=== PATIENT | female | born 1940 | race Caucasian/White ===

== ENCOUNTER → 2017-11-02 08:06 | Outpatient (CLI) | payer MEDICARE, OTHER, SELFPAY ==
[2017-11-02 10:46] LABS: Anion Gap 8 (5-15); BUN 18 mg/dL (7-18); BUN/Creat Ratio 21.6 RATIO (10-20); Chloride 104 mmol/L (98-107); Cholesterol 253 mg/dL (200); Creatinine, Serum 0.83 mg/dL (0.55-1.02); EST Glomerular Filtration Rate 70 mL/min (>60); Est Glom Filt Rate - Afr Amer 85 mL/min (>60); Glucose 86 mg/dL (74-106); High Density Lipoprotein 60 mg/dL; Sodium Level 140 mmol/L (136-145); Thyroid Stim Hormone (TSH) 3.14 uIU/mL (0.358-3.74); Triglycerides 146 mg/dL; Very Low Density Lipoprotein 29 mg/dL (5-40)
== END ==
PROVIDERS: Family Provider Family Medicine; PCP Family Medicine; Visit Provider Family Medicine
DX: E78.5 Hyperlipidemia, unspecified (principal); E03.9 Hypothyroidism, unspecified; F32.9 Major depressive disorder, single episode, unspecified
CPT/HCPCS: 36415; 80048; 80061; 84443

== ENCOUNTER → 2018-06-14 | Outpatient (CLI) | payer MEDICARE, OTHER, SELFPAY ==
[2016-07-20 10:50] VITALS: BMI 28.7
[2018-06-14 17:30] LABS: Absolute Lymphocyte Count 1.35 X10^3/ul (0.83-4.51); Absolute Neutrophil Count 2.2 X10^3/uL (2.0-7.7); Basophil# 0.02 X10^3/uL; Basophil% 0.5 % (0-1); Eosinophil# 0.28 X10^3/uL; Eosinophils% 6.7 % (0-5); Hematocrit 37.9 % (37-47); Hemoglobin 12.9 g/dl (12.0-15.0); Lymphocyte # 1.35 X10^3/ul (4.0); Lymphocyte % 32.1 % (19-41); Mean Corpuscular Volume 88.1 fL (81-99); Mean Platelet Vol. 9.4 fl (6.2-12.0); Monocyte# 0.31 X10^3/uL; Monocyte% 7.4 % (0-10); Neutrophil # 2.23 X10^3/uL (2.7-7.7); Neutrophil % 53.1 % (47-70); Platelet Count 198 K/mm3 (150-450); RBC Distribution Width CV 12.3 % (11.6-14.6); RBC Distribution Width SD 38.9 fl (35.1-43.9); White Blood Count 4.2 K/mm3 (4.4-11.0)
[2018-06-14 17:32] LABS: POSITIVE COUNT NO; POSITIVE DIFFERENTIAL NO; POSITIVE MORPHOLOGY NO
[2018-06-14 17:43] LABS: Vitamin D,25 Hydroxy 65.3 ng/mL (29.95-100.01)
[2018-06-14 17:49] LABS: Anion Gap 7 (5-15); BUN 18 mg/dL (7-18); BUN/Creat Ratio 22.4 RATIO (10-20); Calcium,Total 8.7 mg/dL (8.5-10.1); Chloride 104 mmol/L (98-107); EST Glomerular Filtration Rate 73 mL/min (>60); Est Glom Filt Rate - Afr Amer 88 mL/min (>60); Glucose 90 mg/dL (74-106); Potassium 3.9 mmol/L (3.5-5.1); Sodium Level 139 mmol/L (136-145); Thyroid Stim Hormone (TSH) 4.05 uIU/mL (0.358-3.74)
== END | disposition home or self-care (01) ==
LOC: MFPLAB 15:03
PROVIDERS: Family Provider Family Medicine; PCP Family Medicine; Referring Provider Family Medicine; Visit Provider Family Medicine
DX: R53.83 Other fatigue (principal)
CPT/HCPCS: 36415; 80048; 82306; 84443; 85025

== ENCOUNTER → 2018-12-13 | Outpatient (CLI) | payer MEDICARE, OTHER, SELFPAY ==
[2016-07-20 10:50] VITALS: BMI 28.7
[2018-12-13 11:38] LABS: Thyroid Stim Hormone (TSH) 3.97 uIU/mL (0.358-3.74)
== END | disposition home or self-care (01) ==
LOC: MFPLAB 09:26
PROVIDERS: Family Provider Family Medicine; PCP Family Medicine; Referring Provider Family Medicine; Visit Provider Family Medicine
DX: E03.9 Hypothyroidism, unspecified (principal)
CPT/HCPCS: 36415; 84443

== ENCOUNTER → 2019-05-10 07:27 | Outpatient (CLI) | payer MEDICARE, OTHER, SELFPAY ==
[2016-07-20 10:50] VITALS: BMI 28.7
[2019-05-10 11:26] LABS: ALB/GLOB Ratio 1.1 RATIO (0.9-2.4); AST(SGOT) 18 U/L (15-37); Alanine Aminotransfer ALT/SGPT 26 U/L (13-56); Albumin, Serum 3.9 g/dL (3.2-5.0); Alkaline Phosphatase 97 U/L (45-117); Anion Gap 5 (5-15); BUN 17 mg/dL (7-18); BUN/Creat Ratio 23.3 RATIO (10-20); Calcium,Total 8.8 mg/dL (8.5-10.1); Chloride 105 mmol/L (98-107); Cholesterol 271 mg/dL (200); Creatinine, Serum 0.73 mg/dL (0.55-1.02); EST Glomerular Filtration Rate 81 mL/min (>60); Est Glom Filt Rate - Afr Amer 98 mL/min (>60); Globulin 3.4 g/dL (2.2-4.2); Glucose 90 mg/dL (74-106); High Density Lipoprotein 61 mg/dL; Protein, Total 7.3 g/dL (6.4-8.2); Sodium Level 139 mmol/L (136-145); Thyroid Stim Hormone (TSH) 2.25 uIU/mL (0.358-3.74); Triglycerides 161 mg/dL; Very Low Density Lipoprotein 32 mg/dL (5-40)
== END ==
PROVIDERS: PCP Family Medicine; Referring Provider Family Medicine; Visit Provider Family Medicine
DX: E03.9 Hypothyroidism, unspecified (principal); Z13.1 Encounter for screening for diabetes mellitus; Z13.220 Encounter for screening for lipoid disorders
CPT/HCPCS: 36415; 80053; 80061; 84443

== ENCOUNTER 2020-04-10 09:41 | Outpatient (RCR) | payer MEDICARE, OTHER, SELFPAY ==
[2016-07-20 10:50] VITALS: BMI 28.7
== END 2020-04-10 23:59 ==
LOC: IMMUN 09:41
PROVIDERS: PCP Family Medicine; Visit Provider Family Medicine
DX: Z23 Encounter for immunization (principal)
CPT/HCPCS: 0011A; 0012A

== ENCOUNTER → 2020-05-09 07:17 | Outpatient (CLI) | payer MEDICARE, OTHER, SELFPAY ==
[2020-05-09 07:42] LABS: Absolute Lymphocyte Count 0.56 X10^3/uL (0.83-4.51); Absolute Neutrophil Count 2.7 X10^3/uL (2.0-7.7); Basophil# 0.02 X10^3/uL; Basophil% 0.5 % (0-1); Eosinophils% 2.7 % (0-5); Hematocrit 36.5 % (37-47); Hemoglobin 12.2 g/dL (12.0-15.0); Lymphocyte # 0.56 X10^3/ul (4.0); Lymphocyte % 15.4 % (19-41); Mean Corp Hgb Conc 33.4 g/dL (32-36); Mean Corpuscular Hgb 29.8 pg (27.0-32.0); Mean Corpuscular Volume 89.2 fL (81-99); Mean Platelet Vol. 8.6 fl (6.2-12.0); Monocyte# 0.24 X10^3/uL; Monocyte% 6.6 % (0-10); NRBC Flagged by Analyzer 0 % (0-5); Neutrophil % 74.3 % (47-70); POSITIVE DIFFERENTIAL YES; Platelet Count 141 K/mm3 (150-450); Red Blood Count 4.09 M/mm3 (4.2-5.4); White Blood Count 3.6 K/mm3 (4.4-11.0)
[2020-05-09 07:44] LABS: Differential Indicated SCAN CRITERIA MET
[2020-05-09 08:34] LABS: ALB/GLOB Ratio 1.1 RATIO (0.9-2.4); AST(SGOT) 18 U/L (15-37); Alanine Aminotransfer ALT/SGPT 27 U/L (13-56); Albumin, Serum 3.8 g/dL (3.2-5.0); Alkaline Phosphatase 101 U/L (45-117); Anion Gap 8 (5-15); BUN 15 mg/dL (7-18); BUN/Creat Ratio 18.6 RATIO (10-20); Calcium,Total 8.7 mg/dL (8.5-10.1); Chloride 104 mmol/L (98-107); Cholesterol 268 mg/dL (200); Creatinine, Serum 0.81 mg/dL (0.55-1.02); EST Glomerular Filtration Rate 72 mL/min (>60); Est Glom Filt Rate - Afr Amer 88 mL/min (>60); Globulin 3.5 g/dL (2.2-4.2); Glucose 100 mg/dL (74-106); High Density Lipoprotein 62 mg/dL; Potassium 3.9 mmol/L (3.5-5.1); Protein, Total 7.3 g/dL (6.4-8.2); Sodium Level 139 mmol/L (136-145); Thyroid Stim Hormone (TSH) 2.69 uIU/mL (0.358-3.74); Triglycerides 185 mg/dL; Very Low Density Lipoprotein 37 mg/dL (5-40)
[2020-05-09 10:42] LABS: Differential Comment SCANNED
[2020-05-12 10:09] LABS: Pathologist Review Reviewed
== END ==
PROVIDERS: PCP Family Medicine; Visit Provider Family Medicine
DX: E03.9 Hypothyroidism, unspecified (principal); E78.5 Hyperlipidemia, unspecified
CPT/HCPCS: 36415; 80053; 80061; 84443; 85025

== ENCOUNTER → 2020-11-20 07:51 | Outpatient (CLI) | payer MEDICARE, OTHER, SELFPAY ==
[2020-11-20 10:38] LABS: ALB/GLOB Ratio 0.9 RATIO (0.9-2.4); AST(SGOT) 14 U/L (15-37); Alanine Aminotransfer ALT/SGPT 29 U/L (13-56); Albumin, Serum 3.6 g/dL (3.2-5.0); Alkaline Phosphatase 95 U/L (45-117); Anion Gap 6 (5-15); BUN 14 mg/dL (7-18); BUN/Creat Ratio 17.3 RATIO (10-20); Calcium,Total 8.6 mg/dL (8.5-10.1); Chloride 104 mmol/L (98-107); Cholesterol 260 mg/dL (200); Creatinine, Serum 0.81 mg/dL (0.55-1.02); EST Glomerular Filtration Rate 72 mL/min (>60); Est Glom Filt Rate - Afr Amer 87 mL/min (>60); Globulin 3.8 g/dL (2.2-4.2); Glucose 99 mg/dL (74-106); High Density Lipoprotein 59 mg/dL; Protein, Total 7.4 g/dL (6.4-8.2); Sodium Level 139 mmol/L (136-145); Triglycerides 192 mg/dL; Very Low Density Lipoprotein 38 mg/dL (5-40)
== END ==
PROVIDERS: PCP Family Medicine; Referring Provider Family Medicine; Visit Provider Family Medicine
DX: E78.5 Hyperlipidemia, unspecified (principal); E03.9 Hypothyroidism, unspecified
CPT/HCPCS: 36415; 80053; 80061; 84443

== ENCOUNTER → 2021-06-29 | Outpatient (CLI) | payer MEDICARE, OTHER, SELFPAY ==
--- NOTE | 2021-06-29 16:30 | RAD_ITS ---
STUDY: X-RAY - RIGHT ANKLE REASON FOR EXAM: Female, 80 years old. Ankle strain. Pain. TECHNIQUE: 3 view(s) of the ankle. COMPARISON: None. FINDINGS: Generalized osteopenia. Normal visualized distal tibia and fibula. Normal medial and lateral malleoli. Normal tibiotalar articulation and ankle mortise. Small inferior calcaneal spur. The visualized subtalar, talonavicular, calcaneocuboid and tarsal articulations are normal. Diffuse soft tissue swelling. RAD/Ankle min 3 Views IMPRESSION: Osteopenia with small inferior calcaneal spur. Diffuse soft tissue swelling. No acute finding. Electronically Signed: Jim Aquino MD at 10:15 EDT ,
== END | disposition home or self-care (01) ==
LOC: MTRAD 16:27
PROVIDERS: PCP Nurse Practitioner Family; Referring Provider Family Medicine; Visit Provider Family Medicine
DX: S96.911A Strain of unspecified muscle and tendon at ankle and foot level, right foot, initial encounter (principal)
CPT/HCPCS: 73610

== ENCOUNTER → 2022-06-07 | Outpatient (CLI) | payer MEDICARE, OTHER, SELFPAY ==
[2022-06-07 10:00] LABS: Absolute Lymphocyte Count 1.09 X10^3/uL (0.83-4.51); Absolute Neutrophil Count 1.1 X10^3/uL (2.0-7.7); Basophil# 0.03 X10^3/uL; Basophil% 1.1 % (0-1); Eosinophil# 0.29 X10^3/uL; Eosinophils% 10.7 % (0-5); Hematocrit 36.6 % (37-47); Hemoglobin 12.1 g/dL (12.0-15.0); Lymphocyte # 1.09 X10^3/ul (0.83-4.51); Lymphocyte % 40.1 % (19-41); Mean Corp Hgb Conc 33.1 g/dL (32-36); Mean Corpuscular Hgb 29.3 pg (27.0-32.0); Mean Corpuscular Volume 88.6 fL (81-99); Mean Platelet Vol. 8.8 fl (6.2-12.0); Monocyte# 0.22 X10^3/uL; Monocyte% 8.1 % (0-10); NRBC Flagged by Analyzer 0 % (0-5); Neutrophil # 1.08 X10^3/uL (2.7-7.7); Neutrophil % 39.6 % (47-70); Platelet Count 188 K/mm3 (150-450); RBC Distribution Width CV 12.8 % (11.6-14.6); RBC Distribution Width SD 41.2 fl (35.1-43.9); Red Blood Count 4.13 M/mm3 (4.2-5.4); White Blood Count 2.7 K/mm3 (4.4-11.0)
[2022-06-07 10:24] LABS: ALB/GLOB Ratio 1.1 RATIO (0.9-2.4); AST(SGOT) 19 U/L (15-37); Alanine Aminotransfer ALT/SGPT 26 U/L (13-56); Albumin, Serum 3.8 g/dL (3.2-5.0); Alkaline Phosphatase 84 U/L (45-117); Anion Gap 5 (5-15); BUN 17 mg/dL (7-18); BUN/Creat Ratio 19.4 RATIO (10-20); Calcium,Total 8.9 mg/dL (8.5-10.1); Chloride 107 mmol/L (98-107); Cholesterol 252 mg/dL (200); Creatinine, Serum 0.88 mg/dL (0.55-1.02); EST Glomerular Filtration Rate 65 mL/min (>60); Est Glom Filt Rate - Afr Amer 79 mL/min (>60); Globulin 3.6 g/dL (2.2-4.2); Glucose 94 mg/dL (74-106); High Density Lipoprotein 66 mg/dL; Potassium 3.9 mmol/L (3.5-5.1); Protein, Total 7.4 g/dL (6.4-8.2); Sodium Level 139 mmol/L (136-145); Triglycerides 94 mg/dL; Very Low Density Lipoprotein 19 mg/dL (5-40)
[2022-06-07 13:15] LABS: Microalbumin,Random Urine 21.3 mg/L (NO RANGE EST.)
== END | disposition home or self-care (01) ==
PROVIDERS: PCP Family Medicine; Referring Provider Family Medicine; Visit Provider Family Medicine
DX: D69.6 Thrombocytopenia, unspecified (principal); E78.5 Hyperlipidemia, unspecified; I10 Essential (primary) hypertension; E03.9 Hypothyroidism, unspecified
CPT/HCPCS: 36415; 80053; 80061; 82043; 84443; 85025

== ENCOUNTER → 2022-06-21 | Outpatient (CLI) | payer MEDICARE, OTHER, SELFPAY ==
--- NOTE | 2022-06-21 13:20 | BD_ITS ---
STUDY: DUAL ENERGY X-RAY ABSORPTIOMETRY / DXA REASON FOR EXAM: Female, 81 years old. 733.00OsteoporosisBONE DENSITY REASON FOR EXAM TECHNIQUE: Bone Mineral Density (BMD) measurements of lumbar spine and bilateral hips were obtained. COMPARISON: None. FINDINGS: Lumbar Spine (L1-L4): g/cm2 (1.118) / T-score (0.6) / Z-score (3.5) Findings are suggestive of normal bone density with a low fracture risk. Left Femur Total: g/cm2 (0.817) / T-score (-1.0) / Z-score (1.3) Left Femoral Neck: g/cm2 (0.676) / T-score (-1.6) / Z-score (0.9) Right Femur Total: g/cm2 (0.778) / T-score (-1.3) / Z-score (0.9) Right Femoral Neck: g/cm2 (0.618) / T-score (-2.1) / Z-score (0.4) BD/Dexa Bone Density Study IMPRESSION: The patient is considered osteopenic as outlined below according to World Flynn Organization (WHO) criteria with a high fracture risk. Reference Information: The T-score is the number of standard deviations above or below the standard which is normal for young adults at their peak bone mineral density. The World Health Organization (WHO) interprets the T-scores as follows: Above -1 Normal bone density Between -1 and -2.5 Osteopenia Equal to / or below -2.5 Osteoporosis As a practical clinical guideline, osteopenia may be graded as follows: Mild -1 through -1.5 Moderate -1.6 through -2.0 Severe -2.1 through -2.4 The Z-score is the number of standard deviations above or below age-matched controls. A Z-score of less than -1.5 would be considered abnormal. References: 1. NIH Osteoporosis and Related Bone Diseases www osteo.org 2. International Society for Clinical Densitometry www iscd.org 3. National Osteoporosis Foundation www nof.org Electronically Signed: Ramon Mendes MD at 14:41 EDT ,
== END | disposition home or self-care (01) ==
LOC: OPBD 13:15
PROVIDERS: PCP Family Medicine; Referring Provider Family Medicine; Visit Provider Family Medicine
DX: Z13.820 Encounter for screening for osteoporosis (principal); M81.0 Age-related osteoporosis without current pathological fracture
CPT/HCPCS: 77080

== ENCOUNTER → 2022-07-05 | Outpatient (CLI) | payer MEDICARE, OTHER, SELFPAY ==
[2022-07-05 10:40] LABS: Absolute Lymphocyte Count 1.06 X10^3/uL (0.83-4.51); Absolute Neutrophil Count 1.2 X10^3/uL (2.0-7.7); Basophil# 0.02 X10^3/uL; Basophil% 0.7 % (0-1); Eosinophil# 0.27 X10^3/uL; Eosinophils% 9.7 % (0-5); Hematocrit 38.3 % (37-47); Hemoglobin 12.6 g/dL (12.0-15.0); Lymphocyte # 1.06 X10^3/ul (0.83-4.51); Mean Corp Hgb Conc 32.9 g/dL (32-36); Mean Corpuscular Hgb 29.8 pg (27.0-32.0); Mean Corpuscular Volume 90.5 fL (81-99); Mean Platelet Vol. 8.9 fl (6.2-12.0); Monocyte# 0.27 X10^3/uL; Monocyte% 9.7 % (0-10); NRBC Flagged by Analyzer 0 % (0-5); Neutrophil # 1.16 X10^3/uL (2.7-7.7); Neutrophil % 41.5 % (47-70); Platelet Count 198 K/mm3 (150-450); RBC Distribution Width CV 12.6 % (11.6-14.6); RBC Distribution Width SD 41.6 fl (35.1-43.9); Red Blood Count 4.23 M/mm3 (4.2-5.4); White Blood Count 2.8 K/mm3 (4.4-11.0)
[2022-07-05 11:16] LABS: Thyroid Stim Hormone (TSH) 4.94 uIU/mL (0.358-3.74)
== END | disposition home or self-care (01) ==
LOC: MFPLAB 09:12
PROVIDERS: Nurse Practitioner Family; PCP Family Medicine; Visit Provider Family Medicine
DX: D72.9 Disorder of white blood cells, unspecified (principal); E03.9 Hypothyroidism, unspecified
CPT/HCPCS: 36415; 84443; 85025

== ENCOUNTER → 2022-09-15 | Outpatient (CLI) | payer MEDICARE, OTHER, SELFPAY ==
[2022-09-15 10:53] LABS: T4 Free Direct 1.19 ng/dL (0.76-1.46); Thyroid Stim Hormone (TSH) 2.38 uIU/mL (0.358-3.74)
== END | disposition home or self-care (01) ==
LOC: MTLAB 08:22
PROVIDERS: PCP Family Medicine; Visit Provider Family Medicine
DX: E03.9 Hypothyroidism, unspecified (principal)
CPT/HCPCS: 36415; 84439; 84443

== ENCOUNTER 2023-01-17 12:15 | Outpatient (CLI) | payer MEDICARE, OTHER, SELFPAY ==
[2023-01-17 12:39] LABS: Absolute Neutrophil Count 5.4 X10^3/uL (2.0-7.7); Basophil# 0.02 X10^3/uL; Basophil% 0.3 % (0-1); Eosinophil# 0.16 X10^3/uL; Eosinophils% 2.5 % (0-5); Hematocrit 38.8 % (37-47); Hemoglobin 12.7 g/dL (12.0-15.0); Lymphocyte % 7.9 % (19-41); Mean Corp Hgb Conc 32.7 g/dL (32-36); Mean Corpuscular Hgb 29.1 pg (27.0-32.0); Mean Platelet Vol. 8.7 fl (6.2-12.0); Monocyte# 0.26 X10^3/uL; Monocyte% 4.1 % (0-10); NRBC Flagged by Analyzer 0 % (0-5); Neutrophil # 5.39 X10^3/uL (2.7-7.7); Neutrophil % 84.7 % (47-70); POSITIVE DIFFERENTIAL YES; Platelet Count 207 K/mm3 (150-450); RBC Distribution Width SD 39.1 fl (35.1-43.9); Red Blood Count 4.36 M/mm3 (4.2-5.4); White Blood Count 6.4 K/mm3 (4.4-11.0)
[2023-01-17 12:43] LABS: Differential Indicated SCAN CRITERIA MET
--- NOTE | 2023-01-17 13:02 | CT_ITS ---
STUDY: CT ABDOMEN AND PELVIS WITH CONTRAST REASON FOR EXAM: Female, 82 years old. RLQ PAIN RADIATION DOSAGE (If Supplied By Facility): CTDIvol = ( 13.58 ) mGy, DLP = ( 814.31 ) mGycm TECHNIQUE: Transaxial images were obtained from the dome of the diaphragm to the symphysis pubis without oral contrast. IV 100mL Isovue-300 was administered. Sagittal and coronal images were reconstructed. Individualized dose optimization techniques were used for this CT. COMPARISON: None. FINDINGS: Calcified granuloma in the right lower lobe. Linear scarring in the left lower lobe. The visualized portions of the heart are within normal limits. There is decreased attenuation of the liver consistent with steatosis. Normal gallbladder and extrahepatic biliary system. Normal spleen. Normal pancreas. Normal bilateral adrenal glands. Normal right kidney. Normal left kidney. Normal visualized stomach. Normal small intestine. Normal colon. The appendix is visualized and appears normal. There is scattered atherosclerotic calcification of the abdominal aorta, without a demonstrated aneurysm. Normal inferior vena cava. Normal retroperitoneum. Cystocele. There is absence of the uterus consistent with a prior hysterectomy. Normal abdominal wall. There are diffuse degenerative changes of the visualized lumbar spine. Loss of the normal lumbar lordosis. Levoscoliosis. CT/Abdomen/Pelvis WITH Contrast IMPRESSION: Fatty infiltration of the liver. Status post hysterectomy. No acute abnormality is seen. Electronically Signed: Ramon Mendes MD at 15:19 EST ,
[2023-01-17 13:07] LABS: Differential Comment SCANNED
[2023-01-17 13:24] LABS: AST(SGOT) 16 U/L (15-37); Alanine Aminotransfer ALT/SGPT 27 U/L (13-56); Alkaline Phosphatase 70 U/L (45-117); Anion Gap 7 (5-15); BUN 17 mg/dL (7-18); BUN/Creat Ratio 18.3 RATIO (10-20); Calcium,Total 9.3 mg/dL (8.5-10.1); Chloride 105 mmol/L (98-107); Cholesterol 264 mg/dL (200); Creatinine, Serum 0.93 mg/dL (0.55-1.02); EST Glomerular Filtration Rate 61 mL/min (>60); Est Glom Filt Rate - Afr Amer 74 mL/min (>60); Globulin 3.9 g/dL (2.2-4.2); Glucose 150 mg/dL (74-106); High Density Lipoprotein 81 mg/dL; Potassium 4.1 mmol/L (3.5-5.1); Protein, Total 7.9 g/dL (6.4-8.2); Sodium Level 139 mmol/L (136-145); Thyroid Stim Hormone (TSH) 0.86 uIU/mL (0.358-3.74); Triglycerides 60 mg/dL; Very Low Density Lipoprotein 12 mg/dL (5-40)
== END 2023-01-17 23:59 | disposition home or self-care (01) ==
LOC: CT 12:16
PROVIDERS: PCP Family Medicine; Referring Provider Family Medicine; Visit Provider Family Medicine
DX: R10.31 Right lower quadrant pain (principal); Z13.21 Encounter for screening for nutritional disorder; E03.9 Hypothyroidism, unspecified; I10 Essential (primary) hypertension; E78.5 Hyperlipidemia, unspecified; D72.819 Decreased white blood cell count, unspecified; Z13.820 Encounter for screening for osteoporosis
CPT/HCPCS: 36415; 74177; 80053; 80061; 82306; 84443; 85025; Q9967

== ENCOUNTER 2023-01-31 08:00 | Outpatient (RCR) | payer MEDICARE, OTHER, SELFPAY ==
--- NOTE | 2023-01-31 09:05 | BH.SGPN.GN ---
Behaviors/Verbalizations/Mental Status: [] Eye contact is good. Motor activity is appropriate. Appearance is casual. Speech is Appropriate. Mood is anxious. Affect is congruent. Thoughts are linear and logical. No evidence of psychosis. Reviewed daily check in sheet and no reports of suicidal ideations or intent. Client Response/Progress/Benefit: [] Pt was an active participant in group discussions. Attentive. Daily symptom tracker notes 05/08 for depression, anxiety, and irritability. This was pt's first day in [facility] and she shared with the group symptoms and events that led her be admitted. States my brain just exploded in the past several months. Reports complicated grief related to her brother's of pancreatic cancer in October. Her anxiety increased which led to daily panic attacks, guilt, regret, anger, and depression. Began to isolation and avoid events. Also reports significant health anxiety which led to numerous medical tests which were negative. States I just can't fix myself so I came here. Group was supportive and provided encouragement which was beneficial. Plan is to continue in [facility] to prevent decompensation, stabilize anxiety, and increase healthy coping. Narrative Note: []
--- NOTE | 2023-01-31 10:10 | BH.SGPN.GN ---
Behaviors/Verbalizations/Mental Status: [] Eye contact is good. Motor activity is appropriate. Appearance is casual. Speech is Appropriate. Mood is euthymic. Affect is congruent. Thoughts are linear and logical. No evidence of psychosis. Client Response/Progress/Benefit: [] Client's first day in program and responded well. Was an active participant during interactive group discussions. Attentive during psychoeducation on the six types of boundaries (physical, emotional, intellectual, sexual, time, and material) AEB note-taking. Along with peers contributed to interactive discussion on defining what a boundary is in mental health. Client along with peers identified challenges to setting boundaries which included; fear of hurting other people, people pleasing mentality, and guilt. Client along with peers identified the benefits to setting boundaries such as having more time for self, not feeling taken advantage of, and improved mental health. Group discussed the mental health benefits to establishing boundaries at work, school, and home. Client benefited from increased awareness and insight on the importance/benefit to setting health boundaries. Will continue in IOP to prevent decompensation, stabilize anxiety, and improve functioning. Narrative Note: []
--- NOTE | 2023-01-31 11:10 | BH.SGPN.GN ---
Behaviors/Verbalizations/Mental Status: [] Eye contact is good. Motor activity is appropriate. Appearance is casual. Speech is Appropriate. Mood is euthymic. Affect is congruent. Thoughts are linear and logical. No evidence of psychosis. Client Response/Progress/Benefit: [] Client's first day in program. Client responded well to session AEB listening attentively to peers, providing some input, as well as taking notes throughout. Engaged in discussion on different styles of boundary setting. Reports connecting most with flexible style of boundary setting, identifying that is strong in her Opinions, but will help people out at times more than she should. Participated in small group discussion brainstorming various strategies for improving healthy boundary setting. Client reports wanting to begin using skill of being more direct. Seemed to benefit from increased awareness of how different boundary styles can impact mental health. Will continue IOP tx to increase self-care, improve overall functioning, and prevent decompensation. Narrative Note: []
--- NOTE | 2023-01-31 15:19 | BH.COMM ---
Communication Note Communication with Client Communication Note: Pt with pt to complete initial paperwork and administer the CSSR-S assessment and screening. No significant changes since intake assessment. Pt is low risk on the CSSR-S and has no history of suicide attempts in her lifetime. Pt admits to having thoughts of within the past month, but no SI. Discussed with tx team and pt will be admitted to [facility] level of care with diagnosis of MDD, recurrent, severe, without psychosis F 33.2.
--- NOTE | 2023-02-01 09:05 | BH.SGPN.GN ---
Behaviors/Verbalizations/Mental Status: [] Eye contact is good. Motor activity is appropriate. Appearance is casual. Speech is Appropriate. Mood is anxious. Affect is congruent. Thoughts are linear and logical. No evidence of psychosis. Reviewed daily check in sheet and no reports of suicidal ideations or intent. Client Response/Progress/Benefit: [] Pt was an active participant in group discussion. Attentive. Pt states I feel so much better since starting IOP. Reports early benefits from support. She talked briefly about mental health stigma and applauded those present for attending the program. She discussed social stressors (i.e. social media) and its overall impact on mental health. Check-in was superficial spending her time praising others for their progress and efforts. This remains her first week in IOP and would appear she struggles with vulnerability at times in front of peers. Progress noted per pt report. Benefited from group support, encouragement, and feedback. Will continue in IOP to prevent decompensation, decrease anxiety, increase healthy coping, and improve functioning. Narrative Note: []
--- NOTE | 2023-02-01 10:10 | BH.SGPN.GN ---
Behaviors/Verbalizations/Mental Status: []Eye contact is fair. Motor activity is appropriate. Appearance is casual. Speech is Appropriate. Mood is euthymic. Affect is congruent. Thoughts are linear and logical. No evidence of psychosis. Client Response/Progress/Benefit: []Pt was an active participant in group discussions AEB listening attentively to others and providing feedback at times. Participated in and was engaged during experiential activity. Able to relate activity to group topic of FOF. Engaged during interactive discussion on what failure means to the group in which peers identified and defined failure. Group was able to identify impact of fear of failure on mental health. Attentive during interactive discussion on the role that FOF plays in mental wellness, depression, anxiety, and growth. Pt reported fear of failure has kept pt from going back to school. Benefited from increased awareness of how the role that FOF plays in mental health and decision-making. Will continue in IOP to prevent decompensation, and increase self-compassion, and reduce intensity of anxiety.? Narrative Note: []
--- NOTE | 2023-02-01 11:10 | BH.SGPN.GN ---
Behaviors/Verbalizations/Mental Status: []Pt alert and oriented, casually dressed and groomed. Eye contact good. Motor activity appropriate. Speech within normal limits. Affect congruent, mood euthymic and anxious. Thoughts linear, logical, no signs of hallucinations or delusions. Client Response/Progress/Benefit: []Pt responded well to session, engaged in the experiential activity and attentive throughout group processing. Pt completed fear of failure worksheet and was able to identify thoughts and behaviors that reinforce personal fear of failure including: fearing of judgement, avoidance, and nor setting goals. Pt participated in group discussion regarding strategies to overcome fear of failure. Identified wanting to work on?using self-compassion. Appeared to benefit from increased knowledge of strategies to combat fear of failure and gaining self-awareness. Pt will continue IOP tx to prevent decompensation, improve daily functioning, and reduce intensity of anxiety.? Narrative Note: []
--- NOTE | 2023-02-01 12:35 | PCM.BH.PSYEV ---
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 The patient's symptoms of anxiety depression and grief have worsened since the of her 80-year-old brother and October 2022 from pancreatic cancer. She was very close to her brother and he about 3 months after diagnosis and this was very stressful and anxiety inducing for the patient. She began having panic attacks and worrying and having a fear of pancreatic cancer. Her primary care doctor did numerous scans and everything was negative and she was told it was probably anxiety. The patient states that she is no longer worried about having cancer. She has been avoiding activities like choir and swimming class though she is normally a pretty active and social person. She has a long history of some sleep difficulties but this has improved lately with the medication and she is sleeping 8 hours but wakes up with anxiety and some nausea. She remains very angry at her brother's doctors in [place] and she states that in her history she has used anger often as a defense mechanism. She was referred to the [facility] by a friend who recently did the program. She denies any history of self-harm. She is a worrier by nature and states that her brain never shuts off. She has endorsed sad mood but she states it is less sad and has improved lately. She denies hopelessness but admits to occasional worthlessness and admits to feeling guilty. She is somewhat anhedonic. She lost 5 pounds since October when her brother but her appetite has improved lately. Her energy level is okay overall and concentration is a little decreased. She denies passive thoughts of and denies suicidal ideation states that she would never do that to my family. She denies plan for suicide, homicidal ideation, hallucinations, delusions or symptoms of jeny ever. She is a worrier by nature and often ruminates negatively. She is avoiding social situations now because she does not want to have to explain anything to people. She is having panic attacks about 2 times a day. She denies OCD, trauma, seizure, head trauma or PTSD. She has a history of bulimia with purging by enemas but only in high school and nothing since. Current Psychiatric Medications: [] Celexa 40 mg p.o. daily (dose increased 1 month ago); trazodone 150 mg p.o. nightly; Ativan of unknown dose that her sister has and she takes 1 once in a while for anxiety. Past Psychiatric History: [] 1 psych admit 1996 at age 56 where she was very anxious and depressed. She was weaned off of amitriptyline recently after being on it 30 years and last took it 2 weeks ago. She has been depressed off-and-on all her life starting in her teens because she was the oldest with 3 younger brothers and there were not many opportunities for women in those days and she did not really want to be a girl. She took her first psych meds at age 23 or so after being sent to [place] by herself by a [employer] she was in. She took Ativan for panic attacks once a week and it has helped her but she is afraid of getting addicted to it. She was not dependent on Valium in the past when she took it for anxiety. She states that she has taken a lot of meds in the past. She had counseling for the first time at age 33 and it has been helpful and that was during her first marriage difficulties. Substance Use History: [] She takes 1 shot of alcohol rarely and has had none since her brother in October because she is afraid of using drugs for depression. Non-smoker. No other drug use. No rehab ever. Allergies: [] Contrast media, Zocor, Paxil, Lipitor, Crestor Medications: [] Psych meds plus thyroxine, Amopiline besilate for high blood pressure Past Medical History: [] Hypertension, hypothyroidism, arthritis in 1 foot. She has had a hysterectomy with 1 ovary remaining. She had left shoulder replacement. Family Psychiatric History: [] Mother at age 94 and father at age 87 after stroke. Mother and father both had anxiety and depression. Paternal grandfather completed suicide. Mother was addicted to Librium she took for anxiety. She has 1 son with depression and an second son with OCD. Personal/Social History: [] She was born and raised in [place] and describes her childhood as a bummer. She was the oldest child and only girl with 3 younger brothers. She felt somewhat ignored and like the boys were more important than her. She helped his father and his business however at age 9 and was proud of that. Her mother and father were not loving when she was young and never hugged or kissed her. Her father was mean to her second brother all the time but the patient states she was never abused verbally, physically or sexually. At age 19 the patient wanted to get training as a nurse and her parents were not supportive of a girl getting education so she joined a [employer] at age 19 because she knew she could get training as a nurse. The patient states that her mother could not love anyone when her children got older. The patient hated school because it was a [employer] school and she states that the months told her that everything was a sin. She goes to gnosticism now but does not believe it. She is in the choir but is having issues with some of the women because they are very critical. She graduated high school and work till age 19 until she could join the con[employer] to get educated as a nurse. Brothers went to college. Patient was a none from her and the comment for 9 years and then her first at age 30 after leaving the convent he was. He was an alcoholic and they were 14 years and produced 2 sons. She got for the second time at age 50 and has 7 grandkids and is close to most of them. There was verbal abuse by her first but no abuse by her second who is supportive of her. Legal History: [] Negative no arrests. 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 Review of Systems: [] Patient has arthritis and pain sometimes in her foot and gets lightheaded at times but review of systems is otherwise negative except as noted in the present illness. Vital Signs: [] Vital signs reviewed in the nurses notes and records and updated and the patient is deemed medically able to participate in the IOP. Laboratory: Labs were done by outpatient providers. Mental Status Examination: [] Patient is an 82-year-old female who appears normal for stated age and is casually dressed and groomed with good hygiene. She is ambulatory with a normal gait and has no psychomotor agitation or retardation. Eye contact is good and speech is normal rate and rhythm and fluent with no pressure. Mood is depressed and anxious. Affect is mildly constricted. Thought process is goal-directed and organized. Thought content: There is no evidence of passive thoughts of , suicidal ideation, plan for suicide, homicidal ideation, hallucinations, delusions or jeny. Reality testing is intact. Intelligence is above average. Judgment is intact. Insight is good. Diagnoses: [] 1. Major depressive disorder, recurrent, severe without psychosis 2. Generalized anxiety disorder 3. Bereavement 4. Panic disorder 5. Primary support issues Plan: [] The patient will start the IOP in behavioral health at [facility] as the structure, support, education and group therapy will hopefully prevent worsening of the patient's symptoms that might require hospitalization. She felt safe during the interview and if it anytime she does not feel safe she will let us know or go to the emergency room. The risk, options, possible complications and side effects of the medications were discussed with the patient and she understands and accepts these. The patient agrees to decrease her trazodone to 100 mg p.o. nightly. In addition she agrees to add Seroquel 12.5 mg p.o. nightly and a prescription is sent in for this. The patient agrees to try to go back to her swimming class to help get rid of some of her nervous energy. I will see the patient in follow-up in 2 weeks and she will continue to follow-up with her outpatient medical and psychiatric providers.
--- NOTE | 2023-02-01 12:47 | BH.DR.ITP ---
Initial Treatment Plan Patient Information Visit Information: ADMISSION DATE: EXPECTED LOS: 4-6 weeks Problems/Symptoms Problem #1:: Anxiety Symptom:: Worry, rumination, panic attacks, avoidance Problem #2:: Depression Symptom:: Sadness, worthlessness, guilt, anhedonia, biological disruption of appetite, biological disruption of sleep, decreased concentration
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
--- NOTE | 2023-02-01 15:19 | BH.MTP ---
Master Treatment Plan Patient Information Program Physician:: Dr. 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 Functional Impact: Pt is an 82-year-old female with a long-standing history of depression and anxiety. Pt referred by a friend to [facility] tx due to pt's decompensation in mental health symptoms over the past few months. Pt reports trigger was her brother passing away in October of 2022. Pt shared my brain just cracked and pt became severely anxious with panic attacks. Pt reports two weeks ago her symptoms were the worst and pt had to get a scan done by her PCP because pt was convinced she had prostate cancer like my brother. Pt endorses a depressed mood with anhedonia, isolation, crying spells, anger, and guilt. Pt was having panic attacks every night, but Trazodone has helped with this. Pt still having panic attacks during the day and pt constantly worries. Pt's symptoms are impacting her overall functioning and quality of life. Goal Relevant Strengths/Supports: Pt is motivated, has lots of support from friends and family, and is excited about tx. Pt is also very healthy for her age and independent. Objectives Objective #1: Stated Objective: Client will learn and implement 2-3 calming skills to reduce overall anxiety and manage anxiety Interventions: Therapist and group sessions will help client identify physiological warning signs of anxiety, increase awareness of thoughts that increase anxiety, and identify behaviors that reinforce anxious symptoms. Group and individual counseling will teach client calming skills to help manage anxious symptoms. Discharge Criteria: Client will have achieved this goal when can verbalize at least 2 calming skills and reports skills successfully help reduce anxious symptoms. Target Date: 03/14/23 Review Date: 02/21/23 Status: open Objective #2: Stated Objective: Pt will decrease anxious symptoms AEB pt?s score on the DSM 5 cross-cutting measure improve pt?s daily functioning. Interventions: Through groups and individual therapy, pt will be provided education about anxiety?s impact on body and common physiological reaction to anxiety. Therapist will teach pt appropriate breathing techniques and build healthy coping skills to manage daily anxieties. Will introduce fear ladder and help client walk through personal fear ladder. Discharge Criteria: Pt will have met this goal when pt?s score on the DSM 5 cross cutting measure for anxiety has been decreased and per pt?s report daily functioning has improved. Target Date: 03/14/23 Review Date: 02/21/23 Status: open Problem/Goal #2 Problem/Goal #2 Stated Goal:: client will decrease depressive symptoms and isolation due to Major Depressive Disorder through Intensive Outpatient Program. Description of Barriers: grieving the loss of her brother, panic symptoms, and anxious thoughts. Functional Impact: Pt is an 82-year-old female with a long-standing history of depression and anxiety. Pt referred by a friend to [facility] tx due to pt's decompensation in mental health symptoms over the past few months. Pt reports trigger was her brother passing away in October of 2022. Pt shared my brain just cracked and pt became severely anxious with panic attacks. Pt reports two weeks ago her symptoms were the worst and pt had to get a scan done by her PCP because pt was convinced she had prostate cancer like my brother. Pt endorses a depressed mood with anhedonia, isolation, crying spells, anger, and guilt. Pt was having panic attacks every night, but Trazodone has helped with this. Pt still having panic attacks during the day and pt constantly worries. Pt's symptoms are impacting her overall functioning and quality of life. Goal Relevant Strengths/Supports: Pt is motivated, has lots of support from friends and family, and is excited about tx. Pt is also very healthy for her age and independent. Objectives Objective #1: Stated Objective: Client will learn and utilize 2-3 healthy coping strategies to manage depressive symptoms. Interventions: Therapist and group will utilize CBT techniques to assist client with understanding the connection between thoughts, feelings and behaviors. Education will be provided on behavioral activation. Therapist will assist client in learning internal coping strategies to manage depressive symptoms, along with helping client identify triggers. Discharge Criteria: Client will have achieved this goal when can verbalize and has practiced at least 2 healthy coping strategies that successfully manage depressive symptoms. Target Date: 03/14/23 Review Date: 02/21/23 Status: open Objective #2: Stated Objective: Pt will decrease depressive symptoms AEB pt?s score on the DSM 5 cross-cutting measure and improve pt?s daily functioning. Interventions: Through groups and individual therapy, pt will be provided with education on cognitive distortions, mistaken beliefs, and identifying and combating negative self-talk. Therapist will assist pt with getting back into the activities she once enjoyed as well as increasing healthy coping strategies. Discharge Criteria: Pt will have met this goal when pt?s score on the DSM 5 cross cutting measure for depression has been decreased and per pt?s report daily functioning has improved. Target Date: 03/14/23 Review Date: 02/21/23 Status: open
== END 2023-02-02 23:59 ==
LOC: BHIOP 08:00
PROVIDERS: PCP Family Medicine; Referring Provider Psychiatry & Neurology Psychiatry; Visit Provider Psychiatry & Neurology Psychiatry
DX: F33.2 Major depressive disorder, recurrent severe without psychotic features (principal); F41.1 Generalized anxiety disorder; F41.0 Panic disorder [episodic paroxysmal anxiety]
CPT/HCPCS: S9480; 90853

== ENCOUNTER 2023-02-03 07:10 | Outpatient (RCR) | payer MEDICARE, OTHER, SELFPAY ==
--- NOTE | 2023-02-03 09:00 | BH.SGPN.GN ---
Behaviors/Verbalizations/Mental Status: [] Pt alert and oriented, neatly dressed and groomed. Eye contact good. Motor activity appropriate. Speech within normal limits-rapid. Affect congruent, mood euthymic. Thoughts linear, logical, no signs of hallucinations or delusions. Reviewed pt?s symptom tracker, no risk for suicidal ideation, plan, or intent 02/03/23 Client Response/Progress/Benefit: []Pt responded well to session, providing supportive statements to peers. Per pt's daily symptom tracker, pt's anxiety and depression have decreased from earlier this week. Pt reports her mood today is hopeful and pt stated she is really enjoying IOP. Pt shared she wants to continue to work on her anger, anxiety, and depression and she feels like IOP will help. Pt's wins today included setting a boundary last night and getting a medication change that was helpful. Pt appeared to benefit from connecting with peers and reflecting on her application of skills. Pt will continue IOP tx to prevent decompensation, improve daily functioning, and gain healthy coping skills. Narrative Note: []
--- NOTE | 2023-02-03 10:10 | BH.SGPN.GN ---
Behaviors/Verbalizations/Mental Status: [] Eye contact is fair. Motor activity is appropriate. Appearance is casual. Speech is Appropriate. Mood is euthymic. Affect is congruent. Thoughts are linear and logical. No evidence of psychosis. Client Response/Progress/Benefit: [] Client connected with topic of Anxiety and participated throughout, providing input and taking notes. Attentive during psychoeducation on different anxiety disorders and participated throughout interactive discussion defining anxiety and identifying cognitive and physiological symptoms of anxiety. Group discussed how anxiety can lead to missed opportunities in life. Common physical and cognitive symptoms identified by group included: ?what if thoughts?, ?fear of failure?, negative self-talk, feeling nauseous, shaky, and temperature change. Client identified seeking reassurance from the doctors and maintaining a super clean environment as their safety behaviors. Benefited from increased awareness and insight on anxiety and its impact. Plan is to continue in IOP to improve improve daily functioning, increase healthy coping skills, and prevent decompensation.
--- NOTE | 2023-02-03 11:10 | BH.SGPN.GN ---
Behaviors/Verbalizations/Mental Status: []Client alert and oriented, casually dressed and groomed. Eye contact good. Motor activity appropriate. Speech within normal limits. Affect congruent, mood euthymic and anxious. Thoughts linear, logical, no signs of hallucinations or delusions. Client Response/Progress/Benefit: []Client was an active participant AEB pt providing input and listening attentively to peers. Attentive during psychoeducation on mindfulness coping skills and their impact on reducing anxiety and improving overall mental health wellness. Group was able to identify self-soothing and mind-based coping skills which included: 5-senses, meditation, deep breathing, journaling, and body scan. Client would like to work on calming skill of guided imagery and deep breathing. Appeared to benefit from increasing repertoire of anxiety reduction skills. Client will continue in IOP tx to improve mood stability, further reduce depression, and promote healthy skill application. Narrative Note: []
--- NOTE | 2023-02-03 14:09 | BH.MDN ---
Multi-Disciplinary Note Note 30-min Individual: Time Started:: 12:00 Date: 02/03/23 Purpose of session/treatment goals addressed:: To gather information on pt's current stressors, symptoms, triggers, and tx goals. Another goal was to build rapport and provide emotional support. Eye Contact:: Good Motor Activity:: Appropriate Appearance:: Neat Speech:: Appropriate Mood:: Euthymic and Anxious Affect:: Full Thoughts:: Racing and Circular Staff Interventions:: rapport building, strengths perspective, treatment planning and goal setting Client Response:: Pt responded well to session, open to meeting with therapist. Pt reports feeling better today than she did when she started IOP as pt feels the group environment and topics are beneficial. Pt stated the medication change has been helpful and pt is less groggy when she wakes up in the morning on a lower dose of Trazodone. Pt stated she is still anxious about coming to group, but now she is equally as interested. Pt shared for years she has been wearing a mask and others see her as a fun-loving person who is always happy, but pt stated she has struggled for a long time with anger and self-esteem. Pt reports she wants to learn how to not fix others so much and work on making me a priority. Pt also wants to become more hopeful and learn how to love herself. Pt shared she used to be involved in different classes to learn more skills, but pt has not done this since becoming depressed. Pt receptive to exploring ideas and activities that will bring pt murphy. Risks/Concerns:: Pt denies any thoughts of or SI. Progress Toward Goals/Plan:: Pt's first week of IOP completed today. Pt reports benefitting from the connection with peers and her recent medication change. Pt reports her anxiety is ongoing, but she has not had a panic attack over the last few days. Pt's mood is still depressed and she reports ruminations and negative thoughts of self. Pt wants to work on improving her daily functioning, becoming more hopeful, self-care, and self-compassion. Pt will continue IOP tx to prevent decompensation, gain healthy coping skills, and increase social support. Time Stopped:: 12:30
--- NOTE | 2023-02-07 09:05 | BH.SGPN.GN ---
Behaviors/Verbalizations/Mental Status: [] Eye contact is good. Motor activity is appropriate. Appearance is casual. Speech is Appropriate. Mood is anxious. Affect is congruent. Thoughts are linear and logical. No evidence of psychosis. Reviewed daily check in sheet and no reports of suicidal ideations or intent. Client Response/Progress/Benefit: [] Pt was an active participant in group discussion. Attentive. Emotion for today is hopeful . Daily symptom tracker notes 3/5 fof depression and 2/5 for anxiety. Talked at length regarding numerous greif triggers over the weekend. Her brother was in town and he dropped off several items belonging to her recently brother. Going through the items viji back several memories both good and bad. She cotninues to struggle with his passing and blames herself. Having these items in the house appear to be grief triggers which can be exhausting . Group provided feedback and suggestions on how to manage grief triggers as well as normalizing selling, giving away, or throwing away certain items. Benefited from group support, encouragement, and feedback. Will continue in IOP to prevent decompensation, decrease anxiety, increase healthy coping, and improve functioning. Narrative Note: []
--- NOTE | 2023-02-07 10:10 | BH.SGPN.GN ---
Behaviors/Verbalizations/Mental Status: [] Eye contact is good. Motor activity is appropriate. Appearance is casual. Speech is Appropriate. Mood is euthymic and anxious. Affect is congruent. Thoughts are linear and logical. No evidence of psychosis. Client Response/Progress/Benefit: [] Pt was an active participant during group discussions and group activities; however, at times appeared distracted by own thoughts and others. Needed some redirection but mostly attentive during psychoeducation. Engaged during activity in which they identified which type of foods (i.e. carbs, sugar, salt, fast food, caffeine, etc) they seek out when sad, tired, angry, rushed, anxious, etc. Pt was able to identify the impact that certain foods have on their mental health through group example which was beneficial. Identified how she turns to foods that are high is sugar when bored which long-term reinforces anxiety. Benefited from increased awareness of the connection between nutrition and mental health. Will continue in IOP to prevent decompensation, increase healthy coping, and continue to improve anxiety management. Narrative Note: []
--- NOTE | 2023-02-07 11:10 | BH.SGPN.GN ---
Behaviors/Verbalizations/Mental Status: []Pt alert and oriented, neatly dressed and groomed. Eye contact good. Motor activity appropriate. Speech within normal limits. Affect congruent, mood euthymic. Thoughts linear, logical, no signs of hallucinations or delusions. Client Response/Progress/Benefit: [] Pt was an active participant throughout AEB contributing to group discussion and taking notes. Pt provided input during small group discussion on strategies to combat each factor maintaining adverse nutritional cycles. Worked with group to identify ways to foster more mindful nutritional choices. Each group participant identified one small step they could take today to begin establishing mental wellness promoting nutritional choices. Pt shared plans to?start reading more food labels and reflecting on her grocery shopping list. Appeared to benefit from gaining insight into mental wellness centered nutrition and identifying personal steps Pt can take to support own nutritional psychology. Recommended continued IOP tx to promote self-compassion, increase self-care, and combat distortions. ? Narrative Note: []
--- NOTE | 2023-02-08 09:30 | BH.NA_ITS ---
Physical Data Vital Signs Pulse Rate: 75 Blood Pressure: 144/88 Height/Weight Height: 1.68 m Weight:: 71.214 kg Weight in Pounds: 157.0 lbs Current Medication Compliance Medication Compliance Do you take your medication as prescribed?: Yes Nutritional History Appetite Nutritional Instructions: Describe your appetite:: Good Additional nutritional information:: Client states her appetite is increasing. Client states she has been drinking Ensure daily for protein. Functional Assessment Sleep Pattern Describe any problems with sleeping: Client states since starting Trazodone and now adding Seroquel, she is sleeping about 8-9 hours per night. Sensory/Communication Assess Vision Problems Do you have any vision problems?: Glasses Communication Problems Do you have difficulty understanding what people are saying?: No Medical Problems/History Cardiac Conditions Cardiovascular: Hypertension Hematologic Conditions Hematologic: Other (See comments) (history of leukopenia after COVID) Metabolic Conditions Metabolic: Hypothyroidism Musculoskeletal Conditions Musculoskeletal: Arthritis (foot, back) Pain Assessment Do you have acute or chronic pain?: Yes (OA- back and foot) Family History Family History Mother Hypertension Father Hypertension Depression CVA (cerebral vascular accident) Bladder cancer Surgical History Surgical History Have you had any surgeries? If so, list type and date:: Yes (hyster, T&A, varicose veins, left shoulder, trigger finger) Substance Abuse Substance Abuse Please describe substance abuse in the last 30 days:: Client states she rarely drinks alcohol, maybe 1 shot of bourbon per month. Client denies tobacco or substance use ever. Client states she drinks 1 cup of coffee per day. Mental Status Summary Mental Status Significant Findings/Observations on Appearance and Mood:: Client is alert and oriented x 4. Client is casually groomed with good hygiene. Client is cooperative with assessment. Client makes good eye contact. Client's voice has normal rate and volume. Client makes logical associations and has normal processing. Client denies delusions/hallucinations. Client denies SI. Suicide Assessment Suicidal Ideation Are you currently or have you been suicidal in the past?: No Suicidal Intentional Rating Scale (SIRS): No suicidal thoughts (past or present) Physician Notification Past Psychiatric History MH Treatment Hx Past Psychiatric Medications:: recently weaned off Amitriptyline, Paxil, Valium Age of first mental health symptoms: Client states she first had depression symptoms as a teenager and was first on medication for her mental health around age 23. Describe (age, circumstance, etc) any past hospitalizations: 1996 at [facility] Current providers for mental health treatment (counselor, psychiatrist, comp field case manager, etc.): None. Fall Risk Assessment Age Age: 71 or older Mental Status Mental Status: Willing & able to ask for assistance when needed Physical Status Physical Status: No problems Impairments Impairments: None Elimination Elimination: Continent AND independent Gait or Balance Gait or Balance: Walks independently Hx of Falls History of falls in the past 6 months: No known history Medications/Substances Psychotropics:: Antidepressants and Antipsychotics Others:: Antihypertensives Medications/substances used within the past 24 hours or ordered to administer: 3 or more of the medications/substances listed above Total Score Total Points:: 4 RN Summary of Impressions Impressions Recommendations Impressions: Psychiatric Issues: 1. Major depressive disorder, recurrent, severe without psychosis 2. Generalized anxiety disorder 3. Bereavement 4. Panic disorder Level of Care How do the client's current symptoms and functional deficits support need for this level of care?: Client was referred to IOP by a friend after she started having panic attacks and high anxiety after the of her brother. Client's brother in October 2022 from pancreatic cancer. Client states in early January, she started waking up with panic attacks in the morning, and was having about 2 panic attacks per day. Client states she had high health anxiety then, afraid she had pancreatic cancer too. Client states her PCP did tests and she does not have any physical health problems at this time. Client states in the last week, she has not had a panic attack. Client does report she had been having some nausea, but states her appetite is improving now and nausea is diminished. Client states she has been isolating, and states she wants to start doing the activities she used to again, like swimming. IOP will promote gains and prevent further decompensation while providing social support and skills training.
[2023-02-08 10:02] VITALS: BP 144/88; PULSE 75
--- NOTE | 2023-02-08 10:10 | BH.SGPN.GN ---
Behaviors/Verbalizations/Mental Status: [] Eye contact is good. Motor activity is appropriate. Appearance is casual. Speech is Appropriate. Mood is anxious. Affect is congruent. Thoughts are linear and logical. No evidence of psychosis. Client Response/Progress/Benefit: [] Pt was an active participant in group discussion. Attentive. Participated during interactive discussion on what is meant by Taking Action and what is holding them back from taking action on their mental health. Participated with peers during small group discussions on the impact of negative thoughts, depression, anxiety, guilt, low self-esteem, and anger on an individual's functioning. Areas that patient wished to gain more control over include; fear of losing my mind, people pleasing, and anger . Believes that if they can gain more control over those areas of their life they will be able to live more in the moment . Benefited from increased awareness of obstacles to mental wellness. Will continue in IOP to prevent decompensation, decrease anxiety, increase healthy coping, and improve functioning. Narrative Note: []
--- NOTE | 2023-02-08 11:10 | BH.SGPN.GN ---
Behaviors/Verbalizations/Mental Status: []Pt alert and oriented, casually dressed and groomed. Eye contact good. Motor activity appropriate. Speech within normal limits. Affect congruent, mood euthymic. Thoughts linear, logical, no signs of hallucinations or delusions. Client Response/Progress/Benefit: [] Pt responded well to session, taking notes and participating in worksheet discussion. Pt connected with the zones of action/change and that making sustainable change comes from stepping out of one?s comfort zone into the learning zone. Pt set a goal to gain control over their difficulty regulating anger. Pt will do this by not watching the news on the TV for one week. Pt identified support they might need as finding a substitute show and reaching out to supports. Appeared to benefit from identifying a small goal to benefit mental health. Will continue IOP tx to promote use of healthy coping skills and improve daily functioning. Narrative Note: []
--- NOTE | 2023-02-09 08:41 | BH.MDN ---
Multi-Disciplinary Note Note 30-min Individual: Time Started:: 09:00 Date: 02/08/23 Purpose of session/treatment goals addressed:: To work on identifying worries and developing strategies to help manage anxiety. Another goal was to discuss communicating boundaries. Eye Contact:: Good Motor Activity:: Restless Appearance:: Neat Speech:: Appropriate and Rambling Mood:: Euthymic and Anxious Affect:: Full Thoughts:: Racing and No evidence of hallucinations/delusions noted Staff Interventions:: thought challenging, CBT techniques, mindfulness skills, strengths perspective and goal setting Client Response:: Pt responded well to session, open to meeting with therapist. Pt reports feeling better this week since getting her medication changed and having a consistent social routine. Pt reports benefitting from the group topics and perspectives of others. Pt shared she is applying what she learned in boundary setting group and had a conversation with her daughter about boundaries in their relationship. Pt is anxious about another boundary she needs to set with her best friend of 70 plus years. Pt shared all she does is talk about the past and her family's problems. Pt shared she thinks her friend will be receptive because she has had to set boundaries before. Pt stated she wants to work on removing the chains in my life while in IOP. Pt feels that she carries other people's problems with her and that she has for most of her life. Pt expressed last week that she wants to focus on improving her self-care and putting her needs as a priority. Pt is going to start back with swimming this week which is something she has been avoiding due to anxiety. Pt is excited to start doing this again now that she knows how much avoidance worsens her anxiety. Risks/Concerns:: Pt denies any thoughts of or suicidal ideations. Progress Toward Goals/Plan:: Pt progressing well in IOP tx. Pt reports benefitting from the group setting and learning from peers. Therapist did have to address some of pt's language in group such as fat as it could trigger others. Pt receptive to this and understands to be mindful of peers. Pt reports her anxiety is decreasing, but she is still worrying frequently. Pt feels she is benefitting from the medication changes and socializing again. Pt reports her depression is reducing due to getting support and she is setting more boundaries which is helpful. Pt still endorses racing thoughts, ruminations, and a depressed mood. Pt will continue IOP tx to prevent decompensation, increase mood stability, and improve daily functioning. Time Stopped:: 09:35
--- NOTE | 2023-02-14 09:05 | BH.SGPN.GN ---
Behaviors/Verbalizations/Mental Status: [] Eye contact is good. Motor activity is appropriate. Appearance is casual. Speech is Appropriate. Mood is anxious. Affect is congruent. Thoughts are linear and logical. No evidence of psychosis. Reviewed daily check in sheet and no reports of suicidal ideations or intent. Client Response/Progress/Benefit: [] Pt was an active participant in group discussion. Attentive. Daily symptom tracker notes 4/5 for irritability and 3/5 for depression. Shared that her has notices that I'm doing better as far as leaving the house . Decreased anxiety and increased engagement outside of the house. Decreased isolation and avoidance, however pt states I still cry every morning . Depression,grief, and anxiety continue to impact functioning. She discussed increased insight and insight that she is taking on others peoples problems as well as her own. I just want to fix everyone but I can't fix myself . In the early stages of awareness and boundary-setting for herself which she reports is challenging. Progress noted per self report. Benefited from group support, encouragement, and feedback. Will continue in IOP to prevent decompensation, increase healthy coping, and to improve functioing. Narrative Note: []
--- NOTE | 2023-02-14 10:15 | BH.SGPN.GN ---
Behaviors/Verbalizations/Mental Status: []Pt alert and oriented, neatly dressed and groomed. Eye contact good. Motor activity appropriate. Speech within normal limits. Affect congruent, mood euthymic. Thoughts linear, logical, no signs of hallucinations or delusions. Client Response/Progress/Benefit: [] Pt engaged in group session AEB listening to others, taking notes throughout, and chose to take an active role in the activity. Group attentive during psychoeducation about emotion regulation and dysregulation. Pt shared she used to lash out a lot more and this would hurt pt?s relationships and cause pt to ruminate. Appeared to connect with scenarios reviewed in group on emotion regulation vs dysregulation. Pt benefited from session by gaining an increased understanding on the importance of managing emotions. Pt to continue IOP to promote mood stability, improve daily functioning, and further increase self-compassion. Narrative Note: []
--- NOTE | 2023-02-14 11:15 | BH.SGPN.GN ---
Behaviors/Verbalizations/Mental Status: []Pt alert and oriented, casually dressed and groomed. Eye contact good.. Motor activity appropriate. Speech within normal limits. Affect congruent, mood euthymic. Thoughts linear, logical, no signs of hallucinations or delusions. Client Response/Progress/Benefit: [] Pt active participant in session AEB Pt listening attentively to peers and providing input. Attentive during psychoeducation on 4 zones of regulation. Pt able to identify feelings and behaviors for each zone. Pt identified coping skills one can use to support self in each zone. Identified one skill from each zone she can practice which included: create a crisis plan, celebrate wins, share wins with others, and make lists. Benefited from increased education on zones of regulation or stages of alertness for emotions and healthy coping skills to use for each zone. Will continue IOP tx to reinforce healthy coping skills, challenge negative/distorted thoughts, and prevent decompensation.
--- NOTE | 2023-02-15 10:15 | BH.SGPN.GN ---
Behaviors/Verbalizations/Mental Status: []Pt alert and oriented, neatly dressed and groomed. Eye contact good. Motor activity appropriate. Speech tangential and rambling at times. Affect congruent, mood euthymic. Thoughts linear, logical, no signs of hallucinations or delusions. Client Response/Progress/Benefit: [] Pt was an active participant in group discussions and experiential activity. Participated during interactive discussion in which group worked together to define resilience (i.e. continuing to bounce back from hardship; willingness to keep trying) and what makes being resilient hard. Participated during interactive discussion on if resilience is something we are born with or can learn. Pt shared learning how to ask for help increases resilient. Able to relate the experiential activity back to topic of resilience. Worked well in small groups to identify strategies to build resilience. Benefited from increased awareness of the role of resilience in mental health and ways to build resilience. Will continue IOP tx to promote mood stability, further improve daily functioning, and reduce isolation. Narrative Note: []
--- NOTE | 2023-02-15 13:56 | BH.MDN_ITS ---
Multi-Disciplinary Note Note 30-min Individual: Time Started:: 09:20 Date: 02/15/23 Purpose of session/treatment goals addressed:: To work on goal #2 of pt's tx plan and set new goals for the week. Eye Contact:: Good Motor Activity:: Restless Appearance:: Neat Speech:: Rambling Mood:: Euthymic Affect:: Full Thoughts:: Linear, Logical and No evidence of hallucinations/delusions noted Staff Interventions:: thought challenging, psychoeducation on: (anger), CBT techniques, mindfulness skills and strengths perspective Client Response:: Pt responded well to session, open to meeting with therapist. Pt reports she is continuing to feel better and having less panic. Pt went back to her swimming exercise class last week and shared it went very well. Pt was glad to be around friends again after avoiding and isolating due to her depression and anxiety. Pt stated she is also allowing herself to take breaks throughout the day instead of just pushing through like she usually does. Pt reports many benefits from IOP group and shared it makes her feel inspired that people from all different walks of life get help. Pt shared her biggest problem right now is she still has a lot of anger and pt wants to manage this better. Discussed anger as a secondary emotion and the potential things that could fueling anger. Pt connected with grief, disappointment, guilt, and sadness as emotions that fuel pt's anger. Pt talked about how her upbringing also fueled a lot of her anger because she grew up during a time when I couldn't ever please my mother and my dad didn't want me to get an education. Pt shared that she is grateful for her now and how supportive he is of her mental health and love of learning. Pt set a goal for the next week to try a new buddhism. Pt is having a lot of cognitive dissonance with her current buddhism, but likes the social component of amberly. Pt will also continue to go to swimming twice a week. Risks/Concerns:: No SI or thoughts of noted. Progress Toward Goals/Plan:: Pt continues to make progress towards tx goals AEB pt's self-report of reduced isolation and improving insight to healthy boundaries. Pt also reports her sleep has improved since starting her new medication and she is having less panic attacks. Pt is still having crying spells and anger. Pt wants to work on becoming more assertive in her self-care and boundary needs. Pt also wants to explore new interests and reduce anger. Pt will need an outpatient therapist prior to IOP discharge. Pt will continue IOP tx to promote mood stability, increase emotional regulation skills, and improve daily functioning. Time Stopped:: 09:55
--- NOTE | 2023-02-21 09:26 | BH.MDN_ITS ---
Multi-Disciplinary Note Note 30-min Individual: Time Started:: 09:00 Date: 02/21/23 Purpose of session/treatment goals addressed:: To work on goal #2 of pt's tx plan by addressing anger and behavioral activation skills. Eye Contact:: Good Motor Activity:: Appropriate Appearance:: Neat Speech:: Appropriate Mood:: Euthymic Affect:: Full Thoughts:: Linear, Logical and No evidence of hallucinations/delusions noted Staff Interventions:: thought challenging, CBT techniques, mindfulness sk ills, strengths perspective and goal setting Client Response:: Pt responded well to session, open to meeting with therapist. Pt reports she has been feeling better and functioning better since changing her medications and starting IOP. Pt reports she returned to [employer] this past week and it went well. Pt had originally planned to not return to [employer] because of her irritability and frustration with her peers. Pt shared that it went better than she expected and she felt welcomed back. Pt also set boundaries with some of her peers which pt feels will help create a less stressful environment moving forward. Pt stated she is looking forward to [place] which was not something pt could say a month ago. Pt feels that her anger is reducing, but there is still anger present. Pt is becoming more accepting of her brother's passing and the care he received nearing the end of his life. Pt stated she is using skills outside of IOP such as boundary setting and allowing herself to relax. Pt wants to continue working on reducing guilt and trying new things to promote mood stability. Discussed aftercare options for when pt gets closer to discharge as well as set a goal for the week to allow herself to be present and not do anymore preparations for [place]. Risks/Concerns:: Pt denies any thoughts of or SI. Progress Toward Goals/Plan:: Pt continues to make progress towards tx goals AEB pt's self-report of no panic attacks during the night anymore and improved mood. Pt shared she is looking forward to [facility] now and she feels less angry. Pt reports benefitting from the group structure and coping skills she gains from the topics such as boundary setting. Pt continues to report some guilt, anger, and depressive symptoms, but these are resolving. Pt will continue IOP tx to promote mood stability, further reduce symptoms, and improve daily functioning. Time Stopped:: 09:25
--- NOTE | 2023-02-22 09:05 | BH.SGPN.GN ---
Behaviors/Verbalizations/Mental Status: [] Eye contact is good. Motor activity is appropriate. Appearance is casual. Speech is Appropriate. Mood is euthymic. Affect is full. Thoughts are linear and logical. No evidence of psychosis. Reviewed daily check in sheet and no reports of suicidal ideations or intent. Client Response/Progress/Benefit: [] Pt was an active participant in group discussions. Attentive. Daily symptom tracker notes 03/10 for anxiety and depression. Pt states I'm starting to feel more normal . Continues to see progress and beleives that her anxiety is decreasing. Able to be in public w/o extensive ruminations or intense urges to isolate. 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 Able to identify progress and believes she benefits from group support. Will continue in IOP to prevent decompensation, increase healthy coping skills, and improve functioning. Narrative Note: []
--- NOTE | 2023-02-22 10:10 | BH.SGPN.GN ---
Behaviors/Verbalizations/Mental Status: [] Eye contact is good. Motor activity is appropriate. Appearance is casual. Speech is Appropriate. Mood is euthymic. Affect is congruent. Thoughts are linear and logical. No evidence of psychosis. Client Response/Progress/Benefit: [] Pt active participant AEB pt providing input throughout group discussion. She did appear to listen to others comments. Pt attentive during psychoeducation about defense mechanisms. Showed increased engagement during small group discussions and helped group identify which defense mechanisms were maladaptive, adaptive, or both. Pt started to work with group on identifying how each defense mechanism can impact mental health. Seemed to benefit from gaining awareness about the different defense mechanisms. Pt to continue IOP to improve view of self, promote use of healthy coping skills, continued work on setting boundaries, and prevent decompensation.
--- NOTE | 2023-02-22 11:15 | BH.SGPN.GN ---
Behaviors/Verbalizations/Mental Status: []Pt alert and oriented, neatly dressed and groomed. Eye contact good. Motor activity appropriate. Speech within normal limits. Affect congruent, mood euthymic. Thoughts linear, logical, no signs of hallucinations or delusions. Client Response/Progress/Benefit: [] Pt responded well to session, participating in activity and small group discussion. Group reviewed the rest of the defense mechanisms and discussed how these are adaptive, maladaptive, or somewhere in the ames. . Pt participated in the experiential activity which encouraged pts to draw a castle that portrayed their different defense mechanisms. Pt's defense mechanisms included suppression, denial, and humor. Pt reports wanting to work on continuing to set boundaries, so she does not need to ?wear the mask? of humor when she does not feel happy. Appeared to benefit from gaining insight to the different defense mechanisms and learning coping skills. Pt will continue IOP tx to promote gains and reduce negative thinking patterns. Narrative Note: []
--- NOTE | 2023-02-22 14:49 | BH.TPR ---
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 Pt contributes well during individual sessions and she is engaged during group sessions. Pt applies coping skills outside of IOP and reports overall mood is improved and pt is avoiding and isolating much less. Status of Current Problems and Symptoms: Current stressors include worries about her health and getting dementia, maintaining boundaries and self-care, some mild depressive symptoms including problems with memory and aches and pains. Pt also needs an outpatient therapist. Progress Problem #1: Problem Name:: Anixety, panic attacks, and avoidance. Status of Goals:: Objective 1- complete with ongoing work encouraged. Pt reports learning that setting boundaries can reduce anxiety. Pt also reports gaining new skills such as deep breathing, mindfulness, and self-talk to reduce anxiety. Objective 2- complete with maintenance encouraged. Pt?s DSM-5 scores for anxiety have decreased by 100% since admission. Pt shared she is no longer waking up with panic attacks and she is able to leave the house consistently again. Team Recommendations:: Pt is encouraged to continue working on this goal as pt can further reduce anxiety and increase emotional regulation skills. Pt encouraged to continue working on boundary setting and scheduling self-care. Problem #2: Problem Name:: Depression, isolation, thoughts of , and anhedonia. Status of Goals:: Objective 1- complete with ongoing work encouraged. Pt reports using opposite action, goal setting, and challenging her perspective to help with depression and grief. Objective 2- complete with ongoing work encouraged. Pt?s DSM-5 scores for depression have decreased by 83% since admission. Pt is still reporting feeling down and depressed some days, but pt reports overall her mood is much improved. Team Recommendations:: Tx team recommends that pt continue working on these goals as pt can benefit from identifying and reframing distortions and utilizing healthy coping skills. Pt also recommended to continue to set weekly goals and to engage in old hobbies.
--- NOTE | 2023-02-23 09:05 | BH.SGPN.GN ---
Behaviors/Verbalizations/Mental Status: [] Pt alert and oriented, casually dressed and groomed. Eye contact good. Motor activity appropriate. Speech within normal limits. Affect congruent, mood dysthymic. Thoughts linear, logical, no signs of hallucinations or delusions. Reviewed pt?s symptom tracker, no risk for suicidal ideation, plan, or intent 02/23/23 Client Response/Progress/Benefit: []Pt responded well to session, participating in processing and providing supportive feedback. Pt reports feeling sad this morning sharing that this is going to be the first Thay[place] without her brother. Shared that although it is a stressor, she has been trying to focus on the positives and use affirmation statements each day. Pt reported a mental health win as taking a step back when getting upset about her daughter's house being messy. She reports reminding herself I don't need to do this. If she is happy with it then that's okay . Additional win noted as noticing her own progress and recognizing she is more easily getting out and going to social events without feeling anxious. Discussed opposite action as a major support in doing so. Pt appeared to benefit from self-reflection on areas of progress, as well as from group support. Pt will continue IOP tx to maintain mood stability, continue to provide support, and prevent decompensation. Narrative Note: []
--- NOTE | 2023-02-23 10:10 | BH.SGPN.GN ---
Behaviors/Verbalizations/Mental Status: [] Eye contact is good. Motor activity is appropriate. Appearance is casual. Speech is Appropriate. Mood is euthymic. Affect is congruent. Thoughts are linear and logical. No evidence of psychosis. Client Response/Progress/Benefit: []Pt engaged participant AEB listening to others, engaging in activity, and providing feedback at times. Attentive during psychoeducation and provided insight into obstacles in the way of mental wellness. Pt shared with group current mental health reality and desired mental health reality. Stated setting boundaries as step she is currently making to get closer to desired reality. Identified barriers to desired reality include: Depression, pride, mandaeism expectations, expectations from others, and expectations for herself. Benefited from taking look at current mental health state and obstacles for progress. Pt to continue IOP to continue utilization of healthy coping skills, continue to build confidence, and prevent decompensation.
--- NOTE | 2023-02-23 11:10 | BH.SGPN.GN ---
Behaviors/Verbalizations/Mental Status: []Pt alert and oriented, casually dressed and groomed. Eye contact good. Motor activity appropriate. Speech within normal limits. Affect congruent, mood anxious, euthymic. Thoughts linear, logical, no signs of hallucinations or delusions. Client Response/Progress/Benefit: []Pt an active participant, encouraging peers and contributed as group brainstormed ideas on how to cope with internal barriers that keep Pt's stuck from moving towards goals. Worked with group to identify strategies to help overcome barriers. Identified personal barriers to desired reality. Pt wants to work on overcoming the barrier of fear of change by using positive self-talk and continuing to remind herself that she deserves to set and maintain healthy boundaries. Benefited from group by identifying obstacles and solutions to desired reality.? Pt to continue IOP to promote healthy coping skill application, reduce the use of distortions, and improve self-compassion. Narrative Note: []
--- NOTE | 2023-03-02 09:05 | BH.SGPN.GN ---
Behaviors/Verbalizations/Mental Status: [] Eye contact is good. Motor activity is appropriate. Appearance is casual. Speech is Appropriate. Mood is euthymic. Affect is full. Thoughts are linear and logical. No evidence of psychosis. Reviewed daily check in sheet and no reports of suicidal ideations or intent. Client Response/Progress/Benefit: [] Pt was an active participant in group discussion. Attentive. Emotion for today is tired . Shared with the group several mental health wins over the holiday weekend. Participated in choir at [employer]. Continues to be anxious however noted improvement as her anxiety is not causing her to isolate at home and avoid social activities that she once enjoyed ([employer], choir). Overall continues to report progress in managing her anxiety, grief, and overall emotional distress. Reports that she is utilizing skills, challenging thoughts, reframing thoughts, and is working on perspective changes regarding herself, her role in other's lives, and her mental health. Progress noted per pt report. Benefited from group support, encouragement, and feedback. Will continue in IOP to prevent decompensation, increase healthy coping, and improve functioning. Narrative Note: []
--- NOTE | 2023-03-02 10:10 | BH.SGPN.GN ---
Behaviors/Verbalizations/Mental Status: []Pt alert and oriented, casually dressed and groomed. Eye contact good. Motor activity appropriate. Speech within normal limits. Affect congruent, mood euthymic. Thoughts linear, logical, no signs of hallucinations or delusions. Client Response/Progress/Benefit: []Pt receptive of session, actively engaged throughout AEB taking notes, providing input, and listening to discussion. Appeared to connect with group topic of cognitive distortions and the impact of thought patterns on mental health, coping behaviors, and relationships. Pt connected most with distortions of disqualifying the positives, shoulds and musts, and all or nothing thinking. Pt able to connect how these distortions impact functioning. Pt appeared to benefit from gaining insight on distorted thinking patterns and how this impacts overall mental health. Will continue IOP tx to reinforce healthy coping, build confidence, and prevent decompensation.
--- NOTE | 2023-03-02 11:15 | BH.SGPN.GN ---
Behaviors/Verbalizations/Mental Status: [] Eye contact is good. Motor activity is within normal limits. Appearance is casual. Speech is Appropriate. Mood is euthymic. Affect is congruent. Thoughts are linear and logical. No evidence of psychosis. Client Response/Progress/Benefit: [] Pt was an active participant during group discussions and activity. Pt was placed in a smaller group and participated in quiz-show format in which small groups competed against each-other to answer questions based on identifying, challenging, and reframing cognitive distortions. Pt was engaged in the smaller group, participated in group interactions to brainstorm answers, and appeared to be comprehending cognitive distortions. Stated learning that ?I struggle with minimizing and allowing others to take advantage of my boundaries?. Benefited from gaining further insight and awareness of cognitive distortions as well as practicing ways to reframe and challenge thoughts. Will continue in IOP to promote use of boundary setting skills, stabilize mood, and improve communication with supports. Narrative Note: []
--- NOTE | 2023-03-02 15:20 | BH.MDN ---
Multi-Disciplinary Note Note 30-min Individual: Time Started:: 12:10 Date: 03/02/23 Purpose of session/treatment goals addressed:: to review progress, discuss aftercare, and identify goals for the week. Eye Contact:: Good Motor Activity:: Appropriate Appearance:: Neat Speech:: Appropriate Mood:: Euthymic Affect:: Full Thoughts:: Linear, Logical and No evidence of hallucinations/delusions noted Staff Interventions:: thought challenging, discharge planning, strengths perspective, reviewed DSM-5 and goal setting Client Response:: Pt responded well to session, open to meeting with therapist. Pt reports feeling so much better than when she started IOP. Pt's sleep has improved, pt no longer has panic attacks, and pt reports a significant reduction of anger. Pt stated she had a good holiday with her family and pt felt that she was able to maintain boundaries with her daughter. Pt also went to [employer] and sang in the choir which was a good experience. Pt has been going to swimming consistently and she would like to get back into trying art classes. Pt shared she still feels weird and anxious around other people, but it is improving. Pt stated that she has noticed she can think about her brother and their positive memories without getting angry or sad. Pt feels that she is benefitting from the group sessions the most because it has helped pt gain more perspectives and skills. Pt's goal for the week is to allow herself to rest after a busy holiday weekend. Risks/Concerns:: No SI or thoughts of noted. Progress Toward Goals/Plan:: Pt continues to demonstrate progress towards her tx goals AEB pt's 93% reduction of DSM-5 scores since admission. Pt reports her mindset is so much better and pt also notices positive changes in her physical health. Pt needs outpatient counseling and today therapist called Dr. Manning at [facility] and left a message. Pt is still reporting symptoms of depression, issues with memory, and some issues with pain. Pt will continue IOP tx to promote gains, establish aftercare, and improve self-compassion. Time Stopped:: 12:30
== END 2023-03-05 23:59 ==
LOC: BHIOP 07:10
PROVIDERS: PCP Family Medicine; Referring Provider Psychiatry & Neurology Psychiatry; Visit Provider Psychiatry & Neurology Psychiatry
DX: F33.2 Major depressive disorder, recurrent severe without psychotic features (principal); F41.1 Generalized anxiety disorder; F41.0 Panic disorder [episodic paroxysmal anxiety]; Z79.899 Other long term (current) drug therapy
CPT/HCPCS: S9480; 90832; 90853

== ENCOUNTER 2023-03-07 07:25 | Outpatient (RCR) | payer MEDICARE, OTHER, SELFPAY ==
[2023-03-06 00:39] VITALS: BP 144/88; PULSE 75
--- NOTE | 2023-03-07 09:02 | BH.SGPN.GN ---
Behaviors/Verbalizations/Mental Status: [] Pt alert and oriented, casually dressed and groomed. Eye contact good. Motor activity appropriate. Speech within normal limits. Affect congruent, mood content. Thoughts linear, logical, no signs of hallucinations or delusions. Reviewed pt?s symptom tracker, no risk for suicidal ideation, plan, or intent 03/07/23 Client Response/Progress/Benefit: []Pt responded well to session, participating in processing with group and providing supportive feedback throughout. Pt reports feeling hopeful this morning. Pt did well to identify current mental health wins which included setting boundaries during holiday get togethers to prevent panic and reduce feeling pressured to engage in alcohol consumption when she did not want to . Shared that her supports were very receptive of this. Additional win noted as pt practicing self-restraint to allow her brother to look through her IOP binder on his own, without pt pressuring him to discuss his own mental health. Shared hope that letting him do so will begin to encourage him to address his own mental health needs. Shared that continued difficulties with establishing and maintaining healthy boundaries remains her primary stressor, but she feels she is making significant strides in this area. Pt appeared to benefit from practicing a self-reflection technique and from group support. Pt will continue IOP tx to promote mood stability, increase communication and healthy boundary setting skills, and prevent decompensation. Narrative Note: []
--- NOTE | 2023-03-07 10:10 | BH.SGPN.GN ---
Behaviors/Verbalizations/Mental Status: []Pt alert and oriented, casually dressed and groomed. Eye contact good. Motor activity appropriate. Speech within normal limits. Affect congruent, mood euthymic and positive. Thoughts linear, logical, no signs of hallucinations or delusions. Client Response/Progress/Benefit: []Pt was an active participant in activity and taking notes during group discussion. Attentive during psychoeducation on coping skills, why people use unhealthy coping skills, and how to replace unhealthy coping skills. Group came up with list of negative coping skills including not asking for help, avoidance, isolating, and sleeping. Group discussed the effects of how negative coping skills can impact mental health in a negative way. Benefited from increased understanding of unhealthy coping skills and the need for developing healthy internal and external coping skills. Pt will continue IOP tx to continue use of healthy coping skills and prevent decompensation.
--- NOTE | 2023-03-07 11:10 | BH.SGPN.GN ---
Behaviors/Verbalizations/Mental Status: []Pt alert and oriented, casually dressed and groomed. Eye contact good. Motor activity appropriate. Speech within normal limits. Affect congruent, mood euthymic and positive. Thoughts linear, logical, no signs of hallucinations or delusions Client Response/Progress/Benefit: []Pt responded well to session, taking notes and contributing. Group discussed the different categories of coping skills which included distraction, emotional release, grounding, self-love, and thought challenging.? Pt participated in creating a coping skills ?menu? from the five categories of coping skills. Pt's coping skill menu included: reading, exercise, belly breathing, nurture self, and call a friend. Appeared to benefit from increasing repertoire of healthy coping skills. Will continue IOP tx to promote use of skills and prevent decompensation.
--- NOTE | 2023-03-08 11:40 | PCM.BH.PN ---
Progress Note Progress Note: History of Present Illness/Interim History: The patient is an 82-year-old female with a history of depression and anxiety who is seen in follow-up at the [facility] behavioral health IOP. I last saw the patient about 1 month ago and at that time we lowered her trazodone and added Seroquel at bedtime to help treat anxiety. According to the staff the patient has been engaged in the IOP and has been making good progress. The patient states that she feels she is much better than when she started the program. Her anxiety is vastly improved and she has had no panic attacks since 1 week after starting the Seroquel when she was having them 2 times a day before. She is better able to function and has gone back to swimming a few times a week and has gone back to [employer] and is enjoying it. Her mood is much less depressed also. She is no longer waking up feeling anxious and nauseated. She denies passive thoughts of , suicidal ideation, plan for suicide, homicidal ideation, hallucinations or delusions. Current Psychiatric Medications: [] Seroquel 12.5 mg p.o. nightly (x 1 month); Celexa 40 mg p.o. daily; trazodone 100 mg p.o. nightly. Mental Status Examination: [] The patient is an 82-year-old female who appears normal for stated age and is casually dressed and groomed with good hygiene. She has no psychomotor agitation or retardation and is ambulatory with a normal gait. Eye contact is good and speech is normal rate and rhythm and fluent with no pressure. Mood is minimally depressed and approaching euthymia. Affect is full and normal. Thought process is goal-directed and organized. Thought content: The patient is hopeful for the future. There is no evidence of passive thoughts of , suicidal ideation, plan for suicide, homicidal ideation, hallucinations or delusions. Reality testing is intact. Intelligence is above average. Judgment is intact. Insight is good. Impulsivity is low. Diagnoses: [] 1. Major depressive disorder, recurrent, severe without psychosis (resolving) 2. Generalized anxiety disorder 3. Panic disorder 4. Primary support issues Plan: [] The patient will continue the IOP in behavioral health at [facility] and [facility] as it seems to be greatly benefiting her. She felt safe during the interview and if it anytime she does not feel safe she will let us know or go to the emergency room. No medication changes were made today and the patient had refill sent in for Celexa, Seroquel and trazodone. She is encouraged to try decreasing her trazodone further to 50 mg at bedtime but may take 100 mg at bedtime if she feels she needs it. She states that she has been having occasional blurred vision since starting trazodone months ago. She is has an appointment with her primary care doctor and will discuss this with them as if it does not resolve as the trazodone is weaned I would recommend seeing an eye doctor. She will continue to follow-up with her outpatient medical and psychiatric providers and I will see the patient in follow-up while she is in the IOP.
--- NOTE | 2023-03-09 09:05 | BH.SGPN.GN ---
Behaviors/Verbalizations/Mental Status: [] Eye contact is good. Motor activity is appropriate. Appearance is casual. Speech is Appropriate. Mood is euthymic. Affect is full. Thoughts are linear and logical. No evidence of psychosis. Reviewed daily check in sheet and no reports of suicidal ideations or intent. Client Response/Progress/Benefit: [] Pt was an active participant in group discussion. Attentive. Daily symptom tracker notes minimal emotional distress today. States I'm getting good at stopping the terrible tapes in my head . Elaborates that she is referring to negative automatic thoughts, ruminations, guilt, cognitive distortions, and anxiety-provoking thinking. Believes that she is returning to baseline since starting the program. I'm able to have people over again . Shared that in the recent past her anxiety was so severe she would avoid, isolate, and decline social opportunities. Positive outlook today and is proud of her increased confidence in managing emotions. She recently booked a retreat for herself in the summer. Progress noted per pt report. Benefited from group support, encouragement, and feedback. Will continue in IOP to maintain gains, prevent decompensation, and improve functioning. Narrative Note: []
--- NOTE | 2023-03-09 10:15 | BH.SGPN.GN ---
Behaviors/Verbalizations/Mental Status: []Pt alert and oriented, casually dressed and groomed. Eye contact good. Motor activity appropriate. Speech within normal limits. Affect congruent, mood depressed. Thoughts linear, logical, no signs of hallucinations or delusions. Client Response/Progress/Benefit: []Pt an active participant throughout. Participated during interactive discussion on defining conflict (internal/external) and possible benefits to conflict. Attentive during psychoeducation on conflict styles and engaged during small group activity in which peers identified the benefits and consequences to each conflict style. Pt identified their primary conflict style as accommodating out of a perceived obligation to help others. Shared this impacts her self-care at times and she is working to be more collaborating. Benefited from increased awareness of the impact of conflict styles in mental health. Will continue in IOP to reinforce healthy coping skills, continue to improve anxiety management, and promote mood stability. Narrative Note: []
--- NOTE | 2023-03-09 11:15 | BH.SGPN.GN ---
Behaviors/Verbalizations/Mental Status: []Pt alert and oriented, neatly dressed and groomed. Eye contact good. Motor activity appropriate. Speech within normal limits. Affect congruent, mood euthymic. Thoughts linear, logical, no signs of hallucinations or delusions. Client Response/Progress/Benefit: []Pt was an active participant in group discussions and activity. Attentive during psychoeducation. Along with peers was able to reflect on what conflict resolution skills can be useful outside of IOP. Pt chose to continue to work on the conflict resolution skills of no stonewalling, discussing one topic at a time, and taking a time-out if things get too heated. Benefited from practicing and learning conflict resolution skills. Will continue in IOP to promote mood stability, establish aftercare, and increase self-compassion. Narrative Note: []
--- NOTE | 2023-03-09 15:21 | BH.MDN_ITS ---
Multi-Disciplinary Note Note 30-min Individual: Time Started:: 12:10 Date: 03/09/23 Purpose of session/treatment goals addressed:: To address current stressors and discuss strategies to help cope with these stressors. Another goal was to discuss discharge and aftercare. Eye Contact:: Good Motor Activity:: Appropriate Appearance:: Neat Speech:: Appropriate Mood:: Euthymic Affect:: Full Thoughts:: Linear, Logical and No evidence of hallucinations/delusions noted Staff Interventions:: thought challenging, CBT techniques, discharge planning and strengths perspective Client Response:: Pt responded well to session, open to meeting with therapist. Pt reflected on her time in IOP tx and pt shared that she is no longer experiencing severe anxiety or panic attacks. Pt is able to get a full night's sleep again, engage in groups and hobbies, and get out of the house consistently. Pt stated she is coping with her grief better now as well and pt no longer feels angry about her brother's . Pt shared overall she feels better and ready to discharge, but pt is somewhat anxious about going to [place] in a few weeks. Pt reported that they are having a memorial for her brother and pt is anxious about the grief she will feel. Pt stated that although she is anxious, she is also looking forward to being around family and celebrating her brother who was loved by so many. Pt receptive to participating in IOP aftercare to promote ongoing maintenance. Pt was given a worksheet on identifying a maintenance plan to prevent future pitfalls. Pt elected to complete this on her own. Risks/Concerns:: No risk factors noted or reported by pt. Progress Toward Goals/Plan:: Pt reports feeling much better than she did at intake and pt's functioning is back to pt's baseline. Pt reports readiness to discharge from IOP tx on 03/17/23. Pt has called [facility] and will plan to see Dr. Leonor Manning. Pt's appointment is still TBD. Pt will continue IOP tx for one more week to reinforce healthy coping skills, develop an aftercare plan, and promote gains. Time Stopped:: 12:30
--- NOTE | 2023-03-17 09:05 | BH.SGPN.GN ---
Behaviors/Verbalizations/Mental Status: [Patient was alert and oriented, appropriately dressed and groomed. Eye contact was good, motor activity normal, speech within normal limits. Affect congruent, mood content. Thoughts linear, logical, no signs of hallucinations or delusions. Reviewed Patients symptom tracker and the patient reports low in depressed mood, anxiety/panic attacks, and agitation/irritability/anger. Patient reported no symptoms in self-harm urges or thoughts/risk of suicide. ] Client Response/Progress/Benefit: [Patient was engaged and open to the discussion. Patient reported her mood to be ?hopeful?. Patients stressor was that she felt as if she ?failed? at her maintaining her anger yesterday and ?went off on a rampage? towards her . She stated she felt guilty for this and was upset with herself. Patients wins however was that she was able to come down and apologize and talk to her about her feelings. She stated she is very thankful for her and his ability to be calm and understanding. Patient also has been able to help talk to herself about emotions she will feel when they burry her brother in April which had been heavy on her mind. Patient was interactive and respectful with other group members about their mental wins and stressors. Patient benefited from the discussion by listening to feedback and giving input on her peer?s stressors and mental health wins. Patient will continue with IOP treatment to help develop healthy skills, promote mood stability, and improve distress tolerance. ] Narrative Note: []
--- NOTE | 2023-03-17 09:54 | BH.AFTERPLAN ---
Aftercare Plan Demographics Treatment End Date:: 03/17/23 Psychiatrist:: Vandana Wild Psychiatrist Office #:: [phone] [facility]/IOP Therapist:: Adelina Murray Therapist Phone #:: [phone] Medications Home Medications lutein 20 mg capsule 20 mg PO DAILY 07/04/16 amlodipine 5 mg tablet 5 mg PO DAILY 07/14/22 folic acid 1 mg tablet 1 mg PO DAILY 07/14/22 glucosamine 750 [id number] no1 644 mg-C 30 mg-liset 1 mg tablet (Osteo Bi-Flex Triple Strength) 1 tab PO DAILY 07/14/22 levothyroxine 137 mcg tablet 137 mcg PO DAILY 07/14/22 multivitamin 1 tab PO DAILY 07/14/22 omega 0-uhp-msb-fish oil 60 mg-90 mg-500 mg capsule (Fish Oil) 1 cap PO DAILY 07/14/22 citalopram 40 mg tablet (Celexa) 40 mg PO DAILY 30 days #30 tabs 03/08/23 quetiapine 25 mg tablet 12.5 mg (1/2 x 25 mg) PO QHS 30 days #15 tabs 03/08/23 trazodone 50 mg tablet 100 mg (2 x 50 mg) PO QHS PRN insomnia 30 days #60 tabs 03/08/23 azithromycin 250 mg tablet See Rx Instructions PO .COMPLEX #6 tabs 03/10/23 Plan Details Progress/Aftercare Plan Details:: Kimberly has responded well to treatment as evidenced by Kimberly consistently attending IOP sessions and her reduction of DSM-5 scores since admission. Kimberly was always attentive and receptive to learning during group and individual sessions. Kimberly actively applied coping skills outside of IOP and reports overall her mood is improved and she is functioning better than she was several months ago. Pat?s overall symptom reduction is 73% since admission with anger decreasing by 75%, depression decreasing by 67%, and anxiety decreasing by 73%. Kimberly has increased self-confidence in her ability to manage stressors, emotions, and her grief. Most importantly, Kimberly has gained self-compassion and understanding of her right to boundaries. Strategies for Success:: 1. Opposite action! Continue to break that cycle of anxiety, anger, and depression by not letting emotions be the only drivers of your bus. 2. Remember that thoughts are thoughts NOT facts! You have power in if you give thoughts the time of day or not. 3. self-care! You deserve to take time for you and you also deserve to face the not so fun self-care like setting boundaries 4. Self-compassion! You are human and you will make a mistake?BUT that doesn?t mean you are a failure or not good enough. Give yourself credit for all the wonderful things you do. 5. continue putting in effort to the people and coping skills that serve you 6. Practice positive self-talk and keep track of your wins. 7. Remember progress isn?t linear! You may have a setback or bump in the road, but that doesn?t mean you?ve lost all progress. 8. self-reflection and self-awareness. 10. Live in the gamez!! Appointments Appointments/Referrals to Other Services:: 1. Follow up with your PCP today 03/17/23 for medication management and physical health needs. 2. IOP aftercare starting on 03/22/23.
--- NOTE | 2023-03-17 09:55 | BH.DS ---
Discharge Summary Demographics Date of Admission:: 01/31/23 Discharge Date: 03/17/23 Presenting Problems at Admission:: Pt is an 82-year-old female with a long-standing history of depression and anxiety. Pt referred by a friend to [facility] tx due to pt's decompensation in mental health symptoms over the past few months. Pt reports trigger was her brother passing away in October of 2022. Pt shared my brain just cracked and pt became severely anxious with panic attacks. Pt reports two weeks ago her symptoms were the worst and pt had to get a scan done by her PCP because pt was convinced she had prostate cancer like my brother. Pt endorses a depressed mood with anhedonia, isolation, crying spells, anger, and guilt. Pt was having panic attacks every night, but Trazodone has helped with this. Pt still having panic attacks during the day and pt constantly worries. Pt's symptoms are impacting her overall functioning and quality of life. 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 Pt wants to follow up with [facility] aftercare group starting next 03/23/23. Treatment Progress During Treatment & Response: Pt has responded well to treatment as evidenced by Pt consistently attending IOP sessions and her reduction of DSM-5 scores since admission. Pt was always attentive and receptive to learning during group and individual sessions. Pt actively applied coping skills outside of IOP and reports overall her mood is improved and she is functioning better than she was several months ago. Pt?s overall symptom reduction is 73% since admission with anger decreasing by 75%, depression decreasing by 67%, and anxiety decreasing by 73%. Pt has increased self-confidence in her ability to manage stressors, emotions, and her grief. Most importantly, Pt has gained self-compassion and understanding of her right to boundaries. Issues Still to be Addressed:: Pt can continue to benefit from social connections, prioritizing self-care and boundaries, processing her grief, and utilizing healthy coping skills to help with anger management. Discharge Recommendations/Instructions:: Pt will follow up with her PCP for medication management and pt sees Dr. Waggoner today at 03/17/23. Pt elected to not participate in individual outpatient counseling as pt feels that IOP aftercare group will be sustainable enough for pt's mental health maintenance. Pt will start aftercare on 03/23/23. Discharge Handout
--- NOTE | 2023-03-17 10:10 | BH.SGPN.GN ---
Behaviors/Verbalizations/Mental Status: [] Eye contact is good. Motor activity is appropriate. Appearance is casual. Speech is Appropriate. Mood is euthymic. Affect is full. Thoughts are linear and logical. No evidence of psychosis. Client Response/Progress/Benefit: [] Patient was an active participant in group discussions. Attentive during psychoeducation on growth mindset. Participated during the activity. Interactive group discussion on growth mindset in which group verbalized their current fixed mindsets and how they affect their mental health. Patient shared common fixed mindset thoughts they have which included My friends will never understand my depression . Patient benefited from increased awareness of growth mindset and fixed thoughts and how fixed thoughts impact their mental health. Pt is scheduled to successfully discharge from [facility] today. Narrative Note: []
--- NOTE | 2023-03-17 11:15 | BH.SGPN.GN ---
Behaviors/Verbalizations/Mental Status: []Pt alert and oriented, casually dressed and groomed. Eye contact good. Motor activity appropriate. Speech within normal limits. Affect congruent, mood content. Thoughts linear, logical, no signs of hallucinations or delusions. Client Response/Progress/Benefit: [] Pt was an active participant during activity and discussion AEB providing some input, connecting with peers, as well as taking notes throughout. Pt did well to engage as group worked on identifying characteristics and benefits of adopting a growth mindset. Worked with fellow participants in reframing the example fixed thoughts into growth mindset thoughts. Pt worked on changing own fixed thought of No one will ever understand my depression to a more growth mindset thought of Even if the people in my life don't understand, that doesn't mean I can't get help and begin to feel better . Receptive of discussing benefits of growth mindset and brainstorming strategies for prompting growth-mindset. Pt appeared to benefit from working in small groups to challenge own thoughts and help peers. Pt will d/c from IOP today given progress and continue with outpatient providers to promote mood stability and prevent decompensation. Narrative Note: []
== END 2023-03-17 12:09 | disposition home or self-care (01) ==
LOC: BHIOP 07:25
PROVIDERS: PCP Family Medicine; Referring Provider Psychiatry & Neurology Psychiatry; Visit Provider Psychiatry & Neurology Psychiatry
DX: F33.2 Major depressive disorder, recurrent severe without psychotic features (principal); F41.1 Generalized anxiety disorder; F41.0 Panic disorder [episodic paroxysmal anxiety]; Z79.899 Other long term (current) drug therapy
CPT/HCPCS: S9480; 90832; 90853

== ENCOUNTER 2023-03-30 12:00 | Outpatient (RCR) | payer MEDICARE, OTHER, SELFPAY ==
--- NOTE | 2023-03-30 14:00 | BH.COMM ---
Communication Note Communication with Client Communication Note: Patient completed IOP and presents today to start relapse prevention group which meets once weekly (1.5 hours) for 8 weeks. Case discussed with Dr. Jolly with plan to admit with dx of F33.2
--- NOTE | 2023-03-30 16:55 | BH.MTP ---
Master Treatment Plan Patient Information Program Physician:: Dr. 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 Objectives Objective #1: Stated Objective: Client will continue to consistently apply healthy coping skills to maintain progress made in IOP tx. Interventions: Client will continue to consistently apply healthy coping skills to maintain progress made in IOP tx. Interventions: Through group therapy, client will review warning signs and triggers as well as healthy coping skills learned in IOP tx to successfully maintain gains while transitioning into outpatient therapy. Discharge Criteria: Client will have accomplished this goal when client's score on the DSM-5 cross-cutting measure has maintained or reduced over a 8 week period. Target Date: 05/25/23 Review Date: 04/27/23 Status: open Objective #2: Stated Objective: Client will learn and utilize 2-3 maintenance strategies to prevent decompensation from original IOP DSM-5 scores. Interventions: Through group therapy, client will be provided with education on healthy maintenance behaviors, relapse prevention techniques, and healthy coping strategies. Discharge Criteria: Client will have accomplished this goal when can report using at least 2 maintenance skills to prevent decompensation compared to original IOP DSM-5 scores Target Date: 05/25/23 Review Date: 04/27/23 Status: open
== END 2023-04-05 23:59 ==
LOC: BHOG 12:00
PROVIDERS: PCP Family Medicine; Referring Provider Psychiatry & Neurology Psychiatry; Visit Provider Psychiatry & Neurology Psychiatry
DX: F33.2 Major depressive disorder, recurrent severe without psychotic features (principal); F41.1 Generalized anxiety disorder; F41.0 Panic disorder [episodic paroxysmal anxiety]
CPT/HCPCS: 90853

== ENCOUNTER 2023-04-06 08:04 | Outpatient (RCR) | payer MEDICARE, OTHER, SELFPAY ==
--- NOTE | 2023-04-20 14:00 | BH.SGPN.GN ---
Behaviors/Verbalizations/Mental Status: []Client alert and oriented, casually dressed and groomed. Eye contact good. Motor activity appropriate. Speech within normal limits. Affect congruent, mood euthymic. Thoughts linear, logical, no signs of hallucinations or delusions. Client Response/Progress/Benefit: []Client responded well to session AEB engagement in discussions, listening to others, and completing activity. Client reported she had an okay time in [place] for the last two weeks to spread her brothers ashes. Client stated did have some negative moments with her mnxfzp-co-pxp. Client reported she was able to get some time outside and enjoy the sunshine. Client stated using breathing and walking skills to manage stressors. Client responded well to psychoeducation about self-reflection. In personal reflection client identified progress she has made since d/c from IOP is setting boundaries and focusing on her own needs. Seemed to benefit from support from peers. Client is to continue aftercare to reinforce healthy coping and maintain gains.
--- NOTE | 2023-04-27 16:04 | BH.MTP_ITS ---
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 Pt's attendance has not been consistent due to pt going to [place] to visit family, but when pt is present she is engaged. Pt self-reports consistent use of healthy coping skills. Status of Current Problems and Symptoms: Pt reports some mild symptoms of depression and anxiety, but not to the intensity that it was prior to starting IOP. Pt's psychosocial stressors of packing to prepare for pt and her to move into assisted living and some health issues have impacted pt's mental health. Progress Problem #1: Problem Name:: Pt will maintain or see a reduction in sx Status of Goals:: Obj 1 - complete with ongoing work encouraged. Pt did not complete the DSM-5, but she self-reports regulating her emotions well even on days she feels more anxious or depressed. Pt reports actively using healthy coping skills like opposite action, self-compassion, and positive affirmations. Obj 2 - complete with ongoing work encouraged. Pt had been reporting using opposite action, exercising, spending time with supports, and setting boundaries. Team Recommendations:: Recommended client continue IOP aftercare group in addition to consistent medication management in order to maintain gains. Pt also recommended to continue working on self-compassion and setting realistic goals.
== END 2023-05-04 23:59 ==
LOC: BHOG 08:04
PROVIDERS: PCP Family Medicine; Referring Provider Psychiatry & Neurology Psychiatry; Visit Provider Psychiatry & Neurology Psychiatry
DX: F33.2 Major depressive disorder, recurrent severe without psychotic features (principal); F41.1 Generalized anxiety disorder; F41.0 Panic disorder [episodic paroxysmal anxiety]
CPT/HCPCS: 90853

== ENCOUNTER 2023-05-05 07:01 | Outpatient (RCR) | payer MEDICARE, OTHER, SELFPAY ==
--- NOTE | 2023-05-18 14:00 | BH.SGPN.GN ---
Behaviors/Verbalizations/Mental Status: []Pt alert and oriented, casually dressed and groomed. Eye contact good. Motor activity appropriate. Speech within normal limits. Affect congruent, mood euthymic. Thoughts linear, logical, no signs of hallucinations or delusions. Client Response/Progress/Benefit: [] Pt receptive of session, engaged throughout. Pt shared she has not had a meeting with outpatient therapist this week but has been consistent with meds. Reports the coping skills used throughout the week included: advocating for her physical health needs, self-compassion, and thought challenging. Receptive of discussion on the three components of the Wellness [place] (social, mental health, and physical) and the importance of balancing each of these areas. Pt contributed to the discussion on the variables impacting each area of wellness including: biology, environment, attitude, behavior, technology, and social support network. Completed an assessment reviewing personal wellness in each pillar of the wellness triangle. Identified wanting to work on physical wellness by creating a consistent schedule for walking and swimming. Pt seemed to benefit from support from peers and increasing understanding of the relationship between different areas of wellness. Will remain in the aftercare program to maintain gain and prevent decompensation. Narrative Note: []
--- NOTE | 2023-05-25 14:00 | BH.SGPN.GN ---
Behaviors/Verbalizations/Mental Status: []Pt alert and oriented, neatly dressed and groomed. Eye contact good. Motor activity appropriate. Speech-tangential. Affect congruent, mood euthymic. Thoughts linear, logical, no signs of hallucinations or delusions. Client Response/Progress/Benefit: [] Pt receptive of session, engaged throughout. Pt shared she did not have a session this week with her therapist, but pt has been consistent with taking meds and using coping skills. These skills included ?having courage and going to the pool? which took opposite action and self-talk. Receptive of discussion on sitting with the uncomfortable and emotional urges. Pt contributed to the discussion of distress tolerance and how building distress tolerance can help improve mood stability and resilience. Pt looked at a recent situation that was distressing and wrote out low distress tolerance and high distress tolerance responses. Pt wants to work on not hanging up when she must wait on the phone. Pt seemed to benefit from support from peers and increasing understanding of distress tolerance. Will discharge from [facility] aftercare as pt has successfully completed the 8-week program and accomplished tx goals. Narrative Note: []
--- NOTE | 2023-05-25 15:58 | BH.DS_ITS ---
Discharge Summary Demographics Date of Admission:: 03/30/23 Discharge Date: 05/25/23 Presenting Problems at Admission:: Pt discharged from IOP tx and transitioned to IOP aftercare to maintain gains pt made in IOP and to reinforce healthy coping skills. At admission to IOP aftercare, pt continued to report symptoms of depression and anxiety, but of reduced intensity. Pt to continue working on building/maintaining social connections, prioritizing self-care and boundaries, processing her grief, and utilizing healthy coping skills to help with anger management. 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 Treatment Progress During Treatment & Response: Pt responded well and made progress in IOP aftercare as evidenced by pt's participation in group discussions and self- report of consistently applying coping skills. Pt's overall DSM-5 scores decreased by 12% from IOP admission. P pt's scores for anxiety decreased by 27% compared to original IOP scores. Pt's DSM 5 scores at discharge from aftercare are slightly higher which could be attributed with psychosocial stressor of being in the process of moving. Pt's anxiety and depression is increased which pt has attributed this to her move. Pt is feeling both anxious and excited about this move. Pt has shown progress in the way she has been coping with this stressor. Issues Still to be Addressed:: Pt can continue to benefit from social connections, prioritizing self-care and boundaries, processing her grief, and utilizing healthy coping skills to help with anger management. Discharge Recommendations/Instructions:: Pt will follow up with her PCP for medication management. Pt elected to not participate in individual outpatient counseling at this time. Discharge Handout
== END 2023-05-29 07:10 | disposition home or self-care (01) ==
LOC: BHOG 07:01
PROVIDERS: PCP Family Medicine; Referring Provider Psychiatry & Neurology Psychiatry; Visit Provider Psychiatry & Neurology Psychiatry
DX: F33.2 Major depressive disorder, recurrent severe without psychotic features (principal); F41.1 Generalized anxiety disorder; F41.0 Panic disorder [episodic paroxysmal anxiety]
CPT/HCPCS: 90853

== ENCOUNTER → 2023-06-22 | Outpatient (CLI) | payer MEDICARE, OTHER, SELFPAY ==
--- NOTE | 2023-06-22 11:55 | EKG12_ITS ---
Test Reason : PRE-OP Blood Pressure : / mmHG Vent. Rate : 084 BPM Atrial Rate : 084 BPM P-R Int : 164 ms QRS Dur : 082 ms QT Int : 362 ms P-R-T Axes : 041 026 034 degrees QTc Int : 427 ms Normal sinus rhythm T wave abnormality, consider inferior ischemia Abnormal ECG Confirmed by CLAUDY ANDRADE, GLENROY ([id number]), videotape editor MELITA WILLOUGHBY ([id number]) on 06/23/2023 10:39:35 AM Referred By: Silvio Mckeon Confirmed By:GLENROY LOCO MD
[2023-06-22 12:53] LABS: Hematocrit 36.9 % (37-47); Hemoglobin 12.2 g/dL (12.0-15.0); Mean Corp Hgb Conc 33.1 g/dL (32-36); Mean Corpuscular Hgb 29.9 pg (27.0-32.0); Mean Corpuscular Volume 90.4 fL (81-99); Mean Platelet Vol. 8.7 fl (6.2-12.0); Platelet Count 169 K/mm3 (150-450); RBC Distribution Width CV 12.4 % (11.6-14.6); Red Blood Count 4.08 M/mm3 (4.2-5.4); White Blood Count 3.8 K/mm3 (4.4-11.0)
[2023-06-22 13:17] LABS: Anion Gap 4 (5-15); BUN 16 mg/dL (7-18); BUN/Creat Ratio 19.9 RATIO (10-20); Calcium,Total 8.9 mg/dL (8.5-10.1); Chloride 105 mmol/L (98-107); EST Glomerular Filtration Rate 72 mL/min (>60); Est Glom Filt Rate - Afr Amer 87 mL/min (>60); Glucose 121 mg/dL (74-106); Potassium 3.9 mmol/L (3.5-5.1); Sodium Level 139 mmol/L (136-145)
== END | disposition home or self-care (01) ==
LOC: PSN 11:50
PROVIDERS: PCP Family Medicine; Referring Provider Physician Assistant Surgical; Visit Provider Physician Assistant Surgical
DX: Z01.810 Encounter for preprocedural cardiovascular examination (principal); Z01.818 Encounter for other preprocedural examination
CPT/HCPCS: 36415; 80048; 85027; 93005

== ENCOUNTER → 2023-07-14 | Outpatient (CLI) | payer MEDICARE, OTHER, SELFPAY ==
--- NOTE | 2023-07-14 09:39 | ECHOD_ITS ---
Reason For Study: Abn EKG Procedure This was a 2D Doppler, Color Flow transthoracic echocardiogram. Exam performed in department. Left Ventricle Normal size and thickness. The left ventricular ejection fraction is 65 %. Stage 1 diastolic dysfunction. Right Ventricle Normal right ventricle. Atria The left and right atria are normal. Mitral Valve Mild-Moderate (1-2+) mitral valve insufficiency. Tricuspid Valve Mild tricuspid valve insufficiency. Right ventricular systolic pressure estimated to be 38 mmHg. Aortic Valve Aortic sclerosis, no stenosis. Mild (1+) aortic valve insufficiency. Pulmonic Valve The pulmonic valve is not well visualized. Great Vessels Normal sized aortic root. Pericardium/Pleural No pericardial effusion. MMode/2D Measurements & Calculations LVIDd: 4.2 cm IVSd: 0.98 cm Ao root diam: 2.9 cm LVIDs: 2.6 cm LVPWd: 0.94 cm RVDd: 3.3 cm FS: 37.8 % LAV(MOD-bp): 23.4 ml LVAd ap4: 21.5 cm2 SV(MOD-sp4): 34.2 ml LAV(MOD-bp) Indexed: 12.8 ml/m2 LVLd ap4: 6.9 cm LAV(MOD-sp2): 20.6 ml EDV(MOD-sp4): 54.2 ml LAV(MOD-sp4): 21.4 ml EDV(sp4-el): 56.5 ml LVAs ap4: 11.2 cm2 LVLs ap4: 5.4 cm ESV(MOD-sp4): 20.0 ml ESV(sp4-el): 19.7 ml EF(MOD-sp4): 63.1 % EF(sp4-el): 65.2 % SV(sp4-el): 36.8 ml LA A4 area: 10.9 cm2 LA dimension(2D): 2.8 cm RA A4 area: 9.1 cm2 TAPSE: 2.4 cm Time Measurements MV dec time: 0.25 sec Doppler Measurements & Calculations MV E max jean: 63.8 cm/sec Lat Peak E' Jean: 7.5 cm/sec Med Peak E' Jean: 6.4 cm/sec MV A max jean: 101.7 cm/sec E/E' lat: 8.5 E/E' med: 10.0 MV E/A: 0.63 Ao V2 max: 175.1 cm/sec AI max jean: 424.3 cm/sec MV dec slope: 260.1 cm/sec2 Ao max P.3 mmHg AI max P.0 mmHg Ao V2 mean: 123.3 cm/sec Ao mean P.0 mmHg AI dec slope: 252.9 cm/sec2 Ao V2 VTI: 38.1 cm AI P1/2t: 491.5 msec AV (velocity ratio): 0.78 LV V1 max: 145.6 cm/sec PA V2 max: 78.2 cm/sec TR max jean: 271.7 cm/sec LV V1 max P.5 mmHg TR max P.5 mmHg LV V1 mean P.3 mmHg LV V1 mean: 110.7 cm/sec LV V1 VTI: 29.6 cm ECHO/Echo Complete Interpretation Summary The left ventricular ejection fraction is 65 %. Stage 1 diastolic dysfunction. Mild-Moderate (1-2+) mitral valve insufficiency. Mild tricuspid valve insufficiency. Right ventricular systolic pressure estimated to be 38 mmHg. Aortic sclerosis, no stenosis. Mild (1+) aortic valve insufficiency. Ordering Physician: Eddie Waggoner Referring Physician: Eddie Waggoner Performed By: Tasha Valdes, DOUG, RVT
== END | disposition home or self-care (01) ==
LOC: CVS 09:37
PROVIDERS: PCP Family Medicine; Referring Provider Family Medicine; Visit Provider Family Medicine
DX: R94.31 Abnormal electrocardiogram [ECG] [EKG] (principal)
CPT/HCPCS: 93306

== ENCOUNTER → 2023-07-20 | Outpatient (CLI) | payer MEDICARE, OTHER, SELFPAY | END | disposition home or self-care (01) | LOC: LABSPEC 14:57 | PROVIDERS: PCP Family Medicine; Referring Provider Otolaryngology Otolaryngology/Facial Plastic Surgery; Visit Provider Otolaryngology Otolaryngology/Facial Plastic Surgery | DX: J32.8 Other chronic sinusitis (principal) | CPT/HCPCS: 87070; 87205 ==

== ENCOUNTER → 2023-07-25 | Outpatient (CLI) | payer MEDICARE, OTHER, SELFPAY ==
[2023-07-25 15:56] LABS: Absolute Lymphocyte Count 1.18 X10^3/uL (0.83-4.51); Basophil# 0.03 X10^3/uL; Basophil% 0.8 % (0-1); Eosinophil# 0.14 X10^3/uL; Eosinophils% 3.9 % (0-5); Hematocrit 37.1 % (37-47); Hemoglobin 12.3 g/dL (12.0-15.0); Lymphocyte # 1.18 X10^3/ul (0.83-4.51); Lymphocyte % 33.1 % (19-41); Mean Corp Hgb Conc 33.2 g/dL (32-36); Mean Corpuscular Volume 90.5 fL (81-99); Mean Platelet Vol. 9.2 fl (6.2-12.0); Monocyte# 0.25 X10^3/uL; NRBC Flagged by Analyzer 0 % (0-5); Neutrophil # 1.96 X10^3/uL (2.7-7.7); Neutrophil % 54.9 % (47-70); Platelet Count 175 K/mm3 (150-450); RBC Distribution Width CV 11.9 % (11.6-14.6); RBC Distribution Width SD 39.5 fl (35.1-43.9); White Blood Count 3.6 K/mm3 (4.4-11.0)
[2023-07-25 16:30] LABS: ALB/GLOB Ratio 1.1 RATIO (0.9-2.4); AST(SGOT) 21 U/L (15-37); Alanine Aminotransfer ALT/SGPT 26 U/L (13-56); Albumin, Serum 3.9 g/dL (3.2-5.0); Alkaline Phosphatase 68 U/L (45-117); Anion Gap 8 (5-15); BUN 13 mg/dL (7-18); Calcium,Total 9.2 mg/dL (8.5-10.1); Chloride 101 mmol/L (98-107); Creatinine, Serum 0.76 mg/dL (0.55-1.02); EST Glomerular Filtration Rate 77 mL/min (>60); Est Glom Filt Rate - Afr Amer 93 mL/min (>60); Globulin 3.4 g/dL (2.2-4.2); Glucose 88 mg/dL (74-106); Potassium 4.1 mmol/L (3.5-5.1); Protein, Total 7.3 g/dL (6.4-8.2); Sodium Level 135 mmol/L (136-145); Thyroid Stim Hormone (TSH) 3.43 uIU/mL (0.358-3.74)
== END | disposition home or self-care (01) ==
LOC: MFPLAB 11:43
PROVIDERS: PCP Family Medicine; Visit Provider Family Medicine
DX: I10 Essential (primary) hypertension (principal); E03.9 Hypothyroidism, unspecified
CPT/HCPCS: 80053; 84443; 85025

== ENCOUNTER → 2023-08-11 | Outpatient (CLI) | payer MEDICARE, OTHER, SELFPAY | END | disposition home or self-care (01) | LOC: LABSPEC 15:26 | PROVIDERS: PCP Family Medicine; Referring Provider Family Medicine; Visit Provider Family Medicine | DX: R35.0 Frequency of micturition (principal) | CPT/HCPCS: 87086 ==

== ENCOUNTER → 2023-08-30 | Outpatient (CLI) | payer MEDICARE, OTHER, SELFPAY ==
--- NOTE | 2023-08-30 09:41 | STEWCON_ITS ---
Reason For Study: Abnormal EKG Stress Results Protocol: Terry Protocol WITH DEFINITY Maximum Predicted HR: 135 bpm Target HR: 115 bpm % Maximum Predicted HR: 87 % DurationHeart Rate Stage (mm:ss) (bpm) BP Comment Baseline 73 128/78No Chest Pain; 3 ML Diluted Definity Terry Protocol Stage I 3:00 118 128/78No Chest Pain; Leg Discomfort; Mild Dyspnea Terry Protocol Stage II 0:13 118 / No Chest Pain; Leg Discomfort; Moderate Dyspnea Recovery 86 136/80No Chest Pain Stress Duration: 3:13 mm:ss Maximum Stress HR: 118 bpm METS: 4 Baseline Echocardiogram Findings Stress Echo Wall motion Data Resting WM Intermediate WM Stress WM Resting Wall Motion Wall Motion Stress No regional wall motion No regional wall motion abnormalities noted. abnormalities noted. EKG Data The baseline ECG demonstrates normal sinus rhythm with at rate of _ beats per minute. No diagnostic ischemic ECG changes with exercise. Occasional PVCs. ECHO/Stress Test Echo W/Contrast Interpretation Summary No diagnostic ischemic ECG changes with exercise. Occasional PVCs. 87% maximum predicted heart rate achieved. No regional wall motion abnormalities noted post stress. Blunted blood pressure response to exercise. Recommend further evaluation with coronary CT angio if clinically indicated. Ordering Physician: Eddie Waggoner Referring Physician: Eddie Waggoner Performed By: Tasha Valdes, DOUG, RVT
== END | disposition home or self-care (01) ==
LOC: CVS 09:38
PROVIDERS: PCP Family Medicine; Referring Provider Family Medicine; Visit Provider Family Medicine
DX: R94.31 Abnormal electrocardiogram [ECG] [EKG] (principal)
CPT/HCPCS: 93017; 93350; Q9957; C8928

== ENCOUNTER → 2023-10-26 | Outpatient (CLI) | payer MEDICARE, OTHER, SELFPAY ==
[2023-10-26 17:31] LABS: Absolute Lymphocyte Count 1.39 X10^3/uL (0.83-4.51); Absolute Neutrophil Count 2.8 X10^3/uL (2.0-7.7); Basophil# 0.04 X10^3/uL; Basophil% 0.8 % (0-1); Eosinophil# 0.19 X10^3/uL; Hematocrit 35.4 % (37-47); Lymphocyte # 1.39 X10^3/ul (0.83-4.51); Lymphocyte % 29.1 % (19-41); Mean Corp Hgb Conc 33.9 g/dL (32-36); Mean Corpuscular Hgb 30.2 pg (27.0-32.0); Mean Corpuscular Volume 88.9 fL (81-99); Mean Platelet Vol. 8.7 fl (6.2-12.0); Monocyte# 0.33 X10^3/uL; Monocyte% 6.9 % (0-10); NRBC Flagged by Analyzer 0 % (0-5); Neutrophil # 2.79 X10^3/uL (2.7-7.7); Neutrophil % 58.6 % (47-70); Platelet Count 198 K/mm3 (150-450); RBC Distribution Width CV 11.9 % (11.6-14.6); RBC Distribution Width SD 37.7 fl (35.1-43.9); Red Blood Count 3.98 M/mm3 (4.2-5.4); White Blood Count 4.8 K/mm3 (4.4-11.0)
[2023-10-26 18:06] LABS: ALB/GLOB Ratio 1.1 RATIO (0.9-2.4); AST(SGOT) 23 U/L (15-37); Alanine Aminotransfer ALT/SGPT 26 U/L (13-56); Albumin, Serum 3.6 g/dL (3.2-5.0); Alkaline Phosphatase 70 U/L (45-117); Anion Gap 5 (5-15); BUN 14 mg/dL (7-18); BUN/Creat Ratio 16.8 RATIO (10-20); Calcium,Total 8.7 mg/dL (8.5-10.1); Chloride 104 mmol/L (98-107); Cholesterol 254 mg/dL (200); Creatinine, Serum 0.83 mg/dL (0.55-1.02); EST Glomerular Filtration Rate 69 mL/min (>60); Est Glom Filt Rate - Afr Amer 84 mL/min (>60); Globulin 3.4 g/dL (2.2-4.2); Glucose 104 mg/dL (74-106); High Density Lipoprotein 56 mg/dL; Potassium 3.7 mmol/L (3.5-5.1); Sodium Level 139 mmol/L (136-145); Triglycerides 242 mg/dL; Very Low Density Lipoprotein 48 mg/dL (5-40)
== END | disposition home or self-care (01) ==
LOC: MFPLAB 15:14
PROVIDERS: PCP Family Medicine; Visit Provider Family Medicine
DX: I10 Essential (primary) hypertension (principal); E03.9 Hypothyroidism, unspecified
CPT/HCPCS: 36415; 80053; 80061; 84443; 85025

== ENCOUNTER → 2023-10-27 | Outpatient (CLI) | payer MEDICARE, OTHER, SELFPAY ==
--- NOTE | 2023-10-27 07:38 | CT_ITS ---
STUDY: CT MAXILLOFACIAL SINUSES REASON FOR EXAM: Female, 83 years old. SINUSITIS RADIATION DOSAGE (If Supplied By Facility): CTDIvol = ( 33.06 ) mGy, DLP = ( 813.19 ) mGycm TECHNIQUE: The patient was scanned in a multi detector CT scanner. High resolution axial imaging was performed without the administration of intravenous contrast material. Sagittal and coronal images were reconstructed. Individualized dose optimization techniques were used for this CT. COMPARISON: None. FINDINGS: Small benign appearing cervical lymph nodes. FRONTAL SINUSES: Normal aeration, without mucosal inflammatory disease. ETHMOIDAL SINUSES: Normal aeration, without mucosal inflammatory disease. MAXILLARY SINUSES: Normal aeration, without mucosal inflammatory disease. SPHENOIDAL SINUSES: Normal aeration, without mucosal inflammatory disease. There is patency of the bilateral maxillary infundibuli with normal uncinate processes, ethmoid bullae, and hiatus semilunaris. Normal bilateral middle turbinates. Normal bilateral inferior turbinates. Normal midline nasal septum. There is patency of the bilateral nasal airways. The visualized osseous structures are normal. The visualized bilateral orbital contents are normal. CT/Sinus/Facial Bone IMPRESSION: Normal CT examination of the maxillofacial sinuses. Electronically Signed: Ramon Mendes MD at 10:37 EDT ,
== END | disposition home or self-care (01) ==
LOC: CT 07:37
PROVIDERS: PCP Family Medicine; Referring Provider Otolaryngology Otolaryngology/Facial Plastic Surgery; Visit Provider Otolaryngology Otolaryngology/Facial Plastic Surgery
DX: J32.8 Other chronic sinusitis (principal)
CPT/HCPCS: 70486

== ENCOUNTER 2023-12-19 13:11 | Day surgery (SDC) | payer MEDICARE, OTHER, SELFPAY ==
[2023-12-19] VITALS (9 sets, daily range): BP systolic 78–146; BP diastolic 41–72; PULSE 59–89; RESP 12–18; TEMP 36.1–36.8; O2SAT 93–97; BMI 26.1
--- NOTE | 2023-12-19 13:52 | PRE.ANES_ITS ---
ASA Classification* ASA Classification ASA Classification: 2 Assessment & Plan Anesthesia* Anesthesia Assessment Anesthesia Assessment: Discussed sedation and/or anesthesia options, risks, benefits, and alternatives with patient/parents/legal guardian/POA. Questions invited. The patient/parents/legal guardian/POA seems to understand and agrees to proceed with anesthesia plan. Reviewed the physical assessment, medical history, allergy history and patient home medications list prior to surgery/procedure/anesthetic and documented any changes. Performed airway and anesthesia risk assessments. Anesthesia Type Anesthesia Type: MAC History Source History Obtained from:: Patient and Chart Anesthesia Focused Assessment* Temperature: 97.2 F Pulse Rate: 89 Blood Pressure: 146/72 Respiratory Rate: 18 Pulse Ox: 97 Oxygen Delivery Method: Room Air Airway Assessment Mouth opens: >3 cm Mallampati Score: IV Teeth Condition: Intact (Patient had implants bilaterally in the upper jaw.) Neck Range of motion (ROM): Limited ROM (Slight decrease extension) Focused Labs Anesthesia Preop lab: CBC WBC 4.8 K/mm3 (4.4-11.0) 10/26/23 15:14 RBC 3.98 M/mm3 (4.2-5.4) L 10/26/23 15:14 Hgb 12.0 g/dL (12.0-15.0) 10/26/23 15:14 Hct 35.4 % (37-47) L 10/26/23 15:14 Plt Count 198 K/mm3 (150-450) 10/26/23 15:14 CHEMISTRY Potassium 3.7 mmol/L (3.5-5.1) 10/26/23 15:14 Sodium 139 mmol/L (136-145) 10/26/23 15:14 BUN 14 mg/dL (7-18) 10/26/23 15:14 Creatinine 0.83 mg/dL (0.55-1.02) 10/26/23 15:14 Glucose 104 mg/dL (74-106) 10/26/23 15:14 TSH 3.110 uIU/mL (0.358-3.740) 10/26/23 15:14 COAG PT 12.4 SECONDS (11.7-14.9) 07/04/16 11:00 Pre-Assessment Diagnosis/Proposed Procedure Planned Operative Procedure(s): CSCOPE and hemorrhoidal banding. Anesthesia History Anesthesia History - coat feller: Anesthesia History - coat feller Hx Hospitalization No 12/15/23 09:44 Any Problems With Anesthesia No 12/15/23 09:44 Cholinesterase deficiency No 12/15/23 09:44 You/Your Family Experience No 12/15/23 09:44 fever (hyperthermia) with Relationship Recent Exposure to Contagious No 12/19/23 13:28 Disease Does patient have nerve No 12/15/23 09:44 stimulator Patient instructed to have device shut off --Does patient have Pacemaker No 12/19/23 13:28 or ICD? When Was Last Pacemaker Check QUESTION #4 FULL TEXT: You/Your Family Experience fever (hyperthermia) with Anesthesia Last Oral Intake Last Oral intake: Last Oral Intake NPO since 00:00 12/19/23 13:28 Meds taken in AM with sips of Yes 12/19/23 13:28 water? Meds patient instructed to take am of surgery Any additional information?: Yes NPO since: 10:00 (Patient finished prep at 10 AM.) PONV PONV - coat feller: PONV - coat feller Female Yes 12/15/23 09:44 HX of Motion Sickness No 12/15/23 09:44 HX of N/V After Surgery No 12/15/23 09:44 Non-Smoker Yes 12/15/23 09:44 Duration of Surgery greater No 12/15/23 09:44 than 60 minutes Number of Risk Factors 2 12/15/23 09:44 PONV Score Moderate Risk 12/15/23 09:44 Height & Weight Height & Weight: Anesthesia: Height & Weight Height 5 ft 6 in 12/19/23 13:28 Weight: 73.391 kg 12/19/23 13:28 Body Mass Index (BMI) 26.1 12/19/23 13:28 Respiratory Assessment Respiratory Assessment - coat feller: Respiratory Tract Infection Hx - coat feller Hx Respiratory Tract Infection No 12/15/23 09:44 STOP Sleep Apnea STOP Sleep Apnea - coat feller: STOP Sleep Apnea - coat feller Hx Hypertension Yes: NO MED FOR 1 WEEK 12/15/23 09:44 Hx Sleep Apnea No 12/15/23 09:44 CPAP BIPAP Do you snore loudly (louder No 12/15/23 09:44 than talking or can be heard Do you often feel tired/ Yes 12/15/23 09:44 fatigued/ sleepy during daytime? Has anyone observed you stop No 12/15/23 09:44 breathing during sleep? STOP Results Positive 12/15/23 09:44 QUESTION #5 FULL TEXT : Do you snore loudly (louder than talking or can be heard through closed doors)? 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 Specify any problems Hx of Preganancy in last 3 No 12/15/23 09:44 Months Nurse Filling Out Transfusion DSCHRIBER 12/15/23 09:44 & Questions: Date: 12/15/23 12/15/23 09:44 Time: 09:45 12/15/23 09:44 Patient unable to answer at this time (ie. confused, unrespo /Reproduction History /Reproductive History - coat feller: /Reproductive Hx- coat feller Hx Now No 12/15/23 09:44 Gestational Age (in weeks): EDC: Hx Hx Para Hx Section SAB No 12/15/23 09:44 PFSH Medical History (Updated 12/15/23 @ 09:52 by Roma Lopez) Wears hearing aid Loss of hearing Wears glasses Depression Alcohol use Thyroid disease Bladder disease High cholesterol Easy bruising History of IBS Bleeding hemorrhoids Heartburn Non-smoker History of stress test History of echocardiogram Cardiology follow-up encounter Abnormal EKG Varicose veins of both lower extremities Thrombocytopenia Polyp of colon Hyperlipidemia Adjustment disorder Insomnia IBS (irritable bowel syndrome) Panic disorder Generalized anxiety disorder Major depressive disorder, recurrent severe without psychotic features Hypothyroid Hypertension Leukopenia Home Medications ?Medication ?Instructions ?Recorded ?Last Taken ?Type amlodipine 5 mg tablet 5 mg PO DAILY 07/14/22 Unknown History folic acid 1 mg tablet 1 mg PO DAILY 07/14/22 12/15/23 History glucosamine 750 my-rlbtxzfvzvy-fbr 1 tab PO DAILY 07/14/22 12/18/23 History no1 644 mg-C 30 mg-liset 1 mg tablet (Osteo Bi-Flex Triple Strength) levothyroxine 137 mcg tablet 137 mcg PO DAILY 07/14/22 12/18/23 History multivitamin 1 tab PO DAILY 07/14/22 12/15/23 History citalopram 40 mg tablet (Celexa) 40 mg PO DAILY 30 days #30 tabs 03/08/23 12/18/23 Rx trazodone 100 mg tablet 100 mg PO QHS 08/09/23 12/18/23 History Allergy/AdvReac Type Severity Reaction Status Date / Time Iodinated Contrast Media Allergy Rash Verified 12/19/23 13:25 atorvastatin (From Lipitor) AdvReac Upset Verified 12/19/23 13:25 Stomach bupropion (From Wellbutrin) AdvReac Other Verified 12/19/23 13:25 paroxetine (From Paxil) AdvReac [place] poorly Verified 12/19/23 13:25 rosuvastatin (From Crestor) AdvReac Upset Verified 12/19/23 13:25 Stomach sertraline (From Zoloft) AdvReac Other Verified 12/19/23 13:25 simvastatin (From Zocor) AdvReac Upset Verified 12/19/23 13:25 Stomach Family History Mother Hypertension Father Hypertension Depression CVA (cerebral vascular accident) Bladder cancer Brother Cancer Surgical History (Updated 12/15/23 @ 09:52 by Roma Lopez) Hx of colonoscopy Trigger finger of left thumb History of reverse total replacement of left shoulder joint H/O varicose vein ligation History of tonsillectomy and adenoidectomy History of hysterectomy Social History Smoking Status: Never smoker alcohol intake: current alcohol intake frequency: holidays/special occasions only substance use type: does not use Review of Systems (Anesthesia) ROS Narrative System reviewed and no additional complaints, except as documented.
--- NOTE | 2023-12-19 14:25 | PCM.HP.BLA ---
History and Physical Date of Admission: 12/19/23 OV 9.23.24 Pt reports that she is here to discuss possible hemorrhoid banding. Pt states that she has a terrible time going to the bathroom and does not want to continues having to take as many laxatives and stool softeners as she is. States that her last colonoscopy was 7-8 years ago. [facility] Medical History Abnormal EKG Varicose veins of both lower extremities Thrombocytopenia Polyp of colon Hyperlipidemia Adjustment disorder Insomnia IBS (irritable bowel syndrome) Bereavement Panic disorder Generalized anxiety disorder Major depressive disorder, recurrent severe without psychotic features Hypothyroid Hypertension Leukopenia Surgical History Trigger finger of left thumb History of reverse total replacement of left shoulder joint H/O varicose vein ligation History of tonsillectomy and adenoidectomy History of hysterectomy Family History Mother HypertensionFather Hypertension Depression CVA (cerebral vascular accident) Bladder cancerBrother Cancer Social History Smoking Status: Never smoker alcohol intake: current alcohol intake frequency: holidays/special occasions only substance use type: does not use HPI HPI Chief Complaint: hemrrhoids, nausea Details: ALISON HILTON, is a 83 F who presents to the office today for establishment with [facility]. Pt has a PMHx of valvular heart disease, thrombocytopenia, HLD, HTN, hypothyroid, IBS and anxiety. SHe is here today for her constipation which she feels is causing her constipation. She had a colonoscopy about [address] Mendenhall with hemorrhoids and a few polyps. She feels her stool is too small and has a hard time passing around the hemorrhoids. She does not feel any external hemorrhoids. She will take Dulcolax and miralax on occasion to relieve her constipation but does not want to take this forever. She has complaints of a nervous stomach and nausea in the morning. She feels this is related to her anxiety and she takes citalopram and BuSpar. She has a family hx of colon cancer and pancreatic cancer. ROS Const Constitutional: Positive for headache(s); No fatigue, fever(s) or weight change ENT ENT: Positive for headache(s); No difficulty swallowing Gastro GI: Positive for abdominal pain, bloating, change in bowel habits, constipation, heartburn, excessive flatus and nausea/dyspepsia; No belching, change in stool character, coffee ground emesis, cramping, diarrhea, difficulty swallowing, feeling full early, incontinent of stools, Vomiting blood/hematemesis, Blood in stool, loose stools, Black,tarry stools, pain with swallowing, vomiting or other Musc Musculoskeletal: Positive for back pain and Arthritis; No joint pain Skin Skin: Positive for itchy eyes; No yellowing of the eye Neuro Neurology: Positive for headache(s) Psych Psychiatric: Positive for anxiety and Positive for depression Endo Endocrine: No fatigue or weight change Aller/Imm Allergy/Immunologic: Positive for itchy eyes Sd/Lymp Hematologic/Lymphatic: Positive for easy bruising; No easy bleeding Exam Const General: cooperative and comfortable Nutritional Appearance: average body habitus and well nourished HENMT Head: normal to inspection Ears: hearing grossly normal bilaterally Nose: external nose normal Face and sinus: normal facial exam Eyes General: appearance normal, both eyes and all related structures Neck Neck: normal visual inspection Chest Chest palpation & inspection: normal inspection of the chest Resp Effort & Inspection: normal respiratory effort and able to speak in complete sentences GI Inspection: normal to inspection Skin General: no rashes or lesions noted Neuro General: patient alert Extrem General: normal to inspection Psych Affect: normal affect Assessment and Plan Assessment and Plan (1) Hemorrhoids: (2) Constipation: Status: Acute Plan: Pt is an 83 yo female here today for a establishment with [facility]. She has been having constipation for a long time with small hard stools. She feels that it may be related to internal hemorrhoids. She had a colonoscopy 10+ years ago and was told she had some pretty severe hemorrhoids but had no tx of these. We will get a colonoscopy with possible banding if indicated. I recommended she start a fiber supplement daily and miralax as needed. She is agreeable to this plan. She also has complaints of timber hand nausea which she feels to be related to anxiety and low blood sugar. She takes citalopram and BuSpar. We can reassess this concern in the future with EGD if indicated. She does not feel further work up is necessary at this time. -Colonoscopy with banding -Start daily fiber supplement and miralax prn -Consider further testing for nausea in the future -F/u in 3 months I have examined the patient and the H&P has been reviewed. There are no clinical changes since date of exam.
--- NOTE | 2023-12-19 15:16 | OP.CCLET_ITS ---
12/19/2023 Eddie Waggoner Md Re : Colonoscopy procedure for Socorro Santacruz Dear Rosaline This procedure was performed on Tuesday, December 19, 2023. My impressions and recommendations are as follows: Impressions : - Hemorrhoids found on perianal exam. - A single non-bleeding colonic angiodysplastic lesion. - External and internal hemorrhoids. Banded. - No specimens collected. Recommendations : - Return to GI office. - No recommendation at this time regarding repeat colonoscopy due to age. - Continue present medications. My findings are described in the full procedure note, which is enclosed. If I can be of further assistance, please feel free to contact me at . Sincerely, Willie Shook, 12/19/2023 3:16:04 PM This report has been signed electronically.
--- NOTE | 2023-12-19 15:16 | OP.COLON_ITS ---
Patient Name: Socorro Santacruz Procedure Date: 12/19/2023 2:28 PM Date of : 1940 Age: 83 Procedure: Colonoscopy Indications: Hematochezia Providers: Willie Shook DO Medicines: Monitored Anesthesia Care Patient Profile: This is an 83 year old female. Refer to note in patient chart for documentation of history and physical. Last Colonoscopy: several years ago. Complications: No immediate complications. Procedure: Pre-Anesthesia Assessment: - Prior to the procedure, a History and Physical was performed, and patient medications and allergies were reviewed. The patient is competent. The risks and benefits of the procedure and the sedation options and risks were discussed with the patient. All questions were answered and informed consent was obtained. Patient identification and proposed procedure were verified by the physician in the pre-procedure area. Mental Status Examination: alert and oriented. Airway Examination: normal oropharyngeal airway and neck mobility. Respiratory Examination: clear to auscultation. CV Examination: normal. Prophylactic Antibiotics: The patient does not require prophylactic antibiotics. Prior Anticoagulants: The patient has taken no anticoagulant or antiplatelet agents except for NSAID medication. ASA Grade Assessment: II - A patient with mild systemic disease. After reviewing the risks and benefits, the patient was deemed in satisfactory condition to undergo the procedure. The anesthesia plan was to use monitored anesthesia care (MAC). Immediately prior to administration of medications, the patient was re-assessed for adequacy to receive sedatives. The heart rate, respiratory rate, oxygen saturations, blood pressure, adequacy of pulmonary ventilation, and response to care were monitored throughout the procedure. The physical status of the patient was re-assessed after the procedure. After I obtained informed consent, the scope was passed under direct vision. Throughout the procedure, the patient's blood pressure, pulse, and oxygen saturations were monitored continuously. The Colonoscope was introduced through the anus and advanced to the cecum, identified by appendiceal orifice and ileocecal valve. The colonoscopy was performed without difficulty. The patient tolerated the procedure well. The quality of the bowel preparation was adequate. The ileocecal valve, appendiceal orifice, and rectum were photographed. Scope In: 2:39:31 PM Scope Withdrawal Time 0 hours 14 minutes 53 seconds Scope Out: 3:08:47 PM Total Procedure Duration Time 0 hours 29 minutes 16 seconds Findings: Hemorrhoids were found on perianal exam. A single medium-sized angiodysplastic lesion without bleeding was found in the cecum. External and internal hemorrhoids were found during retroflexion. The hemorrhoids were Grade II (internal hemorrhoids that prolapse but reduce spontaneously). A hemorrhoid was isolated with endoscopy. The JANY ligator was positioned over the hemorrhoid at the left lateral position. Suction was applied and one rubber band was placed over the hemorrhoid. This was checked to make certain that the muscularis was free of the band. Post-banding digital rectal exam showed band in good position. There were no complications. Impression: - Hemorrhoids found on perianal exam. - A single non-bleeding colonic angiodysplastic lesion. - External and internal hemorrhoids. Banded. - No specimens collected. Recommendation: - Return to GI office. - No recommendation at this time regarding repeat colonoscopy due to age. - Continue present medications. Procedure Code(s): --- Professional --- 24554, Colonoscopy, flexible; with band ligation(s) (eg, hemorrhoids) CPT copyright 2021 [employer]. All rights reserved. The codes documented in this report are preliminary and upon orthopedic coder review may be revised to meet current compliance requirements. Willie Shook DO 12/19/2023 3:16:04 PM This report has been signed electronically. Number of Addenda: 0 Note Initiated On: 12/19/2023 2:28 PM
--- NOTE | 2023-12-19 15:17 | PCM.POST.ANE ---
Anesthesia: Postop Eval I Current Vital Signs Temperature: 97 F Pulse Rate: 60 Blood Pressure: 78/48 Respiratory Rate: 12 Pulse Ox: 96 Oxygen Delivery Method: Room Air Assessment Airway patent: Yes Spontaneous unlabored respirations: Yes Mental status: Asleep nausea: No Vomiting: No Anesthesia Complication: No Fluid Hydration Crystalloid volume administer (ml): 30 Total IV fluid infused: 30 Progress Note Anesthesia document: Postop Eval 1 completed: Yes
--- NOTE | 2023-12-19 17:02 | PCM.POSTANE2 ---
Anesthesia Postop Eval I Sum Postop Eval Completion status Anesthesia document: Postop Eval 1 completed: Yes Anesthesia Postop Eval I Summary Anesthesia Postop Eval I Summary: Anesthesia Postop Eval I: Assessment Summary Airway patent Yes 12/19/23 15:18 [email or web address] Spontaneous unlabored Yes 12/19/23 15:18 [email or web address] respirations Mental status Asleep 12/19/23 15:18 [email or web address] nausea No 12/19/23 15:18 [email or web address] Vomiting No 12/19/23 15:18 [email or web address] Anesthesia Postop Eval I: Fluid Summary Crystalloid volume administer 30 12/19/23 15:18 [email or web address] (ml) Colloids volume administered ( ml) Blood Product volume administered (ml) Total IV fluid infused 30 12/19/23 15:18 [email or web address] Anesthesia Postop Eval I: Summary Notes Anesthesia Complication No 12/19/23 15:18 [email or web address] Anesthesia Complication Comment: Post-operative progress note Anesthesia: Postop Eval II Evaluation Mental status: Awake and Calm Pain Level: 0 nausea: No Vomiting: No Complications Anesthesia Complication: No
== END 2023-12-19 15:50 | disposition home or self-care (01) ==
LOC: EN 13:12 → AC 13:14
PROVIDERS: PCP Family Medicine; Referring Provider Family Medicine; Visit Provider Internal Medicine Gastroenterology
PROC: 0DJD8ZZ Inspection of Lower Intestinal Tract, Via Natural or Artificial Opening Endoscopic (ICD-10-PCS; CPT 45378; principal; 2023-12-19 14:10)
DX: K64.1 Second degree hemorrhoids (principal); K64.4 Residual hemorrhoidal skin tags; E78.5 Hyperlipidemia, unspecified; K59.00 Constipation, unspecified; I10 Essential (primary) hypertension; Z96.612 Presence of left artificial shoulder joint; Z90.710 Acquired absence of both cervix and uterus; K63.9 Disease of intestine, unspecified
CPT/HCPCS: 45398; J2405

== ENCOUNTER → 2024-02-16 | Outpatient (CLI) | payer MEDICARE, OTHER, SELFPAY ==
[2024-02-16 10:37] LABS: Absolute Lymphocyte Count 1.41 X10^3/uL (0.83-4.51); Absolute Neutrophil Count 2.6 X10^3/uL (2.0-7.7); Basophil# 0.05 X10^3/uL; Eosinophil# 0.21 X10^3/uL; Eosinophils% 4.4 % (0-5); Hematocrit 38.2 % (37-47); Hemoglobin 12.9 g/dL (12.0-15.0); Lymphocyte # 1.41 X10^3/ul (0.83-4.51); Lymphocyte % 29.5 % (19-41); Mean Corp Hgb Conc 33.8 g/dL (32-36); Mean Corpuscular Hgb 30.1 pg (27.0-32.0); Mean Platelet Vol. 8.6 fl (6.2-12.0); Monocyte# 0.42 X10^3/uL; Monocyte% 8.8 % (0-10); NRBC Flagged by Analyzer 0 % (0-5); Neutrophil # 2.64 X10^3/uL (2.7-7.7); Neutrophil % 55.3 % (47-70); Platelet Count 193 K/mm3 (150-450); RBC Distribution Width CV 11.9 % (11.6-14.6); RBC Distribution Width SD 38.3 fl (35.1-43.9); Red Blood Count 4.29 M/mm3 (4.2-5.4); White Blood Count 4.8 K/mm3 (4.4-11.0)
[2024-02-16 11:29] LABS: ALB/GLOB Ratio 1.3 RATIO (0.9-2.4); AST(SGOT) 12 U/L (15-37); Alanine Aminotransfer ALT/SGPT 23 U/L (13-56); Albumin, Serum 3.9 g/dL (3.2-5.0); Alkaline Phosphatase 63 U/L (45-117); Anion Gap 4 (5-15); BUN 14 mg/dL (7-18); BUN/Creat Ratio 16.3 RATIO (10-20); Calcium,Total 9.4 mg/dL (8.5-10.1); Chloride 103 mmol/L (98-107); Creatinine, Serum 0.86 mg/dL (0.55-1.02); EST Glomerular Filtration Rate 67 mL/min (>60); Est Glom Filt Rate - Afr Amer 81 mL/min (>60); Globulin 2.9 g/dL (2.2-4.2); Glucose 94 mg/dL (74-106); Lipase 37 U/L (13-75); Potassium 4.4 mmol/L (3.5-5.1); Protein, Total 6.8 g/dL (6.4-8.2); Sodium Level 137 mmol/L (136-145)
== END | disposition home or self-care (01) ==
PROVIDERS: PCP Family Medicine; Referring Provider Student in an Organized Health Care Education/Training Program; Visit Provider Student in an Organized Health Care Education/Training Program
DX: K92.1 Melena (principal); R10.13 Epigastric pain
CPT/HCPCS: 36415; 80053; 83690; 85025

== ENCOUNTER 2024-04-16 13:12 | Day surgery (SDC) | payer MEDICARE, OTHER, SELFPAY ==
--- NOTE | 2024-04-15 10:32 | PAT.ANESEVAL ---
Pre-Assessment Diagnosis/Proposed Procedure Planned Operative Procedure(s): EGD Anesthesia History Anesthesia History - investigation clerk: Anesthesia History - investigation clerk Hx Hospitalization No 04/11/24 15:16 Any Problems With Anesthesia No 04/11/24 15:16 Cholinesterase deficiency No 04/11/24 15:16 You/Your Family Experience No 04/11/24 15:16 fever (hyperthermia) with Relationship Recent Exposure to Contagious No 12/19/23 13:28 Disease Does patient have nerve No 04/11/24 15:16 stimulator Patient instructed to have device shut off --Does patient have Pacemaker or ICD? When Was Last Pacemaker Check QUESTION #4 FULL TEXT: You/Your Family Experience fever (hyperthermia) with Anesthesia Last Oral Intake Last Oral intake: Last Oral Intake NPO since Meds taken in AM with sips of water? Meds patient instructed to take am of surgery PONV PONV - investigation clerk: PONV - investigation clerk Female Yes 04/11/24 15:16 HX of Motion Sickness No 04/11/24 15:16 HX of N/V After Surgery No 04/11/24 15:16 Non-Smoker Yes 04/11/24 15:16 Duration of Surgery greater No 04/11/24 15:16 than 60 minutes Number of Risk Factors 2 04/11/24 15:16 PONV Score Moderate Risk 04/11/24 15:16 Height & Weight Height & Weight: Anesthesia: Height & Weight Height 5 ft 6 in 12/19/23 13:28 Respiratory Assessment Respiratory Assessment - investigation clerk: Respiratory Tract Infection Hx - investigation clerk Hx Respiratory Tract Infection No 04/11/24 15:16 STOP Sleep Apnea STOP Sleep Apnea - investigation clerk: STOP Sleep Apnea - investigation clerk Hx Hypertension Yes: CONTROLLED ON MEDS 04/11/24 15:16 Hx Sleep Apnea No 04/11/24 15:16 CPAP BIPAP Do you snore loudly (louder No 04/11/24 15:16 than talking or can be heard Do you often feel tired/ No 04/11/24 15:16 fatigued/ sleepy during daytime? Has anyone observed you stop No 04/11/24 15:16 breathing during sleep? STOP Results Negative 04/11/24 15:16 QUESTION #5 FULL TEXT : Do you snore loudly (louder than talking or can be heard through closed doors)? 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 Specify any problems Hx of Preganancy in last 3 No 04/11/24 15:16 Months Nurse Filling Out Transfusion MGRIFFITH 04/11/24 15:16 & Questions: Date: 04/11/24 04/11/24 15:16 Time: 15:18 04/11/24 15:16 Patient unable to answer at this time (ie. confused, unrespo /Reproduction History /Reproductive History - investigation clerk: /Reproductive Hx- investigation clerk Hx Now Gestational Age (in weeks): EDC: Hx Hx Para Hx Section SAB No 12/15/23 09:44 PFS Medical History (Updated 04/11/24 @ 15:27 by Renata Roberts) Arthritis Gastric reflux Wears hearing aid Loss of hearing Wears glasses Depression Alcohol use Thyroid disease High cholesterol Easy bruising History of IBS Bleeding hemorrhoids Heartburn Non-smoker History of stress test History of echocardiogram Cardiology follow-up encounter Abnormal EKG Varicose veins of both lower extremities Thrombocytopenia Polyp of colon Hyperlipidemia Adjustment disorder Insomnia IBS (irritable bowel syndrome) Panic disorder Generalized anxiety disorder Major depressive disorder, recurrent severe without psychotic features Hypothyroid Hypertension Leukopenia Home Medications ?Medication ?Instructions ?Recorded ?Last Taken ?Type amlodipine 5 mg tablet 5 mg PO DAILY 07/14/22 Unknown History folic acid 1 mg tablet 1 mg PO DAILY 07/14/22 12/15/23 History glucosamine 750 [id number] 1 tab PO DAILY 07/14/22 12/18/23 History no1 644 mg-C 30 mg-liset 1 mg tablet (Osteo Bi-Flex Triple Strength) levothyroxine 137 mcg tablet 137 mcg PO DAILY 07/14/22 12/18/23 History multivitamin 1 tab PO DAILY 07/14/22 12/15/23 History citalopram 40 mg tablet (Celexa) 40 mg PO DAILY 30 days #30 tabs 03/08/23 12/18/23 Rx trazodone 100 mg tablet 100 mg PO QHS 08/09/23 12/18/23 History pantoprazole 40 mg tablet,delayed 40 mg PO BID #90 tabs 02/16/24 Unknown Rx release dicyclomine 10 mg capsule 10 mg PO BID #30 caps 02/22/24 Unknown Rx Allergy/AdvReac Type Severity Reaction Status Date / Time Iodinated Contrast Media Allergy Rash Verified 04/11/24 15:12 atorvastatin (From Lipitor) AdvReac Upset Verified 04/11/24 15:12 Stomach bupropion (From Wellbutrin) AdvReac Other Verified 04/11/24 15:12 paroxetine (From Paxil) AdvReac [place] poorly Verified 04/11/24 15:12 rosuvastatin (From Crestor) AdvReac Upset Verified 04/11/24 15:12 Stomach sertraline (From Zoloft) AdvReac Other Verified 04/11/24 15:12 simvastatin (From Zocor) AdvReac Upset Verified 04/11/24 15:12 Stomach Family History Mother Hypertension Father Hypertension Depression CVA (cerebral vascular accident) Bladder cancer Brother Cancer Surgical History (Updated 12/15/23 @ 09:52 by Roma Lopez) Hx of colonoscopy Trigger finger of left thumb History of reverse total replacement of left shoulder joint H/O varicose vein ligation History of tonsillectomy and adenoidectomy History of hysterectomy Social History Smoking Status: Never smoker alcohol intake: current alcohol intake frequency: holidays/special occasions only substance use type: does not use Audit: Pertinent Findings Pertinent Findings EKG Perinent findings: wnl 08/09/23 Stress test pertinent findings: occ pvc's otherwise neg. EF 87 Consult pertinent findings: Cardio 08/09/23 abnl ekg with minor Twave changes. Echo normal fxn. HTN chronic, stable. no further wkups Recommendation Anesthesia Recommendation Anesthesia recommendation: OPTIMIZED for anesthesia
[2024-04-16] VITALS (7 sets, daily range): BP systolic 124–157; BP diastolic 79–95; PULSE 71–81; RESP 16; TEMP 36.6–37; O2SAT 97–98; BMI 25.2
--- NOTE | 2024-04-16 13:50 | PCM.PRE.AN2 ---
ASA Classification* ASA Classification ASA Classification: 2 Assessment & Plan Anesthesia* Anesthesia Assessment Anesthesia Assessment: Discussed sedation and/or anesthesia options, risks, benefits, and alternatives with patient/parents/legal guardian/POA. Questions invited. The patient/parents/legal guardian/POA seems to understand and agrees to proceed with anesthesia plan. Reviewed the physical assessment, medical history, allergy history and patient home medications list prior to surgery/procedure/anesthetic and documented any changes. Performed airway and anesthesia risk assessments. Anesthesia Type Anesthesia Type: MAC History Source History Obtained from:: Patient and Chart Anesthesia Focused Assessment* Temperature: 98.6 F Pulse Rate: 81 Blood Pressure: 157/80 Respiratory Rate: 16 Pulse Ox: 98 Oxygen Delivery Method: Room Air Airway Assessment Mouth opens: 2 cm Mallampati Score: IV Teeth Condition: Caps/Crowns (Patient has a couple of implants on the bottom. They are tight.) and Missing (Couple missing teeth.) Neck Range of motion (ROM): Limited ROM (somewhat decreased extension) Focused Labs Anesthesia Preop lab: CBC WBC 4.8 K/mm3 (4.4-11.0) 02/16/24 09:37 02/16/24 RBC 4.29 M/mm3 (4.2-5.4) 02/16/24 09:37 02/16/24 Hgb 12.9 g/dL (12.0-15.0) 02/16/24 09:37 02/16/24 Hct 38.2 % (37-47) 02/16/24 09:37 02/16/24 Plt Count 193 K/mm3 (150-450) 02/16/24 09:37 02/16/24 CHEMISTRY Potassium 4.4 mmol/L (3.5-5.1) 02/16/24 09:37 02/16/24 Sodium 137 mmol/L (136-145) 02/16/24 09:37 02/16/24 BUN 14 mg/dL (7-18) 02/16/24 09:37 02/16/24 Creatinine 0.86 mg/dL (0.55-1.02) 02/16/24 09:37 02/16/24 Glucose 94 mg/dL (74-106) 02/16/24 09:37 02/16/24 TSH 3.110 uIU/mL (0.358-3.740) 10/26/23 15:14 10/26/23 COAG PT 12.4 SECONDS (11.7-14.9) 07/04/16 11:00 07/04/16 Pre-Assessment Diagnosis/Proposed Procedure Planned Operative Procedure(s): EGD Anesthesia History 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 When Was Last Pacemaker Check QUESTION #4 FULL TEXT: You/Your Family Experience fever (hyperthermia) with Anesthesia Last Oral Intake Last Oral intake: Last Oral Intake NPO since Meds taken in AM with sips of Yes 04/16/24 13:36 water? 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 Female Yes 04/11/24 15:16 HX of Motion Sickness No 04/11/24 15:16 HX of N/V After Surgery No 04/11/24 15:16 Non-Smoker Yes 04/11/24 15:16 Duration of Surgery greater No 04/11/24 15:16 than 60 minutes Number of Risk Factors 2 04/11/24 15:16 PONV Score Moderate Risk 04/11/24 15:16 Height & Weight Height & Weight: Anesthesia: Height & Weight Height 5 ft 6 in 04/16/24 13:36 Weight: 71 kg 04/16/24 13:36 Body Mass Index (BMI) 25.2 04/16/24 13:36 Respiratory Assessment Respiratory Assessment - bakery clerk: Respiratory Tract Infection Hx - bakery clerk Hx Respiratory Tract Infection No 04/11/24 15:16 Any additional information?: Yes Hx Respiratory Tract Infection: Yes (Patient had influenza A. This is resolved about a week and a half ago.) STOP Sleep Apnea STOP Sleep Apnea - bakery clerk: STOP Sleep Apnea - bakery clerk Hx Hypertension Yes: CONTROLLED ON MEDS 04/11/24 15:16 Hx Sleep Apnea No 04/11/24 15:16 CPAP BIPAP Do you snore loudly (louder No 04/11/24 15:16 than talking or can be heard Do you often feel tired/ No 04/11/24 15:16 fatigued/ sleepy during daytime? Has anyone observed you stop No 04/11/24 15:16 breathing during sleep? STOP Results Negative 04/11/24 15:16 QUESTION #5 FULL TEXT : Do you snore loudly (louder than talking or can be heard through closed doors)? 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 Specify any problems Hx of Preganancy in last 3 No 04/11/24 15:16 Months Nurse Filling Out Transfusion MGRIMARK 04/11/24 15:16 & Questions: Date: 04/11/24 04/11/24 15:16 Time: 15:18 04/11/24 15:16 Patient unable to answer at this time (ie. confused, unrespo /Reproduction History /Reproductive History - bakery clerk: /Reproductive Hx- bakery clerk Hx Now Gestational Age (in weeks): EDC: Hx Hx Para Hx Section SAB No 12/15/23 09:44 PFSH Medical History Arthritis Gastric reflux Wears hearing aid Loss of hearing Wears glasses Depression Alcohol use Thyroid disease High cholesterol Easy bruising History of IBS Bleeding hemorrhoids Heartburn Non-smoker History of stress test History of echocardiogram Cardiology follow-up encounter Abnormal EKG Varicose veins of both lower extremities Thrombocytopenia Polyp of colon Hyperlipidemia Adjustment disorder Insomnia IBS (irritable bowel syndrome) Panic disorder Generalized anxiety disorder Major depressive disorder, recurrent severe without psychotic features Hypothyroid Hypertension Leukopenia Home Medications ?Medication ?Instructions ?Recorded ?Last Taken ?Type amlodipine 5 mg tablet 5 mg PO DAILY 07/14/22 04/16/24 History folic acid 1 mg tablet 1 mg PO DAILY 07/14/22 12/15/23 History glucosamine 750 jv-rhwakluyutb-ysn 1 tab PO DAILY 07/14/22 04/15/24 History no1 644 mg-C 30 mg-liset 1 mg tablet (Osteo Bi-Flex Triple Strength) levothyroxine 137 mcg tablet 137 mcg PO DAILY 07/14/22 04/16/24 History multivitamin 1 tab PO DAILY 07/14/22 12/15/23 History citalopram 40 mg tablet (Celexa) 40 mg PO DAILY 30 days #30 tabs 03/08/23 04/16/24 Rx trazodone 100 mg tablet 100 mg PO QHS 08/09/23 04/15/24 History pantoprazole 40 mg tablet,delayed 40 mg PO BID #90 tabs 02/16/24 04/16/24 Rx release dicyclomine 10 mg capsule 10 mg PO BID #30 caps 02/22/24 Unknown Rx Allergy/AdvReac Type Severity Reaction Status Date / Time Iodinated Contrast Media Allergy Rash Verified 04/16/24 13:29 atorvastatin (From Lipitor) AdvReac Upset Verified 04/16/24 13:29 Stomach bupropion (From Wellbutrin) AdvReac Other Verified 04/16/24 13:29 paroxetine (From Paxil) AdvReac [place] poorly Verified 04/16/24 13:29 rosuvastatin (From Crestor) AdvReac Upset Verified 04/16/24 13:29 Stomach sertraline (From Zoloft) AdvReac Other Verified 04/16/24 13:29 simvastatin (From Zocor) AdvReac Upset Verified 04/16/24 13:29 Stomach Family History Mother Hypertension Father Hypertension Depression CVA (cerebral vascular accident) Bladder cancer Brother Cancer Surgical History Hx of colonoscopy Trigger finger of left thumb History of reverse total replacement of left shoulder joint H/O varicose vein ligation History of tonsillectomy and adenoidectomy History of hysterectomy Social History Smoking Status: Never smoker alcohol intake: current alcohol intake frequency: holidays/special occasions only substance use type: does not use Review of Systems (Anesthesia) ROS Narrative System reviewed and no additional complaints, except as documented.
--- NOTE | 2024-04-16 14:15 | EGD_PTH ---
PATIENT: ALISON HILTON LOC: EN U#:[id number] AGE/SX: 83/F ROOM: RE04/16/[address]: Dr. Willie Shook DO : 1940 BED: DIS: 04/16/2024 SPEC #: [id number] RECD: 04/17/24 07:23 STATUS: AKIRA RECaity #: [id number] ALMA DELIA: 04/16/24 14:[address]: Willie Shook DEPT: SURGICAL PATHOLOGY RECD BY: Bobby Rivas ENTERED: 04/17/24 09:23 SP TYPE: EGD BIOPSY OTHR DR: Eddie Waggoner MD Tissues: A - Duodenum, NOS B - Gastric mucous membrane C - Esophagus, NOS Procedures: Special Stain Group I Surgery Specimen Level IV Alcian Blue/PAS (control) HEADER OPERATION: EGD PRE-OP DIAGNOSIS: Heartburn, GERD TISSUE SUBMITTED: A- Duodenum biopsy, B- Gastric cardia, C- Distal esophagus biopsy MICROSCOPIC DIAGNOSIS A. Duodenum, biopsy: Fragments of duodenal mucosa, no pathologic diagnosis. B. Gastric cardia, biopsy: Mild to moderate gastritis. See microscopic description and comment. C. Distal esophagus, biopsy: Fragments of gastroesophageal mucosa with focal intestinal metaplasia (goblet cell metaplasia), consistent with Mccauley's esophagus. Chronic inflammation. Negative for dysplasia. See comment. 04/18/2024 COMMENT B. The results of immunohistochemistry for Helicobacter pylori will be reported separately ([id number]). C. Alcian blue/PAS stain with matched control is used in the evaluation of the specimen. Immunohistochemistry ([id number]) for P53 and Ki-67 will be performed, and results will be reported separately. This specimen predominantly consists of gastric mucosa. MICROSCOPIC DESCRIPTION Slides are reviewed. B. The specimen shows fragments of gastric mucosa with chronic inflammatory cell infiltrates in the lamina propria consisting of lymphocytes and plasma cells, consistent with mild to moderate chronic gastritis. GROSS DESCRIPTION A. Received in fixative is one container labeled with the patient's name and designated Duodenum biopsy. The specimen consists of two irregular fragments of light marshall soft tissue that in aggregate measure 0.4 x 0.3 x 0.1 cm. The specimen is totally submitted in one cassette. B. Received in fixative is one container labeled with the patient's name and designated Gastric cardia biopsy. The specimen consists of two irregular fragments of light marshall soft tissue that in aggregate measure 1 x 0.5 x 0.1 cm. The specimen is totally submitted in one cassette. C. Received in fixative is one container labeled with the patient's name and designated Distal esophagus biopsy. The specimen consists of two irregular fragments of light marshall soft tissue that in aggregate measure 0.6 x 0.4 x 0.1 cm. The specimen is totally submitted in one cassette. 04/17/2024 TC:3 CPT:07396y0,91000
--- NOTE | 2024-04-16 14:15 | IMM_PTH ---
PATIENT: ALISON HILTON LOC: EN U#:[id number] AGE/SX: 83/F ROOM: RE04/16/[address]: Dr. Willie Shook DO : 1940 BED: DIS: 04/16/2024 SPEC #: [id number] RECD: 04/17/24 09:23 STATUS: AKIRA RECaity #: [id number] ALMA DELIA: 04/16/24 14:[address]: Willie Shook DEPT: IMMUNOHISTOCHEMISTRY RECD BY: Kwame Vazquez ENTERED: 04/17/24 09:23 SP TYPE: IMMUNO OTHR DR: Eddie Waggoner MD Tissues: B - Gastric mucous membrane C - Esophagus, NOS Procedures: H Pylori (initial) P53 (initial) KI-67 (add) PHYSICIAN & INSTITUTION [place] [id number] SPECIMEN INFORMATION: Tissue Source: B- Gastric cardia biopsy, C- Distal esophagus biopsy Clinical Info: Heartburn, GERD Specimen Number: [id number] B,C CPT code: 72420s8,89830 METHODOLOGY: Deparaffinized sections of prefer/formalin-fixed tissue or PAP/DQ stained slides are incubated with monoclonal/polyclonal antibodies/oligonucleotide probes. Localization is made via biotin free immunoperoxidase method. Appropriate controls are performed and reacted as expected. Results on target cell population are indicated in the following table: RESULTS: ANTIBODY / CLONE RESULT Block B H Pylori (polyclonal) negative Block C P53 (DO-7) negative (null pattern) Ki-67 (30-9) positive, low These tests were developed and their performance characteristics determined by [facility]. They may not have been cleared or approved by the U.S. Food and Drug Administration. The FDA has determined that such clearance or approval is not necessary. The above immunohistochemical/dualISH markers are ordered and reviewed by the Pathologist. INTERPRETATION: B. Gastric cardia, biopsy: Negative for Helicobacter pylori organisms. C. Distal esophagus, biopsy: Negative for dysplasia. ARABELLA. 04/19/2024
--- NOTE | 2024-04-16 15:11 | PCM.HP.STD ---
HPI - General General Date of Admission: 04/16/24 Date of Service: 04/16/24 Chief Complaint: abdominal pain HPI Narrative ALISON HILTON, is a 83 F who presents for endoscopic evaluation of abdominal pain and black stools Chief Complaint: black tarry stools BGI established 11.27.23 w/ constipation and complaints of hemorrhoids. Takes miralax and dulcolax as needed. Some nausea in the mornings she feels is related to anxiety. Colonoscopy 12.19.23; Hemorrhoids found on perianal exam. - A single non-bleeding colonic angiodysplastic lesion. - External and internal hemorrhoids. Banded. - No specimens collected OV 02.16.24 Pt had colonoscopy with banding in December and feels this went well. SHe was having some constipation after the procedure but this has since resolved. Pt reports new symptoms of diffuse epigastric pain starting one week ago associated with intense nausea. This is new to her and she has never had this before. She also notes her stools are black and tarry. They are mostly loose but sometimes solid. SHe has no hx of heartburn. She was taking NSAIDs for knee pain daily for many months but did recently stop this. She feels weak and fatigued. [facility] Medical History Arthritis Gastric reflux Wears hearing aid Loss of hearing Wears glasses Depression Alcohol use Thyroid disease High cholesterol Easy bruising History of IBS Bleeding hemorrhoids Heartburn Non-smoker History of stress test History of echocardiogram Cardiology follow-up encounter Abnormal EKG Varicose veins of both lower extremities Thrombocytopenia Polyp of colon Hyperlipidemia Adjustment disorder Insomnia IBS (irritable bowel syndrome) Panic disorder Generalized anxiety disorder Major depressive disorder, recurrent severe without psychotic features Hypothyroid Hypertension Leukopenia Home Medications ?Medication ?Instructions ?Recorded ?Last Taken ?Type amlodipine 5 mg tablet 5 mg PO DAILY 07/14/22 04/16/24 History folic acid 1 mg tablet 1 mg PO DAILY 07/14/22 12/15/23 History glucosamine 750 [id number] 1 tab PO DAILY 07/14/22 04/15/24 History no1 644 mg-C 30 mg-liset 1 mg tablet (Osteo Bi-Flex Triple Strength) levothyroxine 137 mcg tablet 137 mcg PO DAILY 07/14/22 04/16/24 History multivitamin 1 tab PO DAILY 07/14/22 12/15/23 History citalopram 40 mg tablet (Celexa) 40 mg PO DAILY 30 days #30 tabs 03/08/23 04/16/24 Rx trazodone 100 mg tablet 100 mg PO QHS 08/09/23 04/15/24 History pantoprazole 40 mg tablet,delayed 40 mg PO BID #90 tabs 02/16/24 04/16/24 Rx release dicyclomine 10 mg capsule 10 mg PO BID #30 caps 02/22/24 Unknown Rx Allergy/AdvReac Type Severity Reaction Status Date / Time Iodinated Contrast Media Allergy Rash Verified 04/16/24 13:29 atorvastatin (From Lipitor) AdvReac Upset Verified 04/16/24 13:29 Stomach bupropion (From Wellbutrin) AdvReac Other Verified 04/16/24 13:29 paroxetine (From Paxil) AdvReac [place] poorly Verified 04/16/24 13:29 rosuvastatin (From Crestor) AdvReac Upset Verified 04/16/24 13:29 Stomach sertraline (From Zoloft) AdvReac Other Verified 04/16/24 13:29 simvastatin (From Zocor) AdvReac Upset Verified 04/16/24 13:29 Stomach Family History Mother Hypertension Father Hypertension Depression CVA (cerebral vascular accident) Bladder cancer Brother Cancer Surgical History Hx of colonoscopy Trigger finger of left thumb History of reverse total replacement of left shoulder joint H/O varicose vein ligation History of tonsillectomy and adenoidectomy History of hysterectomy Social History Smoking Status: Never smoker alcohol intake: current alcohol intake frequency: holidays/special occasions only substance use type: does not use ROS Constitutional Constitutional: Denies fatigue, fever(s), poor appetite, weight gain or weight loss Gastrointestinal Gastrointestinal: Denies belching, bloating, change in bowel habits, change in stool character, chewing difficulty, coffee ground emesis, constipation, cramping, diarrhea, dyspepsia, dysphagia, early satiety, excessive flatus, fecal incontinence, heartburn, hematemesis, hematochezia, hemorrhoids, loose stools, melena, nausea, odynophagia, rectal bleeding, tenesmus, vomiting or weight changes Vital Signs Vital Signs Vital Signs: 04/16/24 13:36 04/16/24 13:36 04/16/24 14:04 Temperature 98.6 F 98.6 F Temperature Source Temporal Pulse Rate 81 81 Respiratory Rate 16 16 Respiratory Pattern Normal Blood Pressure 157/80 H 157/80 H Blood Pressure Mean 105 Blood Pressure Source Monitor Blood Pressure Position Semi-Fowlers Blood Pressure Location Left Arm Pulse Ox 98 98 Oxygen Delivery Method Room Air Room Air Weight Weight: 156 lb 8.451 oz Body Mass Index (BMI) 25.2 Physical Exam Const alert, oriented x3, no apparent distress and healthy appearing General Appearance: cooperative GI normal to inspection, nondistended, normoactive bowel sounds, soft to palpation, non-tender and non-distended Percussion: normal to percussion Rectal Exam: deferred Assessment & Plan Assessment/Plan (1) Black stools: (2) Epigastric pain: PLAN: Plan Assessment and Plan Assessment and Plan (1) Diarrhea: (2) Epigastric pain: Status: Acute (3) Black stools: Status: Acute Plan: This is an 83 yo female pt here today for f/u after colonoscopy. Pt is having new epigastric pain, nausea and back tarry stool for one week. She has never had issues like this before. I have concern for gastric ulcer as she has been on NSAIDs daily for many months for knee pain. She will need to undergo EGD to assess her GI tract for inflammation in her esophagus and stomach. In the meantime, I will order blood work to check her hemoglobin for bleeding. Stool testing for occult blood ordered. She will start PPI therapy BID while we wait on the EGD -EGD -CBC, CMP, lipase -FOBT -Start pantoprazole BID Orders: Orders CBC W/Diff, Automated Today K92.1 - Melena Comprehensive Metabolic Profil Today R10.13 - Epigastric pain Lipase Today R10.13 - Epigastric pain Stool Occult Blood iFOB Today R10.13 - Epigastric pain Medications: New pantoprazole 40 mg PO BID 90 tabs 3RF
--- NOTE | 2024-04-16 15:18 | PCM.POST.ANE ---
Anesthesia: Postop Eval I Current Vital Signs Temperature: 97.9 F Pulse Rate: 71 Blood Pressure: 132/79 Respiratory Rate: 16 Pulse Ox: 97 Oxygen Delivery Method: Room Air Assessment Airway patent: Yes Spontaneous unlabored respirations: Yes Mental status: Awake and Calm nausea: No Vomiting: No Anesthesia Complication: No Fluid Hydration Crystalloid volume administer (ml): 30 Total IV fluid infused: 30 Progress Note Anesthesia document: Postop Eval 1 completed: Yes
--- NOTE | 2024-04-16 15:20 | OP.EGD_ITS ---
Patient Name: Socorro Santacruz Procedure Date: 04/16/2024 2:52 PM Date of : 1940 Age: 83 Procedure: Upper GI endoscopy Indications: Epigastric abdominal pain, Functional Dyspepsia, Suspected upper gastrointestinal bleeding Providers: Willie Shook DO Referring MD: Eddie Waggoner Md Medicines: Monitored Anesthesia Care Patient Profile: This is an 83 year old female. Refer to note in patient chart for documentation of history and physical. Patient has symptoms of acute epigastric abdominal pain, acute dyspepsia and acute nausea. Complications: No immediate complications. Procedure: Pre-Anesthesia Assessment: - Prior to the procedure, a History and Physical was performed, and patient medications and allergies were reviewed. The patient is competent. The risks and benefits of the procedure and the sedation options and risks were discussed with the patient. All questions were answered and informed consent was obtained. Patient identification and proposed procedure were verified by the physician in the pre-procedure area. Mental Status Examination: alert and oriented. Airway Examination: normal oropharyngeal airway and neck mobility. Respiratory Examination: clear to auscultation. CV Examination: normal. Prophylactic Antibiotics: The patient does not require prophylactic antibiotics. Prior Anticoagulants: The patient has taken no anticoagulant or antiplatelet agents. ASA Grade Assessment: III - A patient with severe systemic disease. After reviewing the risks and benefits, the patient was deemed in satisfactory condition to undergo the procedure. The anesthesia plan was to use monitored anesthesia care (MAC). Immediately prior to administration of medications, the patient was re-assessed for adequacy to receive sedatives. The heart rate, respiratory rate, oxygen saturations, blood pressure, adequacy of pulmonary ventilation, and response to care were monitored throughout the procedure. The physical status of the patient was re-assessed after the procedure. After obtaining informed consent, the endoscope was passed under direct vision. Throughout the procedure, the patient's blood pressure, pulse, and oxygen saturations were monitored continuously. The Endoscope was introduced through the mouth, and advanced to the second part of duodenum. The upper GI endoscopy was accomplished without difficulty. The patient tolerated the procedure well. Scope In: 3:04:33 PM Scope Out: 3:09:02 PM Total Procedure Duration Time 0 hours 4 minutes 29 seconds Findings: The Z-line was irregular and was found 40 cm from the incisors. Biopsies were taken with a cold forceps for histology. Verification of patient identification for the specimen was done. Estimated blood loss was minimal. Diffuse nodular mucosa was found in the entire examined stomach. Biopsies were taken with a cold forceps for histology. Verification of patient identification for the specimen was done. Estimated blood loss was minimal. No gross lesions were noted in the first portion of the duodenum. Biopsies were taken with a cold forceps for histology. Verification of patient identification for the specimen was done. Estimated blood loss was minimal. Impression: - Z-line irregular, 40 cm from the incisors. Biopsied. - Nodular mucosa in the entire stomach. Biopsied. - No gross lesions in the first portion of the duodenum. Biopsied. Recommendation: - Discharge patient to home. - Resume previous diet today. - Continue present medications. - Await pathology results. Procedure Code(s): --- Professional --- 88919, Esophagogastroduodenoscopy, flexible, transoral; with biopsy, single or multiple CPT copyright 2021 [employer]. All rights reserved. The codes documented in this report are preliminary and upon certified professional coder review may be revised to meet current compliance requirements. Willie Shook DO 04/16/2024 3:20:24 PM This report has been signed electronically. Number of Addenda: 0 Note Initiated On: 04/16/2024 2:52 PM
--- NOTE | 2024-04-16 15:20 | OP.CCLET_ITS ---
04/16/2024 Eddie Waggoner Md Re : Upper GI endoscopy procedure for Socorro Santacurz Dear [place] This procedure was performed on Tuesday, April 16, 2024. My impressions and recommendations are as follows: Impressions : - Z-line irregular, 40 cm from the incisors. Biopsied. - Nodular mucosa in the entire stomach. Biopsied. - No gross lesions in the first portion of the duodenum. Biopsied. Recommendations : - Discharge patient to home. - Resume previous diet today. - Continue present medications. - Await pathology results. My findings are described in the full procedure note, which is enclosed. If I can be of further assistance, please feel free to contact me at . Sincerely, Willie Shook, 04/16/2024 3:20:24 PM This report has been signed electronically.
--- NOTE | 2024-04-16 18:31 | PCM.POSTANE2 ---
Anesthesia Postop Eval I Sum Postop Eval Completion status Anesthesia document: Postop Eval 1 completed: Yes Anesthesia Postop Eval I Summary Anesthesia Postop Eval I Summary: Anesthesia Postop Eval I: Assessment Summary Airway patent Yes 04/16/24 15:19 [email or web address] Spontaneous unlabored Yes 04/16/24 15:19 [email or web address] respirations Mental status Awake,Calm 04/16/24 15:19 [email or web address] nausea No 04/16/24 15:19 [email or web address] Vomiting No 04/16/24 15:19 [email or web address] Anesthesia Postop Eval I: Fluid Summary Crystalloid volume administer 30 04/16/24 15:19 [email or web address] (ml) Colloids volume administered ( ml) Blood Product volume administered (ml) Total IV fluid infused 30 04/16/24 15:19 [email or web address] Anesthesia Postop Eval I: Summary Notes Anesthesia Complication No 04/16/24 15:19 [email or web address] Anesthesia Complication Comment: Post-operative progress note Anesthesia: Postop Eval II Evaluation Mental status: Awake and Calm Pain Level: 0 nausea: No Vomiting: No Complications Anesthesia Complication: No
== END 2024-04-16 15:45 | disposition home or self-care (01) ==
LOC: EN 13:13 → AC 13:18
PROVIDERS: PCP Family Medicine; Referring Provider Family Medicine; Visit Provider Internal Medicine Gastroenterology
PROC: 0DJ08ZZ Inspection of Upper Intestinal Tract, Via Natural or Artificial Opening Endoscopic (ICD-10-PCS; CPT 43235; principal; 2024-04-16 14:10)
DX: R10.13 Epigastric pain (principal); I10 Essential (primary) hypertension; R19.7 Diarrhea, unspecified; E78.00 Pure hypercholesterolemia, unspecified; R19.5 Other fecal abnormalities; Z79.899 Other long term (current) drug therapy; E03.9 Hypothyroidism, unspecified; Z79.890 Hormone replacement therapy; K21.9 Gastro-esophageal reflux disease without esophagitis; F32.A Depression, unspecified; K22.89 Other specified disease of esophagus; K31.89 Other diseases of stomach and duodenum; K29.70 Gastritis, unspecified, without bleeding; K31.A0 Gastric intestinal metaplasia, unspecified
CPT/HCPCS: 43239; 88305; 88312; 88341; 88342; A4216; J2405

== ENCOUNTER → 2024-04-22 | Outpatient (CLI) | payer MEDICARE, OTHER, SELFPAY | END | disposition home or self-care (01) | LOC: MFPLAB 11:17 | PROVIDERS: PCP Family Medicine; Referring Provider Family Medicine; Visit Provider Family Medicine | DX: E03.9 Hypothyroidism, unspecified (principal) | CPT/HCPCS: 36415; 84443 ==

== ENCOUNTER → 2024-05-30 | Outpatient (CLI) | payer MEDICARE, OTHER, SELFPAY ==
--- NOTE | 2024-05-30 11:46 | RAD_ITS ---
EXAM: XR Abdomen, 1 View CLINICAL INDICATION: LEFT FLANK PAIN TECHNIQUE: Frontal supine view of the abdomen/pelvis. COMPARISON: No relevant prior studies available. FINDINGS: GASTROINTESTINAL TRACT: Fecal retention in the colon consistent with constipation. No dilation. BONES/JOINTS: S shaped scoliosis of the thoracolumbar spine without multilevel degenerative changes. No acute fracture. RAD/Abd Inc Decub and/or Erect IMPRESSION: Fecal retention in the colon consistent with constipation. Reading Location: [facility]
== END | disposition home or self-care (01) ==
LOC: MTRAD 11:46
PROVIDERS: PCP Family Medicine; Referring Provider Family Medicine; Visit Provider Family Medicine
DX: R10.9 Unspecified abdominal pain (principal)
CPT/HCPCS: 74019

== ENCOUNTER → 2024-05-31 | Outpatient (CLI) | payer MEDICARE, OTHER, SELFPAY ==
[2024-05-31 10:46] LABS: Absolute Lymphocyte Count 0.99 X10^3/uL (0.83-4.51); Absolute Neutrophil Count 1.6 X10^3/uL (2.0-7.7); Basophil# 0.05 X10^3/uL; Basophil% 1.6 % (0-1); Eosinophil# 0.23 X10^3/uL; Eosinophils% 7.2 % (0-5); Hematocrit 37.2 % (37-47); Hemoglobin 12.9 g/dL (12.0-15.0); Lymphocyte # 0.99 X10^3/ul (0.83-4.51); Lymphocyte % 31.1 % (19-41); Mean Corp Hgb Conc 34.7 g/dL (32-36); Mean Corpuscular Hgb 30.6 pg (27.0-32.0); Mean Corpuscular Volume 88.4 fL (81-99); Mean Platelet Vol. 8.7 fl (6.2-12.0); Monocyte# 0.32 X10^3/uL; Monocyte% 10.1 % (0-10); NRBC Flagged by Analyzer 0 % (0-5); Neutrophil # 1.57 X10^3/uL (2.7-7.7); Neutrophil % 49.4 % (47-70); Platelet Count 178 K/mm3 (150-450); RBC Distribution Width SD 38.6 fl (35.1-43.9); Red Blood Count 4.21 M/mm3 (4.2-5.4); White Blood Count 3.2 K/mm3 (4.4-11.0)
[2024-05-31 11:12] LABS: Lipase 26 U/L (13-75)
[2024-05-31 11:30] LABS: BUN 14 mg/dL (4-19); Creatinine, Serum 0.85 mg/dL (0.70-1.20); Glucose 97 mg/dL (70-99)
[2024-05-31 11:31] LABS: AST(SGOT) 21 U/L (<=31); Alanine Aminotransfer ALT/SGPT 15 U/L (<=34); Albumin, Serum 4.6 g/dL (3.4-4.8); Alkaline Phosphatase 70 U/L (35-104); Anion Gap 15 (5-15); BUN/Creat Ratio 16.8 RATIO (10-20); Calcium,Total 9.5 mg/dL (7.6-11.0); Carbon Dioxide 22.3 mmol/L (21.0-32.0); Chloride 103 mmol/L (98-108); EST Glomerular Filtration Rate 67 (>60); Globulin 2.3 g/dL (2.2-4.2); Potassium 4.1 mmol/L (3.3-5.1); Protein, Total 6.9 g/dL (5.9-8.4); Sodium Level 140 mmol/L (133-145); Total Bilirubin 0.94 mg/dL (0.00-1.30)
== END | disposition home or self-care (01) ==
PROVIDERS: PCP Family Medicine; Referring Provider Student in an Organized Health Care Education/Training Program; Visit Provider Student in an Organized Health Care Education/Training Program
DX: K59.00 Constipation, unspecified (principal); R10.13 Epigastric pain
CPT/HCPCS: 36415; 80053; 82274; 83690; 85025

== ENCOUNTER → 2024-06-20 | Outpatient (CLI) | payer MEDICARE, OTHER, SELFPAY ==
--- NOTE | 2024-06-20 17:55 | CT_ITS ---
PROCEDURE: ABDOMEN/PELVIS WITH CONTRAST 06/20/2024 REASON FOR EXAM: ABDOMINLA BLOATING AND PAIN TECHNIQUE: Abdomen and pelvis CT with intravenous contrast. Coronal and Sagittal reconstruction series were provided. PATIENT PREPARATION: Per protocol ORAL CONTRAST TYPE: AMOUNT: 500 mL CONTRAST: Isovue-350 VOLUME: 100 mL. One or more dose reduction techniques were used (e.g., Automated exposure control, adjustment of the mA and/or kV according to patient size, use of iterative reconstruction technique. RADIATION DOSE SUMMARY: CTDlvol: 11.4 mGy DLP: 553 mGycm COMPARISON: 1. CT scan on 01/17/2023. 2. Radiographs on 05/30/2024. FINDINGS: Bilateral basilar atelectatic pulmonary changes. Unchanged 1 cm calcified granuloma in the right lower lobe. Small sliding hiatal hernia, unchanged. Moderate gastroparesis. No CT evidence of bowel obstruction. Interposition of the colon between the stomach and the anterior abdominal wall which is probably secondary to an internal hernia without incarceration, unchanged. Prior hysterectomy. Moderate amount of fecal residue in the large bowels, slight increased. Scattered calcified splenic granulomas. Cystocele is again noted. Mild diffuse thickening of the wall of the bladder. Chronic bladder outlet obstruction versus mild cystitis. Moderate diffuse spondylosis. Normal liver. Normal gallbladder and extrahepatic biliary system. Normal spleen. Normal pancreas. Normal bilateral adrenal glands. Normal size of the right kidney. There is no right renal mass. There are no right renal calculi. There is no right hydronephrosis. Normal visualized right ureter. Normal size of the left kidney. There is no left renal mass. There are no left renal calculi. There is no left hydronephrosis. Normal visualized left ureter. Normal small intestine. The appendix is visualized and appears normal. There is no demonstrated peritoneal fluid. Calcified atheromatous plaques of the abdominal aorta. Normal inferior vena cava. Normal retroperitoneum. There is no pelvic mass lesion or lymphadenopathy. There is no pelvic fluid. Normal abdominal wall. CT/Abdomen/Pelvis WITH Contrast IMPRESSION: 1. Bilateral basilar atelectatic pulmonary changes. 2. Unchanged 1 cm calcified granuloma in the right lower lobe. 3. Small sliding hiatal hernia, unchanged. 4. Moderate gastroparesis. 5. No CT evidence of bowel obstruction. 6. Interposition of the colon between the stomach and the anterior abdominal wa ll which is probably secondary to an internal hernia without incarceration, unchanged. 7. Prior hysterectomy. 8. Moderate amount of fecal residue in the large bowels, slight increased. 9. Scattered calcified splenic granulomas. 10. Cystocele is again noted. 11. Mild diffuse thickening of the wall of the bladder. Chronic bladder outlet obstruction versus mild cystitis. 12. Moderate diffuse spondylosis. Reading Location: [facility] [id number]
== END | disposition home or self-care (01) ==
LOC: CT 17:43
PROVIDERS: PCP Family Medicine; Referring Provider Student in an Organized Health Care Education/Training Program; Visit Provider Student in an Organized Health Care Education/Training Program
DX: R10.13 Epigastric pain (principal); K59.00 Constipation, unspecified
CPT/HCPCS: 74177; Q9967

== ENCOUNTER → 2024-07-30 | Outpatient (CLI) | payer MEDICARE, OTHER, SELFPAY ==
--- NOTE | 2024-07-30 09:55 | RAD_ITS ---
PROCEDURE: SHOULDER MIN 2 VIEWS 07/30/2024 REASON FOR EXAM: SHOULDER PAIN X 1 MONTH, NO INJURY TECHNIQUE: Four views right shoulder COMPARISON: None available FINDINGS: No fracture or dislocation. Mild glenohumeral joint osteoarthrosis. [id number] acromioclavicular joint osteoarthrosis with a downward directed osteophyte at the distal clavicle suggested. Visualized right lung appears clear. RAD/Shoulder min 2 Views IMPRESSION: Osteoarthrosis as above. Reading Location: [id number]
== END | disposition home or self-care (01) ==
PROVIDERS: PCP Family Medicine; Referring Provider Family Medicine; Visit Provider Family Medicine
DX: M25.511 Pain in right shoulder (principal)
CPT/HCPCS: 73030

== ENCOUNTER 2024-10-06 13:12 | Emergency (ER) | payer MEDICARE, OTHER, SELFPAY ==
[2024-10-06 13:13] VITALS: BP 137/77; PULSE 83; RESP 16; TEMP 36.9; O2SAT 98; BMI 25.7
--- NOTE | 2024-10-06 13:37 | CT_ITS ---
PROCEDURE: ABDOMEN/PELVIS W IV CONT ONLY 10/06/2024 REASON FOR EXAM: ABDOMINAL PAIN TECHNIQUE: ABDOMEN/PELVIS W IV CONT ONLY Coronal and Sagittal reconstruction series were provided. CONTRAST: Isovue 370 VOLUME: 100 mL One or more dose reduction techniques were used (e.g., Automated exposure control, adjustment of the mA and/or kV according to patient size, use of iterative reconstruction technique. RADIATION DOSE SUMMARY: CTDlvol: 17.19 mGy DLP: 822.41 mGycm COMPARISON: CT 01/17/2023 and 06/20/2024 FINDINGS: Lung bases: Calcified granuloma right lung base. Lungs are otherwise clear. Liver: Unremarkable Gallbladder: Normal Spleen: Calcified granuloma, otherwise normal Pancreas: Possible chronic pancreatitis Adrenals: Normal Kidneys: Normal Bladder: Normal Reproductive Organs: Post hysterectomy Bowel: Normal caliber and appearance Appendix: No appendicitis identified. Lymph nodes: No adenopathy Vasculature: Mild scattered calcific plaque in the aorta Peritoneum / Retroperitoneum: No free fluid, no free air. Bones: Multilevel degenerative disc disease and endplate spondylosis. No aggressive bone process. CT/Abdomen/Pelvis W IV Cont ONLY IMPRESSION: No acute process detected. Other findings as above. Reading Location[facility]
[2024-10-06 13:54] LABS: Hematocrit 34.6 % (37-47); Hemoglobin 12.0 g/dL (12.0-15.0); Immature Granulocytes Count 0.020 X10^3/uL (0.0-0.0); Mean Corp Hgb Conc 34.7 g/dL (32-36); Mean Corpuscular Volume 89.2 fL (81-99); Mean Platelet Vol. 8.3 fl (6.2-12.0); NRBC Flagged by Analyzer 0 % (0-5); Platelet Count 170 K/mm3 (150-450); RBC Distribution Width CV 11.9 % (11.6-14.6); RBC Distribution Width SD 38.3 fl (35.1-43.9); Red Blood Count 3.88 M/mm3 (4.2-5.4); White Blood Count 4.3 K/mm3 (4.4-11.0)
--- OUTSIDE RECORDS SUMMARY | 2024-10-06 14:01 | XMS RPT_ITS | CCD ---
Author Organization [facility]ini[facility] Care Team Providers Care [employer] Consultant Name Role Phone DO Roxanna Lemus Primary Care Provider Radha Ascencio Attending Provider Unavailabl e DO Roxanna Lemus Referring Provider [phone] Dr. Vernon Garrett Attending Provider Rosaline, Chalon Primary Care Unavailable Rajwinder Luis Referring Unavailable Rajwinder Luis Attending Unavailable Rosaline, Chalon Primary Care Unavailable Rajwinder Luis Attending Unavailable BladimirnasRajwinder calderon Referring Unavailable Rosaline, Chalon Primary Care Unavailable Rosaline, Chalon Referring Unavailable Marii Perales NP Attending Unavailable Rosaline, Chalon Referring Unavailable Friend, Willie Consulting Unavailable Rosaline, Chalon Primary Care Unavailable Friend, Willie Attending Unavailable Rosaline, Chalon Primary Care Unavailable Friend, Willie Attending Unavailable Friend, Willie Consulting Unavailable Rosaline, Chalon Referring Unavailable Rosaline, Chalon Primary Care Unavailable Rosaline, Chalon Referring Unavailable AtanasRajwinder calderon Attending Unavailable Rosaline, Chalon Referring Unavailable Rosaline, Chalon Primary Care Unavailable BladimirnasRajwinder calderon Attending Unavailable Rosaline, Chalon Primary Care Unavailable AtanasovRajwinder Attending Unavailable Rosaline, Chalon Referring Unavailable Rosaline, Chalon Primary Care Unavailable Rosaline, Chalon Referring Unavailable AtanasovRajwinder Attending Unavailable Rosaline, Chalon Referring Unavailable Rosaline, Chalon Attending Unavailable Rosaline, Chalon Primary Care Unavailable Rosaline, Chalon Primary Care Unavailable SadiTimun K Referring Unavailable SadiTimun K Attending Unavailable Rosaline, Chalon Attending Unavailable Rosaline, Chalon Primary Care Unavailable Rosaline, Chalon Primary Care Unavailable Rajwinder Luis Referring Unavailable Rajwinder Luis Attending Unavailable Rosaline, Chalon Primary Care Unavailable Rosaline, Chalon Referring Unavailable Rosaline, Chalon Attending Unavailable Rosaline, Chalon Primary Care Unavailable Friend, Willie Attending Unavailable Rosaline, Chalon Referring Unavailable Rosaline, Chalon Referring Unavailable Rosaline, Chalon Primary Care Unavailable Friend, Willie Attending Unavailable Rosaline, Chalon Primary Care Unavailable Rosaline, Chalon Referring Unavailable Rosaline, Chalon Attending Unavailable Unavailable Primary Care Provider Unavailabl e Allergies Allergy Classification Reported Allergen(s) Allergy Type Date of Onset Reaction(s) Facility (3 sources) Triiodobenzoic Acids Allergy to substance 06-30-19 23 Rash [facility] (2 sources) atorvastatin Drug Allergy 07-26-19 Upset Stomach [facility] (2 sources) PARoxetine Drug Allergy 07-26-19 Alicia poorly [facility] (2 sources) rosuvastatin Drug Allergy 07-26-19 Upset Stomach [facility] (2 sources) Simvastatin Drug Allergy 07-26-19 Upset Stomach [facility] (1 source) atorvastatin Drug Allergy 04-16-19 [facility] (1 source) buPROPion Drug Allergy 04-16-19 [facility] (1 source) PARoxetine Drug Allergy 04-16-19 [facility] (1 source) rosuvastatin Drug Allergy 04-16-19 [facility] (1 source) Sertraline Drug Allergy 04-16-19 [facility] (1 source) Simvastatin Drug Allergy 04-16-19 [facility] (1 source) Iodinated Contrast Media Drug allergy (disorder) 04-16-19 [facility] (1 source) HMG-CoA reductase inhibitor Drug Intolerance 10-06-19 Intolerance [facility] Medications Current Medications Medication Drug Class(es) Dates Sig (Normalized) Sig (Original) amitriptyline hydrochloride 50 mg oral tablet (5 sources) Tricyclic Antidepressant Start: 07-04-2016 take 50 mg by mouth at bedtime Amitriptyline Active 50 MG PO AT BEDTIME July 03, 2016 11:00pm amLODIPine 5 mg oral tablet (3 sources) Dihydropyridine Calcium Channel Marco Antonio Start: 08-08-2024 amLODIPine (NORVASC) 5 mg tablet 08/08/2024 Active Start: 07-14-2022 take 5 mg by mouth once daily Amlodipine Active 5 MG PO DAILY July 13, 2022 11:00pm bromfenac 0.75 mg/ml ophthalmic solution (1 source) Nonsteroidal Anti-inflammatory Drug Start: 04-25-2024 take 1 drop(s) into the eye(s) once daily bromfenac (BROMSITE) 0.075 % drop INSTILL 1 DROP IN RIGHT EYE DAILY. USE DAILY IN OPERATIVE EYE 3 DAYS PRIOR TO SURGERY AND DAILY AFTER SURGERY 04/25/2024 Active busPIRone hydrochloride 10 mg oral tablet (1 source) Start: 07-12-2024 busPIRone (BUSPAR) 10 mg tablet 07/12/2024 Active cholecalciferol 0.125 mg oral capsule (5 sources) Vitamin D Start: 07-04-2016 take 5000 [IU] by mouth once daily Cholecalciferol (Vitamin D3) Active 5000 UNIT PO DAILY July 03, 2016 11:00pm citalopram 40 mg oral tablet (6 sources) Serotonin Reuptake Inhibitor Start: 07-20-2024 citalopram (CELEXA) 40 mg tablet 07/20/2024 Active Start: 07-04-2016 take 20 mg by mouth once daily Citalopram Active 20 MG PO DAILY July 03, 2016 11:00pm fluorometholone 1 mg/ml ophthalmic suspension (1 source) Corticosteroid Start: 06-29-2024 fluorometholone (FML LIQUID FILM) 0.1 % ophthalmic suspension 06/29/2024 Active folic acid 1 mg oral tablet (2 sources) Start: 07-14-2022 take 1 mg by mouth once daily Folic Acid Active 1 MG PO DAILY July 13, 2022 11:00pm Rcvfwydz-Zxsf-Rtl2-C- Liset-Bosw (Osteo Bi-Flex Triple Strength) 1 EACH tablet (5 sources) Start: 07-04-2016 take 1 tablet by mouth once daily Yxjorrjd-Lzka-Bwk9-C- Liset-Bosw (Osteo Bi-Flex Triple Strength) 1 EACH tablet Active 2 EACH PO DAILY July 04, 2016 10:20am Start: 07-04-2016 End: 07-14-2022 take 1 tablet by mouth once daily Zjjbnknu-Wtkx-Usa3-C-Liset-Bosw (Osteo Bi -Flex Triple Strength) 1 EACH tablet Discontinued 2 EACH PO DAILY July 03, 2016 11:00pm July 14, 2022 7:42am Start: 07-04-2016 End: 07-14-2022 take 1 tablet by mouth once daily Ucqxuurr-Qlhn-Cem5-C-Liset-Bosw (Osteo Bi -Flex Triple Strength) 1 EACH tablet Discontinued 2 EACH PO DAILY July 04, 2016 12:00am July 14, 2022 8:42am Start: 07-04-2016 take 1 tablet by edna th once daily Jrpvxhvb-Sjhe-Ujb4-C-Liset-Bosw (Osteo Bi -Flex Triple Strength) 1 EACH tablet Active 2 EACH PO DAILY July 04, 2016 12:00am Xepuuyca-Jmoz-Eau5-C-Liset-Osmany sw (Osteo Bi-Flex Triple Strength) 750 mg-644 mg- 30 mg-1 mg tablet (2 sources) Start: 07-14-2022 take 1 tablet by mouth once daily Mzvdxjpc-Dnyf-Xwr4-C-Liset-Bosw (Osteo Bi-Flex Triple Strength) 750 mg-644 mg- 30 mg-1 mg tablet Active 1 TABLET PO DAILY July 14, 2022 7:40am Start: 07-14-2022 take 1 tablet by edna th once daily Eqiydrxc-Gney-Uuo6-C-Liset-Bosw (Osteo Bi -Flex Triple Strength) 750 mg-644 mg- 30 mg-1 mg tablet Active 1 TABLET PO DAILY July 14, 2022 8:40am levothyroxine sodium 0.137 mg oral tablet (8 sources) l-Thyroxine Start: 09-10-2024 levothyroxine (SYNTHROID) 137 mcg tablet 09/10/2024 Active Start: 07-14-2022 take 137 ug by mouth once daily Levothyroxine Active 137 MCG PO DAILY July 13, 2022 11:00pm Start: 07-04-2016 End: 07-14-2022 take 100 ug by mouth once daily Levothyroxine Discontinued 100 MCG PO DAILY July 03, 2016 11:00pm July 14, 2022 7:39am linaclotide 0.072 mg oral capsule (1 source) Guanylate Cyclase-C Agonist Start: 08-05-2024 LINZESS 72 mcg capsule 08/05/2024 Active lutein 20 mg oral capsule (5 sources) Start: 07-04-2016 take 20 mg by mouth once daily Lutein Active 20 MG PO DAILY July 03, 2016 11:00pm Multivitamin preparation (2 sources) Start: 07-14-2022 take 1 tablet by mouth once daily Multivitamin Active 1 TABLET PO DAILY July 13, 2022 11:00pm Start: 07-14-2022 take 1 tablet by edna once daily Multivitamin Active 1 TABLET PO DAILY July 14, 2022 12:00am [place] 2-Use-Poi-Fish Oil (Fish Oil) 60-90-500 mg capsule (2 sources) Start: 07-14-2022 take 1 capsule by mouth once daily [place] 9-Rdu-Dgl-Fish Oil (Fish Oil) 60-90-500 mg capsule Active 1 CAP PO DAILY July 13, 2022 11:00pm Start: 07-14-2022 take 1 capsule by mo [facility] once daily [place] 6-Kea-Hpk-Fish Oil (Fish Oil) 60-90-500 mg capsule Active 1 CAP PO DAILY July 14, 2022 12:00am ondansetron 4 mg disintegrating oral tablet (1 source) Serotonin-3 Receptor Antagonist Start: 10-05-2024 End: 10-08-2024 take 1 tablet by mouth every eight hours as needed for nausea and nausea ondansetron orally disintegrating (ZOFRAN ODT) 4 mg disintegrating tablet Indications: Nausea Take 1 tablet by mouth every 8 hours as needed for nausea/vomiting for up to 3 days. 9 tablet 10/05/2024 10/08/2024 Active pantoprazole 40 mg delayed release oral tablet (1 source) Proton Pump Inhibitor Start: 07-26-[address] (PROTONIX) 40 mg tablet 07/26/2024 Active traZODone hydrochloride 100 mg oral tablet (1 source) Serotonin Reuptake Inhibitor Start: 09-17-2024 traZODone (DESYREL) 100 mg tablet 09/17/2024 Active Completed/Discontinued Medications Medication Drug Class(es) Dates Sig (Normalized) Sig (Original) acetaminophen 500 mg oral tablet (10 sources) Start: 07-21-2016 End: 07-14-2022 take 1000 mg by mouth every eight hours Acetaminophen Discontinued 1000 MG PO EVERY 8 HOURS July 20, 2016 11:00pm July 14, 2022 7:41am Start: 07-04-2016 End: 07-21-2016 take 2 tablets by mouth at dinner Acetaminophen (Tylenol Extra Strength) 500 MG tablet Discontinued 1000 MG PO WITH DINNER July 03, 2016 11:00pm July 21, 2016 5:38am aspirin 81 mg chewable tablet (5 sources) Platelet Aggregation Inhibitor, Nonsteroidal Anti-inflammatory Drug Start: 07-21-2016 End: 07-14-2022 take 81 mg by mouth once daily Aspirin Discontinued 81 MG PO DAILY@0800 July 20, 2016 11:00pm July 14, 2022 7:41am atorvastatin 20 mg oral tablet (5 sources) HMG-CoA Reductase Inhibitor Start: 07-04-2016 End: 07-14-2022 take 20 mg by mouth at bedtime Atorvastatin Discontinued 20 MG PO AT BEDTIME July 03, 2016 11:00pm July 14, 2022 7:42am docusate sodium 50 mg / sennosides, long term 8.6 mg oral tablet (10 sources) Start: 07-21-2016 End: 07-14-2022 Sennosides-Docusa te Sodium (Stool Softener-Stimulan t Laxat) 1 TABLET tablet Discontinued 2 TABLET PO TWICE DAILY NEEDED July 21, 2016 5:41am July 14, 2022 7:42am TAKE UNTIL FIRST BOWEL MOVEMENT, THEN NEEDED etodolac 500 mg oral tablet (5 sources) Nonsteroidal Anti-inflammatory Drug Start: 07-04-2016 End: 07-14-2022 take 500 mg by mouth once daily Etodolac Discontinued 500 MG PO DAILY July 03, 2016 11:00pm July 14, 2022 7:42am famotidine 20 mg oral tablet (10 sources) Histamine-2 Receptor Antagonist Start: 07-21-2016 End: 07-14-2022 take 20 mg by mouth once daily Famotidine Discontinued 20 MG PO DAILY July 21, 2016 5:41am July 14, 2022 7:42am oxyCODONE hydrochloride 5 mg oral tablet (10 sources) Opioid Agonist Start: 07-21-2016 End: 07-14-2022 take 5-10 mg by mouth every four hours as needed Oxycodone Discontinued 5 - 10 MG PO EVERY 4 HOURS NEEDED July 21, 2016 5:41am July 14, 2022 7:42am Problems Active Problems Problem Classification Problem Date Documented Da te Episodic/Chronic Diseases of white blood cells (4 sources) Leukopenia; Translations: [Decreased white blood cell count, unspecified] 07-25-2022 Chronic Essential hypertension (1 source) Essential (primary) hypertension; Translations: [Essential (primary) hypertension] Onset: 11-10-2023 Chronic Influenza (1 source) Influenza-like illness; Translations: [Influenza due to unidentified influenza virus with other respiratory manifestations] 10-05-2024 Episodic Nausea and vomiting (2 sources) Nausea; Translations: [Nausea] 10-05-2024 Episodic Other non-traumatic joint disorders (1 source) Pain in right shoulder; Translations: [Pain in right shoulder] Onset: 08-06-2024 Episodic Other upper respiratory infections (1 source) Other chronic sinusitis; Translations: [Other chronic sinusitis] Onset: 01-19-2024 Chronic Thyroid disorders (1 source) Hypothyroidism, unspecified; Translations: [Hypothyroidism, unspecified] Onset: 06-11-2024 Chronic Past or Other Problems Problem Classification Problem Date Documented Da te Episodic/Chronic Abdominal pain (3 sources) Epigastric pain; Translations: [Unspecified abdominal pain] Onset: 05-01-2024 Episodic Gastrointestinal hemorrhage (2 sources) Melena; Translations: [Melena] Onset: 03-21-2024 Episodic Hemorrhoids (2 sources) Second degree hemorrhoids; Translations: [Unspecified hemorrhoids] Onset: 11-27-2023 Episodic Other gastrointestinal disorders (1 source) Constipation, unspecified; Translations: [Constipation, unspecified] Onset: 06-04-2024 Episodic Results Test Name Value Interpretation Reference Range Facility Shoulder min 2 Viewson 07-30 Shoulder min 2 Views [facility] Imaging Services [address] [place] [address] Shoulder min 2 Views MR#: [id number] Acct: [id number] Name: ALISON SANTACRUZ Rep #: [id number] : [id number] F [id number] From: Zbigniew Martinez MD PCP: Dr. Eddie Waggoner MD Status: REG CLI Study: Shoulder min 2 Views Date of Exam: 07/30/24 Exam# [id number] Ordering Dr: Eddie Waggoner MD PROCEDURE: SHOULDER MIN 2 VIEWS 07/30/2024 REASON FOR EXAM: SHOULDER PAIN X 1 MONTH, NO INJURY TECHNIQUE: Four views right shoulder COMPARISON: None available FINDINGS: No fracture or dislocation. Mild glenohumeral joint osteoarthrosis. Bjox-gu-ddmtrwhg acromioclavicular joint osteoarthrosis with a downward directed osteophyte at the distal clavicle suggested. Visualized right lung appears clear. RAD/Shoulder min 2 Views IMPRESSION: Osteoarthrosis as above. Reading Location: [id number] CC: Dr. Eddie Waggoner MD Job Placement Counselor: Signed Normal [facility] Abdomen/Pelvis WITH Contrast on 06-20-2024 Abdomen/Pelvis WITH Contrast [facility] Imaging Services [address] [place] [id number] Abdomen/Pelvis WITH Contrast MR#: [id number] Acct: [id number] Name: ALISON SANTACRUZ Rep #: [id number] : [id number] F [id number] From: Celia lance MD PCP: Dr. Eddie Waggoner MD Status: REG CLI Study: Abdomen/Pelvis WITH Contrast Date of Exam: Exam# [id number] Ordering Dr: Rajwinder Luis PROCEDURE: ABDOMEN/PELVIS WITH CONTRAST 06/20/2024 REASON FOR EXAM: ABDOMINLA BLOATING AND PAIN TECHNIQUE: Abdomen and pelvis CT with intravenous contrast. Coronal and Sagittal reconstruction series were provided. PATIENT PREPARATION: Per protocol ORAL CONTRAST TYPE: AMOUNT: 500 mL CONTRAST: Isovue-350 VOLUME: 100 mL. One or more dose reduction techniques were used (e.g., Automated exposure control, adjustment of the mA and/or kV according to patient size, use of iterative reconstruction technique. RADIATION DOSE SUMMARY: CTDlvol: 11.4 mGy DLP: 553 mGycm COMPARISON: 1. CT scan on 01/17/2023. 2. Radiographs on 05/30/2024. FINDINGS: Bilateral basilar atelectatic pulmonary changes. Unchanged 1 cm calcified granuloma in the right lower lobe. Small sliding hiatal hernia, unchanged. Moderate gastroparesis. No CT evidence of bowel obstruction. Interposition of the colon between the stomach and the anterior abdominal wall which is probably secondary to an internal hernia without incarceration, unchanged. Prior hysterectomy. Moderate amount of fecal residue in the large bowels, slight increased. Scattered calcified splenic granulomas. Cystocele is again noted. Mild diffuse thickening of the wall of the bladder. Chronic bladder outlet obstruction versus mild cystitis. Moderate diffuse spondylosis. Normal liver. Normal gallbladder and extrahepatic biliary system. Normal spleen. Normal pancreas. Normal bilateral adrenal glands. Normal size of the right kidney. There is no right renal mass. There are no right renal calculi. There is no right hydronephrosis. Normal visualized right ureter. Normal size of the left kidney. There is no left renal mass. There are no left renal calculi. There is no left hydronephrosis. Normal visualized left ureter. Normal small intestine. The appendix is visualized and appears normal. There is no demonstrated peritoneal fluid. Calcified atheromatous plaques of the abdominal aorta. Normal inferior vena cava. Normal retroperitoneum. There is no pelvic mass lesion or lymphadenopathy. There is no pelvic fluid. Normal abdominal wall. CT/Abdomen/Pelvis WITH Contrast IMPRESSION: 1. Bilateral basilar atelectatic pulmonary changes. 2. Unchanged 1 cm calcified granuloma in the right lower lobe. 3. Small sliding hiatal hernia, unchanged. 4. Moderate gastroparesis. 5. No CT evidence of bowel obstruction. 6. Interposition of the colon between the stomach and the anterior abdominal wall which is probably secondary to an internal hernia without incarceration, unchanged. 7. Prior hysterectomy. 8. Moderate amount of fecal residue in the large bowels, slight increased. 9. Scattered calcified splenic granulomas. 10. Cystocele is again noted. 11. Mild diffuse thickening of the wall of the bladder. Chronic bladder outlet obstruction versus mild cystitis. 12. Moderate diffuse spondylosis. Reading [facility] CC: Dr. Eddie Waggoner MD; LIZZETTE Edwards Job Placement Counselor: Signed Normal [facility] CBC W/Diff, Automatedon 03-2 Absolute Lymph 0.99 X10 3/uL Normal 0.83-4.51 [facility] Comment on above: Performed By: #### L 501.1320, L100.0100, L500.4050 ####[facility] [address] [place], [address] Absolute Neut 1.6 X10 3/uL Low 2.0-7.7 [facility] Comment on above: Performed By: #### L 501.2450, L100.0100, L500.4050 ####[facility] [address] [place], [address] Basophils/100 WBC (Bld) 1.6 % High 0-1 [facility] Comment on above: Performed By: #### L 501.2450, L100.0100, L500.4050 ####[facility] [address] [place], [address] Eosinophils/100 WBC (Bld) 7.2 % High 0-5 [facility] Comment on above: Performed By: #### L 501.2450, L100.0100, L500.4050 ####[facility] [address] [place], [address] Erythrocyte distribution width (RBC) [Ratio] 12.0 % Normal 11.6-14.6 [facility] Comment on above: Performed By: #### L 501.2450, L100.0100, L500.4050 ####[facility] [address] [place], [address] Hematocrit (Bld) [Volume fraction] 37.2 % Normal 37-47 [facility] Comment on above: Performed By: #### L 501.2450, L100.0100, L500.4050 ####[facility] [address] [place], [address] Hemoglobin (Bld) [Mass/Vol] 12.9 g/dL Normal 12.0-15.0 [facility] Comment on above: Performed By: #### L 501.2450, L100.0100, L500.4050 ####[facility] [address] [place], [address] IG% 0.600 Normal 0.0-0.9 [facility] Comment on above: Result Comment: IG% - Immature Granulocytes (promyelocytes, myelocytes and metamyelocytes) > 1% indicates that a LEFT SHIFT is Present. Performed By: #### L 501.2450, L100.0100, L500.4050 ####[facility] [address] [place], [address] Lymphocytes/100 WBC (Bld) 31.1 % Normal 19-41 [facility] Comment on above: Performed By: #### L 501.2450, L100.0100, L500.4050 ####[facility] [address] [place], [address] MCH (RBC) [Entitic mass] 30.6 pg Normal 27.0-32.0 [facility] Comment on above: Performed By: #### L 501.2450, L100.0100, L500.4050 ####[facility] [address] [place], [address] MCHC (RBC) [Mass/Vol] 34.7 g/dL Normal 32-36 [facility] Comment on above: Performed By: #### L 501.2450, L100.0100, L500.4050 ####[facility] [address] [place], [address] MCV (RBC) [Entitic vol] 88.4 fL Normal 81-99 [facility] Comment on above: Performed By: #### L 501.2450, L100.0100, L500.4050 ####[facility] [address] [place], [address] Monocytes/100 WBC (Bld) 10.1 % High 0-10 [facility] Comment on above: Performed By: #### L 501.2450, L100.0100, L500.4050 ####[facility] [address] [place], [address] Neutrophils/100 WBC (Bld) 49.4 % Normal 47-70 [facility] Comment on above: Performed By: #### L 501.2450, L100.0100, L500.4050 ####[facility] [address] [place], [address] Nucleated RBC (Bld) [#/Vol] 0 10*3/uL Normal 0-5 [facility] Comment on above: Performed By: #### L 501.2450, L100.0100, L500.4050 ####[facility] [address] [place], [address] Platelet mean volume (Bld) [Entitic vol] 8.7 fL Normal 6.2-12.0 [facility] Comment on above: Performed By: #### L 501.2450, L100.0100, L500.4050 ####[facility] [address] [place], [address] Platelets (Bld) [#/Vol] 178 10*3/uL Normal 150-450 [facility] Comment on above: Performed By: #### L 501.2450, L100.0100, L500.4050 ####[facility] [address] [place], [address] RBC (Bld) [#/Vol] 4.21 10*6/uL Normal 4.2-5.4 [facility] Comment on above: Performed By: #### L 501.2450, L100.0100, L500.4050 ####[facility] [address] [place], [address] RDW SD 38.6 fl Normal 35.1-43.9 [facility] Comment on above: Performed By: #### L 501.2450, L100.0100, L500.4050 ####[facility] [address] [place], [address] WBC (Bld) [#/Vol] 3.2 10*3/uL Low 4.4-11.0 [facility] Comment on above: Performed By: #### L 501.2450, L100.0100, L500.4050 ####[facility] [address] [place], [address] Comprehensive Metabolic Prof ilon 05-31-2024 Albumin [Mass/Vol] 4.6 g/dL Normal 3.4-4.8 [facility] Comment on above: Performed By: #### L 501.2450, L100.0100, L500.4050 ####[facility] [address] [place], [address] Albumin/Globulin [Mass ratio] 2.0 {ratio} Normal 0.9-2.4 [facility] Comment on above: Performed By: #### L 501.2450, L100.0100, L500.4050 ####[facility] [address] [place], [address] ALK PHOS 70 U/L Normal 35-104 [facility] Comment on above: Performed By: #### L 501.2450, L100.0100, L500.4050 ####[facility] [address] [place], [address] ALT [Catalytic activity/Vol] 15 U/L Normal <=34 [facility] Comment on above: Performed By: #### L 501.2450, L100.0100, L500.4050 ####[facility] [address] [place], [address] AST [Catalytic activity/Vol] 21 U/L Normal <=31 [facility] Comment on above: Performed By: #### L 501.2450, L100.0100, L500.4050 ####[facility] [address] [place], [address] Bilirubin [Mass/Vol] 0.94 mg/dL Normal 0.00-1.30 [facility] Comment on above: Performed By: #### L 501.2450, L100.0100, L500.4050 ####[facility] [address] [place], [address] BUN/CRE 16.8 RATIO Normal 10-20 [facility] Comment on above: Performed By: #### L 501.2450, L100.0100, L500.4050 ####[facility] [address] [place], [address] Calcium [Mass/Vol] 9.5 mg/dL Normal 7.6-11.0 [facility] Comment on above: Performed By: #### L 501.2450, L100.0100, L500.4050 ####[facility] [address] [place], [address] Chloride [Moles/Vol] 103 mmol/L Normal 98-108 [facility] Comment on above: Performed By: #### L 501.2450, L100.0100, L500.4050 ####[facility] [address] [place], [address] CO2 [Moles/Vol] 22.3 mmol/L Normal 21.0-32.0 [facility] Comment on above: Performed By: #### L 501.2450, L100.0100, L500.4050 ####[facility] [address] [place], [address] GAP 15 Normal 5-15 [facility] Comment on above: Performed By: #### L 501.2450, L100.0100, L500.4050 ####[facility] [address] [place], [address] GFR/1.73 sq M.predicted among non-blacks MDRD (S/P/Bld) [Vol rate/Area] 67 mL/min/{1.73_m2} Normal >60 [facility] Comment on above: Result Comment: mL/m in/1.73m2 CKD-EPI Creatinine Equation (2020) Performed By: #### L 501.2450, L100.0100, L500.4050 ####[facility] [address] [place], [address] Globulin (S) [Mass/Vol] 2.3 g/dL Normal 2.2-4.2 [facility] Comment on above: Performed By: #### L 501.2450, L100.0100, L500.4050 ####[facility] [address] [place], [address] Potassium [Moles/Vol] 4.1 mmol/L Normal 3.3-5.1 [facility] Comment on above: Performed By: #### L 501.2450, L100.0100, L500.4050 ####[facility] [address] [place], [address] Sodium [Moles/Vol] 140 mmol/L Normal 133-145 [facility] Comment on above: Performed By: #### L 501.2450, L100.0100, L500.4050 ####[facility] [address] [place], [address] T PROT 6.9 g/dL Normal 5.9-8.4 [facility] Comment on above: Performed By: #### L 501.2450, L100.0100, L500.4050 ####[facility] [address] [place], [address] Creatinine [Mass/Vol] 0.85 mg/dL Normal 0.70-1.20 [facility] Comment on above: Performed By: #### L 501.2450, L100.0100, L500.4050 ####[facility] [address] [place], [address] Glucose [Mass/Vol] 97 mg/dL Normal 70-99 [facility] Comment on above: Performed By: #### L 501.2450, L100.0100, L500.4050 ####[facility] [address] [place], [address] Urea nitrogen [Mass/Vol] 14 mg/dL Normal 4-19 [facility] Comment on above: Performed By: #### L 501.2450, L100.0100, L500.4050 ####[facility] [address] [place], [address] Gastroenterology Visit Repor ton 05-31-2024 Gastroenterology Visit Report [facility] Gastroenterology [address] [place] [address] OFFICE VISIT Date of Service: 05/31/24 MR#: [id number] Acct: [id number] Name: ALISON SANTACRUZ Rep #: [id number] : 1940 Provider: LIZZETTE Edwards Age/Sex: 83/F Location: [facility] Status: Signed Intake Vital Signs 04/16/24 13:36 Height 5 ft 6 in Intake Visit Reasons: Ongoing issues Chief Complaint: abdominal pain Allergies Iodinated Contrast Media Allergy (Verified 04/16/24 13:29) Rash atorvastatin (From Lipitor) Adverse Reaction (Verified 04/16/24 13:29) Upset Stomach bupropion (From Wellbutrin) Adverse Reaction (Verified 04/16/24 13:29) Other paroxetine (From Paxil) Adverse Reaction (Verified 04/16/24 13:29) Alicia poorly rosuvastatin (From Crestor) Adverse Reaction (Verified 04/16/24 13:29) Upset Stomach sertraline (From Zoloft) Adverse Reaction (Verified 04/16/24 13:29) Other simvastatin (From Zocor) Adverse Reaction (Verified 04/16/24 13:29) Upset Stomach Patient : No Have you fallen in the past year?: No Nurse's Note: OV 05.31.24 Pt here for f/u and reports constipation, nausea, gas, and bloating. Pt reports having to take Dulcolax for bm. Pt reports she wants a CT scan. Pt reports she still has her gallbladder. Continues taking pantoprazole and dicyclomine daily. PFSH Medical History Arthritis Gastric reflux Wears hearing aid Loss of hearing Wears glasses Depression Alcohol use Thyroid disease High cholesterol Easy bruising History of IBS Bleeding hemorrhoids Heartburn Non-smoker History of stress test History of echocardiogram Cardiology follow-up encounter Abnormal EKG Varicose veins of both lower extremities Thrombocytopenia Polyp of colon Hyperlipidemia Adjustment disorder Insomnia IBS (irritable bowel syndrome) Panic disorder Generalized anxiety disorder Major depressive disorder, recurrent severe without psychotic features Hypothyroid Hypertension Leukopenia Surgical History Hx of colonoscopy Trigger finger of left thumb History of reverse total replacement of left shoulder joint H/O varicose vein ligation History of tonsillectomy and adenoidectomy History of hysterectomy Family History Mother Hypertension Father Hypertension Depression CVA (cerebral vascular accident) Bladder cancer Brother Cancer Social History Smoking Status: Never smoker alcohol intake: current alcohol intake frequency: holidays/special occasions only substance use type: does not use HPI HPI Chief Complaint: abdominal pain Details: ALISON SANTACRUZ, is a 83 F who presents to the office today for f/u. BGI established in Nov 2023 for constipation. Colonsocpy 10 years ago with hemorrhoids and polyps. Colonoscopy 12.19.23; - Hemorrhoids found on perianal exam. - A single non-bleeding colonic angiodysplastic lesion. - External and internal hemorrhoids. Banded. - No specimens collected Last OV 02.15.25; Constipation has resolved. Pt now with epigastric pain and intense nausea. Endorses black and tarry stools. Has a hx of NSAID use. CBC showing normal hemoglobin EGD 04.16.24; - Z-line irregular, 40 cm from the incisors. Biopsied. - Nodular mucosa in the entire stomach. Biopsied. - No gross lesions in the first portion of the duodenum. Biopsied. OV 05.31.24; Pt continues with daily nausea, back pain, constipation, abdominal pain and bloating. She is having a bm every 2-3 days but only if she takes Dulcolax. When taking dulcolax she will have liquid stool. Every morning she wakes up with back pain and nausea. She does not ever vomit. Her abdomen feels full and bloated. She endorses losing a few lbs due to lack of appetite. ROS Const Constitutional: Positive for weight change; No fatigue or fever(s) ENT ENT: No difficulty swallowing Gastro GI: Positive for bloating, change in bowel habits, constipation, diarrhea, heartburn, excessive flatus and nausea/dyspepsia; No abdominal pain, belching, change in stool character, coffee ground emesis, cramping, difficulty swallowing, feeling full early, incontinent of stools, Vomiting blood/hematemesis, Blood in stool, loose stools, Black,tarry stools, pain with swallowing, vomiting or other Musc Musculoskeletal: Positive for back pain; No joint pain Skin Skin: Positive for dry skin, itchy eyes and rash; No yellowing of the eye Psych Psychiatric: Positive for anxiety, Positive for depression and Positive for paranoia Endo Endocrine: Positive for weight change; No fatigue Aller/Imm Allergy/Immunologic: Positive for itchy (more content not included)... Normal [facility] Lipaseon 05-31-2024 Lipase [Catalytic activity/Vol] 26 U/L Normal 13-75 [facility] Comment on above: Result Comment: Yuko joseph note: LIPASE revised reference range effective 22. New Lipase methodology. Expected to produce lower values than the previous assay method. NEW Reference Range: 13 - 75 U/L Performed By: #### L 501.2450, L100.0100, L500.4050 ####[facility] [address] [place], [address] Stool Occult Blood iFOBon STOB Negative Normal [facility] Comment on above: Performed By: #### M 100.7900 ####[facility] [address] [place], [place], [address] Abd Inc Decub and/or Erecton 05-30-2024 Abd Inc Decub and/or Erect [facility] Imaging Services [address] [place] [place] [address] Abd Inc Decub and/or Erect MR#: [id number] Acct: [id number] Name: ALISON SANTACRUZ Rep #: [id number] : 1940 F 83 From: Karel Mortensen MD PCP: Dr. Eddie Waggoner MD Status: REG CLI Study: Abd Inc Decub and/or Erect Date of Exam: 05/30 Exam# [id number] Ordering Dr: Eddie Waggoner MD EXAM: XR Abdomen, 1 View CLINICAL INDICATION: LEFT FLANK PAIN TECHNIQUE: Frontal supine view of the abdomen/pelvis. COMPARISON: No relevant prior studies available. FINDINGS: GASTROINTESTINAL TRACT: Fecal retention in the colon consistent with constipation. No dilation. BONES/JOINTS: S shaped scoliosis of the thoracolumbar spine without multilevel degenerative changes. No acute fracture. RAD/Abd Inc Decub and/or Erect IMPRESSION: Fecal retention in the colon consistent with constipation. Reading [facility] CC: Dr. Eddie Waggoner MD Job Placement Counselor: Signed Normal [facility] Thyroid Stim Hormone (TSH)on 04-22-2024 TSH 2.120 uIU/mL Normal 0.358-3.740 [facility] Comment on above: Performed By: #### L 501.9520 ####[facility] [address] [place], [place], [id number] EGD Reporton 04-16-2024 EGD Report [facility] Medical Records Department [address] [place] [address] EGD Report MR#: [id number] Acct: [id number] Name: ALISON SANTACRUZ Rep #: [id number] : 1940 83 From: Willie Shook DO PCP: Dr. Eddie Waggoner MD Status:[facility] Patient Name: Alison Santacruz Procedure Date: 04/16/2024 2:52 PM Date of : 1940 Age: 83 Procedure: Upper GI endoscopy Indications: Epigastric abdominal pain, Functional Dyspepsia, Suspected upper gastrointestinal bleeding Providers: Willie Shook DO Referring MD: Eddie Waggoner Md Medicines: Monitored Anesthesia Care Patient Profile: This is an 83 year old female. Refer to note in patient chart for documentation of history and physical. Patient has symptoms of acute epigastric abdominal pain, acute dyspepsia and acute nausea. Complications: No immediate complications. Procedure: Pre-Anesthesia Assessment: - Prior to the procedure, a History and Physical was performed, and patient medications and allergies were reviewed. The patient is competent. The risks and benefits of the procedure and the sedation options and risks were discussed with the patient. All questions were answered and informed consent was obtained. Patient identification and proposed procedure were verified by the physician in the pre-procedure area. Mental Status Examination: alert and oriented. Airway Examination: normal oropharyngeal airway and neck mobility. Respiratory Examination: clear to auscultation. CV Examination: normal. Prophylactic Antibiotics: The patient does not require prophylactic antibiotics. Prior Anticoagulants: The patient has taken no anticoagulant or antiplatelet agents. ASA Grade Assessment: III - A patient with severe systemic disease. After reviewing the risks and benefits, the patient was deemed in satisfactory condition to undergo the procedure. The anesthesia plan was to use monitored anesthesia care (MAC). Immediately prior to administration of medications, the patient was re-assessed for adequacy to receive sedatives. The heart rate, respiratory rate, oxygen saturations, blood pressure, adequacy of pulmonary ventilation, and response to care were monitored throughout the procedure. The physical status of the patient was re-assessed after the procedure. After obtaining informed consent, the endoscope was passed under direct vision. Throughout the procedure, the patient's blood pressure, pulse, and oxygen saturations were monitored continuously. The Endoscope was introduced through the mouth, and advanced to the second part of duodenum. The upper GI endoscopy was accomplished without difficulty. The patient tolerated the procedure well. Scope In: 3:04:33 PM Scope Out: 3:09:02 PM Total Procedure Duration Time 0 hours 4 minutes 29 seconds Findings: The Z-line was irregular and was found 40 cm from the incisors. Biopsies were taken with a cold forceps for histology. Verification of patient identification for the specimen was done. Estimated blood loss was minimal. Diffuse nodular mucosa was found in the entire examined stomach. Biopsies were taken with a cold forceps for histology. Verification of patient identification for the specimen was done. Estimated blood loss was minimal. No gross lesions were noted in the first portion of the duodenum. Biopsies were taken with a cold forceps for histology. Verification of patient identification for the specimen was done. Estimated blood loss was minimal. Impression: - Z-line irregular, 40 cm from the incisors. Biopsied. - Nodular mucosa in the entire stomach. Biopsied. - No gross lesions in the first portion of the duodenum. Biopsied. Recommendation: - Discharge patient to home. - Resume previous diet today. - Continue present medications. - Await pathology results. Procedure Code(s): --- Professional --- 19968, Esophagogastroduodenosco py, flexible, transoral; with biopsy, single or multiple CPT copyright 2021 [employer]. All rights reserved. The codes documented in this report are preliminary and upon delivery driver assistant review may be revised to meet current compliance requirements. Willie Shook DO 04/16/2024 3:20:24 PM This report has been signed electronically. Number of Addenda: 0 Note Initiated On: 04/16/2024 2:52 PM 04/16/24 1520 Date Willie Shook DO Cosigner Signature: Date (if indicated) CC: Dr. Eddie Waggoner MD; Willie Shook DO Date Dictated: 04/16/24 1452 Date Transcribed: Job Placement Counselor: ES Signed Normal [facility] H Pylori (initial)on 025 H Pylori (initial) ---- Patient Age/Sex Location Account Attending Physician ALISON SANTACRUZ 83/F EN [id number] Willie Shook DO Specimen: [id number] Received: 04/17/24 Status: AKIRA Kelly Num: [id number] Spec Type: IMMUNO Subm Dr: Willie Shook DO PHYSICIAN INSTITUTION [place] [address] SPECIMEN INFORMATION: Tissue Source: B- Gastric cardia biopsy, C- Distal esophagus biopsy Clinical Info: Heartburn, GERD Specimen Number: [id number] B,C CPT code: 90779z0,95838 METHODOLOGY: Deparaffinized sections of prefer/formalin-fixed tissue or PAP/DQ stained slides are incubated with monoclonal/polyclonal antibodies/oligonucleoti de probes. Localization is made via biotin free immunoperoxidase method. Appropriate controls are performed and reacted as expected. Results on target cell population are indicated in the following table: RESULTS: ANTIBODY / CLONE RESULT Block B H Pylori (polyclonal) negative Block C P53 (DO-7) negative (null pattern) Ki-67 (30-9) positive, low These tests were developed and their performance characteristics determined by [facility]. They may not have been cleared or approved by the U.S. Food and Drug Administration. The FDA has determined that such clearance or approval is not necessary. The above immunohistochemical/dual ENRIQUETA markers are ordered and reviewed by the Pathologist. INTERPRETATION: B. Gastric cardia, biopsy: Negative for Helicobacter pylori organisms. C. Distal esophagus, biopsy: Negative for dysplasia. SJ. 04/19/2024 Signed (signature on file) Dr. Alejandro Rashid MD 04/19/24 1151 Normal [facility] Comment on above: Performed By: #### P H.PYLORI #### [facility] [address] [facility] [address] [place], [place], [address] MR/POSTOP.Prisca 04-16-2024 MR/POSTOP.[facility] Medical Records Department [address] [place] [address] Anesthesia Postop Eval I 04/16/24 1518 MR#: [id number] Acct: [id number] Name: ALISON SANTACRUZ Rep #: [id number] : 1940 83 From: Jim Middleton PCP: Dr. Eddie Waggoner MD Status:REG SDC Y Race: C Location: [facility]12-04 Anesthesia: Postop Eval I Current Vital Signs Temperature: 97.9 F Pulse Rate: 71 Blood Pressure: 132/79 Respiratory Rate: 16 Pulse Ox: 97 Oxygen Delivery Method: Room Air Assessment Airway patent: Yes Spontaneous unlabored respirations: Yes Mental status: Awake and Calm nausea: No Vomiting: No Anesthesia Complication: No Fluid Hydration Crystalloid volume administer (ml): 30 Total IV fluid infused: 30 Progress Note Anesthesia document: Postop Eval 1 completed: Yes 04/16/24 1519 Date Jim Gregg Signature: Date CC: Signed Normal [facility] MR/[id number] 04-16-2024 MR/POSTOPAN2 [facility] Medical Records Department [address] [place] [address] Anesthesia Postop Eval II 04/16/241830 MR#: [id number] Acct: [id number] Name: ALISON SANTACRUZ Rep #: [id number] : 1940 83 From: Oliver Kapoor MD PCP: Dr. Eddie Waggoner MD Status:DEP [facility] Y Race: C Location: EN Anesthesia Postop Eval I Sum Postop Eval Completion status Anesthesia document: Postop Eval 1 completed: Yes Anesthesia Postop Eval I Summary Anesthesia Postop Eval I Summary: Anesthesia Postop Eval I: Assessment Summary Airway patent Yes 04/16/24 15:19 [email or web address] Spontaneous unlabored Yes 04/16/24 15:19 [email or web address] respirations Mental status Awake,Calm 04/16/24 15:19 [email or web address] nausea No 04/16/24 15:19 [email or web address] Vomiting No 04/16/24 15:19 [email or web address] Anesthesia Postop Eval I: Fluid Summary Crystalloid volume administer 30 04/16/24 15:19 [email or web address] (ml) Colloids volume administered ( ml) Blood Product volume administered (ml) Total IV fluid infused 30 04/16/24 15:19 [email or web address] Anesthesia Postop Eval I: Summary Notes Anesthesia Complication No 04/16/24 15:19 [email or web address] Anesthesia Complication Comment: Post-operative progress note Anesthesia: Postop Eval II Evaluation Mental status: Awake and Calm Pain Level: 0 nausea: No Vomiting: No Complications Anesthesia Complication: No 04/16/241830 Date Oliver Gregg Signature: Date CC: Signed Normal [facility] Special Stain Group Ion 04-06 Special Stain Group I ------ Patient Age/Sex Location Account Attending Physician ALISON SANTACRUZ 83/F EN [id number] Willie Shook DO Specimen: [id number] Received: 04/17/24 Status: AKIRA Kelly Num: [id number] Spec Type: EGD BIOPSY Jana Dr: Willie Shook, DO HEADER OPERATION: EGD PRE-OP DIAGNOSIS: Heartburn, GERD TISSUE SUBMITTED: A- Duodenum biopsy, B- Gastric cardia, C- Distal esophagus biopsy MICROSCOPIC DIAGNOSIS A. Duodenum, biopsy: Fragments of duodenal mucosa, no pathologic diagnosis. B. Gastric cardia, biopsy: Mild to moderate gastritis. See microscopic description and comment. C. Distal esophagus, biopsy: Fragments of gastroesophageal mucosa with focal intestinal metaplasia (goblet cell metaplasia), consistent with Mccauley's esophagus. Chronic inflammation. Negative for dysplasia. See comment. 04/18/2024 COMMENT B. The results of immunohistochemistry for Helicobacter pylori will be reported separately ([id number]). C. Alcian blue/PAS stain with matched control is used in the evaluation of the specimen. Immunohistochemistry ([id number]) for P53 and Ki-67 will be performed, and results will be reported separately. This specimen predominantly consists of gastric mucosa. MICROSCOPIC DESCRIPTION Slides are reviewed. B. The specimen shows fragments of gastric mucosa with chronic inflammatory cell infiltrates in the lamina propria consisting of lymphocytes and plasma cells, consistent with mild to moderate chronic gastritis. GROSS DESCRIPTION A. Received in fixative is one container labeled with the patient's name and designated Duodenum biopsy. The specimen consists of two irregular fragments of light marshall soft tissue that in aggregate measure 0.4 x 0.3 x 0.1 cm. The specimen is totally submitted in one cassette. B. Received in fixative is one container labeled with the patient's name and designated Gastric cardia biopsy. The specimen consists of two irregular fragments of light marshall soft Patient Age/Sex Location Account Attending Physician ALISON SANTACRUZ 83/F EN [id number] Willie Shook DO tissue that in aggregate measure 1 x 0.5 x 0.1 cm. The specimen is totally submitted in one cassette. C. Received in fixative is one container labeled with the patient's name and designated Distal esophagus biopsy. The specimen consists of two irregular fragments of light marshall soft tissue that in aggregate measure 0.6 x 0.4 x 0.1 cm. The specimen is totally submitted in one cassette. 04/17/2024 TC:3 [facility]:[id number] Patient Age/Sex Location Account Attending Physician ALISON SANTACRUZ 83/F EN [id number] Willie DO Bouchra Signed (signature on file) Dr. Alejandro Rashid MD 04/19/24 0934 Normal [facility] Comment on above: Performed By: #### P SSI ####[facility] [address] [place], [place], [address] /Monalisa 04-15-2024 /[facility] Medical Records Department [address] [place] [address] PAT - Anesthesia 04/15/24 1032 MR#: [id number] Acct: [id number] Name: YOBANIALISON Rep #: [id number] : 1940 83 From: Casey Staley MD PCP: Dr. 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 When Was Last Pacemaker Check QUESTION #4 FULL TEXT: You/Your Family Experience fever (hyperthermia) with Anesthesia Last Oral Intake Last Oral intake: Last Oral Intake NPO since Meds taken in AM with sips of water? 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 Has anyone observed you stop No 04/11/24 15:16 breathing during sleep? STOP Results Negative 04/11/24 15:16 QUESTION #5 FULL TEXT : Do you snore loudly (louder than talking or can be heard through closed doors)? 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 Specify any problems Hx of Preganancy in last 3 No 04/11/24 15:16 Months Nurse Filling Out Transfusion DURAN 04/11/24 15:16 Questions: Date: 04/11/24 04/11/24 15:16 Time: 15:18 04/11/24 15:16 Patient unable to answer at this time (ie. 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 Hx Now Gestational Age (in weeks): EDC: Hx Hx Para Hx Section SAB No 12/15/23 09:44 [facility] Medical History (Updated 04/11/24 @ 15:27 by Renata Roberts) Arthritis Gastric reflux Wears hearing aid Loss of hearing Wears glasses Depression Alcohol use Thyroid disease High cholesterol Easy bruising History of IBS Bleeding hemorrhoids Heartburn Non-smoker History of stress test History of echocardiogram Cardiology follow-up encounter Abnormal EKG Varicose veins of both lower extremities Thrombocytopenia Polyp of colon Hyperlipidemia Adjustment disorder Insomnia IBS (irritable bowel syndrome) Panic disorder Generalized anxiety disorder Major depressive disorder, recurrent severe without psychotic features Hypothyroid Hypertension Leukopenia Home Medications ???Medication ???Instructions ???Recorded ???Last Taken ???Type amlodipine 5 mg tablet 5 mg PO DAILY 07/14/22 Unknown His tory folic acid 1 mg tablet 1 mg PO DAILY 07/14/22 12/15/23 Hi story glucosamine 750 ze-kczickglhbu-alo 1 tab PO DAILY 07/14/22 12/18/23 His (more content not included)... Normal [facility] CBC W/Diff, Automatedon 12- Absolute Lymph 1.41 X10 3/uL Normal 0.83-4.51 [facility] Comment on above: Performed By: #### L 100.0100, L500.4050, L501.2450 #### [facility] [address] [place], [address] Absolute Neut 2.6 X10 3/uL Normal 2.0-7.7 [facility] Comment on above: Performed By: #### L 100.0100, L500.4050, L501.2450 #### [facility] [address] [place], [address] Basophils/100 WBC (Bld) 1.0 % Normal 0-1 [facility] Comment on above: Performed By: #### L 100.0100, L500.4050, L501.2450 #### [facility] [address] [place], [address] Eosinophils/100 WBC (Bld) 4.4 % Normal 0-5 [facility] Comment on above: Performed By: #### L 100.0100, L500.4050, L501.2450 #### [facility] [address] [place], [address] Erythrocyte distribution width (RBC) [Ratio] 11.9 % Normal 11.6-14.6 [facility] Comment on above: Performed By: #### L 100.0100, L500.4050, L501.2450 #### [facility] [address] [place], [address] Hematocrit (Bld) [Volume fraction] 38.2 % Normal 37-47 [facility] Comment on above: Performed By: #### L 100.0100, L500.4050, L501.2450 #### [facility] [address] [place], [address] Hemoglobin (Bld) [Mass/Vol] 12.9 g/dL Normal 12.0-15.0 [facility] Comment on above: Performed By: #### L 100.0100, L500.4050, L501.2450 #### [facility] [address] [place], [address] IG% 1.000 High 0.0-0.9 [facility] Comment on above: Result Comment: IG% - Immature Granulocytes (promyelocytes, myelocytes and metamyelocytes) > 1% indicates that a LEFT SHIFT is Present. Performed By: #### L 100.0100, L500.4050, L501.2450 #### [facility] [address] [place], [address] Lymphocytes/100 WBC (Bld) 29.5 % Normal 19-41 [facility] Comment on above: Performed By: #### L 100.0100, L500.4050, L501.2450 #### [facility] [address] [place], [address] MCH (RBC) [Entitic mass] 30.1 pg Normal 27.0-32.0 [facility] Comment on above: Performed By: #### L 100.0100, L500.4050, L501.2450 #### [facility] [address] [place], [address] MCHC (RBC) [Mass/Vol] 33.8 g/dL Normal 32-36 [facility] Comment on above: Performed By: #### L 100.0100, L500.4050, L501.2450 #### [facility] [address] [place], [address] MCV (RBC) [Entitic vol] 89.0 fL Normal 81-99 [facility] Comment on above: Performed By: #### L 100.0100, L500.4050, L501.2450 #### [facility] [address] [place], [address] Monocytes/100 WBC (Bld) 8.8 % Normal 0-10 [facility] Comment on above: Performed By: #### L 100.0100, L500.4050, L501.2450 #### [facility] [address] [place], [address] Neutrophils/100 WBC (Bld) 55.3 % Normal 47-70 [facility] Comment on above: Performed By: #### L 100.0100, L500.4050, L501.2450 #### [facility] [address] [place], [address] Nucleated RBC (Bld) [#/Vol] 0 10*3/uL Normal 0-5 [facility] Comment on above: Performed By: #### L 100.0100, L500.4050, L501.2450 #### [facility] [address] [place], [address] Platelet mean volume (Bld) [Entitic vol] 8.6 fL Normal 6.2-12.0 [facility] Comment on above: Performed By: #### L 100.0100, L500.4050, L501.2450 #### [facility] [address] [place], [address] Platelets (Bld) [#/Vol] 193 10*3/uL Normal 150-450 [facility] Comment on above: Performed By: #### L 100.0100, L500.4050, L501.2450 #### [facility] [address] [place], [address] RBC (Bld) [#/Vol] 4.29 10*6/uL Normal 4.2-5.4 [facility] Comment on above: Performed By: #### L 100.0100, L500.4050, L501.2450 #### [facility] [address] [place], [address] RDW SD 38.3 fl Normal 35.1-43.9 [facility] Comment on above: Performed By: #### L 100.0100, L500.4050, L501.2450 #### [facility] [address] [place], [address] WBC (Bld) [#/Vol] 4.8 10*3/uL Normal 4.4-11.0 [facility] Comment on above: Performed By: #### L 100.0100, L500.4050, L501.2450 #### [facility] [address] [place], [address] Comprehensive Metabolic Prof ilon 02-16-2024 Albumin [Mass/Vol] 3.9 g/dL Normal 3.2-5.0 [facility] Comment on above: Performed By: #### L 100.0100, L500.4050, L501.2450 #### [facility] [address] [place], [address] Albumin/Globulin [Mass ratio] 1.3 {ratio} Normal 0.9-2.4 [facility] Comment on above: Performed By: #### L 100.0100, L500.4050, L501.2450 #### [facility] [address] [place], [address] ALK P 63 U/L Normal 45-117 [facility] Comment on above: Performed By: #### L 100.0100, L500.4050, L501.2450 #### [facility] [address] [place], [address] ALT [Catalytic activity/Vol] 23 U/L Normal 13-56 [facility] Comment on above: Performed By: #### L 100.0100, L500.4050, L501.2450 #### [facility] [address] [place], [address] AST [Catalytic activity/Vol] 12 U/L Low 15-37 [facility] Comment on above: Performed By: #### L 100.0100, L500.4050, L501.2450 #### [facility] [address] [place], [address] Bilirubin [Mass/Vol] 1.00 mg/dL Normal 0.20-1.00 [facility] Comment on above: Result Comment: For patients on eltrombopag therapy, use of Dimension [place] TBIL is not recommended. Performed By: #### L 100.0100, L500.4050, L501.2450 #### [facility] [address] [place], [address] BUN/CRE 16.3 RATIO Normal 10-20 [facility] Comment on above: Performed By: #### L 100.0100, L500.4050, L501.2450 #### [facility] [address] [place], [address] CA,Total 9.4 mg/dL Normal 8.5-10.1 [facility] Comment on above: Performed By: #### L 100.0100, L500.4050, L501.2450 #### [facility] [address] [place], [address] Chloride [Moles/Vol] 103 mmol/L Normal 98-107 [facility] Comment on above: Performed By: #### L 100.0100, L500.4050, L501.2450 #### [facility] [address] [place], [address] CO2 [Moles/Vol] 30.0 mmol/L Normal 21.0-32.0 [facility] Comment on above: Performed By: #### L 100.0100, L500.4050, L501.2450 #### [facility] [address] [place], [address] Creatinine [Mass/Vol] 0.86 mg/dL Normal 0.55-1.02 [facility] Comment on above: Result Comment: The validity of the calculated GFR GFRAA in patients over 70 years has not been determined. Clinical correlation is essential. Performed By: #### L 100.0100, L500.4050, L501.2450 #### [facility] [address] [place], [address] EST GFR - AA 81 mL/min Normal >60 [facility] Comment on above: Result Comment: Afri can [place] GFR Calc Performed By: #### L 100.0100, L500.4050, L501.2450 #### [facility] [address] [place], [address] GAP 4 Low 5-15 [facility] Comment on above: Performed By: #### L 100.0100, L500.4050, L501.2450 #### [facility] [address] [place], [address] GFR/1.73 sq M.predicted among non-blacks MDRD (S/P/Bld) [Vol rate/Area] 67 mL/min/{1.73_m2} Normal >60 [facility] Comment on above: Result Comment: Non- GFR Calc Performed By: #### L 100.0100, L500.4050, L501.2450 #### [facility] [address] [place], [address] Globulin (S) [Mass/Vol] 2.9 g/dL Normal 2.2-4.2 [facility] Comment on above: Performed By: #### L 100.0100, L500.4050, L501.2450 #### [facility] [address] [place], [address] Glucose [Mass/Vol] 94 mg/dL Normal 74-106 [facility] Comment on above: Performed By: #### L 100.0100, L500.4050, L501.2450 #### [facility] [address] [place], [address] Potassium [Moles/Vol] 4.4 mmol/L Normal 3.5-5.1 [facility] Comment on above: Performed By: #### L 100.0100, L500.4050, L501.2450 #### [facility] [address] [place], [address] Sodium [Moles/Vol] 137 mmol/L Normal 136-145 [facility] Comment on above: Performed By: #### L 100.0100, L500.4050, L501.2450 #### [facility] [address] [place], [address] T PROT 6.8 g/dL Normal 6.4-8.2 [facility] Comment on above: Performed By: #### L 100.0100, L500.4050, L501.2450 #### [facility] [address] [place], [address] Urea nitrogen [Mass/Vol] 14 mg/dL Normal 7-18 [facility] Comment on above: Performed By: #### L 100.0100, L500.4050, L501.2450 #### [facility] [address] [place], [address] Gastroenterology Visit Repor ton 02-16-2024 Gastroenterology Visit Report [facility]enter[facility] [address] [place] [address] OFFICE VISIT Date of Service: 02/16/24 MR#: [id number] Acct: [id number] Name: SILVIA SANTACRUZBHAVIK Lawson Rep #: [id number] : 1940 Provider: LIZZETTE Edwards Age/Sex: 83/F Location: [facility] Status: Signed Intake Vital Signs 12/19/23 13:28 Height 5 ft 6 in Intake Visit Reasons: Diarrhea Chief Complaint: black tarry stools Allergies Iodinated Contrast Media Allergy (Verified 12/19/23 13:25) Rash atorvastatin (From Lipitor) Adverse Reaction (Verified 12/19/23 13:25) Upset Stomach bupropion (From Wellbutrin) Adverse Reaction (Verified 12/19/23 13:25) Other paroxetine (From Paxil) Adverse Reaction (Verified 12/19/23 13:25) Alicia poorly rosuvastatin (From Crestor) Adverse Reaction (Verified 12/19/23 13:25) Upset Stomach sertraline (From Zoloft) Adverse Reaction (Verified 12/19/23 13:25) Other simvastatin (From Zocor) Adverse Reaction (Verified 12/19/23 13:25) Upset Stomach Have you fallen in the past year?: No Nurse's Note: OV 02.16.24 Pt here for f/u. Pt reports nausea, abdominal pain, back pain, gas, bloating and black tarry stools for a week. Reports she has to take a suppository every morning every day to have a BM. Reports poor appetite due to nausea. [facility] Medical History (Updated 02/16/24 @ 09:31 by LIZZETTE Edwards) Wears hearing aid Loss of hearing Wears glasses Depression Alcohol use Thyroid disease Bladder disease High cholesterol Easy bruising History of IBS Bleeding hemorrhoids Heartburn Non-smoker History of stress test History of echocardiogram Cardiology follow-up encounter Abnormal EKG Varicose veins of both lower extremities Thrombocytopenia Polyp of colon Hyperlipidemia Adjustment disorder Insomnia IBS (irritable bowel syndrome) Panic disorder Generalized anxiety disorder Major depressive disorder, recurrent severe without psychotic features Hypothyroid Hypertension Leukopenia Surgical History (Updated 12/15/23 @ 09:52 by Roma Lopez) Hx of colonoscopy Trigger finger of left thumb History of reverse total replacement of left shoulder joint H/O varicose vein ligation History of tonsillectomy and adenoidectomy History of hysterectomy Family History Mother Hypertension Father Hypertension Depression CVA (cerebral vascular accident) Bladder cancer Brother Cancer Social History Smoking Status: Never smoker alcohol intake: current alcohol intake frequency: holidays/special occasions only substance use type: does not use HPI HPI Chief Complaint: black tarry stools Details: ALISON SANTACRUZ, is a 83 F who presents to the office today for f/u. BGI established 11.27.23 w/ constipation and complaints of hemorrhoids. Takes miralax and dulcolax as needed. Some nausea in the mornings she feels is related to anxiety. Colonoscopy 12.19.23; Hemorrhoids found on perianal exam. - A single non-bleeding colonic angiodysplastic lesion. - External and internal hemorrhoids. Banded. - No specimens collected OV 02.16.24 Pt had colonoscopy with banding in December and feels this went well. SHe was having some constipation after the procedure but this has since resolved. Pt reports new symptoms of diffuse epigastric pain starting one week ago associated with intense nausea. This is new to her and she has never had this before. She also notes her stools are black and tarry. They are mostly loose but sometimes solid. SHe has no hx of heartburn. She was taking NSAIDs for knee pain daily for many months but did recently stop this. She feels weak and fatigued. ROS Const Constitutional: Positive for fatigue ENT ENT: No difficulty swallowing Gastro GI: Positive for abdominal pain, bloating, change in bowel habits, diarrhea, heartburn, excessive flatus, Black,tarry stools and nausea/dyspepsia; No belching, change in stool character, coffee ground emesis, constipation, cramping, difficulty swallowing, feeling full early, incontinent of stools, Vomiting blood/hematemesis, Blood in stool, loose stools, pain with swallowing, vomiting or other Musc Musculoskeletal: Positive for back pain Skin Skin: No yellowing of the eye or itchy eyes Psych Psychiatric: Positive for anxiety and Positive for depression Endo Endocrine: Positive for fatigue Aller/Imm Allergy/Immunologic: No itchy eyes Sd/Lymp Hematologic/Lymphatic: Positive for easy bruising Exam Const General: cooperative and comfortable Nutritional Appearance: average body habitus and well nourished [facility] Head: normal to inspection Ears: hearing grossly normal bilaterally Nose: external nose normal Eyes General: appearance normal, osmany (more content not included)... Normal [facility] Lipaseon 02-16-2024 Lipase [Catalytic activity/Vol] 37 U/L Normal 13-75 [facility] Comment on above: Result Comment: Yuko joseph note: LIPASE revised reference range effective 22. New Lipase methodology. Expected to produce lower values than the previous assay method. NEW Reference Range: 13 - 75 U/L Performed By: #### L 100.0100, L500.4050, L501.2450 #### [facility] [address] [place], [address] Colonoscopy Reporton 024 Colonoscopy Report [facility] Medical Records Department [address] [place] [address] Colonoscopy Report MR#: [id number] Acct: [id number] Name: ALISON SANTACRUZ Rep #: [id number] : 1940 83 From: Willie Shook DO PCP: Dr. Eddie Waggoner MD Status:REG [facility] Patient Name: Alison Santacruz Procedure Date: 12/19/2023 2:28 PM Date of : 1940 Age: 83 Procedure: Colonoscopy Indications: Hematochezia Providers: Willie Shook DO Medicines: Monitored Anesthesia Care Patient Profile: This is an 83 year old female. Refer to note in patient chart for documentation of history and physical. Last Colonoscopy: several years ago. Complications: No immediate complications. Procedure: Pre-Anesthesia Assessment: - Prior to the procedure, a History and Physical was performed, and patient medications and allergies were reviewed. The patient is competent. The risks and benefits of the procedure and the sedation options and risks were discussed with the patient. All questions were answered and informed consent was obtained. Patient identification and proposed procedure were verified by the physician in the pre-procedure area. Mental Status Examination: alert and oriented. Airway Examination: normal oropharyngeal airway and neck mobility. Respiratory Examination: clear to auscultation. CV Examination: normal. Prophylactic Antibiotics: The patient does not require prophylactic antibiotics. Prior Anticoagulants: The patient has taken no anticoagulant or antiplatelet agents except for NSAID medication. ASA Grade Assessment: II - A patient with mild systemic disease. After reviewing the risks and benefits, the patient was deemed in satisfactory condition to undergo the procedure. The anesthesia plan was to use monitored anesthesia care (MAC). Immediately prior to administration of medications, the patient was re-assessed for adequacy to receive sedatives. The heart rate, respiratory rate, oxygen saturations, blood pressure, adequacy of pulmonary ventilation, and response to care were monitored throughout the procedure. The physical status of the patient was re-assessed after the procedure. After I obtained informed consent, the scope was passed under direct vision. Throughout the procedure, the patient's blood pressure, pulse, and oxygen saturations were monitored continuously. The Colonoscope was introduced through the anus and advanced to the cecum, identified by appendiceal orifice and ileocecal valve. The colonoscopy was performed without difficulty. The patient tolerated the procedure well. The quality of the bowel preparation was adequate. The ileocecal valve, appendiceal orifice, and rectum were photographed. Scope In: 2:39:31 PM Scope Withdrawal Time 0 hours 14 minutes 53 seconds Scope Out: 3:08:47 PM Total Procedure Duration Time 0 hours 29 minutes 16 seconds Findings: Hemorrhoids were found on perianal exam. A single medium-sized angiodysplastic lesion without bleeding was found in the cecum. External and internal hemorrhoids were found during retroflexion. The hemorrhoids were Grade II (internal hemorrhoids that prolapse but reduce spontaneously). A hemorrhoid was isolated with endoscopy. The JANY ligator was positioned over the hemorrhoid at the left lateral position. Suction was applied and one rubber band was placed over the hemorrhoid. This was checked to make certain that the muscularis was free of the band. Post-banding digital rectal exam showed band in good position. There were no complications. Impression: - Hemorrhoids found on perianal exam. - A single non-bleeding colonic angiodysplastic lesion. - External and internal hemorrhoids. Banded. - No specimens collected. Recommendation: - Return to GI office. - No recommendation at this time regarding repeat colonoscopy due to age. - Continue present medications. Procedure Code(s): --- Professional --- 82987, Colonoscopy, flexible; with band ligation(s) (eg, hemorrhoids) CPT copyright 2021 [employer]. All rights reserved. The codes documented in this report are preliminary and upon delivery driver assistant review may be revised to meet current compliance requirements. Willie Shook DO 12/19/2023 3:16:04 PM This report has been signed electronically. Number of Addenda: 0 Note Initiated On: 12/19/2023 2:28 PM 12/19/23 1516 Date Willie Álvarez Signature: Date (if indicated) CC: Dr. Eddie Waggoner MD; Willie Shook DO Date Dictated: 12/19/23 1428 Date Transcribed: Job Placement Counselor: RF Signed [facility] MR/[email or web address].ANE 12-19-2023 MR/POSTOP.[facility] Medical Records Department [address] [place] [address] Anesthesia Postop Eval I 12/19/231516 MR#: [id number] Acct: [id number] Name: ALISON SANTACRUZ Rep #: [id number] : 1940 83 From: Jim Middleton PCP: Dr. Eddie Waggoner MD Status:REG [facility] Y Race: C Location: [place] [address] Anesthesia: Postop Eval I Current Vital Signs Temperature: 97 F Pulse Rate: 60 Blood Pressure: 78/48 Respiratory Rate: 12 Pulse Ox: 96 Oxygen Delivery Method: Room Air Assessment Airway patent: Yes Spontaneous unlabored respirations: Yes Mental status: Asleep nausea: No Vomiting: No Anesthesia Complication: No Fluid Hydration Crystalloid volume administer (ml): 30 Total IV fluid infused: 30 Progress Note Anesthesia document: Postop Eval 1 completed: Yes 12/19/231517 Date Jim Gregg Signature: Date CC: Signed [facility] [id number] 12-19-2023 MR/POSTOPA[address] Medical Records Department [address] [place] [address] Anesthesia Postop Eval II 12/19/23 1702 MR#: [id number] Acct: [id number] Name: ALISON SANTACRUZ Rep #: [id number] : 1940 83 From: Oliver Kapoor MD PCP: Dr. Eddie Waggoner MD Status:DEP [facility] Y Race: C Location: EN Anesthesia Postop Eval I Sum Postop Eval Completion status Anesthesia document: Postop Eval 1 completed: Yes Anesthesia Postop Eval I Summary Anesthesia Postop Eval I Summary: Anesthesia Postop Eval I: Assessment Summary Airway patent Yes 12/19/23 15:18 [email or web address] Spontaneous unlabored Yes 12/19/23 15:18 [email or web address] respirations Mental status Asleep 12/19/23 15:18 [email or web address] nausea No 12/19/23 15:18 [email or web address] Vomiting No 12/19/23 15:18 [email or web address] Anesthesia Postop Eval I: Fluid Summary Crystalloid volume administer 30 12/19/23 15:18 [email or web address] (ml) Colloids volume administered ( ml) Blood Product volume administered (ml) Total IV fluid infused 30 12/19/23 15:18 [email or web address] Anesthesia Postop Eval I: Summary Notes Anesthesia Complication No 12/19/23 15:18 [email or web address] Anesthesia Complication Comment: Post-operative progress note Anesthesia: Postop Eval II Evaluation Mental status: Awake and Calm Pain Level: 0 nausea: No Vomiting: No Complications Anesthesia Complication: No 12/19/23 1703 Date Oliver Kapoor MD Cosigner Signature: Date CC: Signed Normal [facility] Gastroenterology Visit Repor ton 11-27-2023 Gastroenterology Visit Report [facility] Gastroenterology [address] [address] OFFICE VISIT Date of Service: 11/27/23 MR#: [id number] Acct: [id number] Name: ALISON SANTACRUZ Rep #: [id number] : 1940 Provider: LIZZETTE Edwards Age/Sex: 83/F Location: [facility] Status: Signed Intake Vital Signs 08/09/23 09:12 Height 5 ft 5 in Intake Visit Reasons: Hemorrhoids Chief Complaint: hemrrhoids, nausea Allergies Iodinated Contrast Media Allergy (Verified 11/17/23 13:31) Rash atorvastatin (From Lipitor) Adverse Reaction (Verified 11/17/23 13:31) Upset Stomach bupropion (From Wellbutrin) Adverse Reaction (Verified 11/17/23 13:31) Other paroxetine (From Paxil) Adverse Reaction (Verified 11/17/23 13:31) Alicia poorly rosuvastatin (From Crestor) Adverse Reaction (Verified 11/17/23 13:31) Upset Stomach sertraline (From Zoloft) Adverse Reaction (Verified 11/17/23 13:31) Other simvastatin (From Zocor) Adverse Reaction (Verified 11/17/23 13:31) Upset Stomach Medications ???Medication ???Instructions ???Recorded ???Confirmed ???Type lutein 20 mg capsule 20 mg PO DAILY 07/04/16 07/19/23 History amlodipine 5 mg tablet 5 mg PO DAILY 07/14/22 11/17/23 History folic acid 1 mg tablet 1 mg PO DAILY 07/14/22 11/17/23 History glucosamine 750 qn-soiipwwbrlp-yzi 1 tab PO DAILY 07/14/22 11/17/23 History no1 644 mg-C 30 mg-liset 1 mg tablet (Osteo Bi-Flex Triple Strength) levothyroxine 137 mcg tablet 137 mcg PO DAILY 07/14/22 11/17/23 History multivitamin 1 tab PO DAILY 07/14/22 11/17/23 History omega 2-kbt-diu-fish oil 60 mg-90 1 cap PO DAILY 07/14/22 11/17/23 History mg-500 mg capsule (Fish Oil) citalopram 40 mg tablet (Celexa) 40 mg PO DAILY 30 days #30 tabs 03/08/23 11/17/23 Rx trazodone 100 mg tablet 100 mg PO QHS 08/09/23 11/17/23 History buspirone 5 mg tablet 5 mg PO BID 11/17/23 11/17/23 History Have you fallen in the past year?: No Nurse's Note: OV 9.23.24 Pt reports that she is here to discuss possible hemorrhoid banding. Pt states that she has a terrible time going to the bathroom and does not want to continues having to take as many laxatives and stool softeners as she is. States that her last colonoscopy was 7-8 years ago. [facility] Medical History Abnormal EKG Varicose veins of both lower extremities Thrombocytopenia Polyp of colon Hyperlipidemia Adjustment disorder Insomnia IBS (irritable bowel syndrome) Bereavement Panic disorder Generalized anxiety disorder Major depressive disorder, recurrent severe without psychotic features Hypothyroid Hypertension Leukopenia Surgical History Trigger finger of left thumb History of reverse total replacement of left shoulder joint H/O varicose vein ligation History of tonsillectomy and adenoidectomy History of hysterectomy Family History Mother Hypertension Father Hypertension Depression CVA (cerebral vascular accident) Bladder cancer Brother Cancer Social History Smoking Status: Never smoker alcohol intake: current alcohol intake frequency: holidays/special occasions only substance use type: does not use HPI HPI Chief Complaint: hemrrhoids, nausea Details: ALISON SANTACRUZ, is a 83 F who presents to the office today for establishment with [facility]. Pt has a PMHx of valvular heart disease, thrombocytopenia, HLD, HTN, hypothyroid, IBS and anxiety. SHe is here today for her constipation which she feels is causing her constipation. She had a colonoscopy about [address] Mendenhall with hemorrhoids and a few polyps. She feels her stool is too small and has a hard time passing around the hemorrhoids. She does not feel any external hemorrhoids. She will take Dulcolax and miralax on occasion to relieve her constipation but does not want to take this forever. She has complaints of a nervous stomach and nausea in the morning. She feels this is related to her anxiety and she takes citalopram and BuSpar. She has a family hx of colon cancer and pancreatic cancer. ROS Const Constitutional: Positive for headache(s); No fatigue, fever(s) or weight change ENT ENT: Positive for headache(s); No difficulty swallowing Gastro GI: Positive for abdominal pain, bloating, change in bowel habits, constipation, heartburn, excessive flatus and nausea/dyspepsia; No belching, change in stool character, coffee ground emesis, cramping, diarrhea, difficulty swallowing, feeling full early, incontinent of stools, Vomiting blood/hematemesis, Blood in stool, loose stools, Black,tarry stools, pain with swallowing, vomiting or other Musc Musculoskeletal: Posi (more content not included)... Normal [facility] Sinus/Facial Boneon 10-27-19 Sinus/Facial Bone [facility] Imaging Services [address] [place], [place] [address] Sinus/Facial Bone MR#: [id number] Acct: [id number] Name: ALISON SANTACRUZ Rep #: [id number] : 1940 F 83 From: Ramon toledo MD PCP: Dr. Eddie Waggoner MD Status: REG CLI Study: Sinus/Facial Bone Date of Exam: 10/27/23 Exam# [id number] Ordering Dr: Balaji Avitia MD [id number] STUDY: CT MAXILLOFACIAL SINUSES REASON FOR EXAM: Female, 83 years old. SINUSITIS RADIATION DOSAGE (If Supplied By Facility): CTDIvol = ( 33.06 ) mGy, DLP = ( 813.19 ) mGycm TECHNIQUE: The patient was scanned in a multi detector CT scanner. High resolution axial imaging was performed without the administration of intravenous contrast material. Sagittal and coronal images were reconstructed. Individualized dose optimization techniques were used for this CT. COMPARISON: None. FINDINGS: Small benign appearing cervical lymph nodes. FRONTAL SINUSES: Normal aeration, without mucosal inflammatory disease. ETHMOIDAL SINUSES: Normal aeration, without mucosal inflammatory disease. MAXILLARY SINUSES: Normal aeration, without mucosal inflammatory disease. SPHENOIDAL SINUSES: Normal aeration, without mucosal inflammatory disease. There is patency of the bilateral maxillary infundibuli with normal uncinate processes, ethmoid bullae, and hiatus semilunaris. Normal bilateral middle turbinates. Normal bilateral inferior turbinates. Normal midline nasal septum. There is patency of the bilateral nasal airways. The visualized osseous structures are normal. The visualized bilateral orbital contents are normal. CT/Sinus/Facial Bone IMPRESSION: Normal CT examination of the maxillofacial sinuses. Electronically Signed: Ramon Mendes MD at 10:37 EDT , CC: Dr. Balaji Avitia MD; Dr. Eddie Waggoner MD Job Placement Counselor: Signed Normal [facility] CBC W/Diff, Automatedon 10-05 Absolute Lymph 1.39 X10 3/uL Normal 0.83-4.51 [facility] Comment on above: Order Comment: Order Date: 10/26/23 Order Info: [id number] - CBCD Performed By: #### L 500.4100, L501.9520, L100.0100, L500.4050 #### [facility] [address] [place], [address] Absolute Neut 2.8 X10 3/uL Normal 2.0-7.7 [facility] Comment on above: Order Comment: Order Date: 10/26/23 Order Info: [id number] - CBCD Performed By: #### L 500.4100, L501.9520, L100.0100, L500.4050 #### [facility] [address] [place], [address] Basophils/100 WBC (Bld) 0.8 % Normal 0-1 [facility] Comment on above: Order Comment: Order Date: 10/26/23 Order Info: [id number] - CBCD Performed By: #### L 500.4100, L501.9520, L100.0100, L500.4050 #### [facility] [address] [place], [address] Eosinophils/100 WBC (Bld) 4.0 % Normal 0-5 [facility] Comment on above: Order Comment: Order Date: 10/26/23 Order Info: [id number] - CBCD Performed By: #### L 500.4100, L501.9520, L100.0100, L500.4050 #### [facility] [address] [place], [address] Erythrocyte distribution width (RBC) [Ratio] 11.9 % Normal 11.6-14.6 [facility] Comment on above: Order Comment: Order Date: 10/26/23 Order Info: 018- - CBCD Performed By: #### L 500.4100, L501.9520, L100.0100, L500.4050 #### [facility] [address] [place], [address] Hematocrit (Bld) [Volume fraction] 35.4 % Low 37-47 [facility] Comment on above: Order Comment: Order Date: 10/26/23 Order Info: 018- - CBCD Performed By: #### L 500.4100, L501.9520, L100.0100, L500.4050 #### [facility] [address] [place], [address] Hemoglobin (Bld) [Mass/Vol] 12.0 g/dL Normal 12.0-15.0 [facility] Comment on above: Order Comment: Order Date: 10/26/23 Order Info: [id number] - CBCD Performed By: #### L 500.4100, L501.9520, L100.0100, L500.4050 #### [facility] [address] [place], [address] IG% 0.600 Normal 0.0-0.9 [facility] Comment on above: Order Comment: Order Date: 10/26/23 Order Info: [id number] - CBCD Result Comment: IG% - Immature Granulocytes (promyelocytes, myelocytes and metamyelocytes) > 1% indicates that a LEFT SHIFT is Present. Performed By: #### L 500.4100, L501.9520, L100.0100, L500.4050 #### [facility] [address] [place], [address] Lymphocytes/100 WBC (Bld) 29.1 % Normal 19-41 [facility] Comment on above: Order Comment: Order Date: 10/26/23 Order Info: [id number]- - CBCD Performed By: #### L 500.4100, L501.9520, L100.0100, L500.4050 #### [facility] [address] [place], [address] MCH (RBC) [Entitic mass] 30.2 pg Normal 27.0-32.0 [facility] Comment on above: Order Comment: Order Date: 10/26/23 Order Info: [id number] - CBCD Performed By: #### L 500.4100, L501.9520, L100.0100, L500.4050 #### [facility] [address] [place], [address] MCHC (RBC) [Mass/Vol] 33.9 g/dL Normal 32-36 [facility] Comment on above: Order Comment: Order Date: 10/26/23 Order Info: [id number] - CBCD Performed By: #### L 500.4100, L501.9520, L100.0100, L500.4050 #### [facility] [address] [place], [address] MCV (RBC) [Entitic vol] 88.9 fL Normal 81-99 [facility] Comment on above: Order Comment: Order Date: 10/26/23 Order Info: [id number] - CBCD Performed By: #### L 500.4100, L501.9520, L100.0100, L500.4050 #### [facility] [address] [place], [address] Monocytes/100 WBC (Bld) 6.9 % Normal 0-10 [facility] Comment on above: Order Comment: Order Date: 10/26/23 Order Info: [id number] - CBCD Performed By: #### L 500.4100, L501.9520, L100.0100, L500.4050 #### [facility] [address] [place], [address] Neutrophils/100 WBC (Bld) 58.6 % Normal 47-70 [facility] Comment on above: Order Comment: Order Date: 10/26/23 Order Info: 018- - CBCD Performed By: #### L 500.4100, L501.9520, L100.0100, L500.4050 #### [facility] [address] [place], [address] Nucleated RBC (Bld) [#/Vol] 0 10*3/uL Normal 0-5 [facility] Comment on above: Order Comment: Order Date: 10/26/23 Order Info: 0184- - CBCD Performed By: #### L 500.4100, L501.9520, L100.0100, L500.4050 #### [facility] [address] [place], [address] Platelet mean volume (Bld) [Entitic vol] 8.7 fL Normal 6.2-12.0 [facility] Comment on above: Order Comment: Order Date: 10/26/23 Order Info: [id number] - CBCD Performed By: #### L 500.4100, L501.9520, L100.0100, L500.4050 #### [facility] [address] [place], [address] Platelets (Bld) [#/Vol] 198 10*3/uL Normal 150-450 [facility] Comment on above: Order Comment: Order Date: 10/26/23 Order Info: [id number] - CBCD Performed By: #### L 500.4100, L501.9520, L100.0100, L500.4050 #### [facility] [address] [place], [address] RBC (Bld) [#/Vol] 3.98 10*6/uL Low 4.2-5.4 [facility] Comment on above: Order Comment: Order Date: 10/26/23 Order Info: [id number] - CBCD Performed By: #### L 500.4100, L501.9520, L100.0100, L500.4050 #### [facility] [address] [place], [address] RDW SD 37.7 fl Normal 35.1-43.9 [facility] Comment on above: Order Comment: Order Date: 10/26/23 Order Info: [id number] - CBCD Performed By: #### L 500.4100, L501.9520, L100.0100, L500.4050 #### [facility] [address] [place], [address] WBC (Bld) [#/Vol] 4.8 10*3/uL Normal 4.4-11.0 [facility] Comment on above: Order Comment: Order Date: 10/26/23 Order Info: [id number] - CBCD Performed By: #### L 500.4100, L501.9520, L100.0100, L500.4050 #### [facility] [address] [place], [address] Comprehensive Metabolic Prof ilon 10-26-2023 Albumin [Mass/Vol] 3.6 g/dL Normal 3.2-5.0 [facility] Comment on above: Order Comment: Order Date: 10/26/23Order Info: 86-1 - CMPOrder Info: [id number] - LIPIDOrder Info: [id number] - TSH Performed By: #### L 500.4100, L501.9520, L100.0100, L500.4050 ####[facility] [address] [place], [address] Albumin/Globulin [Mass ratio] 1.1 {ratio} Normal 0.9-2.4 [facility] Comment on above: Order Comment: Order Date: 10/26/23Order Info: [id number] - CMPOrder Info: [id number] - LIPIDOrder Info: [id number] - TSH Performed By: #### L 500.4100, L501.9520, L100.0100, L500.4050 ####[facility] [address] [place], [address] ALK P 70 U/L Normal 45-117 [facility] Comment on above: Order Comment: Order Date: 10/26/23Order Info: [id number] - CMPOrder Info: [id number] - LIPIDOrder Info: [id number] - TSH Performed By: #### L 500.4100, L501.9520, L100.0100, L500.4050 ####[facility] [address] [place], [address] ALT [Catalytic activity/Vol] 26 U/L Normal 13-56 [facility] Comment on above: Order Comment: Order Date: 10/26/23Order Info: [id number] - CMPOrder Info: [id number] - LIPIDOrder Info: [id number] - TSH Performed By: #### L 500.4100, L501.9520, L100.0100, L500.4050 ####[facility] [address] [place], [address] AST [Catalytic activity/Vol] 23 U/L Normal 15-37 [facility] Comment on above: Order Comment: Order Date: 10/26/23Order Info: [id number] - CMPOrder Info: [id number] - LIPIDOrder Info: [id number] - TSH Performed By: #### L 500.4100, L501.9520, L100.0100, L500.4050 ####[facility] [address] [place], [address] Bilirubin [Mass/Vol] 0.70 mg/dL Normal 0.20-1.00 [facility] Comment on above: Order Comment: Order Date: 10/26/23Order Info: [id number] - CMPOrder Info: [id number] - LIPIDOrder Info: [id number] - TSH Result Comment: For patients on eltrombopag therapy, use of Dimension [place] TBIL is not recommended. Performed By: #### L 500.4100, L501.9520, L100.0100, L500.4050 ####[facility] [address] [place], [address] BUN/CRE 16.8 RATIO Normal 10-20 [facility] Comment on above: Order Comment: Order Date: 10/26/23Order Info: [id number] - CMPOrder Info: [id number] - LIPIDOrder Info: [id number] - TSH Performed By: #### L 500.4100, L501.9520, L100.0100, L500.4050 ####[facility] [address] [place], [address] CA,Total 8.7 mg/dL Normal 8.5-10.1 [facility] Comment on above: Order Comment: Order Date: 10/26/23Order Info: [id number] - CMPOrder Info: [id number] - LIPIDOrder Info: [id number] - TSH Performed By: #### L 500.4100, L501.9520, L100.0100, L500.4050 ####[facility] [address] [place], [address] Chloride [Moles/Vol] 104 mmol/L Normal 98-107 [facility] Comment on above: Order Comment: Order Date: 10/26/23Order Info: 785- - CMPOrder Info: [id number] - LIPIDOrder Info: [id number] - TSH Performed By: #### L 500.4100, L501.9520, L100.0100, L500.4050 ####[facility] [address] [place], [address] CO2 [Moles/Vol] 30.0 mmol/L Normal 21.0-32.0 [facility] Comment on above: Order Comment: Order Date: 10/26/23Order Info: [id number]- - CMPOrder Info: [id number] - LIPIDOrder Info: 3 - TSH Performed By: #### L 500.4100, L501.9520, L100.0100, L500.4050 ####[facility] [address] [place], [address] Creatinine [Mass/Vol] 0.83 mg/dL Normal 0.55-1.02 [facility] Comment on above: Order Comment: Order Date: 10/26/23Order Info: [id number] - CMPOrder Info: [id number] - LIPIDOrder Info: [id number] - TSH Result Comment: The validity of the calculated GFR GFRAA in patients over 70 years has not been determined. Clinical correlation is essential. Performed By: #### L 500.4100, L501.9520, L100.0100, L500.4050 ####[facility] [address] [place], [address] EST GFR - AA 84 mL/min Normal >60 [facility] Comment on above: Order Comment: Order Date: 10/26/23Order Info: [id number] - CMPOrder Info: [id number] - LIPIDOrder Info: 3 - TSH Result Comment: Afri can [place] GFR Calc Performed By: #### L 500.4100, L501.9520, L100.0100, L500.4050 ####[facility] [address] [place], [address] GAP 5 Normal 5-15 [facility] Comment on above: Order Comment: Order Date: 10/26/23Order Info: 07-1 - CMPOrder Info: [id number] - LIPIDOrder Info: [id number] - TSH Performed By: #### L 500.4100, L501.9520, L100.0100, L500.4050 ####[facility] [address] [place], [address] GFR/1.73 sq M.predicted among non-blacks MDRD (S/P/Bld) [Vol rate/Area] 69 mL/min/{1.73_m2} Normal >60 [facility] Comment on above: Order Comment: Order Date: 10/26/23Order Info: [id number]- - CMPOrder Info: [id number] - LIPIDOrder Info: [id number] - TSH Result Comment: Non- GFR Calc Performed By: #### L 500.4100, L501.9520, L100.0100, L500.4050 ####[facility] [address] [place], [address] Globulin (S) [Mass/Vol] 3.4 g/dL Normal 2.2-4.2 [facility] Comment on above: Order Comment: Order Date: 10/26/23Order Info: 07 - CMPOrder Info: [id number] - LIPIDOrder Info: [id number] - TSH Performed By: #### L 500.4100, L501.9520, L100.0100, L500.4050 ####[facility] [address] [place], [address] Glucose [Mass/Vol] 104 mg/dL Normal 74-106 [facility] Comment on above: Order Comment: Order Date: 10/26/23Order Info: 07- - CMPOrder Info: [id number] - LIPIDOrder Info: 6-3 - TSH Result Comment: Fast ing Glucose result from 100 to 125 mg/dL suggests IMPAIRED HOMEOSTASIS per A.D.A. criteria. Performed By: #### L 500.4100, L501.9520, L100.0100, L500.4050 ####[facility] [address] [place], [address] Potassium [Moles/Vol] 3.7 mmol/L Normal 3.5-5.1 [facility] Comment on above: Order Comment: Order Date: 10/26/23Order Info: 86-1 - CMPOrder Info: [id number] - LIPIDOrder Info: [id number] - TSH Performed By: #### L 500.4100, L501.9520, L100.0100, L500.4050 ####[facility] [address] [place], [address] Sodium [Moles/Vol] 139 mmol/L Normal 136-145 [facility] Comment on above: Order Comment: Order Date: 10/26/23Order Info: [id number] - CMPOrder Info: [id number] - LIPIDOrder Info: [id number] - TSH Performed By: #### L 500.4100, L501.9520, L100.0100, L500.4050 ####[facility] [address] [place], [address] T PROT 7.0 g/dL Normal 6.4-8.2 [facility] Comment on above: Order Comment: Order Date: 10/26/23Order Info: [id number] - CMPOrder Info: [id number] - LIPIDOrder Info: [id number] - TSH Performed By: #### L 500.4100, L501.9520, L100.0100, L500.4050 ####[facility] [address] [place], [address] Urea nitrogen [Mass/Vol] 14 mg/dL Normal 7-18 [facility] Comment on above: Order Comment: Order Date: 10/26/23Order Info: [id number] - CMPOrder Info: [id number] - LIPIDOrder Info: [id number] - TSH Performed By: #### L 500.4100, L501.9520, L100.0100, L500.4050 ####[facility] [address] [place], [address] Lipid Profileon 10-26-2023 Cholesterol [Mass/Vol] 254 mg/dL High 200 [facility] Comment on above: Order Comment: Order Date: 10/26/23Order Info: [id number] - CMPOrder Info: [id number] - LIPIDOrder Info: [id number] - TSH Result Comment: <200 mg/dL Desirable 200-240 mg/dL Borderline >240 mg/dL High Risk Performed By: #### L 500.4100, L501.9520, L100.0100, L500.4050 ####[facility] [address] [place], [address] Cholesterol in HDL [Mass/Vol] 56 mg/dL Normal [facility] Comment on above: Order Comment: Order Date: 10/26/23Order Info: [id number]- - CMPOrder Info: [id number] - LIPIDOrder Info: 6-3 - TSH Result Comment: The drugs N-Acetylcysteine and Metamizole may falsely depress this assay. Reference Range HDL <40 mg/dL Low HDL Cholesterol HDL >or= 60 mg/dL High HDL Cholesterol Performed By: #### L 500.4100, L501.9520, L100.0100, L500.4050 ####[facility] [address] [place], [address] Cholesterol in LDL [Mass/Vol] 150 mg/dL High 0-130 [facility] Comment on above: Order Comment: Order Date: 10/26/23Order Info: [id number] - CMPOrder Info: [id number] - LIPIDOrder Info: [id number] - TSH Performed By: #### L 500.4100, L501.9520, L100.0100, L500.4050 ####[facility] [address] [place], [address] Cholesterol in VLDL [Mass/Vol] 48 mg/dL High 5-40 [facility] Comment on above: Order Comment: Order Date: 10/26/23Order Info: [id number] - CMPOrder Info: [id number] - LIPIDOrder Info: [id number] - TSH Performed By: #### L 500.4100, L501.9520, L100.0100, L500.4050 ####[facility] [address] [place], [address] Triglyceride [Mass/Vol] 242 mg/dL High [facility] Comment on above: Order Comment: Order Date: 10/26/23Order Info: [id number] - CMPOrder Info: [id number] - LIPIDOrder Info: [id number] - TSH Result Comment: The drugs N-Acetylcysteine and Metamizole may falsely depress this assay. Serum Triglycerides Reference Interval Normal <150 mg/dL Borderline high 150 - 199 mg/dL High 200 - 499 mg/dL Very High > or = 500 mg/dL Performed By: #### L 500.4100, L501.9520, L100.0100, L500.4050 ####[facility] [address] [place], [address] Thyroid Stim Hormone (TSH)on 10-26-2023 TSH 3.110 uIU/mL Normal 0.358-3.740 [facility] Comment on above: Order Comment: Order Date: 10/26/23Order Info: [id number] - CMPOrder Info: [id number] - LIPIDOrder Info: [id number] - TSH Performed By: #### L 500.4100, L501.9520, L100.0100, L500.4050 ####[facility] [address] [place], [address] Absolute lymphocyte countOrd ered By: Tila Bailey on 01-17-2023 Lymphocytes Auto (Unsp spec) [#/Vol] 0.50 10*3/uL 0.83-4.51 [facility] Basophil percentageOrdered B y: Tila Bailey on 01-17-2023 Creatinine [Mass/Vol] 1.0 mg/dL 0.55-1.02 [facility] Basophils/100 WBC (Bld) 0.3 % 0-1 [facility] Bilirubin [Mass/Vol] 0.70 mg/dL 0.20-1.00 [facility] Comment on above: For patients on eltr ombopag therapy, use of Dimension [place] TBIL is not recommended. Chloride [Moles/Vol] 105 mmol/L 98-107 [facility] Cholesterol [Mass/Vol] 264 mg/dL <200 [facility] Comment on above: <200 mg/dL Desirable 200-240 mg/dL Borderline >240 mg/dL High Risk Eosinophils/100 WBC (Bld) 2.5 % 0-5 [facility] Glucose [Mass/Vol] 150 mg/dL 74-106 [facility] Comment on above: Fasting Glucose community health greater than or equal to 126 mg/dL suggests DIABETES MELLITUS per A.D.A. criteria. Neutrophils (Bld) [#/Vol] 5.4 10*3/uL 2.0-7.7 [facility] Neutrophils/100 WBC (Bld) 84.7 % 47-70 [facility] Potassium [Moles/Vol] 4.1 mmol/L 3.5-5.1 [facility] Protein [Mass/Vol] 7.9 g/dL 6.4-8.2 [facility] Sodium [Moles/Vol] 139 mmol/L 136-145 [facility] Triglyceride [Mass/Vol] 60 mg/dL <199 [facility] Comment on above: The drugs N-Acetylcy steine and Metamizole may falsely depress this assay.Serum Triglycerides Reference Interval Normal <150 mg/dL Borderline high 150 - 199 mg/dL High 200 - 499 mg/dL Very High > or = 500 mg/dL WBC (Bld) [#/Vol] 6.4 10*3/uL 4.4-11.0 [facility] Blood erythrocytes count (nu mber/volume)Ordered By: Tila Bailey on 01-17-2023 RBC (Bld) [#/Vol] 4.36 10*6/uL 4.2-5.4 [facility] Blood hemoglobin measurement (mass/volume)Ordered By: Tila Bailey on 01-17-2023 Hemoglobin (Bld) [Mass/Vol] 12.7 g/dL 12.0-15.0 [facility] Blood lymphocytes/100 leukoc ytesOrdered By: Tila Bailey on 01-17-2023 Lymphocytes/100 WBC (Bld) 7.9 % 19-41 [facility] Blood manual differential co mment interpretation (narrative result)Ordered By: Tila Bailey on 01-17-2023 Manual differential comment Mehdi (Bld) [Interp] SCANNED [facility] Blood monocytes/100 leukocyt esOrdered By: Tila Bailey on 01-17-2023 Monocytes/100 WBC (Bld) 4.1 % 0-10 [facility] Blood platelet mean volumeOr dered By: Tila Bailey on 01-17-2023 Platelet mean volume (Bld) [Entitic vol] 8.7 fL 6.2-12.0 [facility] Determination of erythrocyte mean corpuscular volume (MCV)Ordered By: Tila Bailey on 01-17-2023 MCV (RBC) [Entitic vol] 89.0 fL 81-99 [facility] Hematocrit Auto (Bld) [Volum e fraction]Ordered By: Tila Bailey on 01-17-2023 Hematocrit (Bld) [Volume fraction] 38.8 % 37-47 [facility] - Chemistry and C hemistry - challengeOrdered By: Tila Bailey on 01-17-2023 GFR/1.73 sq M.predicted among non-blacks MDRD (S/P/Bld) [Vol rate/Area] 54.0000 mL/min/{1.73_m2} >60 [facility] ALP [Catalytic activity/Vol] 70 U/L 45-117 [facility] ALT [Catalytic activity/Vol] 27 U/L 13-56 [facility] CO2 [Moles/Vol] 27.0 mmol/L 21.0-32.0 [facility] Globulin (S) [Mass/Vol] 3.9 g/dL 2.2-4.2 [facility] Urea nitrogen/Creatinine [Mass ratio] 18.3 mg/mg 10-20 [facility] Laboratory - Hematology and Cell countsOrdered By: Tila Bailey on 01-17-2023 Erythrocyte distribution width (RBC) [Entitic vol] 39.1 fL 35.1-43.9 [facility] Erythrocyte distribution width (RBC) [Ratio] 12.0 % 11.6-14.6 [facility] Immature granulocytes/100 WBC (Bld) 0.500 % 0.0-0.9 [facility] Comment on above: IG% - Immature Granu locytes (promyelocytes, myelocytes and metamyelocytes) > 1% indicates that a LEFT SHIFT is Present. MCH (RBC) [Entitic mass] 29.1 pg 27.0-32.0 [facility] Nucleated RBC/100 WBC (Bld) [Ratio] 0 % 0-5 [facility] MCHC Auto (RBC) [Mass/Vol]Or dered By: Tila Bailey on 01-17-2023 MCHC (RBC) [Mass/Vol] 32.7 g/dL 32-36 [facility] No Panel InformationOrdered By: Tila Bailey on 01-17-2023 Estimated GFR (MDRD) Amer 74 mL/min >60 [facility] Comment on above: GFR Calc Estimated GFR (MDRD) Non-Af Amer 61 mL/min >60 [facility] Comment on above: Non- GFR Calc Thyroid Stimulating Hormone (TSH) 0.86 uIU/mL 0.358-3.74 [facility] Vitamin D 25-Hydroxy 102.0 ng/mL [facility] Comment on above: Vitamin D 25(OH) Sta tus Range Deficiency <20 ng/mL (50nmol/L) Insufficiency 20 - 30 ng/mL (50 - 75 nmol/L) Sufficiency 30 - 100 ng/mL (75 - 250 nmol/L) Toxicity >100 ng/mL (>250 nmol/L)Evidence suggests that patients undergoing fluorescein dye angiography can retain small amounts of fluorescein in the body for up to 48 to 72 hours post-treatment. In the cases of patients with renal insufficiency, retention could be much longer. Samples containing fluorescein can produce falsely elevated values when tested with the [employer] Vitamin D assay. With fluorescein interference, observed Vitamin D values can be as high as >150 ng/mL (>375 nmol/L). Samples should be resubmitted post fluorescein clearance to ensure there is no interference with Vitamin D test results. Platelets bldOrdered By: Tila Bailey on 01-17-2023 Platelets (Bld) [#/Vol] 207 10*3/uL 150-450 [facility] Serum or plasma albumin jose martin urement (mass/volume)Ordered By: Tila Bailey on 01-17-2023 Albumin [Mass/Vol] 4.0 g/dL 3.2-5.0 [facility] Serum or plasma albumin/glob ulin mass ratioOrdered By: Tila Bailey on 01-17-2023 Albumin/Globulin [Mass ratio] 1.0 {ratio} 0.9-2.4 [facility] Serum or plasma calcium jose martin urement (mass/volume)Ordered By: Tila Bailey on 01-17-2023 Calcium [Mass/Vol] 9.3 mg/dL 8.5-10.1 [facility] Serum or plasma cholesterol in HDL measurement (mass/volume)Ordered By: Tila Bailey on 01-17-2023 Cholesterol in HDL [Mass/Vol] 81 mg/dL >40 [facility] Comment on above: The drugs N-Acetylcy steine and Metamizole may falsely depress this assay. Reference Range HDL <40 mg/dL Low HDL Cholesterol HDL >or= 60 mg/dL High HDL Cholesterol Serum or plasma cholesterol in VLDL measurement (mass/volume)Ordered By: Tila Bailey on 01-17-2023 Cholesterol in VLDL [Mass/Vol] 12 mg/dL 5-40 [facility] Serum or plasma creatinine m easurement (mass/volume)Ordered By: Tila Bailey on 01-17-2023 Creatinine [Mass/Vol] 0.93 mg/dL 0.55-1.02 [facility] Comment on above: The validity of the calculated GFR & GFRAA in patients over 70 years has not been determined. Clinical correlation is essential. Serum or plasma low density lipoprotein (LDL) cholesterol measurement (mass/volume)Ordered By: Tila Bailey on 01-17-2023 Cholesterol in LDL [Mass/Vol] 171 mg/dL 0-130 [facility] Serum or plasma urea nitroge n measurement (mass/volume)Ordered By: Tila Bailey on 01-17-2023 Urea nitrogen [Mass/Vol] 17 mg/dL 7-18 [facility] Thin prep Papanicolaou smear with manual screeningOrdered By: Tila Bailey on 01-17-2023 Thin prep Papanicolaou smear with manual screening 16 U/L 15-37 [facility] Thin prep Papanicolaou smear with manual screening 7 5-15 [facility] Laboratory - Chemistry and C hemistry - challengeOrdered By: Roxanna Lemus on 09-15-2022 Free T4 [Mass/Vol] 1.19 ng/dL 0.76-1.46 [facility] No Panel InformationOrdered By: Roxanna Lemus on 09-15-2022 Thyroid Stimulating Hormone (TSH) 2.38 uIU/mL 0.358-3.74 [facility] Absolute lymphocyte countOrd ered By: Vernon Garrett on 07-19-2022 Lymphocytes Auto (Unsp spec) [#/Vol] 1.39 10*3/uL 0.83-4.51 [facility] Basophil percentageOrdered B y: Vernon Garrett on 07-19-2022 Basophils/100 WBC (Bld) 0.6 % 0-1 [facility] Bilirubin [Mass/Vol] 0.50 mg/dL 0.20-1.00 [facility] Comment on above: For patients on eltr ombopag therapy, use of Dimension [place] TBIL is not recommended. Chloride [Moles/Vol] 106 mmol/L 98-107 [facility] Eosinophils/100 WBC (Bld) 8.1 % 0-5 [facility] Glucose [Mass/Vol] 119 mg/dL 74-106 [facility] Comment on above: Fasting Glucose resu lt from 100 to 125 mg/dL suggests IMPAIRED HOMEOSTASIS per A.D.A. criteria. LDH [Catalytic activity/Vol] 188 U/L 84-246 [facility] Neutrophils (Bld) [#/Vol] 2.6 10*3/uL 2.0-7.7 [facility] Neutrophils/100 WBC (Bld) 53.9 % 47-70 [facility] Potassium [Moles/Vol] 4.1 mmol/L 3.5-5.1 [facility] Protein [Mass/Vol] 7.5 g/dL 6.4-8.2 [facility] Sodium [Moles/Vol] 139 mmol/L 136-145 [facility] WBC (Bld) [#/Vol] 4.8 10*3/uL 4.4-11.0 [facility] Blood erythrocytes count (nu mber/volume)Ordered By: Vernon Garrett on 07-19-2022 RBC (Bld) [#/Vol] 4.23 10*6/uL 4.2-5.4 [facility] Blood hemoglobin measurement (mass/volume)Ordered By: Vernon Garrett on 07-19-2022 Hemoglobin (Bld) [Mass/Vol] 12.7 g/dL 12.0-15.0 [facility] Blood lymphocytes/100 leukoc ytesOrdered By: Vernon Garrett on 07-19-2022 Lymphocytes/100 WBC (Bld) 28.9 % 19-41 [facility] Blood monocytes/100 leukocyt esOrdered By: Vernon Garrett on 07-19-2022 Monocytes/100 WBC (Bld) 8.3 % 0-10 [facility] Blood platelet mean volumeOr dered By: Vernon Garrett on 07-19-2022 Platelet mean volume (Bld) [Entitic vol] 8.4 fL 6.2-12.0 [facility] Determination of erythrocyte mean corpuscular volume (MCV)Ordered By: Vernon Garrett on 07-19-2022 MCV (RBC) [Entitic vol] 89.6 fL 81-99 [facility] Erythrocyte sedimentation ra teOrdered By: Vernon Garrett on 07-19-2022 ESR (Bld) [Velocity] 12 mm/h 0-30 [facility] Hematocrit Auto (Bld) [Volum e fraction]Ordered By: Vernon Garrett on 07-19-2022 Hematocrit (Bld) [Volume fraction] 37.9 % 37-47 [facility] Hemoglobin in reticulocytes (mass per reticulocyte)Ordered By: Vernon Garrett on 07-19-2022 Hemoglobin (Reticulocytes) [Entitic mass] 32.7 pg 30-35 [facility] Iron measurement (mass/mass) Ordered By: Vernon Garrett on 07-19-2022 Iron (Unsp spec) [Mass/Mass] 55 ug/dL 50-170 [facility] - Chemistry and C hemistry - challengeOrdered By: Vernon Garrett on 07-19-2022 ALP [Catalytic activity/Vol] 106 U/L 45-117 [facility] ALT [Catalytic activity/Vol] 30 U/L 13-56 [facility] CO2 [Moles/Vol] 27.0 mmol/L 21.0-32.0 [facility] Cobalamin (Vitamin B12) [Mass/Vol] 428 pg/mL 211-911 [facility] Globulin (S) [Mass/Vol] 3.6 g/dL 2.2-4.2 [facility] Urea nitrogen/Creatinine [Mass ratio] 21.3 mg/mg 10-20 [facility] - Hematology and Cell countsOrdered By: Vernon Garrett on 07-19-2022 Erythrocyte distribution width (RBC) [Entitic vol] 41.0 fL 35.1-43.9 [facility] Erythrocyte distribution width (RBC) [Ratio] 12.4 % 11.6-14.6 [facility] Immature granulocytes/100 WBC (Bld) 0.200 % 0.0-0.9 [facility] Comment on above: IG% - Immature Granu locytes (promyelocytes, myelocytes and metamyelocytes) > 1% indicates that a LEFT SHIFT is Present. MCH (RBC) [Entitic mass] 30.0 pg 27.0-32.0 [facility] Nucleated RBC/100 WBC (Bld) [Ratio] 0 % 0-5 [facility] MCHC Auto (RBC) [Mass/Vol]Or dered By: Vernon Garrett on 07-19-2022 MCHC (RBC) [Mass/Vol] 33.5 g/dL 32-36 [facility] No Panel InformationOrdered By: Vernon Garrett on 07-19-2022 Estimated GFR (MDRD) Amer 78 mL/min >60 [facility] Comment on above: GFR Calc Estimated GFR (MDRD) Non-Af Amer 64 mL/min >60 [facility] Comment on above: Non- GFR Calc Immature Reticulocyte Fraction 5.80 % 3.00-15.90 [facility] Reticulocyte Count 1.11 % 0.5-1.5 [facility] Total Iron Binding Capacity 319 ug/dL 250-450 [facility] Platelets bldOrdered By: David Garrett on 07-19-2022 Platelets (Bld) [#/Vol] 182 10*3/uL 150-450 [facility] Serum or plasma C reactive p rotein measurement (mass/volume)Ordered By: Vernon Garrett on 07-19-2022 CRP [Mass/Vol] mg/L 0.0-3.0 [facility] Comment on above: C-Reactive Protein ( CRP) provides useful information for thediagnosis, therapy and monitoring of inflammatory processesand associated diseases. For the evaluation of Relative Riskfor Cardiovascular Disease, a High Sensitivity CRP (HSCRP)should be ordered. Serum or plasma albumin jose martin urement (mass/volume)Ordered By: Vernon Hola on 07-19-2022 Albumin [Mass/Vol] 3.9 g/dL 3.2-5.0 [facility] Serum or plasma albumin/glob ulin mass ratioOrdered By: [facility] Albumin/Globulin [Mass ratio] 1.1 {ratio} 0.9-2.4 [facility] Serum or plasma calcium jose martin urement (mass/volume)Ordered By: Vernon Garrett on 07-19-2022 Calcium [Mass/Vol] 9.1 mg/dL 8.5-10.1 [facility] Serum or plasma creatinine m easurement (mass/volume)Ordered By: Vernon Garrett on 07-19-2022 Creatinine [Mass/Vol] 0.89 mg/dL 0.55-1.02 [facility] Comment on above: The validity of the calculated GFR & GFRAA in patients over 70 years has not been determined. Clinical correlation is essential. Serum or plasma ferritin manuela surement (mass/volume)Ordered By: Vernon Garrett on 07-19-2022 Ferritin [Mass/Vol] 55 ng/mL 8-252 [facility] Serum or plasma folate measu rement (mass/volume)Ordered By: Vernon Garrett on 07-19-2022 Folate [Mass/Vol] 49.60 ng/mL 3.1-55.4 [facility] Serum or plasma iron saturat ion measurement (mass fraction)Ordered By: Vernon Garrett on 07-19-2022 Iron saturation [Mass fraction] 17.2 % 15.0-55.0 [facility] Serum or plasma urea nitroge n measurement (mass/volume)Ordered By: Vernon Garrett on 07-19-2022 Urea nitrogen [Mass/Vol] 19 mg/dL 7-18 [facility] Thin prep Papanicolaou smear with manual screeningOrdered By: Vernon Garrett on 07-19-2022 Thin prep Papanicolaou smear with manual screening 20 U/L 15-37 [facility] Thin prep Papanicolaou smear with manual screening 6 5-15 [facility] Absolute lymphocyte countOrd ered By: Roxanna Lemus on 07-05-2022 Lymphocytes Auto (Unsp spec) [#/Vol] 1.06 10*3/uL 0.83-4.51 [facility] Basophil percentageOrdered B y: Roxanna Lemus on 07-05-2022 Basophils/100 WBC (Bld) 0.7 % 0-1 [facility] Eosinophils/100 WBC (Bld) 9.7 % 0-5 [facility] Neutrophils (Bld) [#/Vol] 1.2 10*3/uL 2.0-7.7 [facility] Neutrophils/100 WBC (Bld) 41.5 % 47-70 [facility] WBC (Bld) [#/Vol] 2.8 10*3/uL 4.4-11.0 [facility] Blood erythrocytes count (nu mber/volume)Ordered By: Roxanna Lemus on 07-05-2022 RBC (Bld) [#/Vol] 4.23 10*6/uL 4.2-5.4 [facility] Blood hemoglobin measurement (mass/volume)Ordered By: Roxanna Lemus on 07-05-2022 Hemoglobin (Bld) [Mass/Vol] 12.6 g/dL 12.0-15.0 [facility] Blood lymphocytes/100 leukoc ytesOrdered By: Roxanna Lemus on 07-05-2022 Lymphocytes/100 WBC (Bld) 38.0 % 19-41 [facility] Blood monocytes/100 leukocyt esOrdered By: Roxanna Lemus on 07-05-2022 Monocytes/100 WBC (Bld) 9.7 % 0-10 [facility] Blood platelet mean volumeOr dered By: Roxanna Lemus on 07-05-2022 Platelet mean volume (Bld) [Entitic vol] 8.9 fL 6.2-12.0 [facility] Determination of erythrocyte mean corpuscular volume (MCV)Ordered By: Roxanna Lemus on 07-05-2022 MCV (RBC) [Entitic vol] 90.5 fL 81-99 [facility] Hematocrit Auto (Bld) [Volum e fraction]Ordered By: Roxanna eLmus on 07-05-2022 Hematocrit (Bld) [Volume fraction] 38.3 % 37-47 [facility] - Hematology and Cell countsOrdered By: Roxanna Lemus on 07-05-2022 Erythrocyte distribution width (RBC) [Entitic vol] 41.6 fL 35.1-43.9 [facility] Erythrocyte distribution width (RBC) [Ratio] 12.6 % 11.6-14.6 [facility] Immature granulocytes/100 WBC (Bld) 0.400 % 0.0-0.9 [facility] Comment on above: IG% - Immature Granu locytes (promyelocytes, myelocytes and metamyelocytes) > 1% indicates that a LEFT SHIFT is Present. MCH (RBC) [Entitic mass] 29.8 pg 27.0-32.0 [facility] Nucleated RBC/100 WBC (Bld) [Ratio] 0 % 0-5 [facility] MCHC Auto (RBC) [Mass/Vol]Or dered By: Roxanna Lemus on 07-05-2022 MCHC (RBC) [Mass/Vol] 32.9 g/dL 32-36 [facility] No Panel InformationOrdered By: Sandra Sheppard on 07-05-2022 Thyroid Stimulating Hormone (TSH) 4.94 uIU/mL 0.358-3.74 [facility] Platelets bldOrdered By: Abhijit Lemus on 07-05-2022 Platelets (Bld) [#/Vol] 198 10*3/uL 150-450 [facility] Absolute lymphocyte countOrd ered By: Roxanna Lemus on 06-07-2022 Lymphocytes Auto (Unsp spec) [#/Vol] 1.09 10*3/uL 0.83-4.51 [facility] Basophil percentageOrdered B y: Roxanna Lemus on 06-07-2022 Basophils/100 WBC (Bld) 1.1 % 0-1 [facility] Bilirubin [Mass/Vol] 1.10 mg/dL 0.20-1.00 [facility] Comment on above: For patients on eltr ombopag therapy, use of Dimension [place] TBIL is not recommended. Chloride [Moles/Vol] 107 mmol/L 98-107 [facility] Cholesterol [Mass/Vol] 252 mg/dL <200 [facility] Comment on above: <200 mg/dL Desirable 200-240 mg/dL Borderline >240 mg/dL High Risk Eosinophils/100 WBC (Bld) 10.7 % 0-5 [facility] Glucose [Mass/Vol] 94 mg/dL 74-106 [facility] Neutrophils (Bld) [#/Vol] 1.1 10*3/uL 2.0-7.7 [facility] Neutrophils/100 WBC (Bld) 39.6 % 47-70 [facility] Potassium [Moles/Vol] 3.9 mmol/L 3.5-5.1 [facility] Protein [Mass/Vol] 7.4 g/dL 6.4-8.2 [facility] Sodium [Moles/Vol] 139 mmol/L 136-145 [facility] Triglyceride [Mass/Vol] 94 mg/dL <199 [facility] Comment on above: The drugs N-Acetylcy steine and Metamizole may falsely depress this assay.Serum Triglycerides Reference Interval Normal <150 mg/dL Borderline high 150 - 199 mg/dL High 200 - 499 mg/dL Very High > or = 500 mg/dL WBC (Bld) [#/Vol] 2.7 10*3/uL 4.4-11.0 [facility] Blood erythrocytes count (nu mber/volume)Ordered By: Roxanna Lemus on 06-07-2022 RBC (Bld) [#/Vol] 4.13 10*6/uL 4.2-5.4 [facility] Blood hemoglobin measurement (mass/volume)Ordered By: Roxanna Lemus on 06-07-2022 Hemoglobin (Bld) [Mass/Vol] 12.1 g/dL 12.0-15.0 [facility] Blood lymphocytes/100 leukoc ytesOrdered By: Roxanna Lemus on 06-07-2022 Lymphocytes/100 WBC (Bld) 40.1 % 19-41 [facility] Blood monocytes/100 leukocyt esOrdered By: Roxanna Lemus on 06-07-2022 Monocytes/100 WBC (Bld) 8.1 % 0-10 [facility] Blood platelet mean volumeOr dered By: Roxanna Lemus on 06-07-2022 Platelet mean volume (Bld) [Entitic vol] 8.8 fL 6.2-12.0 [facility] Determination of erythrocyte mean corpuscular volume (MCV)Ordered By: Roxanna Lemus on 06-07-2022 MCV (RBC) [Entitic vol] 88.6 fL 81-99 [facility] Hematocrit Auto (Bld) [Volum e fraction]Ordered By: Roxanna Lemus on 06-07-2022 Hematocrit (Bld) [Volume fraction] 36.6 % 37-47 [facility] - Chemistry and C hemistry - challengeOrdered By: Roxanna Lemus on 06-07-2022 ALP [Catalytic activity/Vol] 84 U/L 45-117 [facility] ALT [Catalytic activity/Vol] 26 U/L 13-56 [facility] CO2 [Moles/Vol] 27.0 mmol/L 21.0-32.0 [facility] Globulin (S) [Mass/Vol] 3.6 g/dL 2.2-4.2 [facility] Urea nitrogen/Creatinine [Mass ratio] 19.4 mg/mg 10-20 [facility] - Hematology and Cell countsOrdered By: Roxanna Lemus on 06-07-2022 Erythrocyte distribution width (RBC) [Entitic vol] 41.2 fL 35.1-43.9 [facility] Erythrocyte distribution width (RBC) [Ratio] 12.8 % 11.6-14.6 [facility] Immature granulocytes/100 WBC (Bld) 0.400 % 0.0-0.9 [facility] Comment on above: IG% - Immature Granu locytes (promyelocytes, myelocytes and metamyelocytes) > 1% indicates that a LEFT SHIFT is Present. MCH (RBC) [Entitic mass] 29.3 pg 27.0-32.0 [facility] Nucleated RBC/100 WBC (Bld) [Ratio] 0 % 0-5 [facility] MCHC Auto (RBC) [Mass/Vol]Or dered By: Roxanna Lemus on 06-07-2022 MCHC (RBC) [Mass/Vol] 33.1 g/dL 32-36 [facility] No Panel InformationOrdered By: Roxanna Lemus on 06-07-2022 Estimated GFR (MDRD) Amer 79 mL/min >60 [facility] Comment on above: GFR Calc Estimated GFR (MDRD) Non-Af Amer 65 mL/min >60 [facility] Comment on above: Non- GFR Calc Thyroid Stimulating Hormone (TSH) 32.30 uIU/mL 0.358-3.74 [facility] Platelets bldOrdered By: Abhijit Lemus on 06-07-2022 Platelets (Bld) [#/Vol] 188 10*3/uL 150-450 [facility] Serum or plasma albumin jose martin urement (mass/volume)Ordered By: Roxanna Lemus on 06-07-2022 Albumin [Mass/Vol] 3.8 g/dL 3.2-5.0 [facility] Serum or plasma albumin/glob ulin mass ratioOrdered By: Roxanna Lemus on 06-07-2022 Albumin/Globulin [Mass ratio] 1.1 {ratio} 0.9-2.4 [facility] Serum or plasma calcium jose martin urement (mass/volume)Ordered By: Roxanna Lemus on 06-07-2022 Calcium [Mass/Vol] 8.9 mg/dL 8.5-10.1 [facility] Serum or plasma cholesterol in HDL measurement (mass/volume)Ordered By: Roxanna Lemus on 06-07-2022 Cholesterol in HDL [Mass/Vol] 66 mg/dL >40 [facility] Comment on above: The drugs N-Acetylcy steine and Metamizole may falsely depress this assay. Reference Range HDL <40 mg/dL Low HDL Cholesterol HDL >or= 60 mg/dL High HDL Cholesterol Serum or plasma cholesterol in VLDL measurement (mass/volume)Ordered By: Roxanna Lemus on 06-07-2022 Cholesterol in VLDL [Mass/Vol] 19 mg/dL 5-40 [facility] Serum or plasma creatinine m easurement (mass/volume)Ordered By: Roxanna Lemus on 06-07-2022 Creatinine [Mass/Vol] 0.88 mg/dL 0.55-1.02 [facility] Comment on above: The validity of the calculated GFR & GFRAA in patients over 70 years has not been determined. Clinical correlation is essential. Serum or plasma low density lipoprotein (LDL) cholesterol measurement (mass/volume)Ordered By: Roxanna Lemus on 06-07-2022 Cholesterol in LDL [Mass/Vol] 167 mg/dL 0-130 [facility] Serum or plasma urea nitroge n measurement (mass/volume)Ordered By: Roxanna Lemus on 06-07-2022 Urea nitrogen [Mass/Vol] 17 mg/dL 7-18 [facility] Thin prep Papanicolaou smear with manual screeningOrdered By: Roxanna Lemus on 06-07-2022 Thin prep Papanicolaou smear with manual screening 19 U/L 15-37 [facility] Thin prep Papanicolaou smear with manual screening 5 5-15 [facility] Thin prep Papanicolaou smear with manual screening 21.3 mg/L NO RANGE EST. [facility] Vital Signs Date Time Vital Sign Value Performing Clinician Facility 10-05-2024 14:26-0400 Body temperature 99.39 [degF] David Rocha MD Work Phone: [facility] 10-05-2024 14:26-0400 Body weight 72.2 kg David Rocha MD Work Phone: [facility] 10-05-2024 14:26-0400 Diastolic blood pressure 78 mm[Hg] David Rocha MD Work Phone: [facility] 10-05-2024 14:26-0400 Heart rate 85 /min David Rocha MD Work Phone: [facility] 10-05-2024 14:26-0400 Respiratory rate 18 /min David Rocha MD Work Phone: [facility] 10-05-2024 14:26-0400 SaO2% (BldA) [Mass fraction] 98 % David Rocha MD Work Phone: [facility] 10-05-2024 14:26-0400 Systolic blood pressure 122 mm[Hg] David Rocha MD Work Phone: [facility] 07-25-2022 13:15-0400 Body height 165.1 cm DO Roxanna Allan Work Phone: [facility] 07-25-2022 13:14-0400 Body mass index (BMI) [Ratio] 26.8 kg/m2 DO Roxanna Allan Work Phone: [facility] 07-25-2022 13:14-0400 Body temperature 97.9 [degF] DO Roxanna Allan Work Phone: [facility] 07-25-2022 13:14-0400 Body weight 73.17 kg DO Roxanna Allan Work Phone: [facility] 07-25-2022 13:14-0400 Diastolic blood pressure 68 mm[Hg] DO Roxanna Allan Work Phone: [facility] 07-25-2022 13:14-0400 Heart rate 96 /min DO Roxanna Allan Work Phone: [facility] 07-25-2022 13:14-0400 Respiratory rate 16 /min DO Roxanna Allan Work Phone: [facility] 07-25-2022 13:14-0400 SaO2% (BldA) [Mass fraction] 96 % DO Roxanna Allan Work Phone: [facility] 07-25-2022 13:14-0400 Systolic blood pressure 112 mm[Hg] DO Roxanna Allan Work Phone: [facility] 07-19-2022 14:30-0400 Body mass index (BMI) [Ratio] 26.6 kg/m2 DO Roxanna Allan Work Phone: [facility] 07-19-2022 14:30-0400 Body temperature 97.1 [degF] DO Roxanna Allan Work Phone: [facility] 07-19-2022 14:30-0400 Body weight 72.77 kg DO Roxanna Grosser Work Phone: [facility] 07-19-2022 14:30-0400 Diastolic blood pressure 73 mm[Hg] DO Roxanna Grosser Work Phone: [facility] 07-19-2022 14:30-0400 Heart rate 96 /min DO Roxanna Grosser Work Phone: [facility] 07-19-2022 14:30-0400 Respiratory rate 16 /min DO Roxanna Grosser Work Phone: [facility] 07-19-2022 14:30-0400 SaO2% (BldA) [Mass fraction] 97 % DO Roxanna Lemus Work Phone: [facility] 07-19-2022 14:30-0400 Systolic blood pressure 118 mm[Hg] DO Roxanna Lemus Work Phone: [facility] Encounters Encounter Date Encounter Type Care Provider Facility Start: 10-05-2024 End: 10-05-2024 Patient encounter procedure David oRcha MD Work Phone: [facility] Comment on above: Influenza-like illne ss (Primary Dx); Nausea Start: 10-04-2024 ambulatory Chalon Rosaline Facility:[facility] Start: 07-30-2024 End: 07-30-2024 ambulatory Chalon Rosaline Facility:[facility] Start: 06-20-2024 End: 06-20-2024 ambulatory Chalon Rosaline Facility:[facility] Start: 05-31-2024 End: 05-31-2024 ambulatory Chalon Rosaline Facility:[facility] Start: 05-31-2024 End: 05-31-2024 ambulatory Chalon Rosaline Facility:[facility] Start: 05-30-2024 End: 05-30-2024 ambulatory Chalon Rosaline Facility:[facility] Start: 05-17-2024 ambulatory Chalon Rosaline Facility:[facility] Start: 04-22-2024 End: 04-22-2024 ambulatory Chalon Rosaline Facility:[facility] Start: 04-16-2024 ambulatory Chalon Rosaline Facility:[facility] Start: 04-16-2024 End: 04-16-2024 ambulatory Chalon Rosaline Facility:[facility] Start: 02-16-2024 End: 02-16-2024 ambulatory Chalon Rosaline Facility:[facility] Start: 02-16-2024 End: 02-16-2024 ambulatory Chalon Rosaline Facility:[facility] Start: 12-19-2023 ambulatory Chalon Rosaline Facility:[facility] Start: 12-19-2023 End: 12-19-2023 ambulatory Chalon Rosaline Facility:[facility] Start: 11-27-2023 End: 11-27-2023 ambulatory Chalon Rosaline Facility:[facility] Start: 10-27-2023 End: 10-27-2023 ambulatory Chalon Rosaline Facility:[facility] Start: 10-26-2023 End: 10-26-2023 ambulatory Chalon Rosaline Facility:[facility] Start: 01-17-2023 End: 01-17-2023 ambulatory [facility] Work Phone: Start: 01-17-2023 End: 01-17-2023 Patient encounter procedure [facility] Work Phone: Start: 09-15-2022 End: 09-15-2022 ambulatory DO Roxanna Lemus Work Phone: [facility] Work Phone: Start: 09-15-2022 End: 09-15-2022 Patient encounter procedure DO Roxanna Lemus Work Phone: [facility] Work Phone: Start: 07-25-2022 End: 07-25-2022 Patient encounter procedure DO Roxanna Lemus Work Phone: [facility] Work Phone: Start: 07-19-2022 Registered Recurring DO Mavis Lemus Work Phone: [facility] Start: 07-19-2022 End: 07-19-2022 Patient encounter procedure DO Roxanna Lemus Work Phone: [facility] Work Phone: Start: 07-14-2022 Non-patient / Non-visit DO Abhijit Lemus Work Phone: [facility] Start: 07-05-2022 End: 07-05-2022 ambulatory [facility] Work Phone: Start: 07-05-2022 End: 07-05-2022 Patient encounter procedure [facility] Start: 06-21-2022 End: 06-21-2022 ambulatory [facility] Work Phone: Start: 06-21-2022 End: 06-21-2022 Patient encounter procedure [facility] Start: 06-07-2022 End: 06-07-2022 [facility] Start: 06-29-2021 End: 06-29-2021 [facility] Procedures Date Procedure Procedure Detail Performing Clinician Start: 01-17-2023 Computed tomography of abdomen and pelvis with contrast Start: 06-21-2022 Dual energy X-ray absorptiometry Start: 06-29-2021 Radiography of ankle Plan of Treatment Date Care Activity Detail Author Start: 11-27-2024 Urine microalbumin profile DTaP,Tdap,Td Vaccine (2 - Td or Tdap) [facility] Start: 11-04-2024 Influenza vaccination Influenza Vacc ine (#1) [facility] Start: 03-06-2024 Advance Directive Discussion Advance Directive Discussion [facility] Start: 02-09-2022 Shingrix Vaccine (2 of 2) Salguero grix Vaccine (2 of 2) [facility] Start: 07-28-2003 Screening for osteoporosis Bone Density Screening [facility] Start: 07-28-1983 Diabetes Screening Diabetes Screenin g [facility] Start: 1956 Anxiety Screening Anxiety Screening [facility] Start: 1956 Depression Screening Depression Scre ening [facility] CBC W Auto Different ial panel - Blood [facility] Ferritin [Mass/volum e] in Serum or Plasma [facility] Folate [Mass/volume] in Serum or Plasma [facility] Iron and Iron bindin g capacity panel - Serum or Plasma [facility] Lactate dehydrogenas e measurement [facility] Vitamin B12 measurement [facility] Immunizations Immunization Date Immunization Notes Care Provider Marilia zavalarobin 11-28-2023 influenza virus vaccine, unspecified formulation David Rocha MD Work Phone: [facility] 05-08-2020 Covid (Moderna) [facility] 04-10-2020 Covid ([facility] 11-05-2015 Influenza virus vaccine [facility] Payers Date Payer Category Payer Private Health Insurance [facility] [id number] 2023 Self-pay [id number] 2023 Unknown [id number] 2003 Medicare [id number] Unknown [id number] .[id number] Unknown [id number] .462 Unknown [id number] [id number] .462 Unknown [id number] 2.16.840.1.345747.3.579.2 .462 Unknown [id number] 2.16.840.1.894229.3.579.2 .462 Unknown [id number] 2.16.840.1.714375.3.579.2 .462 Unknown [id number] 2.16.840.1.404264.3.579.2 .462 Unknown [id number] 2.16.840.1.481745.3.579.2 .462 Unknown [id number] 2.16.840.1.392441.3.579.2 .462 Unknown [id number] 2.16.840.1.054869.3.579.2 .462 Unknown [id number] 2.16.840.1.070312.3.579.2 .462 Unknown [id number] 2.16.840.1.576323.3.579.2 .462 Unknown [id number] 2.16.840.1.616615.3.579.2 .462 Unknown [id number] 2.16.840.1.893271.3.579.2 .462 Unknown [id number] 2.16.840.1.247468.3.579.2 .462 Unknown [id number] 2.16.840.1.298366.3.579.2 .462 Unknown [id number] 2.16.840.1.319133.3.579.2 .462 Social History Date Type Detail Facility Start: 07-04-2016 End: 07-19-2022 Tobacco smoking status NHIS Unknown if ever smoked [facility] Start: 1940 Sex Assigned At Female [facility] Start: 1940 Sex assigned at Not on file [facility] Gender identity Not on file [facility] History of Present illness Narrative 10-05-2024 David Rocha MD - 10/05/2024 2:47 PM EDT Note Date & Type Note Facility 10-05-2024 History of Presen t illness Narrative [facility] Shonna Santacruz is a 84 year old female. Patient presents with: Flu Like Symptoms: X 3 days-diarrhea, stomach hurts, nausea, hot and feels dizzy Patient started feeling ill 3 days ago. She reports it feels exactly like when she had influenza A 6 months ago. She has headache, hot and chilled feeling, sinus pressure, nasal congestion, dizziness, abdominal discomfort, urinary frequency, nausea, and diarrhea. She was treated through her healthcare system for urinary symptoms last week. Denies fever, vomiting, blood in stool, melena. Home COVID test were negative the last 2 days. Flu Like Symptoms Review of Systems Objective BP 122/78 Pulse 85 Temp 37.4 C (99.4 F) (Tympanic) Resp 18 Wt 72.2 kg (159 lb 2.8 oz) SpO2 98% Physical Exam Constitutional: General: She is not in acute distress. Comments: Accompanied by her . HENT: Right Ear: Tympanic membrane and ear canal normal. Left Ear: Tympanic membrane and ear canal normal. Nose: Congestion present. Right Sinus: No maxillary sinus tenderness or frontal sinus tenderness. Left Sinus: No maxillary sinus tenderness or frontal sinus tenderness. Mouth/Throat: Mouth: Mucous membranes are moist. Pharynx: Posterior oropharyngeal erythema present. No oropharyngeal exudate. Eyes: Extraocular Movements: Extraocular movements intact. Conjunctiva/sclera: Conjunctivae normal. Pupils: Pupils are equal, round, and reactive to light. Cardiovascular: Rate and Rhythm: Normal rate and regular rhythm. Heart sounds: No murmur heard. Pulmonary: Effort: No respiratory distress. Breath sounds: No wheezing, rhonchi or rales. Abdominal: Palpations: There is no mass. Tenderness: There is no abdominal tenderness. There is no right CVA tenderness or left CVA tenderness. Musculoskeletal: Cervical back: Neck supple. Lymphadenopathy: Cervical: No cervical adenopathy. Neurological: Mental Status: She is alert. {ASSESSMENT/PLAN: 1. Influenza-like illness - ICD9: 487.1, ICD10: J11.1 (primary diagnosis) 2. Nausea - ICD9: 787.02, ICD10: R11.0 - suspect viral URI - Supportive care treatment with rest, hydration, and analgesia. - ONDANSETRON 4 MG DISINTEGRATING TABLET Follow up in the ER with signs of dehydration, increasing abdominal pain, high fever, or blood in vomit or stool. David Rocha MD Differential Diagnoses - Viral syndrome is more likely for the following reason(s): suggested by H&P - COVID is less likely for the following reason(s): Negative home COVID tests - Influenza is less likely for the following reason(s): Not currently circulating in the community - Acute abdomen is less likely for the following reason(s): Benign exam Procedures documented in this encounter [facility] Clinical Note 04-16-2024 Note Date & Type Note Facility 04-16-2024 [facility] Medical Records Department [address] [place] [address] History Physical Exam 04/16/24 1511 MR#: [id number] Acct: [id number] Name: ALISON SANTACRUZ Rep #: [id number] : 1940 83 From: Willie Shook DO PCP: Dr. Eddie Waggoner MD Status:[facility] Location: [place] [address] HPI - General General Date of Admission: 04/16/24 Date of Service: 04/16/24 Chief Complaint: abdominal pain HPI Narrative ALISON SANTACRUZ, is a 83 F who presents for endoscopic evaluation of abdominal pain and black stools Chief Complaint: black tarry stools [facility] established 11.27.23 w/ constipation and complaints of hemorrhoids. Takes miralax and dulcolax as needed. Some nausea in the mornings she feels is related to anxiety. Colonoscopy 12.19.23; Hemorrhoids found on perianal exam. - A single non-bleeding colonic angiodysplastic lesion. - External and internal hemorrhoids. Banded. - No specimens collected OV 02.16.24 Pt had colonoscopy with banding in December and feels this went well. SHe was having some constipation after the procedure but this has since resolved. Pt reports new symptoms of diffuse epigastric pain starting one week ago associated with intense nausea. This is new to her and she has never had this before. She also notes her stools are black and tarry. They are mostly loose but sometimes solid. SHe has no hx of heartburn. She was taking NSAIDs for knee pain daily for many months but did recently stop this. She feels weak and fatigued. [facility] Medical History Arthritis Gastric reflux Wears hearing aid Loss of hearing Wears glasses Depression Alcohol use Thyroid disease High cholesterol Easy bruising History of IBS Bleeding hemorrhoids Heartburn Non-smoker History of stress test History of echocardiogram Cardiology follow-up encounter Abnormal EKG Varicose veins of both lower extremities Thrombocytopenia Polyp of colon Hyperlipidemia Adjustment disorder Insomnia IBS (irritable bowel syndrome) Panic disorder Generalized anxiety disorder Major depressive disorder, recurrent severe without psychotic features Hypothyroid Hypertension Leukopenia Home Medications ???Medication ???Instructions ???Recorded ???Last Taken ???Type amlodipine 5 mg tablet 5 mg PO DAILY 07/14/22 04/16/24 Hi story folic acid 1 mg tablet 1 mg PO DAILY 07/14/22 12/15/23 Hi story glucosamine 750 [id number] 1 tab PO DAILY 07/14/22 04/15/24 History no1 644 mg-C 30 mg-liset 1 mg tablet (Osteo Bi-Flex Triple Strength) levothyroxine 137 mcg tablet 137 mcg PO DAILY 07/14/22 04/16/24 History multivitamin 1 tab PO DAILY 07/14/22 12/15/23 H istory citalopram 40 mg tablet (Celexa) 40 mg PO DAILY 30 days #30 tabs 04/16/24 Rx trazodone 100 mg tablet 100 mg PO QHS 08/09/23 04/15/24 Hi story pantoprazole 40 mg tablet,delayed 40 mg PO BID #90 tabs 02/16/24 Rx release dicyclomine 10 mg capsule 10 mg PO BID #30 caps 02/22/24 Unk nown Rx Allergy/AdvReac Type Severity Reaction Status Date / Time Iodinated Contrast Media Allergy Rash Verified 04/16/24 13:29 atorvastatin (From Lipitor) AdvReac Upset Verified 04/16/24 13:29 Stomach bupropion (From Wellbutrin) AdvReac Other Verified 04/16/24 13:29 paroxetine (From Paxil) AdvReac Alicia poorly Verified 04/16/24 13:29 rosuvastatin (From Crestor) AdvReac Upset Verified 04/16/24 13:29 Stomach sertraline (From Zoloft) AdvReac Other Verified 04/16/24 13:29 simvastatin (From Zocor) AdvReac Upset Verified 04/16/24 13:29 Stomach Family History Mother Hypertension Father Hypertension Depression CVA (cerebral vascular accident) Bladder cancer Brother Cancer Surgical History Hx of colonoscopy Trigger finger of left thumb History of reverse total replacement of left shoulder joint H/O varicose vein ligation History of tonsillectomy and adenoidectomy History of hysterectomy Social History Smoking Status: Never smoker alcohol intake: current alcohol intake frequency: holidays/special occasions only substance use type: does not use ROS Constitutional Constitutional: Denies fatigue, fever(s), poor appetite, weight gain or weight loss Gastrointestinal Gastrointestinal: Denies belching, bloating, change in bowel habits, change in stool character, chewing difficulty, coffee ground emesis, constipation, cramping, diarrhea, dyspepsia, dysphagia, early satiety, excessive flatus, fecal incontinence, heartburn, hematemesis, hematochezia, hemorrhoids, loose stools, melena, nausea, odynophagia, rectal bleeding, tenes (more content not included)... [facility] Clinical Note 12-19-2023 Note Date & Type Note Facility 12-19-2023 Note [facility] Medical Records Department [address] [place] [address] History Physical Exam 12/19/23 1425 MR#: [id number] Acct: [id number] Name: ALISON SANTACRUZ Rep #: [id number] : 1940 83 From: Willie Shook DO PCP: Dr. Eddie Waggoner MD Status:[facility] Location: [place] [id number] History and Physical Date of Admission: 12/19/23 OV 9.23.24 Pt reports that she is here to discuss possible hemorrhoid banding. Pt states that she has a terrible time going to the bathroom and does not want to continues having to take as many laxatives and stool softeners as she is. States that her last colonoscopy was 7-8 years ago. [facility] Medical History Abnormal EKG Varicose veins of both lower extremities Thrombocytopenia Polyp of colon Hyperlipidemia Adjustment disorder Insomnia IBS (irritable bowel syndrome) Bereavement Panic disorder Generalized anxiety disorder Major depressive disorder, recurrent severe without psychotic features Hypothyroid Hypertension Leukopenia Surgical History Trigger finger of left thumb History of reverse total replacement of left shoulder joint H/O varicose vein ligation History of tonsillectomy and adenoidectomy History of hysterectomy Family History Mother HypertensionFather Hypertension Depression CVA (cerebral vascular accident) Bladder cancerBrother Cancer Social History Smoking Status: Never smoker alcohol intake: current alcohol intake frequency: holidays/special occasions only substance use type: does not use HPI HPI Chief Complaint: hemrrhoids, nausea Details: ALISON SANTACRUZ, is a 83 F who presents to the office today for establishment with [facility]. Pt has a PMHx of valvular heart disease, thrombocytopenia, HLD, HTN, hypothyroid, IBS and anxiety. SHe is here today for her constipation which she feels is causing her constipation. She had a colonoscopy about [address] Mendenhall with hemorrhoids and a few polyps. She feels her stool is too small and has a hard time passing around the hemorrhoids. She does not feel any external hemorrhoids. She will take Dulcolax and miralax on occasion to relieve her constipation but does not want to take this forever. She has complaints of a nervous stomach and nausea in the morning. She feels this is related to her anxiety and she takes citalopram and BuSpar. She has a family hx of colon cancer and pancreatic cancer. ROS Const Constitutional: Positive for headache(s); No fatigue, fever(s) or weight change ENT ENT: Positive for headache(s); No difficulty swallowing Gastro GI: Positive for abdominal pain, bloating, change in bowel habits, constipation, heartburn, excessive flatus and nausea/dyspepsia; No belching, change in stool character, coffee ground emesis, cramping, diarrhea, difficulty swallowing, feeling full early, incontinent of stools, Vomiting blood/hematemesis, Blood in stool, loose stools, Black,tarry stools, pain with swallowing, vomiting or other Musc Musculoskeletal: Positive for back pain and Arthritis; No joint pain Skin Skin: Positive for itchy eyes; No yellowing of the eye Neuro Neurology: Positive for headache(s) Psych Psychiatric: Positive for anxiety and Positive for depression Endo Endocrine: No fatigue or weight change Aller/Imm Allergy/Immunologic: Positive for itchy eyes Sd/Lymp Hematologic/Lymphatic: Positive for easy bruising; No easy bleeding Exam Const General: cooperative and comfortable Nutritional Appearance: average body habitus and well nourished HENNM Head: normal to inspection Ears: hearing grossly normal bilaterally Nose: external nose normal Face and sinus: normal facial exam Eyes General: appearance normal, both eyes and all related structures Neck Neck: normal visual inspection Chest Chest palpation inspection: normal inspection of the chest Resp Effort Inspection: normal respiratory effort and able to speak in complete sentences GI Inspection: normal to inspection Skin General: no rashes or lesions noted Neuro General: patient alert Extrem General: normal to inspection Psych Affect: normal affect Assessment and Plan Assessment and Plan (1) Hemorrhoids: (2) Constipation: Status: Acute Plan: Pt is an 83 yo female here today for a establishment with [facility]. She has been having constipation for a long time with small hard stools. She feels that it may be related to internal hemorrhoids. She had a colonoscopy 10+ years ago and was told she had some pretty severe hemorrhoids but had no tx of these. We will get a colonoscopy with possible banding if indicated. I recommended she sta (more content not included)... [facility] Evaluation note Note Date & Type Note Facility Evaluation note No assessment information availa ble [facility] Work Phone: Evaluation note Note Date & Type Note Facility Evaluation note Diagnosis Onset Date Leukopenia resolved Leukopenia resolved [facility] Work Phone: Evaluation note Note Date & Type Note Facility Evaluation note Diagnosis Influenza-like illness- Primary Influenza with other respiratory manifestations Nausea Nausea alone documented in this encounter [facility] Chief Complaint and Reason for Visit Chief Complaint RIGHT ANKLE Chief Complaint OSTEO Chief Complaint OSTEO Amb Documentation NEW PT - LEUKOPENIA lab 1WK REVIEW LABS E ORDER Reason for Visit Leukopenia Leukopenia Chief Complaint RLQ ABD PAIN/ ADD LA BWORK FOR @[facility] Advance Directives Advance Directive Response Recorded Date/ Time Living Will Yes July 20, 2016 1 0:50am Power of Lanolin Plant Operator Yes July 20, 2016 10:50am Advance Directive Response Recorded Date/ Time Living Will Yes July 20, 2016 9 :50am Power of Lanolin Plant Operator Yes July 20, 2016 9:50am Family History Relationship Condition Age at Onset Recorded Date/T mirta mother Hypertension Unknown father Hypertension Unknown Depression Unknown Cerebrovascular accident (CVA) Unknown Malignant neoplasm of urinary bladder Unk nown Summary Purpose Additional Source Comments Goals (unrecognized section and content) Goals may be documented in a n alternate sectionGoals may be documented in an alternate sectionGoals may be documented in an alternate sectionGoals may be documented in an alternate sectionGoals may be documented in an alternate section Care Teams (unrecognized sec tion and content) Team Status: Active Member Role Status Dates Dr. Alf Joseph MD Family Provider Active Roxanna Lemus DO Primary Care Provider Active Team Status: Inactive Member Role Status Dates Roxanna Lemus DO Primary Care Provi oscar, Attending Provider, Referring Provider Active Team Status: Inactive Member Role Status Dates Roxanna Lemus DO Primary Care Provider, Attending Provider Active Team Status: Inactive Member Role Status Dates Roxanna Lemus DO Primary Care Provider, Referring Provider Active Dr. Vernon Garrett MD Attending Provider Active Team Status: Active Member Role Status Dates Roxanna Lemus DO Primary Care Provider Active Radha Ascencio Attending Provider Active Team Status: Active Member Role Status Dates Roxanna Lemus DO Primary Care Provider Active Dr. Vernon Garrett MD Attending Provider, Referring Pro vider Active Team Status: Inactive Member Role Status Dates Roxanna Lemus DO Primary Care Provider Active Dr. Tila Bailey MD Attending Provider, Referring P aditya Active Eddie Waggoner MD Other Provider Active INFORMATION SOURCE (unrecogn ized section and content) DATE CREATED AUTHOR 10/03/2024 [facility] Source Comments (unrecognize d section and content) In the event this informatio n is protected by the Federal Confidentiality of Alcohol and Drug Abuse Patient Records regulations: The Federal rules restrict any use of the information to criminally investigate or prosecute any alcohol or drug abuse patient.[facility] Reason for Visit (unrecogniz ed section and content) Reason Comments Flu Like Symptoms X 3 days-diarrhea, s tomach hurts, nausea, hot and feels dizzy FOR RECORDS PERTAINING TO PATIENTS WHO ARE OR HAVE BEEN ENROLLED IN A CHEMICAL DEPENDENCY/SUBSTANCEABUSE PROGRAM, SOME INFORMATION MAY BE OMITTED. This clinical summary was aggregated from multiple sources. Caution should be exercised in using it in the provision of clinical care. This summary normalizes information from multiple sources, and as a consequence, information in this document may materially change the coding, format and clinical context of patient data. In addition, data may be omitted in some cases. CLINICAL DECISIONS SHOULD BE BASED ON THE PRIMARY CLINICAL RECORDS. [facility]. provides no warranty or guarantee of the accuracy or completeness of information in this document.
--- NOTE | 2024-10-06 14:08 | EX.ED.DYSGE1 ---
HPI History of Present Illness Chief Complaint: Abd Pain Narrative Narrative: Chief complaint and HPI: Abdominal pain. 84-year-old female with past medical history of IBS with chronic constipation, hypothyroidism, HTN presents for evaluation of abdominal pain. Patient states for several days she has had diffuse abdominal pain. States she was seen in urgent care on who recommended her to go to the emergency department for imaging. She states she was hoping the symptoms would improve at home however they have not which is why she presents today. She states at baseline she has black/dark stools. She denies any bright red blood per rectum. She denies any fever, chills, shortness of breath, chest pain, emesis, dysuria. Does endorse bloating and diarrhea. Review of systems: See HPI Medications: As listed on the chart Allergies: As listed on the chart PFSH: Per chart Vital signs: As listed on the chart. Reviewed. Physical exam: Gen: A&O x3, NAD Head: Normocephalic, atraumatic Eyes: No sclera icterus, conjunctiva clear ENT: Moist mucous membranes Neck: Trachea midline, No JVD CV: RRR, no murmurs, no peripheral edema Resp: Lungs CTA BL, no w/r/c GI: Abd soft, mildly distended, mild tenderness to palpation diffusely, no r/r/g Rectal: Normal external examination. Non-thrombosed external hemorrhoids. Normal tone and sensation. No masses, fluctuance, or tenderness. No pain out of proportion. Stool dark on gloved finger : No CVA tenderness Musc: Full ROM, no deformity Skin: Warm, dry Neuro: Alert, oriented, grossly intact, sensation intact Psych: Cooperative, appropriate mood and affect [facility] Medical History Arthritis Gastric reflux Wears hearing aid Loss of hearing Wears glasses Depression Alcohol use Thyroid disease High cholesterol Easy bruising History of IBS Bleeding hemorrhoids Heartburn Non-smoker History of stress test History of echocardiogram Cardiology follow-up encounter Abnormal EKG Varicose veins of both lower extremities Thrombocytopenia Polyp of colon Hyperlipidemia Adjustment disorder Insomnia IBS (irritable bowel syndrome) Panic disorder Generalized anxiety disorder Major depressive disorder, recurrent severe without psychotic features Hypothyroid Hypertension Leukopenia Home Medications ?Medication ?Instructions ?Recorded ?Last Taken ?Type amlodipine 5 mg tablet 5 mg PO DAILY 07/14/22 04/16/24 History folic acid 1 mg tablet 1 mg PO DAILY 07/14/22 12/15/23 History glucosamine 750 hr-rpvzxkportd-bye 1 tab PO DAILY 07/14/22 04/15/24 History no1 644 mg-C 30 mg-liset 1 mg tablet (Osteo Bi-Flex Triple Strength) levothyroxine 137 mcg tablet 137 mcg PO DAILY 07/14/22 04/16/24 History multivitamin 1 tab PO DAILY 07/14/22 12/15/23 History citalopram 40 mg tablet (Celexa) 40 mg PO DAILY 30 days #30 tabs 03/08/23 04/16/24 Rx trazodone 100 mg tablet 100 mg PO QHS 08/09/23 04/15/24 History pantoprazole 40 mg tablet,delayed 40 mg PO BID #90 tabs 02/16/24 04/16/24 Rx release dicyclomine 10 mg capsule 10 mg PO BID #30 caps 02/22/24 Unknown Rx linaclotide 72 mcg capsule 72 mcg PO QAM #60 caps 05/31/24 Unknown Rx (Linzess) diphenhydramine HCl 25 mg capsule 50 mg (2 x 25 mg) PO ONCE #2 caps 06/19/24 Unknown Rx (Benadryl) prednisone 50 mg tablet 50 mg PO QDAY #3 tabs 06/19/24 Unknown Rx Allergy/AdvReac Type Severity Reaction Status Date / Time Iodinated Contrast Media Allergy Rash Verified 10/06/24 13:15 atorvastatin (From Lipitor) AdvReac Upset Verified 10/06/24 13:15 Stomach bupropion (From Wellbutrin) AdvReac Other Verified 10/06/24 13:15 paroxetine (From Paxil) AdvReac Dell poorly Verified 10/06/24 13:15 rosuvastatin (From Crestor) AdvReac Upset Verified 10/06/24 13:15 Stomach sertraline (From Zoloft) AdvReac Other Verified 10/06/24 13:15 simvastatin (From Zocor) AdvReac Upset Verified 10/06/24 13:15 Stomach Family History Mother Hypertension Father Hypertension Depression CVA (cerebral vascular accident) Bladder cancer Brother Cancer Surgical History Hx of colonoscopy Trigger finger of left thumb History of reverse total replacement of left shoulder joint H/O varicose vein ligation History of tonsillectomy and adenoidectomy History of hysterectomy Social History Smoking Status: Never smoker alcohol intake: current alcohol intake frequency: holidays/special occasions only substance use type: does not use EXAM Physical Exam Const Vital Signs: 10/06/24 13:13 10/06/24 14:23 10/06/24 15:00 Temperature 98.4 F 97.9 F 98.5 F Temperature Source Oral Oral Oral Pulse Rate 83 72 65 Respiratory Rate 16 16 19 H Blood Pressure 137/77 H 130/76 H 134/68 H Blood Pressure Mean 97 94 90 Pulse Ox 98 100 100 Oxygen Delivery Method Room Air Room Air Room Air MDM MDM MDM Narrative Medical decision making narrative: 84-year-old female with past medical history of IBS with chronic constipation, hypothyroidism, HTN presents for evaluation of abdominal pain. Associated is black/dark stool which she states is chronic. CBC with baseline leukopenia of 4.3. No anemia. Platelet count unremarkable. CMP unremarkable. Lipase unremarkable. UA negative for UTI. Stool occult positive. CT abdomen pelvis pending at this time. Patient signed out to oncoming physician, Dr. Alexis. Final disposition pending results. History & Record Review Discussion w/independent historian: Significant other Lab Data Labs: Laboratory Results - last 24 hr 10/06/24 10/06/24 13:48 14:26 WBC 4.3 L RBC 3.88 L Hgb 12.0 Hct 34.6 L MCV 89.2 MCH 30.9 MCHC 34.7 RDW Std Deviation 38.3 RDW Coeff of Gema 11.9 Plt Count 170 MPV 8.3 Immature Gran % (Auto) 0.500 Neut % (Auto) 62.7 Lymph % (Auto) 26.3 [place] % (Auto) 6.3 Eos % (Auto) 3.5 Baso % (Auto) 0.7 Absolute Neuts (auto) 2.7 Absolute Lymphs (auto) 1.12 Nucleated RBC % 0 Sodium 137 Potassium 4.0 Chloride 100 Carbon Dioxide 25.6 Anion Gap 11 BUN 13 Creatinine 0.83 Estim Creat Clear Calc 49.58 L Est GFR (MDRD) Non-Af 69 BUN/Creatinine Ratio 15.2 Glucose 121 H Calcium 9.1 Total Bilirubin 0.77 AST 18 ALT 16 Alkaline Phosphatase 73 Total Protein 6.8 Albumin 4.4 Globulin 2.4 Albumin/Globulin Ratio 1.9 Lipase 23 Urine Color Yellow Urine Clarity Clear Urine pH 6.0 Ur Specific [place] 1.010 Urine Protein Negative Urine Glucose (UA) Normal Urine Ketones Negative Urine Occult Blood 10 H Urine Nitrite Negative Urine Bilirubin Negative Urine Urobilinogen Normal Ur Leukocyte Esterase Negative Urine RBC 0 SEEN Urine WBC 0 SEEN Ur Squamous Epith Cells 0 SEEN Urine Bacteria 0 SEEN Urine Mucus 0 SEEN Discharge Plan Triage Chief Complaint: Abd Pain ED Provider: Chris Phillips Dx/Rx/DC Orders Prescriptions: No Action levothyroxine 137 mcg tablet 137 mcg PO DAILY Patient Comments: Take 1 tablet by mouthtdailyo amlodipine 5 mg tablet 5 mg PO DAILY Patient Comments: TAKE 1 TABLET BY MOUTHHONCE DAILY multivitamin Tablet 1 tab PO DAILY folic acid 1 mg tablet 1 mg PO DAILY trazodone 100 mg tablet 100 mg PO QHS pantoprazole 40 mg tablet,delayed release (DR/EC) 40 mg PO BID Qty: 90 3RF Linzess 72 mcg capsule 72 mcg PO QAM Qty: 60 2RF Osteo Bi-Flex Triple Strength 750 mg-644 mg- 30 mg-1 mg tablet 1 tab PO DAILY Patient Comments: supplement citalopram [Celexa] 40 mg tablet 40 mg PO DAILY 30 Days Qty: 30 1RF dicyclomine 10 mg capsule 10 mg PO BID Qty: 30 2RF diphenhydramine HCl [Benadryl] 25 mg capsule 50 mg PO ONCE Qty: 2 0RF Rx Instructions: Take one hour before CT prednisone 50 mg tablet 50 mg PO QDAY Qty: 3 0RF Rx Instructions: Take 1 tab every 6 hours. 13 hours before, 7 hours before and 1 hour before Primary Care Provider: Eddie Waggoner Referrals: Eddie Waggoner MD [Primary Care Provider] - Print Language: Mauritanian
[2024-10-06 14:11] LABS: AST(SGOT) 18 U/L (<=31); Alanine Aminotransfer ALT/SGPT 16 U/L (<=34); Albumin, Serum 4.4 g/dL (3.4-4.8); Alkaline Phosphatase 73 U/L (35-104); Anion Gap 11 (5-15); BUN 13 mg/dL (4-19); BUN/Creat Ratio 15.2 RATIO (10-20); Calcium,Total 9.1 mg/dL (7.6-11.0); Carbon Dioxide 25.6 mmol/L (21.0-32.0); Chloride 100 mmol/L (98-108); Estimated Creatinine Clearance 49.58 ml/min (50-250); Globulin 2.4 g/dL (2.2-4.2); Glucose 121 mg/dL (70-99); Lipase 23 U/L (13-75); Potassium 4.0 mmol/L (3.3-5.1)
[2024-10-06] MEDS: 0.9% Normal Saline (1000mL) 1,000 ML 999 ML IV (14:12)
[2024-10-06] MEDS: DiphenhydrAMINE 50 MG/ML Syringe 25 MG IV (14:13)
[2024-10-06 14:23] VITALS: BP 130/76; PULSE 72; RESP 16; TEMP 36.6; O2SAT 100
[2024-10-06 14:33] LABS: Color, Urine Yellow (Yellow); Glucose, Dipstick Normal (Normal); Ketone-Dipstick Negative (Negative); Leukocyte Esterase-Dipstick Negative /ul (Negative); Mucous, Urine 0 SEEN /hpf (<or=2+); Nitrite-Dipstick Negative (Negative); Occult Blood-Urine 10 /ul (Negative); Protein-Dipstick Negative (Negative); Red Blood Cells-Urine 0 SEEN /hpf (0-5); Specific Gravity, Urine 1.010 (1.002-1.030); Squamous Epithelial Cells - UA 0 SEEN /hpf (5-10); Urine Bilirubin Dipstick Negative (Negative)
[2024-10-06 15:00] VITALS: BP 134/68; PULSE 65; RESP 19; TEMP 36.9; O2SAT 100
[2024-10-06 17:00] VITALS: BP 139/84; PULSE 76
[2024-10-06 17:36] VITALS: BP 134/64; PULSE 84; RESP 16; TEMP 36.4; O2SAT 100
== END 2024-10-06 17:36 | disposition home or self-care (01) ==
PROVIDERS: Emergency Provider Surgery; PCP Family Medicine; Visit Provider Surgery
DX: R10.9 Unspecified abdominal pain (principal); I10 Essential (primary) hypertension; Z90.710 Acquired absence of both cervix and uterus; E78.00 Pure hypercholesterolemia, unspecified; Z79.899 Other long term (current) drug therapy; E03.9 Hypothyroidism, unspecified; Z79.890 Hormone replacement therapy; F41.1 Generalized anxiety disorder; K21.9 Gastro-esophageal reflux disease without esophagitis; Z96.612 Presence of left artificial shoulder joint
CPT/HCPCS: 74177; 80053; 81001; 82274; 83690; 85025; 96361; 96374; 96375; 99283; Q9967; A4216; J2405

== ENCOUNTER → 2024-10-11 | Outpatient (CLI) | payer MEDICARE, OTHER, SELFPAY ==
[2024-10-11 11:43] LABS: Hematocrit 35.2 % (37-47); Hemoglobin 11.9 g/dL (12.0-15.0); Immature Granulocytes Count 0.020 X10^3/uL (0.0-0.0); Mean Corp Hgb Conc 33.8 g/dL (32-36); Mean Corpuscular Volume 90.3 fL (81-99); Mean Platelet Vol. 8.2 fl (6.2-12.0); NRBC Flagged by Analyzer 0 % (0-5); Platelet Count 163 K/mm3 (150-450); RBC Distribution Width CV 11.8 % (11.6-14.6); RBC Distribution Width SD 38.6 fl (35.1-43.9); Red Blood Count 3.90 M/mm3 (4.2-5.4); White Blood Count 3.5 K/mm3 (4.4-11.0)
[2024-10-11 12:16] LABS: AST(SGOT) 22 U/L (<=31); Alanine Aminotransfer ALT/SGPT 16 U/L (<=34); Albumin, Serum 4.5 g/dL (3.4-4.8); Alkaline Phosphatase 66 U/L (35-104); Anion Gap 13 (5-15); BUN 12 mg/dL (4-19); BUN/Creat Ratio 14.3 RATIO (10-20); Calcium,Total 9.3 mg/dL (7.6-11.0); Carbon Dioxide 24.3 mmol/L (21.0-32.0); Chloride 99 mmol/L (98-108); Globulin 2.4 g/dL (2.2-4.2); Glucose 99 mg/dL (70-99); Potassium 4.1 mmol/L (3.3-5.1)
--- OUTSIDE RECORDS SUMMARY | 2024-10-11 12:31 | XMS RPT_ITS | CCD ---
Author Organization [facility] Care Team Providers Care Paper Hanger Name Role Phone DO Roxanna Lemus Primary Care Provider Radha Ascencio Attending Provider UnavailDO Roxanna Holguin Referring Provider [phone] Dr. Vernon Garrett Attending Provider [phone] Unavailable Primary Care Provider UnavailDAVID Griffin Attending Unavailable Rosaline, Chalon Referring Unavailable Rajwinder Luis Attending Unavailable Rosaline, Chalon Primary Care Unavailable Friend, Willie Attending Unavailable Friend, Willie Consulting Unavailable Rosaline, Chalon Primary Care Unavailable Rosaline, Chalon Referring Unavailable Rosaline, Chalon Referring Unavailable Friend, Willie Consulting Unavailable Rosaline, Chalon Primary Care Unavailable Friend, Willie Attending Unavailable Rosaline, Chalon Primary Care Unavailable BladimirnasovRajwinder Attending Unavailable BladimirnasovRajwinder Referring Unavailable Rosaline, Chalon Primary Care Unavailable Rosaline, Chalon Referring Unavailable AtanasRajwinder calderon Attending Unavailable Rosaline, Chalon Primary Care Unavailable Rosaline, Chalon Referring Unavailable AtanasovRajwinder Attending Unavailable Rosaline, Chalon Referring Unavailable Rosaline, Chalon Primary Care Unavailable AtanasovRajwinder Attending Unavailable Rosaline, Chalon Primary Care Unavailable Rosaline, Chalon Referring Unavailable AtanasovRajwinder Attending Unavailable Rosaline, Chalon Referring Unavailable Rosaline, Chalon Primary Care Unavailable Marii Perales NP Attending Unavailable Rosaline, Chalon Primary Care Unavailable BladimirnasovRajwinder Attending Unavailable Rajwinder Luis Referring Unavailable Rosaline, Chalon Referring Unavailable Rosaline, Chalon Attending Unavailable Rosaline, Chalon Primary Care Unavailable Rosaline, Chalon Primary Care Unavailable Chris Phillips Attending UnavailBalaji Fisehr Referring Unavailable Balaji Avitia Attending Unavailable Rosaline, Chalon Primary Care Unavailable Rosaline, Chalon Referring Unavailable Rosaline, Chalon Primary Care Unavailable Friend, Willie Attending Unavailable Rosaline, Chalon Referring Unavailable Rosaline, Chalon Primary Care Unavailable Friend, Willie Attending Unavailable Rosaline, Chalon Attending Unavailable Rosaline, Chalon Primary Care Unavailable Rosaline, Chalon Primary Care Unavailable Atanasov, Rajwinder Referring Unavailable AtanasovEnzoRajwinder Attending Unavailable Rosaline, Chalon Primary Care Unavailable Rosaline, Chalon Referring Unavailable Rosaline, Chalon Attending Unavailable Rosaline, Chalon Primary Care Unavailable Rosaline, Chalon Referring Unavailable Rosaline, Chalon Attending Unavailable Allergies Allergy Classification Reported Allergen(s) Allergy Type Date of Onset Reaction(s) Facility (3 sources) Triiodobenzoic Acids Allergy to substance 06-30-19 Rash [facility] (2 sources) atorvastatin Drug Allergy 07-26-19 Upset Stomach [facility] (2 sources) PARoxetine Drug Allergy 07-26-19 [place] poorly [facility] (2 sources) rosuvastatin Drug Allergy 07-26-19 Upset Stomach [facility] (2 sources) Simvastatin Drug Allergy 07-26-19 Upset Stomach [facility] (2 sources) HMG-CoA reductase inhibitor; Translations: [RINIGLD-DJJ-IQR REDUCTASE INHIBITORS] Drug Intolerance 10-06-19 Intolerance [facility] (1 source) atorvastatin Drug Allergy 10-07-19 [facility] (1 source) buPROPion Drug Allergy 10-07-19 [facility] (1 source) PARoxetine Drug Allergy 10-07-19 [facility] (1 source) rosuvastatin Drug Allergy 10-07-19 [facility] (1 source) Sertraline Drug Allergy 10-07-19 [facility] (1 source) Simvastatin Drug Allergy 10-07-19 [facility] (1 source) Iodinated Contrast Media Drug allergy (disorder) 10-07-19 [facility] Medications Current Medications Medication Drug Class(es) Dates [...] MG PO DAILY July 13, 2022 11:00pm Uiwvfzjc-Rpct-Ejz1-C- Liset-Bosw (Osteo Bi-Flex Triple Strength) 1 EACH tablet (5 sources) Start: 07-04-2016 take 1 tablet by mouth once daily Ezceptis-Erub-Mtl9-C- Liset-Bosw (Osteo Bi-Flex Triple Strength) 1 EACH tablet Active 2 EACH PO DAILY July 04, 2016 10:20am Start: 07-04-2016 End: 07-14-2022 take 1 tablet by mouth once daily Yzhdqfby-Vdls-Htm3-C-Liset-Bosw (Osteo Bi -Flex Triple Strength) 1 EACH tablet Discontinued 2 EACH PO DAILY July 03, 2016 11:00pm July 14, 2022 7:42am Start: 07-04-2016 End: 07-14-2022 take 1 tablet by mouth once daily Nuszwukl-Pjrt-Ame9-C-Liset-Bosw (Osteo Bi -Flex Triple Strength) 1 EACH tablet Discontinued 2 EACH PO DAILY July 04, 2016 12:00am July 14, 2022 8:42am Start: 07-04-2016 take 1 tablet by edna th once daily Yckyrblw-Ahul-Hut5-C-Liset-Bosw (Osteo Bi -Flex Triple Strength) 1 EACH tablet Active 2 EACH PO DAILY July 04, 2016 12:00am Frbfvqwh-Batw-Lfn9-C-Liset-Osmany sw (Osteo Bi-Flex Triple Strength) 750 mg-644 mg- 30 mg-1 mg tablet (2 sources) Start: 07-14-2022 take 1 tablet by mouth once daily Rjstfold-Fsdc-Xue6-C-Liset-Bosw (Osteo Bi-Flex Triple Strength) 750 mg-644 mg- 30 mg-1 mg tablet Active 1 TABLET PO DAILY July 14, 2022 7:40am Start: 07-14-2022 take 1 tablet by edna th once daily Hheohvlz-Mron-Ese7-C-Liset-Bosw (Osteo Bi -Flex Triple Strength) 750 mg-644 [...] 11:00pm Start: 07-14-2022 [facility] Multivitamin Active 1 TABLET PO DAILY July 14, 2022 12:00am [place] 2-Ifk-Cqv-Fish Oil (Fish Oil) 60-90-500 mg capsule (2 sources) Start: 07-14-2022 take 1 capsule by mouth once daily [place] 1-Vat-Nqf-Fish Oil (Fish Oil) 60-90-500 mg capsule Active 1 CAP PO DAILY July 13, 2022 11:00pm Start: 07-14-2022 take 1 capsule by mo [facility] once daily [place] 8-Jiv-Ylc-Fish Oil (Fish Oil) 60-90-500 mg capsule Active [...] 7:42am docusate sodium 50 mg / sennosides, [facility] care 8.6 mg oral tablet (10 sources) Start: [...] 10 MG PO EVERY 4 HOURS NEEDED 45 July 21, 2016 5:41am July 14, 2022 7:42am Problems Active Problems Problem Classification Problem Date Documented Da te Episodic/Chronic Diseases of white blood cells (4 sources) Leukopenia; Translations: [Decreased white blood cell count, unspecified] 07-25-2022 Chronic Essential hypertension (1 source) Essential (primary) hypertension; Translations: [Essential (primary) hypertension] Onset: 11-10-2023 Chronic Influenza (2 sources) Influenza-like illness; Translations: [Influenza due to unidentified influenza virus with other respiratory manifestations] Onset: 10-05-2024 10-05-2024 Episodic Nausea and vomiting (3 sources) Nausea; Translations: [Nausea] Onset: 10-05-2024 10-05-2024 Episodic Other non-traumatic joint disorders (1 [...] Test Name Value Interpretation Reference Range Facility Abdomen/Pelvis W IV Cont ONL Yon 10-06-2024 Abdomen/Pelvis W IV Cont ONLY [facility] Imaging Services [address] [place] [address] [id number] Abdomen/Pelvis W IV Cont ONLY MR#: [id number] Acct: [id number] Name: ALISON SANTACRUZ Rep #: [id number] : 1940 F 84 From: Milo Holloway DO PCP: Dr. Eddie Waggoner MD Status: REG ER Study: Abdomen/Pelvis W IV Cont ONLY Date of Exam: Exam# [id number] Ordering Dr: Chris Phillips DO PROCEDURE: ABDOMEN/PELVIS W IV CONT ONLY 10/06/2024 REASON FOR EXAM: ABDOMINAL PAIN TECHNIQUE: ABDOMEN/PELVIS W IV CONT ONLY Coronal and Sagittal reconstruction series were provided. CONTRAST: Isovue 370 VOLUME: 100 mL One or more dose reduction techniques were used (e.g., Automated exposure control, adjustment of the mA and/or kV according to patient size, use of iterative reconstruction technique. RADIATION DOSE SUMMARY: CTDlvol: 17.19 mGy DLP: 822.41 mGycm COMPARISON: CT 01/17/2023 and 06/20/2024 FINDINGS: Lung bases: Calcified granuloma right lung base. Lungs are otherwise clear. Liver: Unremarkable Gallbladder: Normal Spleen: Calcified granuloma, otherwise normal Pancreas: Possible chronic pancreatitis Adrenals: Normal Kidneys: Normal Bladder: Normal Reproductive Organs: Post hysterectomy Bowel: Normal caliber and appearance Appendix: No appendicitis identified. Lymph nodes: No adenopathy Vasculature: Mild scattered calcific plaque in the aorta Peritoneum / Retroperitoneum: No free fluid, no free air. Bones: Multilevel degenerative disc disease and endplate spondylosis. No aggressive bone process. CT/Abdomen/Pelvis W IV Cont ONLY IMPRESSION: No acute process detected. Other findings as above. Reading [facility] CC: Dr. Chris Phillips DO; Dr. Eddie Waggoner MD Electrotype Caster: Signed Normal [facility] CBC W/Diff, Automatedon Absolute Lymph 1.12 X10 3/uL Normal 0.83-4.51 [facility] Comment on above: Performed By: #### L 100.0100, L501.2450, L500.4050 #### [facility] [address] [place], [address] Absolute Neut 2.7 X10 3/uL Normal 2.0-7.7 [facility] Comment on above: Performed By: #### L 100.0100, L501.2450, L500.4050 #### [facility] [address] [place], [address] Basophils/100 WBC (Bld) 0.7 % Normal 0-1 [facility] Comment on above: Performed By: #### L 100.0100, L501.2450, L500.4050 #### [facility] [address] [place], [address] Eosinophils/100 WBC (Bld) 3.5 % Normal 0-5 [facility] Comment on above: Performed By: #### L 100.0100, L501.2450, L500.4050 #### [facility] [address] [place], [address] Erythrocyte distribution width (RBC) [Ratio] 11.9 % Normal 11.6-14.6 [facility] Comment on above: Performed By: #### L 100.0100, L501.2450, L500.4050 #### [facility] [address] [place], [address] Hematocrit (Bld) [Volume fraction] 34.6 % Low 37-47 [facility] Comment on above: Performed By: #### L 100.0100, L501.2450, L500.4050 #### [facility] [address] [place], [address] Hemoglobin (Bld) [Mass/Vol] 12.0 g/dL Normal 12.0-15.0 [facility] Comment on above: Performed By: #### L 100.0100, L501.2450, L500.4050 #### [facility] [address] [place], [address] IG% 0.500 Normal 0.0-0.9 [facility] Comment on above: Result Comment: IG% - Immature Granulocytes (promyelocytes, myelocytes and metamyelocytes) > 1% indicates that a LEFT SHIFT is Present. Performed By: #### L 100.0100, L501.2450, L500.4050 #### [facility] [address] [place], [address] Lymphocytes/100 WBC (Bld) 26.3 % Normal 19-41 [facility] Comment on above: Performed By: #### L 100.0100, L501.2450, L500.4050 #### [facility] [address] [place], [address] MCH (RBC) [Entitic mass] 30.9 pg Normal 27.0-32.0 [facility] Comment on above: Performed By: #### L 100.0100, L501.2450, L500.4050 #### [facility] [address] [place], [address] MCHC (RBC) [Mass/Vol] 34.7 g/dL Normal 32-36 [facility] Comment on above: Performed By: #### L 100.0100, L501.2450, L500.4050 #### [facility] [address] [place], [address] MCV (RBC) [Entitic vol] 89.2 fL Normal 81-99 [facility] Comment on above: Performed By: #### L 100.0100, L501.2450, L500.4050 #### [facility] [address] [place], [address] Monocytes/100 WBC (Bld) 6.3 % Normal 0-10 [facility] Comment on above: Performed By: #### L 100.0100, L501.2450, L500.4050 #### [facility] [address] [place], [address] Neutrophils/100 WBC (Bld) 62.7 % Normal 47-70 [facility] Comment on above: Performed By: #### L 100.0100, L501.2450, L500.4050 #### [facility] [address] [place], [address] Nucleated RBC (Bld) [#/Vol] 0 10*3/uL Normal 0-5 [facility] Comment on above: Performed By: #### L 100.0100, L501.2450, L500.4050 #### [facility] [address], [address] Platelet mean volume (Bld) [Entitic vol] 8.3 fL Normal 6.2-12.0 [facility] Comment on above: Performed By: #### L 100.0100, L501.2450, L500.4050 #### [facility] [address] [place], [address] Platelets (Bld) [#/Vol] 170 10*3/uL Normal 150-450 [facility] Comment on above: Performed By: #### L 100.0100, L501.2450, L500.4050 #### [facility] [address] [place], [address] RBC (Bld) [#/Vol] 3.88 10*6/uL Low 4.2-5.4 [facility] Comment on above: Performed By: #### L 100.0100, L501.2450, L500.4050 #### [facility] [address] [place], [address] RDW SD 38.3 fl Normal 35.1-43.9 [facility] Comment on above: Performed By: #### L 100.0100, L501.2450, L500.4050 #### [facility] [address] [place], [address] WBC (Bld) [#/Vol] 4.3 10*3/uL Low 4.4-11.0 [facility] Comment on above: Performed By: #### L 100.0100, L501.2450, L500.4050 #### [facility] [address] [place], [address] Comprehensive Metabolic Prof ilon 10-06-2024 Albumin [Mass/Vol] 4.4 g/dL Normal 3.4-4.8 [facility] Comment on above: Performed By: #### L 100.0100, L501.2450, L500.4050 #### [facility] [address] [place], [address] Albumin/Globulin [Mass ratio] 1.9 {ratio} Normal 0.9-2.4 [facility] Comment on above: Performed By: #### L 100.0100, L501.2450, L500.4050 #### [facility] [address] [place], [address] ALK PHOS 73 U/L Normal 35-104 [facility] Comment on above: Performed By: #### L 100.0100, L501.2450, L500.4050 #### [facility] [address] [place], [address] ALT [Catalytic activity/Vol] 16 U/L Normal <=34 [facility] Comment on above: Performed By: #### L 100.0100, L501.2450, L500.4050 #### [facility] [address] [place], [address] AST [Catalytic activity/Vol] 18 U/L Normal <=31 [facility] Comment on above: Performed By: #### L 100.0100, L501.2450, L500.4050 #### [facility] [address] [place], [address] Bilirubin [Mass/Vol] 0.77 mg/dL Normal 0.00-1.30 [facility] Comment on above: Performed By: #### L 100.0100, L501.2450, L500.4050 #### [facility] [address] [place], [address] BUN/CRE 15.2 RATIO Normal 10-20 [facility] Comment on above: Performed By: #### L 100.0100, L501.2450, L500.4050 #### [facility] [address] [place], [address] Calcium [Mass/Vol] 9.1 mg/dL Normal 7.6-11.0 [facility] Comment on above: Performed By: #### L 100.0100, L501.2450, L500.4050 #### [facility] [address] [place], [address] Chloride [Moles/Vol] 100 mmol/L Normal 98-108 [facility] Comment on above: Performed By: #### L 100.0100, L501.2450, L500.4050 #### [facility] [address] [place], [address] CO2 [Moles/Vol] 25.6 mmol/L Normal 21.0-32.0 [facility] Comment on above: Performed By: #### L 100.0100, L501.2450, L500.4050 #### [facility] [address] [place], [address] Creatinine [Mass/Vol] 0.83 mg/dL Normal 0.70-1.20 [facility] Comment on above: Performed By: #### L 100.0100, L501.2450, L500.4050 #### [facility] [address] [place], [address] ECRCL 49.58 ml/min Low 50-250 [facility] Comment on above: Performed By: #### L 100.0100, L501.2450, L500.4050 #### [facility] [address], [address] GAP 11 Normal 5-15 [facility] Comment on above: Performed By: #### L 100.0100, L501.2450, L500.4050 #### [facility] [address] [place], [address] GFR/1.73 sq M.predicted among non-blacks MDRD (S/P/Bld) [Vol rate/Area] 69 mL/min/{1.73_m2} Normal >60 [facility] Comment on above: Result Comment: mL/m in/1.73m2 CKD-EPI Creatinine Equation (2020) Performed By: #### L 100.0100, L501.2450, L500.4050 #### [facility] [address] [place], [address] Globulin (S) [Mass/Vol] 2.4 g/dL Normal 2.2-4.2 [facility] Comment on above: Performed By: #### L 100.0100, L501.2450, L500.4050 #### [facility] [address] [place], [address] Glucose [Mass/Vol] 121 mg/dL High 70-99 [facility] Comment on above: Performed By: #### L 100.0100, L501.2450, L500.4050 #### [facility] [address] [place], [address] Potassium [Moles/Vol] 4.0 mmol/L Normal 3.3-5.1 [facility] Comment on above: Performed By: #### L 100.0100, L501.2450, L500.4050 #### [facility] [address] [place], [address] Sodium [Moles/Vol] 137 mmol/L Normal 133-145 [facility] Comment on above: Performed By: #### L 100.0100, L501.2450, L500.4050 #### [facility] [address] [place], [address] T PROT 6.8 g/dL Normal 5.9-8.4 [facility] Comment on above: Performed By: #### L 100.0100, L501.2450, L500.4050 #### [facility] [address] [place], [address] Urea nitrogen [Mass/Vol] 13 mg/dL Normal 4-19 [facility] Comment on above: Performed By: #### L 100.0100, L501.2450, L500.4050 #### [facility] [address] [place], [address] Emergency Department Summary on 10-06-2024 Emergency Department Summary [facility] Medical Records Department [address] [place] [address] Emergency Department Summary 10/06/24 MR#: [id number] Acct: [id number] Name: ALISON SANTACRUZ Rep #: [id number] : 1940 84 From: Chris Phillips DO PCP: Dr. Eddie Waggoner MD Status:[facility] ER Location: ED ADDENDUM by Dr. Winston Alexis MD on 10/06/24 at 1731 Patient was endorsed to me by Dr. Hernandez to check the CT scan on this patient having right lower quadrant abdominal pain. I reviewed the radiology report and there is no evidence of an acute appendicitis. Upon repeat examination, she is resting comfortably. She states she has a history of irritable bowel syndrome and she follows with Dr. Shook's office. She is motivated for discharge. I feel she can be discharged safely home with follow-up. Return instructions to the emergency department were reviewed. Disposition is discharged home in stable condition. 10/06/24 1731 Cosigner Signature (if applicable): cc: Dr. Eddie Waggoner MD * Signed HPI History of Present Illness Chief Complaint: Abd Pain Narrative Narrative: Chief complaint and HPI: Abdominal pain. 84-year-old female with past medical history of IBS with chronic constipation, hypothyroidism, HTN presents for evaluation of abdominal pain. Patient states for several days she has had diffuse abdominal pain. States she was seen in urgent care on who recommended her to go to the emergency department for imaging. She states she was hoping the symptoms would improve at home however they have not which is why she presents today. She states at baseline she has black/dark stools. She denies any bright red blood per rectum. She denies any fever, chills, shortness of breath, chest pain, emesis, dysuria. Does endorse bloating and diarrhea. Review of systems: See HPI Medications: As listed on the chart Allergies: As listed on the chart PFSH: Per chart Vital signs: As listed on the chart. Reviewed. Physical exam: Gen: A O x3, NAD Head: Normocephalic, atraumatic Eyes: No sclera icterus, conjunctiva clear ENT: Moist mucous membranes Neck: Trachea midline, No JVD CV: RRR, no murmurs, no peripheral edema Resp: Lungs CTA BL, no w/r/c GI: Abd soft, mildly distended, mild tenderness to palpation diffusely, no r/r/g Rectal: Normal external examination. Non-thrombosed external hemorrhoids. Normal tone and sensation. No masses, fluctuance, or tenderness. No pain out of proportion. Stool dark on gloved finger : No CVA tenderness Musc: Full ROM, no deformity Skin: Warm, dry Neuro: Alert, oriented, grossly intact, sensation intact Psych: Cooperative, appropriate mood and affect [facility] Medical History Arthritis Gastric reflux Wears hearing [...] DAILY 07/14/22 12/15/23 Hi story glucosamine 750 nn-qgtnuofqzxg-ogg 1 tab PO DAILY 07/14/22 04/15/24 History [...] BID #30 caps 02/22/24 Unk nown Rx linaclotide 72 mcg capsule 72 mcg PO QAM #60 caps 05/31/24 Un known Rx (Linzess) diphenhydramine HCl 25 mg capsule 50 mg (2 x 25 mg) PO ONCE #2 caps 06/19/24 Unknown Rx (Benadryl) prednisone 50 mg tablet 50 mg PO QDAY #3 tabs 06/19/24 Unk nown Rx Allergy/AdvReac Type Severity Reaction Status Date / Time Iodinated Contrast Media Allergy Rash Verified 10/06/24 13:15 atorvastatin (From Lipitor) AdvReac Upset Verified 10/06/24 13:15 Stomach bupropion (From Wellbutrin) AdvReac Other Verified 10/06/24 13:15 paroxetine (From Paxil) AdvReac Fel (more content not included)... Normal [facility] Lipaseon 10-06-2024 Lipase [Catalytic activity/Vol] 23 U/L Normal 13-75 [facility] Comment on above: Result Comment: Yuko joseph note: LIPASE revised reference range effective 22. New Lipase methodology. Expected to produce lower values than the previous assay method. NEW Reference Range: 13 - 75 U/L Performed By: #### L 100.0100, L501.2450, L500.4050 #### [facility] [address] [place], [address] Stool Occult Blood iFOBon STOB Positive Normal [facility] Comment on above: Performed By: #### P H.PYLORI #### [facility] [address] [place], [address] Urinalysis, Completeon 10-06 BACTERIA 0 SEEN Normal None Seen [facility] Comment on above: Order Comment: ONESIMO ELLISOR TO SPECIFY Performed By: #### P H.PYLORI #### [facility] [address] [place], [address] EPI,SQUAMOUS 0 SEEN Normal 5-10 [facility] Comment on above: Order Comment: ONESIMO CTOR TO SPECIFY Performed By: #### P H.PYLORI #### [facility] [address] [place], [address] Mucus Ql (Urine sed) 0 SEEN Normal [facility] Comment on above: Order Comment: ONESIMO CTOR TO SPECIFY Performed By: #### P H.PYLORI #### [facility] [address] [place], [address] RBC 0 SEEN Normal 0-5 [facility] Comment on above: Order Comment: ONESIMO CTOR TO SPECIFY Performed By: #### P H.PYLORI #### [facility] [address] [place], [address] WBC 0 SEEN Normal 0-5 [facility] Comment on above: Order Comment: ONESIMO CTOR TO SPECIFY Performed By: #### P H.PYLORI #### [facility] [address] [place], [address] CNOVon 10-05-2024 CNOV Office Visit ([facility]) -------- ALISON SANTACRUZ ([id number]) 1940 F Date Time Provider Department 10/05/24 2:15 PM DAVID ROCHA [facility] During your visit today, we recorded the following information about you: Temperature Pulse Respiration Blood pressure 99.4 degrees 85/minute 18/minute 122/78 Weight 72.2 kg David Rocha MD 10/05/2024 2:54 PM Signed [facility] Subjective Alison Santacruz is a 84 year old female. [...] Objective BP 122/78 Pulse 85 Temp 37.4 ?C (99.4 ?F) (Tympanic) Resp 18 Wt 72.2 kg (159 [...] likely for the following reason(s): suggested by HANDP - COVID is less likely for the following reason(s): Negative home COVID tests - Influenza is less likely for the following reason(s): Not currently circulating in the community - Acute abdomen is less likely for the following reason(s): Benign exam Procedures Allergies As of Date: 10/05/2024 Noted Allergy Reaction KBCUTKS-XTA-GRG REDUCTASE INHIBIT*10/05/2024 5 - Intolerance Date Reviewed: 10/05/2024 Reviewed by: Damaris Hubbard LPN - Fully Assessed Reason for Visit: Flu Like Symptoms [267] Cmt: X 3 days-diarrhea, stomach hurts, nausea, hot and feels dizzy Primary Visit Diagnosis:Influenza-like illness [J11.1] Other Visit Diagnosis:Nausea [R11.0] Order(s):ondansetron orally disintegrating (ZOFRAN ODT) 4 mg disintegrating tabletTake 1 tablet by mouth every 8 hours as needed for nausea/vomiting for up to 3 days.Disp: 9 tabletRfl: 0 Prescriptions as of 10/05/2024 - traZODone (DESYREL) 100 mg tablet - citalopram (CELEXA) 40 mg tablet - levothyroxine (SYNTHROID) 137 mcg tablet - amLODIPine (NORVASC) 5 mg tablet - LINZESS 72 mcg capsule - pantoprazole DR (PROTONIX) 40 mg tablet - busPIRone (BUSPAR) 10 mg tablet - bromfenac (BROMSITE) 0.075 % drop INSTILL 1 DROP IN RIGHT EYE DAILY. USE DAILY IN OPERATIVE EYE 3 DAYS PRIOR TO SURGERY AND DAILY AFTER SURGERY - fluorometholone (FML LIQUID FILM) 0.1 % ophthalmic suspension - ondansetron orally disintegrating (ZOFRAN ODT) 4 mg disintegrating tablet Take 1 tablet by mouth every 8 hours as needed for nausea/vomiting for up to 3 days. Problem List As Of Date: 10/05/2024 (None) Prescriptions ordered this encounter Disp Refills Start End ONDANSETRON 4 MG DISINTEGRATING TABL* 9 ta* 0 10/05/2024 10/08/2024 Route: PO Sig: Take 1 tablet by mouth every 8 hours as needed for nausea/vomiting for up to 3 days. Encounter Status:Closed by DAVID ROCHA on 10/05/24 Normal [facility] Shoulder min 2 Viewson 07-30 Shoulder min 2 Views [facility] Imaging Services [address] [place] [address] Shoulder min 2 Views MR#: [id number] Acct: [id number] Name: ALISON SANTACRUZ Rep #: [id number] : 1940 F 84 From: Zbigniew Martinez MD PCP: Dr. Eddie Waggoner MD Status: REG CLI Study: Shoulder min 2 Views Date of Exam: 07/30/24 Exam# [id number] Ordering Dr: Eddie Waggoner MD PROCEDURE: SHOULDER MIN 2 VIEWS 07/30/2024 REASON FOR EXAM: SHOULDER PAIN X 1 MONTH, NO INJURY TECHNIQUE: Four views right shoulder COMPARISON: None available FINDINGS: No fracture or dislocation. Mild glenohumeral joint osteoarthrosis. Htlj-jb-uawersvf acromioclavicular joint osteoarthrosis with a downward directed osteophyte at the distal clavicle suggested. Visualized right lung appears clear. RAD/Shoulder min 2 Views IMPRESSION: Osteoarthrosis as above. Reading Location: [facility] CC: Dr. Eddie Waggoner MD Electrotype Caster: Signed Normal [facility] Abdomen/Pelvis WITH Contrast on 06-20-2024 Abdomen/Pelvis WITH Contrast [facility] Imaging Services [address] [place] [address] Abdomen/Pelvis WITH Contrast MR#: [id number] Acct: [id number] Name: ALISON SANTACRUZ Rep #: [id number] : 1940 F 83 From: Celia lance MD PCP: Dr. Eddie Waggoner MD Status: REG CLI Study: Abdomen/Pelvis WITH Contrast Date of Exam: Exam# [id number] Ordering Dr: Rajwinder Luis PROCEDURE: ABDOMEN/PELVIS WITH [...] cystitis. 12. Moderate diffuse spondylosis. Reading Location: [place] [address] CC: Dr. Eddie Waggoner MD; LIZZETTE Edwards Electrotype Caster: Signed Normal [facility] CBC W/Diff, Automatedon 03-2 Absolute Lymph 0.99 X10 3/uL Normal 0.83-4.51 [facility] Comment on above: Performed By: #### L 501.2450, L100.0100, L500.4050 ####[facility] [address] [place], [address] Absolute Neut 1.6 X10 3/uL Low 2.0-7.7 [facility] Comment on above: Performed By: #### L 501.2450, L100.0100, L500.4050 ####[facility] [address] [place], [address] Basophils/100 WBC (Bld) 1.6 % High 0-1 [facility] Comment on above: Performed By: #### L 501.2450, L100.0100, L500.4050 ####[facility] [address] [place], [address] Eosinophils/100 WBC (Bld) 7.2 % High 0-5 [facility] Comment on above: Performed By: #### L 501.2450, L100.0100, L500.4050 ####[facility] [address] [place], [address] Erythrocyte distribution width (RBC) [Ratio] 12.0 % Normal 11.6-14.6 [facility] Comment on above: Performed By: #### L 501.2450, L100.0100, L500.4050 ####[facility] [address] [place], [address] Hematocrit (Bld) [Volume fraction] 37.2 % Normal 37-47 [facility] Comment on above: Performed By: #### L 501.2450, L100.0100, L500.4050 ####[facility] [address] [place], [address] Hemoglobin (Bld) [Mass/Vol] 12.9 g/dL Normal 12.0-15.0 [facility] Comment on above: Performed By: #### L 501.2450, L100.0100, L500.4050 ####[facility] [address] [place], [address] IG% 0.600 Normal 0.0-0.9 [facility] Comment on above: Result Comment: IG% - Immature Granulocytes (promyelocytes, myelocytes and metamyelocytes) > 1% indicates that a LEFT SHIFT is Present. Performed By: #### L 501.2450, L100.0100, L500.4050 ####[facility] [address] [place], [address] Lymphocytes/100 WBC (Bld) 31.1 % Normal 19-41 [facility] Comment on above: Performed By: #### L 501.2450, L100.0100, L500.4050 ####[facility] [address] [place], [address] MCH (RBC) [Entitic mass] 30.6 pg Normal 27.0-32.0 [facility] Comment on above: Performed By: #### L 501.2450, L100.0100, L500.4050 ####[facility] [address] [place], [address] MCHC (RBC) [Mass/Vol] 34.7 g/dL Normal 32-36 [facility] Comment on above: Performed By: #### L 501.2450, L100.0100, L500.4050 ####[facility] [address] [place], [address] MCV (RBC) [Entitic vol] 88.4 fL Normal 81-99 [facility] Comment on above: Performed By: #### L 501.2450, L100.0100, L500.4050 ####[facility] [address] [place], [address] Monocytes/100 WBC (Bld) 10.1 % High 0-10 [facility] Comment on above: Performed By: #### L 501.2450, L100.0100, L500.4050 ####[facility] [address] [place], [address] Neutrophils/100 WBC (Bld) 49.4 % Normal 47-70 [facility] Comment on above: Performed By: #### L 501.2450, L100.0100, L500.4050 ####[facility] [address] [place], [address] Nucleated RBC (Bld) [#/Vol] 0 10*3/uL Normal 0-5 [facility] Comment on above: Performed By: #### L 501.2450, L100.0100, L500.4050 ####[facility] [address] [place], [address] Platelet mean volume (Bld) [Entitic vol] 8.7 fL Normal 6.2-12.0 [facility] Comment on above: Performed By: #### L 501.2450, L100.0100, L500.4050 ####[facility] [address] [place], [address] Platelets (Bld) [#/Vol] 178 10*3/uL Normal 150-450 [facility] Comment on above: Performed By: #### L 501.2450, L100.0100, L500.4050 ####[facility] [address] [place], [address] RBC (Bld) [#/Vol] 4.21 10*6/uL Normal 4.2-5.4 [facility] Comment on above: Performed By: #### L 501.2450, L100.0100, L500.4050 ####[facility] [address] [place], [address] RDW SD 38.6 fl Normal 35.1-43.9 [facility] Comment on above: Performed By: #### L 501.2450, L100.0100, L500.4050 ####[facility] [address] [place], [address] WBC (Bld) [#/Vol] 3.2 10*3/uL Low 4.4-11.0 [facility] Comment on above: Performed By: #### L 501.2450, L100.0100, L500.4050 ####[facility] [address] [place], [address] Comprehensive Metabolic Prof ilon 05-31-2024 Albumin [Mass/Vol] 4.6 g/dL Normal 3.4-4.8 [facility] Comment on above: Performed By: #### L 501.2450, L100.0100, L500.4050 ####[facility] [address] [place], [address] Albumin/Globulin [Mass ratio] 2.0 {ratio} Normal 0.9-2.4 [facility] Comment on above: Performed By: #### L 501.2450, L100.0100, L500.4050 ####[facility] [address] [place], [address] ALK PHOS 70 U/L Normal 35-104 [facility] Comment on above: Performed By: #### L 501.2450, L100.0100, L500.4050 ####[facility] [address] [place], [address] ALT [Catalytic activity/Vol] 15 U/L Normal <=34 [facility] Comment on above: Performed By: #### L 501.2450, L100.0100, L500.4050 ####[facility] [address] [place], [address] AST [Catalytic activity/Vol] 21 U/L Normal <=31 [facility] Comment on above: Performed By: #### L 501.2450, L100.0100, L500.4050 ####[facility] [address] [place], [address] Bilirubin [Mass/Vol] 0.94 mg/dL Normal 0.00-1.30 [facility] Comment on above: Performed By: #### L 501.2450, L100.0100, L500.4050 ####[facility] [address] [place], [address] BUN/CRE 16.8 RATIO Normal 10-20 [facility] Comment on above: Performed By: #### L 501.2450, L100.0100, L500.4050 ####[facility] [address] [place], [address] Calcium [Mass/Vol] 9.5 mg/dL Normal 7.6-11.0 [facility] Comment on above: Performed By: #### L 501.2450, L100.0100, L500.4050 ####[facility] [address] [place], [address] Chloride [Moles/Vol] 103 mmol/L Normal 98-108 [facility] Comment on above: Performed By: #### L 501.2450, L100.0100, L500.4050 ####[facility] [address] [place], [address] CO2 [Moles/Vol] 22.3 mmol/L Normal 21.0-32.0 [facility] Comment on above: Performed By: #### L 501.2450, L100.0100, L500.4050 ####[facility] [address] [place], [address] GAP 15 Normal 5-15 [facility] Comment on above: Performed By: #### L 501.2450, L100.0100, L500.4050 ####[facility] [address] [place], [address] GFR/1.73 sq M.predicted among non-blacks MDRD (S/P/Bld) [Vol rate/Area] 67 mL/min/{1.73_m2} Normal >60 [facility] Comment on above: Result Comment: mL/m in/1.73m2 CKD-EPI Creatinine Equation (2020) Performed By: #### L 501.2450, L100.0100, L500.4050 ####[facility] [address] [place], [address] Globulin (S) [Mass/Vol] 2.3 g/dL Normal 2.2-4.2 [facility] Comment on above: Performed By: #### L 501.2450, L100.0100, L500.4050 ####[facility] [address] [place], [address] Potassium [Moles/Vol] 4.1 mmol/L Normal 3.3-5.1 [facility] Comment on above: Performed By: #### L 501.2450, L100.0100, L500.4050 ####[facility] [address] [place], [address] Sodium [Moles/Vol] 140 mmol/L Normal 133-145 [facility] Comment on above: Performed By: #### L 501.2450, L100.0100, L500.4050 ####[facility] [address] [place], [address] T PROT 6.9 g/dL Normal 5.9-8.4 [facility] Comment on above: Performed By: #### L 501.2450, L100.0100, L500.4050 ####[facility] [address] [place], [address] Creatinine [Mass/Vol] 0.85 mg/dL Normal 0.70-1.20 [facility] Comment on above: Performed By: #### L 501.2450, L100.0100, L500.4050 ####[facility] [address], [address] Glucose [Mass/Vol] 97 mg/dL Normal 70-99 [facility] Comment on above: Performed By: #### L 501.2450, L100.0100, L500.4050 ####[facility] [address], [address] Urea nitrogen [Mass/Vol] 14 mg/dL Normal 4-19 [facility] Comment on above: Performed By: #### L 501.2450, L100.0100, L500.4050 ####[facility] [address] [place], [address] Gastroenterology Visit Repor ton 05-31-2024 Gastroenterology Visit Report [facility] Gastroenterology [address] [place] [address] OFFICE VISIT Date of Service: 05/31/24 MR#: [id number] Acct: [id number] Name: ALISON SANTACRUZ Rep #: [id number] : 1940 Provider: LIZZETTE Edwards Age/Sex: 83/F Location: [facility] Status: Signed Intake Vital Signs 04/16/24 13:36 Height 5 ft 6 in Intake Visit Reasons: Ongoing issues Chief Complaint: abdominal pain Allergies Iodinated Contrast Media Allergy (Verified 04/16/24 13:29) Rash atorvastatin (From Lipitor) Adverse Reaction (Verified 04/16/24 13:29) Upset Stomach bupropion (From Wellbutrin) Adverse Reaction (Verified 04/16/24 13:29) Other paroxetine (From Paxil) Adverse Reaction (Verified 04/16/24 13:29) [place] poorly rosuvastatin (From Crestor) Adverse Reaction (Verified [...] gallbladder. Continues taking pantoprazole and dicyclomine daily. [facility] Medical History Arthritis Gastric reflux Wears hearing [...] for itchy (more content not included)... Normal [facility] Lipaseon 05-31-2024 Lipase [Catalytic activity/Vol] 26 U/L Normal 13-75 [facility] Comment on above: Result Comment: Yuko joseph note: LIPASE revised reference range effective 22. New Lipase methodology. Expected to produce lower values than the previous assay method. NEW Reference Range: 13 - 75 U/L Performed By: #### L 501.2450, L100.0100, L500.4050 ####[facility] [address] [place], [address] Stool Occult Blood iFOBon STOB Negative Normal [facility] Comment on above: Performed By: #### M 100.7900 #### [facility] [address], [address] Abd Inc Decub and/or Erecton 05-30-2024 Abd Inc Decub and/or Erect [facility] Imaging Services [address] [place], [place] [address] Abd Inc Decub and/or Erect MR#: [id number] Acct: [id number] Name: ALISON SANTACRUZ Rep #: [id number] : 1940 F 83 From: Karel Mortensen MD PCP: Dr. Eddie Waggoner MD Status: REG CLI Study: Abd Inc Decub and/or Erect Date of Exam: 05/30 Exam# [id number] Ordering Dr: Eddie Waggoner MD EXAM: XR [...] the colon consistent with constipation. Reading Location: [facility] CC: Dr. Eddie Waggoner MD Electrotype Caster: Signed Normal [facility] Thyroid Stim Hormone (TSH)on 04-22-2024 TSH 2.120 uIU/mL Normal 0.358-3.740 [facility] Comment on above: Performed By: #### L 501.9520 #### [facility] [address] [facility] [place], [place], [address] EGD Reporton 04-16-2024 EGD Report [facility] Medical Records Department [address] [place] [address] EGD Report MR#: [id number] Acct: [id number] Name: ALISON SANTACRUZ Rep #: [id number] : 1940 83 From: Willie Shook DO PCP: Dr. Eddie Waggoner MD Status:REG [facility] [place] Name: Alison Santacruz Procedure Date: 04/16/2024 [...] pathology results. Procedure Code(s): --- Professional --- 87301, Esophagogastroduodenosco py, flexible, transoral; with biopsy, single or multiple CPT copyright 2021 [employer]. All rights reserved. The codes documented in this report are preliminary and upon oiler bander review may be revised to meet current compliance requirements. Willie Shook DO 04/16/2024 3:20:24 PM This report has been signed electronically. Number of Addenda: 0 Note Initiated On: 04/16/2024 2:52 PM 04/16/24 1520 Date Willie Shook DO Cosigner Signature: Date (if indicated) CC: Dr. Eddie Waggoner MD; Willie Shook DO Date Dictated: 04/16/24 8034 Date Transcribed: Electrotype Caster: ES Signed Normal [facility] H Pylori (initial)on 025 H Pylori (initial) ---- Patient Age/Sex Location Account Attending Physician ALISON SANTACRUZ 83/F EN [id number] Willie Shook DO Specimen: [id number] Received: 04/17/24 Status: AKIRA Nogueraradha Num: [id number] Spec Type: IMMUNO Subm Dr: Willie Shook DO PHYSICIAN INSTITUTION [place] [address] SPECIMEN INFORMATION: Tissue Source: B- Gastric cardia biopsy, C- Distal esophagus biopsy Clinical Info: Heartburn, GERD Specimen Number: [id number] B,C CPT code: 32944p3,74402 METHODOLOGY: Deparaffinized sections of prefer/formalin-fixed tissue or [...] developed and their performance characteristics determined by [facility]. They may not have been cleared or approved by the U.S. Food and Drug Administration. The FDA has determined that such clearance or approval is not necessary. The above immunohistochemical/dual ENRIQUETA markers are ordered and reviewed by the Pathologist. INTERPRETATION: B. Gastric cardia, biopsy: Negative for Helicobacter pylori organisms. C. Distal esophagus, biopsy: Negative for dysplasia. 04/19/2024 Signed (signature on file) Dr. Alejandro Rashid MD 04/19/24 1151 Normal [facility] Comment on above: Performed By: #### P H.PYLORI #### [facility] [address] [facility]. [place], [place], [address] MR/POSTOP.Prisca 04-16-2024 MR/POSTOP.[facility] Medical Records Department [address] [place] [address] Anesthesia Postop Eval I 04/16/241517 MR#: [id number] Acct: [id number] Name: ALISON SANTACRUZ Rep #: [id number] : 1940 83 From: Jim Middleton PCP: Dr. Eddie Waggoner MD Status:REG [facility] [place] Race: C Location: [place] [address] Anesthesia: Postop Eval I Current Vital Signs [...] Anesthesia document: Postop Eval 1 completed: Yes 04/16/241518 Date Jim Gregg Signature: Date CC: Signed Normal [facility] MR/DYHPADWK3bi 04-16-2024 MR/POSTOPAN2 [facility] Medical Records Department [address] [place] [address] Anesthesia Postop Eval II 04/16/241830 MR#: [id number] Acct: [id number] Name: ALISON SANTACRUZ Rep #: [id number] : 1940 83 From: Oliver Kapoor MD PCP: Dr. Eddie Waggoner MD Status:DEP [facility] [place] Race: C Location: EN Anesthesia Postop [...] Vomiting: No Complications Anesthesia Complication: No 04/16/241830 Oliver Kapoor MD Cosigner Signature: Date CC: Signed Normal [facility] Special Stain Group Ion 04-06 Special Stain Group I ------ Patient Age/Sex Location Account Attending Physician ALISON SANTACRUZ 83/F [place] [id number] Willie Shook DO Specimen: [id number] Received: 04/17/24 Status: AKIRA Kelly Num: [id number] Spec Type: EGD BIOPSY Jana Dr: Willie Shook DO HEADER OPERATION: EGD PRE-OP DIAGNOSIS: Heartburn, [...] for Helicobacter pylori will be reported separately ([id number]). C. Alcian blue/PAS stain with matched control is used in the evaluation of the specimen. Immunohistochemistry ([id number]) for P53 and Ki-67 will be performed, [...] Account Attending Physician ALISON SANTACRUZ 83/F EN [id number] Willieonur Shook DO tissue that in aggregate measure [...] totally submitted in one cassette. 04/17/2024 TC:3 [facility]:[id number] Patient Age/Sex Location Account Attending Physician ALISON SANTACRUZ 83/F [place] [id number] Willie Shook DO Signed (signature on file) Dr. Alejandro Rashid MD 04/19/24 0934 Normal [facility] Comment on above: Performed By: #### P H.PYLORI #### [facility] [address] [place], [place], [address] MR/PATGary 04-15-2024 /PAT.[facility] Medical Records Department [address] [place] [address] PAT - Anesthesia 04/15/24 1032 MR#: [id number] Acct: [id number] Name: ALISON SANTACRUZ Rep #: [id number] : 1940 83 From: Casey Staley MD PCP: Dr. Eddie Waggoner MD Status:PRE [facility] [place] Race: C Location: EN Pre-Assessment Diagnosis/Proposed Procedure Planned Operative Procedure(s): EGD Anesthesia History Anesthesia History - last dipper: Anesthesia History - last dipper Hx Hospitalization No 04/11/24 15:16 Any Problems [...] take am of surgery PONV PONV - last dipper: PONV - last dipper Female Yes 04/11/24 15:16 HX of Motion [...] 12/19/23 13:28 Respiratory Assessment Respiratory Assessment - last dipper: Respiratory Tract Infection Hx - last dipper Hx Respiratory Tract Infection No 04/11/24 15:16 STOP Sleep Apnea STOP Sleep Apnea - last dipper: STOP Sleep Apnea - last dipper Hx Hypertension Yes: CONTROLLED ON MEDS 04/11/24 [...] 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 Use History - last dipper: Tobacco Use History - last dipper Tobacco Use Smoking Status Never smoker 04/11/24 15:16 Hx Tobacco Use No 04/11/24 15:16 Years Smoking Packs Smoked per Day Smoking Cessation Date was within the last 15 years Hx Smoking Cessation Date Hx Smoking Cessation Counseling Hematologic Medial History Hematologic Hx - last dipper: 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 Specify any problems Hx of Preganancy in last 3 No 04/11/24 15:16 Months Nurse Filling Out Transfusion MGRIMARK 04/11/24 15:16 Questions: Date: 04/11/24 04/11/24 15:16 Time: 15:18 04/11/24 15:16 Patient unable to answer at this time (ie. confused, unrespo /Reproduction History /Reproductive History - last dipper: /Reproductive Hx- last dipper Hx Now Gestational Age (in weeks): EDC: Hx Hx Para Hx Section SAB No 12/15/23 09:44 [facility] Medical History (Updated 04/11/24 @ 15:27 by [...] DAILY 07/14/22 12/15/23 Hi story glucosamine 750 gq-avkxlokxgbz-bnf 1 tab PO DAILY 07/14/22 12/18/23 His (more content not included)... Normal [facility] CBC W/Diff, Automatedon 12- Absolute Lymph 1.41 X10 3/uL Normal 0.83-4.51 [facility] Comment on above: Performed By: #### L 100.0100, L500.4050, L501.2450 #### [facility] [address] [place], [address] Absolute Neut 2.6 X10 3/uL Normal 2.0-7.7 [facility] Comment on above: Performed By: #### L 100.0100, L500.4050, L501.2450 #### [facility] [address] [place], [address] Basophils/100 WBC (Bld) 1.0 % Normal 0-1 [facility] Comment on above: Performed By: #### L 100.0100, L500.4050, L501.2450 #### [facility] [address], [address] Eosinophils/100 WBC (Bld) 4.4 % Normal 0-5 [facility] Comment on above: Performed By: #### L 100.0100, L500.4050, L501.2450 #### [facility] [address] [place], [address] Erythrocyte distribution width (RBC) [Ratio] 11.9 % Normal 11.6-14.6 [facility] Comment on above: Performed By: #### L 100.0100, L500.4050, L501.2450 #### [facility] [address] [place], [address] Hematocrit (Bld) [Volume fraction] 38.2 % Normal 37-47 [facility] Comment on above: Performed By: #### L 100.0100, L500.4050, L501.2450 #### [facility] [address] [place], [address] Hemoglobin (Bld) [Mass/Vol] 12.9 g/dL Normal 12.0-15.0 [facility] Comment on above: Performed By: #### L 100.0100, L500.4050, L501.2450 #### [facility] [address] [place], [address] IG% 1.000 High 0.0-0.9 [facility] Comment on above: Result Comment: IG% - Immature Granulocytes (promyelocytes, myelocytes and metamyelocytes) > 1% indicates that a LEFT SHIFT is Present. Performed By: #### L 100.0100, L500.4050, L501.2450 #### [facility] [address] [place], [address] Lymphocytes/100 WBC (Bld) 29.5 % Normal 19-41 [facility] Comment on above: Performed By: #### L 100.0100, L500.4050, L501.2450 #### [facility] [address] [place], [address] MCH (RBC) [Entitic mass] 30.1 pg Normal 27.0-32.0 [facility] Comment on above: Performed By: #### L 100.0100, L500.4050, L501.2450 #### [facility] [address] [place], [address] MCHC (RBC) [Mass/Vol] 33.8 g/dL Normal 32-36 [facility] Comment on above: Performed By: #### L 100.0100, L500.4050, L501.2450 #### [facility] [address] [place], [address] MCV (RBC) [Entitic vol] 89.0 fL Normal 81-99 [facility] Comment on above: Performed By: #### L 100.0100, L500.4050, L501.2450 #### [facility] [address] [place], [address] Monocytes/100 WBC (Bld) 8.8 % Normal 0-10 [facility] Comment on above: Performed By: #### L 100.0100, L500.4050, L501.2450 #### [facility] [address] [place], [address] Neutrophils/100 WBC (Bld) 55.3 % Normal 47-70 [facility] Comment on above: Performed By: #### L 100.0100, L500.4050, L501.2450 #### [facility] [address] [place], [address] Nucleated RBC (Bld) [#/Vol] 0 10*3/uL Normal 0-5 [facility] Comment on above: Performed By: #### L 100.0100, L500.4050, L501.2450 #### [facility] [address] [place], [address] Platelet mean volume (Bld) [Entitic vol] 8.6 fL Normal 6.2-12.0 [facility] Comment on above: Performed By: #### L 100.0100, L500.4050, L501.2450 #### [facility] [address] [place], [address] Platelets (Bld) [#/Vol] 193 10*3/uL Normal 150-450 [facility] Comment on above: Performed By: #### L 100.0100, L500.4050, L501.2450 #### [facility] [address] [place], [address] RBC (Bld) [#/Vol] 4.29 10*6/uL Normal 4.2-5.4 [facility] Comment on above: Performed By: #### L 100.0100, L500.4050, L501.2450 #### [facility] [address] [place], [address] RDW SD 38.3 fl Normal 35.1-43.9 [facility] Comment on above: Performed By: #### L 100.0100, L500.4050, L501.2450 #### [facility] [address] [place], [address] WBC (Bld) [#/Vol] 4.8 10*3/uL Normal 4.4-11.0 [facility] Comment on above: Performed By: #### L 100.0100, L500.4050, L501.2450 #### [facility] [address] [place], [address] Comprehensive Metabolic Prof [facility] 02-16-2024 Albumin [Mass/Vol] 3.9 g/dL Normal 3.2-5.0 [facility] Comment on above: Performed By: #### L 100.0100, L500.4050, L501.2450 #### [facility] [address] [place], [address] Albumin/Globulin [Mass ratio] 1.3 {ratio} Normal 0.9-2.4 [facility] Comment on above: Performed By: #### L 100.0100, L500.4050, L501.2450 #### [facility] [address] [place], [address] ALK P 63 U/L Normal 45-117 [facility] Comment on above: Performed By: #### L 100.0100, L500.4050, L501.2450 #### [facility] [address] [place], [address] ALT [Catalytic activity/Vol] 23 U/L Normal 13-56 [facility] Comment on above: Performed By: #### L 100.0100, L500.4050, L501.2450 #### [facility] [address] [place], [address] AST [Catalytic activity/Vol] 12 U/L Low 15-37 [facility] Comment on above: Performed By: #### L 100.0100, L500.4050, L501.2450 #### [facility] [address] [place], [address] Bilirubin [Mass/Vol] 1.00 mg/dL Normal 0.20-1.00 [facility] Comment on above: Result Comment: For patients on eltrombopag therapy, use of Dimension [place] TBIL is not recommended. Performed By: #### L 100.0100, L500.4050, L501.2450 #### [facility] [address] [place], [address] BUN/CRE 16.3 RATIO Normal 10-20 [facility] Comment on above: Performed By: #### L 100.0100, L500.4050, L501.2450 #### [facility] [address] [place], [address] CA,Total 9.4 mg/dL Normal 8.5-10.1 [facility] Comment on above: Performed By: #### L 100.0100, L500.4050, L501.2450 #### [facility] [address] [place], [address] Chloride [Moles/Vol] 103 mmol/L Normal 98-107 [facility] Comment on above: Performed By: #### L 100.0100, L500.4050, L501.2450 #### [facility] [address] [place], [address] CO2 [Moles/Vol] 30.0 mmol/L Normal 21.0-32.0 [facility] Comment on above: Performed By: #### L 100.0100, L500.4050, L501.2450 #### [facility] [address] [place], [address] Creatinine [Mass/Vol] 0.86 mg/dL Normal 0.55-1.02 [facility] Comment on above: Result Comment: The validity of the calculated GFR GFRAA in patients over 70 years has not been determined. Clinical correlation is essential. Performed By: #### L 100.0100, L500.4050, L501.2450 #### [facility] [address] [place], [address] EST GFR - AA 81 mL/min Normal >60 [facility] Comment on above: Result Comment: Afri can [place] GFR Calc Performed By: #### L 100.0100, L500.4050, L501.2450 #### [facility] [address] [place], [address] GAP 4 Low 5-15 [facility] Comment on above: Performed By: #### L 100.0100, L500.4050, L501.2450 #### [facility] [address] [place], [address] GFR/1.73 sq M.predicted among non-blacks MDRD (S/P/Bld) [Vol rate/Area] 67 mL/min/{1.73_m2} Normal >60 [facility] Comment on above: Result Comment: Non- GFR Calc Performed By: #### L 100.0100, L500.4050, L501.2450 #### [facility] [address] [place], [address] Globulin (S) [Mass/Vol] 2.9 g/dL Normal 2.2-4.2 [facility] Comment on above: Performed By: #### L 100.0100, L500.4050, L501.2450 #### [facility] [address] [place], [address] Glucose [Mass/Vol] 94 mg/dL Normal 74-106 [facility] Comment on above: Performed By: #### L 100.0100, L500.4050, L501.2450 #### [facility] [address] [place], [address] Potassium [Moles/Vol] 4.4 mmol/L Normal 3.5-5.1 [facility] Comment on above: Performed By: #### L 100.0100, L500.4050, L501.2450 #### [facility] [address], [address] Sodium [Moles/Vol] 137 mmol/L Normal 136-145 [facility] Comment on above: Performed By: #### L 100.0100, L500.4050, L501.2450 #### [facility] [address] [place], [address] T PROT 6.8 g/dL Normal 6.4-8.2 [facility] Comment on above: Performed By: #### L 100.0100, L500.4050, L501.2450 #### [facility] [address] [place], [address] Urea nitrogen [Mass/Vol] 14 mg/dL Normal 7-18 [facility] Comment on above: Performed By: #### L 100.0100, L500.4050, L501.2450 #### [facility] [address] [place], [address] Gastroenterology Visit Repor ton 02-16-2024 Gastroenterology Visit Report [facility] [address] [place] [address] OFFICE VISIT Date of Service: 02/16/24 MR#: [id number] Acct: [id number] Name: ALISON SANTACRUZ Rep #: [id number] : 1940 Provider: LIZZETTE Edwards Age/Sex: 83/F Location: [facility] Status: Signed Intake Vital Signs 12/19/23 13:28 Height 5 ft 6 in Intake Visit Reasons: Diarrhea Chief Complaint: black tarry stools Allergies Iodinated Contrast Media Allergy (Verified 12/19/23 13:25) Rash atorvastatin (From Lipitor) Adverse Reaction (Verified 12/19/23 13:25) Upset Stomach bupropion (From Wellbutrin) Adverse Reaction (Verified 12/19/23 13:25) Other paroxetine (From Paxil) Adverse Reaction (Verified 12/19/23 13:25) [place] poorly rosuvastatin (From Crestor) Adverse Reaction (Verified [...] BM. Reports poor appetite due to nausea. [facility] Medical History (Updated 02/16/24 @ 09:31 by [...] Appearance: average body habitus and well nourished [place] Head: normal to inspection Ears: hearing grossly normal bilaterally Nose: external nose normal Eyes General: appearance normal, osmany (more content not included)... Normal [facility] Lipaseon 02-16-2024 Lipase [Catalytic activity/Vol] 37 U/L Normal 13-75 [facility] Comment on above: Result Comment: Juareza se note: LIPASE revised reference range effective 22. New Lipase methodology. Expected to produce lower values than the previous assay method. NEW Reference Range: 13 - 75 U/L Performed By: #### L 100.0100, L500.4050, L501.2450 ####[facility] [address] [facility] [place], [address] Colonoscopy Reporton 024 Colonoscopy Report [facility] Medical Records Department [address] [place] [address] Colonoscopy Report MR#: [id number] Acct: [id number] Name: ALISON SANTACRUZ Rep #: [id number] : 1940 83 From: [facility] Friend DO PCP: Dr. Eddie Waggoner MD Status:REG SDC Patient Name: Alison Santacruz Procedure Date: 12/19/2023 [...] present medications. Procedure Code(s): --- Professional --- 96383, Colonoscopy, flexible; with band ligation(s) (eg, hemorrhoids) CPT copyright 2021 [employer]. All rights reserved. The codes documented in this report are preliminary and upon oiler bander review may be revised to meet current compliance requirements. Willie Shook DO 12/19/2023 3:16:04 PM This report has been signed electronically. Number of Addenda: 0 Note Initiated On: 12/19/2023 2:28 PM 12/19/23 1516 Date Willie Shook DO Cosigner Signature: Date (if indicated) CC: Dr. Eddie Waggoner MD; Willie Shook DO Date Dictated: 12/19/23 1428 Date Transcribed: Electrotype Caster: ES Signed [facility] MR/POSTOP.Prisca 12-19-2023 MR/POSTOP.[facility] Medical Records Department [address] [place] [address] Anesthesia Postop Eval I 12/19/23 1517 MR#: [id number] Acct: [id number] Name: ALISON SANTACRUZ Rep #: [id number] : 1940 83 From: Jim Middleton PCP: Dr. Eddie Waggoner MD Status:[facility] Y Race: C Location: [place] [address] Anesthesia: Postop Eval I Current Vital Signs [...] Jim Gregg Signature: Date CC: Signed Normal [facility]/[id number] 12-19-2023 [facility] Medical Records Department [address] [place] [address] Anesthesia Postop Eval II 12/19/23 1702 MR#: [id number] Acct: [id number] Name: ALISON SANTACRUZ Rep #: [id number] : 1940 83 From: Oliver Kapoor MD PCP: Dr. Eddie Waggoner MD Status:[facility] Y Race: C Location: [place] Anesthesia Postop [...] Anesthesia Complication: No 12/19/23 1703 Date Oliver Griffinignvalentina Signature: Date CC: Signed Normal [facility] Gastroenterology Visit Repor ton 11-27-2023 Gastroenterology Visit Report [facility] Gastroenterology [address] [place] [address] OFFICE VISIT Date of Service: 11/27/23 MR#: [id number] Acct: [id number] Name: ALISON SANTACRUZ Rep #: [id number] : 1940 Provider: LIZZETTE Edwards Age/Sex: 83/F Location: [facility] [place] Status: Signed Intake Vital Signs 08/09/23 09:12 Height 5 ft 5 in Intake Visit Reasons: Hemorrhoids Chief Complaint: hemrrhoids, nausea Allergies Iodinated Contrast Media Allergy (Verified 11/17/23 13:31) Rash atorvastatin (From Lipitor) Adverse Reaction (Verified 11/17/23 13:31) Upset Stomach bupropion (From Wellbutrin) Adverse Reaction (Verified 11/17/23 13:31) Other paroxetine (From Paxil) Adverse Reaction (Verified 11/17/23 13:31) [place] poorly rosuvastatin (From Crestor) Adverse Reaction (Verified [...] PO DAILY 07/14/22 11/17/23 History glucosamine 750 fp-pxvibedtvvh-ztc 1 tab PO DAILY 07/14/22 11/17/23 History no1 644 mg-C 30 mg-liset 1 mg tablet (Osteo Bi-Flex Triple Strength) levothyroxine 137 mcg tablet 137 mcg PO DAILY 07/14/22 11/17/23 History multivitamin 1 tab PO DAILY 07/14/22 11/17/23 History omega 9-pnx-odc-fish oil 60 mg-90 1 cap PO DAILY [...] her last colonoscopy was 7-8 years ago. [facility] Medical History Abnormal EKG Varicose veins of [...] to the office today for establishment with [facility]. Pt has a PMHx of valvular heart [...] Musculoskeletal: Posi (more content not included)... Normal [facility] Sinus/Facial Boneon 10-27-19 Sinus/Facial Bone [facility] Imaging Services [address] [place] [address] Sinus/Facial Bone MR#: [id number] Acct: [id number] Name: ALISON SANTACRUZ Rep #: [id number] : 1940 F 83 From: Ramon toledo MD PCP: Dr. Eddie Waggoner MD Status: REG CLI Study: Sinus/Facial Bone Date of Exam: 10/27/23 Exam# [id number] Ordering Dr: Balaji Avitia MD [id number] STUDY: CT MAXILLOFACIAL SINUSES REASON FOR EXAM: [...] Balaji Avitia MD; Dr. Eddie Waggoner MD Electrotype Caster: Signed Normal [facility] CBC W/Diff, Automatedon 10-05 Absolute Lymph 1.39 X10 3/uL Normal 0.83-4.51 [facility] Comment on above: Order Comment: Order Date: 10/26/23Order Info: [id number] - CBCD Performed By: #### L 500.4050, L500.4100, L501.9520, L100.0100 ####[facility] [address] [place], [address] Absolute Neut 2.8 X10 3/uL Normal 2.0-7.7 [facility] Comment on above: Order Comment: Order Date: 10/26/23Order Info: [id number] - CBCD Performed By: #### L 500.4050, L500.4100, L501.9520, L100.0100 ####[facility] [address] [place], [address] Basophils/100 WBC (Bld) 0.8 % Normal 0-1 [facility] Comment on above: Order Comment: Order Date: 10/26/23Order Info: [id number] - CBCD Performed By: #### L 500.4050, L500.4100, L501.9520, L100.0100 ####[facility] [address] [place], [address] Eosinophils/100 WBC (Bld) 4.0 % Normal 0-5 [facility] Comment on above: Order Comment: Order Date: 10/26/23Order Info: [id number] - CBCD Performed By: #### L 500.4050, L500.4100, L501.9520, L100.0100 ####[facility] [address] [place], [address] Erythrocyte distribution width (RBC) [Ratio] 11.9 % Normal 11.6-14.6 [facility] Comment on above: Order Comment: Order Date: 10/26/23Order Info: [id number] - CBCD Performed By: #### L 500.4050, L500.4100, L501.9520, L100.0100 ####[facility] [address] [place], [address] Hematocrit (Bld) [Volume fraction] 35.4 % Low 37-47 [facility] Comment on above: Order Comment: Order Date: 10/26/23Order Info: 018- - CBCD Performed By: #### L 500.4050, L500.4100, L501.9520, L100.0100 ####[facility] [address] [place], [address] Hemoglobin (Bld) [Mass/Vol] 12.0 g/dL Normal 12.0-15.0 [facility] Comment on above: Order Comment: Order Date: 10/26/23Order Info: 0184- - CBCD Performed By: #### L 500.4050, L500.4100, L501.9520, L100.0100 ####[facility] [address] [place], [address] IG% 0.600 Normal 0.0-0.9 [facility] Comment on above: Order Comment: Order Date: 10/26/23Order Info: [id number] - CBCD Result Comment: IG% - Immature Granulocytes (promyelocytes, myelocytes and metamyelocytes) > 1% indicates that a LEFT SHIFT is Present. Performed By: #### L 500.4050, L500.4100, L501.9520, L100.0100 ####[facility] [address] [place], [address] Lymphocytes/100 WBC (Bld) 29.1 % Normal 19-41 [facility] Comment on above: Order Comment: Order Date: 10/26/23Order Info: 018-1 - CBCD Performed By: #### L 500.4050, L500.4100, L501.9520, L100.0100 ####[facility] [address] [place], [address] MCH (RBC) [Entitic mass] 30.2 pg Normal 27.0-32.0 [facility] Comment on above: Order Comment: Order Date: 10/26/23Order Info: 018- - CBCD Performed By: #### L 500.4050, L500.4100, L501.9520, L100.0100 ####[facility] [address] [place], [address] MCHC (RBC) [Mass/Vol] 33.9 g/dL Normal 32-36 [facility] Comment on above: Order Comment: Order Date: 10/26/23Order Info: 018- - CBCD Performed By: #### L 500.4050, L500.4100, L501.9520, L100.0100 ####[facility] [address] [place], [address] MCV (RBC) [Entitic vol] 88.9 fL Normal 81-99 [facility] Comment on above: Order Comment: Order Date: 10/26/23Order Info: 018- - CBCD Performed By: #### L 500.4050, L500.4100, L501.9520, L100.0100 ####[facility] [address] [place], [address] Monocytes/100 WBC (Bld) 6.9 % Normal 0-10 [facility] Comment on above: Order Comment: Order Date: 10/26/23Order Info: [id number] - CBCD Performed By: #### L 500.4050, L500.4100, L501.9520, L100.0100 ####[facility] [address] [place], [address] Neutrophils/100 WBC (Bld) 58.6 % Normal 47-70 [facility] Comment on above: Order Comment: Order Date: 10/26/23Order Info: [id number] - CBCD Performed By: #### L 500.4050, L500.4100, L501.9520, L100.0100 ####[facility] [address] [place], [address] Nucleated RBC (Bld) [#/Vol] 0 10*3/uL Normal 0-5 [facility] Comment on above: Order Comment: Order Date: 10/26/23Order Info: 018- - CBCD Performed By: #### L 500.4050, L500.4100, L501.9520, L100.0100 ####[facility] [address] [place], [address] Platelet mean volume (Bld) [Entitic vol] 8.7 fL Normal 6.2-12.0 [facility] Comment on above: Order Comment: Order Date: 10/26/23Order Info: 018- - CBCD Performed By: #### L 500.4050, L500.4100, L501.9520, L100.0100 ####[facility] [address] [place], [address] Platelets (Bld) [#/Vol] 198 10*3/uL Normal 150-450 [facility] Comment on above: Order Comment: Order Date: 10/26/23Order Info: [id number] - CBCD Performed By: #### L 500.4050, L500.4100, L501.9520, L100.0100 ####[facility] [address] [place], [address] RBC (Bld) [#/Vol] 3.98 10*6/uL Low 4.2-5.4 [facility] Comment on above: Order Comment: Order Date: 10/26/23Order Info: [id number] - CBCD Performed By: #### L 500.4050, L500.4100, L501.9520, L100.0100 ####[facility] [address] [place], [address] RDW SD 37.7 fl Normal 35.1-43.9 [facility] Comment on above: Order Comment: Order Date: 10/26/23Order Info: [id number] - CBCD Performed By: #### L 500.4050, L500.4100, L501.9520, L100.0100 ####[facility] [address] [place], [address] WBC (Bld) [#/Vol] 4.8 10*3/uL Normal 4.4-11.0 [facility] Comment on above: Order Comment: Order Date: 10/26/23Order Info: [id number] - CBCD Performed By: #### L 500.4050, L500.4100, L501.9520, L100.0100 ####[facility] [address] [place], [address] Comprehensive Metabolic Prof ilon 10-26-2023 Albumin [Mass/Vol] 3.6 g/dL Normal 3.2-5.0 [facility] Comment on above: Order Comment: Order Date: 10/26/23Order Info: [id number] - CMPOrder Info: [id number] - LIPIDOrder Info: [id number] - TSH Performed By: #### L 500.4050, L500.4100, L501.9520, L100.0100 ####[facility] [address] [place], [address] Albumin/Globulin [Mass ratio] 1.1 {ratio} Normal 0.9-2.4 [facility] Comment on above: Order Comment: Order Date: 10/26/23Order Info: [id number] - CMPOrder Info: [id number] - LIPIDOrder Info: [id number] - TSH Performed By: #### L 500.4050, L500.4100, L501.9520, L100.0100 ####[facility] [address] [place], [address] ALK P 70 U/L Normal 45-117 [facility] Comment on above: Order Comment: Order Date: 10/26/23Order Info: [id number] - CMPOrder Info: [id number] - LIPIDOrder Info: [id number] - TSH Performed By: #### L 500.4050, L500.4100, L501.9520, L100.0100 ####[facility] [address] [place], [address] ALT [Catalytic activity/Vol] 26 U/L Normal 13-56 [facility] Comment on above: Order Comment: Order Date: 10/26/23Order Info: [id number] - CMPOrder Info: [id number] - LIPIDOrder Info: [id number] - TSH Performed By: #### L 500.4050, L500.4100, L501.9520, L100.0100 ####[facility] [address] [place], [address] AST [Catalytic activity/Vol] 23 U/L Normal 15-37 [facility] Comment on above: Order Comment: Order Date: 10/26/23Order Info: [id number] - CMPOrder Info: [id number] - LIPIDOrder Info: [id number] - TSH Performed By: #### L 500.4050, L500.4100, L501.9520, L100.0100 ####[facility] [address] [place], [address] Bilirubin [Mass/Vol] 0.70 mg/dL Normal 0.20-1.00 [facility] Comment on above: Order Comment: Order Date: 10/26/23Order Info: 07-1 - CMPOrder Info: [id number] - LIPIDOrder Info: [id number] - TSH Result Comment: For patients on eltrombopag therapy, use of Dimension [place] TBIL is not recommended. Performed By: #### L 500.4050, L500.4100, L501.9520, L100.0100 ####[facility] [address] [place], [address] BUN/CRE 16.8 RATIO Normal 10-20 [facility] Comment on above: Order Comment: Order Date: 10/26/23Order Info: 07-1 - CMPOrder Info: [id number] - LIPIDOrder Info: [id number] - TSH Performed By: #### L 500.4050, L500.4100, L501.9520, L100.0100 ####[facility] [address] [place], [address] CA,Total 8.7 mg/dL Normal 8.5-10.1 [facility] Comment on above: Order Comment: Order Date: 10/26/23Order Info: 07-1 - CMPOrder Info: [id number] - LIPIDOrder Info: [id number] - TSH Performed By: #### L 500.4050, L500.4100, L501.9520, L100.0100 ####[facility] [address] [place], [address] Chloride [Moles/Vol] 104 mmol/L Normal 98-107 [facility] Comment on above: Order Comment: Order Date: 10/26/23Order Info: 07-1 - CMPOrder Info: [id number] - LIPIDOrder Info: [id number] - TSH Performed By: #### L 500.4050, L500.4100, L501.9520, L100.0100 ####[facility] [address] [place], [address] CO2 [Moles/Vol] 30.0 mmol/L Normal 21.0-32.0 [facility] Comment on above: Order Comment: Order Date: 10/26/23Order Info: 07-1 - CMPOrder Info: [id number] - LIPIDOrder Info: 3 - TSH Performed By: #### L 500.4050, L500.4100, L501.9520, L100.0100 ####[facility] [address] [place], [address] Creatinine [Mass/Vol] 0.83 mg/dL Normal 0.55-1.02 [facility] Comment on above: Order Comment: Order Date: 10/26/23Order Info: 785- - CMPOrder Info: [id number] - LIPIDOrder Info: [id number] - TSH Result Comment: The validity of the calculated GFR GFRAA in patients over 70 years has not been determined. Clinical correlation is essential. Performed By: #### L 500.4050, L500.4100, L501.9520, L100.0100 ####[facility] [address] [place], [address] EST GFR - AA 84 mL/min Normal >60 [facility] Comment on above: Order Comment: Order Date: 10/26/23Order Info: 785- - CMPOrder Info: [id number] - LIPIDOrder Info: [id number] - TSH Result Comment: Afri can [place] GFR Calc Performed By: #### L 500.4050, L500.4100, L501.9520, L100.0100 ####[facility] [address] [place], [address] GAP 5 Normal 5-15 [facility] Comment on above: Order Comment: Order Date: 10/26/23Order Info: [id number] - CMPOrder Info: [id number] - LIPIDOrder Info: [id number] - TSH Performed By: #### L 500.4050, L500.4100, L501.9520, L100.0100 ####[facility] [address] [place], [address] GFR/1.73 sq M.predicted among non-blacks MDRD (S/P/Bld) [Vol rate/Area] 69 mL/min/{1.73_m2} Normal >60 [facility] Comment on above: Order Comment: Order Date: 10/26/23Order Info: [id number] - CMPOrder Info: [id number] - LIPIDOrder Info: [id number] - TSH Result Comment: Non- GFR Calc Performed By: #### L 500.4050, L500.4100, L501.9520, L100.0100 ####[facility] [address] [place], [address] Globulin (S) [Mass/Vol] 3.4 g/dL Normal 2.2-4.2 [facility] Comment on above: Order Comment: Order Date: 10/26/23Order Info: [id number] - CMPOrder Info: [id number] - LIPIDOrder Info: 3 - TSH Performed By: #### L 500.4050, L500.4100, L501.9520, L100.0100 ####[facility] [address] [place], [address] Glucose [Mass/Vol] 104 mg/dL Normal 74-106 [facility] Comment on above: Order Comment: Order Date: 10/26/23Order Info: [id number]- - CMPOrder Info: [id number] - LIPIDOrder Info: [id number] - TSH Result Comment: Fast ing Glucose result from 100 to 125 mg/dL suggests IMPAIRED HOMEOSTASIS per A.D.A. criteria. Performed By: #### L 500.4050, L500.4100, L501.9520, L100.0100 ####[facility] [address] [place], [address] Potassium [Moles/Vol] 3.7 mmol/L Normal 3.5-5.1 [facility] Comment on above: Order Comment: Order Date: 10/26/23Order Info: [id number] - CMPOrder Info: [id number] - LIPIDOrder Info: [id number] - TSH Performed By: #### L 500.4050, L500.4100, L501.9520, L100.0100 ####[facility] [address] [place], [address] Sodium [Moles/Vol] 139 mmol/L Normal 136-145 [facility] Comment on above: Order Comment: Order Date: 10/26/23Order Info: [id number] - CMPOrder Info: [id number] - LIPIDOrder Info: 3 - TSH Performed By: #### L 500.4050, L500.4100, L501.9520, L100.0100 ####[facility] [address] [place], [address] T PROT 7.0 g/dL Normal 6.4-8.2 [facility] Comment on above: Order Comment: Order Date: 10/26/23Order Info: [id number] - CMPOrder Info: [id number] - LIPIDOrder Info: [id number] - TSH Performed By: #### L 500.4050, L500.4100, L501.9520, L100.0100 ####[facility] [address] [place], [address] Urea nitrogen [Mass/Vol] 14 mg/dL Normal 7-18 [facility] Comment on above: Order Comment: Order Date: 10/26/23Order Info: [id number] - CMPOrder Info: [id number] - LIPIDOrder Info: [id number] - TSH Performed By: #### L 500.4050, L500.4100, L501.9520, L100.0100 ####[facility] [address] [place], [address] Lipid Profileon 10-26-2023 Cholesterol [Mass/Vol] 254 mg/dL High 200 [facility] Comment on above: Order Comment: Order Date: 10/26/23Order Info: [id number] - CMPOrder Info: [id number] - LIPIDOrder Info: [id number] - TSH Result Comment: <200 mg/dL Desirable 200-240 mg/dL Borderline >240 mg/dL High Risk Performed By: #### L 500.4050, L500.4100, L501.9520, L100.0100 ####[facility] [address] [place], [address] Cholesterol in HDL [Mass/Vol] 56 mg/dL Normal [facility] Comment on above: Order Comment: Order Date: 10/26/23Order Info: [id number] - CMPOrder Info: [id number] - LIPIDOrder Info: [id number] - TSH Result Comment: The drugs N-Acetylcysteine and Metamizole may falsely depress this assay. Reference Range HDL <40 mg/dL Low HDL Cholesterol HDL >or= 60 mg/dL High HDL Cholesterol Performed By: #### L 500.4050, L500.4100, L501.9520, L100.0100 ####[facility] [address] [place], [address] Cholesterol in LDL [Mass/Vol] 150 mg/dL High 0-130 [facility] Comment on above: Order Comment: Order Date: 10/26/23Order Info: [id number] - CMPOrder Info: - LIPIDOrder Info: [id number] - TSH Performed By: #### L 500.4050, L500.4100, L501.9520, L100.0100 ####[facility] [address] [place], [address] Cholesterol in VLDL [Mass/Vol] 48 mg/dL High 5-40 [facility] Comment on above: Order Comment: Order Date: 10/26/23Order Info: [id number] - CMPOrder Info: [id number] - LIPIDOrder Info: [id number] - TSH Performed By: #### L 500.4050, L500.4100, L501.9520, L100.0100 ####[facility] [address] [place], [address] Triglyceride [Mass/Vol] 242 mg/dL High [facility] Comment on above: Order Comment: Order Date: 10/26/23Order Info: [id number] - CMPOrder Info: [id number] - LIPIDOrder Info: [id number] - TSH Result Comment: The drugs N-Acetylcysteine and Metamizole may falsely depress this assay. Serum Triglycerides Reference Interval Normal <150 mg/dL Borderline high 150 - 199 mg/dL High 200 - 499 mg/dL Very High > or = 500 mg/dL Performed By: #### L 500.4050, L500.4100, L501.9520, L100.0100 ####[facility] [address] [place], [place], [id number] Thyroid Stim Hormone (TSH)on 10-26-2023 TSH 3.110 uIU/mL Normal 0.358-3.740 [facility] Comment on above: Order Comment: Order Date: 10/26/23Order Info: [id number] - CMPOrder Info: [id number] - LIPIDOrder Info: [id number] - TSH Performed By: #### L 500.4050, L500.4100, L501.9520, L100.0100 ####[facility] [address] [facility] [place], [place], [id number] Absolute lymphocyte countOrd ered By: Tila Bailey on 01-17-2023 Lymphocytes Auto (Unsp spec) [#/Vol] 0.50 10*3/uL 0.83-4.51 [facility] Basophil percentageOrdered B y: Tila Bailey on 01-17-2023 Creatinine [Mass/Vol] 1.0 mg/dL 0.55-1.02 [facility] Basophils/100 WBC (Bld) 0.3 % 0-1 [facility] Bilirubin [Mass/Vol] 0.70 mg/dL 0.20-1.00 [facility] Comment on above: For patients on eltr ombopag therapy, use of Dimension [place] TBIL is not recommended. Chloride [Moles/Vol] 105 mmol/L 98-107 [facility] Cholesterol [Mass/Vol] 264 mg/dL <200 [facility] Comment on above: <200 mg/dL Desirable 200-240 mg/dL Borderline >240 mg/dL High Risk Eosinophils/100 WBC (Bld) 2.5 % 0-5 [facility] Glucose [Mass/Vol] 150 mg/dL 74-106 [facility] Comment on above: Fasting Glucose resu lt greater than or equal to 126 mg/dL suggests DIABETES MELLITUS per A.D.A. criteria. Neutrophils (Bld) [#/Vol] 5.4 10*3/uL 2.0-7.7 [facility] Neutrophils/100 WBC (Bld) 84.7 % 47-70 [facility] Potassium [Moles/Vol] 4.1 mmol/L 3.5-5.1 [facility] Protein [Mass/Vol] 7.9 g/dL 6.4-8.2 [facility] Sodium [Moles/Vol] 139 mmol/L 136-145 [facility] Triglyceride [Mass/Vol] 60 mg/dL <199 [facility] Comment on above: The drugs N-Acetylcy steine and Metamizole may falsely depress this assay.Serum Triglycerides Reference Interval Normal <150 mg/dL Borderline high 150 - 199 mg/dL High 200 - 499 mg/dL Very High > or = 500 mg/dL WBC (Bld) [#/Vol] 6.4 10*3/uL 4.4-11.0 [facility] Blood erythrocytes count (nu mber/volume)Ordered By: Tila Bailey on 01-17-2023 RBC (Bld) [#/Vol] 4.36 10*6/uL 4.2-5.4 [facility] Blood hemoglobin measurement (mass/volume)Ordered By: Tila Bailey on 01-17-2023 Hemoglobin (Bld) [Mass/Vol] 12.7 g/dL 12.0-15.0 [facility] Blood lymphocytes/100 leukoc ytesOrdered By: Tila Bailey on 01-17-2023 Lymphocytes/100 WBC (Bld) 7.9 % 19-41 [facility] Blood manual differential co mment interpretation (narrative result)Ordered By: Tila Bailey on 01-17-2023 Manual differential comment Mehdi (Bld) [Interp] SCANNED [facility] Blood monocytes/100 leukocyt esOrdered By: Tila Bailey on 01-17-2023 Monocytes/100 WBC (Bld) 4.1 % 0-10 [facility] Blood platelet mean volumeOr dered By: Tila Bailey on 01-17-2023 Platelet mean volume (Bld) [Entitic vol] 8.7 fL 6.2-12.0 [facility] Determination of erythrocyte mean corpuscular volume (MCV)Ordered By: Tila Bailey on 01-17-2023 MCV (RBC) [Entitic vol] 89.0 fL 81-99 [facility] Hematocrit Auto (Bld) [Volum e fraction]Ordered By: Tila Bailey on 01-17-2023 Hematocrit (Bld) [Volume fraction] 38.8 % 37-47 [facility] Laboratory - Chemistry and C hemistry - challengeOrdered By: Tila Bailey on 01-17-2023 GFR/1.73 sq M.predicted among non-blacks MDRD (S/P/Bld) [Vol rate/Area] 54.0000 mL/min/{1.73_m2} >60 [facility] ALP [Catalytic activity/Vol] 70 U/L 45-117 [facility] ALT [Catalytic activity/Vol] 27 U/L 13-56 [facility] CO2 [Moles/Vol] 27.0 mmol/L 21.0-32.0 [facility] Globulin (S) [Mass/Vol] 3.9 g/dL 2.2-4.2 [facility] Urea nitrogen/Creatinine [Mass ratio] 18.3 mg/mg 10-20 [facility] Laboratory - Hematology and Cell countsOrdered By: Tila Bailey on 01-17-2023 Erythrocyte distribution width (RBC) [Entitic vol] 39.1 fL 35.1-43.9 [facility] Erythrocyte distribution width (RBC) [Ratio] 12.0 % 11.6-14.6 [facility] Immature granulocytes/100 WBC (Bld) 0.500 % 0.0-0.9 [facility] Comment on above: IG% - Immature Granu locytes (promyelocytes, myelocytes and metamyelocytes) > 1% indicates that a LEFT SHIFT is Present. MCH (RBC) [Entitic mass] 29.1 pg 27.0-32.0 [facility] Nucleated RBC/100 WBC (Bld) [Ratio] 0 % 0-5 [facility] Auto ([facility]BC) [Mass/Vol]Or dered By: Tila Bailey on 01-17-2023 MCHC (RBC) [Mass/Vol] 32.7 g/dL 32-36 [facility] No Panel InformationOrdered By: Tila Bailey on 01-17-2023 Estimated GFR (MDRD) Amer 74 mL/min >60 [facility] Comment on above: GFR Calc Estimated GFR (MDRD) Non-Af Amer 61 mL/min >60 [facility] Comment on above: Non- GFR Calc Thyroid Stimulating Hormone (TSH) 0.86 uIU/mL 0.358-3.74 [facility] Vitamin D 25-Hydroxy 102.0 ng/mL [facility] Comment on above: Vitamin D 25(OH) [...] 01-17-2023 Platelets (Bld) [#/Vol] 207 10*3/uL 150-450 [facility] Serum or plasma albumin jose martin urement (mass/volume)Ordered By: Tila Bailey on 01-17-2023 Albumin [Mass/Vol] 4.0 g/dL 3.2-5.0 [facility] Serum or plasma albumin/glob ulin mass ratioOrdered By: Tila Bailey on 01-17-2023 Albumin/Globulin [Mass ratio] 1.0 {ratio} 0.9-2.4 [facility] Serum or plasma calcium jose martin urement (mass/volume)Ordered By: Tila Bailey on 01-17-2023 Calcium [Mass/Vol] 9.3 mg/dL 8.5-10.1 [facility] Serum or plasma cholesterol in HDL measurement (mass/volume)Ordered By: Tila Bailey on 01-17-2023 Cholesterol in HDL [Mass/Vol] 81 mg/dL >40 [facility] Comment on above: The drugs N-Acetylcy steine and Metamizole may falsely depress this assay. Reference Range HDL <40 mg/dL Low HDL Cholesterol HDL >or= 60 mg/dL High HDL Cholesterol Serum or plasma cholesterol in VLDL measurement (mass/volume)Ordered By: Tila Bailey on 01-17-2023 Cholesterol in VLDL [Mass/Vol] 12 mg/dL 5-40 [facility] Serum or plasma creatinine m easurement (mass/volume)Ordered By: Tila Bailey on 01-17-2023 Creatinine [Mass/Vol] 0.93 mg/dL 0.55-1.02 [facility] Comment on above: The validity of the calculated GFR & GFRAA in patients over 70 years has not been determined. Clinical correlation is essential. Serum or plasma low density lipoprotein (LDL) cholesterol measurement (mass/volume)Ordered By: Tila Bailey on 01-17-2023 Cholesterol in LDL [Mass/Vol] 171 mg/dL 0-130 [facility] Serum or plasma urea nitroge n measurement (mass/volume)Ordered By: Tila Bailey on 01-17-2023 Urea nitrogen [Mass/Vol] 17 mg/dL 7-18 [facility] Thin prep Papanicolaou smear with manual screeningOrdered By: Tila Bailey on 01-17-2023 Thin prep Papanicolaou smear with manual screening 16 U/L 15-37 [facility] Thin prep Papanicolaou smear with manual screening 7 5-15 [facility] Laboratory - Chemistry and C hemistry - challengeOrdered By: Roxanna Lemus on 09-15-2022 Free T4 [Mass/Vol] 1.19 ng/dL 0.76-1.46 [facility] No Panel InformationOrdered By: Roxanna Allan on 09-15-2022 Thyroid Stimulating Hormone (TSH) 2.38 uIU/mL 0.358-3.74 [facility] Absolute lymphocyte countOrd ered By: Vernon Garrett on 07-19-2022 Lymphocytes Auto (Unsp spec) [#/Vol] 1.39 10*3/uL 0.83-4.51 [facility] Basophil percentageOrdered B y: Vernon Garrett on 07-19-2022 Basophils/100 WBC (Bld) 0.6 % 0-1 [facility] Bilirubin [Mass/Vol] 0.50 mg/dL 0.20-1.00 [facility] Comment on above: For patients on eltr ombopag therapy, use of Dim[place] TBIL is not recommended. Chloride [Moles/Vol] 106 mmol/L 98-107 [facility] Eosinophils/100 WBC (Bld) 8.1 % 0-5 [facility] Glucose [Mass/Vol] 119 mg/dL 74-106 [facility] Comment on above: Fasting Glucose resu lt from 100 to 125 mg/dL suggests IMPAIRED HOMEOSTASIS per A.D.A. criteria. LDH [Catalytic activity/Vol] 188 U/L 84-246 [facility] Neutrophils (Bld) [#/Vol] 2.6 10*3/uL 2.0-7.7 [facility] Neutrophils/100 WBC (Bld) 53.9 % 47-70 [facility] Potassium [Moles/Vol] 4.1 mmol/L 3.5-5.1 [facility] Protein [Mass/Vol] 7.5 g/dL 6.4-8.2 [facility] Sodium [Moles/Vol] 139 mmol/L 136-145 [facility] WBC (Bld) [#/Vol] 4.8 10*3/uL 4.4-11.0 [facility] Blood erythrocytes count (nu mber/volume)Ordered By: Vernon Garrett on 07-19-2022 RBC (Bld) [#/Vol] 4.23 10*6/uL 4.2-5.4 [facility] Blood hemoglobin measurement (mass/volume)Ordered By: Vernon Garrett on 07-19-2022 Hemoglobin (Bld) [Mass/Vol] 12.7 g/dL 12.0-15.0 [facility] Blood lymphocytes/100 leukoc ytesOrdered By: Vernon Garrett on 07-19-2022 Lymphocytes/100 WBC (Bld) 28.9 % 19-41 [facility] Blood monocytes/100 leukocyt esOrdered By: Vernon Garrett on 07-19-2022 Monocytes/100 WBC (Bld) 8.3 % 0-10 [facility] Blood platelet mean volumeOr dered By: Vernon Garrett on 07-19-2022 Platelet mean volume (Bld) [Entitic vol] 8.4 fL 6.2-12.0 [facility] Determination of erythrocyte mean corpuscular volume (MCV)Ordered By: Vernon Garrett on 07-19-2022 MCV (RBC) [Entitic vol] 89.6 fL 81-99 [facility] Erythrocyte sedimentation ra teOrdered By: Vernon Garrett on 07-19-2022 ESR (Bld) [Velocity] 12 mm/h 0-30 [facility] Hematocrit Auto (Bld) [Volum e fraction]Ordered By: Vernon Garrett on 07-19-2022 Hematocrit (Bld) [Volume fraction] 37.9 % 37-47 [facility] Hemoglobin in reticulocytes (mass per reticulocyte)Ordered By: Vernon Garrett on 07-19-2022 Hemoglobin (Reticulocytes) [Entitic mass] 32.7 pg 30-35 [facility] Iron measurement (mass/mass) Ordered By: Vernon Garrett on 07-19-2022 Iron (Unsp spec) [Mass/Mass] 55 ug/dL 50-170 [facility] Laboratory - Chemistry and C hemistry - challengeOrdered By: Vernon Garrett on 07-19-2022 ALP [Catalytic activity/Vol] 106 U/L 45-117 [facility] ALT [Catalytic activity/Vol] 30 U/L 13-56 [facility] CO2 [Moles/Vol] 27.0 mmol/L 21.0-32.0 [facility] Cobalamin (Vitamin B12) [Mass/Vol] 428 pg/mL 211-911 [facility] Globulin (S) [Mass/Vol] 3.6 g/dL 2.2-4.2 [facility] Urea nitrogen/Creatinine [Mass ratio] 21.3 mg/mg 10-20 [facility] Laboratory - Hematology and Cell countsOrdered By: Vernon Garrett on 07-19-2022 Erythrocyte distribution width (RBC) [Entitic vol] 41.0 fL 35.1-43.9 [facility] Erythrocyte distribution width (RBC) [Ratio] 12.4 % 11.6-14.6 [facility] Immature granulocytes/100 WBC (Bld) 0.200 % 0.0-0.9 [facility] Comment on above: IG% - Immature Granu locytes (promyelocytes, myelocytes and metamyelocytes) > 1% indicates that a LEFT SHIFT is Present. MCH (RBC) [Entitic mass] 30.0 pg 27.0-32.0 [facility] Nucleated RBC/100 WBC (Bld) [Ratio] 0 % 0-5 [facility] MCHC Auto (RBC) [Mass/Vol]Or dered By: Vernon Garrett on 07-19-2022 MCHC (RBC) [Mass/Vol] 33.5 g/dL 32-36 [facility] No Panel InformationOrdered By: Vernon Garrett on 07-19-2022 Estimated GFR (MDRD) Amer 78 mL/min >60 [facility] Comment on above: GFR Calc Estimated GFR (MDRD) Non-Af Amer 64 mL/min >60 [facility] Comment on above: Non- GFR Calc Immature Reticulocyte Fraction 5.80 % 3.00-15.90 [facility] Reticulocyte Count 1.11 % 0.5-1.5 [facility] Total Iron Binding Capacity 319 ug/dL 250-450 [facility] Platelets bldOrdered By: David Garrett on 07-19-2022 Platelets (Bld) [#/Vol] 182 10*3/uL 150-450 [facility] Serum or plasma C reactive p rotein measurement (mass/volume)Ordered By: Vernon Garrett on 07-19-2022 CRP [Mass/Vol] mg/L 0.0-3.0 [facility] Comment on above: C-Reactive Protein ( CRP) provides useful information for thediagnosis, therapy and monitoring of inflammatory processesand associated diseases. For the evaluation of Relative Riskfor Cardiovascular Disease, a High Sensitivity CRP (HSCRP)should be ordered. Serum or plasma albumin jose martin urement (mass/volume)Ordered By: Vernon Hola on 07-19-2022 Albumin [Mass/Vol] 3.9 g/dL 3.2-5.0 [facility] Serum or plasma albumin/glob ulin mass ratioOrdered By: Vernon Simental on 07-19-2022 Albumin/Globulin [Mass ratio] 1.1 {ratio} 0.9-2.4 [facility] Serum or plasma calcium jose martin urement (mass/volume)Ordered By: Vernon Simental on 07-19-2022 Calcium [Mass/Vol] 9.1 mg/dL 8.5-10.1 [facility] Serum or plasma creatinine m easurement (mass/volume)Ordered By: Vernon [facility] on 07-19-2022 Creatinine [Mass/Vol] 0.89 mg/dL 0.55-1.02 [facility] Comment on above: The validity of the calculated GFR & GFRAA in patients over 70 years has not been determined. Clinical correlation is essential. Serum or plasma ferritin manuela surement (mass/volume)Ordered By: Vernon Simental on 07-19-2022 Ferritin [Mass/Vol] 55 ng/mL 8-252 [facility] Serum or plasma folate measu rement (mass/volume)Ordered By: Vernon Simental on 07-19-2022 Folate [Mass/Vol] 49.60 ng/mL 3.1-55.4 [facility] Serum or plasma iron saturat ion measurement (mass fraction)Ordered By: Vernon [facility] on 07-19-2022 Iron saturation [Mass fraction] 17.2 % 15.0-55.0 [facility] Serum or plasma urea nitroge n measurement (mass/volume)Ordered By: Vernon Garrett on 07-19-2022 Urea nitrogen [Mass/Vol] 19 mg/dL 7-18 [facility] Thin prep Papanicolaou smear with manual screeningOrdered By: Vernon Garrett on 07-19-2022 Thin prep Papanicolaou smear with manual screening 20 U/L 15-37 [facility] Thin prep Papanicolaou smear with manual screening 6 5-15 [facility] Absolute lymphocyte countOrd ered By: Roxanna Lemus on 07-05-2022 Lymphocytes Auto (Unsp spec) [#/Vol] 1.06 10*3/uL 0.83-4.51 [facility] Basophil percentageOrdered B y: Roxanna Lemus on 07-05-2022 Basophils/100 WBC (Bld) 0.7 % 0-1 [facility] Eosinophils/100 WBC (Bld) 9.7 % 0-5 [facility] Neutrophils (Bld) [#/Vol] 1.2 10*3/uL 2.0-7.7 [facility] Neutrophils/100 WBC (Bld) 41.5 % 47-70 [facility] WBC (Bld) [#/Vol] 2.8 10*3/uL 4.4-11.0 [facility] Blood erythrocytes count (nu mber/volume)Ordered By: Roxanna Lemus on 07-05-2022 RBC (Bld) [#/Vol] 4.23 10*6/uL 4.2-5.4 [facility] Blood hemoglobin measurement (mass/volume)Ordered By: Roxanna Lemus on 07-05-2022 Hemoglobin (Bld) [Mass/Vol] 12.6 g/dL 12.0-15.0 [facility] Blood lymphocytes/100 leukoc ytesOrdered By: Roxanna Lemus on 07-05-2022 Lymphocytes/100 WBC (Bld) 38.0 % 19-41 [facility] Blood monocytes/100 leukocyt esOrdered By: Roxanna Lemus on 07-05-2022 Monocytes/100 WBC (Bld) 9.7 % 0-10 [facility] Blood platelet mean volumeOr dered By: Roxanna Lemus on 07-05-2022 Platelet mean volume (Bld) [Entitic vol] 8.9 fL 6.2-12.0 [facility] Determination of erythrocyte mean corpuscular volume (MCV)Ordered By: Roxanna Lemus on 07-05-2022 MCV (RBC) [Entitic vol] 90.5 fL 81-99 [facility] Hematocrit Auto (Bld) [Volum e fraction]Ordered By: Roxanna Lemus on 07-05-2022 Hematocrit (Bld) [Volume fraction] 38.3 % 37-47 [facility] Laboratory - Hematology and Cell countsOrdered By: Roxanna Lemus on 07-05-2022 Erythrocyte distribution width (RBC) [Entitic vol] 41.6 fL 35.1-43.9 [facility] Erythrocyte distribution width (RBC) [Ratio] 12.6 % 11.6-14.6 [facility] Immature granulocytes/100 WBC (Bld) 0.400 % 0.0-0.9 [facility] Comment on above: IG% - Immature Granu locytes (promyelocytes, myelocytes and metamyelocytes) > 1% indicates that a LEFT SHIFT is Present. MCH (RBC) [Entitic mass] 29.8 pg 27.0-32.0 [facility] Nucleated RBC/100 WBC (Bld) [Ratio] 0 % 0-5 [facility] MCHC Auto (RBC) [Mass/Vol]Or dered By: Roxanna Lemus on 07-05-2022 MCHC (RBC) [Mass/Vol] 32.9 g/dL 32-36 [facility] No Panel InformationOrdered By: Sandra Sheppard on 07-05-2022 Thyroid Stimulating Hormone (TSH) 4.94 uIU/mL 0.358-3.74 [facility] Platelets bldOrdered By: Abhijit Lemus on 07-05-2022 Platelets (Bld) [#/Vol] 198 10*3/uL 150-450 [facility] Absolute lymphocyte countOrd ered By: Roxanna Lemus on 06-07-2022 Lymphocytes Auto (Unsp spec) [#/Vol] 1.09 10*3/uL 0.83-4.51 [facility] Basophil percentageOrdered B y: Roxanna Lemus on 06-07-2022 Basophils/100 WBC (Bld) 1.1 % 0-1 [facility] Bilirubin [Mass/Vol] 1.10 mg/dL 0.20-1.00 [facility] Comment on above: For patients on eltr ombopag therapy, use of Dimension [place] TBIL is not recommended. Chloride [Moles/Vol] 107 mmol/L 98-107 [facility] Cholesterol [Mass/Vol] 252 mg/dL <200 [facility] Comment on above: <200 mg/dL Desirable 200-240 mg/dL Borderline >240 mg/dL High Risk Eosinophils/100 WBC (Bld) 10.7 % 0-5 [facility] Glucose [Mass/Vol] 94 mg/dL 74-106 [facility] Neutrophils (Bld) [#/Vol] 1.1 10*3/uL 2.0-7.7 [facility] Neutrophils/100 WBC (Bld) 39.6 % 47-70 [facility] Potassium [Moles/Vol] 3.9 mmol/L 3.5-5.1 [facility] Protein [Mass/Vol] 7.4 g/dL 6.4-8.2 [facility] Sodium [Moles/Vol] 139 mmol/L 136-145 [facility] Triglyceride [Mass/Vol] 94 mg/dL <199 [facility] Comment on above: The drugs N-Acetylcy steine and Metamizole may falsely depress this assay.Serum Triglycerides Reference Interval Normal <150 mg/dL Borderline high 150 - 199 mg/dL High 200 - 499 mg/dL Very High > or = 500 mg/dL WBC (Bld) [#/Vol] 2.7 10*3/uL 4.4-11.0 [facility] Blood erythrocytes count (nu mber/volume)Ordered By: Roxanna Lemus on 06-07-2022 RBC (Bld) [#/Vol] 4.13 10*6/uL 4.2-5.4 [facility] Blood hemoglobin measurement (mass/volume)Ordered By: Roxanna Lemus on 06-07-2022 Hemoglobin (Bld) [Mass/Vol] 12.1 g/dL 12.0-15.0 [facility] Blood lymphocytes/100 leukoc ytesOrdered By: Roxanna Lemus on 06-07-2022 Lymphocytes/100 WBC (Bld) 40.1 % 19-41 [facility] Blood monocytes/100 leukocyt esOrdered By: Roxanna Lemus on 06-07-2022 Monocytes/100 WBC (Bld) 8.1 % 0-10 [facility] Blood platelet mean volumeOr dered By: Roxanna Lemus on 06-07-2022 Platelet mean volume (Bld) [Entitic vol] 8.8 fL 6.2-12.0 [facility] Determination of erythrocyte mean corpuscular volume (MCV)Ordered By: Roxanna Lemus on 06-07-2022 MCV (RBC) [Entitic vol] 88.6 fL 81-99 [facility] Hematocrit Auto (Bld) [Volum e fraction]Ordered By: Roxanna Lemus on 06-07-2022 Hematocrit (Bld) [Volume fraction] 36.6 % 37-47 [facility] Laboratory - Chemistry and C hemistry - challengeOrdered By: Roxanna Lemus on 06-07-2022 ALP [Catalytic activity/Vol] 84 U/L 45-117 [facility] ALT [Catalytic activity/Vol] 26 U/L 13-56 [facility] CO2 [Moles/Vol] 27.0 mmol/L 21.0-32.0 [facility] Globulin (S) [Mass/Vol] 3.6 g/dL 2.2-4.2 [facility] Urea nitrogen/Creatinine [Mass ratio] 19.4 mg/mg 10-20 [facility] Laboratory - Hematology and Cell countsOrdered By: Roxanna Lemus on 06-07-2022 Erythrocyte distribution width (RBC) [Entitic vol] 41.2 fL 35.1-43.9 [facility] Erythrocyte distribution width (RBC) [Ratio] 12.8 % 11.6-14.6 [facility] Immature granulocytes/100 WBC (Bld) 0.400 % 0.0-0.9 [facility] Comment on above: IG% - Immature Granu locytes (promyelocytes, myelocytes and metamyelocytes) > 1% indicates that a LEFT SHIFT is Present. MCH (RBC) [Entitic mass] 29.3 pg 27.0-32.0 [facility] Nucleated RBC/100 WBC (Bld) [Ratio] 0 % 0-5 [facility] MCHC Auto (RBC) [Mass/Vol]Or dered By: Roxanna Lemus on 06-07-2022 MCHC (RBC) [Mass/Vol] 33.1 g/dL 32-36 [facility] No Panel InformationOrdered By: Roxanna Lemus on 06-07-2022 Estimated GFR (MDRD) Amer 79 mL/min >60 [facility] Comment on above: GFR Calc Estimated GFR (MDRD) Non-Af Amer 65 mL/min >60 [facility] Comment on above: Non- GFR Calc Thyroid Stimulating Hormone (TSH) 32.30 uIU/mL 0.358-3.74 [facility] Platelets bldOrdered By: Abhijit Lemus on 06-07-2022 Platelets (Bld) [#/Vol] 188 10*3/uL 150-450 [facility] Serum or plasma albumin jose martin urement (mass/volume)Ordered By: Roxanna Lemus on 06-07-2022 Albumin [Mass/Vol] 3.8 g/dL 3.2-5.0 [facility] Serum or plasma albumin/glob ulin mass ratioOrdered By: Roxanna Lemus on 06-07-2022 Albumin/Globulin [Mass ratio] 1.1 {ratio} 0.9-2.4 [facility] Serum or plasma calcium jose martin urement (mass/volume)Ordered By: Roxanna Lemus on 06-07-2022 Calcium [Mass/Vol] 8.9 mg/dL 8.5-10.1 [facility] Serum or plasma cholesterol in HDL measurement (mass/volume)Ordered By: Roxanna Lemus on 06-07-2022 Cholesterol in HDL [Mass/Vol] 66 mg/dL >40 [facility] Comment on above: The drugs N-Acetylcy steine and Metamizole may falsely depress this assay. Reference Range HDL <40 mg/dL Low HDL Cholesterol HDL >or= 60 mg/dL High HDL Cholesterol Serum or plasma cholesterol in VLDL measurement (mass/volume)Ordered By: Roxanna Lemus on 06-07-2022 Cholesterol in VLDL [Mass/Vol] 19 mg/dL 5-40 [facility] Serum or plasma creatinine m easurement (mass/volume)Ordered By: Roxanna Lemus on 06-07-2022 Creatinine [Mass/Vol] 0.88 mg/dL 0.55-1.02 [facility] Comment on above: The validity of the calculated GFR & GFRAA in patients over 70 years has not been determined. Clinical correlation is essential. Serum or plasma low density lipoprotein (LDL) cholesterol measurement (mass/volume)Ordered By: Roxanna Lemus on 06-07-2022 Cholesterol in LDL [Mass/Vol] 167 mg/dL 0-130 [facility] Serum or plasma urea nitroge n measurement (mass/volume)Ordered By: Roxanna Lemus on 06-07-2022 Urea nitrogen [Mass/Vol] 17 mg/dL 7-18 [facility] Thin prep Papanicolaou smear with manual screeningOrdered By: Roxanna Lemus on 06-07-2022 Thin prep Papanicolaou smear with manual screening 19 U/L 15-37 [facility] Thin prep Papanicolaou smear with manual screening 5 5-15 [facility] Thin prep Papanicolaou smear with manual screening 21.3 mg/L NO RANGE EST. [facility] Vital Signs Date Time Vital Sign Value Performing Clinician Facility 10-05-2024 14:26-0400 Body temperature 99.39 [degF] David Rocha MD Work Phone: [facility] 10-05-2024 14:26-0400 Body weight 72.2 kg David Rocha MD Work Phone: [facility] 10-05-2024 14:26-0400 Diastolic blood pressure 78 mm[Hg] David Rocha MD Work Phone: [facility] 10-05-2024 14:26-0400 Heart rate 85 /min David Rocha MD Work Phone: [facility] 10-05-2024 14:26-0400 Respiratory rate 18 /min David Rocha MD Work Phone: [facility] 10-05-2024 14:26-0400 SaO2% (BldA) [Mass fraction] 98 % David Rocha MD Work Phone: [facility] 10-05-2024 14:26-0400 Systolic blood pressure 122 mm[Hg] David Rocha MD Work Phone: [facility] 07-25-2022 13:15-0400 Body height 165.1 cm DO Roxanna Lemus Work Phone: [facility] 07-25-2022 13:14-0400 Body mass index (BMI) [Ratio] 26.8 kg/m2 DO Roxanna Allan Work Phone: [facility] 07-25-2022 13:14-0400 Body temperature 97.9 [degF] DO Roxanna Allan Work Phone: [facility] 07-25-2022 13:14-0400 Body weight 73.17 kg DO Roxanna Allan Work Phone: [facility] 07-25-2022 13:14-0400 Diastolic blood pressure 68 mm[Hg] DO Roxanna Allan Work Phone: [facility] 07-25-2022 13:14-0400 Heart rate 96 /min DO Roxanna Allan Work Phone: [facility] 07-25-2022 13:14-0400 Respiratory rate 16 /min DO Roxanna Allan Work Phone: [facility] 07-25-2022 13:14-0400 SaO2% (BldA) [Mass fraction] 96 % DO Roxanna Allan Work Phone: [facility] 07-25-2022 13:14-0400 Systolic blood pressure 112 mm[Hg] DO Roxanna Allan Work Phone: [facility] 07-19-2022 14:30-0400 Body mass index (BMI) [Ratio] 26.6 kg/m2 DO Roxanna Allan Work Phone: [facility] 07-19-2022 14:30-0400 Body temperature 97.1 [degF] DO Roxanna Allan Work Phone: [facility] 07-19-2022 14:30-0400 Body weight 72.77 kg DO Roxanna Allan Work Phone: [facility] 07-19-2022 14:30-0400 Diastolic blood pressure 73 mm[Hg] DO Roxanna Allan Work Phone: [facility] 07-19-2022 14:30-0400 Heart rate 96 /min DO Roxanna Allan Work Phone: [facility] 07-19-2022 14:30-0400 Respiratory rate 16 /min DO Roxanna Lemus Work Phone: [facility] 07-19-2022 14:30-0400 SaO2% (BldA) [Mass fraction] 97 % DO Roxanna Lemus Work Phone: [facility] 07-19-2022 14:30-0400 Systolic blood pressure 118 mm[Hg] DO Roxannafelice Lemus Work Phone: [facility] Encounters Encounter Date Encounter Type Care Provider Facility Start: 10-11-2024 ambulatory Chalon Rosaline [facility] Start: 10-06-2024 End: 10-06-2024 Emergency department patient visit Chalon Rosaline Facility:[facility] Start: 10-05-2024 End: 10-05-2024 ambulatory DAVID ROCHA Facility:[facility] Start: 10-05-2024 End: 10-05-2024 Patient encounter procedure David Rocha MD Work Phone: [facility] Comment on above: Influenza-like illne ss (Primary Dx); Nausea Start: 10-04-2024 ambulatory Chalon Rosaline Facility:[facility] Start: 07-30-2024 End: 07-30-2024 ambulatory Chalon Rosaline Facility:[facility] Start: 06-20-2024 End: 06-20-2024 ambulatory Chalon Rosaline Facility:[facility] Start: 05-31-2024 End: 05-31-2024 ambulatory Chalon Rosaline Facility:[facility] Start: 05-31-2024 End: 05-31-2024 ambulatory Chalon Rosaline Facility:[facility] Start: 05-30-2024 End: 05-30-2024 ambulatory Chalon Rosaline Facility:[facility] Start: 05-17-2024 ambulatory Chalon Rosaline Facility:[facility] Start: 04-22-2024 End: 04-22-2024 ambulatory Chalon Rosaline Facility:[facility] Start: 04-16-2024 ambulatory Willie Friend Facility :[facility] Start: 04-16-2024 End: 04-16-2024 ambulatory Chalon Rosaline Facility:[facility] Start: 02-16-2024 End: 02-16-2024 ambulatory Chalon Rosaline Facility:[facility] Start: 02-16-2024 End: 02-16-2024 ambulatory Chalon Rosaline Facility:[facility] Start: 12-19-2023 ambulatory Chalon Rosaline [facility] Start: 12-19-2023 End: 12-19-2023 ambulatory Chalon Rosaline Facility:[facility] Start: 11-27-2023 End: 11-27-2023 ambulatory Chalon Rosaline Facility:[facility] Start: 10-27-2023 End: 10-27-2023 ambulatory Balaji Avitia Facility:[facility] Start: 10-26-2023 End: 10-26-2023 ambulatory Chalon Rosaline Facility:[facility] Start: 01-17-2023 End: 01-17-2023 ambulatory [facility] Work Phone: Start: 01-17-2023 End: 01-17-2023 Patient encounter procedure [facility] Work Phone: Start: 09-15-2022 End: 09-15-2022 ambulatory DO Roxanna Lemus Work Phone: [facility] Work Phone: Start: 09-15-2022 End: 09-15-2022 Patient encounter procedure DO Roxanna Lemus Work Phone: [facility] Work Phone: Start: 07-25-2022 End: 07-25-2022 Patient encounter procedure DO Roxanna Lemus Work Phone: [facility] Work Phone: Start: 07-19-2022 Registered Recurring DO Mavis Lemus Work Phone: [facility] Start: 07-19-2022 End: 07-19-2022 Patient encounter procedure DO Roxanna Lemus Work Phone: [facility] Work Phone: Start: 07-14-2022 Non-patient / Non-visit DO Abhijit Lemus Work Phone: [facility] Start: 07-05-2022 End: 07-05-2022 ambulatory [facility] Work Phone: Start: 07-05-2022 End: 07-05-2022 Patient encounter procedure [facility] Start: 06-21-2022 End: 06-21-2022 ambulatory [facility] Work Phone: Start: 06-21-2022 End: 06-21-2022 Patient encounter procedure [facility]-Outpatient Bone Densitometry Start: 06-07-2022 End: 06-07-2022 [facility] Start: 06-29-2021 End: 06-29-2021 [facility] Procedures Date Procedure Procedure Detail Performing Clinician Start: 01-17-2023 Computed tomography of abdomen and pelvis with contrast Start: 06-21-2022 Dual energy X-ray absorptiometry Start: 06-29-2021 Radiography of ankle Plan of Treatment Date Care Activity Detail Author Start: 11-27-2024 Urine microalbumin profile DTaP,Tdap,Td Vaccine (2 - Td or Tdap) [facility] Start: 11-04-2024 Influenza vaccination Influenza Vacc ine (#1) [facility] Start: 03-06-2024 Advance Directive Discussion Advance Directive Discussion [facility] Start: 02-09-2022 Shingrix Vaccine (2 of 2) Salguero grix Vaccine (2 of 2) [facility] Start: 07-28-2003 Screening for osteoporosis Bone Density Screening [facility] Start: 07-28-1983 Diabetes Screening Diabetes Screenin g [facility] Start: 1956 Anxiety Screening Anxiety Screening [facility] Start: 1958 Depression Screening Depression Scre ening [facility] CBC W Auto Different ial panel - Blood [facility] Ferritin [Mass/volum e] in Serum or Plasma [facility] Folate [Mass/volume] in Serum or Plasma [facility] Iron and Iron bindin g capacity panel - Serum or Plasma [facility] Lactate dehydrogenas e measurement [facility] Vitamin B12 measurement [facility] Immunizations Immunization Date Immunization Notes Care Provider Marilia stephenson 11-28-2023 influenza virus vaccine, unspecified formulation David Rocha MD Work Phone: [facility] 05-08-2020 Covid (Moderna) [facility] 04-10-2020 Covid (Moderna) [facility] 11-05-2015 Influenza virus vaccine [facility] Payers Date Payer Category Payer Private Health Insurance [facility] Member Subscriber Plan / Payer (Effective 2024-Present) Name: Alison Santacruz Relation to Subscriber: Self Name: Alison Santacruz Payer ID: [id number] (NAIC) Group ID: Not on file Type: Karyn Address: [facility] [address] [place] [id number] 2023 Self-pay [id number] 2023 Unknown [id number] 2003 Medicare [id number] Unknown [id number] .[id number] Unknown [id number] .462 Unknown [id number] .462 Unknown [id number] [id number] .462 Unknown [id number] 2.16.840.1.279569.3.579.2 .462 Unknown [id number] 2.16.840.1.935282.3.579.2 .462 Unknown [id number] 2.16.840.1.723739.3.579.2 .462 Unknown [id number] 2.16.840.1.119122.3.579.2 .462 Unknown [id number] 2.16.840.1.366208.3.579.2 .462 Unknown [id number] 2.16.840.1.040639.3.579.2 .462 Unknown [id number] 2.16.840.1.888212.3.579.2 .462 Unknown [id number] 2.16.840.1.806028.3.579.2 .462 Unknown [id number] 2.16.840.1.349132.3.579.2 .462 Unknown [id number] 2.16.840.1.056596.3.579.2 .462 Unknown [id number] 2.16.840.1.454988.3.579.2 .462 Unknown [id number] 2.16.840.1.539258.3.579.2 .462 Unknown [id number] 2.16.840.1.678049.3.579.2 .462 Unknown [id number] 2.16.840.1.033287.3.579.2 .462 Unknown [id number] [id number] .462 Social History Date Type Detail Facility Start: 07-04-2016 End: 07-19-2022 Tobacco smoking status MIIS Unknown if ever smoked [facility] Start: 1940 Sex Assigned At Female [facility] Start: 1940 Sex assigned at [facility] Gender identity Not on file [facility] in Progress note 10-05-2024 Note Date & Type Note Facility 10-05-2024 Note HNO ID: [id number] Author: DAVID ROCHA MD Service: ? Author Type: Physician Type: Progress Notes Filed: 10/05/2024 14:54 Note Text: [facility] Santacruz is a 84 year old female. [...] Objective BP 122/78 Pulse 85 Temp 37.4 ?C (99.4 ?F) (Tympanic) Resp 18 Wt 72.2 kg (159 [...] likely for the following reason(s): suggested by HANDP - COVID is less likely for the following reason(s): Negative home COVID tests - Influenza is less likely for the following reason(s): Not currently circulating in the community - Acute abdomen is less likely for the following reason(s): Benign exam Procedures [facility] History of Present illness Narrative 10-05-2024 David Rocha MD - 10/05/2024 2:47 PM EDT Note Date & Type Note Facility 10-05-2024 History of Presen t illness Narrative [facility] Subjective Alison Santacruz is a 84 year old female. [...] Benign exam Procedures documented in this encounter [facility] Clinical Note 04-16-2024 Note Date & Type Note Facility 04-16-2024 Note [facility] Medical Records Department [address] [place] [address] History Physical Exam 04/16/24 1511 MR#: [id number] Acct: [id number] Name: ALISON SANTACRUZ Rep #: [id number] : 1940 83 From: Willie Friend DO PCP: Dr. Eddie Waggoner MD [facility] Location: AC AC10-1 HPI - General General Date of Admission: [...] stop this. She feels weak and fatigued. [facility] Medical History Arthritis Gastric reflux Wears hearing [...] DAILY 07/14/22 12/15/23 Hi story glucosamine 750 dx-wizajhijenh-lcm 1 tab PO DAILY 07/14/22 04/15/24 History [...] Verified 04/16/24 13:29 paroxetine (From Paxil) AdvReac [place] poorly Verified 04/16/24 13:29 rosuvastatin (From Crestor) [...] rectal bleeding, tenes (more content not included)... [facility] Clinical Note 12-19-2023 Note Date & Type Note Facility 12-19-2023 Note [facility] Medical Records Department [address] [place] [address] History Physical Exam 12/19/23 1425 MR#: [id number] Acct: [id number] Name: ALISON SANTACRUZ Rep #: [id number] : 1940 83 From: Willie Friend DO PCP: Dr. Eddie Waggoner MD [facility] Location: [place] [address] History and Physical Date of Admission: 12/19/23 OV 11.27.23 Pt reports that she is here to discuss possible hemorrhoid banding. Pt states that she has a terrible time going to the bathroom and does not want to continues having to take as many laxatives and stool softeners as she is. States that her last colonoscopy was 7-8 years ago. [facility] Medical History Abnormal EKG Varicose veins of [...] to the office today for establishment with [facility]. Pt has a PMHx of valvular heart [...] Appearance: average body habitus and well nourished [facility] Head: normal to inspection Ears: hearing [...] female here today for a establishment with I. She has been having constipation for a long time with small hard stools. She feels that it may be related to internal hemorrhoids. She had a colonoscopy 10+ years ago and was told she had some pretty severe hemorrhoids but had no tx of these. We will get a colonoscopy with possible banding if indicated. I recommended she sta (more content not included)... [facility] Evaluation note Note Date & Type Note Facility Evaluation note No assessment information availa ble [facility] Work Phone: Evaluation note Note Date & Type Note Facility Evaluation note Diagnosis Onset Date Leukopenia resolved Leukopenia resolved [facility] Work Phone: Evaluation note Note Date & Type Note Facility Evaluation note Diagnosis Influenza-like illness- Primary Influenza with other respiratory manifestations Nausea Nausea alone documented in this encounter [facility] Chief Complaint and Reason for Visit Chief Complaint RIGHT ANKLE Chief Complaint OSTEO Chief Complaint OSTEO Amb Documentation NEW PT - LEUKOPENIA lab 1WK REVIEW LABS E ORDER Reason for Visit Leukopenia Leukopenia Chief Complaint RLQ ABD PAIN/ ADD LA BWORK FOR @[facility] Advance Directives No Advanced Directives Records Found Advance Directive Response Recorded Date/ Time Living Will Yes July 20, 2016 1 0:50am Power of 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 Rancher Yes July 20, 2016 10:50am Advance Directive Response Recorded Date/ Time Living Will Yes July 20, 2016 9 :50am Power of Horse Rancher Yes July 20, 2016 9:50am Family History No Family History Records Found Relationship Condition Age at Onset Recorded Date/T [...] Alf Joseph MD Family Provider Active Roxanna M Allan , DO Primary Care Provider Active Team Status: Inactive Member Role Status Dates Roxanna Lemus , DO Primary Care Provi oscar, Attending Provider, Referring Provider Active Team Status: Inactive Member Role Status Dates Roxanna Lemus , DO Primary Care Provider, Attending Provider Active Team Status: Inactive Member Role Status Dates Roxanna Lemus , DO Primary Care Provider, Referring Provider Active Dr. Vernon Garrett MD Attending Provider Active Team Status: Active Member Role Status Dates Roxanna Lemus , DO Primary Care Provider Active Radha Ascencio Attending Provider Active Team Status: Active Member Role Status Dates Roxanna Curtisnger , DO Primary Care Provider Active Dr. Vernon Garrett MD Attending Provider, Referring Pro vider Active Team Status: Inactive Member Role Status Dates Roxanna Lemus , DO Primary Care Provider Active Dr. Tila Bailey MD Attending Provider, Referring P rovider Active Eddie Waggoner MD Other Provider Active Source Comments (unrecognize d section and content) In the event this informatio n is protected by the Federal Confidentiality of Alcohol and Drug Abuse Patient Records regulations: The Federal rules restrict any use of the information to criminally investigate or prosecute any alcohol or drug abuse patient.[facility] Reason for Visit (unrecogniz ed section and content) Reason Comments Flu Like Symptoms X 3 days-diarrhea, s tomach hurts, nausea, hot and feels dizzy INFORMATION SOURCE (unrecogn ized section and content) DATE CREATED AUTHOR 10/07/2024 [facility] DATE CREATED AUTHOR AUTHOR'S ORGANIZ ATION 10/07/2024 [facility] FOR RECORDS PERTAINING TO PATIENTS WHO ARE [...] BE BASED ON THE PRIMARY CLINICAL RECORDS. [facility]. provides no warranty or guarantee of the accuracy or completeness of information in this document.
--- OUTSIDE RECORDS SUMMARY | 2024-10-11 12:31 | XMS RPT_ITS | CCD ---
Author Organization [facility] Care Team Providers Care Canoe Inspector Name Role Phone DO Roxanna Lemus Primary Care Provider [phone] Radha Ascencio Attending Provider UnavailDO Roxanna Holguin Referring Provider [phone] Dr. Vernon Garrett Attending Provider Unavailable Primary Care Provider UnavailDAVID Griffin Attending [...] Primary Care Unavailable Chris Phillips Attending UnavailBalaji Fisher Referring Unavailable Balaji Avitia Attending Unavailable Rosaline, [...] Triiodobenzoic Acids Allergy to substance 06-30-19 Rash [facility] (2 sources) atorvastatin Drug Allergy 07-26-19 Upset Stomach [facility] (2 sources) PARoxetine Drug Allergy 07-26-19 Florence poorly [facility] (2 sources) rosuvastatin Drug Allergy 07-26-19 Upset Stomach [facility] (2 sources) Simvastatin Drug Allergy 07-26-19 Upset Stomach [facility] (2 sources) HMG-CoA reductase inhibitor; Translations: [FPNJPLE-SBH-BDX REDUCTASE INHIBITORS] Drug Intolerance 10-06-19 Intolerance [facility] (1 source) atorvastatin Drug Allergy 10-07-19 [facility] (1 source) buPROPion Drug Allergy 10-07-19 [facility] (1 source) PARoxetine Drug Allergy 10-07-19 [facility] (1 source) rosuvastatin Drug Allergy 10-07-19 [facility] (1 source) Sertraline Drug Allergy 10-07-19 [facility] (1 source) Simvastatin Drug Allergy 10-07-19 [facility] (1 source) Iodinated Contrast Media Drug allergy (disorder) 10-07-19 [facility] Medications Current Medications Medication Drug Class(es) [...] MG PO DAILY July 13, 2022 11:00pm Xrvcvbmi-Qifh-Hre2-C- Liset-Bosw (Osteo Bi-Flex Triple Strength) 1 EACH tablet (5 sources) Start: 07-04-2016 take 1 tablet by mouth once daily Tyqmclgd-Cawi-Ocv9-C- Liset-Bosw (Osteo Bi-Flex Triple Strength) 1 EACH tablet Active 2 EACH PO DAILY July 04, 2016 10:20am Start: 07-04-2016 End: 07-14-2022 take 1 tablet by mouth once daily Odqvzdma-Rssp-Gur4-C-Liset-Bosw (Osteo Bi -Flex Triple Strength) 1 EACH tablet Discontinued 2 EACH PO DAILY July 03, 2016 11:00pm July 14, 2022 7:42am Start: 07-04-2016 End: 07-14-2022 take 1 tablet by mouth once daily Aqzojgdy-Owzs-Nbt1-C-Liset-Bosw (Osteo Bi -Flex Triple Strength) 1 EACH tablet Discontinued 2 EACH PO DAILY July 04, 2016 12:00am July 14, 2022 8:42am Start: 07-04-2016 take 1 tablet by edna th once daily Qbwtsigb-Qdqs-Dvr9-C-Liset-Bosw (Osteo Bi -Flex Triple Strength) 1 EACH tablet Active 2 EACH PO DAILY July 04, 2016 12:00am Omuxiihh-Okyr-Apn8-C-Liset-Osmany sw (Osteo Bi-Flex Triple Strength) 750 mg-644 mg- 30 mg-1 mg tablet (2 sources) Start: 07-14-2022 take 1 tablet by mouth once daily Fcwqdkdq-Hrmc-Ifw0-C-Liset-Bosw (Osteo Bi-Flex Triple Strength) 750 mg-644 mg- 30 mg-1 mg tablet Active 1 TABLET PO DAILY July 14, 2022 7:40am Start: 07-14-2022 take 1 tablet by edna th once daily Yrqnldcc-Qgsm-Qcv5-C-Liset-Bosw (Osteo Bi -Flex Triple Strength) 750 mg-644 [...] 11:00pm Start: 07-14-2022 [facility] Multivitamin Active 1 TABLET PO DAILY July 14, 2022 12:00am [place] 5-Njk-Yrt-Fish Oil (Fish Oil) 60-90-500 mg capsule (2 sources) Start: 07-14-2022 take 1 capsule by mouth once daily [place] 4-Jaz-Tdm-Fish Oil (Fish Oil) 60-90-500 mg capsule Active 1 CAP PO DAILY July 13, 2022 11:00pm Start: 07-14-2022 take 1 capsule by mo [facility] once daily [place] 9-Bfb-Apq-Fish Oil (Fish Oil) 60-90-500 mg capsule Active [...] 7:42am docusate sodium 50 mg / sennosides, shelter 8.6 mg oral tablet (10 sources) Start: [...] Yon 10-06-2024 Abdomen/Pelvis W IV Cont ONLY [facility] Imaging Services [address] [place] [address] [id number] Abdomen/Pelvis W IV Cont ONLY MR#: [id number] Acct: [id number] Name: ALISON SANTACRUZ Rep #: [id number] : 1940 F 84 From: Milo Holloway DO PCP: Dr. Eddie Waggoner MD Status: REG ER Study: Abdomen/Pelvis W IV Cont ONLY Date of Exam: Exam# [id number] Ordering Dr: Chris Phillips DO PROCEDURE: ABDOMEN/PELVIS [...] detected. Other findings as above. Reading Location: [facility] CC: Dr. Chris Phillips DO; Dr. Eddie Waggoner MD Clinical Product Specialist: Signed Normal [facility] CBC W/Diff, Automatedon Absolute Lymph 1.12 X10 3/uL Normal 0.83-4.51 [facility] Comment on above: Performed By: #### L 100.0100, L501.2450, L500.4050 #### [facility] Laboratory [address] [place], [address] Absolute Neut 2.7 X10 3/uL Normal 2.0-7.7 [facility] Comment on above: Performed By: #### L 100.0100, L501.2450, L500.4050 #### [facility] [address] [place], [address] Basophils/100 WBC (Bld) 0.7 % Normal 0-1 [facility] Comment on above: Performed By: #### L 100.0100, L501.2450, L500.4050 #### [facility] [address] [place], [address] Eosinophils/100 WBC (Bld) 3.5 % Normal 0-5 [facility] Comment on above: Performed By: #### L 100.0100, L501.2450, L500.4050 #### [facility] [address] [place], [address] Erythrocyte distribution width (RBC) [Ratio] 11.9 % Normal 11.6-14.6 [facility] Comment on above: Performed By: #### L 100.0100, L501.2450, L500.4050 #### [facility] [address] [place], [address] Hematocrit (Bld) [Volume fraction] 34.6 % Low 37-47 [facility] Comment on above: Performed By: #### L 100.0100, L501.2450, L500.4050 #### [facility] [address] [place], [address] Hemoglobin (Bld) [Mass/Vol] 12.0 g/dL Normal 12.0-15.0 [facility] Comment on above: Performed By: #### L 100.0100, L501.2450, L500.4050 #### [facility] [address] [place], [address] IG% 0.500 Normal 0.0-0.9 [facility] Comment on above: Result Comment: IG% - Immature Granulocytes (promyelocytes, myelocytes and metamyelocytes) > 1% indicates that a LEFT SHIFT is Present. Performed By: #### L 100.0100, L501.2450, L500.4050 #### [facility] [address] [place], [address] Lymphocytes/100 WBC (Bld) 26.3 % Normal 19-41 [facility] Comment on above: Performed By: #### L 100.0100, L501.2450, L500.4050 #### [facility] [address] [place], [address] MCH (RBC) [Entitic mass] 30.9 pg Normal 27.0-32.0 [facility] Comment on above: Performed By: #### L 100.0100, L501.2450, L500.4050 #### [facility] [address] [place], [address] MCHC (RBC) [Mass/Vol] 34.7 g/dL Normal 32-36 [facility] Comment on above: Performed By: #### L 100.0100, L501.2450, L500.4050 #### [facility] [address] [place], [address] MCV (RBC) [Entitic vol] 89.2 fL Normal 81-99 [facility] Comment on above: Performed By: #### L 100.0100, L501.2450, L500.4050 #### [facility] [address] [place], [address] Monocytes/100 WBC (Bld) 6.3 % Normal 0-10 [facility] Comment on above: Performed By: #### L 100.0100, L501.2450, L500.4050 #### [facility] [address] [place], [address] Neutrophils/100 WBC (Bld) 62.7 % Normal 47-70 [facility] Comment on above: Performed By: #### L 100.0100, L501.2450, L500.4050 #### [facility] [address] [place], [address] Nucleated RBC (Bld) [#/Vol] 0 10*3/uL Normal 0-5 [facility] Comment on above: Performed By: #### L 100.0100, L501.2450, L500.4050 #### [facility] [address] [place], [address] Platelet mean volume (Bld) [Entitic vol] 8.3 fL Normal 6.2-12.0 [facility] Comment on above: Performed By: #### L 100.0100, L501.2450, L500.4050 #### [facility] [address] [place], [address] Platelets (Bld) [#/Vol] 170 10*3/uL Normal 150-450 [facility] Comment on above: Performed By: #### L 100.0100, L501.2450, L500.4050 #### [facility] [address] [place], [address] RBC (Bld) [#/Vol] 3.88 10*6/uL Low 4.2-5.4 [facility] Comment on above: Performed By: #### L 100.0100, L501.2450, L500.4050 #### [facility] [address] [place], [address] RDW SD 38.3 fl Normal 35.1-43.9 [facility] Comment on above: Performed By: #### L 100.0100, L501.2450, L500.4050 #### [facility] [address] [place], [address] WBC (Bld) [#/Vol] 4.3 10*3/uL Low 4.4-11.0 [facility] Comment on above: Performed By: #### L 100.0100, L501.2450, L500.4050 #### [facility] [address] [place], [address] Comprehensive Metabolic Prof ilon 10-06-2024 Albumin [Mass/Vol] 4.4 g/dL Normal 3.4-4.8 [facility] Comment on above: Performed By: #### L 100.0100, L501.2450, L500.4050 #### [facility] [address] [place], [address] Albumin/Globulin [Mass ratio] 1.9 {ratio} Normal 0.9-2.4 [facility] Comment on above: Performed By: #### L 100.0100, L501.2450, L500.4050 #### [facility] [address] [place], [address] ALK PHOS 73 U/L Normal 35-104 [facility] Comment on above: Performed By: #### L 100.0100, L501.2450, L500.4050 #### [facility] [address] [place], [address] ALT [Catalytic activity/Vol] 16 U/L Normal <=34 [facility] Comment on above: Performed By: #### L 100.0100, L501.2450, L500.4050 #### [facility] [address] [place], [address] AST [Catalytic activity/Vol] 18 U/L Normal <=31 [facility] Comment on above: Performed By: #### L 100.0100, L501.2450, L500.4050 #### [facility] [address] [place], [address] Bilirubin [Mass/Vol] 0.77 mg/dL Normal 0.00-1.30 [facility] Comment on above: Performed By: #### L 100.0100, L501.2450, L500.4050 #### [facility] [address] [place], [address] BUN/CRE 15.2 RATIO Normal 10-20 [facility] Comment on above: Performed By: #### L 100.0100, L501.2450, L500.4050 #### [facility] [address] [place], [address] Calcium [Mass/Vol] 9.1 mg/dL Normal 7.6-11.0 [facility] Comment on above: Performed By: #### L 100.0100, L501.2450, L500.4050 #### [facility] [address] [place], [address] Chloride [Moles/Vol] 100 mmol/L Normal 98-108 [facility] Comment on above: Performed By: #### L 100.0100, L501.2450, L500.4050 #### [facility] [address] [place], [address] CO2 [Moles/Vol] 25.6 mmol/L Normal 21.0-32.0 [facility] Comment on above: Performed By: #### L 100.0100, L501.2450, L500.4050 #### [facility] [address] [place], [address] Creatinine [Mass/Vol] 0.83 mg/dL Normal 0.70-1.20 [facility] Comment on above: Performed By: #### L 100.0100, L501.2450, L500.4050 #### [facility] [address] [place], [address] ECRCL 49.58 ml/min Low 50-250 [facility] Comment on above: Performed By: #### L 100.0100, L501.2450, L500.4050 #### [facility] [address] [place], [address] GAP 11 Normal 5-15 [facility] Comment on above: Performed By: #### L 100.0100, L501.2450, L500.4050 #### [facility] [address] [place], [address] GFR/1.73 sq M.predicted among non-blacks MDRD (S/P/Bld) [Vol rate/Area] 69 mL/min/{1.73_m2} Normal >60 [facility] Comment on above: Result Comment: mL/m in/1.73m2 CKD-EPI Creatinine Equation (2020) Performed By: #### L 100.0100, L501.2450, L500.4050 #### [facility] [address] [place], [address] Globulin (S) [Mass/Vol] 2.4 g/dL Normal 2.2-4.2 [facility] Comment on above: Performed By: #### L 100.0100, L501.2450, L500.4050 #### [facility] [address] [place], [address] Glucose [Mass/Vol] 121 mg/dL High 70-99 [facility] Comment on above: Performed By: #### L 100.0100, L501.2450, L500.4050 #### [facility] [address] [place], [address] Potassium [Moles/Vol] 4.0 mmol/L Normal 3.3-5.1 [facility] Comment on above: Performed By: #### L 100.0100, L501.2450, L500.4050 #### [facility] [address] [place], [address] Sodium [Moles/Vol] 137 mmol/L Normal 133-145 [facility] Comment on above: Performed By: #### L 100.0100, L501.2450, L500.4050 #### [facility] [address] [place], [address] T PROT 6.8 g/dL Normal 5.9-8.4 [facility] Comment on above: Performed By: #### L 100.0100, L501.2450, L500.4050 #### [facility] [address] [place], [address] Urea nitrogen [Mass/Vol] 13 mg/dL Normal 4-19 [facility] Comment on above: Performed By: #### L 100.0100, L501.2450, L500.4050 #### [facility] [address] [place], [address] Emergency Department Summary on 10-06-2024 Emergency Department Summary [facility] Medical Records Department [address] [place] [address] Emergency Department Summary 10/06/24 MR#: [id number] Acct: [id number] Name: ALISON SANTACRUZ Rep #: [id number] : 1940 84 From: Chris Phillips DO PCP: Dr. Eddie Waggoner MD Status:[facility] ER Location: ED ADDENDUM by Dr. [...] intact Psych: Cooperative, appropriate mood and affect [facility] Medical History Arthritis Gastric reflux Wears hearing [...] DAILY 07/14/22 12/15/23 Hi story glucosamine 750 pq-rhwifcsrrhe-mqu 1 tab PO DAILY 07/14/22 04/15/24 History [...] AdvReac Fel (more content not included)... Normal [facility] Lipaseon 10-06-2024 Lipase [Catalytic activity/Vol] 23 U/L Normal 13-75 [facility] Comment on above: Result Comment: Yuko joseph note: LIPASE revised reference range effective 22. New Lipase methodology. Expected to produce lower values than the previous assay method. NEW Reference Range: 13 - 75 U/L Performed By: #### L 100.0100, L501.2450, L500.4050 #### [facility] [address] [place], [address] Stool Occult Blood iFOBon STOB Positive Normal [facility] Comment on above: Performed By: #### P H.PYLORI #### [facility] [address] [place], [address] Urinalysis, Completeon 10-06 BACTERIA 0 SEEN Normal None Seen [facility] Comment on above: Order Comment: ONESIMO ELLISOR TO SPECIFY Performed By: #### P H.PYLORI #### [facility] [address] [place], [address] EPI,SQUAMOUS 0 SEEN Normal 5-10 [facility] Comment on above: Order Comment: ONESIMO CTOR TO SPECIFY Performed By: #### P H.PYLORI #### [facility] [address] [place], [address] Mucus Ql (Urine sed) 0 SEEN Normal [facility] Comment on above: Order Comment: ONESIMO CTOR TO SPECIFY Performed By: #### P H.PYLORI #### [facility] [address] [place], [address] RBC 0 SEEN Normal 0-5 [facility] Comment on above: Order Comment: ONESIMO CTOR TO SPECIFY Performed By: #### P H.PYLORI #### [facility] [address] [place], [address] WBC 0 SEEN Normal 0-5 [facility] Comment on above: Order Comment: ONESIMO CTOR TO SPECIFY Performed By: #### P H.PYLORI #### [facility] [address] [place], [address] CNOVon 10-05-2024 CNOV Office Visit ([facility]) -------- ALISON SANTACRUZ ([id number]) 1940 F Date Time Provider Department 10/05/24 [...] As of Date: 10/05/2024 Noted Allergy Reaction UYKDQWA-ATX-DEK REDUCTASE INHIBIT*10/05/2024 5 - Intolerance Date Reviewed: [...] Status:Closed by DAVID ROCHA on 10/05/24 Normal [facility] Shoulder min 2 Viewson 07-30 Shoulder min 2 Views [facility] Imaging Services [address] [place] [address] Shoulder min 2 Views MR#: [id number] Acct: [id number] Name: ALISON SANTACRUZ Rep #: [id number] : 1940 F 84 From: Zbigniew Martinez MD PCP: Dr. Eddie Waggoner MD Status: REG CLI Study: Shoulder min 2 Views Date of Exam: 07/30/24 Exam# [id number] Ordering Dr: Eddie Waggoner MD PROCEDURE: SHOULDER MIN 2 VIEWS 07/30/2024 REASON FOR EXAM: SHOULDER PAIN X 1 MONTH, NO INJURY TECHNIQUE: Four views right shoulder COMPARISON: None available FINDINGS: No fracture or dislocation. Mild glenohumeral joint osteoarthrosis. Zdva-ju-xpplvnvp acromioclavicular joint osteoarthrosis with a downward directed osteophyte at the distal clavicle suggested. Visualized right lung appears clear. RAD/Shoulder min 2 Views IMPRESSION: Osteoarthrosis as above. Reading Location: [facility] CC: Dr. Eddie Waggoner MD Clinical Product Specialist: Signed Normal [facility] Abdomen/Pelvis WITH Contrast on 06-20-2024 Abdomen/Pelvis WITH Contrast [facility] Imaging Services [address] [place] [address] Abdomen/Pelvis WITH Contrast MR#: [id number] Acct: [id number] Name: ALISON SANTACRUZ Rep #: [id number] : 1940 F 83 From: Celia lance MD PCP: Dr. Eddie Waggoner MD Status: REG CLI Study: Abdomen/Pelvis WITH Contrast Date of Exam: Exam# [id number] Ordering Dr: Rajwinder Luis PROCEDURE: ABDOMEN/PELVIS WITH [...] cystitis. 12. Moderate diffuse spondylosis. Reading Location: [place] [address] CC: Dr. Eddie Waggoner MD; LIZZETTE Edwards Clinical Product Specialist: Signed Normal [facility] CBC W/Diff, Automatedon 03-2 Absolute Lymph 0.99 X10 3/uL Normal 0.83-4.51 [facility] Comment on above: Performed By: #### L 501.2450, L100.0100, L500.4050 ####[facility] [address] [place], [address] Absolute Neut 1.6 X10 3/uL Low 2.0-7.7 [facility] Comment on above: Performed By: #### L 501.2450, L100.0100, L500.4050 ####[facility] [address] [place], [address] Basophils/100 WBC (Bld) 1.6 % High 0-1 [facility] Comment on above: Performed By: #### L 501.2450, L100.0100, L500.4050 ####[facility] [address] [place], [address] Eosinophils/100 WBC (Bld) 7.2 % High 0-5 [facility] Comment on above: Performed By: #### L 501.2450, L100.0100, L500.4050 ####[facility] [address] [place], [address] Erythrocyte distribution width (RBC) [Ratio] 12.0 % Normal 11.6-14.6 [facility] Comment on above: Performed By: #### L 501.2450, L100.0100, L500.4050 ####[facility] [address] [place], [address] Hematocrit (Bld) [Volume fraction] 37.2 % Normal 37-47 [facility] Comment on above: Performed By: #### L 501.2450, L100.0100, L500.4050 ####[facility] [address] [place], [address] Hemoglobin (Bld) [Mass/Vol] 12.9 g/dL Normal 12.0-15.0 [facility] Comment on above: Performed By: #### L 501.2450, L100.0100, L500.4050 ####[facility] [address] [place], [address] IG% 0.600 Normal 0.0-0.9 [facility] Comment on above: Result Comment: IG% - Immature Granulocytes (promyelocytes, myelocytes and metamyelocytes) > 1% indicates that a LEFT SHIFT is Present. Performed By: #### L 501.2450, L100.0100, L500.4050 ####[facility] [address] [place], [address] Lymphocytes/100 WBC (Bld) 31.1 % Normal 19-41 [facility] Comment on above: Performed By: #### L 501.2450, L100.0100, L500.4050 ####[facility] [address] [place], [address] MCH (RBC) [Entitic mass] 30.6 pg Normal 27.0-32.0 [facility] Comment on above: Performed By: #### L 501.2450, L100.0100, L500.4050 ####[facility] [address] [place], [address] MCHC (RBC) [Mass/Vol] 34.7 g/dL Normal 32-36 [facility] Comment on above: Performed By: #### L 501.2450, L100.0100, L500.4050 ####[facility] [address] [place], [address] MCV (RBC) [Entitic vol] 88.4 fL Normal 81-99 [facility] Comment on above: Performed By: #### L 501.2450, L100.0100, L500.4050 ####[facility] [address] [place], [address] Monocytes/100 WBC (Bld) 10.1 % High 0-10 [facility] Comment on above: Performed By: #### L 501.2450, L100.0100, L500.4050 ####[facility] [address] [place], [address] Neutrophils/100 WBC (Bld) 49.4 % Normal 47-70 [facility] Comment on above: Performed By: #### L 501.2450, L100.0100, L500.4050 ####[facility] [address] [place], [address] Nucleated RBC (Bld) [#/Vol] 0 10*3/uL Normal 0-5 [facility] Comment on above: Performed By: #### L 501.2450, L100.0100, L500.4050 ####[facility] [address] [place], [address] Platelet mean volume (Bld) [Entitic vol] 8.7 fL Normal 6.2-12.0 [facility] Comment on above: Performed By: #### L 501.2450, L100.0100, L500.4050 ####[facility] [facility] [address] [place], [address] Platelets (Bld) [#/Vol] 178 10*3/uL Normal 150-450 [facility] Comment on above: Performed By: #### L 501.2450, L100.0100, L500.4050 ####[facility] [address] [place], [address] RBC (Bld) [#/Vol] 4.21 10*6/uL Normal 4.2-5.4 [facility] Comment on above: Performed By: #### L 501.2450, L100.0100, L500.4050 ####[facility] [address] [place], [address] RDW SD 38.6 fl Normal 35.1-43.9 [facility] Comment on above: Performed By: #### L 501.2450, L100.0100, L500.4050 ####[facility] [address] [place], [address] WBC (Bld) [#/Vol] 3.2 10*3/uL Low 4.4-11.0 [facility] Comment on above: Performed By: #### L 501.2450, L100.0100, L500.4050 ####[facility] [address] [place], [address] Comprehensive Metabolic Prof ilon 05-31-2024 Albumin [Mass/Vol] 4.6 g/dL Normal 3.4-4.8 [facility] Comment on above: Performed By: #### L 501.2450, L100.0100, L500.4050 ####[facility] [address] [place], [address] Albumin/Globulin [Mass ratio] 2.0 {ratio} Normal 0.9-2.4 [facility] Comment on above: Performed By: #### L 501.2450, L100.0100, L500.4050 ####[facility] [address] [place], [address] ALK PHOS 70 U/L Normal 35-104 [facility] Comment on above: Performed By: #### L 501.2450, L100.0100, L500.4050 ####[facility] [address] [place], [address] ALT [Catalytic activity/Vol] 15 U/L Normal <=34 [facility] Comment on above: Performed By: #### L 501.2450, L100.0100, L500.4050 ####[facility] [address] [place], [address] AST [Catalytic activity/Vol] 21 U/L Normal <=31 [facility] Comment on above: Performed By: #### L 501.2450, L100.0100, L500.4050 ####[facility] [address] [place], [address] Bilirubin [Mass/Vol] 0.94 mg/dL Normal 0.00-1.30 [facility] Comment on above: Performed By: #### L 501.2450, L100.0100, L500.4050 ####[facility] [address] [place], [address] BUN/CRE 16.8 RATIO Normal 10-20 [facility] Comment on above: Performed By: #### L 501.2450, L100.0100, L500.4050 ####[facility] [address] [place], [address] Calcium [Mass/Vol] 9.5 mg/dL Normal 7.6-11.0 [facility] Comment on above: Performed By: #### L 501.2450, L100.0100, L500.4050 ####[facility] [address] [place], [address] Chloride [Moles/Vol] 103 mmol/L Normal 98-108 [facility] Comment on above: Performed By: #### L 501.2450, L100.0100, L500.4050 ####[facility] [address] [place], [address] CO2 [Moles/Vol] 22.3 mmol/L Normal 21.0-32.0 [facility] Comment on above: Performed By: #### L 501.2450, L100.0100, L500.4050 ####[facility] [address] [place], [address] GAP 15 Normal 5-15 [facility] Comment on above: Performed By: #### L 501.2450, L100.0100, L500.4050 ####[facility] [address] [place], [address] GFR/1.73 sq M.predicted among non-blacks MDRD (S/P/Bld) [Vol rate/Area] 67 mL/min/{1.73_m2} Normal >60 [facility] Comment on above: Result Comment: mL/m in/1.73m2 CKD-EPI Creatinine Equation (2020) Performed By: #### L 501.2450, L100.0100, L500.4050 ####[facility] [address] [place], [address] Globulin (S) [Mass/Vol] 2.3 g/dL Normal 2.2-4.2 [facility] Comment on above: Performed By: #### L 501.2450, L100.0100, L500.4050 ####[facility] [address] [place], [address] Potassium [Moles/Vol] 4.1 mmol/L Normal 3.3-5.1 [facility] Comment on above: Performed By: #### L 501.2450, L100.0100, L500.4050 ####[facility] [address] [place], [address] Sodium [Moles/Vol] 140 mmol/L Normal 133-145 [facility] Comment on above: Performed By: #### L 501.2450, L100.0100, L500.4050 ####[facility] [address] [place], [address] T PROT 6.9 g/dL Normal 5.9-8.4 [facility] Comment on above: Performed By: #### L 501.2450, L100.0100, L500.4050 ####[facility] [address] [place], [address] Creatinine [Mass/Vol] 0.85 mg/dL Normal 0.70-1.20 [facility] Comment on above: Performed By: #### L 501.2450, L100.0100, L500.4050 ####[facility] [address] [place], [address] Glucose [Mass/Vol] 97 mg/dL Normal 70-99 [facility] Comment on above: Performed By: #### L 501.2450, L100.0100, L500.4050 ####[facility] [address] [place], [address] Urea nitrogen [Mass/Vol] 14 mg/dL Normal 4-19 [facility] Comment on above: Performed By: #### L 501.2450, L100.0100, L500.4050 ####[facility] [address] [place], [address] Gastroenterology Visit Repor ton 05-31-2024 Gastroenterology Visit Report [facility] Gastroenterology [address] [place] [address] OFFICE VISIT Date of Service: 05/31/24 MR#: [id number] Acct: [id number] Name: ALISON SANTACRUZ Rep #: [id number] : 1940 Provider: LIZZETTE Edwards Age/Sex: 83/F [place] [facility] Status: Signed Intake Vital Signs 04/16/24 13:36 Height 5 ft 6 in Intake Visit Reasons: Ongoing issues Chief Complaint: abdominal pain Allergies Iodinated Contrast Media Allergy (Verified 04/16/24 13:29) Rash atorvastatin (From Lipitor) Adverse Reaction (Verified 04/16/24 13:29) Upset Stomach bupropion (From Wellbutrin) Adverse Reaction (Verified 04/16/24 13:29) Other paroxetine (From Paxil) Adverse Reaction (Verified 04/16/24 13:29) Florence poorly rosuvastatin (From Crestor) Adverse Reaction (Verified [...] gallbladder. Continues taking pantoprazole and dicyclomine daily. [facility] Medical History Arthritis Gastric reflux Wears hearing [...] for itchy (more content not included)... Normal [facility] Lipaseon 05-31-2024 Lipase [Catalytic activity/Vol] 26 U/L Normal 13-75 [facility] Comment on above: Result Comment: Yuko joseph note: LIPASE revised reference range effective 22. New Lipase methodology. Expected to produce lower values than the previous assay method. NEW Reference Range: 13 - 75 U/L Performed By: #### L 501.2450, L100.0100, L500.4050 ####[facility] [address] [place], [address] Stool Occult Blood iFOBon STOB Negative Normal [facility] Comment on above: Performed By: #### M 100.7900 #### [facility] [address] [facility] [place], [address] Abd Inc Decub and/or Erecton 05-30-2024 Abd Inc Decub and/or Erect [facility] Imaging Services [address] [place], [place] [address] Abd Inc Decub and/or Erect MR#: [id number] Acct: [id number] Name: ALISON SANTACRUZ Rep #: [id number] : 1940 F 83 From: Karel Mortensen MD PCP: Dr. Eddie Waggoner MD Status: REG CLI Study: Abd Inc Decub and/or Erect Date of Exam: 05/30 Exam# [id number] Ordering Dr: Eddie Waggoner MD EXAM: XR [...] the colon consistent with constipation. Reading Location: [facility] CC: Dr. Eddie Waggoner MD Clinical Product Specialist: Signed Normal [facility] Thyroid Stim Hormone (TSH)on 04-22-2024 TSH 2.120 uIU/mL Normal 0.358-3.740 [facility] Comment on above: Performed By: #### L 501.9520 #### [facility] [address] [facility] [place], [place], [address] EGD Reporton 04-16-2024 EGD Report [facility] Medical Records Department [address] [place] [address] EGD Report MR#: [id number] Acct: [id number] Name: ALISON SANATCRUZ Rep #: [id number] : 1940 83 From: Willie Shook DO PCP: Dr. Eddie Waggoner MD Status:REG [facility] Patient Name: Alison Santacruz Procedure Date: 04/16/2024 [...] pathology results. Procedure Code(s): --- Professional --- 99629, Esophagogastroduodenosco py, flexible, transoral; with biopsy, single or multiple CPT copyright 2021 [employer]. All rights reserved. The codes documented in this report are preliminary and upon clinical coder review may be revised to meet current compliance requirements. Willie Shook DO 04/16/2024 3:20:24 PM This report has been signed electronically. Number of Addenda: 0 Note Initiated On: 04/16/2024 2:52 PM 04/16/24 1520 Date Willie Shook DO Cosigner Signature: Date (if indicated) CC: Dr. Eddie Waggoner MD; Willie Shook DO Date Dictated: 04/16/24 8385 Date Transcribed: Clinical Product Specialist: ES Signed Normal [facility] H Pylori (initial)on 025 H Pylori (initial) ---- Patient Age/Sex Location Account Attending Physician ALISON SANTACRUZ 83/F EN [id number] Willie Shook DO Specimen: [id number] Received: 04/17/24 Status: AKIRA Nogueraradha Num: [id number] Spec Type: IMMUNO Subm Dr: Willie Shook DO PHYSICIAN INSTITUTION [place] [address] SPECIMEN INFORMATION: Tissue Source: B- Gastric cardia biopsy, C- Distal esophagus biopsy Clinical Info: Heartburn, GERD Specimen Number: [id number] B,C CPT code: 02169u7,21961 METHODOLOGY: Deparaffinized sections of prefer/formalin-fixed tissue or [...] developed and their performance characteristics determined by [facility]. They may not have been cleared [...] Dr. Alejandro Rashid MD 04/19/24 1151 Normal [facility] Comment on above: Performed By: #### P H.PYLORI #### [facility] [address] [facility] [place], [place], [address] MR/POSTOP.Prisca 04-16-2024 MR/POSTOP.[facility] Medical Records Department [address] [place] [address] Anesthesia Postop Eval I 04/16/241517 MR#: [id number] Acct: [id number] Name: ALISON SANTACRUZ Rep #: [id number] : 1940 83 From: Jim Middleton PCP: Dr. Eddie Waggoner MD Status:REG [facility] Y Race: C Location: [place] [address] Anesthesia: Postop Eval I Current Vital Signs [...] Jim Gregg Signature: Date CC: Signed Normal [facility] MR/KKLOCWLS2md 04-16-2024 MR/POSTOPAN2 [facility] Medical Records Department [address] [place] [address] Anesthesia Postop Eval II 04/16/241830 MR#: [id number] Acct: [id number] Name: ALISON SANTACRUZ Rep #: [id number] : 1940 83 From: Oliver Kapoor MD PCP: Dr. Eddie Waggoner MD Status:DEP [facility] Y Race: C Location: EN Anesthesia Postop [...] MD Cosigner Signature: Date CC: Signed Normal [facility] Special Stain Group Ion 04-06 Special Stain Group I ------ Patient Age/Sex Location Account Attending Physician ALISON SANTACRUZ 83/F [place] [id number] Willie Shook DO Specimen: [id number] Received: 04/17/24 Status: AKIRA Kelly Num: [id number] Spec Type: EGD BIOPSY Jana Dr: Willie [...] for Helicobacter pylori will be reported separately ([id number]). C. Alcian blue/PAS stain with matched control is used in the evaluation of the specimen. Immunohistochemistry ([id number]) for P53 and Ki-67 will be performed, [...] Account Attending Physician ALISON SANTACRUZ 83/F EN [id number] Willieonur Shook DO tissue that in aggregate [...] totally submitted in one cassette. 04/17/2024 TC:3 [facility]:[id number] Patient Age/Sex Location Account Attending Physician ALISON SANTACRUZ 83/F [place] [id number] Willie Shook DO Signed (signature on file) Dr. Alejandro Rashid MD 04/19/24 0934 Normal [facility] Comment on above: Performed By: #### P H.PYLORI #### [facility] Laboratory [address] [place], [place], [address] MR/PATGary 04-15-2024 /PAT.[facility] Medical Records Department [address] [place] [address] PAT - Anesthesia 04/15/24 1032 MR#: [id number] Acct: [id number] Name: ALISON SANTACRUZ Rep #: [id number] : 1940 83 From: Casey Staley MD PCP: Dr. 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 journalist Hx Respiratory Tract Infection No 04/11/24 15:16 STOP Sleep Apnea STOP Sleep Apnea - travel journalist: STOP Sleep Apnea - travel journalist Hx Hypertension Yes: CONTROLLED ON MEDS 04/11/24 [...] 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 Use History - travel journalist: Tobacco Use History - travel journalist Tobacco Use Smoking Status Never smoker 04/11/24 15:16 Hx Tobacco Use No 04/11/24 15:16 Years Smoking Packs Smoked per Day Smoking Cessation Date was within the last 15 years Hx Smoking Cessation Date Hx Smoking Cessation Counseling Hematologic Medial History Hematologic 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 Normal [facility] CBC W/Diff, Automatedon 12- Absolute Lymph 1.41 X10 3/uL Normal 0.83-4.51 [facility] Comment on above: Performed By: #### L 100.0100, L500.4050, L501.2450 #### [facility] [address] [place], [address] Absolute Neut 2.6 X10 3/uL Normal 2.0-7.7 [facility] Comment on above: Performed By: #### L 100.0100, L500.4050, L501.2450 #### [facility] [address] [place], [address] Basophils/100 WBC (Bld) 1.0 % Normal 0-1 [facility] Comment on above: Performed By: #### L 100.0100, L500.4050, L501.2450 #### [facility] [address] [place], [address] Eosinophils/100 WBC (Bld) 4.4 % Normal 0-5 [facility] Comment on above: Performed By: #### L 100.0100, L500.4050, L501.2450 #### [facility] [address] [place], [address] Erythrocyte distribution width (RBC) [Ratio] 11.9 % Normal 11.6-14.6 [facility] Comment on above: Performed By: #### L 100.0100, L500.4050, L501.2450 #### [facility] [address] [place], [address] Hematocrit (Bld) [Volume fraction] 38.2 % Normal 37-47 [facility] Comment on above: Performed By: #### L 100.0100, L500.4050, L501.2450 #### [facility] [address] [place], [address] Hemoglobin (Bld) [Mass/Vol] 12.9 g/dL Normal 12.0-15.0 [facility] Comment on above: Performed By: #### L 100.0100, L500.4050, L501.2450 #### [facility] [address] [place], [address] IG% 1.000 High 0.0-0.9 [facility] Comment on above: Result Comment: IG% - Immature Granulocytes (promyelocytes, myelocytes and metamyelocytes) > 1% indicates that a LEFT SHIFT is Present. Performed By: #### L 100.0100, L500.4050, L501.2450 #### [facility] [address] [place], [address] Lymphocytes/100 WBC (Bld) 29.5 % Normal 19-41 [facility] Comment on above: Performed By: #### L 100.0100, L500.4050, L501.2450 #### [facility] [address] [place], [address] MCH (RBC) [Entitic mass] 30.1 pg Normal 27.0-32.0 [facility] Comment on above: Performed By: #### L 100.0100, L500.4050, L501.2450 #### [facility] [address] [place], [address] MCHC (RBC) [Mass/Vol] 33.8 g/dL Normal 32-36 [facility] Comment on above: Performed By: #### L 100.0100, L500.4050, L501.2450 #### [facility] [address] [place], [address] MCV (RBC) [Entitic vol] 89.0 fL Normal 81-99 [facility] Comment on above: Performed By: #### L 100.0100, L500.4050, L501.2450 #### [facility] [address] [place], [address] Monocytes/100 WBC (Bld) 8.8 % Normal 0-10 [facility] Comment on above: Performed By: #### L 100.0100, L500.4050, L501.2450 #### [facility] [address] [place], [address] Neutrophils/100 WBC (Bld) 55.3 % Normal 47-70 [facility] Comment on above: Performed By: #### L 100.0100, L500.4050, L501.2450 #### [facility] [address] [place], [address] Nucleated RBC (Bld) [#/Vol] 0 10*3/uL Normal 0-5 [facility] Comment on above: Performed By: #### L 100.0100, L500.4050, L501.2450 #### [facility] [address] [place], [address] Platelet mean volume (Bld) [Entitic vol] 8.6 fL Normal 6.2-12.0 [facility] Comment on above: Performed By: #### L 100.0100, L500.4050, L501.2450 #### [facility] [address] [place], [address] Platelets (Bld) [#/Vol] 193 10*3/uL Normal 150-450 [facility] Comment on above: Performed By: #### L 100.0100, L500.4050, L501.2450 #### [facility] [address] [place], [address] RBC (Bld) [#/Vol] 4.29 10*6/uL Normal 4.2-5.4 [facility] Comment on above: Performed By: #### L 100.0100, L500.4050, L501.2450 #### [facility] [address] [place], [address] RDW SD 38.3 fl Normal 35.1-43.9 [facility] Comment on above: Performed By: #### L 100.0100, L500.4050, L501.2450 #### [facility] [address] [place], [address] WBC (Bld) [#/Vol] 4.8 10*3/uL Normal 4.4-11.0 [facility] Comment on above: Performed By: #### L 100.0100, L500.4050, L501.2450 #### [facility] [address] [place], [address] Comprehensive Metabolic Prof [facility] 02-16-2024 Albumin [Mass/Vol] 3.9 g/dL Normal 3.2-5.0 [facility] Comment on above: Performed By: #### L 100.0100, L500.4050, L501.2450 #### [facility] [address] [place], [address] Albumin/Globulin [Mass ratio] 1.3 {ratio} Normal 0.9-2.4 [facility] Comment on above: Performed By: #### L 100.0100, L500.4050, L501.2450 #### [facility] [address] [place], [address] ALK P 63 U/L Normal 45-117 [facility] Comment on above: Performed By: #### L 100.0100, L500.4050, L501.2450 #### [facility] [address] [place], [address] ALT [Catalytic activity/Vol] 23 U/L Normal 13-56 [facility] Comment on above: Performed By: #### L 100.0100, L500.4050, L501.2450 #### [facility] [address] [place], [address] AST [Catalytic activity/Vol] 12 U/L Low 15-37 [facility] Comment on above: Performed By: #### L 100.0100, L500.4050, L501.2450 #### [facility] [address] [place], [address] Bilirubin [Mass/Vol] 1.00 mg/dL Normal 0.20-1.00 [facility] Comment on above: Result Comment: For patients on eltrombopag therapy, use of Dimension [place] TBIL is not recommended. Performed By: #### L 100.0100, L500.4050, L501.2450 #### [facility] [address] [place], [address] BUN/CRE 16.3 RATIO Normal 10-20 [facility] Comment on above: Performed By: #### L 100.0100, L500.4050, L501.2450 #### [facility] [address] [place], [address] CA,Total 9.4 mg/dL Normal 8.5-10.1 [facility] Comment on above: Performed By: #### L 100.0100, L500.4050, L501.2450 #### [facility] [address] [place], [address] Chloride [Moles/Vol] 103 mmol/L Normal 98-107 [facility] Comment on above: Performed By: #### L 100.0100, L500.4050, L501.2450 #### [facility] [address] [place], [address] CO2 [Moles/Vol] 30.0 mmol/L Normal 21.0-32.0 [facility] Comment on above: Performed By: #### L 100.0100, L500.4050, L501.2450 #### [facility] [address] [place], [address] Creatinine [Mass/Vol] 0.86 mg/dL Normal 0.55-1.02 [facility] Comment on above: Result Comment: The validity of the calculated GFR GFRAA in patients over 70 years has not been determined. Clinical correlation is essential. Performed By: #### L 100.0100, L500.4050, L501.2450 #### [facility] [address] [place], [address] EST GFR - AA 81 mL/min Normal >60 [facility] Comment on above: Result Comment: Afri can [place] GFR Calc Performed By: #### L 100.0100, L500.4050, L501.2450 #### [facility] [address] [place], [address] GAP 4 Low 5-15 [facility] Comment on above: Performed By: #### L 100.0100, L500.4050, L501.2450 #### [facility] [address] [place], [address] GFR/1.73 sq M.predicted among non-blacks MDRD (S/P/Bld) [Vol rate/Area] 67 mL/min/{1.73_m2} Normal >60 [facility] Comment on above: Result Comment: Non- GFR Calc Performed By: #### L 100.0100, L500.4050, L501.2450 #### [facility] [facility] [address] [place], [address] Globulin (S) [Mass/Vol] 2.9 g/dL Normal 2.2-4.2 [facility] Comment on above: Performed By: #### L 100.0100, L500.4050, L501.2450 #### [facility] Laboratory [address] [place], [address] Glucose [Mass/Vol] 94 mg/dL Normal 74-106 [facility] Comment on above: Performed By: #### L 100.0100, L500.4050, L501.2450 #### [facility] Laboratory [address] [place], [address] Potassium [Moles/Vol] 4.4 mmol/L Normal 3.5-5.1 [facility] Comment on above: Performed By: #### L 100.0100, L500.4050, L501.2450 #### [facility] Laboratory [address] [place], [address] Sodium [Moles/Vol] 137 mmol/L Normal 136-145 [facility] Comment on above: Performed By: #### L 100.0100, L500.4050, L501.2450 #### [facility] [address] [place], [address] T PROT 6.8 g/dL Normal 6.4-8.2 [facility] Comment on above: Performed By: #### L 100.0100, L500.4050, L501.2450 #### [facility] [address] [place], [address] Urea nitrogen [Mass/Vol] 14 mg/dL Normal 7-18 [facility] Comment on above: Performed By: #### L 100.0100, L500.4050, L501.2450 #### [facility] [address] [place], [address] Gastroenterology Visit Repor ton 02-16-2024 Gastroenterology Visit Report [facility] Gastroenterology [address] [place] [address] OFFICE VISIT Date of Service: 02/16/24 MR#: [id number] Acct: [id number] Name: ALISON SANTACRUZ Rep #: [id number] : 1940 Provider: LIZZETTE Edwards Age/Sex: 83/F [place] [facility] Status: Signed Intake Vital Signs 12/19/23 13:28 Height 5 ft 6 in Intake Visit Reasons: Diarrhea Chief Complaint: black tarry stools Allergies Iodinated Contrast Media Allergy (Verified 12/19/23 13:25) Rash atorvastatin (From Lipitor) Adverse Reaction (Verified 12/19/23 13:25) Upset Stomach bupropion (From Wellbutrin) Adverse Reaction (Verified 12/19/23 13:25) Other paroxetine (From Paxil) Adverse Reaction (Verified 12/19/23 13:25) Florence poorly rosuvastatin (From Crestor) Adverse Reaction (Verified [...] BM. Reports poor appetite due to nausea. [facility] Medical History (Updated 02/16/24 @ 09:31 by [...] normal, osmany (more content not included)... Normal [facility] Lipaseon 02-16-2024 Lipase [Catalytic activity/Vol] 37 U/L Normal 13-75 [facility] Comment on above: Result Comment: Juareza se note: LIPASE revised reference range effective 22. New Lipase methodology. Expected to produce lower values than the previous assay method. NEW Reference Range: 13 - 75 U/L Performed By: #### L 100.0100, L500.4050, L501.2450 ####[facility] [address] [facility] [place], [address] Colonoscopy Reporton 024 Colonoscopy Report [facility] Medical Records Department [address] [place] [address] Colonoscopy Report MR#: [id number] Acct: [id number] Name: ALISON SANTACRUZ Rep #: [id number] : 1940 83 From: [facility] Friend DO PCP: Dr. Eddie Waggoner MD [...] present medications. Procedure Code(s): --- Professional --- 43647, Colonoscopy, flexible; with band ligation(s) (eg, hemorrhoids) CPT copyright 2021 [employer]. All rights reserved. The codes documented in this report are preliminary and upon clinical coder review may be revised to meet current compliance requirements. Willie Shook DO 12/19/2023 3:16:04 PM This report has been signed electronically. Number of Addenda: 0 Note Initiated On: 12/19/2023 2:28 PM 12/19/23 1516 Date Willie Shook DO Cosigner Signature: Date (if indicated) CC: Dr. Eddie Waggoner MD; Willie Shook DO Date Dictated: 12/19/23 1428 Date Transcribed: Clinical Product Specialist: ES Signed [facility] MR/POSTOP.Prisca 12-19-2023 MR/POSTOP.[facility] Medical Records Department [address] [place] [address] Anesthesia Postop Eval I 12/19/23 1517 MR#: [id number] Acct: [id number] Name: ALISON SANTACRUZ Rep #: [id number] : 1940 83 From: Jim Middleton PCP: Dr. Eddie Waggoner MD Status:[facility] Y Race: C Location: [place] [address] Anesthesia: Postop Eval I Current Vital Signs [...] Jim Gregg Signature: Date CC: Signed Normal [facility]/OEPYSEBM7yt 12-19-2023 [facility] Medical Records Department [address] [place] [address] Anesthesia Postop Eval II 12/19/23 1702 MR#: [id number] Acct: [id number] Name: ALISON SANTACRUZ Rep #: [id number] : 1940 83 From: Oliver Kapoor MD PCP: Dr. Eddie Waggoner MD Status:[facility] Y Race: C Location: [place] Anesthesia Postop [...] Oliver Griffinignvalentina Signature: Date CC: Signed Normal [facility] Gastroenterology Visit Repor ton 11-27-2023 Gastroenterology Visit Report [facility] Gastroenterology [address] [place] [address] OFFICE VISIT Date of Service: 11/27/23 MR#: [id number] Acct: [id number] Name: ALISON SANTACRUZ Rep #: [id number] : 1940 Provider: LIZZETTE Edwards Age/Sex: 83/F Location: [facility] [place] Status: Signed Intake Vital Signs 08/09/23 09:12 Height 5 ft 5 in Intake Visit Reasons: Hemorrhoids Chief Complaint: hemrrhoids, nausea Allergies Iodinated Contrast Media Allergy (Verified 11/17/23 13:31) Rash atorvastatin (From Lipitor) Adverse Reaction (Verified 11/17/23 13:31) Upset Stomach bupropion (From Wellbutrin) Adverse Reaction (Verified 11/17/23 13:31) Other paroxetine (From Paxil) Adverse Reaction (Verified 11/17/23 13:31) Florence poorly rosuvastatin (From Crestor) Adverse Reaction (Verified [...] PO DAILY 07/14/22 11/17/23 History glucosamine 750 bx-glzrnuzwyop-dkv 1 tab PO DAILY 07/14/22 11/17/23 History no1 644 mg-C 30 mg-liset 1 mg tablet (Osteo Bi-Flex Triple Strength) levothyroxine 137 mcg tablet 137 mcg PO DAILY 07/14/22 11/17/23 History multivitamin 1 tab PO DAILY 07/14/22 11/17/23 History omega 5-zzm-wjj-fish oil 60 mg-90 1 cap PO DAILY [...] her last colonoscopy was 7-8 years ago. [facility] Medical History Abnormal EKG Varicose veins of [...] to the office today for establishment with [facility]. Pt has a PMHx of valvular heart [...] Musculoskeletal: Posi (more content not included)... Normal [facility] Sinus/Facial Boneon 10-27-19 Sinus/Facial Bone [facility] Imaging Services [address] [place] [address] Sinus/Facial Bone MR#: [id number] Acct: [id number] Name: ALISON SANTACRUZ Rep #: [id number] : 1940 F 83 From: Ramon toledo MD PCP: Dr. Eddie Waggoner MD Status: REG CLI Study: Sinus/Facial Bone Date of Exam: 10/27/23 Exam# [id number] Ordering Dr: Balaji Avitia MD [id number] STUDY: CT MAXILLOFACIAL SINUSES REASON FOR EXAM: [...] Balaji Avitia MD; Dr. Eddie Waggoner MD Clinical Product Specialist: Signed Normal [facility] CBC W/Diff, Automatedon 10-05 Absolute Lymph 1.39 X10 3/uL Normal 0.83-4.51 [facility] Comment on above: Order Comment: Order Date: 10/26/23Order Info: 0184-1 - CBCD Performed By: #### L 500.4050, L500.4100, L501.9520, L100.0100 ####[facility] [address] [place], [address] Absolute Neut 2.8 X10 3/uL Normal 2.0-7.7 [facility] Comment on above: Order Comment: Order Date: 10/26/23Order Info: 0184-1 - CBCD Performed By: #### L 500.4050, L500.4100, L501.9520, L100.0100 ####[facility] [address] [place], [address] Basophils/100 WBC (Bld) 0.8 % Normal 0-1 [facility] Comment on above: Order Comment: Order Date: 10/26/23Order Info: 0184-1 - CBCD Performed By: #### L 500.4050, L500.4100, L501.9520, L100.0100 ####[facility] [address] [place], [address] Eosinophils/100 WBC (Bld) 4.0 % Normal 0-5 [facility] Comment on above: Order Comment: Order Date: 10/26/23Order Info: 0184-1 - CBCD Performed By: #### L 500.4050, L500.4100, L501.9520, L100.0100 ####[facility] [address] [place], [address] Erythrocyte distribution width (RBC) [Ratio] 11.9 % Normal 11.6-14.6 [facility] Comment on above: Order Comment: Order Date: 10/26/23Order Info: 0184-1 - CBCD Performed By: #### L 500.4050, L500.4100, L501.9520, L100.0100 ####[facility] [address] [place], [address] Hematocrit (Bld) [Volume fraction] 35.4 % Low 37-47 [facility] Comment on above: Order Comment: Order Date: 10/26/23Order Info: 018- - CBCD Performed By: #### L 500.4050, L500.4100, L501.9520, L100.0100 ####[facility] [address] [place], [address] Hemoglobin (Bld) [Mass/Vol] 12.0 g/dL Normal 12.0-15.0 [facility] Comment on above: Order Comment: Order Date: 10/26/23Order Info: 0184- - CBCD Performed By: #### L 500.4050, L500.4100, L501.9520, L100.0100 ####[facility] [address] [place], [address] IG% 0.600 Normal 0.0-0.9 [facility] Comment on above: Order Comment: Order Date: 10/26/23Order Info: 0184-1 - CBCD Result Comment: IG% - Immature Granulocytes (promyelocytes, myelocytes and metamyelocytes) > 1% indicates that a LEFT SHIFT is Present. Performed By: #### L 500.4050, L500.4100, L501.9520, L100.0100 ####[facility] [address] [place], [address] Lymphocytes/100 WBC (Bld) 29.1 % Normal 19-41 [facility] Comment on above: Order Comment: Order Date: 10/26/23Order Info: 018-1 - CBCD Performed By: #### L 500.4050, L500.4100, L501.9520, L100.0100 ####[facility] [address] [place], [address] MCH (RBC) [Entitic mass] 30.2 pg Normal 27.0-32.0 [facility] Comment on above: Order Comment: Order Date: 10/26/23Order Info: 018- - CBCD Performed By: #### L 500.4050, L500.4100, L501.9520, L100.0100 ####[facility] [address] [place], [address] MCHC (RBC) [Mass/Vol] 33.9 g/dL Normal 32-36 [facility] Comment on above: Order Comment: Order Date: 10/26/23Order Info: 018- - CBCD Performed By: #### L 500.4050, L500.4100, L501.9520, L100.0100 ####[facility] [address] [place], [address] MCV (RBC) [Entitic vol] 88.9 fL Normal 81-99 [facility] Comment on above: Order Comment: Order Date: 10/26/23Order Info: 018- - CBCD Performed By: #### L 500.4050, L500.4100, L501.9520, L100.0100 ####[facility] [address] [place], [address] Monocytes/100 WBC (Bld) 6.9 % Normal 0-10 [facility] Comment on above: Order Comment: Order Date: 10/26/23Order Info: 0184-1 - CBCD Performed By: #### L 500.4050, L500.4100, L501.9520, L100.0100 ####[facility] [address] [place], [address] Neutrophils/100 WBC (Bld) 58.6 % Normal 47-70 [facility] Comment on above: Order Comment: Order Date: 10/26/23Order Info: 0184-1 - CBCD Performed By: #### L 500.4050, L500.4100, L501.9520, L100.0100 ####[facility] [address] [place], [address] Nucleated RBC (Bld) [#/Vol] 0 10*3/uL Normal 0-5 [facility] Comment on above: Order Comment: Order Date: 10/26/23Order Info: 018- - CBCD Performed By: #### L 500.4050, L500.4100, L501.9520, L100.0100 ####[facility] [address] [place], [address] Platelet mean volume (Bld) [Entitic vol] 8.7 fL Normal 6.2-12.0 [facility] Comment on above: Order Comment: Order Date: 10/26/23Order Info: 018- - CBCD Performed By: #### L 500.4050, L500.4100, L501.9520, L100.0100 ####[facility] [address] [place], [address] Platelets (Bld) [#/Vol] 198 10*3/uL Normal 150-450 [facility] Comment on above: Order Comment: Order Date: 10/26/23Order Info: 0184-1 - CBCD Performed By: #### L 500.4050, L500.4100, L501.9520, L100.0100 ####[facility] [address] [place], [address] RBC (Bld) [#/Vol] 3.98 10*6/uL Low 4.2-5.4 [facility] Comment on above: Order Comment: Order Date: 10/26/23Order Info: 0184-1 - CBCD Performed By: #### L 500.4050, L500.4100, L501.9520, L100.0100 ####[facility] [address] [place], [address] RDW SD 37.7 fl Normal 35.1-43.9 [facility] Comment on above: Order Comment: Order Date: 10/26/23Order Info: 0184-1 - CBCD Performed By: #### L 500.4050, L500.4100, L501.9520, L100.0100 ####[facility] [address] [place], [address] WBC (Bld) [#/Vol] 4.8 10*3/uL Normal 4.4-11.0 [facility] Comment on above: Order Comment: Order Date: 10/26/23Order Info: 0184-1 - CBCD Performed By: #### L 500.4050, L500.4100, L501.9520, L100.0100 ####[facility] [address] [place], [address] Comprehensive Metabolic Prof ilon 10-26-2023 Albumin [Mass/Vol] 3.6 g/dL Normal 3.2-5.0 [facility] Comment on above: Order Comment: Order Date: 10/26/23Order Info: [id number] - CMPOrder Info: [id number] - LIPIDOrder Info: [id number] - TSH Performed By: #### L 500.4050, L500.4100, L501.9520, L100.0100 ####[facility] [address] [place], [address] Albumin/Globulin [Mass ratio] 1.1 {ratio} Normal 0.9-2.4 [facility] Comment on above: Order Comment: Order Date: 10/26/23Order Info: [id number] - CMPOrder Info: [id number] - LIPIDOrder Info: [id number] - TSH Performed By: #### L 500.4050, L500.4100, L501.9520, L100.0100 ####[facility] [address] [place], [address] ALK P 70 U/L Normal 45-117 [facility] Comment on above: Order Comment: Order Date: 10/26/23Order Info: [id number] - CMPOrder Info: [id number] - LIPIDOrder Info: [id number] - TSH Performed By: #### L 500.4050, L500.4100, L501.9520, L100.0100 ####[facility] [address] [place], [address] ALT [Catalytic activity/Vol] 26 U/L Normal 13-56 [facility] Comment on above: Order Comment: Order Date: 10/26/23Order Info: [id number] - CMPOrder Info: [id number] - LIPIDOrder Info: [id number] - TSH Performed By: #### L 500.4050, L500.4100, L501.9520, L100.0100 ####[facility] [address] [place], [address] AST [Catalytic activity/Vol] 23 U/L Normal 15-37 [facility] Comment on above: Order Comment: Order Date: 10/26/23Order Info: [id number] - CMPOrder Info: [id number] - LIPIDOrder Info: [id number] - TSH Performed By: #### L 500.4050, L500.4100, L501.9520, L100.0100 ####[facility] [address] [place], [address] Bilirubin [Mass/Vol] 0.70 mg/dL Normal 0.20-1.00 [facility] Comment on above: Order Comment: Order Date: 10/26/23Order Info: 07-1 - CMPOrder Info: [id number] - LIPIDOrder Info: [id number] - TSH Result Comment: For patients on eltrombopag therapy, use of Dimension [place] TBIL is not recommended. Performed By: #### L 500.4050, L500.4100, L501.9520, L100.0100 ####[facility] [address] [place], [address] BUN/CRE 16.8 RATIO Normal 10-20 [facility] Comment on above: Order Comment: Order Date: 10/26/23Order Info: 07-1 - CMPOrder Info: [id number] - LIPIDOrder Info: 6-3 - TSH Performed By: #### L 500.4050, L500.4100, L501.9520, L100.0100 ####[facility] [address] [place], [address] CA,Total 8.7 mg/dL Normal 8.5-10.1 [facility] Comment on above: Order Comment: Order Date: 10/26/23Order Info: 07-1 - CMPOrder Info: [id number] - LIPIDOrder Info: [id number] - TSH Performed By: #### L 500.4050, L500.4100, L501.9520, L100.0100 ####[facility] [address] [place], [address] Chloride [Moles/Vol] 104 mmol/L Normal 98-107 [facility] Comment on above: Order Comment: Order Date: 10/26/23Order Info: 07-1 - CMPOrder Info: [id number] - LIPIDOrder Info: [id number] - TSH Performed By: #### L 500.4050, L500.4100, L501.9520, L100.0100 ####[facility] [address] [place], [address] CO2 [Moles/Vol] 30.0 mmol/L Normal 21.0-32.0 [facility] Comment on above: Order Comment: Order Date: 10/26/23Order Info: 07-1 - CMPOrder Info: [id number] - LIPIDOrder Info: 3 - TSH Performed By: #### L 500.4050, L500.4100, L501.9520, L100.0100 ####[facility] [address] [place], [address] Creatinine [Mass/Vol] 0.83 mg/dL Normal 0.55-1.02 [facility] Comment on above: Order Comment: Order Date: 10/26/23Order Info: 785- - CMPOrder Info: [id number] - LIPIDOrder Info: [id number] - TSH Result Comment: The validity of the calculated GFR GFRAA in patients over 70 years has not been determined. Clinical correlation is essential. Performed By: #### L 500.4050, L500.4100, L501.9520, L100.0100 ####[facility] [address] [place], [address] EST GFR - AA 84 mL/min Normal >60 [facility] Comment on above: Order Comment: Order Date: 10/26/23Order Info: 785- - CMPOrder Info: [id number] - LIPIDOrder Info: [id number] - TSH Result Comment: Afri can [place] GFR Calc Performed By: #### L 500.4050, L500.4100, L501.9520, L100.0100 ####[facility] [address] [place], [address] GAP 5 Normal 5-15 [facility] Comment on above: Order Comment: Order Date: 10/26/23Order Info: 785- - CMPOrder Info: [id number] - LIPIDOrder Info: 3 - TSH Performed By: #### L 500.4050, L500.4100, L501.9520, L100.0100 ####[facility] [address] [place], [address] GFR/1.73 sq M.predicted among non-blacks MDRD (S/P/Bld) [Vol rate/Area] 69 mL/min/{1.73_m2} Normal >60 [facility] Comment on above: Order Comment: Order Date: 10/26/23Order Info: 785-1 - CMPOrder Info: [id number] - LIPIDOrder Info: [id number] - TSH Result Comment: Non- GFR Calc Performed By: #### L 500.4050, L500.4100, L501.9520, L100.0100 ####[facility] [address] [place], [address] Globulin (S) [Mass/Vol] 3.4 g/dL Normal 2.2-4.2 [facility] Comment on above: Order Comment: Order Date: 10/26/23Order Info: 785- - CMPOrder Info: [id number] - LIPIDOrder Info: 3 - TSH Performed By: #### L 500.4050, L500.4100, L501.9520, L100.0100 ####[facility] [address] [place], [address] Glucose [Mass/Vol] 104 mg/dL Normal 74-106 [facility] Comment on above: Order Comment: Order Date: 10/26/23Order Info: 07- - CMPOrder Info: [id number] - LIPIDOrder Info: [id number] - TSH Result Comment: Fast ing Glucose result from 100 to 125 mg/dL suggests IMPAIRED HOMEOSTASIS per A.D.A. criteria. Performed By: #### L 500.4050, L500.4100, L501.9520, L100.0100 ####[facility] [address] [place], [address] Potassium [Moles/Vol] 3.7 mmol/L Normal 3.5-5.1 [facility] Comment on above: Order Comment: Order Date: 10/26/23Order Info: 785- - CMPOrder Info: [id number] - LIPIDOrder Info: [id number] - TSH Performed By: #### L 500.4050, L500.4100, L501.9520, L100.0100 ####[facility] [address], [address] Sodium [Moles/Vol] 139 mmol/L Normal 136-145 [facility] Comment on above: Order Comment: Order Date: 10/26/23Order Info: 86-1 - CMPOrder Info: [id number] - LIPIDOrder Info: 3 - TSH Performed By: #### L 500.4050, L500.4100, L501.9520, L100.0100 ####[facility] [address], [address] T PROT 7.0 g/dL Normal 6.4-8.2 [facility] Comment on above: Order Comment: Order Date: 10/26/23Order Info: 785- - CMPOrder Info: [id number] - LIPIDOrder Info: [id number] - TSH Performed By: #### L 500.4050, L500.4100, L501.9520, L100.0100 ####[facility] [address] [place], [address] Urea nitrogen [Mass/Vol] 14 mg/dL Normal 7-18 [facility] Comment on above: Order Comment: Order Date: 10/26/23Order Info: 785- - CMPOrder Info: [id number] - LIPIDOrder Info: [id number] - TSH Performed By: #### L 500.4050, L500.4100, L501.9520, L100.0100 ####[facility] [address] [place], [address] Lipid Profileon 10-26-2023 Cholesterol [Mass/Vol] 254 mg/dL High 200 [facility] Comment on above: Order Comment: Order Date: 10/26/23Order Info: [id number] - CMPOrder Info: [id number] - LIPIDOrder Info: [id number] - TSH Result Comment: <200 mg/dL Desirable 200-240 mg/dL Borderline >240 mg/dL High Risk Performed By: #### L 500.4050, L500.4100, L501.9520, L100.0100 ####[facility] [address] [place], [address] Cholesterol in HDL [Mass/Vol] 56 mg/dL Normal [facility] Comment on above: Order Comment: Order Date: 10/26/23Order Info: [id number] - CMPOrder Info: [id number] - LIPIDOrder Info: [id number] - TSH Result Comment: The drugs N-Acetylcysteine and Metamizole may falsely depress this assay. Reference Range HDL <40 mg/dL Low HDL Cholesterol HDL >or= 60 mg/dL High HDL Cholesterol Performed By: #### L 500.4050, L500.4100, L501.9520, L100.0100 ####[facility] [address] [place], [address] Cholesterol in LDL [Mass/Vol] 150 mg/dL High 0-130 [facility] Comment on above: Order Comment: Order Date: 10/26/23Order Info: [id number] - CMPOrder Info: - LIPIDOrder Info: [id number] - TSH Performed By: #### L 500.4050, L500.4100, L501.9520, L100.0100 ####[facility] [address] [place], [address] Cholesterol in VLDL [Mass/Vol] 48 mg/dL High 5-40 [facility] Comment on above: Order Comment: Order Date: 10/26/23Order Info: [id number] - CMPOrder Info: [id number] - LIPIDOrder Info: [id number] - TSH Performed By: #### L 500.4050, L500.4100, L501.9520, L100.0100 ####[facility] [address] [place], [address] Triglyceride [Mass/Vol] 242 mg/dL High [facility] Comment on above: Order Comment: Order Date: 10/26/23Order Info: [id number] - CMPOrder Info: [id number] - LIPIDOrder Info: [id number] - TSH Result Comment: The drugs N-Acetylcysteine and Metamizole may falsely depress this assay. Serum Triglycerides Reference Interval Normal <150 mg/dL Borderline high 150 - 199 mg/dL High 200 - 499 mg/dL Very High > or = 500 mg/dL Performed By: #### L 500.4050, L500.4100, L501.9520, L100.0100 ####[facility] [id number] [place], [place], [id number] Thyroid Stim Hormone (TSH)on 10-26-2023 TSH 3.110 uIU/mL Normal 0.358-3.740 [facility] Comment on above: Order Comment: Order Date: 10/26/23Order Info: [id number] CMPOrder Info: [id number] - LIPIDOrder Info: [id number] - TSH Performed By: #### L 500.4050, L500.4100, L501.9520, L100.0100 ####[facility] [id number] [facility]. [place], [place], [id number] Absolute lymphocyte countOrd ered By: Tila Bailey on 01-17-2023 Lymphocytes Auto (Unsp spec) [#/Vol] 0.50 10*3/uL 0.83-4.51 [facility] Basophil percentageOrdered B y: Tila Bailey on 01-17-2023 Creatinine [Mass/Vol] 1.0 mg/dL 0.55-1.02 [facility] Basophils/100 WBC (Bld) 0.3 % 0-1 [facility] Bilirubin [Mass/Vol] 0.70 mg/dL 0.20-1.00 [facility] Comment on above: For patients on eltr ombopag therapy, use of Dimension [place] TBIL is not recommended. Chloride [Moles/Vol] 105 mmol/L 98-107 [facility] Cholesterol [Mass/Vol] 264 mg/dL <200 [facility] Comment on above: <200 mg/dL Desirable 200-240 mg/dL Borderline >240 mg/dL High Risk Eosinophils/100 WBC (Bld) 2.5 % 0-5 [facility] Glucose [Mass/Vol] 150 mg/dL 74-106 [facility] Comment on above: Fasting Glucose resu lt greater than or equal to 126 mg/dL suggests DIABETES MELLITUS per A.D.A. criteria. Neutrophils (Bld) [#/Vol] 5.4 10*3/uL 2.0-7.7 [facility] Neutrophils/100 WBC (Bld) 84.7 % 47-70 [facility] Potassium [Moles/Vol] 4.1 mmol/L 3.5-5.1 [facility] Protein [Mass/Vol] 7.9 g/dL 6.4-8.2 [facility] Sodium [Moles/Vol] 139 mmol/L 136-145 [facility] Triglyceride [Mass/Vol] 60 mg/dL <199 [facility] Comment on above: The drugs N-Acetylcy steine and Metamizole may falsely depress this assay.Serum Triglycerides Reference Interval Normal <150 mg/dL Borderline high 150 - 199 mg/dL High 200 - 499 mg/dL Very High > or = 500 mg/dL WBC (Bld) [#/Vol] 6.4 10*3/uL 4.4-11.0 [facility] Blood erythrocytes count (nu mber/volume)Ordered By: Tila Bailey on 01-17-2023 RBC (Bld) [#/Vol] 4.36 10*6/uL 4.2-5.4 [facility] Blood hemoglobin measurement (mass/volume)Ordered By: Tila Bailey on 01-17-2023 Hemoglobin (Bld) [Mass/Vol] 12.7 g/dL 12.0-15.0 [facility] Blood lymphocytes/100 leukoc ytesOrdered By: Tila Bailey on 01-17-2023 Lymphocytes/100 WBC (Bld) 7.9 % 19-41 [facility] Blood manual differential co mment interpretation (narrative result)Ordered By: Tila Bailey on 01-17-2023 Manual differential comment Mehdi (Bld) [Interp] SCANNED [facility] Blood monocytes/100 leukocyt esOrdered By: Tila Bailey on 01-17-2023 Monocytes/100 WBC (Bld) 4.1 % 0-10 [facility] Blood platelet mean volumeOr dered By: Tila Bailey on 01-17-2023 Platelet mean volume (Bld) [Entitic vol] 8.7 fL 6.2-12.0 [facility] Determination of erythrocyte mean corpuscular volume (MCV)Ordered By: Tila Bailey on 01-17-2023 MCV (RBC) [Entitic vol] 89.0 fL 81-99 [facility] Hematocrit Auto (Bld) [Volum e fraction]Ordered By: Tila Bailey on 01-17-2023 Hematocrit (Bld) [Volume fraction] 38.8 % 37-47 [facility] Laboratory - Chemistry and C hemistry - challengeOrdered By: Tila Bailey on 01-17-2023 GFR/1.73 sq M.predicted among non-blacks MDRD (S/P/Bld) [Vol rate/Area] 54.0000 mL/min/{1.73_m2} >60 [facility] ALP [Catalytic activity/Vol] 70 U/L 45-117 [facility] ALT [Catalytic activity/Vol] 27 U/L 13-56 [facility] CO2 [Moles/Vol] 27.0 mmol/L 21.0-32.0 [facility] Globulin (S) [Mass/Vol] 3.9 g/dL 2.2-4.2 [facility] Urea nitrogen/Creatinine [Mass ratio] 18.3 mg/mg 10-20 [facility] Laboratory - Hematology and Cell countsOrdered By: Tila Bailey on 01-17-2023 Erythrocyte distribution width (RBC) [Entitic vol] 39.1 fL 35.1-43.9 [facility] Erythrocyte distribution width (RBC) [Ratio] 12.0 % 11.6-14.6 [facility] Immature granulocytes/100 WBC (Bld) 0.500 % 0.0-0.9 [facility] Comment on above: IG% - Immature Granu locytes (promyelocytes, myelocytes and metamyelocytes) > 1% indicates that a LEFT SHIFT is Present. MCH (RBC) [Entitic mass] 29.1 pg 27.0-32.0 [facility] Nucleated RBC/100 WBC (Bld) [Ratio] 0 % 0-5 [facility] [Mass/Vol]Or dered By: Tila Bailey on 01-17-2023 MCHC (RBC) [Mass/Vol] 32.7 g/dL 32-36 [facility] No Panel InformationOrdered By: Tila Bailey on 01-17-2023 Estimated GFR (MDRD) Amer 74 mL/min >60 [facility] Comment on above: GFR Calc Estimated GFR (MDRD) Non-Af Amer 61 mL/min >60 [facility] Comment on above: Non- GFR Calc Thyroid Stimulating Hormone (TSH) 0.86 uIU/mL 0.358-3.74 [facility] Vitamin D 25-Hydroxy 102.0 ng/mL [facility] Comment on above: Vitamin D 25(OH) Sta [...] 01-17-2023 Platelets (Bld) [#/Vol] 207 10*3/uL 150-450 [facility] Serum or plasma albumin jose martin urement (mass/volume)Ordered By: Tila Bailey on 01-17-2023 Albumin [Mass/Vol] 4.0 g/dL 3.2-5.0 [facility] Serum or plasma albumin/glob ulin mass ratioOrdered By: Tila Bailey on 01-17-2023 Albumin/Globulin [Mass ratio] 1.0 {ratio} 0.9-2.4 [facility] Serum or plasma calcium jose martin urement (mass/volume)Ordered By: Tila Bailey on 01-17-2023 Calcium [Mass/Vol] 9.3 mg/dL 8.5-10.1 [facility] Serum or plasma cholesterol in HDL measurement (mass/volume)Ordered By: Tila Bailey on 01-17-2023 Cholesterol in HDL [Mass/Vol] 81 mg/dL >40 [facility] Comment on above: The drugs N-Acetylcy steine and Metamizole may falsely depress this assay. Reference Range HDL <40 mg/dL Low HDL Cholesterol HDL >or= 60 mg/dL High HDL Cholesterol Serum or plasma cholesterol in VLDL measurement (mass/volume)Ordered By: Tila Bailey on 01-17-2023 Cholesterol in VLDL [Mass/Vol] 12 mg/dL 5-40 [facility] Serum or plasma creatinine m easurement (mass/volume)Ordered By: Tila Bailey on 01-17-2023 Creatinine [Mass/Vol] 0.93 mg/dL 0.55-1.02 [facility] Comment on above: The validity of the calculated GFR & GFRAA in patients over 70 years has not been determined. Clinical correlation is essential. Serum or plasma low density lipoprotein (LDL) cholesterol measurement (mass/volume)Ordered By: Tila Bailey on 01-17-2023 Cholesterol in LDL [Mass/Vol] 171 mg/dL 0-130 [facility] Serum or plasma urea nitroge n measurement (mass/volume)Ordered By: Tila Bailey on 01-17-2023 Urea nitrogen [Mass/Vol] 17 mg/dL 7-18 [facility] Thin prep Papanicolaou smear with manual screeningOrdered By: Tila Bailey on 01-17-2023 Thin prep Papanicolaou smear with manual screening 16 U/L 15-37 [facility] Thin prep Papanicolaou smear with manual screening 7 5-15 [facility] Laboratory - Chemistry and C hemistry - challengeOrdered By: Roxanna Lemus on 09-15-2022 Free T4 [Mass/Vol] 1.19 ng/dL 0.76-1.46 [facility] No Panel InformationOrdered By: Roxanna Allan on 09-15-2022 Thyroid Stimulating Hormone (TSH) 2.38 uIU/mL 0.358-3.74 [facility] Absolute lymphocyte countOrd ered By: Vernon Garrett on 07-19-2022 Lymphocytes Auto (Unsp spec) [#/Vol] 1.39 10*3/uL 0.83-4.51 [facility] Basophil percentageOrdered B y: Vernon Garrett on 07-19-2022 Basophils/100 WBC (Bld) 0.6 % 0-1 [facility] Bilirubin [Mass/Vol] 0.50 mg/dL 0.20-1.00 [facility] Comment on above: For patients on eltr ombopag therapy, use of [place] TBIL is not recommended. Chloride [Moles/Vol] 106 mmol/L 98-107 [facility] Eosinophils/100 WBC (Bld) 8.1 % 0-5 [facility] Glucose [Mass/Vol] 119 mg/dL 74-106 [facility] Comment on above: Fasting Glucose resu lt from 100 to 125 mg/dL suggests IMPAIRED HOMEOSTASIS per A.D.A. criteria. LDH [Catalytic activity/Vol] 188 U/L 84-246 [facility] Neutrophils (Bld) [#/Vol] 2.6 10*3/uL 2.0-7.7 [facility] Neutrophils/100 WBC (Bld) 53.9 % 47-70 [facility] Potassium [Moles/Vol] 4.1 mmol/L 3.5-5.1 [facility] Protein [Mass/Vol] 7.5 g/dL 6.4-8.2 [facility] Sodium [Moles/Vol] 139 mmol/L 136-145 [facility] WBC (Bld) [#/Vol] 4.8 10*3/uL 4.4-11.0 [facility] Blood erythrocytes count (nu mber/volume)Ordered By: Vernon Garrett on 07-19-2022 RBC (Bld) [#/Vol] 4.23 10*6/uL 4.2-5.4 [facility] Blood hemoglobin measurement (mass/volume)Ordered By: Vernon Garrett on 07-19-2022 Hemoglobin (Bld) [Mass/Vol] 12.7 g/dL 12.0-15.0 [facility] Blood lymphocytes/100 leukoc ytesOrdered By: Vernon Garrett on 07-19-2022 Lymphocytes/100 WBC (Bld) 28.9 % 19-41 [facility] Blood monocytes/100 leukocyt esOrdered By: Vernon Garrett on 07-19-2022 Monocytes/100 WBC (Bld) 8.3 % 0-10 [facility] Blood platelet mean volumeOr dered By: Vernon Garrett on 07-19-2022 Platelet mean volume (Bld) [Entitic vol] 8.4 fL 6.2-12.0 [facility] Determination of erythrocyte mean corpuscular volume (MCV)Ordered By: Vernon Garrett on 07-19-2022 MCV (RBC) [Entitic vol] 89.6 fL 81-99 [facility] Erythrocyte sedimentation ra teOrdered By: Vernon Garrett on 07-19-2022 ESR (Bld) [Velocity] 12 mm/h 0-30 [facility] Hematocrit Auto (Bld) [Volum e fraction]Ordered By: Vernon Garrett on 07-19-2022 Hematocrit (Bld) [Volume fraction] 37.9 % 37-47 [facility] Hemoglobin in reticulocytes (mass per reticulocyte)Ordered By: Vernon Garrett on 07-19-2022 Hemoglobin (Reticulocytes) [Entitic mass] 32.7 pg 30-35 [facility] Iron measurement (mass/mass) Ordered By: Vernon Garrett on 07-19-2022 Iron (Unsp spec) [Mass/Mass] 55 ug/dL 50-170 [facility] Laboratory - Chemistry and C hemistry - challengeOrdered By: Vernon Garrett on 07-19-2022 ALP [Catalytic activity/Vol] 106 U/L 45-117 [facility] ALT [Catalytic activity/Vol] 30 U/L 13-56 [facility] CO2 [Moles/Vol] 27.0 mmol/L 21.0-32.0 [facility] Cobalamin (Vitamin B12) [Mass/Vol] 428 pg/mL 211-911 [facility] Globulin (S) [Mass/Vol] 3.6 g/dL 2.2-4.2 [facility] Urea nitrogen/Creatinine [Mass ratio] 21.3 mg/mg 10-20 [facility] Laboratory - Hematology and Cell countsOrdered By: Vernon Garrett on 07-19-2022 Erythrocyte distribution width (RBC) [Entitic vol] 41.0 fL 35.1-43.9 [facility] Erythrocyte distribution width (RBC) [Ratio] 12.4 % 11.6-14.6 [facility] Immature granulocytes/100 WBC (Bld) 0.200 % 0.0-0.9 [facility] Comment on above: IG% - Immature Granu locytes (promyelocytes, myelocytes and metamyelocytes) > 1% indicates that a LEFT SHIFT is Present. MCH (RBC) [Entitic mass] 30.0 pg 27.0-32.0 [facility] Nucleated RBC/100 WBC (Bld) [Ratio] 0 % 0-5 [facility] MCHC Auto (RBC) [Mass/Vol]Or dered By: Vernon Garrett on 07-19-2022 MCHC (RBC) [Mass/Vol] 33.5 g/dL 32-36 [facility] No Panel InformationOrdered By: Vernon Garrett on 07-19-2022 Estimated GFR (MDRD) Amer 78 mL/min >60 [facility] Comment on above: GFR Calc Estimated GFR (MDRD) Non-Af Amer 64 mL/min >60 [facility] Comment on above: Non- GFR Calc Immature Reticulocyte Fraction 5.80 % 3.00-15.90 [facility] Reticulocyte Count 1.11 % 0.5-1.5 [facility] Total Iron Binding Capacity 319 ug/dL 250-450 [facility] Platelets bldOrdered By: David Garrett on 07-19-2022 Platelets (Bld) [#/Vol] 182 10*3/uL 150-450 [facility] Serum or plasma C reactive p rotein measurement (mass/volume)Ordered By: Vernon Garrett on 07-19-2022 CRP [Mass/Vol] mg/L 0.0-3.0 [facility] Comment on above: C-Reactive Protein ( CRP) provides useful information for thediagnosis, therapy and monitoring of inflammatory processesand associated diseases. For the evaluation of Relative Riskfor Cardiovascular Disease, a High Sensitivity CRP (HSCRP)should be ordered. Serum or plasma albumin jose martin urement (mass/volume)Ordered By: Vernon Hola on 07-19-2022 Albumin [Mass/Vol] 3.9 g/dL 3.2-5.0 [facility] Serum or plasma albumin/glob ulin mass ratioOrdered By: Vernon Simental on 07-19-2022 Albumin/Globulin [Mass ratio] 1.1 {ratio} 0.9-2.4 [facility] Serum or plasma calcium jose martin urement (mass/volume)Ordered By: Vernon Simental on 07-19-2022 Calcium [Mass/Vol] 9.1 mg/dL 8.5-10.1 [facility] Serum or plasma creatinine m easurement (mass/volume)Ordered By: Vernon [facility] on 07-19-2022 Creatinine [Mass/Vol] 0.89 mg/dL 0.55-1.02 [facility] Comment on above: The validity of the calculated GFR & GFRAA in patients over 70 years has not been determined. Clinical correlation is essential. Serum or plasma ferritin manuela surement (mass/volume)Ordered By: Vernon Simental on 07-19-2022 Ferritin [Mass/Vol] 55 ng/mL 8-252 [facility] Serum or plasma folate measu rement (mass/volume)Ordered By: Vernon Simental on 07-19-2022 Folate [Mass/Vol] 49.60 ng/mL 3.1-55.4 [facility] Serum or plasma iron saturat ion measurement (mass fraction)Ordered By: Vernon [facility] on 07-19-2022 Iron saturation [Mass fraction] 17.2 % 15.0-55.0 [facility] Serum or plasma urea nitroge n measurement (mass/volume)Ordered By: Vernon Garrett on 07-19-2022 Urea nitrogen [Mass/Vol] 19 mg/dL 7-18 [facility] Thin prep Papanicolaou smear with manual screeningOrdered By: Vernon Garrett on 07-19-2022 Thin prep Papanicolaou smear with manual screening 20 U/L 15-37 [facility] Thin prep Papanicolaou smear with manual screening 6 5-15 [facility] Absolute lymphocyte countOrd ered By: Roxanna Lemus on 07-05-2022 Lymphocytes Auto (Unsp spec) [#/Vol] 1.06 10*3/uL 0.83-4.51 [facility] Basophil percentageOrdered B y: Roxanna Lemus on 07-05-2022 Basophils/100 WBC (Bld) 0.7 % 0-1 [facility] Eosinophils/100 WBC (Bld) 9.7 % 0-5 [facility] Neutrophils (Bld) [#/Vol] 1.2 10*3/uL 2.0-7.7 [facility] Neutrophils/100 WBC (Bld) 41.5 % 47-70 [facility] WBC (Bld) [#/Vol] 2.8 10*3/uL 4.4-11.0 [facility] Blood erythrocytes count (nu mber/volume)Ordered By: Roxanna Lemus on 07-05-2022 RBC (Bld) [#/Vol] 4.23 10*6/uL 4.2-5.4 [facility] Blood hemoglobin measurement (mass/volume)Ordered By: Roxanna Lemus on 07-05-2022 Hemoglobin (Bld) [Mass/Vol] 12.6 g/dL 12.0-15.0 [facility] Blood lymphocytes/100 leukoc ytesOrdered By: Roxanna Lemus on 07-05-2022 Lymphocytes/100 WBC (Bld) 38.0 % 19-41 [facility] Blood monocytes/100 leukocyt esOrdered By: Roxanna Lemus on 07-05-2022 Monocytes/100 WBC (Bld) 9.7 % 0-10 [facility] Blood platelet mean volumeOr dered By: Roxanna Lemus on 07-05-2022 Platelet mean volume (Bld) [Entitic vol] 8.9 fL 6.2-12.0 [facility] Determination of erythrocyte mean corpuscular volume (MCV)Ordered By: Roxanna Lemus on 07-05-2022 MCV (RBC) [Entitic vol] 90.5 fL 81-99 [facility] Hematocrit Auto (Bld) [Volum e fraction]Ordered By: Roxanna Lemus on 07-05-2022 Hematocrit (Bld) [Volume fraction] 38.3 % 37-47 [facility] Laboratory - Hematology and Cell countsOrdered By: Roxanna Lemus on 07-05-2022 Erythrocyte distribution width (RBC) [Entitic vol] 41.6 fL 35.1-43.9 [facility] Erythrocyte distribution width (RBC) [Ratio] 12.6 % 11.6-14.6 [facility] Immature granulocytes/100 WBC (Bld) 0.400 % 0.0-0.9 [facility] Comment on above: IG% - Immature Granu locytes (promyelocytes, myelocytes and metamyelocytes) > 1% indicates that a LEFT SHIFT is Present. MCH (RBC) [Entitic mass] 29.8 pg 27.0-32.0 [facility] Nucleated RBC/100 WBC (Bld) [Ratio] 0 % 0-5 [facility] MCHC Auto (RBC) [Mass/Vol]Or dered By: Roxanna Lemus on 07-05-2022 MCHC (RBC) [Mass/Vol] 32.9 g/dL 32-36 [facility] No Panel InformationOrdered By: Sandra Sheppard on 07-05-2022 Thyroid Stimulating Hormone (TSH) 4.94 uIU/mL 0.358-3.74 [facility] Platelets bldOrdered By: Abhijit Lemus on 07-05-2022 Platelets (Bld) [#/Vol] 198 10*3/uL 150-450 [facility] Absolute lymphocyte countOrd ered By: Roxanna Lemus on 06-07-2022 Lymphocytes Auto (Unsp spec) [#/Vol] 1.09 10*3/uL 0.83-4.51 [facility] Basophil percentageOrdered B y: Roxanna Lemus on 06-07-2022 Basophils/100 WBC (Bld) 1.1 % 0-1 [facility] Bilirubin [Mass/Vol] 1.10 mg/dL 0.20-1.00 [facility] Comment on above: For patients on eltr ombopag therapy, use of Dim[place] TBIL is not recommended. Chloride [Moles/Vol] 107 mmol/L 98-107 [facility] Cholesterol [Mass/Vol] 252 mg/dL <200 [facility] Comment on above: <200 mg/dL Desirable 200-240 mg/dL Borderline >240 mg/dL High Risk Eosinophils/100 WBC (Bld) 10.7 % 0-5 [facility] Glucose [Mass/Vol] 94 mg/dL 74-106 [facility] Neutrophils (Bld) [#/Vol] 1.1 10*3/uL 2.0-7.7 [facility] Neutrophils/100 WBC (Bld) 39.6 % 47-70 [facility] Potassium [Moles/Vol] 3.9 mmol/L 3.5-5.1 [facility] Protein [Mass/Vol] 7.4 g/dL 6.4-8.2 [facility] Sodium [Moles/Vol] 139 mmol/L 136-145 [facility] Triglyceride [Mass/Vol] 94 mg/dL <199 [facility] Comment on above: The drugs N-Acetylcy steine and Metamizole may falsely depress this assay.Serum Triglycerides Reference Interval Normal <150 mg/dL Borderline high 150 - 199 mg/dL High 200 - 499 mg/dL Very High > or = 500 mg/dL WBC (Bld) [#/Vol] 2.7 10*3/uL 4.4-11.0 [facility] Blood erythrocytes count (nu mber/volume)Ordered By: Roxanna Lemus on 06-07-2022 RBC (Bld) [#/Vol] 4.13 10*6/uL 4.2-5.4 [facility] Blood hemoglobin measurement (mass/volume)Ordered By: Roxanna Lemus on 06-07-2022 Hemoglobin (Bld) [Mass/Vol] 12.1 g/dL 12.0-15.0 [facility] Blood lymphocytes/100 leukoc ytesOrdered By: Roxanna Lemus on 06-07-2022 Lymphocytes/100 WBC (Bld) 40.1 % 19-41 [facility] Blood monocytes/100 leukocyt esOrdered By: Roxanna Lemus on 06-07-2022 Monocytes/100 WBC (Bld) 8.1 % 0-10 [facility] Blood platelet mean volumeOr dered By: Roxanna Lemus on 06-07-2022 Platelet mean volume (Bld) [Entitic vol] 8.8 fL 6.2-12.0 [facility] Determination of erythrocyte mean corpuscular volume (MCV)Ordered By: Roxanna Lemus on 06-07-2022 MCV (RBC) [Entitic vol] 88.6 fL 81-99 [facility] Hematocrit Auto (Bld) [Volum e fraction]Ordered By: Roxanna Lemus on 06-07-2022 Hematocrit (Bld) [Volume fraction] 36.6 % 37-47 [facility] Laboratory - Chemistry and C hemistry - challengeOrdered By: Roxanna Lemus on 06-07-2022 ALP [Catalytic activity/Vol] 84 U/L 45-117 [facility] ALT [Catalytic activity/Vol] 26 U/L 13-56 [facility] CO2 [Moles/Vol] 27.0 mmol/L 21.0-32.0 [facility] Globulin (S) [Mass/Vol] 3.6 g/dL 2.2-4.2 [facility] Urea nitrogen/Creatinine [Mass ratio] 19.4 mg/mg 10-20 [facility] Laboratory - Hematology and Cell countsOrdered By: Roxanna Lemus on 06-07-2022 Erythrocyte distribution width (RBC) [Entitic vol] 41.2 fL 35.1-43.9 [facility] Erythrocyte distribution width (RBC) [Ratio] 12.8 % 11.6-14.6 [facility] Immature granulocytes/100 WBC (Bld) 0.400 % 0.0-0.9 [facility] Comment on above: IG% - Immature Granu locytes (promyelocytes, myelocytes and metamyelocytes) > 1% indicates that a LEFT SHIFT is Present. MCH (RBC) [Entitic mass] 29.3 pg 27.0-32.0 [facility] Nucleated RBC/100 WBC (Bld) [Ratio] 0 % 0-5 [facility] MCHC Auto (RBC) [Mass/Vol]Or dered By: Roxanna Lemus on 06-07-2022 MCHC (RBC) [Mass/Vol] 33.1 g/dL 32-36 [facility] No Panel InformationOrdered By: Roxanna Lemus on 06-07-2022 Estimated GFR (MDRD) Amer 79 mL/min >60 [facility] Comment on above: GFR Calc Estimated GFR (MDRD) Non-Af Amer 65 mL/min >60 [facility] Comment on above: Non- GFR Calc Thyroid Stimulating Hormone (TSH) 32.30 uIU/mL 0.358-3.74 [facility] Platelets bldOrdered By: Abhijit Lemus on 06-07-2022 Platelets (Bld) [#/Vol] 188 10*3/uL 150-450 [facility] Serum or plasma albumin jose martin urement (mass/volume)Ordered By: Roxanna Lemus on 06-07-2022 Albumin [Mass/Vol] 3.8 g/dL 3.2-5.0 [facility] Serum or plasma albumin/glob ulin mass ratioOrdered By: Roxanna Lemus on 06-07-2022 Albumin/Globulin [Mass ratio] 1.1 {ratio} 0.9-2.4 [facility] Serum or plasma calcium jose martin urement (mass/volume)Ordered By: Roxanna Lemus on 06-07-2022 Calcium [Mass/Vol] 8.9 mg/dL 8.5-10.1 [facility] Serum or plasma cholesterol in HDL measurement (mass/volume)Ordered By: Roxanna Lemus on 06-07-2022 Cholesterol in HDL [Mass/Vol] 66 mg/dL >40 [facility] Comment on above: The drugs N-Acetylcy steine and Metamizole may falsely depress this assay. Reference Range HDL <40 mg/dL Low HDL Cholesterol HDL >or= 60 mg/dL High HDL Cholesterol Serum or plasma cholesterol in VLDL measurement (mass/volume)Ordered By: Roxanna Lemus on 06-07-2022 Cholesterol in VLDL [Mass/Vol] 19 mg/dL 5-40 [facility] Serum or plasma creatinine m easurement (mass/volume)Ordered By: Roxanna Lemus on 06-07-2022 Creatinine [Mass/Vol] 0.88 mg/dL 0.55-1.02 [facility] Comment on above: The validity of the calculated GFR & GFRAA in patients over 70 years has not been determined. Clinical correlation is essential. Serum or plasma low density lipoprotein (LDL) cholesterol measurement (mass/volume)Ordered By: Roxanna Lemus on 06-07-2022 Cholesterol in LDL [Mass/Vol] 167 mg/dL 0-130 [facility] Serum or plasma urea nitroge n measurement (mass/volume)Ordered By: Roxanna Lemus on 06-07-2022 Urea nitrogen [Mass/Vol] 17 mg/dL 7-18 [facility] Thin prep Papanicolaou smear with manual screeningOrdered By: Roxanna Lemus on 06-07-2022 Thin prep Papanicolaou smear with manual screening 19 U/L 15-37 [facility] Thin prep Papanicolaou smear with manual screening 5 5-15 [facility] Thin prep Papanicolaou smear with manual screening 21.3 mg/L NO RANGE EST. [facility] Vital Signs Date Time Vital Sign Value Performing Clinician Facility 10-05-2024 14:26-0400 Body temperature 99.39 [degF] David Rocha MD Work Phone: [facility] 10-05-2024 14:26-0400 Body weight 72.2 kg David Rocha MD Work Phone: [facility] 10-05-2024 14:26-0400 Diastolic blood pressure 78 mm[Hg] David Rocha MD Work Phone: [facility] 10-05-2024 14:26-0400 Heart rate 85 /min David Rocha MD Work Phone: [facility] 10-05-2024 14:26-0400 Respiratory rate 18 /min David Rocha MD Work Phone: [facility] 10-05-2024 14:26-0400 SaO2% (BldA) [Mass fraction] 98 % David Rocha MD Work Phone: [facility] 10-05-2024 14:26-0400 Systolic blood pressure 122 mm[Hg] David Rocha MD Work Phone: [facility] 07-25-2022 13:15-0400 Body height 165.1 cm DO Roxanna Lemus Work Phone: [facility] 07-25-2022 13:14-0400 Body mass index (BMI) [Ratio] 26.8 kg/m2 DO Roxanna Allan Work Phone: [facility] 07-25-2022 13:14-0400 Body temperature 97.9 [degF] DO Roxanna Allan Work Phone: [facility] 07-25-2022 13:14-0400 Body weight 73.17 kg DO Roxanna Allan Work Phone: [facility] 07-25-2022 13:14-0400 Diastolic blood pressure 68 mm[Hg] DO Roxanna Allan Work Phone: [facility] 07-25-2022 13:14-0400 Heart rate 96 /min DO Roxanna Allan Work Phone: [facility] 07-25-2022 13:14-0400 Respiratory rate 16 /min DO Roxanna Allan Work Phone: [facility] 07-25-2022 13:14-0400 SaO2% (BldA) [Mass fraction] 96 % DO Roxanna Allan Work Phone: [facility] 07-25-2022 13:14-0400 Systolic blood pressure 112 mm[Hg] DO Roxanna Allan Work Phone: [facility] 07-19-2022 14:30-0400 Body mass index (BMI) [Ratio] 26.6 kg/m2 DO Roxanna Allan Work Phone: [facility] 07-19-2022 14:30-0400 Body temperature 97.1 [degF] DO Roxanna Allan Work Phone: [facility] 07-19-2022 14:30-0400 Body weight 72.77 kg DO Roxanna Allan Work Phone: [facility] 07-19-2022 14:30-0400 Diastolic blood pressure 73 mm[Hg] DO Roxanna Allan Work Phone: [facility] 07-19-2022 14:30-0400 Heart rate 96 /min DO Roxanna Allan Work Phone: [facility] 07-19-2022 14:30-0400 Respiratory rate 16 /min DO Roxanna Lemus Work Phone: [facility] 07-19-2022 14:30-0400 SaO2% (BldA) [Mass fraction] 97 % DO Roxanna Lemus Work Phone: [facility] 07-19-2022 14:30-0400 Systolic blood pressure 118 mm[Hg] DO Roxannafelice Lemus Work Phone: [facility] Encounters Encounter Date Encounter Type Care Provider Facility Start: 10-11-2024 ambulatory Chalon Rosaline [facility] Start: 10-06-2024 End: 10-06-2024 Emergency department patient visit Chalon Rosaline Facility:[facility] Start: 10-05-2024 End: 10-05-2024 ambulatory DAVID ROCHA Facility:[facility] Start: 10-05-2024 End: 10-05-2024 Patient encounter procedure David Rocha MD Work Phone: [facility] Comment on above: Influenza-like illne ss (Primary Dx); Nausea Start: 10-04-2024 ambulatory Chalon Rosaline Facility:[facility] Start: 07-30-2024 End: 07-30-2024 ambulatory Chalon Rosaline Facility:[facility] Start: 06-20-2024 End: 06-20-2024 ambulatory Chalon Rosaline Facility:[facility] Start: 05-31-2024 End: 05-31-2024 ambulatory Chalon Rosaline Facility:[facility] Start: 05-31-2024 End: 05-31-2024 ambulatory Chalon Rosaline Facility:[facility] Start: 05-30-2024 End: 05-30-2024 ambulatory Chalon Rosaline Facility:[facility] Start: 05-17-2024 ambulatory Chalon Rosaline [facility] Start: 04-22-2024 End: 04-22-2024 ambulatory Chalon Rosaline Facility:[facility] Start: 04-16-2024 ambulatory Willie Friend Facility :[facility] Start: 04-16-2024 End: 04-16-2024 ambulatory Chalon Rosaline Facility:[facility] Start: 02-16-2024 End: 02-16-2024 ambulatory Chalon Rosaline Facility:[facility] Start: 02-16-2024 End: 02-16-2024 ambulatory Chalon Rosaline Facility:[facility] Start: 12-19-2023 ambulatory Chalon Rosaline Facility:[facility] Start: 12-19-2023 End: 12-19-2023 ambulatory Chalon Rosaline Facility:[facility] Start: 11-27-2023 End: 11-27-2023 ambulatory Chalon Rosaline [facility] Start: 10-27-2023 End: 10-27-2023 ambulatory Balaji Avitia Facility:[facility] Start: 10-26-2023 End: 10-26-2023 ambulatory Chalon Rosaline Facility:[facility] Start: 01-17-2023 End: 01-17-2023 ambulatory [facility] Work Phone: Start: 01-17-2023 End: 01-17-2023 Patient encounter procedure [facility] Work Phone: Start: 09-15-2022 End: 09-15-2022 ambulatory DO Roxanna Lemus Work Phone: [facility] Work Phone: Start: 09-15-2022 End: 09-15-2022 Patient encounter procedure DO Roxanna Lemus Work Phone: [facility] Work Phone: Start: 07-25-2022 End: 07-25-2022 Patient encounter procedure DO Roxanna Lemus Work Phone: [facility] Work Phone: Start: 07-19-2022 Registered Recurring DO Mavis Lemus Work Phone: [facility] Start: 07-19-2022 End: 07-19-2022 Patient encounter procedure DO Roxanna Lemus Work Phone: [facility] Work Phone: Start: 07-14-2022 Non-patient / Non-visit DO Abhijit Lemus Work Phone: [facility] Start: 07-05-2022 End: 07-05-2022 ambulatory [facility] Work Phone: Start: 07-05-2022 End: 07-05-2022 Patient encounter procedure [facility] Start: 06-21-2022 End: 06-21-2022 ambulatory [facility] Work Phone: Start: 06-21-2022 End: 06-21-2022 Patient encounter procedure [facility]-Outpatient Bone Densitometry Start: 06-07-2022 End: 06-07-2022 Patient encounter procedure [facility] Start: 06-29-2021 End: 06-29-2021 Patient encounter procedure [facility] Procedures Date Procedure Procedure Detail Performing Clinician Start: 01-17-2023 Computed tomography of abdomen and pelvis with contrast Start: 06-21-2022 Dual energy X-ray absorptiometry Start: 06-29-2021 Radiography of ankle Plan of Treatment Date Care Activity Detail Author Start: 11-27-2024 Urine microalbumin profile DTaP,Tdap,Td Vaccine (2 - Td or Tdap) [facility] Start: 11-04-2024 Influenza vaccination Influenza Vacc ine (#1) [facility] Start: 03-06-2024 Advance Directive Discussion Advance Directive Discussion [facility] Start: 02-09-2022 Shingrix Vaccine (2 of 2) Salguero grix Vaccine (2 of 2) [facility] Start: 07-28-2003 Screening for osteoporosis Bone Density Screening [facility] Start: 07-28-1983 Diabetes Screening Diabetes Screenin g [facility] Start: 1958 Anxiety Screening Anxiety Screening [facility] Start: 1958 Depression Screening Depression Scre ening [facility] CBC W Auto Different ial panel - Blood [facility] Ferritin [Mass/volum e] in Serum or Plasma [facility] Folate [Mass/volume] in Serum or Plasma [facility] Iron and Iron bindin g capacity panel - Serum or Plasma [facility] Lactate dehydrogenas e measurement [facility] Vitamin B12 measurement [facility] Immunizations Immunization Date Immunization Notes Care Provider Marilia stephenson 11-28-2023 influenza virus vaccine, unspecified formulation David Rocha MD Work Phone: [facility] 05-08-2020 Covid (Moderna) [facility] 04-10-2020 Covid (Moderna) [facility] 11-05-2015 Influenza virus vaccine [facility] Payers Date Payer Category Payer Private Health Insurance [facility] Member Subscriber Plan / Payer (Effective 2024-Present) Name: Alison Santacruz Relation to Subscriber: Self Name: Alison Santacruz Payer ID: [id number] (NAIC) Group ID: Not on file Type: Karyn Address: [facility] [address] [place] [id number] 2023 Self-pay [id number] 2023 Unknown [id number] 2003 Medicare [id number] Unknown [id number] .462 Unknown [id number] .[id number] .462 Unknown [id number] .[id number] .462 Unknown [id number] 2.16.840.1.563275.3.579.2 .462 Unknown [id number] 2.16.840.1.733597.3.579.2 .462 Unknown [id number] 2.16.840.1.004849.3.579.2 .462 Unknown [id number] 2.16.840.1.824536.3.579.2 .462 Unknown [id number] 2.16.840.1.741907.3.579.2 .462 Unknown [id number] 2.16.840.1.141066.3.579.2 .462 Unknown [id number] 2.16.840.1.066133.3.579.2 .462 Unknown [id number] 2.16.840.1.402667.3.579.2 .462 Unknown [id number] 2.16.840.1.696944.3.579.2 .462 Unknown [id number] 2.16.840.1.698655.3.579.2 .462 Unknown [id number] 2.16.840.1.783942.3.579.2 .462 Unknown [id number] 2.16.840.1.784257.3.579.2 .462 Unknown [id number] 2.16.840.1.706635.3.579.2 .462 Unknown [id number] 2.16.840.1.991906.3.579.2 .462 Unknown [id number] 2.16.840.1.024179.3.579.2 .462 Unknown [id number] 2.16.840.1.098506.3.579.2 .462 Social History Date Type Detail Facility Start: 07-04-2016 End: 07-19-2022 Tobacco smoking status MEIS Unknown if ever smoked [facility] Start: 1940 Sex Assigned At Female [facility] Start: 1940 Sex assigned at Not on file [facility] Gender identity Not on file [facility] in [place] note 10-05-2024 Note Date & Type Note Facility 10-05-2024 Note HNO ID: [id number] Author: DAVID ROCHA MD Service: ? Author [...] for the following reason(s): Benign exam Procedures [facility] History of Present illness Narrative 10-05-2024 [...] Benign exam Procedures documented in this encounter [facility] Clinical Note 04-16-2024 Note Date & Type Note Facility 04-16-2024 Note [facility] Medical Records Department [address] [place] [address] History Physical Exam 04/16/24 1511 MR#: [id number] Acct: [id number] Name: ALISON SANTACRUZ Rep #: [id number] : 1940 83 From: Willie Friend DO PCP: Dr. Eddie Waggoner MD Status:[facility] Location: AC AC10-1 HPI - General [...] stop this. She feels weak and fatigued. [facility] Medical History Arthritis Gastric reflux Wears hearing [...] DAILY 07/14/22 12/15/23 Hi story glucosamine 750 vq-dgezjiilaao-dwc 1 tab PO DAILY 07/14/22 04/15/24 History [...] Verified 04/16/24 13:29 paroxetine (From Paxil) AdvReac [place] poorly Verified 04/16/24 13:29 rosuvastatin (From Crestor) [...] rectal bleeding, tenes (more content not included)... [facility] Clinical Note 12-19-2023 Note Date & Type Note Facility 12-19-2023 Note [facility] Medical Records Department [address] [place] [address] History Physical Exam 12/19/23 1425 MR#: [id number] Acct: [id number] Name: ALISON SANTACRUZ Rep #: [id number] : 1940 83 From: Willie Friend DO PCP: Dr. Eddie Waggoner MD Status:[facility] Location: [place] [address] History and Physical Date of Admission: 12/19/23 OV 11.27.23 Pt reports that she is here to discuss possible hemorrhoid banding. Pt states that she has a terrible time going to the bathroom and does not want to continues having to take as many laxatives and stool softeners as she is. States that her last colonoscopy was 7-8 years ago. [facility] Medical History Abnormal EKG Varicose veins of [...] to the office today for establishment with [facility]. Pt has a PMHx of valvular heart [...] Appearance: average body habitus and well nourished [facility] Head: normal to inspection Ears: hearing grossly [...] recommended she sta (more content not included)... [facility] Evaluation note Note Date & Type Note Facility Evaluation note No assessment information availa ble [facility] Work Phone: Evaluation note Note Date & Type Note Facility Evaluation note Diagnosis Onset Date Leukopenia resolved Leukopenia resolved [facility] Work Phone: Evaluation note Note Date & Type Note Facility Evaluation note Diagnosis Influenza-like illness- Primary Influenza with other respiratory manifestations Nausea Nausea alone documented in this encounter [facility] Chief Complaint and Reason for Visit Chief Complaint RIGHT ANKLE Chief Complaint OSTEO Chief Complaint OSTEO Amb Documentation NEW PT - LEUKOPENIA lab 1WK REVIEW LABS E ORDER Reason for Visit Leukopenia Leukopenia Chief Complaint RLQ ABD PAIN/ ADD LA BWORK FOR @[facility] Advance Directives No Advanced Directives Records Found Advance Directive Response Recorded Date/ Time Living Will Yes July 20, 2016 1 0:50am Power of Sales Team Manager Yes July 20, 2016 10:50am Advance Directive Response Recorded Date/ Time Living Will Yes July 20, 2016 9 :50am Power of Sales Team Manager Yes July 20, 2016 9:50am Family History [...] or prosecute any alcohol or drug abuse patient.[facility] Reason for Visit (unrecogniz ed section and content) Reason Comments Flu Like Symptoms X 3 days-diarrhea, s tomach hurts, nausea, hot and feels dizzy INFORMATION SOURCE (unrecogn ized section and content) DATE CREATED AUTHOR 10/07/2024 [facility] DATE CREATED AUTHOR AUTHOR'S ORGANIZ ATION 10/07/2024 [facility] FOR RECORDS PERTAINING TO PATIENTS WHO ARE [...] BE BASED ON THE PRIMARY CLINICAL RECORDS. el? [facility]. provides no warranty or guarantee of the accuracy or completeness of information in this document.
== END | disposition home or self-care (01) ==
LOC: LAB 11:13
PROVIDERS: PCP Family Medicine; Referring Provider Student in an Organized Health Care Education/Training Program; Visit Provider Student in an Organized Health Care Education/Training Program
DX: R10.9 Unspecified abdominal pain (principal); R11.0 Nausea
CPT/HCPCS: 36415; 80053; 85025

== ENCOUNTER → 2024-10-12 | Outpatient (CLI) | payer MEDICARE, OTHER, SELFPAY ==
--- OUTSIDE RECORDS SUMMARY | 2024-10-12 09:26 | XMS RPT_ITS | CCD ---
Author Organization [facility] Care Team Providers Care Sewer Connector Name Role Phone DO Roxanna Lemus Primary Care Provider [phone] Radha Ascencio Attending Provider UnavailDO Roxanna Holguin Referring Provider Dr. Vernon Garrett Attending Provider Unavailable Primary [...] Attending Unavailable Rosaline, Chalon Primary Care Unavailable BladimirnasRajwinder calderon Attending Unavailable BladimirnasovRajwinder Referring Unavailable Rosaline, Chalon [...] Triiodobenzoic Acids Allergy to substance 06-30-19 Rash [facility] (2 sources) atorvastatin Drug Allergy 07-26-19 Upset Stomach [facility] (2 sources) PARoxetine Drug Allergy 07-26-19 Sandy poorly [facility] (2 sources) rosuvastatin Drug Allergy 07-26-19 Upset Stomach [facility] (2 sources) Simvastatin Drug Allergy 07-26-19 Upset Stomach [facility] (2 sources) HMG-CoA reductase inhibitor; Translations: [OUZOMSX-GFG-OSJ REDUCTASE INHIBITORS] Drug Intolerance 10-06-19 Intolerance [facility] (1 source) atorvastatin Drug Allergy 10-07-19 [facility] (1 source) buPROPion Drug Allergy 10-07-19 [facility] (1 source) PARoxetine Drug Allergy 10-07-19 [facility] (1 source) rosuvastatin Drug Allergy 10-07-19 [facility] (1 source) Sertraline Drug Allergy 10-07-19 [facility] (1 source) Simvastatin Drug Allergy 10-07-19 [facility] (1 source) Iodinated Contrast Media Drug allergy (disorder) 10-07-19 [facility] Medications Current Medications Medication Drug [...] MG PO DAILY July 13, 2022 11:00pm Tropohax-Znuu-Urf9-C- Liset-Bosw (Osteo Bi-Flex Triple Strength) 1 EACH tablet (5 sources) Start: 07-04-2016 take 1 tablet by mouth once daily Edcuojbu-Isdc-Aow1-C- Liset-Bosw (Osteo Bi-Flex Triple Strength) 1 EACH tablet Active 2 EACH PO DAILY July 04, 2016 10:20am Start: 07-04-2016 End: 07-14-2022 take 1 tablet by mouth once daily Fimhgszk-Bscq-Umx3-C-Liset-Bosw (Osteo Bi -Flex Triple Strength) 1 EACH tablet Discontinued 2 EACH PO DAILY July 03, 2016 11:00pm July 14, 2022 7:42am Start: 07-04-2016 End: 07-14-2022 take 1 tablet by mouth once daily Rbkdpwrl-Hvgu-Oml4-C-Liset-Bosw (Osteo Bi -Flex Triple Strength) 1 EACH tablet Discontinued 2 EACH PO DAILY July 04, 2016 12:00am July 14, 2022 8:42am Start: 07-04-2016 take 1 tablet by edna th once daily Dqegnvce-Yuuy-Vpv6-C-Liset-Bosw (Osteo Bi -Flex Triple Strength) 1 EACH tablet Active 2 EACH PO DAILY July 04, 2016 12:00am Qxtgfjod-Ruah-Pyj1-C-Liset-Osmany sw (Osteo Bi-Flex Triple Strength) 750 mg-644 mg- 30 mg-1 mg tablet (2 sources) Start: 07-14-2022 take 1 tablet by mouth once daily Sbrplcas-Aoxu-Rwx1-C-Liset-Bosw (Osteo Bi-Flex Triple Strength) 750 mg-644 mg- 30 mg-1 mg tablet Active 1 TABLET PO DAILY July 14, 2022 7:40am Start: 07-14-2022 take 1 tablet by edna th once daily Nizhofqj-Etpu-Rhz3-C-Liset-Bosw (Osteo Bi -Flex Triple Strength) 750 mg-644 [...] 11:00pm Start: 07-14-2022 [facility] Multivitamin Active 1 TABLET PO DAILY July 14, 2022 12:00am [place] 0-Tnb-Xdr-Fish Oil (Fish Oil) 60-90-500 mg capsule (2 sources) Start: 07-14-2022 take 1 capsule by mouth once daily [place] 2-Wgm-Dlj-Fish Oil (Fish Oil) 60-90-500 mg capsule Active 1 CAP PO DAILY July 13, 2022 11:00pm Start: 07-14-2022 take 1 capsule by mo [facility] once daily [place] 3-Zvj-Fan-Fish Oil (Fish Oil) 60-90-500 mg capsule Active [...] 7:42am docusate sodium 50 mg / sennosides, mcfp 8.6 mg oral tablet (10 sources) Start: [...] Yon 10-06-2024 Abdomen/Pelvis W IV Cont ONLY [facility] [address] [place] [id number] Abdomen/Pelvis W IV Cont ONLY MR#: [id number] Acct: [id number] Name: ALISON SANTACRUZ Rep #: [id number] : 1940 F 84 From: Milo Holloway DO PCP: Dr. Eddie Waggoner MD Status: REG ER Study: Abdomen/Pelvis W IV Cont ONLY Date of Exam: Exam# [id number] Ordering Dr: Chris Phillips DO PROCEDURE: ABDOMEN/PELVIS [...] findings as above. Reading Location: [facility] CC: Dr. Chris Phillips DO; Dr. Eddie Waggoner MD Hatchery Attendant: Signed Normal [facility] CBC W/Diff, Automatedon Absolute Lymph 1.12 X10 3/uL Normal 0.83-4.51 [facility] Comment on above: Performed By: #### L 100.0100, L501.2450, L500.4050 #### [facility] [address] [place], [address] Absolute Neut 2.7 X10 3/uL Normal 2.0-7.7 [facility] Comment on above: Performed By: #### L 100.0100, L501.2450, L500.4050 #### [facility] [address] [place], [address] Basophils/100 WBC (Bld) 0.7 % Normal 0-1 [facility] Comment on above: Performed By: #### L 100.0100, L501.2450, L500.4050 #### [facility] [address] [place], [address] Eosinophils/100 WBC (Bld) 3.5 % Normal 0-5 [facility] Comment on above: Performed By: #### L 100.0100, L501.2450, L500.4050 #### [facility] [address] [place], [address] Erythrocyte distribution width (RBC) [Ratio] 11.9 % Normal 11.6-14.6 [facility] Comment on above: Performed By: #### L 100.0100, L501.2450, L500.4050 #### [facility] [address] [place], [address] Hematocrit (Bld) [Volume fraction] 34.6 % Low 37-47 [facility] Comment on above: Performed By: #### L 100.0100, L501.2450, L500.4050 #### [facility] [address] [place], [address] Hemoglobin (Bld) [Mass/Vol] 12.0 g/dL Normal 12.0-15.0 [facility] Comment on above: Performed By: #### L 100.0100, L501.2450, L500.4050 #### [facility] [address] [place], [address] IG% 0.500 Normal 0.0-0.9 [facility] Comment on above: Result Comment: IG% - Immature Granulocytes (promyelocytes, myelocytes and metamyelocytes) > 1% indicates that a LEFT SHIFT is Present. Performed By: #### L 100.0100, L501.2450, L500.4050 #### [facility] [address] [place], [address] Lymphocytes/100 WBC (Bld) 26.3 % Normal 19-41 [facility] Comment on above: Performed By: #### L 100.0100, L501.2450, L500.4050 #### [facility] [address] [place], [address] MCH (RBC) [Entitic mass] 30.9 pg Normal 27.0-32.0 [facility] Comment on above: Performed By: #### L 100.0100, L501.2450, L500.4050 #### [facility] [address] [place], [address] MCHC (RBC) [Mass/Vol] 34.7 g/dL Normal 32-36 [facility] Comment on above: Performed By: #### L 100.0100, L501.2450, L500.4050 #### [facility] [address] [place], [address] MCV (RBC) [Entitic vol] 89.2 fL Normal 81-99 [facility] Comment on above: Performed By: #### L 100.0100, L501.2450, L500.4050 #### [facility] [address] [place], [address] Monocytes/100 WBC (Bld) 6.3 % Normal 0-10 [facility] Comment on above: Performed By: #### L 100.0100, L501.2450, L500.4050 #### [facility] [address] [place], [address] Neutrophils/100 WBC (Bld) 62.7 % Normal 47-70 [facility] Comment on above: Performed By: #### L 100.0100, L501.2450, L500.4050 #### [facility] [address] [place], [address] Nucleated RBC (Bld) [#/Vol] 0 10*3/uL Normal 0-5 [facility] Comment on above: Performed By: #### L 100.0100, L501.2450, L500.4050 #### [facility] [address] [place], [address] Platelet mean volume (Bld) [Entitic vol] 8.3 fL Normal 6.2-12.0 [facility] Comment on above: Performed By: #### L 100.0100, L501.2450, L500.4050 #### [facility] [address] [place], [address] Platelets (Bld) [#/Vol] 170 10*3/uL Normal 150-450 [facility] Comment on above: Performed By: #### L 100.0100, L501.2450, L500.4050 #### [facility] [address] [place], [address] RBC (Bld) [#/Vol] 3.88 10*6/uL Low 4.2-5.4 [facility] Comment on above: Performed By: #### L 100.0100, L501.2450, L500.4050 #### [facility] [address] [place], [address] RDW SD 38.3 fl Normal 35.1-43.9 [facility] Comment on above: Performed By: #### L 100.0100, L501.2450, L500.4050 #### [facility] [address] [place], [address] WBC (Bld) [#/Vol] 4.3 10*3/uL Low 4.4-11.0 [facility] Comment on above: Performed By: #### L 100.0100, L501.2450, L500.4050 #### [facility] [address] [place], [address] Comprehensive Metabolic Prof ilon 10-06-2024 Albumin [Mass/Vol] 4.4 g/dL Normal 3.4-4.8 [facility] Comment on above: Performed By: #### L 100.0100, L501.2450, L500.4050 #### [facility] [address] [place], [address] Albumin/Globulin [Mass ratio] 1.9 {ratio} Normal 0.9-2.4 [facility] Comment on above: Performed By: #### L 100.0100, L501.2450, L500.4050 #### [facility] [address] [place], [address] ALK PHOS 73 U/L Normal 35-104 [facility] Comment on above: Performed By: #### L 100.0100, L501.2450, L500.4050 #### [facility] [address] [place], [address] ALT [Catalytic activity/Vol] 16 U/L Normal <=34 [facility] Comment on above: Performed By: #### L 100.0100, L501.2450, L500.4050 #### [facility] [address] [place], [address] AST [Catalytic activity/Vol] 18 U/L Normal <=31 [facility] Comment on above: Performed By: #### L 100.0100, L501.2450, L500.4050 #### [facility] [address] [place], [address] Bilirubin [Mass/Vol] 0.77 mg/dL Normal 0.00-1.30 [facility] Comment on above: Performed By: #### L 100.0100, L501.2450, L500.4050 #### [facility] [address] [place], [address] BUN/CRE 15.2 RATIO Normal 10-20 [facility] Comment on above: Performed By: #### L 100.0100, L501.2450, L500.4050 #### [facility] [address] [place], [address] Calcium [Mass/Vol] 9.1 mg/dL Normal 7.6-11.0 [facility] Comment on above: Performed By: #### L 100.0100, L501.2450, L500.4050 #### [facility] [address] [place], [address] Chloride [Moles/Vol] 100 mmol/L Normal 98-108 [facility] Comment on above: Performed By: #### L 100.0100, L501.2450, L500.4050 #### [facility] [address] [place], [address] CO2 [Moles/Vol] 25.6 mmol/L Normal 21.0-32.0 [facility] Comment on above: Performed By: #### L 100.0100, L501.2450, L500.4050 #### [facility] [address] [place], [address] Creatinine [Mass/Vol] 0.83 mg/dL Normal 0.70-1.20 [facility] Comment on above: Performed By: #### L 100.0100, L501.2450, L500.4050 #### [facility] [address] [place], [address] ECRCL 49.58 ml/min Low 50-250 [facility] Comment on above: Performed By: #### L 100.0100, L501.2450, L500.4050 #### [facility] [address] [place], [address] GAP 11 Normal 5-15 [facility] Comment on above: Performed By: #### L 100.0100, L501.2450, L500.4050 #### [facility] [address] [place], [address] GFR/1.73 sq M.predicted among non-blacks MDRD (S/P/Bld) [Vol rate/Area] 69 mL/min/{1.73_m2} Normal >60 [facility] Comment on above: Result Comment: mL/m in/1.73m2 CKD-EPI Creatinine Equation (2020) Performed By: #### L 100.0100, L501.2450, L500.4050 #### [facility] [address] [place], [address] Globulin (S) [Mass/Vol] 2.4 g/dL Normal 2.2-4.2 [facility] Comment on above: Performed By: #### L 100.0100, L501.2450, L500.4050 #### [facility] [address] [place], [address] Glucose [Mass/Vol] 121 mg/dL High 70-99 [facility] Comment on above: Performed By: #### L 100.0100, L501.2450, L500.4050 #### [facility] [address] [place], [address] Potassium [Moles/Vol] 4.0 mmol/L Normal 3.3-5.1 [facility] Comment on above: Performed By: #### L 100.0100, L501.2450, L500.4050 #### [facility] [address] [place], [address] Sodium [Moles/Vol] 137 mmol/L Normal 133-145 [facility] Comment on above: Performed By: #### L 100.0100, L501.2450, L500.4050 #### [facility] [address] [place], [address] T PROT 6.8 g/dL Normal 5.9-8.4 [facility] Comment on above: Performed By: #### L 100.0100, L501.2450, L500.4050 #### [facility] [address] [place], [address] Urea nitrogen [Mass/Vol] 13 mg/dL Normal 4-19 [facility] Comment on above: Performed By: #### L 100.0100, L501.2450, L500.4050 #### [facility] [address] [place], [address] Emergency Department Summary on 10-06-2024 Emergency Department Summary [facility] Medical Records Department [address] [place] [address] Emergency Department Summary 10/06/24 MR#: [id number] Acct: [id number] Name: ALISON SANTACRUZ Rep #: [id number] : 1940 84 From: Chris Phillips DO [...] intact Psych: Cooperative, appropriate mood and affect [facility] Medical History Arthritis Gastric reflux Wears [...] DAILY 07/14/22 12/15/23 Hi story glucosamine 750 wv-aukibyyzazt-mfj 1 tab PO DAILY 07/14/22 04/15/24 History [...] AdvReac Fel (more content not included)... Normal [facility] Lipaseon 10-06-2024 Lipase [Catalytic activity/Vol] 23 U/L Normal 13-75 [facility] Comment on above: Result Comment: Yuko joseph note: LIPASE revised reference range effective 22. New Lipase methodology. Expected to produce lower values than the previous assay method. NEW Reference Range: 13 - 75 U/L Performed By: #### L 100.0100, L501.2450, L500.4050 #### [facility] [address] [place], [address] Stool Occult Blood iFOBon STOB Positive Normal [facility] Comment on above: Performed By: #### P H.PYLORI #### [facility] [address] [place], [address] Urinalysis, Completeon 10-06 BACTERIA 0 SEEN Normal None Seen [facility] Comment on above: Order Comment: ONESIMO ELLISOR TO SPECIFY Performed By: #### P H.PYLORI #### [facility] [address] [place], [address] EPI,SQUAMOUS 0 SEEN Normal 5-10 [facility] Comment on above: Order Comment: ONESIMO CTOR TO SPECIFY Performed By: #### P H.PYLORI #### [facility] [address] [place], [address] Mucus Ql (Urine sed) 0 SEEN Normal [facility] Comment on above: Order Comment: ONESIMO CTOR TO SPECIFY Performed By: #### P H.PYLORI #### [facility] [address] [place], [address] RBC 0 SEEN Normal 0-5 [facility] Comment on above: Order Comment: ONESIMO CTOR TO SPECIFY Performed By: #### P H.PYLORI #### [facility] [address] [place], [address] WBC 0 SEEN Normal 0-5 [facility] Comment on above: Order Comment: ONESIMO CTOR TO SPECIFY Performed By: #### P H.PYLORI #### [facility] [address] [place], [address] CNOVon 10-05-2024 CNOV Office Visit ([facility]) -------- ALISON SANTACRUZ ([id number]) 1940 F Date Time Provider Department 10/05/24 [...] As of Date: 10/05/2024 Noted Allergy Reaction GAKOZNC-XWH-TPL REDUCTASE INHIBIT*10/05/2024 5 - Intolerance Date Reviewed: [...] Status:Closed by DAVID ROCHA on 10/05/24 Normal [facility] Shoulder min 2 Viewson 07-30 Shoulder min 2 Views [facility] [address] [place] [address] Shoulder min 2 Views MR#: [id number] Acct: [id number] Name: ALISON SANTACRUZ Rep #: [id number] : 1940 F 84 From: Zbigniew Martinez MD PCP: Dr. Eddie Waggoner MD Status: REG CLI Study: Shoulder min 2 Views Date of Exam: 07/30/24 Exam# [id number] Ordering Dr: Eddie Waggoner MD PROCEDURE: SHOULDER MIN 2 VIEWS 07/30/2024 REASON FOR EXAM: SHOULDER PAIN X 1 MONTH, NO INJURY TECHNIQUE: Four views right shoulder COMPARISON: None available FINDINGS: No fracture or dislocation. Mild glenohumeral joint osteoarthrosis. Eymo-gn-qbxuhrpi acromioclavicular joint osteoarthrosis with a downward directed osteophyte at the distal clavicle suggested. Visualized right lung appears clear. RAD/Shoulder min 2 Views IMPRESSION: Osteoarthrosis as above. Reading Location: [facility] CC: Dr. Eddie Waggoner MD Hatchery Attendant: Signed Normal [facility] Abdomen/Pelvis WITH Contrast on 06-20-2024 Abdomen/Pelvis WITH Contrast [facility] [address] [place] [address] Abdomen/Pelvis WITH Contrast MR#: [id number] Acct: [id number] Name: ALISON SANTACRUZ Rep #: [id number] : 1940 F 83 From: Celia lance MD PCP: Dr. Eddie Waggoner MD Status: REG CLI Study: Abdomen/Pelvis WITH Contrast Date of Exam: Exam# [id number] Ordering Dr: Rajwinder Luis PROCEDURE: ABDOMEN/PELVIS WITH [...] cystitis. 12. Moderate diffuse spondylosis. Reading Location: [place] [address] CC: Dr. Eddie Waggoner MD; LIZZETTE Edwards Hatchery Attendant: Signed Normal [facility] CBC W/Diff, Automatedon 03-2 Absolute Lymph 0.99 X10 3/uL Normal 0.83-4.51 [facility] Comment on above: Performed By: #### L 501.2450, L100.0100, L500.4050 ####[facility] [address] [place], [address] Absolute Neut 1.6 X10 3/uL Low 2.0-7.7 [facility] Comment on above: Performed By: #### L 501.2450, L100.0100, L500.4050 ####[facility] [address] [place], [address] Basophils/100 WBC (Bld) 1.6 % High 0-1 [facility] Comment on above: Performed By: #### L 501.2450, L100.0100, L500.4050 ####[facility] [address] [place], [address] Eosinophils/100 WBC (Bld) 7.2 % High 0-5 [facility] Comment on above: Performed By: #### L 501.2450, L100.0100, L500.4050 ####[facility] [address] [place], [address] Erythrocyte distribution width (RBC) [Ratio] 12.0 % Normal 11.6-14.6 [facility] Comment on above: Performed By: #### L 501.2450, L100.0100, L500.4050 ####[facility] [address] [place], [address] Hematocrit (Bld) [Volume fraction] 37.2 % Normal 37-47 [facility] Comment on above: Performed By: #### L 501.2450, L100.0100, L500.4050 ####[facility] [address] [place], [address] Hemoglobin (Bld) [Mass/Vol] 12.9 g/dL Normal 12.0-15.0 [facility] Comment on above: Performed By: #### L 501.2450, L100.0100, L500.4050 ####[facility] [address] [place], [address] IG% 0.600 Normal 0.0-0.9 [facility] Comment on above: Result Comment: IG% - Immature Granulocytes (promyelocytes, myelocytes and metamyelocytes) > 1% indicates that a LEFT SHIFT is Present. Performed By: #### L 501.2450, L100.0100, L500.4050 ####[facility] [address] [place], [address] Lymphocytes/100 WBC (Bld) 31.1 % Normal 19-41 [facility] Comment on above: Performed By: #### L 501.2450, L100.0100, L500.4050 ####[facility] [address] [place], [address] MCH (RBC) [Entitic mass] 30.6 pg Normal 27.0-32.0 [facility] Comment on above: Performed By: #### L 501.2450, L100.0100, L500.4050 ####[facility] [address] [place], [address] MCHC (RBC) [Mass/Vol] 34.7 g/dL Normal 32-36 [facility] Comment on above: Performed By: #### L 501.2450, L100.0100, L500.4050 ####[facility] [address] [place], [address] MCV (RBC) [Entitic vol] 88.4 fL Normal 81-99 [facility] Comment on above: Performed By: #### L 501.2450, L100.0100, L500.4050 ####[facility] [address] [place], [address] Monocytes/100 WBC (Bld) 10.1 % High 0-10 [facility] Comment on above: Performed By: #### L 501.2450, L100.0100, L500.4050 ####[facility] [address] [place], [address] Neutrophils/100 WBC (Bld) 49.4 % Normal 47-70 [facility] Comment on above: Performed By: #### L 501.2450, L100.0100, L500.4050 ####[facility] [address] [place], [address] Nucleated RBC (Bld) [#/Vol] 0 10*3/uL Normal 0-5 [facility] Comment on above: Performed By: #### L 501.2450, L100.0100, L500.4050 ####[facility] [address] [place], [address] Platelet mean volume (Bld) [Entitic vol] 8.7 fL Normal 6.2-12.0 [facility] Comment on above: Performed By: #### L 501.2450, L100.0100, L500.4050 ####[facility] [address] [place], [address] Platelets (Bld) [#/Vol] 178 10*3/uL Normal 150-450 [facility] Comment on above: Performed By: #### L 501.2450, L100.0100, L500.4050 ####[facility] [address] [place], [address] RBC (Bld) [#/Vol] 4.21 10*6/uL Normal 4.2-5.4 [facility] Comment on above: Performed By: #### L 501.2450, L100.0100, L500.4050 ####[facility] [address] [place], [address] RDW SD 38.6 fl Normal 35.1-43.9 [facility] Comment on above: Performed By: #### L 501.2450, L100.0100, L500.4050 ####[facility] [address] [place], [address] WBC (Bld) [#/Vol] 3.2 10*3/uL Low 4.4-11.0 [facility] Comment on above: Performed By: #### L 501.2450, L100.0100, L500.4050 ####[facility] [address] [place], [address] Comprehensive Metabolic Prof ilon 05-31-2024 Albumin [Mass/Vol] 4.6 g/dL Normal 3.4-4.8 [facility] Comment on above: Performed By: #### L 501.2450, L100.0100, L500.4050 ####[facility] [address] [place], [address] Albumin/Globulin [Mass ratio] 2.0 {ratio} Normal 0.9-2.4 [facility] Comment on above: Performed By: #### L 501.2450, L100.0100, L500.4050 ####[facility] [address] [place], [address] ALK PHOS 70 U/L Normal 35-104 [facility] Comment on above: Performed By: #### L 501.2450, L100.0100, L500.4050 ####[facility] [address] [place], [address] ALT [Catalytic activity/Vol] 15 U/L Normal <=34 [facility] Comment on above: Performed By: #### L 501.2450, L100.0100, L500.4050 ####[facility] [address] [place], [address] AST [Catalytic activity/Vol] 21 U/L Normal <=31 [facility] Comment on above: Performed By: #### L 501.2450, L100.0100, L500.4050 ####[facility] [address] [place], [address] Bilirubin [Mass/Vol] 0.94 mg/dL Normal 0.00-1.30 [facility] Comment on above: Performed By: #### L 501.2450, L100.0100, L500.4050 ####[facility] [address] [place], [address] BUN/CRE 16.8 RATIO Normal 10-20 [facility] Comment on above: Performed By: #### L 501.2450, L100.0100, L500.4050 ####[facility] [address] [place], [address] Calcium [Mass/Vol] 9.5 mg/dL Normal 7.6-11.0 [facility] Comment on above: Performed By: #### L 501.2450, L100.0100, L500.4050 ####[facility] [address] [place], [address] Chloride [Moles/Vol] 103 mmol/L Normal 98-108 [facility] Comment on above: Performed By: #### L 501.2450, L100.0100, L500.4050 ####[facility] [address] [place], [address] CO2 [Moles/Vol] 22.3 mmol/L Normal 21.0-32.0 [facility] Comment on above: Performed By: #### L 501.2450, L100.0100, L500.4050 ####[facility] [address] [place], [address] GAP 15 Normal 5-15 [facility] Comment on above: Performed By: #### L 501.2450, L100.0100, L500.4050 ####[facility] [address] [place], [address] GFR/1.73 sq M.predicted among non-blacks MDRD (S/P/Bld) [Vol rate/Area] 67 mL/min/{1.73_m2} Normal >60 [facility] Comment on above: Result Comment: mL/m in/1.73m2 CKD-EPI Creatinine Equation (2020) Performed By: #### L 501.2450, L100.0100, L500.4050 ####[facility] [address] [place], [address] Globulin (S) [Mass/Vol] 2.3 g/dL Normal 2.2-4.2 [facility] Comment on above: Performed By: #### L 501.2450, L100.0100, L500.4050 ####[facility] [address] [place], [address] Potassium [Moles/Vol] 4.1 mmol/L Normal 3.3-5.1 [facility] Comment on above: Performed By: #### L 501.2450, L100.0100, L500.4050 ####[facility] [address] [place], [address] Sodium [Moles/Vol] 140 mmol/L Normal 133-145 [facility] Comment on above: Performed By: #### L 501.2450, L100.0100, L500.4050 ####[facility] [address] [place], [address] T PROT 6.9 g/dL Normal 5.9-8.4 [facility] Comment on above: Performed By: #### L 501.2450, L100.0100, L500.4050 ####[facility] [address] [place], [address] Creatinine [Mass/Vol] 0.85 mg/dL Normal 0.70-1.20 [facility] Comment on above: Performed By: #### L 501.2450, L100.0100, L500.4050 ####[facility] [address] [place], [address] Glucose [Mass/Vol] 97 mg/dL Normal 70-99 [facility] Comment on above: Performed By: #### L 501.2450, L100.0100, L500.4050 ####[facility] [address] [place], [address] Urea nitrogen [Mass/Vol] 14 mg/dL Normal 4-19 [facility] Comment on above: Performed By: #### L 501.2450, L100.0100, L500.4050 ####[facility] [address] [place], [address] Gastroenterology Visit Repor ton 05-31-2024 Gastroenterology Visit Report [facility] Gastroenterology [address] [place] [address] OFFICE VISIT Date of Service: 05/31/24 MR#: [id number] Acct: [id number] Name: ALISON SANTACRUZ Rep #: [id number] : 1940 Provider: LIZZETTE Edwadrs Age/Sex: 83/F Location[place] [facility] Status: Signed Intake Vital Signs 04/16/24 13:36 Height 5 ft 6 in Intake Visit Reasons: Ongoing issues Chief Complaint: abdominal pain Allergies Iodinated Contrast Media Allergy (Verified 04/16/24 13:29) Rash atorvastatin (From Lipitor) Adverse Reaction (Verified 04/16/24 13:29) Upset Stomach bupropion (From Wellbutrin) Adverse Reaction (Verified 04/16/24 13:29) Other paroxetine (From Paxil) Adverse Reaction (Verified 04/16/24 13:29) Sandy poorly rosuvastatin (From Crestor) Adverse Reaction (Verified [...] gallbladder. Continues taking pantoprazole and dicyclomine daily. [facility] Medical History Arthritis Gastric reflux Wears [...] for itchy (more content not included)... Normal [facility] Lipaseon 05-31-2024 Lipase [Catalytic activity/Vol] 26 U/L Normal 13-75 [facility] Comment on above: Result Comment: Yuko joseph note: LIPASE revised reference range effective 22. New Lipase methodology. Expected to produce lower values than the previous assay method. NEW Reference Range: 13 - 75 U/L Performed By: #### L 501.2450, L100.0100, L500.4050 ####[facility] [address] [place], [address] Stool Occult Blood iFOBon STOB Negative Normal [facility] Comment on above: Performed By: #### M 100.7900 #### [facility] [address] [facility] [place], [address] Abd Inc Decub and/or Erecton 05-30-2024 Abd Inc Decub and/or Erect [facility] [address] [place], [place] [address] Abd Inc Decub and/or Erect MR#: [id number] Acct: [id number] Name: ALISON SANTACRUZ Rep #: [id number] : 1940 F 83 From: Karel Mortensen MD PCP: Dr. Eddie Waggoner MD Status: REG CLI Study: Abd Inc Decub and/or Erect Date of Exam: 05/30 Exam# [id number] Ordering Dr: Eddie Waggoner MD EXAM: XR [...] the colon consistent with constipation. Reading Location: [facility] CC: Dr. Eddie Waggoner MD Hatchery Attendant: Signed Normal [facility] Thyroid Stim Hormone (TSH)on 04-22-2024 TSH 2.120 uIU/mL Normal 0.358-3.740 [facility] Comment on above: Performed By: #### L 501.9520 #### [facility] [address] [facility] [place], [place], [address] EGD Reporton 04-16-2024 EGD Report [facility] Medical Records Department [address] [place] [address] EGD Report MR#: [id number] Acct: [id number] Name: ALISON SANTACRUZ Rep #: [id number] : 1940 83 From: Willie Shook DO PCP: Dr. Eddie Waggoner MD Status:REG [facility] Patient Name: Alison Santacruz Procedure Date: 04/16/2024 [...] pathology results. Procedure Code(s): --- Professional --- 83093, Esophagogastroduodenosco py, flexible, transoral; with biopsy, single or multiple CPT copyright 2021 [employer]. All rights reserved. The codes documented in this report are preliminary and upon hospital coder review may be revised to meet current compliance requirements. Willie Shook DO 04/16/2024 3:20:24 PM This report has been signed electronically. Number of Addenda: 0 Note Initiated On: 04/16/2024 2:52 PM 04/16/24 1520 Date Willie Shook DO Cosigner Signature: Date (if indicated) CC: Dr. Eddie Waggoner MD; Willie Shook DO Date Dictated: 04/16/24 0240 Date Transcribed: Hatchery Attendant: ES Signed Normal [facility] H Pylori (initial)on 025 H Pylori (initial) ---- Patient Age/Sex Location Account Attending Physician ALISON SANTACRUZ 83/F EN [id number] Willie Shook DO Specimen: [id number] Received: 04/17/24 Status: AKIRA Nogueraradha Num: [id number] Spec Type: IMMUNO Subm Dr: Willie Shook DO PHYSICIAN INSTITUTION [place] [address] SPECIMEN INFORMATION: Tissue Source: B- Gastric cardia biopsy, C- Distal esophagus biopsy Clinical Info: Heartburn, GERD Specimen Number: [id number] B,C CPT code: 17759v8,76241 METHODOLOGY: Deparaffinized sections of prefer/formalin-fixed tissue or [...] developed and their performance characteristics determined by [facility]. They may not have [...] Dr. Alejandro Rashid MD 04/19/24 1151 Normal [facility] Comment on above: Performed By: #### P H.PYLORI #### [facility] [address] [facility] [place], [place], [address] MR/POSTOP.Prisca 04-16-2024 MR/POSTOP.[facility] Medical Records Department [address] [place] [address] Anesthesia Postop Eval I 04/16/241517 MR#: [id number] Acct: [id number] Name: ALISON SANTACRUZ Rep #: [id number] : 1940 83 From: Jim Middleton PCP: Dr. Eddie Waggoner MD Status:REG [facility] Y Race: C Location: [place] [address] Anesthesia: Postop Eval I Current Vital Signs [...] Jim Gregg Signature: Date CC: Signed Normal [facility] MR/QQZLICGY2ql 04-16-2024 MR/POSTOPAN2 [facility] Medical Records Department [address] [place] [address] Anesthesia Postop Eval II 04/16/241830 MR#: [id number] Acct: [id number] Name: ALISON SANTACRUZ Rep #: [id number] : 1940 83 From: Olievr Kapoor MD PCP: Dr. Eddie Waggoner MD Status:DEP [facility] Y Race: C Location: EN Anesthesia Postop [...] MD Cosigner Signature: Date CC: Signed Normal [facility] Special Stain Group Ion 04-06 Special Stain Group I ------ Patient Age/Sex Location Account Attending Physician ALISON SANTACRUZ 83/F DAVID [id number] Willie Shook DO Specimen: [id number] Received: 04/17/24 Status: AKIRA Kelly Num: [id number] Spec Type: EGD BIOPSY Jana Dr: Willie [...] for Helicobacter pylori will be reported separately ([id number]). C. Alcian blue/PAS stain with matched control is used in the evaluation of the specimen. Immunohistochemistry ([id number]) for P53 and Ki-67 will be performed, [...] Account Attending Physician ALISON SANTACRUZ 83/F EN [id number] Willieonur Shook DO tissue that in aggregate [...] totally submitted in one cassette. 04/17/2024 TC:3 [facility]:[id number] Patient Age/Sex Location Account Attending Physician ALISON SANTACRUZ 83/F DAVID [id number] Willie Shook DO Signed (signature on file) Dr. Alejandro Rashid MD 04/19/24 0934 Normal [facility] Comment on above: Performed By: #### P H.PYLORI #### [facility] [address] [place], [place], [address] MR/PATGary 04-15-2024 /PAT.[facility] Medical Records Department [address] [place] [address] PAT - Anesthesia 04/15/24 1032 MR#: [id number] Acct: [id number] Name: ALISON SANTACRUZ Rep #: [id number] : 1940 83 From: Casey Staley MD PCP: Dr. 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 Hx Hospitalization No 04/11/24 15:16 Any Problems [...] take am of surgery PONV PONV - car audio installer: PONV - car audio installer Female Yes 04/11/24 15:16 HX of Motion [...] 12/19/23 13:28 Respiratory Assessment Respiratory Assessment - car audio installer: Respiratory Tract Infection Hx - car audio installer Hx Respiratory Tract Infection No 04/11/24 15:16 STOP Sleep Apnea STOP Sleep Apnea - car audio installer: STOP Sleep Apnea - car audio installer Hx Hypertension Yes: CONTROLLED ON MEDS 04/11/24 [...] 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 Use History - car audio installer: Tobacco Use History - car audio installer Tobacco Use Smoking Status Never smoker 04/11/24 15:16 Hx Tobacco Use No 04/11/24 15:16 Years Smoking Packs Smoked per Day Smoking Cessation Date was within the last 15 years Hx Smoking Cessation Date Hx Smoking Cessation Counseling Hematologic Medial History Hematologic Hx - 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 Normal [facility] CBC W/Diff, Automatedon 12- Absolute Lymph 1.41 X10 3/uL Normal 0.83-4.51 [facility] Comment on above: Performed By: #### L 100.0100, L500.4050, L501.2450 #### [facility] [address] [place], [address] Absolute Neut 2.6 X10 3/uL Normal 2.0-7.7 [facility] Comment on above: Performed By: #### L 100.0100, L500.4050, L501.2450 #### [facility] [address] [place], [address] Basophils/100 WBC (Bld) 1.0 % Normal 0-1 [facility] Comment on above: Performed By: #### L 100.0100, L500.4050, L501.2450 #### [facility] [address] [place], [address] Eosinophils/100 WBC (Bld) 4.4 % Normal 0-5 [facility] Comment on above: Performed By: #### L 100.0100, L500.4050, L501.2450 #### [facility] [address] [place], [address] Erythrocyte distribution width (RBC) [Ratio] 11.9 % Normal 11.6-14.6 [facility] Comment on above: Performed By: #### L 100.0100, L500.4050, L501.2450 #### [facility] [address] [place], [address] Hematocrit (Bld) [Volume fraction] 38.2 % Normal 37-47 [facility] Comment on above: Performed By: #### L 100.0100, L500.4050, L501.2450 #### [facility] [address] [place], [address] Hemoglobin (Bld) [Mass/Vol] 12.9 g/dL Normal 12.0-15.0 [facility] Comment on above: Performed By: #### L 100.0100, L500.4050, L501.2450 #### [facility] [address] [place], [address] IG% 1.000 High 0.0-0.9 [facility] Comment on above: Result Comment: IG% - Immature Granulocytes (promyelocytes, myelocytes and metamyelocytes) > 1% indicates that a LEFT SHIFT is Present. Performed By: #### L 100.0100, L500.4050, L501.2450 #### [facility] [address] [place], [address] Lymphocytes/100 WBC (Bld) 29.5 % Normal 19-41 [facility] Comment on above: Performed By: #### L 100.0100, L500.4050, L501.2450 #### [facility] [address] [place], [address] MCH (RBC) [Entitic mass] 30.1 pg Normal 27.0-32.0 [facility] Comment on above: Performed By: #### L 100.0100, L500.4050, L501.2450 #### [facility] [address] [place], [address] MCHC (RBC) [Mass/Vol] 33.8 g/dL Normal 32-36 [facility] Comment on above: Performed By: #### L 100.0100, L500.4050, L501.2450 #### [facility] [address] [place], [address] MCV (RBC) [Entitic vol] 89.0 fL Normal 81-99 [facility] Comment on above: Performed By: #### L 100.0100, L500.4050, L501.2450 #### [facility] [address] [place], [address] Monocytes/100 WBC (Bld) 8.8 % Normal 0-10 [facility] Comment on above: Performed By: #### L 100.0100, L500.4050, L501.2450 #### [facility] [address] [place], [address] Neutrophils/100 WBC (Bld) 55.3 % Normal 47-70 [facility] Comment on above: Performed By: #### L 100.0100, L500.4050, L501.2450 #### [facility] [address] [place], [address] Nucleated RBC (Bld) [#/Vol] 0 10*3/uL Normal 0-5 [facility] Comment on above: Performed By: #### L 100.0100, L500.4050, L501.2450 #### [facility] [address] [place], [address] Platelet mean volume (Bld) [Entitic vol] 8.6 fL Normal 6.2-12.0 [facility] Comment on above: Performed By: #### L 100.0100, L500.4050, L501.2450 #### [facility] [address] [place], [address] Platelets (Bld) [#/Vol] 193 10*3/uL Normal 150-450 [facility] Comment on above: Performed By: #### L 100.0100, L500.4050, L501.2450 #### [facility] [address] [place], [address] RBC (Bld) [#/Vol] 4.29 10*6/uL Normal 4.2-5.4 [facility] Comment on above: Performed By: #### L 100.0100, L500.4050, L501.2450 #### [facility] [address] [place], [address] RDW SD 38.3 fl Normal 35.1-43.9 [facility] Comment on above: Performed By: #### L 100.0100, L500.4050, L501.2450 #### [facility] [address] [place], [address] WBC (Bld) [#/Vol] 4.8 10*3/uL Normal 4.4-11.0 [facility] Comment on above: Performed By: #### L 100.0100, L500.4050, L501.2450 #### [facility] [address] [place], [address] Comprehensive Metabolic Prof [facility] 02-16-2024 Albumin [Mass/Vol] 3.9 g/dL Normal 3.2-5.0 [facility] Comment on above: Performed By: #### L 100.0100, L500.4050, L501.2450 #### [facility] [address] [place], [address] Albumin/Globulin [Mass ratio] 1.3 {ratio} Normal 0.9-2.4 [facility] Comment on above: Performed By: #### L 100.0100, L500.4050, L501.2450 #### [facility] [address] [place], [address] ALK P 63 U/L Normal 45-117 [facility] Comment on above: Performed By: #### L 100.0100, L500.4050, L501.2450 #### [facility] [address] [place], [address] ALT [Catalytic activity/Vol] 23 U/L Normal 13-56 [facility] Comment on above: Performed By: #### L 100.0100, L500.4050, L501.2450 #### [facility] [address] [place], [address] AST [Catalytic activity/Vol] 12 U/L Low 15-37 [facility] Comment on above: Performed By: #### L 100.0100, L500.4050, L501.2450 #### [facility] [address] [place], [address] Bilirubin [Mass/Vol] 1.00 mg/dL Normal 0.20-1.00 [facility] Comment on above: Result Comment: For patients on eltrombopag therapy, use of Dimension Starbuck TBIL is not recommended. Performed By: #### L 100.0100, L500.4050, L501.2450 #### [facility] [address] [place], [address] BUN/CRE 16.3 RATIO Normal 10-20 [facility] Comment on above: Performed By: #### L 100.0100, L500.4050, L501.2450 #### [facility] [address] [place], [address] CA,Total 9.4 mg/dL Normal 8.5-10.1 [facility] Comment on above: Performed By: #### L 100.0100, L500.4050, L501.2450 #### [facility] [address] [place], [address] Chloride [Moles/Vol] 103 mmol/L Normal 98-107 [facility] Comment on above: Performed By: #### L 100.0100, L500.4050, L501.2450 #### [facility] [address] [place], [address] CO2 [Moles/Vol] 30.0 mmol/L Normal 21.0-32.0 [facility] Comment on above: Performed By: #### L 100.0100, L500.4050, L501.2450 #### [facility] [address] [place], [address] Creatinine [Mass/Vol] 0.86 mg/dL Normal 0.55-1.02 [facility] Comment on above: Result Comment: The validity of the calculated GFR GFRAA in patients over 70 years has not been determined. Clinical correlation is essential. Performed By: #### L 100.0100, L500.4050, L501.2450 #### [facility] [address] [place], [address] EST GFR - AA 81 mL/min Normal >60 [facility] Comment on above: Result Comment: Afri can [employer] GFR Calc Performed By: #### L 100.0100, L500.4050, L501.2450 #### [facility] [address] [place], [address] GAP 4 Low 5-15 [facility] Comment on above: Performed By: #### L 100.0100, L500.4050, L501.2450 #### [facility] [address] [place], [address] GFR/1.73 sq M.predicted among non-blacks MDRD (S/P/Bld) [Vol rate/Area] 67 mL/min/{1.73_m2} Normal >60 [facility] Comment on above: Result Comment: Non- GFR Calc Performed By: #### L 100.0100, L500.4050, L501.2450 #### [facility] [address] [place], [address] Globulin (S) [Mass/Vol] 2.9 g/dL Normal 2.2-4.2 [facility] Comment on above: Performed By: #### L 100.0100, L500.4050, L501.2450 #### [facility] [address] [place], [address] Glucose [Mass/Vol] 94 mg/dL Normal 74-106 [facility] Comment on above: Performed By: #### L 100.0100, L500.4050, L501.2450 #### [facility] [address] [place], [address] Potassium [Moles/Vol] 4.4 mmol/L Normal 3.5-5.1 [facility] Comment on above: Performed By: #### L 100.0100, L500.4050, L501.2450 #### [facility] [address] [place], [address] Sodium [Moles/Vol] 137 mmol/L Normal 136-145 [facility] Comment on above: Performed By: #### L 100.0100, L500.4050, L501.2450 #### [facility] [address] [place], [address] T PROT 6.8 g/dL Normal 6.4-8.2 [facility] Comment on above: Performed By: #### L 100.0100, L500.4050, L501.2450 #### [facility] [address] [place], [address] Urea nitrogen [Mass/Vol] 14 mg/dL Normal 7-18 [facility] Comment on above: Performed By: #### L 100.0100, L500.4050, L501.2450 #### [facility] [address] [place], [address] Gastroenterology Visit Repor ton 02-16-2024 Gastroenterology Visit Report [facility] G[facility]ology [address] [place] [address] OFFICE VISIT Date of Service: 02/16/24 MR#: [id number] Acct: [id number] Name: ALISON SANTACRUZ Rep #: [id number] : 1940 Provider: LIZZETTE Edwards Age/Sex: 83/F Location[place] [facility] Status: Signed Intake Vital Signs 12/19/23 13:28 Height 5 ft 6 in Intake Visit Reasons: Diarrhea Chief Complaint: black tarry stools Allergies Iodinated Contrast Media Allergy (Verified 12/19/23 13:25) Rash atorvastatin (From Lipitor) Adverse Reaction (Verified 12/19/23 13:25) Upset Stomach bupropion (From Wellbutrin) Adverse Reaction (Verified 12/19/23 13:25) Other paroxetine (From Paxil) Adverse Reaction (Verified 12/19/23 13:25) Sandy poorly rosuvastatin (From Crestor) Adverse Reaction (Verified [...] BM. Reports poor appetite due to nausea. [facility] Medical History (Updated 02/16/24 @ 09:31 by [...] Appearance: average body habitus and well nourished HENID Head: normal to inspection Ears: hearing grossly normal bilaterally Nose: external nose normal Eyes General: appearance normal, osmany (more content not included)... Normal [facility] Lipaseon 02-16-2024 Lipase [Catalytic activity/Vol] 37 U/L Normal 13-75 [facility] Comment on above: Result Comment: Juareza se note: LIPASE revised reference range effective 22. New Lipase methodology. Expected to produce lower values than the previous assay method. NEW Reference Range: 13 - 75 U/L Performed By: #### L 100.0100, L500.4050, L501.2450 ####[facility] [address] [facility] [place], [address] Colonoscopy Reporton 024 Colonoscopy Report [facility] Medical Records Department [address] [place] [address] Colonoscopy Report MR#: [id number] Acct: [id number] Name: ALISON SANTACRUZ Rep #: [id number] : 1940 83 From: [facility] Friend DO PCP: Dr. Eddie [...] present medications. Procedure Code(s): --- Professional --- 62609, Colonoscopy, flexible; with band ligation(s) (eg, hemorrhoids) CPT copyright 2021 [employer]. All rights reserved. The codes documented in this report are preliminary and upon hospital coder review may be revised to meet current compliance requirements. Willie Shook DO 12/19/2023 3:16:04 PM This report has been signed electronically. Number of Addenda: 0 Note Initiated On: 12/19/2023 2:28 PM 12/19/23 1516 Date Willie Shook DO Cosigner Signature: Date (if indicated) CC: Dr. Eddie Waggoner MD; Willie Shook DO Date Dictated: 12/19/23 1428 Date Transcribed: Hatchery Attendant: ES Signed [facility] MR/POSTOP.Prisca 12-19-2023 MR/POSTOP.[facility] Medical Records Department [address] [place] [address] Anesthesia Postop Eval I 12/19/23 1517 MR#: [id number] Acct: [id number] Name: ALISON SANTACRUZ Rep #: [id number] : 1940 83 From: Jim Middleton PCP: Dr. Eddie Waggoner MD Status:[facility] Y Race: C Location: [place] [address] Anesthesia: Postop Eval I Current Vital Signs [...] Jim Gregg Signature: Date CC: Signed Normal [facility]/[id number] 12-19-2023 [facility] Medical Records Department [address] [place] [address] Anesthesia Postop Eval II 12/19/23 1702 MR#: [id number] Acct: [id number] Name: ALISON SANTACRUZ Rep #: [id number] : 1940 83 From: Oliver Kapoor MD PCP: Dr. Eddie Waggoner MD Status:[facility] Y Race: C Location: EN [...] Oliver Griffinignvalentina Signature: Date CC: Signed Normal [facility] Gastroenterology Visit Repor ton 11-27-2023 Gastroenterology Visit Report [facility] Gastroenterology [address] [place] [address] OFFICE VISIT Date of Service: 11/27/23 MR#: [id number] Acct: [id number] Name: ALISON SANTACRUZ Rep #: [id number] : 1940 Provider: LIZZETTE Edwards Age/Sex: 83/F Location[place] [facility] [place] Status: Signed Intake Vital Signs 08/09/23 09:12 Height 5 ft 5 in Intake Visit Reasons: Hemorrhoids Chief Complaint: hemrrhoids, nausea Allergies Iodinated Contrast Media Allergy (Verified 11/17/23 13:31) Rash atorvastatin (From Lipitor) Adverse Reaction (Verified 11/17/23 13:31) Upset Stomach bupropion (From Wellbutrin) Adverse Reaction (Verified 11/17/23 13:31) Other paroxetine (From Paxil) Adverse Reaction (Verified 11/17/23 13:31) Sandy poorly rosuvastatin (From Crestor) Adverse Reaction (Verified [...] PO DAILY 07/14/22 11/17/23 History glucosamine 750 du-evdglhgvsvr-vkg 1 tab PO DAILY 07/14/22 11/17/23 History no1 644 mg-C 30 mg-liset 1 mg tablet (Osteo Bi-Flex Triple Strength) levothyroxine 137 mcg tablet 137 mcg PO DAILY 07/14/22 11/17/23 History multivitamin 1 tab PO DAILY 07/14/22 11/17/23 History omega 6-uze-goc-fish oil 60 mg-90 1 cap PO DAILY [...] her last colonoscopy was 7-8 years ago. [facility] Medical History Abnormal EKG Varicose veins of [...] to the office today for establishment with [facility]. Pt has a PMHx of valvular [...] Musculoskeletal: Posi (more content not included)... Normal [facility] Sinus/Facial Boneon 10-27-19 Sinus/Facial Bone [facility] [address] [place] [id number] Sinus/Facial Bone MR#: [id number] Acct: [id number] Name: ALISON SANTACRUZ Rep #: [id number] : 1940 F 83 From: Ramon toledo MD PCP: Dr. Eddie Waggoner MD Status: REG CLI Study: Sinus/Facial Bone Date of Exam: 10/27/23 Exam# [id number] Ordering Dr: Balaji Avitia MD [id number] STUDY: CT MAXILLOFACIAL SINUSES REASON FOR EXAM: [...] Balaji Avitia MD; Dr. Eddie Waggoner MD Hatchery Attendant: Signed Normal [facility] CBC W/Diff, Automatedon 10-05 Absolute Lymph 1.39 X10 3/uL Normal 0.83-4.51 [facility] Comment on above: Order Comment: Order Date: 10/26/23Order Info: [id number] - CBCD Performed By: #### L 500.4050, L500.4100, L501.9520, L100.0100 ####[facility] [address] [place], [address] Absolute Neut 2.8 X10 3/uL Normal 2.0-7.7 [facility] Comment on above: Order Comment: Order Date: 10/26/23Order Info: [id number] - CBCD Performed By: #### L 500.4050, L500.4100, L501.9520, L100.0100 ####[facility] [address] [place], [address] Basophils/100 WBC (Bld) 0.8 % Normal 0-1 [facility] Comment on above: Order Comment: Order Date: 10/26/23Order Info: [id number] - CBCD Performed By: #### L 500.4050, L500.4100, L501.9520, L100.0100 ####[facility] [address] [place], [address] Eosinophils/100 WBC (Bld) 4.0 % Normal 0-5 [facility] Comment on above: Order Comment: Order Date: 10/26/23Order Info: [id number] - CBCD Performed By: #### L 500.4050, L500.4100, L501.9520, L100.0100 ####[facility] [address] [place], [address] Erythrocyte distribution width (RBC) [Ratio] 11.9 % Normal 11.6-14.6 [facility] Comment on above: Order Comment: Order Date: 10/26/23Order Info: [id number] - CBCD Performed By: #### L 500.4050, L500.4100, L501.9520, L100.0100 ####[facility] [address] [place], [address] Hematocrit (Bld) [Volume fraction] 35.4 % Low 37-47 [facility] Comment on above: Order Comment: Order Date: 10/26/23Order Info: 018- - CBCD Performed By: #### L 500.4050, L500.4100, L501.9520, L100.0100 ####[facility] [address] [place], [address] Hemoglobin (Bld) [Mass/Vol] 12.0 g/dL Normal 12.0-15.0 [facility] Comment on above: Order Comment: Order Date: 10/26/23Order Info: 0184- - CBCD Performed By: #### L 500.4050, L500.4100, L501.9520, L100.0100 ####[facility] [address] [place], [address] IG% 0.600 Normal 0.0-0.9 [facility] Comment on above: Order Comment: Order Date: 10/26/23Order Info: [id number] - CBCD Result Comment: IG% - Immature Granulocytes (promyelocytes, myelocytes and metamyelocytes) > 1% indicates that a LEFT SHIFT is Present. Performed By: #### L 500.4050, L500.4100, L501.9520, L100.0100 ####[facility] [address] [place], [address] Lymphocytes/100 WBC (Bld) 29.1 % Normal 19-41 [facility] Comment on above: Order Comment: Order Date: 10/26/23Order Info: [id number] - CBCD Performed By: #### L 500.4050, L500.4100, L501.9520, L100.0100 ####[facility] [address] [place], [address] MCH (RBC) [Entitic mass] 30.2 pg Normal 27.0-32.0 [facility] Comment on above: Order Comment: Order Date: 10/26/23Order Info: 018- - CBCD Performed By: #### L 500.4050, L500.4100, L501.9520, L100.0100 ####[facility] [address] [place], [address] MCHC (RBC) [Mass/Vol] 33.9 g/dL Normal 32-36 [facility] Comment on above: Order Comment: Order Date: 10/26/23Order Info: 018- - CBCD Performed By: #### L 500.4050, L500.4100, L501.9520, L100.0100 ####[facility] [address] [place], [address] MCV (RBC) [Entitic vol] 88.9 fL Normal 81-99 [facility] Comment on above: Order Comment: Order Date: 10/26/23Order Info: 018- - CBCD Performed By: #### L 500.4050, L500.4100, L501.9520, L100.0100 ####[facility] [address] [place], [address] Monocytes/100 WBC (Bld) 6.9 % Normal 0-10 [facility] Comment on above: Order Comment: Order Date: 10/26/23Order Info: [id number] - CBCD Performed By: #### L 500.4050, L500.4100, L501.9520, L100.0100 ####[facility] [address] [place], [address] Neutrophils/100 WBC (Bld) 58.6 % Normal 47-70 [facility] Comment on above: Order Comment: Order Date: 10/26/23Order Info: [id number] - CBCD Performed By: #### L 500.4050, L500.4100, L501.9520, L100.0100 ####[facility] [address] [place], [address] Nucleated RBC (Bld) [#/Vol] 0 10*3/uL Normal 0-5 [facility] Comment on above: Order Comment: Order Date: 10/26/23Order Info: 018- - CBCD Performed By: #### L 500.4050, L500.4100, L501.9520, L100.0100 ####[facility] [address] [place], [address] Platelet mean volume (Bld) [Entitic vol] 8.7 fL Normal 6.2-12.0 [facility] Comment on above: Order Comment: Order Date: 10/26/23Order Info: 018- - CBCD Performed By: #### L 500.4050, L500.4100, L501.9520, L100.0100 ####[facility] [address] [place], [address] Platelets (Bld) [#/Vol] 198 10*3/uL Normal 150-450 [facility] Comment on above: Order Comment: Order Date: 10/26/23Order Info: [id number] - CBCD Performed By: #### L 500.4050, L500.4100, L501.9520, L100.0100 ####[facility] [address] [place], [address] RBC (Bld) [#/Vol] 3.98 10*6/uL Low 4.2-5.4 [facility] Comment on above: Order Comment: Order Date: 10/26/23Order Info: [id number] - CBCD Performed By: #### L 500.4050, L500.4100, L501.9520, L100.0100 ####[facility] [address] [place], [address] RDW SD 37.7 fl Normal 35.1-43.9 [facility] Comment on above: Order Comment: Order Date: 10/26/23Order Info: [id number] - CBCD Performed By: #### L 500.4050, L500.4100, L501.9520, L100.0100 ####[facility] [address] [place], [address] WBC (Bld) [#/Vol] 4.8 10*3/uL Normal 4.4-11.0 [facility] Comment on above: Order Comment: Order Date: 10/26/23Order Info: [id number] - CBCD Performed By: #### L 500.4050, L500.4100, L501.9520, L100.0100 ####[facility] [address] [place], [address] Comprehensive Metabolic Prof ilon 10-26-2023 Albumin [Mass/Vol] 3.6 g/dL Normal 3.2-5.0 [facility] Comment on above: Order Comment: Order Date: 10/26/23Order Info: [id number] - CMPOrder Info: [id number] - LIPIDOrder Info: [id number] - TSH Performed By: #### L 500.4050, L500.4100, L501.9520, L100.0100 ####[facility] [address] [place], [address] Albumin/Globulin [Mass ratio] 1.1 {ratio} Normal 0.9-2.4 [facility] Comment on above: Order Comment: Order Date: 10/26/23Order Info: [id number] - CMPOrder Info: [id number] - LIPIDOrder Info: [id number] - TSH Performed By: #### L 500.4050, L500.4100, L501.9520, L100.0100 ####[facility] [address] [place], [address] ALK P 70 U/L Normal 45-117 [facility] Comment on above: Order Comment: Order Date: 10/26/23Order Info: [id number] - CMPOrder Info: [id number] - LIPIDOrder Info: [id number] - TSH Performed By: #### L 500.4050, L500.4100, L501.9520, L100.0100 ####[facility] [address] [place], [address] ALT [Catalytic activity/Vol] 26 U/L Normal 13-56 [facility] Comment on above: Order Comment: Order Date: 10/26/23Order Info: [id number] - CMPOrder Info: [id number] - LIPIDOrder Info: [id number] - TSH Performed By: #### L 500.4050, L500.4100, L501.9520, L100.0100 ####[facility] [address] [place], [address] AST [Catalytic activity/Vol] 23 U/L Normal 15-37 [facility] Comment on above: Order Comment: Order Date: 10/26/23Order Info: [id number] - CMPOrder Info: [id number] - LIPIDOrder Info: [id number] - TSH Performed By: #### L 500.4050, L500.4100, L501.9520, L100.0100 ####[facility] [address] [place], [address] Bilirubin [Mass/Vol] 0.70 mg/dL Normal 0.20-1.00 [facility] Comment on above: Order Comment: Order Date: 10/26/23Order Info: 07-1 - CMPOrder Info: [id number] - LIPIDOrder Info: [id number] - TSH Result Comment: For patients on eltrombopag therapy, use of Dimension Starbuck TBIL is not recommended. Performed By: #### L 500.4050, L500.4100, L501.9520, L100.0100 ####[facility] [address] [place], [address] BUN/CRE 16.8 RATIO Normal 10-20 [facility] Comment on above: Order Comment: Order Date: 10/26/23Order Info: 07-1 - CMPOrder Info: [id number] - LIPIDOrder Info: 6-3 - TSH Performed By: #### L 500.4050, L500.4100, L501.9520, L100.0100 ####[facility] [address] [place], [address] CA,Total 8.7 mg/dL Normal 8.5-10.1 [facility] Comment on above: Order Comment: Order Date: 10/26/23Order Info: 07-1 - CMPOrder Info: [id number] - LIPIDOrder Info: [id number] - TSH Performed By: #### L 500.4050, L500.4100, L501.9520, L100.0100 ####[facility] [address] [place], [address] Chloride [Moles/Vol] 104 mmol/L Normal 98-107 [facility] Comment on above: Order Comment: Order Date: 10/26/23Order Info: 07-1 - CMPOrder Info: [id number] - LIPIDOrder Info: [id number] - TSH Performed By: #### L 500.4050, L500.4100, L501.9520, L100.0100 ####[facility] [address] [place], [address] CO2 [Moles/Vol] 30.0 mmol/L Normal 21.0-32.0 [facility] Comment on above: Order Comment: Order Date: 10/26/23Order Info: 07-1 - CMPOrder Info: [id number] - LIPIDOrder Info: 3 - TSH Performed By: #### L 500.4050, L500.4100, L501.9520, L100.0100 ####[facility] [address] [place], [address] Creatinine [Mass/Vol] 0.83 mg/dL Normal 0.55-1.02 [facility] Comment on above: Order Comment: Order Date: 10/26/23Order Info: 785- - CMPOrder Info: [id number] - LIPIDOrder Info: [id number] - TSH Result Comment: The validity of the calculated GFR GFRAA in patients over 70 years has not been determined. Clinical correlation is essential. Performed By: #### L 500.4050, L500.4100, L501.9520, L100.0100 ####[facility] [address] [place], [address] EST GFR - AA 84 mL/min Normal >60 [facility] Comment on above: Order Comment: Order Date: 10/26/23Order Info: 785- - CMPOrder Info: [id number] - LIPIDOrder Info: [id number] - TSH Result Comment: Afri can Cymro GFR Calc Performed By: #### L 500.4050, L500.4100, L501.9520, L100.0100 ####[facility] [address] [place], [address] GAP 5 Normal 5-15 [facility] Comment on above: Order Comment: Order Date: 10/26/23Order Info: 785- - CMPOrder Info: [id number] - LIPIDOrder Info: 3 - TSH Performed By: #### L 500.4050, L500.4100, L501.9520, L100.0100 ####[facility] [address] [place], [address] GFR/1.73 sq M.predicted among non-blacks MDRD (S/P/Bld) [Vol rate/Area] 69 mL/min/{1.73_m2} Normal >60 [facility] Comment on above: Order Comment: Order Date: 10/26/23Order Info: [id number] - CMPOrder Info: [id number] - LIPIDOrder Info: [id number] - TSH Result Comment: Non- GFR Calc Performed By: #### L 500.4050, L500.4100, L501.9520, L100.0100 ####[facility] [address] [place], [address] Globulin (S) [Mass/Vol] 3.4 g/dL Normal 2.2-4.2 [facility] Comment on above: Order Comment: Order Date: 10/26/23Order Info: 785- - CMPOrder Info: [id number] - LIPIDOrder Info: 3 - TSH Performed By: #### L 500.4050, L500.4100, L501.9520, L100.0100 ####[facility] [address] [place], [address] Glucose [Mass/Vol] 104 mg/dL Normal 74-106 [facility] Comment on above: Order Comment: Order Date: 10/26/23Order Info: 07- - CMPOrder Info: [id number] - LIPIDOrder Info: [id number] - TSH Result Comment: Fast ing Glucose result from 100 to 125 mg/dL suggests IMPAIRED HOMEOSTASIS per A.D.A. criteria. Performed By: #### L 500.4050, L500.4100, L501.9520, L100.0100 ####[facility] [address] [place], [address] Potassium [Moles/Vol] 3.7 mmol/L Normal 3.5-5.1 [facility] Comment on above: Order Comment: Order Date: 10/26/23Order Info: 785- - CMPOrder Info: [id number] - LIPIDOrder Info: [id number] - TSH Performed By: #### L 500.4050, L500.4100, L501.9520, L100.0100 ####[facility] [address] [place], [address] Sodium [Moles/Vol] 139 mmol/L Normal 136-145 [facility] Comment on above: Order Comment: Order Date: 10/26/23Order Info: 86-1 - CMPOrder Info: [id number] - LIPIDOrder Info: 3 - TSH Performed By: #### L 500.4050, L500.4100, L501.9520, L100.0100 ####[facility] [address] [place], [address] T PROT 7.0 g/dL Normal 6.4-8.2 [facility] Comment on above: Order Comment: Order Date: 10/26/23Order Info: 785- - CMPOrder Info: [id number] - LIPIDOrder Info: [id number] - TSH Performed By: #### L 500.4050, L500.4100, L501.9520, L100.0100 ####[facility] [address] [place], [address] Urea nitrogen [Mass/Vol] 14 mg/dL Normal 7-18 [facility] Comment on above: Order Comment: Order Date: 10/26/23Order Info: 785- - CMPOrder Info: [id number] - LIPIDOrder Info: [id number] - TSH Performed By: #### L 500.4050, L500.4100, L501.9520, L100.0100 ####[facility] [address] [place], [address] Lipid Profileon 10-26-2023 Cholesterol [Mass/Vol] 254 mg/dL High 200 [facility] Comment on above: Order Comment: Order Date: 10/26/23Order Info: [id number] - CMPOrder Info: [id number] - LIPIDOrder Info: [id number] - TSH Result Comment: <200 mg/dL Desirable 200-240 mg/dL Borderline >240 mg/dL High Risk Performed By: #### L 500.4050, L500.4100, L501.9520, L100.0100 ####[facility] [address] [place], [address] Cholesterol in HDL [Mass/Vol] 56 mg/dL Normal [facility] Comment on above: Order Comment: Order Date: 10/26/23Order Info: [id number] - CMPOrder Info: [id number] - LIPIDOrder Info: [id number] - TSH Result Comment: The drugs N-Acetylcysteine and Metamizole may falsely depress this assay. Reference Range HDL <40 mg/dL Low HDL Cholesterol HDL >or= 60 mg/dL High HDL Cholesterol Performed By: #### L 500.4050, L500.4100, L501.9520, L100.0100 ####[facility] [address] [place], [address] Cholesterol in LDL [Mass/Vol] 150 mg/dL High 0-130 [facility] Comment on above: Order Comment: Order Date: 10/26/23Order Info: [id number] - CMPOrder Info: - LIPIDOrder Info: [id number] - TSH Performed By: #### L 500.4050, L500.4100, L501.9520, L100.0100 ####[facility] [address] [place], [address] Cholesterol in VLDL [Mass/Vol] 48 mg/dL High 5-40 [facility] Comment on above: Order Comment: Order Date: 10/26/23Order Info: [id number] - CMPOrder Info: [id number] - LIPIDOrder Info: [id number] - TSH Performed By: #### L 500.4050, L500.4100, L501.9520, L100.0100 ####[facility] [address] [place], [address] Triglyceride [Mass/Vol] 242 mg/dL High [facility] Comment on above: Order Comment: Order Date: 10/26/23Order Info: [id number] - CMPOrder Info: [id number] - LIPIDOrder Info: [id number] - TSH Result Comment: The drugs N-Acetylcysteine and Metamizole may falsely depress this assay. Serum Triglycerides Reference Interval Normal <150 mg/dL Borderline high 150 - 199 mg/dL High 200 - 499 mg/dL Very High > or = 500 mg/dL Performed By: #### L 500.4050, L500.4100, L501.9520, L100.0100 ####[facility] [address] [place], [place], [address] Thyroid Stim Hormone (TSH)on 10-26-2023 TSH 3.110 uIU/mL Normal 0.358-3.740 [facility] Comment on above: Order Comment: Order Date: 10/26/23Order Info: [id number]- - CMPOrder Info: [id number] - LIPIDOrder Info: [id number] - TSH Performed By: #### L 500.4050, L500.4100, L501.9520, L100.0100 ####[facility] [address] [facility] [place], [place], [id number] Absolute lymphocyte countOrd ered By: Tila Bailey on 01-17-2023 Lymphocytes Auto (Unsp spec) [#/Vol] 0.50 10*3/uL 0.83-4.51 [facility] Basophil percentageOrdered B y: Tila Bailey on 01-17-2023 Creatinine [Mass/Vol] 1.0 mg/dL 0.55-1.02 [facility] Basophils/100 WBC (Bld) 0.3 % 0-1 [facility] Bilirubin [Mass/Vol] 0.70 mg/dL 0.20-1.00 [facility] Comment on above: For patients on eltr ombopag therapy, use of Dimension Starbuck TBIL is not recommended. Chloride [Moles/Vol] 105 mmol/L 98-107 [facility] Cholesterol [Mass/Vol] 264 mg/dL <200 [facility] Comment on above: <200 mg/dL Desirable 200-240 mg/dL Borderline >240 mg/dL High Risk Eosinophils/100 WBC (Bld) 2.5 % 0-5 [facility] Glucose [Mass/Vol] 150 mg/dL 74-106 [facility] Comment on above: Fasting Glucose resu lt greater than or equal to 126 mg/dL suggests DIABETES MELLITUS per A.D.A. criteria. Neutrophils (Bld) [#/Vol] 5.4 10*3/uL 2.0-7.7 [facility] Neutrophils/100 WBC (Bld) 84.7 % 47-70 [facility] Potassium [Moles/Vol] 4.1 mmol/L 3.5-5.1 [facility] Protein [Mass/Vol] 7.9 g/dL 6.4-8.2 [facility] Sodium [Moles/Vol] 139 mmol/L 136-145 [facility] Triglyceride [Mass/Vol] 60 mg/dL <199 [facility] Comment on above: The drugs N-Acetylcy steine and Metamizole may falsely depress this assay.Serum Triglycerides Reference Interval Normal <150 mg/dL Borderline high 150 - 199 mg/dL High 200 - 499 mg/dL Very High > or = 500 mg/dL WBC (Bld) [#/Vol] 6.4 10*3/uL 4.4-11.0 [facility] Blood erythrocytes count (nu mber/volume)Ordered By: Tila Bailey on 01-17-2023 RBC (Bld) [#/Vol] 4.36 10*6/uL 4.2-5.4 [facility] Blood hemoglobin measurement (mass/volume)Ordered By: Tila Bailey on 01-17-2023 Hemoglobin (Bld) [Mass/Vol] 12.7 g/dL 12.0-15.0 [facility] Blood lymphocytes/100 leukoc ytesOrdered By: Tila Bailey on 01-17-2023 Lymphocytes/100 WBC (Bld) 7.9 % 19-41 [facility] Blood manual differential co mment interpretation (narrative result)Ordered By: Tila Bailey on 01-17-2023 Manual differential comment Mehdi (Bld) [Interp] SCANNED [facility] Blood monocytes/100 leukocyt esOrdered By: Tila Bailey on 01-17-2023 Monocytes/100 WBC (Bld) 4.1 % 0-10 [facility] Blood platelet mean volumeOr dered By: Tila Bailey on 01-17-2023 Platelet mean volume (Bld) [Entitic vol] 8.7 fL 6.2-12.0 [facility] Determination of erythrocyte mean corpuscular volume (MCV)Ordered By: Tila Bailey on 01-17-2023 MCV (RBC) [Entitic vol] 89.0 fL 81-99 [facility] Hematocrit Auto (Bld) [Volum e fraction]Ordered By: Tila Bailey on 01-17-2023 Hematocrit (Bld) [Volume fraction] 38.8 % 37-47 [facility] Laboratory - Chemistry and C hemistry - challengeOrdered By: Tila Bailey on 01-17-2023 GFR/1.73 sq M.predicted among non-blacks MDRD (S/P/Bld) [Vol rate/Area] 54.0000 mL/min/{1.73_m2} >60 [facility] ALP [Catalytic activity/Vol] 70 U/L 45-117 [facility] ALT [Catalytic activity/Vol] 27 U/L 13-56 [facility] CO2 [Moles/Vol] 27.0 mmol/L 21.0-32.0 [facility] Globulin (S) [Mass/Vol] 3.9 g/dL 2.2-4.2 [facility] Urea nitrogen/Creatinine [Mass ratio] 18.3 mg/mg 10-20 [facility] - Hematology and Cell countsOrdered By: Tila Bailey on 01-17-2023 Erythrocyte distribution width (RBC) [Entitic vol] 39.1 fL 35.1-43.9 [facility] Erythrocyte distribution width (RBC) [Ratio] 12.0 % 11.6-14.6 [facility] Immature granulocytes/100 WBC (Bld) 0.500 % 0.0-0.9 [facility] Comment on above: IG% - Immature Granu locytes (promyelocytes, myelocytes and metamyelocytes) > 1% indicates that a LEFT SHIFT is Present. MCH (RBC) [Entitic mass] 29.1 pg 27.0-32.0 [facility] Nucleated RBC/100 WBC (Bld) [Ratio] 0 % 0-5 [facility] ([facility]) [Mass/Vol]Or dered By: Tila Bailey on 01-17-2023 MCHC (RBC) [Mass/Vol] 32.7 g/dL 32-36 [facility] No Panel InformationOrdered By: Tila Bailey on 01-17-2023 Estimated GFR (MDRD) Amer 74 mL/min >60 [facility] Comment on above: GFR Calc Estimated GFR (MDRD) Non-Af Amer 61 mL/min >60 [facility] Comment on above: Non- GFR Calc Thyroid Stimulating Hormone (TSH) 0.86 uIU/mL 0.358-3.74 [facility] Vitamin D 25-Hydroxy 102.0 ng/mL [facility] Comment on above: Vitamin D [...] 01-17-2023 Platelets (Bld) [#/Vol] 207 10*3/uL 150-450 [facility] Serum or plasma albumin jose martin urement (mass/volume)Ordered By: Tila Bailey on 01-17-2023 Albumin [Mass/Vol] 4.0 g/dL 3.2-5.0 [facility] Serum or plasma albumin/glob ulin mass ratioOrdered By: Tila Bailey on 01-17-2023 Albumin/Globulin [Mass ratio] 1.0 {ratio} 0.9-2.4 [facility] Serum or plasma calcium jose martin urement (mass/volume)Ordered By: Tila Bailey on 01-17-2023 Calcium [Mass/Vol] 9.3 mg/dL 8.5-10.1 [facility] Serum or plasma cholesterol in HDL measurement (mass/volume)Ordered By: Tila Bailey on 01-17-2023 Cholesterol in HDL [Mass/Vol] 81 mg/dL >40 [facility] Comment on above: The drugs N-Acetylcy steine and Metamizole may falsely depress this assay. Reference Range HDL <40 mg/dL Low HDL Cholesterol HDL >or= 60 mg/dL High HDL Cholesterol Serum or plasma cholesterol in VLDL measurement (mass/volume)Ordered By: Tila Bailey on 01-17-2023 Cholesterol in VLDL [Mass/Vol] 12 mg/dL 5-40 [facility] Serum or plasma creatinine m easurement (mass/volume)Ordered By: Tila Bailey on 01-17-2023 Creatinine [Mass/Vol] 0.93 mg/dL 0.55-1.02 [facility] Comment on above: The validity of the calculated GFR & GFRAA in patients over 70 years has not been determined. Clinical correlation is essential. Serum or plasma low density lipoprotein (LDL) cholesterol measurement (mass/volume)Ordered By: Tila Bailey on 01-17-2023 Cholesterol in LDL [Mass/Vol] 171 mg/dL 0-130 [facility] Serum or plasma urea nitroge n measurement (mass/volume)Ordered By: Tila Bailey on 01-17-2023 Urea nitrogen [Mass/Vol] 17 mg/dL 7-18 [facility] Thin prep Papanicolaou smear with manual screeningOrdered By: Tila Bailey on 01-17-2023 Thin prep Papanicolaou smear with manual screening 16 U/L 15-37 [facility] Thin prep Papanicolaou smear with manual screening 7 5-15 [facility] Laboratory - Chemistry and C hemistry - challengeOrdered By: Roxanna Lemus on 09-15-2022 Free T4 [Mass/Vol] 1.19 ng/dL 0.76-1.46 [facility] No Panel InformationOrdered By: Roxanna Allan on 09-15-2022 Thyroid Stimulating Hormone (TSH) 2.38 uIU/mL 0.358-3.74 [facility] Absolute lymphocyte countOrd ered By: Vernon Garrett on 07-19-2022 Lymphocytes Auto (Unsp spec) [#/Vol] 1.39 10*3/uL 0.83-4.51 [facility] Basophil percentageOrdered B y: Vernon Garrett on 07-19-2022 Basophils/100 WBC (Bld) 0.6 % 0-1 [facility] Bilirubin [Mass/Vol] 0.50 mg/dL 0.20-1.00 [facility] Comment on above: For patients on eltr ombopag therapy, use of Dimension Starbuck TBIL is not recommended. Chloride [Moles/Vol] 106 mmol/L 98-107 [facility] Eosinophils/100 WBC (Bld) 8.1 % 0-5 [facility] Glucose [Mass/Vol] 119 mg/dL 74-106 [facility] Comment on above: Fasting Glucose resu lt from 100 to 125 mg/dL suggests IMPAIRED HOMEOSTASIS per A.D.A. criteria. LDH [Catalytic activity/Vol] 188 U/L 84-246 [facility] Neutrophils (Bld) [#/Vol] 2.6 10*3/uL 2.0-7.7 [facility] Neutrophils/100 WBC (Bld) 53.9 % 47-70 [facility] Potassium [Moles/Vol] 4.1 mmol/L 3.5-5.1 [facility] Protein [Mass/Vol] 7.5 g/dL 6.4-8.2 [facility] Sodium [Moles/Vol] 139 mmol/L 136-145 [facility] WBC (Bld) [#/Vol] 4.8 10*3/uL 4.4-11.0 [facility] Blood erythrocytes count (nu mber/volume)Ordered By: Vernon Garrett on 07-19-2022 RBC (Bld) [#/Vol] 4.23 10*6/uL 4.2-5.4 [facility] Blood hemoglobin measurement (mass/volume)Ordered By: Vernon Garrett on 07-19-2022 Hemoglobin (Bld) [Mass/Vol] 12.7 g/dL 12.0-15.0 [facility] Blood lymphocytes/100 leukoc ytesOrdered By: Vernon Garrett on 07-19-2022 Lymphocytes/100 WBC (Bld) 28.9 % 19-41 [facility] Blood monocytes/100 leukocyt esOrdered By: Vernon Garrett on 07-19-2022 Monocytes/100 WBC (Bld) 8.3 % 0-10 [facility] Blood platelet mean volumeOr dered By: Vernon Garrett on 07-19-2022 Platelet mean volume (Bld) [Entitic vol] 8.4 fL 6.2-12.0 [facility] Determination of erythrocyte mean corpuscular volume (MCV)Ordered By: Vernon Garrett on 07-19-2022 MCV (RBC) [Entitic vol] 89.6 fL 81-99 [facility] Erythrocyte sedimentation ra teOrdered By: Vernon Garrett on 07-19-2022 ESR (Bld) [Velocity] 12 mm/h 0-30 [facility] Hematocrit Auto (Bld) [Volum e fraction]Ordered By: Vernon Garrett on 07-19-2022 Hematocrit (Bld) [Volume fraction] 37.9 % 37-47 [facility] Hemoglobin in reticulocytes (mass per reticulocyte)Ordered By: Vernon Garrett on 07-19-2022 Hemoglobin (Reticulocytes) [Entitic mass] 32.7 pg 30-35 [facility] Iron measurement (mass/mass) Ordered By: Vernon Garrett on 07-19-2022 Iron (Unsp spec) [Mass/Mass] 55 ug/dL 50-170 [facility] Laboratory - Chemistry and C hemistry - challengeOrdered By: Vernon Garrett on 07-19-2022 ALP [Catalytic activity/Vol] 106 U/L 45-117 [facility] ALT [Catalytic activity/Vol] 30 U/L 13-56 [facility] CO2 [Moles/Vol] 27.0 mmol/L 21.0-32.0 [facility] Cobalamin (Vitamin B12) [Mass/Vol] 428 pg/mL 211-911 [facility] Globulin (S) [Mass/Vol] 3.6 g/dL 2.2-4.2 [facility] Urea nitrogen/Creatinine [Mass ratio] 21.3 mg/mg 10-20 [facility] Laboratory - Hematology and Cell countsOrdered By: Vernon Garrett on 07-19-2022 Erythrocyte distribution width (RBC) [Entitic vol] 41.0 fL 35.1-43.9 [facility] Erythrocyte distribution width (RBC) [Ratio] 12.4 % 11.6-14.6 [facility] Immature granulocytes/100 WBC (Bld) 0.200 % 0.0-0.9 [facility] Comment on above: IG% - Immature Granu locytes (promyelocytes, myelocytes and metamyelocytes) > 1% indicates that a LEFT SHIFT is Present. MCH (RBC) [Entitic mass] 30.0 pg 27.0-32.0 [facility] Nucleated RBC/100 WBC (Bld) [Ratio] 0 % 0-5 [facility] MCHC Auto (RBC) [Mass/Vol]Or dered By: Vernon Garrett on 07-19-2022 MCHC (RBC) [Mass/Vol] 33.5 g/dL 32-36 [facility] No Panel InformationOrdered By: Vernon Garrett on 07-19-2022 Estimated GFR (MDRD) Amer 78 mL/min >60 [facility] Comment on above: GFR Calc Estimated GFR (MDRD) Non-Af Amer 64 mL/min >60 [facility] Comment on above: Non- GFR Calc Immature Reticulocyte Fraction 5.80 % 3.00-15.90 [facility] Reticulocyte Count 1.11 % 0.5-1.5 [facility] Total Iron Binding Capacity 319 ug/dL 250-450 [facility] Platelets bldOrdered By: David Garrett on 07-19-2022 Platelets (Bld) [#/Vol] 182 10*3/uL 150-450 [facility] Serum or plasma C reactive p rotein measurement (mass/volume)Ordered By: Vernon Garrett on 07-19-2022 CRP [Mass/Vol] mg/L 0.0-3.0 [facility] Comment on above: C-Reactive Protein ( CRP) provides useful information for thediagnosis, therapy and monitoring of inflammatory processesand associated diseases. For the evaluation of Relative Riskfor Cardiovascular Disease, a High Sensitivity CRP (HSCRP)should be ordered. Serum or plasma albumin jose martin urement (mass/volume)Ordered By: Vernon Hola on 07-19-2022 Albumin [Mass/Vol] 3.9 g/dL 3.2-5.0 [facility] Serum or plasma albumin/glob ulin mass ratioOrdered By: Vernon Simental on 07-19-2022 Albumin/Globulin [Mass ratio] 1.1 {ratio} 0.9-2.4 [facility] Serum or plasma calcium jose martin urement (mass/volume)Ordered By: Vernon Simental on 07-19-2022 Calcium [Mass/Vol] 9.1 mg/dL 8.5-10.1 [facility] Serum or plasma creatinine m easurement (mass/volume)Ordered By: Vernon [facility] on 07-19-2022 Creatinine [Mass/Vol] 0.89 mg/dL 0.55-1.02 [facility] Comment on above: The validity of the calculated GFR & GFRAA in patients over 70 years has not been determined. Clinical correlation is essential. Serum or plasma ferritin manuela surement (mass/volume)Ordered By: Vernon Simental on 07-19-2022 Ferritin [Mass/Vol] 55 ng/mL 8-252 [facility] Serum or plasma folate measu rement (mass/volume)Ordered By: Vernon Simental on 07-19-2022 Folate [Mass/Vol] 49.60 ng/mL 3.1-55.4 [facility] Serum or plasma iron saturat ion measurement (mass fraction)Ordered By: Vernon [facility] on 07-19-2022 Iron saturation [Mass fraction] 17.2 % 15.0-55.0 [facility] Serum or plasma urea nitroge n measurement (mass/volume)Ordered By: Vernon Garrett on 07-19-2022 Urea nitrogen [Mass/Vol] 19 mg/dL 7-18 [facility] Thin prep Papanicolaou smear with manual screeningOrdered By: Vernon Garrett on 07-19-2022 Thin prep Papanicolaou smear with manual screening 20 U/L 15-37 [facility] Thin prep Papanicolaou smear with manual screening 6 5-15 [facility] Absolute lymphocyte countOrd ered By: Roxanna Lemus on 07-05-2022 Lymphocytes Auto (Unsp spec) [#/Vol] 1.06 10*3/uL 0.83-4.51 [facility] Basophil percentageOrdered B y: Roxanna Lemus on 07-05-2022 Basophils/100 WBC (Bld) 0.7 % 0-1 [facility] Eosinophils/100 WBC (Bld) 9.7 % 0-5 [facility] Neutrophils (Bld) [#/Vol] 1.2 10*3/uL 2.0-7.7 [facility] Neutrophils/100 WBC (Bld) 41.5 % 47-70 [facility] WBC (Bld) [#/Vol] 2.8 10*3/uL 4.4-11.0 [facility] Blood erythrocytes count (nu mber/volume)Ordered By: Roxanna Lemus on 07-05-2022 RBC (Bld) [#/Vol] 4.23 10*6/uL 4.2-5.4 [facility] Blood hemoglobin measurement (mass/volume)Ordered By: Roxanna Lemus on 07-05-2022 Hemoglobin (Bld) [Mass/Vol] 12.6 g/dL 12.0-15.0 [facility] Blood lymphocytes/100 leukoc ytesOrdered By: Roxanna Lemus on 07-05-2022 Lymphocytes/100 WBC (Bld) 38.0 % 19-41 [facility] Blood monocytes/100 leukocyt esOrdered By: Roxanna Lemus on 07-05-2022 Monocytes/100 WBC (Bld) 9.7 % 0-10 [facility] Blood platelet mean volumeOr dered By: Roxanna Lemus on 07-05-2022 Platelet mean volume (Bld) [Entitic vol] 8.9 fL 6.2-12.0 [facility] Determination of erythrocyte mean corpuscular volume (MCV)Ordered By: Roxanna Lemus on 07-05-2022 MCV (RBC) [Entitic vol] 90.5 fL 81-99 [facility] Hematocrit Auto (Bld) [Volum e fraction]Ordered By: Roxanna Lemus on 07-05-2022 Hematocrit (Bld) [Volume fraction] 38.3 % 37-47 [facility] - Hematology and Cell countsOrdered By: Roxanna Lemus on 07-05-2022 Erythrocyte distribution width (RBC) [Entitic vol] 41.6 fL 35.1-43.9 [facility] Erythrocyte distribution width (RBC) [Ratio] 12.6 % 11.6-14.6 [facility] Immature granulocytes/100 WBC (Bld) 0.400 % 0.0-0.9 [facility] Comment on above: IG% - Immature Granu locytes (promyelocytes, myelocytes and metamyelocytes) > 1% indicates that a LEFT SHIFT is Present. MCH (RBC) [Entitic mass] 29.8 pg 27.0-32.0 [facility] Nucleated RBC/100 WBC (Bld) [Ratio] 0 % 0-5 [facility] MCHC Auto (RBC) [Mass/Vol]Or dered By: Roxanna Lemus on 07-05-2022 MCHC (RBC) [Mass/Vol] 32.9 g/dL 32-36 [facility] No Panel InformationOrdered By: Sandra Sheppard on 07-05-2022 Thyroid Stimulating Hormone (TSH) 4.94 uIU/mL 0.358-3.74 [facility] Platelets bldOrdered By: Abhijit Lemus on 07-05-2022 Platelets (Bld) [#/Vol] 198 10*3/uL 150-450 [facility] Absolute lymphocyte countOrd ered By: Roxanna Lemus on 06-07-2022 Lymphocytes Auto (Unsp spec) [#/Vol] 1.09 10*3/uL 0.83-4.51 [facility] Basophil percentageOrdered B y: Roxanna Lemus on 06-07-2022 Basophils/100 WBC (Bld) 1.1 % 0-1 [facility] Bilirubin [Mass/Vol] 1.10 mg/dL 0.20-1.00 [facility] Comment on above: For patients on eltr ombopag therapy, use of Dimension Starbuck TBIL is not recommended. Chloride [Moles/Vol] 107 mmol/L 98-107 [facility] Cholesterol [Mass/Vol] 252 mg/dL <200 [facility] Comment on above: <200 mg/dL Desirable 200-240 mg/dL Borderline >240 mg/dL High Risk Eosinophils/100 WBC (Bld) 10.7 % 0-5 [facility] Glucose [Mass/Vol] 94 mg/dL 74-106 [facility] Neutrophils (Bld) [#/Vol] 1.1 10*3/uL 2.0-7.7 [facility] Neutrophils/100 WBC (Bld) 39.6 % 47-70 [facility] Potassium [Moles/Vol] 3.9 mmol/L 3.5-5.1 [facility] Protein [Mass/Vol] 7.4 g/dL 6.4-8.2 [facility] Sodium [Moles/Vol] 139 mmol/L 136-145 [facility] Triglyceride [Mass/Vol] 94 mg/dL <199 [facility] Comment on above: The drugs N-Acetylcy steine and Metamizole may falsely depress this assay.Serum Triglycerides Reference Interval Normal <150 mg/dL Borderline high 150 - 199 mg/dL High 200 - 499 mg/dL Very High > or = 500 mg/dL WBC (Bld) [#/Vol] 2.7 10*3/uL 4.4-11.0 [facility] Blood erythrocytes count (nu mber/volume)Ordered By: Roxanna Lemus on 06-07-2022 RBC (Bld) [#/Vol] 4.13 10*6/uL 4.2-5.4 [facility] Blood hemoglobin measurement (mass/volume)Ordered By: Roxanna Lemus on 06-07-2022 Hemoglobin (Bld) [Mass/Vol] 12.1 g/dL 12.0-15.0 [facility] Blood lymphocytes/100 leukoc ytesOrdered By: Roxanna Lemus on 06-07-2022 Lymphocytes/100 WBC (Bld) 40.1 % 19-41 [facility] Blood monocytes/100 leukocyt esOrdered By: Roxanna Lemus on 06-07-2022 Monocytes/100 WBC (Bld) 8.1 % 0-10 [facility] Blood platelet mean volumeOr dered By: Roxanna Lemus on 06-07-2022 Platelet mean volume (Bld) [Entitic vol] 8.8 fL 6.2-12.0 [facility] Determination of erythrocyte mean corpuscular volume (MCV)Ordered By: Roxanna Lemus on 06-07-2022 MCV (RBC) [Entitic vol] 88.6 fL 81-99 [facility] Hematocrit Auto (Bld) [Volum e fraction]Ordered By: Roxanna Lemus on 06-07-2022 Hematocrit (Bld) [Volume fraction] 36.6 % 37-47 [facility] - Chemistry and C hemistry - challengeOrdered By: Roxanna Lemus on 06-07-2022 ALP [Catalytic activity/Vol] 84 U/L 45-117 [facility] ALT [Catalytic activity/Vol] 26 U/L 13-56 [facility] CO2 [Moles/Vol] 27.0 mmol/L 21.0-32.0 [facility] Globulin (S) [Mass/Vol] 3.6 g/dL 2.2-4.2 [facility] Urea nitrogen/Creatinine [Mass ratio] 19.4 mg/mg 10-20 [facility] - Hematology and Cell countsOrdered By: Roxanna Lemus on 06-07-2022 Erythrocyte distribution width (RBC) [Entitic vol] 41.2 fL 35.1-43.9 [facility] Erythrocyte distribution width (RBC) [Ratio] 12.8 % 11.6-14.6 [facility] Immature granulocytes/100 WBC (Bld) 0.400 % 0.0-0.9 [facility] Comment on above: IG% - Immature Granu locytes (promyelocytes, myelocytes and metamyelocytes) > 1% indicates that a LEFT SHIFT is Present. MCH (RBC) [Entitic mass] 29.3 pg 27.0-32.0 [facility] Nucleated RBC/100 WBC (Bld) [Ratio] 0 % 0-5 [facility] MCHC Auto (RBC) [Mass/Vol]Or dered By: Roxanna Lemus on 06-07-2022 MCHC (RBC) [Mass/Vol] 33.1 g/dL 32-36 [facility] No Panel InformationOrdered By: Roxanna Lemus on 06-07-2022 Estimated GFR (MDRD) Amer 79 mL/min >60 [facility] Comment on above: GFR Calc Estimated GFR (MDRD) Non-Af Amer 65 mL/min >60 [facility] Comment on above: Non- GFR Calc Thyroid Stimulating Hormone (TSH) 32.30 uIU/mL 0.358-3.74 [facility] Platelets bldOrdered By: Abhijit Lemus on 06-07-2022 Platelets (Bld) [#/Vol] 188 10*3/uL 150-450 [facility] Serum or plasma albumin jose martin urement (mass/volume)Ordered By: Roxanna Lemus on 06-07-2022 Albumin [Mass/Vol] 3.8 g/dL 3.2-5.0 [facility] Serum or plasma albumin/glob ulin mass ratioOrdered By: Roxanna Lemus on 06-07-2022 Albumin/Globulin [Mass ratio] 1.1 {ratio} 0.9-2.4 [facility] Serum or plasma calcium jose martin urement (mass/volume)Ordered By: Roxanna Lemus on 06-07-2022 Calcium [Mass/Vol] 8.9 mg/dL 8.5-10.1 [facility] Serum or plasma cholesterol in HDL measurement (mass/volume)Ordered By: Roxanna Lemus on 06-07-2022 Cholesterol in HDL [Mass/Vol] 66 mg/dL >40 [facility] Comment on above: The drugs N-Acetylcy steine and Metamizole may falsely depress this assay. Reference Range HDL <40 mg/dL Low HDL Cholesterol HDL >or= 60 mg/dL High HDL Cholesterol Serum or plasma cholesterol in VLDL measurement (mass/volume)Ordered By: Roxanna Lemus on 06-07-2022 Cholesterol in VLDL [Mass/Vol] 19 mg/dL 5-40 [facility] Serum or plasma creatinine m easurement (mass/volume)Ordered By: Roxanna Lemus on 06-07-2022 Creatinine [Mass/Vol] 0.88 mg/dL 0.55-1.02 [facility] Comment on above: The validity of the calculated GFR & GFRAA in patients over 70 years has not been determined. Clinical correlation is essential. Serum or plasma low density lipoprotein (LDL) cholesterol measurement (mass/volume)Ordered By: Roxanna Lemus on 06-07-2022 Cholesterol in LDL [Mass/Vol] 167 mg/dL 0-130 [facility] Serum or plasma urea nitroge n measurement (mass/volume)Ordered By: Roxanna Lemus on 06-07-2022 Urea nitrogen [Mass/Vol] 17 mg/dL 7-18 [facility] Thin prep Papanicolaou smear with manual screeningOrdered By: Roxanna Lemus on 06-07-2022 Thin prep Papanicolaou smear with manual screening 19 U/L 15-37 [facility] Thin prep Papanicolaou smear with manual screening 5 5-15 [facility] Thin prep Papanicolaou smear with manual screening 21.3 mg/L NO RANGE EST. [facility] Vital Signs Date Time Vital Sign Value Performing Clinician Facility 10-05-2024 14:26-0400 Body temperature 99.39 [degF] David Rocha MD Work Phone: [facility] 10-05-2024 14:26-0400 Body weight 72.2 kg David Rocha MD Work Phone: [facility] 10-05-2024 14:26-0400 Diastolic blood pressure 78 mm[Hg] David Rocha MD Work Phone: [facility] 10-05-2024 14:26-0400 Heart rate 85 /min David Rocha MD Work Phone: [facility] 10-05-2024 14:26-0400 Respiratory rate 18 /min David Rocha MD Work Phone: [facility] 10-05-2024 14:26-0400 SaO2% (BldA) [Mass fraction] 98 % David Rocha MD Work Phone: [facility] 10-05-2024 14:26-0400 Systolic blood pressure 122 mm[Hg] David Rocha MD Work Phone: [facility] 07-25-2022 13:15-0400 Body height 165.1 cm DO Roxanna Lemus Work Phone: [facility] 07-25-2022 13:14-0400 Body mass index (BMI) [Ratio] 26.8 kg/m2 DO Roxanna Allan Work Phone: [facility] 07-25-2022 13:14-0400 Body temperature 97.9 [degF] DO Roxanna Allan Work Phone: [facility] 07-25-2022 13:14-0400 Body weight 73.17 kg DO Roxanna Allan Work Phone: [facility] 07-25-2022 13:14-0400 Diastolic blood pressure 68 mm[Hg] DO Roxanna Allan Work Phone: [facility] 07-25-2022 13:14-0400 Heart rate 96 /min DO Roxanna Allan Work Phone: [facility] 07-25-2022 13:14-0400 Respiratory rate 16 /min DO Roxanna Allan Work Phone: [facility] 07-25-2022 13:14-0400 SaO2% (BldA) [Mass fraction] 96 % DO Roxanna Allan Work Phone: [facility] 07-25-2022 13:14-0400 Systolic blood pressure 112 mm[Hg] DO Roxanna Allan Work Phone: [facility] 07-19-2022 14:30-0400 Body mass index (BMI) [Ratio] 26.6 kg/m2 DO Roxanna Allan Work Phone: [facility] 07-19-2022 14:30-0400 Body temperature 97.1 [degF] DO Roxanna Allan Work Phone: [facility] 07-19-2022 14:30-0400 Body weight 72.77 kg DO Roxanna Allan Work Phone: [facility] 07-19-2022 14:30-0400 Diastolic blood pressure 73 mm[Hg] DO Roxanna Allan Work Phone: [facility] 07-19-2022 14:30-0400 Heart rate 96 /min DO Roxanna Allan Work Phone: [facility] 07-19-2022 14:30-0400 Respiratory rate 16 /min DO Roxanna Lemus Work Phone: [facility] 07-19-2022 14:30-0400 SaO2% (BldA) [Mass fraction] 97 % DO Roxanna Lemus Work Phone: [facility] 07-19-2022 14:30-0400 Systolic blood pressure 118 mm[Hg] DO Roxannafelice Lemus Work Phone: [facility] Encounters Encounter Date Encounter Type Care Provider Facility Start: 10-11-2024 ambulatory Chalon Rosaline Facility:[facility] Start: 10-06-2024 End: 10-06-2024 Emergency department patient visit Chalon Rosaline Facility:[facility] Start: 10-05-2024 End: 10-05-2024 ambulatory DAVID ROCHA Facility:[facility] Start: 10-05-2024 End: 10-05-2024 Patient encounter procedure David Rocha MD Work Phone: [facility] Comment on above: Influenza-like illne ss (Primary Dx); Nausea Start: 10-04-2024 ambulatory Chalon Rosaline Facility:[facility] Start: 07-30-2024 End: 07-30-2024 ambulatory Chalon Rosaline Facility:[facility] Start: 06-20-2024 End: 06-20-2024 ambulatory Chalon Rosaline Facility:[facility] Start: 05-31-2024 End: 05-31-2024 ambulatory Chalon Rosaline Facility:[facility] Start: 05-31-2024 End: 05-31-2024 ambulatory Chalon Rosaline Facility:[facility] Start: 05-30-2024 End: 05-30-2024 ambulatory Chalon Rosaline Facility:[facility] Start: 05-17-2024 ambulatory Chalon Rosaline Facility:[facility] Start: 04-22-2024 End: 04-22-2024 ambulatory Chalon Rosaline Facility:[facility] Start: 04-16-2024 ambulatory Willie Friend Facility :[facility] Start: 04-16-2024 End: 04-16-2024 ambulatory Chalon Rosaline Facility:[facility] Start: 02-16-2024 End: 02-16-2024 ambulatory Chalon Rosaline Facility:[facility] Start: 02-16-2024 End: 02-16-2024 ambulatory Chalon Rosaline Facility:[facility] Start: 12-19-2023 ambulatory Chalon Rosaline Facility:[facility] Start: 12-19-2023 End: 12-19-2023 ambulatory Chalon Rosaline Facility:[facility] Start: 11-27-2023 End: 11-27-2023 ambulatory Chalon Rosaline Facility:[facility] Start: 10-27-2023 End: 10-27-2023 ambulatory Balaji Avitia Facility:[facility] Start: 10-26-2023 End: 10-26-2023 ambulatory Chalon Rosaline Facility:[facility] Start: 01-17-2023 End: 01-17-2023 ambulatory [facility] Work Phone: Start: 01-17-2023 End: 01-17-2023 Patient encounter procedure [facility] Work Phone: Start: 09-15-2022 End: 09-15-2022 ambulatory DO Roxanna Lemus Work Phone: [facility] Work Phone: Start: 09-15-2022 End: 09-15-2022 Patient encounter procedure DO Roxanna Lemus Work Phone: [facility] Work Phone: Start: 07-25-2022 End: 07-25-2022 Patient encounter procedure DO Roxanna Lemus Work Phone: [facility] Work Phone: Start: 07-19-2022 Registered Recurring DO Mavis Lemus Work Phone: [facility] Start: 07-19-2022 End: 07-19-2022 Patient encounter procedure DO Roxanna Lemus Work Phone: [facility] Work Phone: Start: 07-14-2022 Non-patient / Non-visit DO Abhijit Lemus Work Phone: [facility] Start: 07-05-2022 End: 07-05-2022 ambulatory [facility] Work Phone: Start: 07-05-2022 End: 07-05-2022 Patient encounter procedure [facility] Start: 06-21-2022 End: 06-21-2022 ambulatory [facility] Work Phone: Start: 06-21-2022 End: 06-21-2022 Patient encounter procedure [facility]-Outpatient Bone Densitometry Start: 06-07-2022 End: 06-07-2022 [facility] Start: 06-29-2021 End: 06-29-2021 [facility] Procedures Date Procedure Procedure Detail Performing Clinician Start: 01-17-2023 Computed tomography of abdomen and pelvis with contrast Start: 06-21-2022 Dual energy X-ray absorptiometry Start: 06-29-2021 Radiography of ankle Plan of Treatment Date Care Activity Detail Author Start: 11-27-2024 Urine microalbumin profile DTaP,Tdap,Td Vaccine (2 - Td or Tdap) [facility] Start: 11-04-2024 Influenza vaccination Influenza Vacc ine (#1) [facility] Start: 03-06-2024 Advance Directive Discussion Advance Directive Discussion [facility] Start: 02-09-2022 Shingrix Vaccine (2 of 2) Salguero grix Vaccine (2 of 2) [facility] Start: 07-28-2003 Screening for osteoporosis Bone Density Screening [facility] Start: 07-28-1983 Diabetes Screening Diabetes Screenin g [facility] Start: 1958 Anxiety Screening Anxiety Screening [facility] Start: 1958 Depression Screening Depression Scre ening [facility] CBC W Auto Different ial panel - Blood [facility] Ferritin [Mass/volum e] in Serum or Plasma [facility] Folate [Mass/volume] in Serum or Plasma [facility] Iron and Iron bindin g capacity panel - Serum or Plasma [facility] Lactate dehydrogenas e measurement [facility] Vitamin B12 measurement [facility] Immunizations Immunization Date Immunization Notes Care Provider Marilia stephenson 11-28-2023 influenza virus vaccine, unspecified formulation David Rocha MD Work Phone: [facility] 05-08-2020 Covid (Moderna) [facility] 04-10-2020 Covid (Moderna) [facility] 11-05-2015 Influenza virus vaccine [facility] Payers Date Payer Category Payer Private Health Insurance [facility] Member Subscriber Plan / Payer (Effective 2024-Present) Name: Alison Santacruz Relation to Subscriber: Self Name: Alison Santacruz Payer ID: [id number] (NAIC) Group ID: Not on file Type: Karyn Address: [facility] [id number] [place] [id number] 2023 Self-pay [id number] 2023 Unknown [id number] 2003 Medicare [id number] Unknown [id number] .1.404625.3.579.2 .462 Unknown [id number] .1.731207.3.579.2 .462 Unknown [id number] .1.359661.3.579.2 .462 Unknown [id number] 2.16.840.1.083945.3.579.2 .462 Unknown [id number] 2.16.840.1.619023.3.579.2 .462 Unknown [id number] 2.16.840.1.732589.3.579.2 .462 Unknown [id number] 2.16.840.1.718611.3.579.2 .462 Unknown [id number] 2.16.840.1.696353.3.579.2 .462 Unknown [id number] 2.16.840.1.330254.3.579.2 .462 Unknown [id number] 2.16.840.1.046988.3.579.2 .462 Unknown [id number] 2.16.840.1.413684.3.579.2 .462 Unknown [id number] 2.16.840.1.111757.3.579.2 .462 Unknown [id number] 2.16.840.1.340347.3.579.2 .462 Unknown [id number] 2.16.840.1.404589.3.579.2 .462 Unknown [id number] 2.16.840.1.768321.3.579.2 .462 Unknown [id number] 2.16.840.1.294266.3.579.2 .462 Unknown [id number] 2.16.840.1.376940.3.579.2 .462 Unknown [id number] 2.16.840.1.788873.3.579.2 .462 Unknown [id number] 2.16.840.1.831143.3.579.2 .462 Social History Date Type Detail Facility Start: 07-04-2016 End: 07-19-2022 Tobacco smoking status IDIS Unknown if ever smoked [facility] Start: 1940 Sex Assigned At Female [facility] Start: 1940 Sex assigned at [facility] Gender identity Not on file [facility] in Progress note 10-05-2024 Note Date & Type Note Facility 10-05-2024 Note HNO ID: [id number] Author: DAVID ROCHA MD Service: ? Author [...] for the following reason(s): Benign exam Procedures [facility] History of Present illness Narrative 10-05-2024 [...] Benign exam Procedures documented in this encounter [facility] Clinical Note 04-16-2024 Note Date & Type Note Facility 04-16-2024 Note [facility] Records Department [address] [place] [address] History Physical Exam 04/16/24 1511 MR#: [id number] Acct: [id number] Name: ALISON SANTACRUZ Rep #: [id number] : 1940 83 From: Willie Friend DO PCP: Dr. Eddie Waggoner MD Status:[facility] Location: AC AC10-1 HPI - General General [...] stop this. She feels weak and fatigued. [facility] Medical History Arthritis Gastric reflux Wears [...] DAILY 07/14/22 12/15/23 Hi story glucosamine 750 wl-lelhkqbjxjp-efe 1 tab PO DAILY 07/14/22 04/15/24 History [...] Verified 04/16/24 13:29 paroxetine (From Paxil) AdvReac Sandy poorly Verified 04/16/24 13:29 rosuvastatin (From Crestor) [...] rectal bleeding, tenes (more content not included)... [facility] Clinical Note 12-19-2023 Note Date & Type Note Facility 12-19-2023 Note [facility] Records Department [address] [place] [address] History Physical Exam 12/19/23 1425 MR#: [id number] Acct: [id number] Name: ALISON SANTACRUZ Rep #: [id number] : 1940 83 From: Willie Friend DO PCP: Dr. Eddie Waggoner MD Status:[facility] Location: [place] [address] History and Physical Date of Admission: 12/19/23 OV 11.27.23 Pt reports that she is here to discuss possible hemorrhoid banding. Pt states that she has a terrible time going to the bathroom and does not want to continues having to take as many laxatives and stool softeners as she is. States that her last colonoscopy was 7-8 years ago. [facility] Medical History Abnormal EKG Varicose veins of [...] to the office today for establishment with [facility]. Pt has a PMHx of valvular [...] Appearance: average body habitus and well nourished [facility] Head: normal to inspection Ears: hearing grossly [...] recommended she sta (more content not included)... [facility] Evaluation note Note Date & Type Note Facility Evaluation note No assessment information availa ble [facility] Work Phone: Evaluation note Note Date & Type Note Facility Evaluation note Diagnosis Onset Date Leukopenia resolved Leukopenia resolved [facility] Work Phone: Evaluation note Note Date & Type Note Facility Evaluation note Diagnosis Influenza-like illness- Primary Influenza with other respiratory manifestations Nausea Nausea alone documented in this encounter [facility] Chief Complaint and Reason for Visit Chief Complaint RIGHT ANKLE Chief Complaint OSTEO Chief Complaint OSTEO Amb Documentation NEW PT - LEUKOPENIA lab 1WK REVIEW LABS E ORDER Reason for Visit Leukopenia Leukopenia Chief Complaint RLQ ABD PAIN/ ADD LA BWORK FOR [facility] Advance Directives No Advanced Directives Records Found Advance Directive Response Recorded Date/ Time Living Will Yes July 20, 2016 1 0:50am Power of Rod Finisher Yes July 20, 2016 10:50am Advance Directive Response Recorded Date/ Time Living Will Yes July 20, 2016 9 :50am Power of Rod Finisher Yes July 20, 2016 9:50am Family History [...] or prosecute any alcohol or drug abuse patient.[facility] Reason for Visit (unrecogniz ed section and content) Reason Comments Flu Like Symptoms X 3 days-diarrhea, s tomach hurts, nausea, hot and feels dizzy INFORMATION SOURCE (unrecogn ized section and content) DATE CREATED AUTHOR 10/07/2024 [facility] DATE CREATED AUTHOR AUTHOR'S ORGANIZ ATION 10/07/2024 [facility] FOR RECORDS PERTAINING TO PATIENTS WHO [...] BE BASED ON THE PRIMARY CLINICAL RECORDS. [employer] [facility]. provides no warranty or guarantee of the accuracy or completeness of information in this document.
--- OUTSIDE RECORDS SUMMARY | 2024-10-12 09:26 | XMS RPT_ITS | CCD ---
Author Organization [facility] Care Team Providers Care Erp Manager Name Role Phone DO Roxanna Lemus Primary [...] Triiodobenzoic Acids Allergy to substance 06-30-19 Rash [facility] (2 sources) atorvastatin Drug Allergy 07-26-19 Upset Stomach [facility] (2 sources) PARoxetine Drug Allergy 07-26-19 [place] poorly [facility] (2 sources) rosuvastatin Drug Allergy 07-26-19 Upset Stomach [facility] (2 sources) Simvastatin Drug Allergy 07-26-19 Upset Stomach [facility] (2 sources) HMG-CoA reductase inhibitor; Translations: [UMGEJFN-QAX-DNV REDUCTASE INHIBITORS] Drug Intolerance 10-06-19 Intolerance [facility] (1 source) atorvastatin Drug Allergy 10-07-19 [facility] (1 source) buPROPion Drug Allergy 10-07-19 [facility] (1 source) PARoxetine Drug Allergy 10-07-19 [facility] (1 source) rosuvastatin Drug Allergy 10-07-19 [facility] (1 source) Sertraline Drug Allergy 10-07-19 [facility] (1 source) Simvastatin Drug Allergy 10-07-19 [facility] (1 source) Iodinated Contrast Media Drug allergy (disorder) 10-07-19 [facility] Medications Current Medications Medication Drug [...] MG PO DAILY July 13, 2022 11:00pm Slruxffy-Ddbn-Unz6-C- Liset-Bosw (Osteo Bi-Flex Triple Strength) 1 EACH tablet (5 sources) Start: 07-04-2016 take 1 tablet by mouth once daily Xryajbyo-Hphx-Zts3-C- Liset-Bosw (Osteo Bi-Flex Triple Strength) 1 EACH tablet Active 2 EACH PO DAILY July 04, 2016 10:20am Start: 07-04-2016 End: 07-14-2022 take 1 tablet by mouth once daily Qntjzchj-Wzmb-Suz3-C-Liset-Bosw (Osteo Bi -Flex Triple Strength) 1 EACH tablet Discontinued 2 EACH PO DAILY July 03, 2016 11:00pm July 14, 2022 7:42am Start: 07-04-2016 End: 07-14-2022 take 1 tablet by mouth once daily Hvwafyld-Isnd-Wmk4-C-Liset-Bosw (Osteo Bi -Flex Triple Strength) 1 EACH tablet Discontinued 2 EACH PO DAILY July 04, 2016 12:00am July 14, 2022 8:42am Start: 07-04-2016 take 1 tablet by edna th once daily Dfcrsuyr-Jrlz-Pku8-C-Liset-Bosw (Osteo Bi -Flex Triple Strength) 1 EACH tablet Active 2 EACH PO DAILY July 04, 2016 12:00am Hntdvpoc-Uvwq-Bdy9-C-Liset-Osmany sw (Osteo Bi-Flex Triple Strength) 750 mg-644 mg- 30 mg-1 mg tablet (2 sources) Start: 07-14-2022 take 1 tablet by mouth once daily Ycmpeexl-Anlr-Eaa9-C-Liset-Bosw (Osteo Bi-Flex Triple Strength) 750 mg-644 mg- 30 mg-1 mg tablet Active 1 TABLET PO DAILY July 14, 2022 7:40am Start: 07-14-2022 take 1 tablet by edna th once daily Fpiyvlmc-Rmwl-Lve6-C-Liset-Bosw (Osteo Bi -Flex Triple Strength) 750 mg-644 [...] 11:00pm Start: 07-14-2022 take 1 tablet by ednauc [facility] once daily Multivitamin Active 1 TABLET PO DAILY July 14, 2022 12:00am [place] 4-Niy-Vmu-Fish Oil (Fish Oil) 60-90-500 mg capsule (2 sources) Start: 07-14-2022 take 1 capsule by mouth once daily [place] 8-Jzt-Twf-Fish Oil (Fish Oil) 60-90-500 mg capsule Active 1 CAP PO DAILY July 13, 2022 11:00pm Start: 07-14-2022 take 1 capsule by mo [facility] once daily [place] 3-Sff-Pnr-Fish Oil (Fish Oil) 60-90-500 mg capsule Active [...] 7:42am docusate sodium 50 mg / sennosides, correction 8.6 mg oral tablet (10 sources) Start: [...] Yon 10-06-2024 Abdomen/Pelvis W IV Cont ONLY [facility] Imaging Services [address] [place] [id number] Abdomen/Pelvis W IV Cont ONLY MR#: [id number] Acct: [id number] Name: ALISON SANTACRUZ Rep #: [id number] : 1940 F 84 From: Milo Holloway DO PCP: Dr. Eddie Waggoner MD Status: REG ER Study: Abdomen/Pelvis W IV Cont ONLY Date of Exam: Exam# [id number] Ordering Dr: Chris Phillips DO PROCEDURE: ABDOMEN/PELVIS [...] detected. Other findings as above. Reading Location: [facility] CC: Dr. hCris Phillips DO; Dr. Eddie Waggoner MD Access Rep: Signed Normal [facility] CBC W/Diff, Automatedon Absolute Lymph 1.12 X10 3/uL Normal 0.83-4.51 [facility] Comment on above: Performed By: #### L 100.0100, L501.2450, L500.4050 #### [facility] Laboratory [address] [place], [address] Absolute Neut 2.7 X10 3/uL Normal 2.0-7.7 [facility] Comment on above: Performed By: #### L 100.0100, L501.2450, L500.4050 #### [facility] [address] [place], [address] Basophils/100 WBC (Bld) 0.7 % Normal 0-1 [facility] Comment on above: Performed By: #### L 100.0100, L501.2450, L500.4050 #### [facility] [address] [place], [address] Eosinophils/100 WBC (Bld) 3.5 % Normal 0-5 [facility] Comment on above: Performed By: #### L 100.0100, L501.2450, L500.4050 #### [facility] [address] [place], [address] Erythrocyte distribution width (RBC) [Ratio] 11.9 % Normal 11.6-14.6 [facility] Comment on above: Performed By: #### L 100.0100, L501.2450, L500.4050 #### [facility] [address] [place], [address] Hematocrit (Bld) [Volume fraction] 34.6 % Low 37-47 [facility] Comment on above: Performed By: #### L 100.0100, L501.2450, L500.4050 #### [facility] [address] [place], [address] Hemoglobin (Bld) [Mass/Vol] 12.0 g/dL Normal 12.0-15.0 [facility] Comment on above: Performed By: #### L 100.0100, L501.2450, L500.4050 #### [facility] [address] [place], [address] IG% 0.500 Normal 0.0-0.9 [facility] Comment on above: Result Comment: IG% - Immature Granulocytes (promyelocytes, myelocytes and metamyelocytes) > 1% indicates that a LEFT SHIFT is Present. Performed By: #### L 100.0100, L501.2450, L500.4050 #### [facility] [address] [place], [address] Lymphocytes/100 WBC (Bld) 26.3 % Normal 19-41 [facility] Comment on above: Performed By: #### L 100.0100, L501.2450, L500.4050 #### [facility] [address] [place], [address] MCH (RBC) [Entitic mass] 30.9 pg Normal 27.0-32.0 [facility] Comment on above: Performed By: #### L 100.0100, L501.2450, L500.4050 #### [facility] [address] [place], [address] MCHC (RBC) [Mass/Vol] 34.7 g/dL Normal 32-36 [facility] Comment on above: Performed By: #### L 100.0100, L501.2450, L500.4050 #### [facility] [address] [place], [address] MCV (RBC) [Entitic vol] 89.2 fL Normal 81-99 [facility] Comment on above: Performed By: #### L 100.0100, L501.2450, L500.4050 #### [facility] [address] [place], [address] Monocytes/100 WBC (Bld) 6.3 % Normal 0-10 [facility] Comment on above: Performed By: #### L 100.0100, L501.2450, L500.4050 #### [facility] [address] [place], [address] Neutrophils/100 WBC (Bld) 62.7 % Normal 47-70 [facility] Comment on above: Performed By: #### L 100.0100, L501.2450, L500.4050 #### [facility] [address] [place], [address] Nucleated RBC (Bld) [#/Vol] 0 10*3/uL Normal 0-5 [facility] Comment on above: Performed By: #### L 100.0100, L501.2450, L500.4050 #### [facility] [address] [place], [address] Platelet mean volume (Bld) [Entitic vol] 8.3 fL Normal 6.2-12.0 [facility] Comment on above: Performed By: #### L 100.0100, L501.2450, L500.4050 #### [facility] [address] [place], [address] Platelets (Bld) [#/Vol] 170 10*3/uL Normal 150-450 [facility] Comment on above: Performed By: #### L 100.0100, L501.2450, L500.4050 #### [facility] [address] [place], [address] RBC (Bld) [#/Vol] 3.88 10*6/uL Low 4.2-5.4 [facility] Comment on above: Performed By: #### L 100.0100, L501.2450, L500.4050 #### [facility] [address] [place], [address] RDW SD 38.3 fl Normal 35.1-43.9 [facility] Comment on above: Performed By: #### L 100.0100, L501.2450, L500.4050 #### [facility] [address] [place], [address] WBC (Bld) [#/Vol] 4.3 10*3/uL Low 4.4-11.0 [facility] Comment on above: Performed By: #### L 100.0100, L501.2450, L500.4050 #### [facility] [address] [place], [address] Comprehensive Metabolic Prof ilon 10-06-2024 Albumin [Mass/Vol] 4.4 g/dL Normal 3.4-4.8 [facility] Comment on above: Performed By: #### L 100.0100, L501.2450, L500.4050 #### [facility] [address] [place], [address] Albumin/Globulin [Mass ratio] 1.9 {ratio} Normal 0.9-2.4 [facility] Comment on above: Performed By: #### L 100.0100, L501.2450, L500.4050 #### [facility] [address] [place], [address] ALK PHOS 73 U/L Normal 35-104 [facility] Comment on above: Performed By: #### L 100.0100, L501.2450, L500.4050 #### [facility] [address] [place], [address] ALT [Catalytic activity/Vol] 16 U/L Normal <=34 [facility] Comment on above: Performed By: #### L 100.0100, L501.2450, L500.4050 #### [facility] [address] [place], [address] AST [Catalytic activity/Vol] 18 U/L Normal <=31 [facility] Comment on above: Performed By: #### L 100.0100, L501.2450, L500.4050 #### [facility] [address] [place], [address] Bilirubin [Mass/Vol] 0.77 mg/dL Normal 0.00-1.30 [facility] Comment on above: Performed By: #### L 100.0100, L501.2450, L500.4050 #### [facility] [address] [place], [address] BUN/CRE 15.2 RATIO Normal 10-20 [facility] Comment on above: Performed By: #### L 100.0100, L501.2450, L500.4050 #### [facility] [address] [place], [address] Calcium [Mass/Vol] 9.1 mg/dL Normal 7.6-11.0 [facility] Comment on above: Performed By: #### L 100.0100, L501.2450, L500.4050 #### [facility] [address] [place], [address] Chloride [Moles/Vol] 100 mmol/L Normal 98-108 [facility] Comment on above: Performed By: #### L 100.0100, L501.2450, L500.4050 #### [facility] [address] [place], [address] CO2 [Moles/Vol] 25.6 mmol/L Normal 21.0-32.0 [facility] Comment on above: Performed By: #### L 100.0100, L501.2450, L500.4050 #### [facility] [address] [place], [address] Creatinine [Mass/Vol] 0.83 mg/dL Normal 0.70-1.20 [facility] Comment on above: Performed By: #### L 100.0100, L501.2450, L500.4050 #### [facility] [address] [place], [address] ECRCL 49.58 ml/min Low 50-250 [facility] Comment on above: Performed By: #### L 100.0100, L501.2450, L500.4050 #### [facility] [address] [place], [address] GAP 11 Normal 5-15 [facility] Comment on above: Performed By: #### L 100.0100, L501.2450, L500.4050 #### [facility] [address] [place], [address] GFR/1.73 sq M.predicted among non-blacks MDRD (S/P/Bld) [Vol rate/Area] 69 mL/min/{1.73_m2} Normal >60 [facility] Comment on above: Result Comment: mL/m in/1.73m2 CKD-EPI Creatinine Equation (2020) Performed By: #### L 100.0100, L501.2450, L500.4050 #### [facility] [address] [place], [address] Globulin (S) [Mass/Vol] 2.4 g/dL Normal 2.2-4.2 [facility] Comment on above: Performed By: #### L 100.0100, L501.2450, L500.4050 #### [facility] [address] [place], [address] Glucose [Mass/Vol] 121 mg/dL High 70-99 [facility] Comment on above: Performed By: #### L 100.0100, L501.2450, L500.4050 #### [facility] [address] [place], [address] Potassium [Moles/Vol] 4.0 mmol/L Normal 3.3-5.1 [facility] Comment on above: Performed By: #### L 100.0100, L501.2450, L500.4050 #### [facility] [address] [place], [address] Sodium [Moles/Vol] 137 mmol/L Normal 133-145 [facility] Comment on above: Performed By: #### L 100.0100, L501.2450, L500.4050 #### [facility] [address] [place], [address] T PROT 6.8 g/dL Normal 5.9-8.4 [facility] Comment on above: Performed By: #### L 100.0100, L501.2450, L500.4050 #### [facility] [address] [place], [address] Urea nitrogen [Mass/Vol] 13 mg/dL Normal 4-19 [facility] Comment on above: Performed By: #### L 100.0100, L501.2450, L500.4050 #### [facility] [address] [place], [address] Emergency Department Summary on 10-06-2024 Emergency Department Summary [facility] Medical Records Department [address] [place] [address] Emergency Department Summary 10/06/24 MR#: [id number] Acct: [id number] Name: ALISON SANTACRUZ Rep #: [id number] : 1940 84 From: Chris Phillips DO PCP: Dr. Eddie Waggoner MD Status:[facility] ER Location: ED ADDENDUM by Dr. [...] intact Psych: Cooperative, appropriate mood and affect [facility] Medical History Arthritis Gastric reflux Wears [...] DAILY 07/14/22 12/15/23 Hi story glucosamine 750 sr-srdgwpnqqgs-kub 1 tab PO DAILY 07/14/22 04/15/24 History [...] AdvReac Fel (more content not included)... Normal [facility] Lipaseon 10-06-2024 Lipase [Catalytic activity/Vol] 23 U/L Normal 13-75 [facility] Comment on above: Result Comment: Yuko joseph note: LIPASE revised reference range effective 22. New Lipase methodology. Expected to produce lower values than the previous assay method. NEW Reference Range: 13 - 75 U/L Performed By: #### L 100.0100, L501.2450, L500.4050 #### [facility] [address] [place], [address] Stool Occult Blood iFOBon STOB Positive Normal [facility] Comment on above: Performed By: #### P H.PYLORI #### [facility] [address] [place], [address] Urinalysis, Completeon 10-06 BACTERIA 0 SEEN Normal None Seen [facility] Comment on above: Order Comment: ONESIMO ELLISOR TO SPECIFY Performed By: #### P H.PYLORI #### [facility] [address] [place], [address] EPI,SQUAMOUS 0 SEEN Normal 5-10 [facility] Comment on above: Order Comment: ONESIMO CTOR TO SPECIFY Performed By: #### P H.PYLORI #### [facility] [address] [place], [address] Mucus Ql (Urine sed) 0 SEEN Normal [facility] Comment on above: Order Comment: ONESIMO CTOR TO SPECIFY Performed By: #### P H.PYLORI #### [facility] [address] [place], [address] RBC 0 SEEN Normal 0-5 [facility] Comment on above: Order Comment: ONESIMO CTOR TO SPECIFY Performed By: #### P H.PYLORI #### [facility] [address] [place], [address] WBC 0 SEEN Normal 0-5 [facility] Comment on above: Order Comment: ONESIMO CTOR TO SPECIFY Performed By: #### P H.PYLORI #### [facility] [address] [place], [address] CNOVon 10-05-2024 CNOV Office Visit ([facility]) -------- ALISON SANTACRUZ ([id number]) 1940 F Date Time Provider Department 10/05/24 [...] As of Date: 10/05/2024 Noted Allergy Reaction IQVFAQS-AMI-PIE REDUCTASE INHIBIT*10/05/2024 5 - Intolerance Date Reviewed: [...] Status:Closed by DAVID ROCHA on 10/05/24 Normal [facility] Shoulder min 2 Viewson 07-30 Shoulder min 2 Views [facility] Imaging Services [address] [place] [address] Shoulder min 2 Views MR#: [id number] Acct: [id number] Name: ALISON SANTACRUZ Rep #: [id number] : 1940 F 84 From: Zbigniew Martinez MD PCP: Dr. Eddie Waggoner MD Status: REG CLI Study: Shoulder min 2 Views Date of Exam: 07/30/24 Exam# [id number] Ordering Dr: Eddie Waggoner MD PROCEDURE: SHOULDER MIN 2 VIEWS 07/30/2024 REASON FOR EXAM: SHOULDER PAIN X 1 MONTH, NO INJURY TECHNIQUE: Four views right shoulder COMPARISON: None available FINDINGS: No fracture or dislocation. Mild glenohumeral joint osteoarthrosis. Aqbu-je-bnuxxhcd acromioclavicular joint osteoarthrosis with a downward directed osteophyte at the distal clavicle suggested. Visualized right lung appears clear. RAD/Shoulder min 2 Views IMPRESSION: Osteoarthrosis as above. Reading Location: [facility] CC: Dr. Eddie Waggoner MD Access Rep: Signed Normal [facility] Abdomen/Pelvis WITH Contrast on 06-20-2024 Abdomen/Pelvis WITH Contrast [facility] Imaging Services [address] [place] [address] Abdomen/Pelvis WITH Contrast MR#: [id number] Acct: [id number] Name: ALISON SANTACRUZ Rep #: [id number] : 1940 F 83 From: Celia lance MD PCP: Dr. Eddie Waggoner MD Status: REG CLI Study: Abdomen/Pelvis WITH Contrast Date of Exam: Exam# [id number] Ordering Dr: Rajwinder Luis PROCEDURE: ABDOMEN/PELVIS WITH [...] cystitis. 12. Moderate diffuse spondylosis. Reading Location: [place] [address] CC: Dr. Eddie Waggoner MD; LIZZETTE Edwards Access Rep: Signed Normal [facility] CBC W/Diff, Automatedon 03-2 Absolute Lymph 0.99 X10 3/uL Normal 0.83-4.51 [facility] Comment on above: Performed By: #### L 501.2450, L100.0100, L500.4050 ####[facility] [address] [place], [address] Absolute Neut 1.6 X10 3/uL Low 2.0-7.7 [facility] Comment on above: Performed By: #### L 501.2450, L100.0100, L500.4050 ####[facility] [address] [place], [address] Basophils/100 WBC (Bld) 1.6 % High 0-1 [facility] Comment on above: Performed By: #### L 501.2450, L100.0100, L500.4050 ####[facility] [address] [place], [address] Eosinophils/100 WBC (Bld) 7.2 % High 0-5 [facility] Comment on above: Performed By: #### L 501.2450, L100.0100, L500.4050 ####[facility] [address] [place], [address] Erythrocyte distribution width (RBC) [Ratio] 12.0 % Normal 11.6-14.6 [facility] Comment on above: Performed By: #### L 501.2450, L100.0100, L500.4050 ####[facility] [address] [place], [address] Hematocrit (Bld) [Volume fraction] 37.2 % Normal 37-47 [facility] Comment on above: Performed By: #### L 501.2450, L100.0100, L500.4050 ####[facility] [address] [place], [address] Hemoglobin (Bld) [Mass/Vol] 12.9 g/dL Normal 12.0-15.0 [facility] Comment on above: Performed By: #### L 501.2450, L100.0100, L500.4050 ####[facility] [address] [place], [address] IG% 0.600 Normal 0.0-0.9 [facility] Comment on above: Result Comment: IG% - Immature Granulocytes (promyelocytes, myelocytes and metamyelocytes) > 1% indicates that a LEFT SHIFT is Present. Performed By: #### L 501.2450, L100.0100, L500.4050 ####[facility] [address] [place], [address] Lymphocytes/100 WBC (Bld) 31.1 % Normal 19-41 [facility] Comment on above: Performed By: #### L 501.2450, L100.0100, L500.4050 ####[facility] [address] [place], [address] MCH (RBC) [Entitic mass] 30.6 pg Normal 27.0-32.0 [facility] Comment on above: Performed By: #### L 501.2450, L100.0100, L500.4050 ####[facility] [address] [place], [address] MCHC (RBC) [Mass/Vol] 34.7 g/dL Normal 32-36 [facility] Comment on above: Performed By: #### L 501.2450, L100.0100, L500.4050 ####[facility] [address] [place], [address] MCV (RBC) [Entitic vol] 88.4 fL Normal 81-99 [facility] Comment on above: Performed By: #### L 501.2450, L100.0100, L500.4050 ####[facility] [address] [place], [address] Monocytes/100 WBC (Bld) 10.1 % High 0-10 [facility] Comment on above: Performed By: #### L 501.2450, L100.0100, L500.4050 ####[facility] [address] [place], [address] Neutrophils/100 WBC (Bld) 49.4 % Normal 47-70 [facility] Comment on above: Performed By: #### L 501.2450, L100.0100, L500.4050 ####[facility] [address] [place], [address] Nucleated RBC (Bld) [#/Vol] 0 10*3/uL Normal 0-5 [facility] Comment on above: Performed By: #### L 501.2450, L100.0100, L500.4050 ####[facility] [address] [place], [address] Platelet mean volume (Bld) [Entitic vol] 8.7 fL Normal 6.2-12.0 [facility] Comment on above: Performed By: #### L 501.2450, L100.0100, L500.4050 ####[facility] [address] [place], [address] Platelets (Bld) [#/Vol] 178 10*3/uL Normal 150-450 [facility] Comment on above: Performed By: #### L 501.2450, L100.0100, L500.4050 ####[facility] [address] [place], [address] RBC (Bld) [#/Vol] 4.21 10*6/uL Normal 4.2-5.4 [facility] Comment on above: Performed By: #### L 501.2450, L100.0100, L500.4050 ####[facility] [address] [place], [address] RDW SD 38.6 fl Normal 35.1-43.9 [facility] Comment on above: Performed By: #### L 501.2450, L100.0100, L500.4050 ####[facility] [address] [place], [place], [address] WBC (Bld) [#/Vol] 3.2 10*3/uL Low 4.4-11.0 [facility] Comment on above: Performed By: #### L 501.2450, L100.0100, L500.4050 ####[facility] [address] [place], [address] Comprehensive Metabolic Prof ilon 05-31-2024 Albumin [Mass/Vol] 4.6 g/dL Normal 3.4-4.8 [facility] Comment on above: Performed By: #### L 501.2450, L100.0100, L500.4050 ####[facility] [address] [place], [address] Albumin/Globulin [Mass ratio] 2.0 {ratio} Normal 0.9-2.4 [facility] Comment on above: Performed By: #### L 501.2450, L100.0100, L500.4050 ####[facility] [address] [place], [address] ALK PHOS 70 U/L Normal 35-104 [facility] Comment on above: Performed By: #### L 501.2450, L100.0100, L500.4050 ####[facility] [address] [place], [address] ALT [Catalytic activity/Vol] 15 U/L Normal <=34 [facility] Comment on above: Performed By: #### L 501.2450, L100.0100, L500.4050 ####[facility] [address] [place], [address] AST [Catalytic activity/Vol] 21 U/L Normal <=31 [facility] Comment on above: Performed By: #### L 501.2450, L100.0100, L500.4050 ####[facility] [address] [place], [address] Bilirubin [Mass/Vol] 0.94 mg/dL Normal 0.00-1.30 [facility] Comment on above: Performed By: #### L 501.2450, L100.0100, L500.4050 ####[facility] [address] [place], [address] BUN/CRE 16.8 RATIO Normal 10-20 [facility] Comment on above: Performed By: #### L 501.2450, L100.0100, L500.4050 ####[facility] [address] [place], [address] Calcium [Mass/Vol] 9.5 mg/dL Normal 7.6-11.0 [facility] Comment on above: Performed By: #### L 501.2450, L100.0100, L500.4050 ####[facility] [address] [place], [address] Chloride [Moles/Vol] 103 mmol/L Normal 98-108 [facility] Comment on above: Performed By: #### L 501.2450, L100.0100, L500.4050 ####[facility] [address] [place], [address] CO2 [Moles/Vol] 22.3 mmol/L Normal 21.0-32.0 [facility] Comment on above: Performed By: #### L 501.2450, L100.0100, L500.4050 ####[facility] [address] [place], [address] GAP 15 Normal 5-15 [facility] Comment on above: Performed By: #### L 501.2450, L100.0100, L500.4050 ####[facility] [address] [place], [address] GFR/1.73 sq M.predicted among non-blacks MDRD (S/P/Bld) [Vol rate/Area] 67 mL/min/{1.73_m2} Normal >60 [facility] Comment on above: Result Comment: mL/m in/1.73m2 CKD-EPI Creatinine Equation (2020) Performed By: #### L 501.2450, L100.0100, L500.4050 ####[facility] [address] [place], [address] Globulin (S) [Mass/Vol] 2.3 g/dL Normal 2.2-4.2 [facility] Comment on above: Performed By: #### L 501.2450, L100.0100, L500.4050 ####[facility] [address] [place], [address] Potassium [Moles/Vol] 4.1 mmol/L Normal 3.3-5.1 [facility] Comment on above: Performed By: #### L 501.2450, L100.0100, L500.4050 ####[facility] [address] [place], [address] Sodium [Moles/Vol] 140 mmol/L Normal 133-145 [facility] Comment on above: Performed By: #### L 501.2450, L100.0100, L500.4050 ####[facility] [address] [place], [address] T PROT 6.9 g/dL Normal 5.9-8.4 [facility] Comment on above: Performed By: #### L 501.2450, L100.0100, L500.4050 ####[facility] [address] [place], [address] Creatinine [Mass/Vol] 0.85 mg/dL Normal 0.70-1.20 [facility] Comment on above: Performed By: #### L 501.2450, L100.0100, L500.4050 ####[facility] [address] [place], [address] Glucose [Mass/Vol] 97 mg/dL Normal 70-99 [facility] Comment on above: Performed By: #### L 501.2450, L100.0100, L500.4050 ####[facility] [address] [place], [address] Urea nitrogen [Mass/Vol] 14 mg/dL Normal 4-19 [facility] Comment on above: Performed By: #### L 501.2450, L100.0100, L500.4050 ####[facility] [address] [place], [address] Gastroenterology Visit Repor ton 05-31-2024 Gastroenterology Visit Report [facility] Gastroenterology [address] [place] [address] OFFICE VISIT Date of Service: 05/31/24 MR#: [id number] Acct: [id number] Name: ALISON SANTACRUZ Rep #: [id number] : 1940 Provider: LIZZETTE Edwards Age/Sex: 83/F Location: [facility] [place] Status: Signed Intake Vital Signs 04/16/24 13:36 Height 5 ft 6 in Intake Visit Reasons: Ongoing issues Chief Complaint: abdominal pain Allergies Iodinated Contrast Media Allergy (Verified 04/16/24 13:29) Rash atorvastatin (From Lipitor) Adverse Reaction (Verified 04/16/24 13:29) Upset Stomach bupropion (From Wellbutrin) Adverse Reaction (Verified 04/16/24 13:29) Other paroxetine (From Paxil) Adverse Reaction (Verified 04/16/24 13:29) [place] poorly rosuvastatin (From Crestor) Adverse Reaction (Verified [...] gallbladder. Continues taking pantoprazole and dicyclomine daily. [facility] Medical History Arthritis Gastric reflux Wears [...] for itchy (more content not included)... Normal [facility] Lipaseon 05-31-2024 Lipase [Catalytic activity/Vol] 26 U/L Normal 13-75 [facility] Comment on above: Result Comment: Yuko joseph note: LIPASE revised reference range effective 22. New Lipase methodology. Expected to produce lower values than the previous assay method. NEW Reference Range: 13 - 75 U/L Performed By: #### L 501.2450, L100.0100, L500.4050 ####[facility] [address] [place], [address] Stool Occult Blood iFOBon STOB Negative Normal [facility] Comment on above: Performed By: #### M 100.7900 #### [facility] [address] [place], [address] Abd Inc Decub and/or Erecton 05-30-2024 Abd Inc Decub and/or Erect [facility] Imaging Services [address] [place], [place] [address] Abd Inc Decub and/or Erect MR#: [id number] Acct: [id number] Name: ALISON SANTACRUZ Rep #: [id number] : 1940 F 83 From: Karel Mortensen MD PCP: Dr. Eddie Waggoner MD Status: REG CLI Study: Abd Inc Decub and/or Erect Date of Exam: 05/30 Exam# [id number] Ordering Dr: Eddie Waggoner MD EXAM: XR [...] consistent with constipation. Reading Location: [facility] CC: Dr. Eddie Waggoner MD Access Rep: Signed Normal [facility] Thyroid Stim Hormone (TSH)on 04-22-2024 TSH 2.120 uIU/mL Normal 0.358-3.740 [facility] Comment on above: Performed By: #### L 501.9520 #### [facility] [address] [facility] [place], [place], [address] EGD Reporton 04-16-2024 EGD Report [facility] Medical Records Department [address] [place] [address] EGD Report MR#: [id number] Acct: [id number] Name: ALISON SANTACRUZ Rep #: [id number] : 1940 83 From: Willie Shook DO PCP: Dr. Eddie Waggoner MD Status:REG [facility] Patient Name: Alison Santacruz Procedure Date: 04/16/2024 [...] pathology results. Procedure Code(s): --- Professional --- 99927, Esophagogastroduodenosco py, flexible, transoral; with biopsy, single or multiple CPT copyright 2021 [employer]. All rights reserved. The codes documented in this report are preliminary and upon union representative review may be revised to meet current compliance requirements. Willie Shook DO 04/16/2024 3:20:24 PM This report has been signed electronically. Number of Addenda: 0 Note Initiated On: 04/16/2024 2:52 PM 04/16/24 1520 Date Willie Shook DO Cosigner Signature: Date (if indicated) CC: Dr. Eddie Waggoner MD; Willie Shook DO Date Dictated: 04/16/24 3373 Date Transcribed: Access Rep: ES Signed Normal [facility] H Pylori (initial)on 025 H Pylori (initial) ---- Patient Age/Sex Location Account Attending Physician ALISON SANTACRUZ 83/F EN [id number] Willie Shook DO Specimen: [id number] Received: 04/17/24 Status: AKIRA Nogueraradha Num: [id number] Spec Type: IMMUNO Subm Dr: Willie Shook DO PHYSICIAN INSTITUTION [place] [address] SPECIMEN INFORMATION: Tissue Source: B- Gastric cardia biopsy, C- Distal esophagus biopsy Clinical Info: Heartburn, GERD Specimen Number: [id number] B,C CPT code: 45024l3,45092 METHODOLOGY: Deparaffinized sections of prefer/formalin-fixed tissue or [...] developed and their performance characteristics determined by [facility]. They may not have been [...] Dr. Alejandro Rashid MD 04/19/24 1151 Normal [facility] Comment on above: Performed By: #### P H.PYLORI #### [facility] [address] [facility] [place], [place], [address] MR/POSTOP.Prisca 04-16-2024 MR/POSTOP.[facility] Medical Records Department [address] [place] [address] Anesthesia Postop Eval I 04/16/241517 MR#: [id number] Acct: [id number] Name: ALISON SANTACRUZ Rep #: [id number] : 1940 83 From: Jim Middleton PCP: Dr. Eddie Waggoner MD Status:REG [facility] Y Race: C Location: [place] [address] Anesthesia: Postop Eval I Current Vital Signs [...] Jim Gregg Signature: Date CC: Signed Normal [facility] MR/AHLPRFXO9wl 04-16-2024 MR/POSTOPAN2 [facility] Medical Records Department [address] [place] [address] Anesthesia Postop Eval II 04/16/241830 MR#: [id number] Acct: [id number] Name: ALISON SANTACRUZ Rep #: [id number] : 1940 83 From: Oliver Kapoor MD PCP: Dr. Eddie Waggoner MD Status:DEP [facility] Y Race: C Location: EN Anesthesia Postop [...] MD Cosigner Signature: Date CC: Signed Normal [facility] Special Stain Group Ion 04-06 Special Stain Group I ------ Patient Age/Sex Location Account Attending Physician ALISON SANTACRUZ 83/F [place] [id number] Willie Shook DO Specimen: [id number] Received: 04/17/24 Status: AKIRA Kelly Num: [id number] Spec Type: EGD BIOPSY [place] Dr: Willie [...] for Helicobacter pylori will be reported separately ([id number]). C. Alcian blue/PAS stain with matched control is used in the evaluation of the specimen. Immunohistochemistry ([id number]) for P53 and Ki-67 will be performed, [...] Account Attending Physician ALISON SANTACRUZ 83/F EN [id number] Willieonur Shook DO tissue that in aggregate [...] totally submitted in one cassette. 04/17/2024 TC:3 [facility]:[id number] Patient Age/Sex Location Account Attending Physician ALISON SANTACRUZ 83/F [place] [id number] Willie Shook DO Signed (signature on file) Dr. Alejandro Rashid MD 04/19/24 0934 Normal [facility] Comment on above: Performed By: #### P H.PYLORI #### [facility] [address] [place], [place], [address] MR/PATGary 04-15-2024 /PAT.[facility] Medical Records Department [address] [place] [address] PAT - Anesthesia 04/15/24 1032 MR#: [id number] Acct: [id number] Name: ALISON SANTACRUZ Rep #: [id number] : 1940 83 From: Casey Staley MD PCP: Dr. 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 History - dramatic reader Hx Hospitalization No 04/11/24 15:16 Any Problems [...] take am of surgery PONV PONV - dramatic reader: PONV - dramatic reader Female Yes 04/11/24 15:16 HX of Motion [...] 12/19/23 13:28 Respiratory Assessment Respiratory Assessment - dramatic reader: Respiratory Tract Infection Hx - dramatic reader Hx Respiratory Tract Infection No 04/11/24 15:16 STOP Sleep Apnea STOP Sleep Apnea - dramatic reader: STOP Sleep Apnea - dramatic reader Hx Hypertension Yes: CONTROLLED ON MEDS 04/11/24 [...] 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 Use History - dramatic reader: Tobacco Use History - dramatic reader Tobacco Use Smoking Status Never smoker 04/11/24 15:16 Hx Tobacco Use No 04/11/24 15:16 Years Smoking Packs Smoked per Day Smoking Cessation Date was within the last 15 years Hx Smoking Cessation Date Hx Smoking Cessation Counseling Hematologic Medial History Hematologic Hx - 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 Normal [facility] CBC W/Diff, Automatedon 12- Absolute Lymph 1.41 X10 3/uL Normal 0.83-4.51 [facility] Comment on above: Performed By: #### L 100.0100, L500.4050, L501.2450 #### [facility] [address] [place], [address] Absolute Neut 2.6 X10 3/uL Normal 2.0-7.7 [facility] Comment on above: Performed By: #### L 100.0100, L500.4050, L501.2450 #### [facility] [address] [place], [address] Basophils/100 WBC (Bld) 1.0 % Normal 0-1 [facility] Comment on above: Performed By: #### L 100.0100, L500.4050, L501.2450 #### [facility] [address] [place], [address] Eosinophils/100 WBC (Bld) 4.4 % Normal 0-5 [facility] Comment on above: Performed By: #### L 100.0100, L500.4050, L501.2450 #### [facility] [address] [place], [address] Erythrocyte distribution width (RBC) [Ratio] 11.9 % Normal 11.6-14.6 [facility] Comment on above: Performed By: #### L 100.0100, L500.4050, L501.2450 #### [facility] [address] [place], [address] Hematocrit (Bld) [Volume fraction] 38.2 % Normal 37-47 [facility] Comment on above: Performed By: #### L 100.0100, L500.4050, L501.2450 #### [facility] [address] [place], [address] Hemoglobin (Bld) [Mass/Vol] 12.9 g/dL Normal 12.0-15.0 [facility] Comment on above: Performed By: #### L 100.0100, L500.4050, L501.2450 #### [facility] [address] [place], [address] IG% 1.000 High 0.0-0.9 [facility] Comment on above: Result Comment: IG% - Immature Granulocytes (promyelocytes, myelocytes and metamyelocytes) > 1% indicates that a LEFT SHIFT is Present. Performed By: #### L 100.0100, L500.4050, L501.2450 #### [facility] [address] [place], [address] Lymphocytes/100 WBC (Bld) 29.5 % Normal 19-41 [facility] Comment on above: Performed By: #### L 100.0100, L500.4050, L501.2450 #### [facility] [address] [place], [address] MCH (RBC) [Entitic mass] 30.1 pg Normal 27.0-32.0 [facility] Comment on above: Performed By: #### L 100.0100, L500.4050, L501.2450 #### [facility] [address] [place], [address] MCHC (RBC) [Mass/Vol] 33.8 g/dL Normal 32-36 [facility] Comment on above: Performed By: #### L 100.0100, L500.4050, L501.2450 #### [facility] [address] [place], [address] MCV (RBC) [Entitic vol] 89.0 fL Normal 81-99 [facility] Comment on above: Performed By: #### L 100.0100, L500.4050, L501.2450 #### [facility] [address] [place], [address] Monocytes/100 WBC (Bld) 8.8 % Normal 0-10 [facility] Comment on above: Performed By: #### L 100.0100, L500.4050, L501.2450 #### [facility] [address] [place], [address] Neutrophils/100 WBC (Bld) 55.3 % Normal 47-70 [facility] Comment on above: Performed By: #### L 100.0100, L500.4050, L501.2450 #### [facility] [address] [place], [address] Nucleated RBC (Bld) [#/Vol] 0 10*3/uL Normal 0-5 [facility] Comment on above: Performed By: #### L 100.0100, L500.4050, L501.2450 #### [facility] [address] [place], [address] Platelet mean volume (Bld) [Entitic vol] 8.6 fL Normal 6.2-12.0 [facility] Comment on above: Performed By: #### L 100.0100, L500.4050, L501.2450 #### [facility] [address] [place], [address] Platelets (Bld) [#/Vol] 193 10*3/uL Normal 150-450 [facility] Comment on above: Performed By: #### L 100.0100, L500.4050, L501.2450 #### [facility] [address] [place], [address] RBC (Bld) [#/Vol] 4.29 10*6/uL Normal 4.2-5.4 [facility] Comment on above: Performed By: #### L 100.0100, L500.4050, L501.2450 #### [facility] [address] [place], [address] RDW SD 38.3 fl Normal 35.1-43.9 [facility] Comment on above: Performed By: #### L 100.0100, L500.4050, L501.2450 #### [facility] [address] [place], [address] WBC (Bld) [#/Vol] 4.8 10*3/uL Normal 4.4-11.0 [facility] Comment on above: Performed By: #### L 100.0100, L500.4050, L501.2450 #### [facility] [address] [place], [address] Comprehensive Metabolic Prof [facility] 02-16-2024 Albumin [Mass/Vol] 3.9 g/dL Normal 3.2-5.0 [facility] Comment on above: Performed By: #### L 100.0100, L500.4050, L501.2450 #### [facility] [address] [place], [address] Albumin/Globulin [Mass ratio] 1.3 {ratio} Normal 0.9-2.4 [facility] Comment on above: Performed By: #### L 100.0100, L500.4050, L501.2450 #### [facility] [address] [place], [address] ALK P 63 U/L Normal 45-117 [facility] Comment on above: Performed By: #### L 100.0100, L500.4050, L501.2450 #### [facility] [address] [place], [address] ALT [Catalytic activity/Vol] 23 U/L Normal 13-56 [facility] Comment on above: Performed By: #### L 100.0100, L500.4050, L501.2450 #### [facility] [address] [place], [address] AST [Catalytic activity/Vol] 12 U/L Low 15-37 [facility] Comment on above: Performed By: #### L 100.0100, L500.4050, L501.2450 #### [facility] [address] [place], [address] Bilirubin [Mass/Vol] 1.00 mg/dL Normal 0.20-1.00 [facility] Comment on above: Result Comment: For patients on eltrombopag therapy, use of Dimension [place] TBIL is not recommended. Performed By: #### L 100.0100, L500.4050, L501.2450 #### [facility] [address] [place], [address] BUN/CRE 16.3 RATIO Normal 10-20 [facility] Comment on above: Performed By: #### L 100.0100, L500.4050, L501.2450 #### [facility] [address] [place], [address] CA,Total 9.4 mg/dL Normal 8.5-10.1 [facility] Comment on above: Performed By: #### L 100.0100, L500.4050, L501.2450 #### [facility] [address] [place], [address] Chloride [Moles/Vol] 103 mmol/L Normal 98-107 [facility] Comment on above: Performed By: #### L 100.0100, L500.4050, L501.2450 #### [facility] [address] [place], [address] CO2 [Moles/Vol] 30.0 mmol/L Normal 21.0-32.0 [facility] Comment on above: Performed By: #### L 100.0100, L500.4050, L501.2450 #### [facility] [address] [place], [address] Creatinine [Mass/Vol] 0.86 mg/dL Normal 0.55-1.02 [facility] Comment on above: Result Comment: The validity of the calculated GFR GFRAA in patients over 70 years has not been determined. Clinical correlation is essential. Performed By: #### L 100.0100, L500.4050, L501.2450 #### [facility] [address] [place], [address] EST GFR - AA 81 mL/min Normal >60 [facility] Comment on above: Result Comment: Afri can [place] GFR Calc Performed By: #### L 100.0100, L500.4050, L501.2450 #### [facility] [address] [place], [address] GAP 4 Low 5-15 [facility] Comment on above: Performed By: #### L 100.0100, L500.4050, L501.2450 #### [facility] [address] [place], [address] GFR/1.73 sq M.predicted among non-blacks MDRD (S/P/Bld) [Vol rate/Area] 67 mL/min/{1.73_m2} Normal >60 [facility] Comment on above: Result Comment: Non- GFR Calc Performed By: #### L 100.0100, L500.4050, L501.2450 #### [facility] [address] [place], [address] Globulin (S) [Mass/Vol] 2.9 g/dL Normal 2.2-4.2 [facility] Comment on above: Performed By: #### L 100.0100, L500.4050, L501.2450 #### [facility] [address] [place], [address] Glucose [Mass/Vol] 94 mg/dL Normal 74-106 [facility] Comment on above: Performed By: #### L 100.0100, L500.4050, L501.2450 #### [facility] [address] [place], [address] Potassium [Moles/Vol] 4.4 mmol/L Normal 3.5-5.1 [facility] Comment on above: Performed By: #### L 100.0100, L500.4050, L501.2450 #### [facility] [address] [place], [address] Sodium [Moles/Vol] 137 mmol/L Normal 136-145 [facility] Comment on above: Performed By: #### L 100.0100, L500.4050, L501.2450 #### [facility] [address] [place], [address] T PROT 6.8 g/dL Normal 6.4-8.2 [facility] Comment on above: Performed By: #### L 100.0100, L500.4050, L501.2450 #### [facility] [address] [place], [address] Urea nitrogen [Mass/Vol] 14 mg/dL Normal 7-18 [facility] Comment on above: Performed By: #### L 100.0100, L500.4050, L501.2450 #### [facility] Laboratory [address] [place], [address] Gastroenterology Visit Repor ton 02-16-2024 Gastroenterology Visit Report [facility] Gastroenterology [address] [place] [address] OFFICE VISIT Date of Service: 02/16/24 MR#: [id number] Acct: [id number] Name: ALISON SANTACRUZ Rep #: [id number] : 1940 Provider: LIZZETTE Edwards Age/Sex: 83/F Location: [facility] [place] Status: Signed Intake Vital Signs 12/19/23 13:28 Height 5 ft 6 in Intake Visit Reasons: Diarrhea Chief Complaint: black tarry stools Allergies Iodinated Contrast Media Allergy (Verified 12/19/23 13:25) Rash atorvastatin (From Lipitor) Adverse Reaction (Verified 12/19/23 13:25) Upset Stomach bupropion (From Wellbutrin) Adverse Reaction (Verified 12/19/23 13:25) Other paroxetine (From Paxil) Adverse Reaction (Verified 12/19/23 13:25) [place]ston poorly rosuvastatin (From Crestor) Adverse Reaction (Verified [...] BM. Reports poor appetite due to nausea. [facility] Medical History (Updated 02/16/24 @ 09:31 [...] Appearance: average body habitus and well nourished HENPR Head: normal to inspection Ears: hearing grossly normal bilaterally Nose: external nose normal Eyes General: appearance normal, osmany (more content not included)... Normal [facility] Lipaseon 02-16-2024 Lipase [Catalytic activity/Vol] 37 U/L Normal 13-75 [facility] Comment on above: Result Comment: Juareza se note: LIPASE revised reference range effective 22. New Lipase methodology. Expected to produce lower values than the previous assay method. NEW Reference Range: 13 - 75 U/L Performed By: #### L 100.0100, L500.4050, L501.2450 ####[facility] [address] [place], [address] Colonoscopy Reporton 024 Colonoscopy Report [facility] Medical Records Department [address] [place] [address] Colonoscopy Report MR#: [id number] Acct: [id number] Name: ALISON SANTACRUZ Rep #: [id number] : 1940 83 From: [facility] Friend DO PCP: Dr. Eddie Waggoner MD Status:REG SDC Patient Name: Alison Santacurz Procedure Date: 12/19/2023 2:28 PM Date of [...] present medications. Procedure Code(s): --- Professional --- 89321, Colonoscopy, flexible; with band ligation(s) (eg, hemorrhoids) CPT copyright 2021 [employer]. All rights reserved. The codes documented in this report are preliminary and upon union representative review may be revised to meet current compliance requirements. Willie Shook DO 12/19/2023 3:16:04 PM This report has been signed electronically. Number of Addenda: 0 Note Initiated On: 12/19/2023 2:28 PM 12/19/23 1516 Date Willie Shook DO Cosigner Signature: Date (if indicated) CC: Dr. Eddie Waggoner MD; Willie Shook DO Date Dictated: 12/19/23 1428 Date Transcribed: Access Rep: ES Signed [facility] MR/POSTOP.Pirsca 12-19-2023 MR/POSTOP.[facility] Medical Records Department [address] [place] [address] Anesthesia Postop Eval I 12/19/23 1517 MR#: [id number] Acct: [id number] Name: ALISON SANTACRUZ Rep #: [id number] : 1940 83 From: Jim Middleton PCP: Dr. Eddie Waggoner MD Status:[facility] Y Race: C Location: [place] [address] Anesthesia: Postop Eval I Current Vital Signs [...] Jim Gregg Signature: Date CC: Signed Normal [facility]/[id number] 12-19-2023 /[facility] Medical Records Department [address] [place] [address] Anesthesia Postop Eval II 12/19/23 1702 MR#: [id number] Acct: [id number] Name: ALISON SANTACRUZ Rep #: [id number] : 1940 83 From: Oliver Kapoor MD PCP: Dr. Eddie Waggoner MD Status:[facility] Y Race: C Location: [place] Anesthesia [...] Oliver Griffinignvalentina Signature: Date CC: Signed Normal [facility] Gastroenterology Visit Repor ton 11-27-2023 Gastroenterology Visit Report [facility] Gastroenterology [address] [place] [address] OFFICE VISIT Date of Service: 11/27/23 MR#: [id number] Acct: [id number] Name: ALISON SANTACRUZ Rep #: [id number] : 1940 Provider: LIZZETTE Edwards Age/Sex: 83/F [place] [facility]: Signed Intake Vital Signs 08/09/23 09:12 Height 5 ft 5 in Intake Visit Reasons: Hemorrhoids Chief Complaint: hemrrhoids, nausea Allergies Iodinated Contrast Media Allergy (Verified 11/17/23 13:31) Rash atorvastatin (From Lipitor) Adverse Reaction (Verified 11/17/23 13:31) Upset Stomach bupropion (From Wellbutrin) Adverse Reaction (Verified 11/17/23 13:31) Other paroxetine (From Paxil) Adverse Reaction (Verified 11/17/23 13:31) [place] poorly rosuvastatin (From Crestor) Adverse Reaction (Verified [...] PO DAILY 07/14/22 11/17/23 History glucosamine 750 yi-ntbmalbqiop-nvf 1 tab PO DAILY 07/14/22 11/17/23 History no1 644 mg-C 30 mg-liset 1 mg tablet (Osteo Bi-Flex Triple Strength) levothyroxine 137 mcg tablet 137 mcg PO DAILY 07/14/22 11/17/23 History multivitamin 1 tab PO DAILY 07/14/22 11/17/23 History omega 0-hxu-xjw-fish oil 60 mg-90 1 cap PO DAILY [...] her last colonoscopy was 7-8 years ago. [facility] Medical History Abnormal EKG Varicose veins [...] to the office today for establishment with [facility]. Pt has a PMHx of valvular [...] Musculoskeletal: Posi (more content not included)... Normal [facility] Sinus/Facial Boneon 10-27-19 Sinus/Facial Bone [facility] Imaging Services [address] [place] [address] Sinus/Facial Bone MR#: [id number] Acct: [id number] Name: ALISON SANTACRUZ Rep #: [id number] : 1940 F 83 From: Ramon toledo MD PCP: Dr. Eddie Waggoner MD Status: REG CLI Study: Sinus/Facial Bone Date of Exam: 10/27/23 Exam# [id number] Ordering Dr: Balaji Avitia MD [id number] STUDY: CT MAXILLOFACIAL SINUSES REASON FOR EXAM: [...] Balaji Avitia MD; Dr. Eddie Waggoner MD Access Rep: Signed Normal [facility] CBC W/Diff, Automatedon 10-05 Absolute Lymph 1.39 X10 3/uL Normal 0.83-4.51 [facility] Comment on above: Order Comment: Order Date: 10/26/23Order Info: 0184-1 - CBCD Performed By: #### L 500.4050, L500.4100, L501.9520, L100.0100 ####[facility] [address] [place], [address] Absolute Neut 2.8 X10 3/uL Normal 2.0-7.7 [facility] Comment on above: Order Comment: Order Date: 10/26/23Order Info: 0184-1 - CBCD Performed By: #### L 500.4050, L500.4100, L501.9520, L100.0100 ####[facility] [address] [place], [address] Basophils/100 WBC (Bld) 0.8 % Normal 0-1 [facility] Comment on above: Order Comment: Order Date: 10/26/23Order Info: 0184-1 - CBCD Performed By: #### L 500.4050, L500.4100, L501.9520, L100.0100 ####[facility] [address] [place], [address] Eosinophils/100 WBC (Bld) 4.0 % Normal 0-5 [facility] Comment on above: Order Comment: Order Date: 10/26/23Order Info: 0184-1 - CBCD Performed By: #### L 500.4050, L500.4100, L501.9520, L100.0100 ####[facility] [address] [place], [address] Erythrocyte distribution width (RBC) [Ratio] 11.9 % Normal 11.6-14.6 [facility] Comment on above: Order Comment: Order Date: 10/26/23Order Info: 0184-1 - CBCD Performed By: #### L 500.4050, L500.4100, L501.9520, L100.0100 ####[facility] [address] [place], [address] Hematocrit (Bld) [Volume fraction] 35.4 % Low 37-47 [facility] Comment on above: Order Comment: Order Date: 10/26/23Order Info: 018- - CBCD Performed By: #### L 500.4050, L500.4100, L501.9520, L100.0100 ####[facility] [address] [place], [address] Hemoglobin (Bld) [Mass/Vol] 12.0 g/dL Normal 12.0-15.0 [facility] Comment on above: Order Comment: Order Date: 10/26/23Order Info: 0184- - CBCD Performed By: #### L 500.4050, L500.4100, L501.9520, L100.0100 ####[facility] [address] [place], [address] IG% 0.600 Normal 0.0-0.9 [facility] Comment on above: Order Comment: Order Date: 10/26/23Order Info: 0184-1 - CBCD Result Comment: IG% - Immature Granulocytes (promyelocytes, myelocytes and metamyelocytes) > 1% indicates that a LEFT SHIFT is Present. Performed By: #### L 500.4050, L500.4100, L501.9520, L100.0100 ####[facility] [address] [place], [address] Lymphocytes/100 WBC (Bld) 29.1 % Normal 19-41 [facility] Comment on above: Order Comment: Order Date: 10/26/23Order Info: 018-1 - CBCD Performed By: #### L 500.4050, L500.4100, L501.9520, L100.0100 ####[facility] [address] [place], [address] MCH (RBC) [Entitic mass] 30.2 pg Normal 27.0-32.0 [facility] Comment on above: Order Comment: Order Date: 10/26/23Order Info: 018- - CBCD Performed By: #### L 500.4050, L500.4100, L501.9520, L100.0100 ####[facility] [address] [place], [address] MCHC (RBC) [Mass/Vol] 33.9 g/dL Normal 32-36 [facility] Comment on above: Order Comment: Order Date: 10/26/23Order Info: 018- - CBCD Performed By: #### L 500.4050, L500.4100, L501.9520, L100.0100 ####[facility] [address] [place], [address] MCV (RBC) [Entitic vol] 88.9 fL Normal 81-99 [facility] Comment on above: Order Comment: Order Date: 10/26/23Order Info: 018- - CBCD Performed By: #### L 500.4050, L500.4100, L501.9520, L100.0100 ####[facility] [address] [place], [address] Monocytes/100 WBC (Bld) 6.9 % Normal 0-10 [facility] Comment on above: Order Comment: Order Date: 10/26/23Order Info: 0184-1 - CBCD Performed By: #### L 500.4050, L500.4100, L501.9520, L100.0100 ####[facility] [address] [place], [address] Neutrophils/100 WBC (Bld) 58.6 % Normal 47-70 [facility] Comment on above: Order Comment: Order Date: 10/26/23Order Info: 0184-1 - CBCD Performed By: #### L 500.4050, L500.4100, L501.9520, L100.0100 ####[facility] [address] [place], [address] Nucleated RBC (Bld) [#/Vol] 0 10*3/uL Normal 0-5 [facility] Comment on above: Order Comment: Order Date: 10/26/23Order Info: 018- - CBCD Performed By: #### L 500.4050, L500.4100, L501.9520, L100.0100 ####[facility] [address] [place], [address] Platelet mean volume (Bld) [Entitic vol] 8.7 fL Normal 6.2-12.0 [facility] Comment on above: Order Comment: Order Date: 10/26/23Order Info: 018- - CBCD Performed By: #### L 500.4050, L500.4100, L501.9520, L100.0100 ####[facility] [address] [place], [address] Platelets (Bld) [#/Vol] 198 10*3/uL Normal 150-450 [facility] Comment on above: Order Comment: Order Date: 10/26/23Order Info: 0184-1 - CBCD Performed By: #### L 500.4050, L500.4100, L501.9520, L100.0100 ####[facility] [address] [place], [address] RBC (Bld) [#/Vol] 3.98 10*6/uL Low 4.2-5.4 [facility] Comment on above: Order Comment: Order Date: 10/26/23Order Info: 0184-1 - CBCD Performed By: #### L 500.4050, L500.4100, L501.9520, L100.0100 ####[facility] [address] [place], [address] RDW SD 37.7 fl Normal 35.1-43.9 [facility] Comment on above: Order Comment: Order Date: 10/26/23Order Info: 0184-1 - CBCD Performed By: #### L 500.4050, L500.4100, L501.9520, L100.0100 ####[facility] [address] [place], [address] WBC (Bld) [#/Vol] 4.8 10*3/uL Normal 4.4-11.0 [facility] Comment on above: Order Comment: Order Date: 10/26/23Order Info: 0184-1 - CBCD Performed By: #### L 500.4050, L500.4100, L501.9520, L100.0100 ####[facility] [address] [place], [address] Comprehensive Metabolic Prof ilon 10-26-2023 Albumin [Mass/Vol] 3.6 g/dL Normal 3.2-5.0 [facility] Comment on above: Order Comment: Order Date: 10/26/23Order Info: [id number] - CMPOrder Info: [id number] - LIPIDOrder Info: [id number] - TSH Performed By: #### L 500.4050, L500.4100, L501.9520, L100.0100 ####[facility] [address] [place], [address] Albumin/Globulin [Mass ratio] 1.1 {ratio} Normal 0.9-2.4 [facility] Comment on above: Order Comment: Order Date: 10/26/23Order Info: [id number] - CMPOrder Info: [id number] - LIPIDOrder Info: [id number] - TSH Performed By: #### L 500.4050, L500.4100, L501.9520, L100.0100 ####[facility] [address] [place], [address] ALK P 70 U/L Normal 45-117 [facility] Comment on above: Order Comment: Order Date: 10/26/23Order Info: [id number] - CMPOrder Info: [id number] - LIPIDOrder Info: [id number] - TSH Performed By: #### L 500.4050, L500.4100, L501.9520, L100.0100 ####[facility] [address] [place], [address] ALT [Catalytic activity/Vol] 26 U/L Normal 13-56 [facility] Comment on above: Order Comment: Order Date: 10/26/23Order Info: [id number] - CMPOrder Info: [id number] - LIPIDOrder Info: [id number] - TSH Performed By: #### L 500.4050, L500.4100, L501.9520, L100.0100 ####[facility] [address] [place], [address] AST [Catalytic activity/Vol] 23 U/L Normal 15-37 [facility] Comment on above: Order Comment: Order Date: 10/26/23Order Info: [id number] - CMPOrder Info: [id number] - LIPIDOrder Info: [id number] - TSH Performed By: #### L 500.4050, L500.4100, L501.9520, L100.0100 ####[facility] [address] [place], [address] Bilirubin [Mass/Vol] 0.70 mg/dL Normal 0.20-1.00 [facility] Comment on above: Order Comment: Order Date: 10/26/23Order Info: 07-1 - CMPOrder Info: [id number] - LIPIDOrder Info: [id number] - TSH Result Comment: For patients on eltrombopag therapy, use of Dimension [place] TBIL is not recommended. Performed By: #### L 500.4050, L500.4100, L501.9520, L100.0100 ####[facility] [address] [place], [address] BUN/CRE 16.8 RATIO Normal 10-20 [facility] Comment on above: Order Comment: Order Date: 10/26/23Order Info: 07-1 - CMPOrder Info: [id number] - LIPIDOrder Info: 6-3 - TSH Performed By: #### L 500.4050, L500.4100, L501.9520, L100.0100 ####[facility] [address] [place], [address] CA,Total 8.7 mg/dL Normal 8.5-10.1 [facility] Comment on above: Order Comment: Order Date: 10/26/23Order Info: 07-1 - CMPOrder Info: [id number] - LIPIDOrder Info: [id number] - TSH Performed By: #### L 500.4050, L500.4100, L501.9520, L100.0100 ####[facility] [address] [place], [address] Chloride [Moles/Vol] 104 mmol/L Normal 98-107 [facility] Comment on above: Order Comment: Order Date: 10/26/23Order Info: 07-1 - CMPOrder Info: [id number] - LIPIDOrder Info: [id number] - TSH Performed By: #### L 500.4050, L500.4100, L501.9520, L100.0100 ####[facility] [address] [place], [address] CO2 [Moles/Vol] 30.0 mmol/L Normal 21.0-32.0 [facility] Comment on above: Order Comment: Order Date: 10/26/23Order Info: 07-1 - CMPOrder Info: [id number] - LIPIDOrder Info: 3 - TSH Performed By: #### L 500.4050, L500.4100, L501.9520, L100.0100 ####[facility] [address] [place], [address] Creatinine [Mass/Vol] 0.83 mg/dL Normal 0.55-1.02 [facility] Comment on above: Order Comment: Order Date: 10/26/23Order Info: 785- - CMPOrder Info: [id number] - LIPIDOrder Info: [id number] - TSH Result Comment: The validity of the calculated GFR GFRAA in patients over 70 years has not been determined. Clinical correlation is essential. Performed By: #### L 500.4050, L500.4100, L501.9520, L100.0100 ####[facility] [address] [place], [address] EST GFR - AA 84 mL/min Normal >60 [facility] Comment on above: Order Comment: Order Date: 10/26/23Order Info: 785- - CMPOrder Info: [id number] - LIPIDOrder Info: [id number] - TSH Result Comment: Afri can Faroese GFR Calc Performed By: #### L 500.4050, L500.4100, L501.9520, L100.0100 ####[facility] [address] [place], [address] GAP 5 Normal 5-15 [facility] Comment on above: Order Comment: Order Date: 10/26/23Order Info: 785- - CMPOrder Info: [id number] - LIPIDOrder Info: 3 - TSH Performed By: #### L 500.4050, L500.4100, L501.9520, L100.0100 ####[facility] [address] [place], [address] GFR/1.73 sq M.predicted among non-blacks MDRD (S/P/Bld) [Vol rate/Area] 69 mL/min/{1.73_m2} Normal >60 [facility] Comment on above: Order Comment: Order Date: 10/26/23Order Info: 785-1 - CMPOrder Info: [id number] - LIPIDOrder Info: [id number] - TSH Result Comment: Non- GFR Calc Performed By: #### L 500.4050, L500.4100, L501.9520, L100.0100 ####[facility] [address] [place], [address] Globulin (S) [Mass/Vol] 3.4 g/dL Normal 2.2-4.2 [facility] Comment on above: Order Comment: Order Date: 10/26/23Order Info: 785- - CMPOrder Info: [id number] - LIPIDOrder Info: 3 - TSH Performed By: #### L 500.4050, L500.4100, L501.9520, L100.0100 ####[facility] [address] [place], [address] Glucose [Mass/Vol] 104 mg/dL Normal 74-106 [facility] Comment on above: Order Comment: Order Date: 10/26/23Order Info: 07- - CMPOrder Info: [id number] - LIPIDOrder Info: [id number] - TSH Result Comment: Fast ing Glucose result from 100 to 125 mg/dL suggests IMPAIRED HOMEOSTASIS per A.D.A. criteria. Performed By: #### L 500.4050, L500.4100, L501.9520, L100.0100 ####[facility] [address] [place], [address] Potassium [Moles/Vol] 3.7 mmol/L Normal 3.5-5.1 [facility] Comment on above: Order Comment: Order Date: 10/26/23Order Info: 785- - CMPOrder Info: [id number] - LIPIDOrder Info: [id number] - TSH Performed By: #### L 500.4050, L500.4100, L501.9520, L100.0100 ####[facility] [address] [place], [address] Sodium [Moles/Vol] 139 mmol/L Normal 136-145 [facility] Comment on above: Order Comment: Order Date: 10/26/23Order Info: 86-1 - CMPOrder Info: [id number] - LIPIDOrder Info: 3 - TSH Performed By: #### L 500.4050, L500.4100, L501.9520, L100.0100 ####[facility] [address] [place], [address] T PROT 7.0 g/dL Normal 6.4-8.2 [facility] Comment on above: Order Comment: Order Date: 10/26/23Order Info: 785- - CMPOrder Info: [id number] - LIPIDOrder Info: [id number] - TSH Performed By: #### L 500.4050, L500.4100, L501.9520, L100.0100 ####[facility] [address] [place], [address] Urea nitrogen [Mass/Vol] 14 mg/dL Normal 7-18 [facility] Comment on above: Order Comment: Order Date: 10/26/23Order Info: 785- - CMPOrder Info: [id number] - LIPIDOrder Info: [id number] - TSH Performed By: #### L 500.4050, L500.4100, L501.9520, L100.0100 ####[facility] [address] [place], [address] Lipid Profileon 10-26-2023 Cholesterol [Mass/Vol] 254 mg/dL High 200 [facility] Comment on above: Order Comment: Order Date: 10/26/23Order Info: 0786-1 - CMPOrder Info: [id number] - LIPIDOrder Info: [id number] - TSH Result Comment: <200 mg/dL Desirable 200-240 mg/dL Borderline >240 mg/dL High Risk Performed By: #### L 500.4050, L500.4100, L501.9520, L100.0100 ####[facility] [address] [place], [address] Cholesterol in HDL [Mass/Vol] 56 mg/dL Normal [facility] Comment on above: Order Comment: Order Date: 10/26/23Order Info: [id number] - CMPOrder Info: [id number] - LIPIDOrder Info: [id number] - TSH Result Comment: The drugs N-Acetylcysteine and Metamizole may falsely depress this assay. Reference Range HDL <40 mg/dL Low HDL Cholesterol HDL >or= 60 mg/dL High HDL Cholesterol Performed By: #### L 500.4050, L500.4100, L501.9520, L100.0100 ####[facility] [address] [place], [address] Cholesterol in LDL [Mass/Vol] 150 mg/dL High 0-130 [facility] Comment on above: Order Comment: Order Date: 10/26/23Order Info: [id number] - CMPOrder Info: - LIPIDOrder Info: [id number] - TSH Performed By: #### L 500.4050, L500.4100, L501.9520, L100.0100 ####[facility] [address] [place], [address] Cholesterol in VLDL [Mass/Vol] 48 mg/dL High 5-40 [facility] Comment on above: Order Comment: Order Date: 10/26/23Order Info: [id number] - CMPOrder Info: [id number] - LIPIDOrder Info: [id number] - TSH Performed By: #### L 500.4050, L500.4100, L501.9520, L100.0100 ####[facility] [address] [place], [address] Triglyceride [Mass/Vol] 242 mg/dL High [facility] Comment on above: Order Comment: Order Date: 10/26/23Order Info: 0786-1 - CMPOrder Info: [id number] - LIPIDOrder Info: [id number] - TSH Result Comment: The drugs N-Acetylcysteine and Metamizole may falsely depress this assay. Serum Triglycerides Reference Interval Normal <150 mg/dL Borderline high 150 - 199 mg/dL High 200 - 499 mg/dL Very High > or = 500 mg/dL Performed By: #### L 500.4050, L500.4100, L501.9520, L100.0100 ####[facility] [address] [place], [place], [id number] Thyroid Stim Hormone (TSH)on 10-26-2023 TSH 3.110 uIU/mL Normal 0.358-3.740 [facility] Comment on above: Order Comment: Order Date: 10/26/23Order Info: 0786- - CMPOrder Info: [id number] - LIPIDOrder Info: [id number] - TSH Performed By: #### L 500.4050, L500.4100, L501.9520, L100.0100 ####[facility] [address] [facility] [place], [place], [id number] Absolute lymphocyte countOrd ered By: Tila Bailey on 01-17-2023 Lymphocytes Auto (Unsp spec) [#/Vol] 0.50 10*3/uL 0.83-4.51 [facility] Basophil percentageOrdered B y: Tila Bailey on 01-17-2023 Creatinine [Mass/Vol] 1.0 mg/dL 0.55-1.02 [facility] Basophils/100 WBC (Bld) 0.3 % 0-1 [facility] Bilirubin [Mass/Vol] 0.70 mg/dL 0.20-1.00 [facility] Comment on above: For patients on eltr ombopag therapy, use of Dimension [place] TBIL is not recommended. Chloride [Moles/Vol] 105 mmol/L 98-107 [facility] Cholesterol [Mass/Vol] 264 mg/dL <200 [facility] Comment on above: <200 mg/dL Desirable 200-240 mg/dL Borderline >240 mg/dL High Risk Eosinophils/100 WBC (Bld) 2.5 % 0-5 [facility] Glucose [Mass/Vol] 150 mg/dL 74-106 [facility] Comment on above: Fasting Glucose resu lt greater than or equal to 126 mg/dL suggests DIABETES MELLITUS per A.D.A. criteria. Neutrophils (Bld) [#/Vol] 5.4 10*3/uL 2.0-7.7 [facility] Neutrophils/100 WBC (Bld) 84.7 % 47-70 [facility] Potassium [Moles/Vol] 4.1 mmol/L 3.5-5.1 [facility] Protein [Mass/Vol] 7.9 g/dL 6.4-8.2 [facility] Sodium [Moles/Vol] 139 mmol/L 136-145 [facility] Triglyceride [Mass/Vol] 60 mg/dL <199 [facility] Comment on above: The drugs N-Acetylcy steine and Metamizole may falsely depress this assay.Serum Triglycerides Reference Interval Normal <150 mg/dL Borderline high 150 - 199 mg/dL High 200 - 499 mg/dL Very High > or = 500 mg/dL WBC (Bld) [#/Vol] 6.4 10*3/uL 4.4-11.0 [facility] Blood erythrocytes count (nu mber/volume)Ordered By: Tila Bailey on 01-17-2023 RBC (Bld) [#/Vol] 4.36 10*6/uL 4.2-5.4 [facility] Blood hemoglobin measurement (mass/volume)Ordered By: Tila Bailey on 01-17-2023 Hemoglobin (Bld) [Mass/Vol] 12.7 g/dL 12.0-15.0 [facility] Blood lymphocytes/100 leukoc ytesOrdered By: Tila Bailey on 01-17-2023 Lymphocytes/100 WBC (Bld) 7.9 % 19-41 [facility] Blood manual differential co mment interpretation (narrative result)Ordered By: Tila Bailey on 01-17-2023 Manual differential comment Mehdi (Bld) [Interp] SCANNED [facility] Blood monocytes/100 leukocyt esOrdered By: Tila Bailey on 01-17-2023 Monocytes/100 WBC (Bld) 4.1 % 0-10 [facility] Blood platelet mean volumeOr dered By: Tila Bailey on 01-17-2023 Platelet mean volume (Bld) [Entitic vol] 8.7 fL 6.2-12.0 [facility] Determination of erythrocyte mean corpuscular volume (MCV)Ordered By: Tila Bailey on 01-17-2023 MCV (RBC) [Entitic vol] 89.0 fL 81-99 [facility] Hematocrit Auto (Bld) [Volum e fraction]Ordered By: Tila Bailey on 01-17-2023 Hematocrit (Bld) [Volume fraction] 38.8 % 37-47 [facility] Laboratory - Chemistry and C hemistry - challengeOrdered By: Tila Bailey on 01-17-2023 GFR/1.73 sq M.predicted among non-blacks MDRD (S/P/Bld) [Vol rate/Area] 54.0000 mL/min/{1.73_m2} >60 [facility] ALP [Catalytic activity/Vol] 70 U/L 45-117 [facility] ALT [Catalytic activity/Vol] 27 U/L 13-56 [facility] CO2 [Moles/Vol] 27.0 mmol/L 21.0-32.0 [facility] Globulin (S) [Mass/Vol] 3.9 g/dL 2.2-4.2 [facility] Urea nitrogen/Creatinine [Mass ratio] 18.3 mg/mg 10-20 [facility] Laboratory - Hematology and Cell countsOrdered By: Tila Bailey on 01-17-2023 Erythrocyte distribution width (RBC) [Entitic vol] 39.1 fL 35.1-43.9 [facility] Erythrocyte distribution width (RBC) [Ratio] 12.0 % 11.6-14.6 [facility] Immature granulocytes/100 WBC (Bld) 0.500 % 0.0-0.9 [facility] Comment on above: IG% - Immature Granu locytes (promyelocytes, myelocytes and metamyelocytes) > 1% indicates that a LEFT SHIFT is Present. MCH (RBC) [Entitic mass] 29.1 pg 27.0-32.0 [facility] Nucleated RBC/100 [facility] (Bld) [Ratio] 0 % [facility] [Mass/Vol]Or dered By: Tila Bailey on 01-17-2023 MCHC (RBC) [Mass/Vol] 32.7 g/dL 32-36 [facility] No Panel InformationOrdered By: Tila Bailey on 01-17-2023 Estimated GFR (MDRD) Amer 74 mL/min >60 [facility] Comment on above: GFR Calc Estimated GFR (MDRD) Non-Af Amer 61 mL/min >60 [facility] Comment on above: Non- GFR Calc Thyroid Stimulating Hormone (TSH) 0.86 uIU/mL 0.358-3.74 [facility] Vitamin D 25-Hydroxy 102.0 ng/mL [facility] Comment on above: Vitamin D 25(OH) [...] 01-17-2023 Platelets (Bld) [#/Vol] 207 10*3/uL 150-450 [facility] Serum or plasma albumin jose martin urement (mass/volume)Ordered By: Tila Bailey on 01-17-2023 Albumin [Mass/Vol] 4.0 g/dL 3.2-5.0 [facility] Serum or plasma albumin/glob ulin mass ratioOrdered By: Tila Bailey on 01-17-2023 Albumin/Globulin [Mass ratio] 1.0 {ratio} 0.9-2.4 [facility] Serum or plasma calcium jose martin urement (mass/volume)Ordered By: Tila Bailey on 01-17-2023 Calcium [Mass/Vol] 9.3 mg/dL 8.5-10.1 [facility] Serum or plasma cholesterol in HDL measurement (mass/volume)Ordered By: Tila Bailey on 01-17-2023 Cholesterol in HDL [Mass/Vol] 81 mg/dL >40 [facility] Comment on above: The drugs N-Acetylcy steine and Metamizole may falsely depress this assay. Reference Range HDL <40 mg/dL Low HDL Cholesterol HDL >or= 60 mg/dL High HDL Cholesterol Serum or plasma cholesterol in VLDL measurement (mass/volume)Ordered By: Tila Bailey on 01-17-2023 Cholesterol in VLDL [Mass/Vol] 12 mg/dL 5-40 [facility] Serum or plasma creatinine m easurement (mass/volume)Ordered By: Tila Bailey on 01-17-2023 Creatinine [Mass/Vol] 0.93 mg/dL 0.55-1.02 [facility] Comment on above: The validity of the calculated GFR & GFRAA in patients over 70 years has not been determined. Clinical correlation is essential. Serum or plasma low density lipoprotein (LDL) cholesterol measurement (mass/volume)Ordered By: Tila Bailey on 01-17-2023 Cholesterol in LDL [Mass/Vol] 171 mg/dL 0-130 [facility] Serum or plasma urea nitroge n measurement (mass/volume)Ordered By: Tila Bailey on 01-17-2023 Urea nitrogen [Mass/Vol] 17 mg/dL 7-18 [facility] Thin prep Papanicolaou smear with manual screeningOrdered By: Tila Bailey on 01-17-2023 Thin prep Papanicolaou smear with manual screening 16 U/L 15-37 [facility] Thin prep Papanicolaou smear with manual screening 7 5-15 [facility] Laboratory - Chemistry and C hemistry - challengeOrdered By: Roxanna Lemus on 09-15-2022 Free T4 [Mass/Vol] 1.19 ng/dL 0.76-1.46 [facility] No Panel InformationOrdered By: Roxanna Allan on 09-15-2022 Thyroid Stimulating Hormone (TSH) 2.38 uIU/mL 0.358-3.74 [facility] Absolute lymphocyte countOrd ered By: Vernon Garrett on 07-19-2022 Lymphocytes Auto (Unsp spec) [#/Vol] 1.39 10*3/uL 0.83-4.51 [facility] Basophil percentageOrdered B y: Vernon Garrett on 07-19-2022 Basophils/100 WBC (Bld) 0.6 % 0-1 [facility] Bilirubin [Mass/Vol] 0.50 mg/dL 0.20-1.00 [facility] Comment on above: For patients on eltr ombopag therapy, use of Dimension [place] TBIL is not recommended. Chloride [Moles/Vol] 106 mmol/L 98-107 [facility] Eosinophils/100 WBC (Bld) 8.1 % 0-5 [facility] Glucose [Mass/Vol] 119 mg/dL 74-106 [facility] Comment on above: Fasting Glucose resu lt from 100 to 125 mg/dL suggests IMPAIRED HOMEOSTASIS per A.D.A. criteria. LDH [Catalytic activity/Vol] 188 U/L 84-246 [facility] Neutrophils (Bld) [#/Vol] 2.6 10*3/uL 2.0-7.7 [facility] Neutrophils/100 WBC (Bld) 53.9 % 47-70 [facility] Potassium [Moles/Vol] 4.1 mmol/L 3.5-5.1 [facility] Protein [Mass/Vol] 7.5 g/dL 6.4-8.2 [facility] Sodium [Moles/Vol] 139 mmol/L 136-145 [facility] WBC (Bld) [#/Vol] 4.8 10*3/uL 4.4-11.0 [facility] Blood erythrocytes count (nu mber/volume)Ordered By: Vernon Garrett on 07-19-2022 RBC (Bld) [#/Vol] 4.23 10*6/uL 4.2-5.4 [facility] Blood hemoglobin measurement (mass/volume)Ordered By: Vernon Garrett on 07-19-2022 Hemoglobin (Bld) [Mass/Vol] 12.7 g/dL 12.0-15.0 [facility] Blood lymphocytes/100 leukoc ytesOrdered By: Vernon Garrett on 07-19-2022 Lymphocytes/100 WBC (Bld) 28.9 % 19-41 [facility] Blood monocytes/100 leukocyt esOrdered By: Vernon Garrett on 07-19-2022 Monocytes/100 WBC (Bld) 8.3 % 0-10 [facility] Blood platelet mean volumeOr dered By: Vernon Garrett on 07-19-2022 Platelet mean volume (Bld) [Entitic vol] 8.4 fL 6.2-12.0 [facility] Determination of erythrocyte mean corpuscular volume (MCV)Ordered By: Vernon Garrett on 07-19-2022 MCV (RBC) [Entitic vol] 89.6 fL 81-99 [facility] Erythrocyte sedimentation ra teOrdered By: Vernon Garrett on 07-19-2022 ESR (Bld) [Velocity] 12 mm/h 0-30 [facility] Hematocrit Auto (Bld) [Volum e fraction]Ordered By: Vernon Garrett on 07-19-2022 Hematocrit (Bld) [Volume fraction] 37.9 % 37-47 [facility] Hemoglobin in reticulocytes (mass per reticulocyte)Ordered By: Vernon Garrett on 07-19-2022 Hemoglobin (Reticulocytes) [Entitic mass] 32.7 pg 30-35 [facility] Iron measurement (mass/mass) Ordered By: Vernon Garrett on 07-19-2022 Iron (Unsp spec) [Mass/Mass] 55 ug/dL 50-170 [facility] Laboratory - Chemistry and C hemistry - challengeOrdered By: Vernno Garrett on 07-19-2022 ALP [Catalytic activity/Vol] 106 U/L 45-117 [facility] ALT [Catalytic activity/Vol] 30 U/L 13-56 [facility] CO2 [Moles/Vol] 27.0 mmol/L 21.0-32.0 [facility] Cobalamin (Vitamin B12) [Mass/Vol] 428 pg/mL 211-911 [facility] Globulin (S) [Mass/Vol] 3.6 g/dL 2.2-4.2 [facility] Urea nitrogen/Creatinine [Mass ratio] 21.3 mg/mg 10-20 [facility] Laboratory - Hematology and Cell countsOrdered By: Vernon Garrett on 07-19-2022 Erythrocyte distribution width (RBC) [Entitic vol] 41.0 fL 35.1-43.9 [facility] Erythrocyte distribution width (RBC) [Ratio] 12.4 % 11.6-14.6 [facility] Immature granulocytes/100 WBC (Bld) 0.200 % 0.0-0.9 [facility] Comment on above: IG% - Immature Granu locytes (promyelocytes, myelocytes and metamyelocytes) > 1% indicates that a LEFT SHIFT is Present. MCH (RBC) [Entitic mass] 30.0 pg 27.0-32.0 [facility] Nucleated RBC/100 WBC (Bld) [Ratio] 0 % 0-5 [facility] MCHC Auto (RBC) [Mass/Vol]Or dered By: Vernon Garrett on 07-19-2022 MCHC (RBC) [Mass/Vol] 33.5 g/dL 32-36 [facility] No Panel InformationOrdered By: Vernon Garrett on 07-19-2022 Estimated GFR (MDRD) Amer 78 mL/min >60 [facility] Comment on above: GFR Calc Estimated GFR (MDRD) Non-Af Amer 64 mL/min >60 [facility] Comment on above: Non- GFR Calc Immature Reticulocyte Fraction 5.80 % 3.00-15.90 [facility] Reticulocyte Count 1.11 % 0.5-1.5 [facility] Total Iron Binding Capacity 319 ug/dL 250-450 [facility] Platelets bldOrdered By: David Garrett on 07-19-2022 Platelets (Bld) [#/Vol] 182 10*3/uL 150-450 [facility] Serum or plasma C reactive p rotein measurement (mass/volume)Ordered By: Vernon Garrett on 07-19-2022 CRP [Mass/Vol] mg/L 0.0-3.0 [facility] Comment on above: C-Reactive Protein ( CRP) provides useful information for thediagnosis, therapy and monitoring of inflammatory processesand associated diseases. For the evaluation of Relative Riskfor Cardiovascular Disease, a High Sensitivity CRP (HSCRP)should be ordered. Serum or plasma albumin jose martin urement (mass/volume)Ordered By: Vernon Hola on 07-19-2022 Albumin [Mass/Vol] 3.9 g/dL 3.2-5.0 [facility] Serum or plasma albumin/glob ulin mass ratioOrdered By: Vernon Simental on 07-19-2022 Albumin/Globulin [Mass ratio] 1.1 {ratio} 0.9-2.4 [facility] Serum or plasma calcium jose martin urement (mass/volume)Ordered By: Vernon Simental on 07-19-2022 Calcium [Mass/Vol] 9.1 mg/dL 8.5-10.1 [facility] Serum or plasma creatinine m easurement (mass/volume)Ordered By: Vernon [facility] on 07-19-2022 Creatinine [Mass/Vol] 0.89 mg/dL 0.55-1.02 [facility] Comment on above: The validity of the calculated GFR & GFRAA in patients over 70 years has not been determined. Clinical correlation is essential. Serum or plasma ferritin manuela surement (mass/volume)Ordered By: Vernon Simental on 07-19-2022 Ferritin [Mass/Vol] 55 ng/mL 8-252 [facility] Serum or plasma folate measu rement (mass/volume)Ordered By: Vernon Simental on 07-19-2022 Folate [Mass/Vol] 49.60 ng/mL 3.1-55.4 [facility] Serum or plasma iron saturat ion measurement (mass fraction)Ordered By: Vernon [facility] on 07-19-2022 Iron saturation [Mass fraction] 17.2 % 15.0-55.0 [facility] Serum or plasma urea nitroge n measurement (mass/volume)Ordered By: Vernon Garrett on 07-19-2022 Urea nitrogen [Mass/Vol] 19 mg/dL 7-18 [facility] Thin prep Papanicolaou smear with manual screeningOrdered By: Vernon Garrett on 07-19-2022 Thin prep Papanicolaou smear with manual screening 20 U/L 15-37 [facility] Thin prep Papanicolaou smear with manual screening 6 5-15 [facility] Absolute lymphocyte countOrd ered By: Roxanna Lemus on 07-05-2022 Lymphocytes Auto (Unsp spec) [#/Vol] 1.06 10*3/uL 0.83-4.51 [facility] Basophil percentageOrdered B y: Roxanna Lemus on 07-05-2022 Basophils/100 WBC (Bld) 0.7 % 0-1 [facility] Eosinophils/100 WBC (Bld) 9.7 % 0-5 [facility] Neutrophils (Bld) [#/Vol] 1.2 10*3/uL 2.0-7.7 [facility] Neutrophils/100 WBC (Bld) 41.5 % 47-70 [facility] WBC (Bld) [#/Vol] 2.8 10*3/uL 4.4-11.0 [facility] Blood erythrocytes count (nu mber/volume)Ordered By: Roxanna Lemus on 07-05-2022 RBC (Bld) [#/Vol] 4.23 10*6/uL 4.2-5.4 [facility] Blood hemoglobin measurement (mass/volume)Ordered By: Roxanna Lemus on 07-05-2022 Hemoglobin (Bld) [Mass/Vol] 12.6 g/dL 12.0-15.0 [facility] Blood lymphocytes/100 leukoc ytesOrdered By: Roxanna Lemus on 07-05-2022 Lymphocytes/100 WBC (Bld) 38.0 % 19-41 [facility] Blood monocytes/100 leukocyt esOrdered By: Roxanna Lemus on 07-05-2022 Monocytes/100 WBC (Bld) 9.7 % 0-10 [facility] Blood platelet mean volumeOr dered By: Roxanna Lemus on 07-05-2022 Platelet mean volume (Bld) [Entitic vol] 8.9 fL 6.2-12.0 [facility] Determination of erythrocyte mean corpuscular volume (MCV)Ordered By: Roxanna Lemus on 07-05-2022 MCV (RBC) [Entitic vol] 90.5 fL 81-99 [facility] Hematocrit Auto (Bld) [Volum e fraction]Ordered By: Roxanna Lemus on 07-05-2022 Hematocrit (Bld) [Volume fraction] 38.3 % 37-47 [facility] Laboratory - Hematology and Cell countsOrdered By: Roxanna Lemus on 07-05-2022 Erythrocyte distribution width (RBC) [Entitic vol] 41.6 fL 35.1-43.9 [facility] Erythrocyte distribution width (RBC) [Ratio] 12.6 % 11.6-14.6 [facility] Immature granulocytes/100 WBC (Bld) 0.400 % 0.0-0.9 [facility] Comment on above: IG% - Immature Granu locytes (promyelocytes, myelocytes and metamyelocytes) > 1% indicates that a LEFT SHIFT is Present. MCH (RBC) [Entitic mass] 29.8 pg 27.0-32.0 [facility] Nucleated RBC/100 WBC (Bld) [Ratio] 0 % 0-5 [facility] MCHC Auto (RBC) [Mass/Vol]Or dered By: Roxanna Lemus on 07-05-2022 MCHC (RBC) [Mass/Vol] 32.9 g/dL 32-36 [facility] No Panel InformationOrdered By: Sandra Sheppard on 07-05-2022 Thyroid Stimulating Hormone (TSH) 4.94 uIU/mL 0.358-3.74 [facility] Platelets bldOrdered By: Abhijit Lemus on 07-05-2022 Platelets (Bld) [#/Vol] 198 10*3/uL 150-450 [facility] Absolute lymphocyte countOrd ered By: Roxanna Lemus on 06-07-2022 Lymphocytes Auto (Unsp spec) [#/Vol] 1.09 10*3/uL 0.83-4.51 [facility] Basophil percentageOrdered B y: Roxanna Lemus on 06-07-2022 Basophils/100 WBC (Bld) 1.1 % 0-1 [facility] Bilirubin [Mass/Vol] 1.10 mg/dL 0.20-1.00 [facility] Comment on above: For patients on eltr ombopag therapy, use of Dimension [place] TBIL is not recommended. Chloride [Moles/Vol] 107 mmol/L 98-107 [facility] Cholesterol [Mass/Vol] 252 mg/dL <200 [facility] Comment on above: <200 mg/dL Desirable 200-240 mg/dL Borderline >240 mg/dL High Risk Eosinophils/100 WBC (Bld) 10.7 % 0-5 [facility] Glucose [Mass/Vol] 94 mg/dL 74-106 [facility] Neutrophils (Bld) [#/Vol] 1.1 10*3/uL 2.0-7.7 [facility] Neutrophils/100 WBC (Bld) 39.6 % 47-70 [facility] Potassium [Moles/Vol] 3.9 mmol/L 3.5-5.1 [facility] Protein [Mass/Vol] 7.4 g/dL 6.4-8.2 [facility] Sodium [Moles/Vol] 139 mmol/L 136-145 [facility] Triglyceride [Mass/Vol] 94 mg/dL <199 [facility] Comment on above: The drugs N-Acetylcy steine and Metamizole may falsely depress this assay.Serum Triglycerides Reference Interval Normal <150 mg/dL Borderline high 150 - 199 mg/dL High 200 - 499 mg/dL Very High > or = 500 mg/dL WBC (Bld) [#/Vol] 2.7 10*3/uL 4.4-11.0 [facility] Blood erythrocytes count (nu mber/volume)Ordered By: Roxanna Lemus on 06-07-2022 RBC (Bld) [#/Vol] 4.13 10*6/uL 4.2-5.4 [facility] Blood hemoglobin measurement (mass/volume)Ordered By: Roxanna Lemus on 06-07-2022 Hemoglobin (Bld) [Mass/Vol] 12.1 g/dL 12.0-15.0 [facility] Blood lymphocytes/100 leukoc ytesOrdered By: Roxanna Lemus on 06-07-2022 Lymphocytes/100 WBC (Bld) 40.1 % 19-41 [facility] Blood monocytes/100 leukocyt esOrdered By: Roxanna Lemus on 06-07-2022 Monocytes/100 WBC (Bld) 8.1 % 0-10 [facility] Blood platelet mean volumeOr dered By: Roxanna Lemus on 06-07-2022 Platelet mean volume (Bld) [Entitic vol] 8.8 fL 6.2-12.0 [facility] Determination of erythrocyte mean corpuscular volume (MCV)Ordered By: Roxanna Lemus on 06-07-2022 MCV (RBC) [Entitic vol] 88.6 fL 81-99 [facility] Hematocrit Auto (Bld) [Volum e fraction]Ordered By: Roxanna Lemus on 06-07-2022 Hematocrit (Bld) [Volume fraction] 36.6 % 37-47 [facility] Laboratory - Chemistry and C hemistry - challengeOrdered By: Roxanna Lemus on 06-07-2022 ALP [Catalytic activity/Vol] 84 U/L 45-117 [facility] ALT [Catalytic activity/Vol] 26 U/L 13-56 [facility] CO2 [Moles/Vol] 27.0 mmol/L 21.0-32.0 [facility] Globulin (S) [Mass/Vol] 3.6 g/dL 2.2-4.2 [facility] Urea nitrogen/Creatinine [Mass ratio] 19.4 mg/mg 10-20 [facility] Laboratory - Hematology and Cell countsOrdered By: Roxanna Lemus on 06-07-2022 Erythrocyte distribution width (RBC) [Entitic vol] 41.2 fL 35.1-43.9 [facility] Erythrocyte distribution width (RBC) [Ratio] 12.8 % 11.6-14.6 [facility] Immature granulocytes/100 WBC (Bld) 0.400 % 0.0-0.9 [facility] Comment on above: IG% - Immature Granu locytes (promyelocytes, myelocytes and metamyelocytes) > 1% indicates that a LEFT SHIFT is Present. MCH (RBC) [Entitic mass] 29.3 pg 27.0-32.0 [facility] Nucleated RBC/100 WBC (Bld) [Ratio] 0 % 0-5 [facility] MCHC Auto (RBC) [Mass/Vol]Or dered By: Roxanna Lemus on 06-07-2022 MCHC (RBC) [Mass/Vol] 33.1 g/dL 32-36 [facility] No Panel InformationOrdered By: Roxanna Lemus on 06-07-2022 Estimated GFR (MDRD) Amer 79 mL/min >60 [facility] Comment on above: GFR Calc Estimated GFR (MDRD) Non-Af Amer 65 mL/min >60 [facility] Comment on above: Non- GFR Calc Thyroid Stimulating Hormone (TSH) 32.30 uIU/mL 0.358-3.74 [facility] Platelets bldOrdered By: Abhijit Lemus on 06-07-2022 Platelets (Bld) [#/Vol] 188 10*3/uL 150-450 [facility] Serum or plasma albumin jose martin urement (mass/volume)Ordered By: Roxanna Lemus on 06-07-2022 Albumin [Mass/Vol] 3.8 g/dL 3.2-5.0 [facility] Serum or plasma albumin/glob ulin mass ratioOrdered By: Roxanna Lemus on 06-07-2022 Albumin/Globulin [Mass ratio] 1.1 {ratio} 0.9-2.4 [facility] Serum or plasma calcium jose martin urement (mass/volume)Ordered By: Roxanna Lemus on 06-07-2022 Calcium [Mass/Vol] 8.9 mg/dL 8.5-10.1 [facility] Serum or plasma cholesterol in HDL measurement (mass/volume)Ordered By: Roxanna Lemus on 06-07-2022 Cholesterol in HDL [Mass/Vol] 66 mg/dL >40 [facility] Comment on above: The drugs N-Acetylcy steine and Metamizole may falsely depress this assay. Reference Range HDL <40 mg/dL Low HDL Cholesterol HDL >or= 60 mg/dL High HDL Cholesterol Serum or plasma cholesterol in VLDL measurement (mass/volume)Ordered By: Roxanna Lemus on 06-07-2022 Cholesterol in VLDL [Mass/Vol] 19 mg/dL 5-40 [facility] Serum or plasma creatinine m easurement (mass/volume)Ordered By: Roxanna Lemus on 06-07-2022 Creatinine [Mass/Vol] 0.88 mg/dL 0.55-1.02 [facility] Comment on above: The validity of the calculated GFR & GFRAA in patients over 70 years has not been determined. Clinical correlation is essential. Serum or plasma low density lipoprotein (LDL) cholesterol measurement (mass/volume)Ordered By: Roxanna Lemus on 06-07-2022 Cholesterol in LDL [Mass/Vol] 167 mg/dL 0-130 [facility] Serum or plasma urea nitroge n measurement (mass/volume)Ordered By: Roxanna Lemus on 06-07-2022 Urea nitrogen [Mass/Vol] 17 mg/dL 7-18 [facility] Thin prep Papanicolaou smear with manual screeningOrdered By: Roxanna Lemus on 06-07-2022 Thin prep Papanicolaou smear with manual screening 19 U/L 15-37 [facility] Thin prep Papanicolaou smear with manual screening 5 5-15 [facility] Thin prep Papanicolaou smear with manual screening 21.3 mg/L NO RANGE EST. [facility] Vital Signs Date Time Vital Sign Value Performing Clinician Facility 10-05-2024 14:26-0400 Body temperature 99.39 [degF] David Rocha MD Work Phone: [facility] 10-05-2024 14:26-0400 Body weight 72.2 kg David Rocha MD Work Phone: [facility] 10-05-2024 14:26-0400 Diastolic blood pressure 78 mm[Hg] David Rocha MD Work Phone: [facility] 10-05-2024 14:26-0400 Heart rate 85 /min David Rocha MD Work Phone: [facility] 10-05-2024 14:26-0400 Respiratory rate 18 /min David Rocha MD Work Phone: [facility] 10-05-2024 14:26-0400 SaO2% (BldA) [Mass fraction] 98 % David Rocha MD Work Phone: [facility] 10-05-2024 14:26-0400 Systolic blood pressure 122 mm[Hg] David Rocha MD Work Phone: [facility] 07-25-2022 13:15-0400 Body height 165.1 cm DO Roxanna Lemus Work Phone: [facility] 07-25-2022 13:14-0400 Body mass index (BMI) [Ratio] 26.8 kg/m2 DO Roxanna Allan Work Phone: [facility] 07-25-2022 13:14-0400 Body temperature 97.9 [degF] DO Roxanna Allan Work Phone: [facility] 07-25-2022 13:14-0400 Body weight 73.17 kg DO Roxanna Allan Work Phone: [facility] 07-25-2022 13:14-0400 Diastolic blood pressure 68 mm[Hg] DO Roxanna Allan Work Phone: [facility] 07-25-2022 13:14-0400 Heart rate 96 /min DO Roxanna Allan Work Phone: [facility] 07-25-2022 13:14-0400 Respiratory rate 16 /min DO Roxanna Allan Work Phone: [facility] 07-25-2022 13:14-0400 SaO2% (BldA) [Mass fraction] 96 % DO Roxanna Allan Work Phone: [facility] 07-25-2022 13:14-0400 Systolic blood pressure 112 mm[Hg] DO Roxanna Allan Work Phone: [facility] 07-19-2022 14:30-0400 Body mass index (BMI) [Ratio] 26.6 kg/m2 DO Roxanna Allan Work Phone: [facility] 07-19-2022 14:30-0400 Body temperature 97.1 [degF] DO Roxanna Allan Work Phone: [facility] 07-19-2022 14:30-0400 Body weight 72.77 kg DO Roxanna Allan Work Phone: [facility] 07-19-2022 14:30-0400 Diastolic blood pressure 73 mm[Hg] DO Roxanna Allan Work Phone: [facility] 07-19-2022 14:30-0400 Heart rate 96 /min DO Roxanna Allan Work Phone: [facility] 07-19-2022 14:30-0400 Respiratory rate 16 /min DO Roxanna Lemus Work Phone: [facility] 07-19-2022 14:30-0400 SaO2% (BldA) [Mass fraction] 97 % DO Roxanna Lemus Work Phone: [facility] 07-19-2022 14:30-0400 Systolic blood pressure 118 mm[Hg] DO Roxannafelice Lemus Work Phone: [facility] Encounters Encounter Date Encounter Type Care Provider Facility Start: 10-11-2024 ambulatory Chalon Rosaline [facility] Start: 10-06-2024 End: 10-06-2024 Emergency department patient visit Chalon Rosaline Facility:[facility] Start: 10-05-2024 End: 10-05-2024 ambulatory DAVID ROCHA Facility:[facility] Start: 10-05-2024 End: 10-05-2024 Patient encounter procedure David Rocha MD Work Phone: [facility] Comment on above: Influenza-like illne ss (Primary Dx); Nausea Start: 10-04-2024 ambulatory Chalon Rosaline Facility:[facility] Start: 07-30-2024 End: 07-30-2024 ambulatory Chalon Rosaline Facility:[facility] Start: 06-20-2024 End: 06-20-2024 ambulatory Chalon Rosaline Facility:[facility] Start: 05-31-2024 End: 05-31-2024 ambulatory Chalon Rosaline Facility:[facility] Start: 05-31-2024 End: 05-31-2024 ambulatory Chalon Rosaline Facility:[facility] Start: 05-30-2024 End: 05-30-2024 ambulatory Chalon Rosaline Facility:[facility] Start: 05-17-2024 ambulatory Chalon Rosaline Facility:[facility] Start: 04-22-2024 End: 04-22-2024 ambulatory Chalon Rosaline Facility:[facility] Start: 04-16-2024 ambulatory Willie Friend Facility :[facility] Start: 04-16-2024 End: 04-16-2024 ambulatory Chalon Rosaline Facility:[facility] Start: 02-16-2024 End: 02-16-2024 ambulatory Chalon Rosaline Facility:[facility] Start: 02-16-2024 End: 02-16-2024 ambulatory Chalon Rosaline Facility:[facility] Start: 12-19-2023 ambulatory Chalon Rosaline [facility] Start: 12-19-2023 End: 12-19-2023 ambulatory Chalon Rosaline Facility:[facility] Start: 11-27-2023 End: 11-27-2023 ambulatory Chalon Rosaline Facility:[facility] [place] [facility] Start: 10-27-2023 End: 10-27-2023 ambulatory Balaji Avitia Facility:[facility] Start: 10-26-2023 End: 10-26-2023 ambulatory Chalon Rosaline Facility:[facility] Start: 01-17-2023 End: 01-17-2023 ambulatory [facility] Work Phone: Start: 01-17-2023 End: 01-17-2023 Patient encounter procedure [facility] Work Phone: Start: 09-15-2022 End: 09-15-2022 ambulatory DO Roxanna Lemus Work Phone: [facility] Work Phone: Start: 09-15-2022 End: 09-15-2022 Patient encounter procedure DO Roxanna Lemus Work Phone: [facility] Work Phone: Start: 07-25-2022 End: 07-25-2022 Patient encounter procedure DO Roxanna Lemus Work Phone: [facility] Work Phone: Start: 07-19-2022 Registered Recurring DO Mavis Lemus Work Phone: [facility] Start: 07-19-2022 End: 07-19-2022 Patient encounter procedure DO Roxanna Lemus Work Phone: [facility] Work Phone: Start: 07-14-2022 Non-patient / Non-visit DO Abhijit Lemus Work Phone: [facility] Start: 07-05-2022 End: 07-05-2022 ambulatory [facility] Work Phone: Start: 07-05-2022 End: 07-05-2022 Patient encounter procedure [facility] Start: 06-21-2022 End: 06-21-2022 ambulatory [facility] Work Phone: Start: 06-21-2022 End: 06-21-2022 Patient encounter procedure [facility]-Outpatient [facility] Start: 06-07-2022 End: 06-07-2022 [facility] encounter [facility] Start: 06-29-2021 End: 06-29-2021 Patient encounter procedure [facility] Procedures Date Procedure Procedure Detail Performing Clinician Start: 01-17-2023 Computed tomography of abdomen and pelvis with contrast Start: 06-21-2022 Dual energy X-ray absorptiometry Start: 06-29-2021 Radiography of ankle Plan of Treatment Date Care Activity Detail Author Start: 11-27-2024 Urine microalbumin profile DTaP,Tdap,Td Vaccine (2 - Td or Tdap) [facility] Start: 11-04-2024 Influenza vaccination Influenza Vacc ine (#1) [facility] Start: 03-06-2024 Advance Directive Discussion Advance Directive Discussion [facility] Start: 02-09-2022 Shingrix Vaccine (2 of 2) Salguero grix Vaccine (2 of 2) [facility] Start: 07-28-2003 Screening for osteoporosis Bone Density Screening [facility] Start: 07-28-1983 Diabetes Screening Diabetes Screenin g [facility] Start: 1958 Anxiety Screening Anxiety Screening [facility] Start: 1958 Depression Screening Depression Scre ening [facility] CBC W Auto Different ial panel - Blood [facility] Ferritin [Mass/volum e] in Serum or Plasma [facility] Folate [Mass/volume] in Serum or Plasma [facility] Iron and Iron bindin g capacity panel - Serum or Plasma [facility] Lactate dehydrogenas e measurement [facility] Vitamin B12 measurement [facility] Immunizations Immunization Date Immunization Notes Care Provider Marilia stephenson 11-28-2023 influenza virus vaccine, unspecified formulation David Rocha MD Work Phone: [facility] 05-08-2020 Covid (Moderna) [facility] 04-10-2020 Covid (Moderna) [facility] 11-05-2015 Influenza virus vaccine [facility] Payers Date Payer Category Payer Private Health Insurance [facility] Member Subscriber Plan / Payer (Effective 2024-Present) Name: Alison Santacruz Relation to Subscriber: Self Name: Alison Santacruz Payer ID: [id number] (NAIC) Group ID: Not on file Type: Karyn Address: [facility] [id number] [place] [id number] 2023 Self-pay [id number] 2023 Unknown [id number] 2003 Medicare [id number] Unknown [id number] .462 Unknown [id number] .[id number] .462 Unknown [id number] .[id number] .462 Unknown [id number] [id number] .462 Unknown [id number] 2.16.840.1.695753.3.579.2 .462 Unknown [id number] 2.16.840.1.639470.3.579.2 .462 Unknown [id number] 2.16.840.1.897640.3.579.2 .462 Unknown [id number] 2.16.840.1.114958.3.579.2 .462 Unknown [id number] 2.16.840.1.004666.3.579.2 .462 Unknown [id number] 2.16.840.1.908290.3.579.2 .462 Unknown [id number] 2.16.840.1.468853.3.579.2 .462 Unknown [id number] 2.16.840.1.144585.3.579.2 .462 Unknown [id number] 2.16.840.1.302219.3.579.2 .462 Unknown [id number] 2.16.840.1.140301.3.579.2 .462 Unknown [id number] 2.16.840.1.426052.3.579.2 .462 Unknown [id number] 2.16.840.1.855401.3.579.2 .462 Unknown [id number] 2.16.840.1.614385.3.579.2 .462 Unknown [id number] 2.16.840.1.690702.3.579.2 .462 Unknown [id number] 2.16.840.1.577711.3.579.2 .462 Social History Date Type Detail Facility Start: 07-04-2016 End: 07-19-2022 Tobacco smoking status WAIS Unknown if ever smoked [facility] Start: 1940 Sex Assigned At Female [facility] Start: 1940 Sex assigned at Not on file [facility] Gender identity Not on file [facility] in Progress note 10-05-2024 Note Date & Type Note Facility 10-05-2024 Note HNO ID: [id number] Author: DAVID ROCHA MD Service: ? Author [...] for the following reason(s): Benign exam Procedures [facility] History of Present illness Narrative 10-05-2024 [...] Benign exam Procedures documented in this encounter [facility] Clinical Note 04-16-2024 Note Date & Type Note Facility 04-16-2024 Note [facility] Medical Records Department [address] [place] [address] History Physical Exam 04/16/24 1511 MR#: [id number] Acct: [id number] Name: ALISON SANTACRUZ Rep #: [id number] : 1940 83 From: Willie Friend DO PCP: Dr. Eddie Waggoner MD Status:[facility] Location: AC AC10-1 HPI - General General [...] stop this. She feels weak and fatigued. [facility] Medical History Arthritis Gastric reflux Wears [...] DAILY 07/14/22 12/15/23 Hi story glucosamine 750 ce-[id number]-ovr 1 tab PO DAILY 07/14/22 04/15/24 History [...] Verified 04/16/24 13:29 paroxetine (From Paxil) AdvReac [place] poorly Verified 04/16/24 13:29 rosuvastatin (From Crestor) [...] rectal bleeding, tenes (more content not included)... [facility] Clinical Note 12-19-2023 Note Date & Type Note Facility 12-19-2023 Note [facility] Medical Records Department [address] [place] [address] History Physical Exam 12/19/23 1425 MR#: [id number] Acct: [id number] Name: ALISON SANTACRUZ Rep #: [id number] : 1940 83 From: Willie Friend DO PCP: Dr. Eddie Waggoner MD Status:[facility] Location: [place] [address] History and Physical Date of Admission: 12/19/23 OV 11.27.23 Pt reports that she is here to discuss possible hemorrhoid banding. Pt states that she has a terrible time going to the bathroom and does not want to continues having to take as many laxatives and stool softeners as she is. States that her last colonoscopy was 7-8 years ago. [facility] Medical History Abnormal EKG Varicose veins [...] to the office today for establishment with [facility]. Pt has a PMHx of valvular [...] Appearance: average body habitus and well nourished [facility] Head: normal to inspection Ears: hearing [...] recommended she sta (more content not included)... [facility] Evaluation note Note Date & Type Note Facility Evaluation note No assessment information availa ble [facility] Work Phone: Evaluation note Note Date & Type Note Facility Evaluation note Diagnosis Onset Date Leukopenia resolved Leukopenia resolved [facility] Work Phone: Evaluation note Note Date & Type Note Facility Evaluation note Diagnosis Influenza-like illness- Primary Influenza with other respiratory manifestations Nausea Nausea alone documented in this encounter [facility] Chief Complaint and Reason for Visit Chief Complaint RIGHT ANKLE Chief Complaint OSTEO Chief Complaint OSTEO Amb Documentation NEW PT - LEUKOPENIA lab 1WK REVIEW LABS E ORDER Reason for Visit Leukopenia Leukopenia Chief Complaint RLQ ABD PAIN/ ADD LA BWORK FOR @[facility] Advance Directives No Advanced Directives Records Found Advance Directive Response Recorded Date/ Time Living Will Yes July 20, 2016 1 0:50am Power of Range Manager Yes July 20, 2016 10:50am Advance Directive Response Recorded Date/ Time Living Will Yes July 20, 2016 9 :50am Power of Range Manager Yes July 20, 2016 9:50am Family [...] or prosecute any alcohol or drug abuse patient.[facility] Reason for Visit (unrecogniz ed section and content) Reason Comments Flu Like Symptoms X 3 days-diarrhea, s tomach hurts, nausea, hot and feels dizzy INFORMATION SOURCE (unrecogn ized section and content) DATE CREATED AUTHOR 10/07/2024 [facility] DATE CREATED AUTHOR AUTHOR'S ORGANIZ ATION 10/07/2024 [facility] FOR RECORDS PERTAINING TO PATIENTS WHO [...] BE BASED ON THE PRIMARY CLINICAL RECORDS. [employer] [facility]. provides no warranty or guarantee of the accuracy or completeness of information in this document.
[2024-10-14 16:09] LABS: Giardia Lamblia, Stool EIA Negative (Negative); Pancreatic Elastase, Fecal 258 (>200)
[2024-10-15 08:09] LABS: Calprotectin, Stool 67 ug/g (0-120)
== END | disposition home or self-care (01) ==
LOC: LABSPEC 09:24
PROVIDERS: PCP Family Medicine; Referring Provider Student in an Organized Health Care Education/Training Program; Visit Provider Student in an Organized Health Care Education/Training Program
DX: R19.5 Other fecal abnormalities (principal); K58.9 Irritable bowel syndrome, unspecified; R10.9 Unspecified abdominal pain; R11.0 Nausea
CPT/HCPCS: 82653; 83993; 87177; 87209; 87329; 87493

== ENCOUNTER 2024-10-14 15:36 | Emergency (ER) | payer MEDICARE, OTHER, SELFPAY ==
[2024-10-14 15:37] VITALS: BP 113/98; PULSE 71; RESP 16; TEMP 36.9; O2SAT 97; BMI 25.4
--- NOTE | 2024-10-14 15:55 | EKG12_ITS ---
Test Reason : GENERAL Blood Pressure : */* mmHG Vent. Rate : 62 BPM Atrial Rate : 62 BPM P-R Int : 180 ms QRS Dur : 88 ms QT Int : 410 ms P-R-T Axes : 51 8 23 degrees QTcB Int : 416 ms Sinus rhythm with Premature atrial complexes Otherwise normal ECG Confirmed by Alexis Stovall ([id number]), advertising editor MELITA WILLOUGHBY ([id number]) on 10/15/2024 11:42:39 AM Referred By: Confirmed By: Alexis Stovall
--- NOTE | 2024-10-14 15:55 | EKG12_ITS ---
Test Reason : GENERAL Blood Pressure : */* mmHG Vent. Rate : 62 BPM Atrial Rate : 62 BPM P-R Int : 180 ms QRS Dur : 88 ms QT Int : 410 ms P-R-T Axes : 51 8 23 degrees QTcB Int : 416 ms Sinus rhythm with Premature atrial complexes Otherwise normal ECG Confirmed by Alexis Stovall ([id number]), editor at large MELITA WILLOUGHBY ([id number]) on 10/15/2024 11:42:39 AM Referred By: Confirmed By: Alexis Stovall
--- NOTE | 2024-10-14 15:57 | EX.ED.DYSGE1 ---
HPI History of Present Illness Chief Complaint: General Illness Narrative Narrative: Patient is a 84-year-old female with past medical history IBS, hypothyroidism, thrombocytopenia, hyperlipidemia, anxiety, hypertension who presented to the emergency department with a chief complaint of diarrhea and not feeling well. Patient states that she was here recently and was ultimately sent home. She states that since going home she notes that she has had abdominal pain and diarrhea she states that she tries to eat and immediately goes through her. She states that she has been taking a lot of Pepto-Bismol lately and notes that her stools have been dark but denies any blood. States that she had a stool tested recently for C. difficile and was negative. States that she followed up with Dr. 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 [facility] Medical History Arthritis Gastric reflux Wears hearing aid Loss of hearing Wears glasses Depression Alcohol use Thyroid disease High cholesterol Easy bruising History of IBS Bleeding hemorrhoids Heartburn Non-smoker History of stress test History of echocardiogram Cardiology follow-up encounter Abnormal EKG Varicose veins of both lower extremities Thrombocytopenia Polyp of colon Hyperlipidemia Adjustment disorder Insomnia IBS (irritable bowel syndrome) Panic disorder Generalized anxiety disorder Major depressive disorder, recurrent severe without psychotic features Hypothyroid Hypertension Leukopenia Home Medications ?Medication ?Instructions ?Recorded ?Last Taken ?Type amlodipine 5 mg tablet 5 mg PO DAILY 07/14/22 10/14/24 History levothyroxine 137 mcg tablet 137 mcg PO DAILY 07/14/22 10/14/24 History citalopram 40 mg tablet (Celexa) 40 mg PO DAILY 30 days #30 tabs 03/08/23 10/14/24 Rx trazodone 100 mg tablet 100 mg PO QHS 08/09/23 10/13/24 History pantoprazole 40 mg tablet,delayed 40 mg PO BID #90 tabs 02/16/24 10/14/24 Rx release dicyclomine 10 mg capsule 10 mg PO BID #30 caps 10/07/24 10/14/24 Rx famotidine 40 mg tablet 40 mg PO QDAY #30 tabs 10/11/24 10/14/24 Rx linaclotide 72 mcg capsule 72 mcg PO QAM #60 caps 10/11/24 10/13/24 Rx (Linzess) buspirone 10 mg tablet 10 mg PO TID 10/14/24 10/14/24 History fluticasone propionate 50 1 spray intranasal DAILY PRN 10/14/24 Unknown History mcg/actuation nasal allergy symptoms spray,suspension (24 Hour Allergy Relief) ondansetron 4 mg disintegrating 4 mg PO Q6H PRN nausea and 10/14/24 Unknown Rx tablet vomiting #20 tabs Allergy/AdvReac Type Severity Reaction Status Date / Time Iodinated Contrast Media Allergy Rash Verified 10/14/24 15:37 atorvastatin (From Lipitor) AdvReac Upset Verified 10/14/24 15:37 Stomach bupropion (From Wellbutrin) AdvReac Other Verified 10/14/24 15:37 paroxetine (From Paxil) AdvReac [place] poorly Verified 10/14/24 15:37 rosuvastatin (From Crestor) AdvReac Upset Verified 10/14/24 15:37 Stomach sertraline (From Zoloft) AdvReac Other Verified 10/14/24 15:37 simvastatin (From Zocor) AdvReac Upset Verified 10/14/24 15:37 Stomach Family History Mother Hypertension Father Hypertension Depression CVA (cerebral vascular accident) Bladder cancer Brother Cancer Surgical History Hx of colonoscopy Trigger finger of left thumb History of reverse total replacement of left shoulder joint H/O varicose vein ligation History of tonsillectomy and adenoidectomy History of hysterectomy Social History Smoking Status: Never smoker alcohol intake: current alcohol intake frequency: holidays/special occasions only substance use type: does not use ROS ROS ED ROS Narrative Constitutional: Denies any fevers, chills, headaches Eyes: Denies change in vision double vision blurry vision Cardiovascular: Denies chest pain Respiratory: Denies shortness of breath, coughing Abdomen: Complains of abdominal pain and diarrhea denies nausea or vomiting : Denies any urinary symptoms Neurological: Denies any numbness, weakness, tingling Musculoskeletal: Denies back pain Skin: Denies any rashes or lesions EXAM Physical Exam Narrative Exam Narrative: General: Patient was lying in bed rest comfortably did not appear to be in acute distress Head: Atraumatic, normocephalic Eyes: PERRL bilaterally, EOMI bilaterally, no conjunctival injection noted Neck: Soft, supple, trachea midline Cardiovascular: Regular rate and rhythm no murmurs gallops rubs noted Respiratory: Clear to auscultation bilaterally no rales rhonchi or wheeze noted Abdomen: Soft, nondistended, tenderness to palpation left lower quadrant no rebound or guarding on exam Extremities: +5/5 strength noted in the bilateral upper and lower extremities Neurological: Patient follow commands and that she was at [facility] the year is 2024 Skin: Warm, dry, intact no rashes or lesions noted Const Vital Signs: 10/14/24 15:37 10/14/24 18:23 10/14/24 18:24 Temperature 98.5 F Temperature Source Oral Pulse Rate 71 78 Respiratory Rate 16 18 Respiratory Pattern Normal Blood Pressure 113/98 H Blood Pressure Mean 103 Pulse Ox 97 96 Oxygen Delivery Method Room Air 10/14/24 19:34 Temperature 98.5 F Temperature Source Pulse Rate 78 Respiratory Rate 18 Respiratory Pattern Blood Pressure 113/98 H Blood Pressure Mean 103 Pulse Ox 96 Oxygen Delivery Method MDM MDM MDM Narrative Medical decision making narrative: Patient is a 84-year-old female who presented to the emergency department with a chief complaint of diarrhea, abdominal pain and not keeping things down. On the differential diagnosis includes but not limited to diverticulitis, bowel obstruction, dehydration, electrolyte abnormality. Once the workup is obtained reviewed she will be reevaluated. Patient given IV fluids and Zofran. Patient CBC reviewed showed a white blood count 3.4, hemostable 12, platelet count was 170. Patient odium normal 139, potassium normal at 4, creatinine normal at 0.82. Patient's AST and ALT are 20 and 16 respectively total bilirubin normal at 0.85. Patient lipase normal at 21, urinalysis reviewed and showed no evidence of infection. Patient CT ab pelvis with IV contrast reviewed showed no acute abnormalities noted. Did discuss results with the patient she like to go home at this point time. Patient was given a prescription for home for Zofran ODT as needed. She is encouraged to follow-up with doctors outpatient and return with worsening symptoms or other concerns. She is agreeable to plan as well as family member bedside all question concerns answered she was discharged home in stable condition. Lab Data Labs: Laboratory Results - last 24 hr 10/14/24 10/14/24 16:05 16:58 WBC 3.4 L RBC 3.94 L Hgb 12.0 Hct 35.0 L MCV 88.8 MCH 30.5 MCHC 34.3 RDW Std Deviation 38.3 RDW Coeff of Gema 11.9 Plt Count 170 MPV 8.4 Immature Gran % (Auto) 0.600 Neut % (Auto) 59.7 Lymph % (Auto) 28.4 [place] % (Auto) 8.6 Eos % (Auto) 1.8 Baso % (Auto) 0.9 Absolute Neuts (auto) 2.0 Absolute Lymphs (auto) 0.96 Nucleated RBC % 0 Sodium 139 Potassium 4.0 Chloride 102 Carbon Dioxide 23.2 Anion Gap 14 BUN 10 Creatinine 0.82 Estim Creat Clear Calc 49.95 L Est GFR (MDRD) Non-Af 70 BUN/Creatinine Ratio 12.4 Glucose 88 Calcium 9.3 Total Bilirubin 0.85 AST 20 ALT 16 Alkaline Phosphatase 64 Total Protein 6.9 Albumin 4.5 Globulin 2.4 Albumin/Globulin Ratio 1.9 Lipase 21 Urine Color Straw Urine Clarity Clear Urine pH 7.0 Ur Specific [place] 1.005 Urine Protein Negative Urine Glucose (UA) Normal Urine Ketones Negative Urine Occult Blood Negative Urine Nitrite Negative Urine Bilirubin Negative Urine Urobilinogen Normal Ur Leukocyte Esterase Negative Urine RBC 0-5 SEEN Urine WBC 0-5 SEEN Ur Squamous Epith Cells 0-5 SEEN Urine Bacteria 0 SEEN Urine Mucus 0 SEEN Radiography Diagnostic Testing: Clinical Impression(s) from Imaging Studies Abdomen/Pelvis CT 10/14/24 17:55 IMPRESSION: No acute abnormality of the abdomen or pelvis. Reading Location: [id number] Discharge Plan Triage Chief Complaint: General Illness ED Provider: Vasyl Middleton Dx/Rx/DC Orders Clinical Impression: Diarrhea, Abdominal pain, History of IBS Prescriptions: New ondansetron 4 mg tablet,disintegrating 4 mg PO Q6H PRN (Reason: nausea and vomiting) Qty: 20 0RF No Action levothyroxine 137 mcg tablet 137 mcg PO DAILY Patient Comments: Take 1 tablet by mouthtdailyo amlodipine 5 mg tablet 5 mg PO DAILY Patient Comments: TAKE 1 TABLET BY MOUTHHONCE DAILY trazodone 100 mg tablet 100 mg PO QHS pantoprazole 40 mg tablet,delayed release (DR/EC) 40 mg PO BID Qty: 90 3RF famotidine 40 mg tablet 40 mg PO QDAY Qty: 30 0RF Linzess 72 mcg capsule 72 mcg PO QAM Qty: 60 2RF citalopram [Celexa] 40 mg tablet 40 mg PO DAILY 30 Days Qty: 30 1RF fluticasone propionate [24 Hour Allergy Relief] 50 mcg/actuation spray,suspension 1 spray intranasal DAILY PRN (Reason: allergy symptoms) Rx Instructions: administer into each nostril buspirone 10 mg tablet 10 mg PO TID dicyclomine 10 mg capsule 10 mg PO BID Qty: 30 2RF Primary Care Provider: Eddie Waggoner Referrals: Eddie Waggoner MD [Primary Care Provider] - Activity Restrictions/Additional Instructions: Follow-up your doctors outpatient timing. Return with worsening symptoms or any other concerns. Your blood work did not show any acute findings and your CT scan of your abdomen and pelvis did not show acute findings either. Print Language: German Disposition Disposition: Home, Self Care
[2024-10-14 16:16] LABS: Hematocrit 35.0 % (37-47); Hemoglobin 12.0 g/dL (12.0-15.0); Immature Granulocytes Count 0.020 X10^3/uL (0.0-0.0); Mean Corp Hgb Conc 34.3 g/dL (32-36); Mean Corpuscular Volume 88.8 fL (81-99); Mean Platelet Vol. 8.4 fl (6.2-12.0); NRBC Flagged by Analyzer 0 % (0-5); Platelet Count 170 K/mm3 (150-450); RBC Distribution Width CV 11.9 % (11.6-14.6); RBC Distribution Width SD 38.3 fl (35.1-43.9); Red Blood Count 3.94 M/mm3 (4.2-5.4); White Blood Count 3.4 K/mm3 (4.4-11.0)
[2024-10-14] MEDS: DiphenhydrAMINE 50 MG/ML Syringe 25 MG IV (16:30)
[2024-10-14] MEDS: 0.9% Normal Saline (1000mL) 1,000 ML 999 ML IV (16:30)
[2024-10-14 17:09] LABS: Mucous, Urine 0 SEEN /hpf (<or=2+)
[2024-10-14 17:17] LABS: AST(SGOT) 20 U/L (<=31); Alanine Aminotransfer ALT/SGPT 16 U/L (<=34); Albumin, Serum 4.5 g/dL (3.4-4.8); Alkaline Phosphatase 64 U/L (35-104); Anion Gap 14 (5-15); BUN 10 mg/dL (4-19); BUN/Creat Ratio 12.4 RATIO (10-20); Calcium,Total 9.3 mg/dL (7.6-11.0); Carbon Dioxide 23.2 mmol/L (21.0-32.0); Chloride 102 mmol/L (98-108); Estimated Creatinine Clearance 49.95 ml/min (50-250); Globulin 2.4 g/dL (2.2-4.2); Glucose 88 mg/dL (70-99); Lipase 21 U/L (13-75); Potassium 4.0 mmol/L (3.3-5.1)
--- NOTE | 2024-10-14 17:55 | CT_ITS ---
PROCEDURE: ABDOMEN/PELVIS W IV CONT ONLY 10/14/2024 REASON FOR EXAM: LLQ PAIN TECHNIQUE: ABDOMEN/PELVIS W IV CONT ONLY Coronal and Sagittal reconstruction series were provided. CONTRAST: Isovue 300 VOLUME: 97 mL One or more dose reduction techniques were used (e.g., Automated exposure control, adjustment of the mA and/or kV according to patient size, use of iterative reconstruction technique. RADIATION DOSE SUMMARY: CTDlvol: 9+ 16 mGy DLP: 760 mGycm COMPARISON: 10/06/2024. FINDINGS: The peripheral soft tissues are unremarkable. The lung bases are clear. Degenerative changes of the spine. Degenerative changes of the sacroiliac joints. Moderate atherosclerosis. No suspicious lymphadenopathy. The liver, gallbladder, pancreas, spleen, adrenals are unremarkable. Symmetric enhancement of the bilateral kidneys. No significant hydroureteronephrosis. The urinary bladder is unremarkable. Normal caliber large and small bowel. CT/Abdomen/Pelvis W IV Cont ONLY IMPRESSION: No acute abnormality of the abdomen or pelvis. Reading Location: [id number]
--- NOTE | 2024-10-14 17:55 | CT_ITS ---
PROCEDURE: ABDOMEN/PELVIS W IV CONT ONLY 10/14/2024 REASON FOR EXAM: LLQ PAIN TECHNIQUE: ABDOMEN/PELVIS W IV CONT ONLY Coronal and Sagittal reconstruction series were provided. CONTRAST: Isovue 300 VOLUME: 97 mL One or more dose reduction techniques were used (e.g., Automated exposure control, adjustment of the mA and/or kV according to patient size, use of iterative reconstruction technique. RADIATION DOSE SUMMARY: CTDlvol: 9+ 16 mGy DLP: 760 mGycm COMPARISON: 10/06/2024. FINDINGS: The peripheral soft tissues are unremarkable. The lung bases are clear. Degenerative changes of the spine. Degenerative changes of the sacroiliac joints. Moderate atherosclerosis. No suspicious lymphadenopathy. The liver, gallbladder, pancreas, spleen, adrenals are unremarkable. Symmetric enhancement of the bilateral kidneys. No significant hydroureteronephrosis. The urinary bladder is unremarkable. Normal caliber large and small bowel. CT/Abdomen/Pelvis W IV Cont ONLY IMPRESSION: No acute abnormality of the abdomen or pelvis. Reading Location: [id number]
[2024-10-14 18:01] LABS: Color, Urine Straw (Yellow); Glucose, Dipstick Normal (Normal); Ketone-Dipstick Negative (Negative); Leukocyte Esterase-Dipstick Negative /ul (Negative); Nitrite-Dipstick Negative (Negative); Occult Blood-Urine Negative /ul (Negative); Protein-Dipstick Negative (Negative); Specific Gravity, Urine 1.005 (1.002-1.030); Urine Bilirubin Dipstick Negative (Negative)
--- NOTE | 2024-10-14 18:21 | ED.RN ---
Patient concerned for Carbon monoxide poisoning due to alarms at [facility] for CO2. patient states she would like Dr. Middleton to be aware of this concern since the fire department is there. Dr. Middleton aware of patients request. CO2 monitior reports 2. Dr. Middleton notified. No new orders
--- NOTE | 2024-10-14 18:21 | ED.RN ---
Patient concerned for Carbon monoxide poisoning due to alarms at [facility] for CO2. patient states she would like Dr. Middleton to be aware of this concern since the fire department is there. Dr. Middleton aware of patients request. CO2 monitior reports 2. Dr. Middleton notified. No new orders
[2024-10-14 18:23] VITALS: PULSE 78; RESP 18; O2SAT 96
[2024-10-14 18:33] LABS: Red Blood Cells-Urine 0-5 SEEN /hpf (0-5); Squamous Epithelial Cells - UA 0-5 SEEN /hpf (5-10)
[2024-10-14 19:34] VITALS: BP 113/98; PULSE 78; RESP 18; TEMP 36.9; O2SAT 96
== END 2024-10-14 19:55 | disposition home or self-care (01) ==
PROVIDERS: Emergency Provider Emergency Medicine; PCP Family Medicine; Visit Provider Emergency Medicine
DX: R19.7 Diarrhea, unspecified (principal); R10.9 Unspecified abdominal pain; I10 Essential (primary) hypertension; F41.9 Anxiety disorder, unspecified; E78.00 Pure hypercholesterolemia, unspecified; Z79.899 Other long term (current) drug therapy
CPT/HCPCS: 74177; 80053; 81001; 83690; 85025; 87631; 87651; 93005; 96361; 96374; 96375; 99283; Q9967; A4216; J2405

== ENCOUNTER → 2024-10-16 | Outpatient (CLI) | payer MEDICARE, OTHER, SELFPAY ==
--- NOTE | 2024-10-16 16:20 | RAD_ITS ---
PROCEDURE: ABD INC DECUB AND/OR ERECT 10/16/2024 REASON FOR EXAM: FECAL IMPACTION TECHNIQUE: ABD INC DECUB AND/OR ERECT COMPARISON: CT Abdomen and Pelvis w/Contrast, 10/14/2024 FINDINGS: LUNG BASES: No focal airspace consolidation. Calcified right lower lobe granuloma. BOWEL: The bowel gas pattern is unremarkable. No bowel obstruction. PERITONEUM/SOFT TISSUES: No appreciable free air. No abnormal calcifications. BONES: No acute osseous abnormality. RAD/Abd Inc Decub and/or Erect IMPRESSION: No acute abnormalities. Degenerative changes of the spine. Mild moderate lumb ar levoscoliosis. IMPRESSION: No acute findings. Reading Location: [id number]
[2024-10-16 17:18] LABS: Hematocrit 36.4 % (37-47); Hemoglobin 12.6 g/dL (12.0-15.0); Immature Granulocytes Count 0.020 X10^3/uL (0.0-0.0); Mean Corp Hgb Conc 34.6 g/dL (32-36); Mean Corpuscular Volume 89.2 fL (81-99); Mean Platelet Vol. 8.4 fl (6.2-12.0); NRBC Flagged by Analyzer 0 % (0-5); Platelet Count 205 K/mm3 (150-450); RBC Distribution Width CV 12.0 % (11.6-14.6); RBC Distribution Width SD 39.3 fl (35.1-43.9); Red Blood Count 4.08 M/mm3 (4.2-5.4); White Blood Count 6.4 K/mm3 (4.4-11.0)
[2024-10-16 17:56] LABS: AST(SGOT) 19 U/L (<=31); Alanine Aminotransfer ALT/SGPT 18 U/L (<=34); Albumin, Serum 4.7 g/dL (3.4-4.8); Alkaline Phosphatase 64 U/L (35-104); Anion Gap 14 (5-15); BUN 13 mg/dL (4-19); BUN/Creat Ratio 15.0 RATIO (10-20); Calcium,Total 9.4 mg/dL (7.6-11.0); Carbon Dioxide 25.9 mmol/L (21.0-32.0); Chloride 101 mmol/L (98-108); Cholesterol 249 mg/dL (<=200); Globulin 2.5 g/dL (2.2-4.2); Glucose 93 mg/dL (70-99); Hepatitis C Antibody Nonreactive (Nonreactive); Low Density Lipoprotein Calc. 146 mg/dL; Potassium 3.7 mmol/L (3.3-5.1); Triglycerides 111 mg/dL; Very Low Density Lipoprotein 22 mg/dL (5-40); cholesterol:hdl ratio screen 3.08
[2024-10-16 17:59] LABS: Vitamin D,25 Hydroxy 41.9 ng/mL (30-100)
== END | disposition home or self-care (01) ==
LOC: LABSPEC 14:00 → RAD 16:09
PROVIDERS: Student in an Organized Health Care Education/Training Program; PCP Family Medicine Geriatric Medicine; Referring Provider Family Medicine Geriatric Medicine; Visit Provider Family Medicine Geriatric Medicine
DX: K56.41 Fecal impaction (principal); E03.9 Hypothyroidism, unspecified; Z13.89 Encounter for screening for other disorder; E55.9 Vitamin D deficiency, unspecified
CPT/HCPCS: 36415; 74019; 80053; 80061; 82306; 84443; 85025; 86803

== ENCOUNTER → 2024-10-23 | Outpatient (CLI) | payer MEDICARE, OTHER, SELFPAY ==
--- NOTE | 2024-10-23 11:45 | RAD_ITS ---
PROCEDURE: L/S SPINE MIN 4 VIEWS 10/23/2024 REASON FOR EXAM: LOW BACK PAIN, UNSPECIFIED TECHNIQUE: Lumbar spine four views COMPARISON: None FINDINGS: There is levoscoliosis of the lumbar spine with Kumar angle = 25 degrees from L1- 4, apex L3. Vertebral body height is grossly maintained. There is loss of disc height at each level. There is severe facet sclerosis. Osteopenia is noted. Vascular calcifications are visible. RAD/L/S Spine Min 4 Views IMPRESSION: There is levoscoliosis of the lumbar spine with Kumar angle = 25 degrees from L1 -4, apex L3. There is loss of disc height at each level. Reading Location: [id number]
== END | disposition home or self-care (01) ==
PROVIDERS: PCP Family Medicine Geriatric Medicine; Referring Provider Family Medicine Geriatric Medicine; Visit Provider Family Medicine Geriatric Medicine
DX: M54.50 Low back pain, unspecified (principal)
CPT/HCPCS: 72110

== ENCOUNTER 2024-10-29 11:27 | Outpatient (RCR) | payer MEDICARE, OTHER, SELFPAY ==
--- NOTE | 2024-10-29 12:14 | HP.PTEVAL ---
Patient's Visit Information Visit Information Visit Information: ALISON HILTON is a 84 year old F referred to Physical Therapy by Dr. Rudi Tolentino MD with a diagnosis of LBP. Date of Evaluation: 10/29/24 Physical Therapist: Brice Walter, DPT, OCS, CSCS Visit Plan Frequency: 1-2x /Week Duration: 4-6 Weeks Plan: 1-2x/week for up to 4-6 weeks if neeeded. IE HEP trunk rotation, PPT 20x and skc 10x 3x/day, supine quad stretch 30 4x daily and GET back in pool and start moving. F/U in two weeks to consider if she needs more pool instruct, progress to core strength on land or more frequent visits, start every other week. Subjective Subjective: Needs education on LB. needs trazadone to sleep. Waking up LB kills her. This has happened for several months and not sure why. Most pain is in am. Used to work out in pool until she got sick. No longer doing that. Lives at [facility] for assisted living. now n allergies. back aches during day but not avoiding anything, just hard to move in the am. Basic ADL all i. Hobbies; tj, swimming, Exercises: no Employed: no Pain LBP: Pain Intensity (Out of 10): 0 Pain Intensity Range: 0 and 5 Comment: tylenol helps, achy all the time. Objective Objective: Walks into PT without pain today adn normal adn I gait. trasers chair andd bed I. Good balance. Heel adn toe walk I. Lumbar AROM ext painful centrally and mod limited, flexion adn SB are good and painfree. quad tightness apparent into psoas B. - SLR, - slump hip and knee adn ankle aROM WFL reflexes 2/3 patella and achilles B. sensation LE WNL to gross light touch B. strength hips and core 3/5 without pain, knees and ankles 4/5 , no myotomal problems noted. Unsteady in core with seated hip testing. Balance/Special Test Scores Oswestry Low Back Score: 12 Goals Goal 1:: I appropriate home pool adn home based core strength adn ROm in NS to manage condition Goal Time Frame: 4-6 Weeks Goal 2:: Pain in am 1/10 at worst adn 75% better Goal Time Frame: 4-6 Weeks Goal 3:: Oswestry score 6 or better Goal Time Frame: 4-6 Weeks Rehabilitation Potential Physical Therapy Diagnosis: degenrative changes casuing pain and difficulty with am fucntion Rehabilitation Potential: Fair Anticipated Interventions Patient/Client Instruction: Educate patient on: Condition and Plan of Care For the Purpose of:: To decrease pain, To increase ROM, To improve muscle performance and motor function, To increase tolerance to activity/condition/position and To improve ability of physical actions for home/community/work/leisure Therapeutic Exercise to Include: Strength training, Flexibilty training, In an aquatic setting, Passive ROM, Active ROM and Dynamic Lumbar Stabilization For the Purpose of:: To decrease pain, To increase ROM, To improve nutrient delivery to tissue, To improve muscle performance and motor function, To increase tolerance to activity/condition/position and To improve ability of physical actions for home/community/work/leisure Text: Thank you for the opportunity to evaluate your patient. For Medicare and Medicare HMO plans, please review the plan of care and approve it. It will need to be FAXED BACK to us at [phone] for Medicare purposes. For Medicare only, by signing this I certify the plan of care. Please let me know if there are questions or concerns regarding this plan of care. Physician Signature: Date:
--- NOTE | 2024-11-05 10:54 | HP.PT.NRP ---
Patient Information Patient Information: ALISON HILTON was seen in my office for initial evaluation on 10/29/24. The following Plan of Care was established for this patient: POC Established Initial Frequency: 1-2x /Week Initial Duration: 4-6 Weeks Anticipated Interventions Patient/Client Instruction: Educate patient on: Condition and Plan of Care For the Purpose of:: To decrease pain, To increase ROM, To improve muscle performance and motor function, To increase tolerance to activity/condition/position and To improve ability of physical actions for home/community/work/leisure Therapeutic Exercise to Include: Strength training, Flexibilty training, In an aquatic setting, Passive ROM, Active ROM and Dynamic Lumbar Stabilization For the Purpose of:: To decrease pain, To increase ROM, To improve nutrient delivery to tissue, To improve muscle performance and motor function, To increase tolerance to activity/condition/position and To improve ability of physical actions for home/community/work/leisure Last Seen Last Seen: This patient was last seen in our office 10/29/24. Pertinent comments regarding their Physical therapy will appear below: Pt seen for IE and educate don benefits of getting back in the pool and given home stretches. She has called to cancel future appointments stating that she is doing really good I will discontinue her from my care at this time. At this point I will be discontinuing this patient from physical therapy. I would be happy to see this patient again in the future if found appropriate by the physician. Thank you! Brice Walter, DPT, OCS, CSCS Balance/Gait/Functional tests Balance/Special Test Scores Oswestry Low Back Score: 12
== END 2024-10-29 19:00 | disposition home or self-care (01) ==
LOC: PT 11:27
PROVIDERS: PCP Family Medicine Geriatric Medicine; Referring Provider Family Medicine Geriatric Medicine; Visit Provider Family Medicine Geriatric Medicine
DX: M54.50 Low back pain, unspecified (principal)
CPT/HCPCS: 97110; 97161

== ENCOUNTER → 2024-11-28 | Outpatient (CLI) | payer MEDICARE, OTHER, SELFPAY ==
[2024-11-28 15:48] LABS: Hematocrit 35.0 % (37-47); Hemoglobin 12.3 g/dL (12.0-15.0); Immature Granulocytes Count 0.030 X10^3/uL (0.0-0.0); Mean Corp Hgb Conc 35.1 g/dL (32-36); Mean Corpuscular Volume 87.9 fL (81-99); Mean Platelet Vol. 8.2 fl (6.2-12.0); NRBC Flagged by Analyzer 0 % (0-5); Platelet Count 189 K/mm3 (150-450); RBC Distribution Width CV 11.9 % (11.6-14.6); RBC Distribution Width SD 38.0 fl (35.1-43.9); Red Blood Count 3.98 M/mm3 (4.2-5.4); White Blood Count 5.5 K/mm3 (4.4-11.0)
[2024-11-28 16:32] LABS: AST(SGOT) 22 U/L (<=31); Alanine Aminotransfer ALT/SGPT 17 U/L (<=34); Albumin, Serum 4.4 g/dL (3.4-4.8); Alkaline Phosphatase 73 U/L (35-104); Anion Gap 10 (5-15); BUN 15 mg/dL (4-19); BUN/Creat Ratio 18.9 RATIO (10-20); Calcium,Total 9.0 mg/dL (7.6-11.0); Carbon Dioxide 26.7 mmol/L (21.0-32.0); Chloride 103 mmol/L (98-108); Globulin 2.2 g/dL (2.2-4.2); Glucose 117 mg/dL (70-99); Potassium 3.8 mmol/L (3.3-5.1)
== END | disposition home or self-care (01) ==
LOC: POLAB3 15:36
PROVIDERS: PCP Family Medicine Geriatric Medicine; Visit Provider Family Medicine Geriatric Medicine
DX: I10 Essential (primary) hypertension (principal); J98.8 Other specified respiratory disorders
CPT/HCPCS: 36415; 80053; 85025; 87631

== ENCOUNTER → 2024-11-29 | Outpatient (CLI) | payer MEDICARE, OTHER, SELFPAY | END | disposition home or self-care (01) | LOC: LABSPEC 09:33 | PROVIDERS: PCP Family Medicine Geriatric Medicine; Referring Provider Family Medicine Geriatric Medicine; Visit Provider Family Medicine Geriatric Medicine | DX: R10.9 Unspecified abdominal pain (principal) | CPT/HCPCS: 82274 ==

== ENCOUNTER → 2025-01-08 | Outpatient (CLI) | payer MEDICARE, OTHER, SELFPAY ==
--- NOTE | 2025-01-08 16:35 | CT_ITS ---
PROCEDURE: CT BRAIN/HEAD WITHOUT CONTRAST 01/08/2025 REASON FOR EXAM: DIZZINESS/ATAXIA TECHNIQUE: Procedure Code: CTBR Modality: CT Procedure: BRAIN/HEAD WITHOUT CONTRAST Coronal and Sagittal reconstruction series were provided. One or more dose reduction techniques were used (e.g., Automated exposure control, adjustment of the mA and/or kV according to patient size, use of iterative reconstruction technique. RADIATION DOSE SUMMARY: CTDlvol: 44.99 mGy DLP: 846.73 mGycm COMPARISON: Maxillofacial CT 10/27/2023. FINDINGS: No acute intracranial hemorrhage, extra-axial collection, mass effect or evidence of acute infarct. Mild generalized brain parenchymal volume loss and chronic microangiopathic changes, subjectively age-appropriate. Atherosclerotic vascular calcifications and nonspecific age-related mineralization in the bilateral basal ganglia. Absent igiugig ocular lenses. Intact skull base and calvarium. Well-aerated paranasal sinuses and mastoid air cells. CT/Brain/Head without Contrast IMPRESSION: No acute intracranial abnormality. Reading Location: [id number]
--- OUTSIDE RECORDS SUMMARY | 2025-01-08 18:12 | XMS RPT_ITS | CCD ---
Author Organization [facility] Care Team Providers Care Frame Polisher Name Role Phone DO Roxanna Lemus Primary Care Provider Radha Ascencio Attending Provider UnavailDO Roxanna Holguin Referring Provider Dr. Vernon Garrett Attending Provider Unavailable Primary Care Provider UnavailDAVID Griffin Attending Unavailable Rosaline, Chalon Primary Care Unavailable Rosaline, Chalon Referring Unavailable Rajwinder Luis Attending Unavailable Rosaline, Chalon Primary Care Unavailable Atanasov, Rajwinder Referring Unavailable AtanasovRajwinder Attending Unavailable Rosaline, Chalon Primary Care Unavailable Atanasov, Rajwinder Attending Unavailable Atanasov, Rajwinder Referring Unavailable Rosaline, Chalon Primary Care Unavailable Rosaline, Chalon Referring Unavailable Rosaline, Chalon Attending Unavailable Rosaline, Chalon Primary Care Unavailable Atanasov, Rajwinder Attending Unavailable Atanasov, Rajwinder Referring Unavailable Rosaline, Chalon Primary Care Unavailable Atanasov, Rajwinder Attending Unavailable MaryjaneovRajwinder Referring Unavailable Chris Phillips Attending Unavailabl e Rosaline, Chalon Primary Care Unavailable Rosaline, Chalon Primary Care Unavailable Vasyl Middleton Attending Unavailable Rosaline, Chalon Primary Care Unavailable Rosaline, Chalon Referring Unavailable Rosaline, Chalon Attending Unavailable Rajan, Rudi Chi Attending Unavailable Rajan, Rudi Chi Primary Care Unavailable Rajan, Rudi Chi Referring Unavailable Rajan, Rudi Chi Attending Unavailable Rajan, Rudi Chi Primary Care Unavailable Rajan, Rudi Chi Referring Unavailable Rajan, Rudi Chi Attending Unavailable Raajn, Rudi Chi Primary Care Unavailable Rajan, Rudi Chi Referring Unavailable Rosaline, Chalon Primary Care Unavailable Rosaline, Chalon Referring Unavailable Willie Shook Attending Unavailable Rosaline, Chalon Primary Care Unavailable Rosaline, Chalon Referring Unavailable Rosaline, Chalon Attending Unavailable Rajan, Rudi Chi Attending Unavailable Rajan, Rudi Chi Primary Care Unavailable Rajan, Rudi Chi Referring Unavailable Rajan, Rudi Chi Attending Unavailable Rajan, Rudi Chi Primary Care Unavailable Rajan, Rudi Chi Primary Care Unavailable Rajan, Rudi Chi Referring Unavailable Rajan, Rudi Chi Attending Unavailable Rajwinder Luis Consulting Unavailable Rosaline, Chalon Primary Care Unavailable Rajwinder Luis Referring Unavailable Rajwinder Luis Attending Unavailable Rajan, Rudi Chi Primary Care Unavailable Rajan, Rudi Chi Referring Unavailable Marii Perales NP Attending Unavailable Rosaline, Chalon Primary Care Unavailable Rosaline, Chalon Referring Unavailable AtanasovRajwinder Attending Unavailable Rosaline, Chalon Primary Care Unavailable Rosaline, Chalon Referring Unavailable Rajwinder Luis Attending Unavailable Rosaline, Chalon Primary Care Unavailable Rosaline, Chalon Referring Unavailable AtanasovRajwinder Attending Unavailable Rosaline, Chalon Primary Care Unavailable Rosaline, Chalon Referring Unavailable Friend, Willie Attending Unavailable Friend, Willie Consulting Unavailable Rosaline, Chalon Primary Care Unavailable Rosaline, Chalon Referring Unavailable Diaz SERRANO, Marii Attending Unavailable Allergies Allergy Classification Reported Allergen(s) Allergy Type Date of Onset Reaction(s) Facility (3 sources) Triiodobenzoic Acids Allergy to substance 06-30-19 Rash [facility] (2 sources) atorvastatin Drug Allergy 07-26-19 Upset Stomach [facility] (2 sources) PARoxetine Drug Allergy 07-26-19 Bahama poorly [facility] (2 sources) rosuvastatin Drug Allergy 07-26-19 Upset Stomach [facility] (2 sources) Simvastatin Drug Allergy 07-26-19 Upset Stomach [facility] (2 sources) HMG-CoA reductase inhibitor; Translations: [MQIEJAL-KOU-NDR REDUCTASE INHIBITORS] Drug Intolerance 10-06-19 Intolerance [facility] (1 source) atorvastatin Drug Allergy 10-26-19 [facility] (1 source) buPROPion Drug Allergy 10-26-19 [facility] (1 source) PARoxetine Drug Allergy 10-26-19 [facility] (1 source) rosuvastatin Drug Allergy 10-26-19 [facility] (1 source) Sertraline Drug Allergy 10-26-19 [facility] (1 source) Simvastatin Drug Allergy 10-26-19 [facility] (1 source) Iodinated Contrast Media Drug allergy (disorder) 10-26-19 [facility] Medications Current Medications Medication Drug Class(es) [...] MG PO DAILY July 13, 2022 11:00pm Urjpsgkp-Nreb-Atn3-C- Liset-Bosw (Osteo Bi-Flex Triple Strength) 1 EACH tablet (5 sources) Start: 07-04-2016 take 1 tablet by mouth once daily Grllppaa-Zdnt-Pvl8-C- Liset-Bosw (Osteo Bi-Flex Triple Strength) 1 EACH tablet Active 2 EACH PO DAILY July 04, 2016 10:20am Start: 07-04-2016 End: 07-14-2022 take 1 tablet by mouth once daily Ezyqyqsz-Vjkz-Mjo5-C-Liset-Bosw (Osteo Bi -Flex Triple Strength) 1 EACH tablet Discontinued 2 EACH PO DAILY July 03, 2016 11:00pm July 14, 2022 7:42am Start: 07-04-2016 End: 07-14-2022 take 1 tablet by mouth once daily Pvvycrdv-Ljpj-Ufe2-C-Liset-Bosw (Osteo Bi -Flex Triple Strength) 1 EACH tablet Discontinued 2 EACH PO DAILY July 04, 2016 12:00am July 14, 2022 8:42am Start: 07-04-2016 take 1 tablet by edna th once daily Mtnqseri-Uqen-Rfv4-C-Liset-Bosw (Osteo Bi -Flex Triple Strength) 1 EACH tablet Active 2 EACH PO DAILY July 04, 2016 12:00am Gsgopucq-Heov-Kzv2-C-Liset-Osmany sw (Osteo Bi-Flex Triple Strength) 750 mg-644 mg- 30 mg-1 mg tablet (2 sources) Start: 07-14-2022 take 1 tablet by mouth once daily Vmzpztmr-Aakr-Ily8-C-Liset-Bosw (Osteo Bi-Flex Triple Strength) 750 mg-644 mg- 30 mg-1 mg tablet Active 1 TABLET PO DAILY July 14, 2022 7:40am Start: 07-14-2022 take 1 tablet by edna th once daily Uqwjjhsx-Cwko-Ygv2-C-Liset-Bosw (Osteo Bi -Flex Triple Strength) 750 mg-644 [...] 11:00pm Start: 07-14-2022 [facility] Multivitamin Active 1 TABLET PO DAILY July 14, 2022 12:00am [place] 9-Wbh-Msa-Fish Oil (Fish Oil) 60-90-500 mg capsule (2 sources) Start: 07-14-2022 take 1 capsule by mouth once daily [place] 9-Kwq-Hro-Fish Oil (Fish Oil) 60-90-500 mg capsule Active 1 CAP PO DAILY July 13, 2022 11:00pm Start: 07-14-2022 take 1 capsule by mo [facility] once daily [place] 3-Xog-Bcp-Fish Oil (Fish Oil) 60-90-500 mg capsule Active [...] daily Aspirin Discontinued 81 MG PO DAILY@0800 14 July 20, 2016 11:00pm July 14, 2022 7:41am atorvastatin 20 mg oral tablet (5 sources) HMG-CoA Reductase Inhibitor Start: 07-04-2016 End: 07-14-2022 take 20 mg by mouth at bedtime Atorvastatin Discontinued 20 MG PO AT BEDTIME July 03, 2016 11:00pm July 14, 2022 7:42am docusate sodium 50 mg / sennosides, retirement 8.6 mg oral tablet (10 sources) Start: [...] Date Documented Da te Episodic/Chronic Abdominal pain (4 sources) Unspecified abdominal pain; Translations: [Epigastric pain] Onset: 05-01-2024 Episodic Diseases of white blood cells (4 sources) Leukopenia; Translations: [Decreased white blood cell count, unspecified] 07-25-2022 Chronic Essential hypertension (1 source) Essential (primary) hypertension; Translations: [Essential (primary) hypertension] Onset: 12-27-2024 Chronic Influenza (2 sources) Influenza-like illness; Translations: [Influenza due to unidentified influenza virus with other respiratory manifestations] Onset: 10-05-2024 10-05-2024 Episodic Intestinal obstruction without hernia (1 source) Fecal impaction; Translations: [Fecal impaction] Onset: 11-25-2024 Episodic Nausea and vomiting (4 sources) Nausea; Translations: [Nausea] Onset: 10-05-2024 10-05-2024 Episodic Other gastrointestinal disorders (1 source) Other irritable bowel syndrome; Translations: [Other irritable bowel syndrome] Onset: 12-01-2024 Chronic Other gastrointestinal disorders (1 source) Diarrhea, unspecified; Translations: [Diarrhea, unspecified] Onset: 10-18-2024 Episodic Other gastrointestinal disorders (1 source) Other fecal abnormalities; Translations: [Other fecal abnormalities] Onset: 10-18-2024 Episodic Thyroid disorders (1 source) Hypothyroidism, unspecified; Translations: [Hypothyroidism, unspecified] Onset: 06-11-2024 Chronic Unclassified (1 source) Low back pain, unspecified; Translations: [Low back pain, unspecified] Onset: 10-30-2024 Past or Other Problems Problem Classification Problem Date Documented Da te Episodic/Chronic Gastrointestinal hemorrhage (2 sources) Melena; Translations: [Melena] Onset: 03-21-2024 Episodic Other gastrointestinal disorders (1 source) Constipation, unspecified; Translations: [Constipation, unspecified] Onset: 06-04-2024 Episodic Other non-traumatic joint disorders (1 source) Pain in right shoulder; Translations: [Pain in right shoulder] Onset: 08-06-2024 Episodic Results Test Name Value Interpretation Reference Range Facility Stool Occult Blood iFOBon STOB Negative Normal [facility] Comment on above: Performed By: #### L 100.0100, L501.2450, L500.4050 #### [facility] [address] [place], [address] CBC W/Diff, Automatedon 11-05 Absolute Lymph 1.58 X10 3/uL Normal 0.83-4.51 [facility] Comment on above: Performed By: #### L 3410.9992 #### [facility] [address] [place], [address] Absolute Neut 3.2 X10 3/uL Normal 2.0-7.7 [facility] Comment on above: Performed By: #### L 3410.9992 #### [facility] [address] [place], [address] Basophils/100 WBC (Bld) 0.9 % Normal 0-1 [facility] Comment on above: Performed By: #### L 3410.9992 #### [facility] [address] [place], [address] Eosinophils/100 WBC (Bld) 3.7 % Normal 0-5 [facility] Comment on above: Performed By: #### L 3410.9992 #### [facility] [address] [place], [address] Erythrocyte distribution width (RBC) [Ratio] 11.9 % Normal 11.6-14.6 [facility] Comment on above: Performed By: #### L 3410.9992 #### [facility] [address] [place], [address] Hematocrit (Bld) [Volume fraction] 35.0 % Low 37-47 [facility] Comment on above: Performed By: #### L 3410.9992 #### [facility] [address] [place], [address] Hemoglobin (Bld) [Mass/Vol] 12.3 g/dL Normal 12.0-15.0 [facility] Comment on above: Performed By: #### L 3410.9992 #### [facility] [address] [place], [address] IG% 0.500 Normal 0.0-0.9 [facility] Comment on above: Result Comment: IG% - Immature Granulocytes (promyelocytes, myelocytes and metamyelocytes) > 1% indicates that a LEFT SHIFT is Present. Performed By: #### L 3410.9992 #### [facility] [address] [place], [address] Lymphocytes/100 WBC (Bld) 28.9 % Normal 19-41 [facility] Comment on above: Performed By: #### L 3410.9992 #### [facility] [address] [place], [address] MCH (RBC) [Entitic mass] 30.9 pg Normal 27.0-32.0 [facility] Comment on above: Performed By: #### L 3410.9992 #### [facility] [address] [place], [address] MCHC (RBC) [Mass/Vol] 35.1 g/dL Normal 32-36 [facility] Comment on above: Performed By: #### L 3410.9992 #### [facility] [address] [place], [address] MCV (RBC) [Entitic vol] 87.9 fL Normal 81-99 [facility] Comment on above: Performed By: #### L 3410.9992 #### [facility] [address] [place], [address] Monocytes/100 WBC (Bld) 6.8 % Normal 0-10 [facility] Comment on above: Performed By: #### L 3410.9992 #### [facility] [address] [place], [address] Neutrophils/100 WBC (Bld) 59.2 % Normal 47-70 [facility] Comment on above: Performed By: #### L 3410.9992 #### [facility] [address] [place], [address] Nucleated RBC (Bld) [#/Vol] 0 10*3/uL Normal 0-5 [facility] Comment on above: Performed By: #### L 3410.9992 #### [facility] [address] [place], [address] Platelet mean volume (Bld) [Entitic vol] 8.2 fL Normal 6.2-12.0 [facility] Comment on above: Performed By: #### L 3410.9992 #### [facility] [address] [place], [address] Platelets (Bld) [#/Vol] 189 10*3/uL Normal 150-450 [facility] Comment on above: Performed By: #### L 3410.9992 #### [facility] [address] [place], [address] RBC (Bld) [#/Vol] 3.98 10*6/uL Low 4.2-5.4 [facility] Comment on above: Performed By: #### L 3410.9992 #### [facility] [address] [place], [address] RDW SD 38.0 fl Normal 35.1-43.9 [facility] Comment on above: Performed By: #### L 3410.9992 #### [facility] [address] [place], [address] WBC (Bld) [#/Vol] 5.5 10*3/uL Normal 4.4-11.0 [facility] Comment on above: Performed By: #### L 3410.9992 #### [facility] [address] [place], [address] Comprehensive Metabolic Prof [facility] 11-28-2024 Albumin [Mass/Vol] 4.4 g/dL Normal 3.4-4.8 [facility] Comment on above: Performed By: #### L 3410.9992 #### [facility] [address] [place], [address] Albumin/Globulin [Mass ratio] 2.0 {ratio} Normal 0.9-2.4 [facility] Comment on above: Performed By: #### L 3410.9992 #### [facility] [address] [place], [address] ALK PHOS 73 U/L Normal 35-104 [facility] Comment on above: Performed By: #### L 3410.9992 #### [facility] [address] [place], [address] ALT [Catalytic activity/Vol] 17 U/L Normal <=34 [facility] Comment on above: Performed By: #### L 3410.9992 #### [facility] [address] [place], [address] AST [Catalytic activity/Vol] 22 U/L Normal <=31 [facility] Comment on above: Performed By: #### L 3410.9992 #### [facility] [address] [place], [address] Bilirubin [Mass/Vol] 0.49 mg/dL Normal 0.00-1.30 [facility] Comment on above: Performed By: #### L 3410.9992 #### [facility] [address] [place], [address] BUN/CRE 18.9 RATIO Normal 10-20 [facility] Comment on above: Performed By: #### L 3410.9992 #### [facility] [address] [place], [address] Calcium [Mass/Vol] 9.0 mg/dL Normal 7.6-11.0 [facility] Comment on above: Performed By: #### L 3410.9992 #### [facility] [address] [place], [address] Chloride [Moles/Vol] 103 mmol/L Normal 98-108 [facility] Comment on above: Performed By: #### L 3410.9992 #### [facility] [address] [place], [address] CO2 [Moles/Vol] 26.7 mmol/L Normal 21.0-32.0 [facility] Comment on above: Performed By: #### L 3410.9992 #### [facility] [address] [place], [address] Creatinine [Mass/Vol] 0.79 mg/dL Normal 0.70-1.20 [facility] Comment on above: Performed By: #### L 3410.9992 #### [facility] [address] [place], [address] GAP 10 Normal 5-15 [facility] Comment on above: Performed By: #### L 3410.9992 #### [facility] [address] [place], [address] GFR/1.73 sq M.predicted among non-blacks MDRD (S/P/Bld) [Vol rate/Area] 73 mL/min/{1.73_m2} Normal >60 [facility] Comment on above: Result Comment: mL/m in/1.73m2 CKD-EPI Creatinine Equation (2020) Performed By: #### L 3410.9992 #### [facility] [address] [place], [address] Globulin (S) [Mass/Vol] 2.2 g/dL Normal 2.2-4.2 [facility] Comment on above: Performed By: #### L 3410.9992 #### [facility] [address] [place], [address] Glucose [Mass/Vol] 117 mg/dL High 70-99 [facility] Comment on above: Performed By: #### L 3410.9992 #### [facility] [address] [place], [address] Potassium [Moles/Vol] 3.8 mmol/L Normal 3.3-5.1 [facility] Comment on above: Performed By: #### L 3410.9992 #### [facility] [address] [place], [address] Sodium [Moles/Vol] 140 mmol/L Normal 133-145 [facility] Comment on above: Performed By: #### L 3410.9992 #### [facility] [address] [place], [address] T PROT 6.6 g/dL Normal 5.9-8.4 [facility] Comment on above: Performed By: #### L 3410.9992 #### [facility] [address] [place], [address] Urea nitrogen [Mass/Vol] 15 mg/dL Normal 4-19 [facility] Comment on above: Performed By: #### L 3410.9992 #### [facility] [address] [place], [address] M100.678on 11-28-2024 M100.678 Pending SARS-CoV-2 (COVID 19) Negative INFLUENZA A Negative INFLUENZA B Negative RSV PCR Negative Normal [facility] Comment on above: Performed By: #### L 3410.9992 #### [facility] [address] [place], [address] Inital Evaluation (1) - PTon 10-29-2024 Inital Evaluation (1) - PT [facility] [address] [place] [address] / REHABILITATION SERVICES INITIAL EVALUATION MR#: [id number] Acct: [id number] Name: ALISON SANTACRUZ Rep #: [id number] : 1940 84 From: Brice Walter DPT, OCS, CSCS Referring Dr.: Dr. Rudi Tolentino MD Status: REG RCR Insurance: MEDICARE PART A B [facility] Patient's Visit Information Visit Information Visit Information: ALISON SANTACRUZ is a 84 year old F referred to Physical Therapy by Dr. Rudi Tolentino MD with a diagnosis of LBP. Date of Evaluation: 10/29/24 Physical Therapist: Brice Walter DPT, OCS, CSCS Visit Plan Frequency: 1-2x /Week Duration: 4-6 Weeks Plan: 1-2x/week for up to 4-6 weeks if neeeded. IE HEP trunk rotation, PPT 20x and skc 10x 3x/day, supine quad stretch 30 4x daily and GET back in pool and start moving. F/U in two weeks to consider if she needs more pool instruct, progress to core strength on land or more frequent visits, start every other week. Subjective Subjective: Needs education on LB. needs trazadone to sleep. Waking up LB kills her. This has happened for several months and not sure why. Most pain is in am. Used to work out in pool until she got sick. No longer doing that. Lives at [place] for assisted living. now n allergies. back aches during day but not avoiding anything, just hard to move in the am. Basic ADL all i. Hobbies; tj, swimming, Exercises: no Employed: no Pain LBP: Pain Intensity (Out of 10): 0 Pain Intensity Range: 0 and 5 Comment: tylenol helps, achy all the time. Objective Objective: Walks into PT without pain today adn normal adn I gait. trasnfers chair andd bed I. Good balance. Heel adn toe walk I. Lumbar AROM ext painful centrally and mod limited, flexion adn SB are good and painfree. quad tightness apparent into psoas B. - SLR, - slump hip and knee adn ankle aROM WFL reflexes 2/3 patella and achilles B. sensation LE WNL to gross light touch B. strength hips and core 3/5 without pain, knees and ankles 4/5 , no myotomal problems noted. Unsteady in core with seated hip testing. Balance/Special Test Scores Oswestry Low Back Score: 12 Goals Goal 1:: I appropriate home pool adn home based core strength adn ROm in NS to manage condition Goal Time Frame: 4-6 Weeks Goal 2:: Pain in am 110 at worst adn 75% better Goal Time Frame: 4-6 Weeks Goal 3:: Oswestry score 6 or better Goal Time Frame: 4-6 Weeks Rehabilitation Potential Physical Therapy Diagnosis: degenrative changes casuing pain and difficulty with am fucntion Rehabilitation Potential: Fair Anticipated Interventions Patient/Client Instruction: Educate patient on: Condition and Plan of Care For the Purpose of:: To decrease pain, To increase ROM, To improve muscle performance and motor function, To increase tolerance to activity/condition/posi tion and To improve ability of physical actions for home/community/work/lei sure Therapeutic Exercise to Include: Strength training, Flexibilty training, In an aquatic setting, Passive ROM, Active ROM and Dynamic Lumbar Stabilization For the Purpose of:: To decrease pain, To increase ROM, To improve nutrient delivery to tissue, To improve muscle performance and motor function, To increase tolerance to activity/condition/posi tion and To improve ability of physical actions for home/community/work/lei sure Text: Thank you for the opportunity to evaluate your patient. For Medicare and Medicare HMO plans, please review the plan of care and approve it. It will need to be FAXED BACK to us at [phone] for Medicare purposes. For Medicare only, by signing this I certify the plan of care. Please let me know if there are questions or concerns regarding this plan of care. Physician Signature: Date: 10/29/24 1214 CC: Dr. Rudi Tolentino MD EBG Signed Normal [facility] Cardiology Visit Reporton Cardiology Visit Report [facility] [address] [place] [address] OFFICE VISIT Date of Service: 10/25/24 MR#: [id number] Acct: [id number] Name: ALISON SANTACRUZ Rep #: [id number] : 1940 Provider: REESE landon Age/Sex: 84/F Location[place] [facility] [place] Status: Signed HPI HPI History of Present Illness Details: This is an 84-year-old female who presents to the office today for cardiovascular follow-up visit. She had carpal tunnel surgery done on her right wrist back in June of 2023. Preop EKG was read as normal sinus rhythm with nonspecific T wave changes. These are very minor T wave changes. However, it was slightly different than an old EKG from July 2016. The patient subsequently underwent a 2D echocardiogram July 14, 2023 that showed a normal ejection fraction of 65% with stage I diastolic dysfunction mild to moderate 1-2+ mitral regurgitation mild tricuspid regurgitation and a right ventricular systolic pressure estimated at 38. Aortic valve sclerosis with no stenosis was documented and 1+ aortic insufficiency was documented. The patient had a CT done of her abdomen in the past which showed abdominal aortic atherosclerotic plaques and calcifications with no aneurysm. The patient has been adverse to taking statins in the past despite the total cholesterol being documented over 300 by her report. She reports that she has tried multiple statins but stopped all of them because of an upset stomach. She and her both agree that the upset stomach may have been at least partially influenced by her resistance to take statins. There is a family history of CVAs presumed to be atherosclerotic in nature. From a cardiac standpoint, the patient is doing well. She denies any palpitations, chest pain, pressure or heaviness. She denies SOB, Orthopnea, and PND. She does not have bleeding issues; no blood in urine, stool, or nosebleeds. She denies any decrease in energy level, myalgias, or claudication. She does not have edema, or sudden weight gain. She denies lightheadedness, dizziness, syncopal or near syncopal episodes, and headaches. Intake Vital Signs 10/14/24 15:37 10/25/24 07:52 10/25/24 09:50 Height 5 ft 6 in 5 ft 6 in 5 ft 6 in Weight: 157 lb BMI 25.3 BP 125/77 H Blood Pressure Location Lt brachial Position Sitting Respiration 14 Pulse 75 Pulse Source Monitor Pulse Oximetry (%) 96 Oxygen Delivery Method room air Intake Visit Reasons: 1 Y FU Sludge Control Operator Required: No Accompanied by: Is patient in pain?: No Allergies Iodinated Contrast Media Allergy (Verified 10/25/24 10:00) Rash atorvastatin (From Lipitor) Adverse Reaction (Verified 10/25/24 10:00) Upset Stomach bupropion (From Wellbutrin) Adverse Reaction (Verified 10/25/24 10:00) Other paroxetine (From Paxil) Adverse Reaction (Verified 10/25/24 10:00) Bahama poorly rosuvastatin (From Crestor) Adverse Reaction (Verified 10/25/24 10:00) Upset Stomach sertraline (From Zoloft) Adverse Reaction (Verified 10/25/24 10:00) Other simvastatin (From Zocor) Adverse Reaction (Verified 10/25/24 10:00) Upset Stomach Medications ???Medication ???Instructions ???Recorded ???Confirmed ???Type amlodipine 5 mg tablet 5 mg PO DAILY 07/14/22 10/25/24 Hi story levothyroxine 137 mcg tablet 137 mcg PO DAILY 07/14/22 10/25/24 History citalopram 40 mg tablet (Celexa) 40 mg PO DAILY 30 days #30 tabs 01 /03/24 08/22/25 Rx trazodone 100 mg tablet 100 mg PO QHS 08/09/23 10/25/24 Hi story pantoprazole 40 mg tablet,delayed 40 mg PO BID #90 tabs 02/16/24 Rx release dicyclomine 10 mg capsule 10 mg PO BID #30 caps 10/07/24 Rx linaclotide 72 mcg capsule 72 mcg PO QAM #60 caps 10/11/24 Rx (Linzess) buspirone 10 mg tablet 10 mg PO TID 10/14/24 10/25/24 His tory fluticasone propionate 50 1 spray intranasal DAILY PRN 10/1410/25/24 History mcg/actuation nasal allergy symptoms spray,suspension (24 Hour Allergy Relief) ondansetron 4 mg disintegrating 4 mg PO Q6H PRN nausea and 5 10/25/24 Rx tablet vomiting #20 tabs ezetimibe 10 mg tablet (Zetia) 10 mg PO QDAY #30 tabs 10/25/24 Rx Ejection fraction %: 65 Have you fallen in the past year?: No PFSH Medical History (Reviewed 10/25/24 @ 09:46 by Marii Perales HEATER OPERATOR HELPER, HEATER OPERATOR HELPER-C) Arthritis Gastric reflux Wears hearing aid Loss of hearing Wears glasses Depression Alcohol use Thyroid disease High cholesterol Easy bruising History of IBS Bleeding hemorrhoids Heartburn Non-smoker History of stress test History of echocardiogram Cardiology follow-up encounter Abnormal EKG Varicose veins of both lower extremities Thrombocytopenia Polyp of colon Hyperlipidemia Adjustment disorder Insomnia IB (more content not included)... Normal [facility] L/S Spine Min 4 Viewson 10-05 0-2024 L/S Spine Min 4 Views [facility] Imaging Services [address] [place] [address] (739) L/S Spine Min 4 Views MR#: [id number] Acct: [id number] Name: ALISON SANTACRUZ Rep #: [id number] : 1940 F 84 From: Steve Wolff MD PCP: Dr. Rudi Tolentino MD Status: REG CLI Study: L/S Spine Min 4 Views Date of Exam: 10/23/24 Exam# [id number] Ordering Dr: Rudi Tolentino MD PROCEDURE: L/S SPINE MIN 4 VIEWS 10/23/2024 REASON FOR EXAM: LOW BACK PAIN, UNSPECIFIED TECHNIQUE: Lumbar spine four views COMPARISON: None FINDINGS: There is levoscoliosis of the lumbar spine with Kumar angle = 25 degrees from L1-4, apex L3. Vertebral body height is grossly maintained. There is loss of disc height at each level. There is severe facet sclerosis. Osteopenia is noted. Vascular calcifications are visible. RAD/L/S Spine Min 4 Views IMPRESSION: There is levoscoliosis of the lumbar spine with Kumar angle = 25 degrees from L1-4, apex L3. There is loss of disc height at each level. Reading Location: [id number] CC: Dr. Rudi Tolentino MD Single End Sewer: Signed [facility] Ova and Parasites 8623on OP OVA AND PARASITES EX AM, ROUTINE These results were obtained using wet preparation(s) and trichrome stained smear. This test does not include testing for Crytosporidium parvum, Cyclospora, or Microsporidia. One negative specimen does not rule out the possibility of a parasitic infection. TESTING PERFORMED AT [facility]. ORIGINAL REPORT ON FILE IN LAB CONTAINS ADDITIONAL TEST SITE INFORMATION. Ova/Parasite Exam NO OVA, CYSTS, OR PARASITES FOUND. [facility] Comment on above: Performed By: #### L 100.0100, L501.2450, L500.4050 #### [facility] Laboratory [facility] [address] [place], [place], [id number] L3410.9992on 10-21-2024 [facility]. COMMENT Normal . [facility] Comment on above: Order Comment: [id number] STOOL CULTURE Result Comment: Test Ordered: [id number] Stool Culture Salmonella/Shigella Screen Note: CB Final report Reference Range: . Result 1 Comment CB Reference Range: . No Salmonella or Shigella recovered. Campylobacter Culture Note: Final report Reference Range: . Result 1 Comment CB Reference Range: . No Campylobacter species isolated. E coli Shiga Toxin EIA Negative CB Reference Range: Negative Performed at: [address] [id number] Customer Support Professional: Remi Davis PhD, Phone: [phone] Performed By: #### L 3410.9992 #### [facility] Laboratory [facility] [place], [place], [address] L3410.9992on 10-17-2024 [facility]. Normal [facility] Comment on above: Order Comment: [id number] STOOL CX Result Comment: STOO L CULTURE Salmonella/Shigella Screen Final Report Result 1 NO Salmonella or Shigella recovered. Campylobacter Culture Final Report Result 1 NO Campylobacter species isolated. E. coli Shiga Toxin EIA NEGATIVE TESTING PERFORMED AT [facility]. ORIGINAL REPORT ON FILE IN LAB CONTAINS ADDITIONAL TEST SITE INFORMATION. Performed By: #### L 100.0100, L501.2450, L500.4050 #### [facility] [address] [place], [place], [address] [employer] Decub and/or Erecton 10-16-2024 Abd Inc Decub and/or Erect [facility] Imaging Services [address] [place] [id number] [employer] Decub and/or Erect MR#: [id number] Acct: [id number] Name: ALISON SANTACRUZ Rep #: [id number] : 1940 F 84 From: Barbara Huerta MD PCP: Dr. Rudi Tolentino MD Status: REG CLI Study: Abd Inc Decub and/or Erect Date of Exam: 10/16 Exam# [id number] Ordering Dr: Rudi Tolentino MD PROCEDURE: ABD INC DECUB AND/OR ERECT 10/16/2024 REASON FOR EXAM: FECAL IMPACTION TECHNIQUE: ABD INC DECUB AND/OR ERECT COMPARISON: CT Abdomen and Pelvis w/Contrast, 10/14/2024 FINDINGS: LUNG BASES: No focal airspace consolidation. Calcified right lower lobe granuloma. BOWEL: The bowel gas pattern is unremarkable. No bowel obstruction. PERITONEUM/SOFT TISSUES: No appreciable free air. No abnormal calcifications. BONES: No acute osseous abnormality. RAD/Abd Inc Decub and/or Erect IMPRESSION: No acute abnormalities. Degenerative changes of the spine. Mild moderate lumbar levoscoliosis. IMPRESSION: No acute findings. Reading Location: [facility] CC: Dr. Rudi Tolentino MD Single End Sewer: Signed Normal [facility] CBC W/Diff, Automatedon 10-04 Absolute Lymph 1.36 X10 3/uL Normal 0.83-4.51 [facility] Comment on above: Performed By: #### L 3410.9992 #### [facility] [address] [place], [place], [address] Absolute Neut 4.4 X10 3/uL Normal 2.0-7.7 [facility] Comment on above: Performed By: #### L 3410.9992 #### [facility] [address] [place], [place], [address] Basophils/100 WBC (Bld) 0.8 % Normal 0-1 [facility] Comment on above: Performed By: #### L 3410.9992 #### [facility] [address] [place], [address] Eosinophils/100 WBC (Bld) 1.4 % Normal 0-5 [facility] Comment on above: Performed By: #### L 3410.9992 #### [facility] [address] [place], [address] Erythrocyte distribution width (RBC) [Ratio] 12.0 % Normal 11.6-14.6 [facility] Comment on above: Performed By: #### L 3410.9992 #### [facility] [address] [place], [address] Hematocrit (Bld) [Volume fraction] 36.4 % Low 37-47 [facility] Comment on above: Performed By: #### L 3410.9992 #### [facility] [address] [place], [address] Hemoglobin (Bld) [Mass/Vol] 12.6 g/dL Normal 12.0-15.0 [facility] Comment on above: Performed By: #### L 3410.9992 #### [facility] [address] [place], [address] IG% 0.300 Normal 0.0-0.9 [facility] Comment on above: Result Comment: IG% - Immature Granulocytes (promyelocytes, myelocytes and metamyelocytes) > 1% indicates that a LEFT SHIFT is Present. Performed By: #### L 3410.9992 #### [facility] [address] [place], [address] Lymphocytes/100 WBC (Bld) 21.4 % Normal 19-41 [facility] Comment on above: Performed By: #### L 3410.9992 #### [facility] [address] [place], [address] MCH (RBC) [Entitic mass] 30.9 pg Normal 27.0-32.0 [facility] Comment on above: Performed By: #### L 3410.9992 #### [facility] [address] [place], [address] MCHC (RBC) [Mass/Vol] 34.6 g/dL Normal 32-36 [facility] Comment on above: Performed By: #### L 3410.9992 #### [facility] [address] [place], [address] MCV (RBC) [Entitic vol] 89.2 fL Normal 81-99 [facility] Comment on above: Performed By: #### L 3410.9992 #### [facility] [address] [place], [address] Monocytes/100 WBC (Bld) 6.3 % Normal 0-10 [facility] Comment on above: Performed By: #### L 3410.9992 #### [facility] [address] [place], [address] Neutrophils/100 WBC (Bld) 69.8 % Normal 47-70 [facility] Comment on above: Performed By: #### L 3410.9992 #### [facility] [address] [place], [address] Nucleated RBC (Bld) [#/Vol] 0 10*3/uL Normal 0-5 [facility] Comment on above: Performed By: #### L 3410.9992 #### [facility] [address] [place], [address] Platelet mean volume (Bld) [Entitic vol] 8.4 fL Normal 6.2-12.0 [facility] Comment on above: Performed By: #### L 3410.9992 #### [facility] [address] [place], [address] Platelets (Bld) [#/Vol] 205 10*3/uL Normal 150-450 [facility] Comment on above: Performed By: #### L 3410.9992 #### [facility] [address] [place], [address] RBC (Bld) [#/Vol] 4.08 10*6/uL Low 4.2-5.4 [facility] Comment on above: Performed By: #### L 3410.9992 #### [facility] [address] [place], [address] RDW SD 39.3 fl Normal 35.1-43.9 [facility] Comment on above: Performed By: #### L 3410.9992 #### [facility] [address] [place], [address] WBC (Bld) [#/Vol] 6.4 10*3/uL Normal 4.4-11.0 [facility] Comment on above: Performed By: #### L 3410.9992 #### [facility] [address] [place], [address] Comprehensive Metabolic Prof [facility] 10-16-2024 Albumin [Mass/Vol] 4.7 g/dL Normal 3.4-4.8 [facility] Comment on above: Performed By: #### L 3410.9992 #### [facility] [address] [place], [address] Albumin/Globulin [Mass ratio] 1.9 {ratio} Normal 0.9-2.4 [facility] Comment on above: Performed By: #### L 3410.9992 #### [facility] [address] [place], [address] ALK PHOS 64 U/L Normal 35-104 [facility] Comment on above: Performed By: #### L 3410.9992 #### [facility] [address] [place], [address] ALT [Catalytic activity/Vol] 18 U/L Normal <=34 [facility] Comment on above: Performed By: #### L 3410.9992 #### [facility] [address] [place], [address] AST [Catalytic activity/Vol] 19 U/L Normal <=31 [facility] Comment on above: Performed By: #### L 3410.9992 #### [facility] [address] [place], [address] Bilirubin [Mass/Vol] 0.82 mg/dL Normal 0.00-1.30 [facility] Comment on above: Performed By: #### L 3410.9992 #### [facility] [address] [place], [address] BUN/CRE 15.0 RATIO Normal 10-20 [facility] Comment on above: Performed By: #### L 3410.9992 #### [facility] [address] [place], [address] Calcium [Mass/Vol] 9.4 mg/dL Normal 7.6-11.0 [facility] Comment on above: Performed By: #### L 3410.9992 #### [facility] [address] [place], [address] Chloride [Moles/Vol] 101 mmol/L Normal 98-108 [facility] Comment on above: Performed By: #### L 3410.9992 #### [facility] [address] [place], [address] CO2 [Moles/Vol] 25.9 mmol/L Normal 21.0-32.0 [facility] Comment on above: Performed By: #### L 3410.9992 #### [facility] [address] [place], [address] Creatinine [Mass/Vol] 0.87 mg/dL Normal 0.70-1.20 [facility] Comment on above: Performed By: #### L 3410.9992 #### [facility] [address] [place], [address] GAP 14 Normal 5-15 [facility] Comment on above: Performed By: #### L 3410.9992 #### [facility] [address] [place], [address] GFR/1.73 sq M.predicted among non-blacks MDRD (S/P/Bld) [Vol rate/Area] 65 mL/min/{1.73_m2} Normal >60 [facility] Comment on above: Result Comment: mL/m in/1.73m2 CKD-EPI Creatinine Equation (2020) Performed By: #### L 3410.9992 #### [facility] [address] [place], [address] Globulin (S) [Mass/Vol] 2.5 g/dL Normal 2.2-4.2 [facility] Comment on above: Performed By: #### L 3410.9992 #### [facility] [address] [place], [address] Glucose [Mass/Vol] 93 mg/dL Normal 70-99 [facility] Comment on above: Performed By: #### L 3410.9992 #### [facility] [address] [place], [address] Potassium [Moles/Vol] 3.7 mmol/L Normal 3.3-5.1 [facility] Comment on above: Performed By: #### L 3410.9992 #### [facility] [address] [place], [address] Sodium [Moles/Vol] 141 mmol/L Normal 133-145 [facility] Comment on above: Performed By: #### L 3410.9992 #### [facility] [address] [place], [address] T PROT 7.2 g/dL Normal 5.9-8.4 [facility] Comment on above: Performed By: #### L 3410.9992 #### [facility] [address] [place], [place], [address] Urea nitrogen [Mass/Vol] 13 mg/dL Normal 4-19 [facility] Comment on above: Performed By: #### L 3410.9992 #### [facility] [address] [place], [address] Hepatitis C Antibodyon 10-16 Hepatitis C Ab Non-Reactive Normal Nonreactive [facility] Comment on above: Result Comment: Reac tive: Presumptive evidence of antibodies to HCV. Follow CDC recommendations for supplemental testing. Non-Reactive: Antibodies to HCV were not detected; does not exclude the possibility of exposure to HCV Reactive Results are presumptive evidence of antibodies to HCV. Follow CDC recommendations for supplemental testing. Order confirmation testing: HCV Quant by PCR testing - HCVPCR #[id number] Non Reactive: < 0.8 Equivocal: >/= 0.8 to < 1.0 Reactive: >/= 1.0 The CDC requires that a reactive/equivocal HCV antibody result be sent out for confirmation. HCV Quant by PCR testing. Performed By: #### L 500.4100, L3890.6301, L501.9520, L506.1001, L500.4050, L100.0100 ####[facility] [address] [place], [address] Lipid Profileon 10-16-2024 CHOL:HDL 3.08 Normal [facility] Comment on above: Performed By: #### L 3410.9992 #### [facility] [address] [place], [address] Cholesterol [Mass/Vol] 249 mg/dL High <=200 [facility] Comment on above: Result Comment: Chol esterol level, Desirable <200 mg/dL Borderline high cholesterol 200-239 mg/dL High cholesterol >=240 mg/dL Recommendations of the NCEP Adult Treatment Panel for the following risk-cutoff thresholds for the [place] population. Performed By: #### L 3410.9992 #### [facility] [address] [facility] [address] Cholesterol in HDL [Mass/Vol] 81 mg/dL Normal [facility] Comment on above: Result Comment: Cassie onal Cholesterol Education Program (NCEP) guidelines: <40 mg/dL: Low HDL-cholesterol (major risk factor for CHD) >= 60 mg/dL: High HDL-cholesterol (negative risk factor for CHD) HDL-cholesterol is affected by a number of factors, e.g. smoking, exercise, hormones, sex and age. Performed By: #### L 3410.9992 #### [facility] [address] [facility] [address] Cholesterol in LDL [Mass/Vol] 146 mg/dL Normal [facility] Comment on above: Result Comment: Bord rqacbg=497-428 mg/dL Higher Lkit=660 mg/dL or greater Friedwald Equation for LDL-C Performed By: #### L 3410.9992 #### [facility] [address] [facility] [address] Cholesterol in VLDL [Mass/Vol] 22 mg/dL Normal 5-40 [facility] Comment on above: Performed By: #### L 3410.9992 #### [facility] [address] [facility] [address] Triglyceride [Mass/Vol] 111 mg/dL Normal [facility] Comment on above: Result Comment: The drugs N-Acetylcysteine and Metamizole may falsely depress this assay. Normal range: <150 mg/dL Borderline High: 150-199 mg/dL High: 200-499 mg/dL Very High: >500 mg/dL Performed By: #### L 3410.9992 #### [facility] [address] [facility] [address] Thyroid Stim Hormone (TSH)on 10-16-2024 TSH 1.190 uIU/mL Normal 0.300-4.200 [facility] Comment on above: Performed By: #### L 500.4100, L3890.6301, L501.9520, L506.1001, L500.4050, L100.0100 ####[facility] [address] [place], [address] Vitamin D,25 Hydroxyon 10-16 Vitamin D 25-OH 41.9 ng/mL Normal 30-100 [facility] Comment on above: Result Comment: Adina min D Status Deficiency: <20 ng/mL (50nmol/L) Insufficiency: 20-30 ng/mL (50-75 nmol/L) Sufficiency: 30-100 ng/mL (75-250 nmol/L) Toxicity: >100 ng/mL (>250 nmol/L) Performed By: #### L 500.4100, L3890.6301, L501.9520, L506.1001, L500.4050, L100.0100 ####[facility] [address] [place], [place], [id number] Calprotectin, Stoolon [address] 67 ug/g Normal 0-120 [facility] Comment on above: Result Comment: Conc entration Interpretation Follow-Up < 5 - 50 ug/g Normal None >50 -120 ug/g Borderline Re-evaluate in 4-6 weeks >120 ug/g Abnormal Repeat as clinically indicated Performed at: - [address] [id number] Customer Support Professional: Tomi Wilson MD, Phone: [phone] Performed By: #### L 100.0100, L501.2450, L500.4050 #### [facility] [address] [place], [place], [address] 12 Lead EKGon 10-14-2024 12 Lead EKG [facility] Cardiovascular Services [address] [place] [address] 12 Lead EKG 10/14/24 1614 MR#: [id number] Acct: [id number] Name: ALISON SANTACRUZ Rep #: [id number] : 1940 84 From: Alexis Stovall MD Attending Dr: Status: DEP ER Ordering Dr: Vasyl Middleton DO Date: 10/14/24 Location: ED Sex: F C Admitted: Test Reason : GENERAL Blood Pressure : */* mmHG Vent. Rate : 62 BPM Atrial Rate : 62 BPM P-R Int : 180 ms QRS Dur : 88 ms QT Int : 410 ms P-R-T Axes : 51 8 23 degrees QTcB Int : 416 ms Sinus rhythm with Premature atrial complexes Otherwise normal ECG Confirmed by Alexis Stovall ([id number]), editor newspaper MELITA WILLOUGHBY ([id number]) on 10/15/2024 11:42:39 AM Referred By: Confirmed By: Alexis Stovall 10/15/24 1142 Date Alexis Sotvall MD CC: Dr. Eddie Waggoner MD; Dr. Vasyl Middleton DO Signed Normal [facility] Abdomen/Pelvis W IV Cont ONL Yon 10-14-2024 Abdomen/Pelvis W IV Cont ONLY [facility] Imaging Services [address] [place] [address] Abdomen/Pelvis W IV Cont ONLY MR#: [id number] Acct: [id number] Name: ALISON SANTACRUZ Rep #: [id number] : 1940 F 84 From: José Osborne MD PCP: Dr. Eddie Waggoner MD Status: REG ER Study: Abdomen/Pelvis W IV Cont ONLY Date of Exam: Exam# [id number] Ordering Dr: Vasyl Middleton DO PROCEDURE: ABDOMEN/PELVIS W IV CONT ONLY 10/14/2024 REASON FOR EXAM: LLQ PAIN TECHNIQUE: ABDOMEN/PELVIS W IV CONT ONLY Coronal and Sagittal reconstruction series were provided. CONTRAST: Isovue 300 VOLUME: 97 mL One or more dose reduction techniques were used (e.g., Automated exposure control, adjustment of the mA and/or kV according to patient size, use of iterative reconstruction technique. RADIATION DOSE SUMMARY: CTDlvol: 9+ 16 mGy DLP: 760 mGycm COMPARISON: 10/06/2024. FINDINGS: The peripheral soft tissues are unremarkable. The lung bases are clear. Degenerative changes of the spine. Degenerative changes of the sacroiliac joints. Moderate atherosclerosis. No suspicious lymphadenopathy. The liver, gallbladder, pancreas, spleen, adrenals are unremarkable. Symmetric enhancement of the bilateral kidneys. No significant hydroureteronephrosis. The urinary bladder is unremarkable. Normal caliber large and small bowel. CT/Abdomen/Pelvis W IV Cont ONLY IMPRESSION: No acute abnormality of the abdomen or pelvis. Reading Location: [id number] CC: Dr. Eddie Waggoner MD; Dr. Vasyl Middleton DO Single End Sewer: Signed Normal [facility] CBC W/Diff, Automatedon 10-04 Absolute Lymph 0.96 X10 3/uL Normal 0.83-4.51 [facility] Comment on above: Performed By: #### L 100.0100, L501.2450, L500.4050 #### [facility] [address] [place], [address] Absolute Neut 2.0 X10 3/uL Normal 2.0-7.7 [facility] Comment on above: Performed By: #### L 100.0100, L501.2450, L500.4050 #### [facility] [address] [place], [address] Basophils/100 WBC (Bld) 0.9 % Normal 0-1 [facility] Comment on above: Performed By: #### L 100.0100, L501.2450, L500.4050 #### [facility] [address] [place], [address] Eosinophils/100 WBC (Bld) 1.8 % Normal 0-5 [facility] Comment on above: Performed By: #### L 100.0100, L501.2450, L500.4050 #### [facility] [address] [place], [address] Erythrocyte distribution width (RBC) [Ratio] 11.9 % Normal 11.6-14.6 [facility] Comment on above: Performed By: #### L 100.0100, L501.2450, L500.4050 #### [facility] [address] [place], [address] Hematocrit (Bld) [Volume fraction] 35.0 % Low 37-47 [facility] Comment on above: Performed By: #### L 100.0100, L501.2450, L500.4050 #### [facility] [address] [place], [address] Hemoglobin (Bld) [Mass/Vol] 12.0 g/dL Normal 12.0-15.0 [facility] Comment on above: Performed By: #### L 100.0100, L501.2450, L500.4050 #### [facility] [address] [place], [address] IG% 0.600 Normal 0.0-0.9 [facility] Comment on above: Result Comment: IG% - Immature Granulocytes (promyelocytes, myelocytes and metamyelocytes) > 1% indicates that a LEFT SHIFT is Present. Performed By: #### L 100.0100, L501.2450, L500.4050 #### [facility] [address] [place], [address] Lymphocytes/100 WBC (Bld) 28.4 % Normal 19-41 [facility] Comment on above: Performed By: #### L 100.0100, L501.2450, L500.4050 #### [facility] [address] [place], [address] MCH (RBC) [Entitic mass] 30.5 pg Normal 27.0-32.0 [facility] Comment on above: Performed By: #### L 100.0100, L501.2450, L500.4050 #### [facility] [address] [place], [address] MCHC (RBC) [Mass/Vol] 34.3 g/dL Normal 32-36 [facility] Comment on above: Performed By: #### L 100.0100, L501.2450, L500.4050 #### [facility] [address] [place], [address] MCV (RBC) [Entitic vol] 88.8 fL Normal 81-99 [facility] Comment on above: Performed By: #### L 100.0100, L501.2450, L500.4050 #### [facility] [address] [place], [address] Monocytes/100 WBC (Bld) 8.6 % Normal 0-10 [facility] Comment on above: Performed By: #### L 100.0100, L501.2450, L500.4050 #### [facility] [address] [place], [address] Neutrophils/100 WBC (Bld) 59.7 % Normal 47-70 [facility] Comment on above: Performed By: #### L 100.0100, L501.2450, L500.4050 #### [facility] [address] [place], [address] Nucleated RBC (Bld) [#/Vol] 0 10*3/uL Normal 0-5 [facility] Comment on above: Performed By: #### L 100.0100, L501.2450, L500.4050 #### [facility] [address] [place], [address] Platelet mean volume (Bld) [Entitic vol] 8.4 fL Normal 6.2-12.0 [facility] Comment on above: Performed By: #### L 100.0100, L501.2450, L500.4050 #### [facility] [address] [place], [address] Platelets (Bld) [#/Vol] 170 10*3/uL Normal 150-450 [facility] Comment on above: Performed By: #### L 100.0100, L501.2450, L500.4050 #### [facility] [address] [place], [address] RBC (Bld) [#/Vol] 3.94 10*6/uL Low 4.2-5.4 [facility] Comment on above: Performed By: #### L 100.0100, L501.2450, L500.4050 #### [facility] [address] [place], [address] RDW SD 38.3 fl Normal 35.1-43.9 [facility] Comment on above: Performed By: #### L 100.0100, L501.2450, L500.4050 #### [facility] [address] [place], [address] WBC (Bld) [#/Vol] 3.4 10*3/uL Low 4.4-11.0 [facility] Comment on above: Performed By: #### L 100.0100, L501.2450, L500.4050 #### [facility] [address] [place], [address] Comprehensive Metabolic Prof [facility] 10-14-2024 Albumin [Mass/Vol] 4.5 g/dL Normal 3.4-4.8 [facility] Comment on above: Performed By: #### L 100.0100, L501.2450, L500.4050 #### [facility] [address] [place], [address] Albumin/Globulin [Mass ratio] 1.9 {ratio} Normal 0.9-2.4 [facility] Comment on above: Performed By: #### L 100.0100, L501.2450, L500.4050 #### [facility] [address] [place], [address] ALK PHOS 64 U/L Normal 35-104 [facility] Comment on above: Performed By: #### L 100.0100, L501.2450, L500.4050 #### [facility] [address] [place], [address] ALT [Catalytic activity/Vol] 16 U/L Normal <=34 [facility] Comment on above: Performed By: #### L 100.0100, L501.2450, L500.4050 #### [facility] [address] [place], [address] AST [Catalytic activity/Vol] 20 U/L Normal <=31 [facility] Comment on above: Performed By: #### L 100.0100, L501.2450, L500.4050 #### [facility] [address] [place], [address] Bilirubin [Mass/Vol] 0.85 mg/dL Normal 0.00-1.30 [facility] Comment on above: Performed By: #### L 100.0100, L501.2450, L500.4050 #### [facility] [address] [place], [address] BUN/CRE 12.4 RATIO Normal 10-20 [facility] Comment on above: Performed By: #### L 100.0100, L501.2450, L500.4050 #### [facility] [address] [place], [address] Calcium [Mass/Vol] 9.3 mg/dL Normal 7.6-11.0 [facility] Comment on above: Performed By: #### L 100.0100, L501.2450, L500.4050 #### [facility] [address] [place], [address] Chloride [Moles/Vol] 102 mmol/L Normal 98-108 [facility] Comment on above: Performed By: #### L 100.0100, L501.2450, L500.4050 #### [facility] [address] [place], [address] CO2 [Moles/Vol] 23.2 mmol/L Normal 21.0-32.0 [facility] Comment on above: Performed By: #### L 100.0100, L501.2450, L500.4050 #### [facility] [address] [place], [address] Creatinine [Mass/Vol] 0.82 mg/dL Normal 0.70-1.20 [facility] Comment on above: Performed By: #### L 100.0100, L501.2450, L500.4050 #### [facility] [address] [place], [address] ECRCL 49.95 ml/min Low 50-250 [facility] Comment on above: Performed By: #### L 100.0100, L501.2450, L500.4050 #### [facility] [address] [place], [address] GAP 14 Normal 5-15 [facility] Comment on above: Performed By: #### L 100.0100, L501.2450, L500.4050 #### [facility] [address] [place], [address] GFR/1.73 sq M.predicted among non-blacks MDRD (S/P/Bld) [Vol rate/Area] 70 mL/min/{1.73_m2} Normal >60 [facility] Comment on above: Result Comment: mL/m in/1.73m2 CKD-EPI Creatinine Equation (2020) Performed By: #### L 100.0100, L501.2450, L500.4050 #### [facility] [address] [place], [address] Globulin (S) [Mass/Vol] 2.4 g/dL Normal 2.2-4.2 [facility] Comment on above: Performed By: #### L 100.0100, L501.2450, L500.4050 #### [facility] [address] [place], [address] Glucose [Mass/Vol] 88 mg/dL Normal 70-99 [facility] Comment on above: Performed By: #### L 100.0100, L501.2450, L500.4050 #### [facility] [address] [place], [address] Potassium [Moles/Vol] 4.0 mmol/L Normal 3.3-5.1 [facility] Comment on above: Performed By: #### L 100.0100, L501.2450, L500.4050 #### [facility] [address] [place], [address] Sodium [Moles/Vol] 139 mmol/L Normal 133-145 [facility] Comment on above: Performed By: #### L 100.0100, L501.2450, L500.4050 #### [facility] [address] [place], [address] T PROT 6.9 g/dL Normal 5.9-8.4 [facility] Comment on above: Performed By: #### L 100.0100, L501.2450, L500.4050 #### [facility] [address] [place], [address] Urea nitrogen [Mass/Vol] 10 mg/dL Normal 4-19 [facility] Comment on above: Performed By: #### L 100.0100, L501.2450, L500.4050 #### [facility] [address] [place], [address] Emergency Department Summary on 10-14-2024 Emergency Department Summary [facility] Medical Records Department [address] [place] [address] Emergency Department Summary 10/14/24 MR#: [id number] Acct: [id number] Name: ALISON SANTACRUZ Rep #: [id number] : 1940 84 From: Vasyl Middleton DO PCP: Dr. Eddie Waggoner MD Status:REG ER Location: ED ADDENDUM by Dr. Vasyl Middleton DO on 10/14/24 at 1950 Patient's EKG reviewed showed sinus rhythm with PACs noted. 10/14/241949 Cosigner Signature (if applicable): cc: Dr. Eddie Waggoner MD * Signed HPI History of Present Illness Chief Complaint: General Illness Narrative Narrative: Patient is a 84-year-old female with past medical history IBS, hypothyroidism, thrombocytopenia, hyperlipidemia, anxiety, hypertension who presented to the emergency department with a chief complaint of diarrhea and not feeling well. Patient states that she was here recently and was ultimately sent home. She states that since going home she notes that she has had abdominal pain and diarrhea she states that she tries to eat and immediately goes through her. She states that she has been taking a lot of Pepto-Bismol lately and notes that her stools have been dark but denies any blood. States that she had a stool tested recently for C. difficile and was negative. States that she followed up with Dr. Shook's physician licensed sales assistant and they prescribed her some medications which do not appear to be helping. [facility] Medical History Arthritis Gastric reflux Wears hearing [...] mg tablet 5 mg PO DAILY 07/14/22 10/14/24 Hi story levothyroxine 137 mcg tablet 137 mcg PO DAILY 07/14/22 10/14/24 History citalopram 40 mg tablet (Celexa) 40 mg PO DAILY 30 days #30 tabs 10/14/24 Rx trazodone 100 mg tablet 100 mg PO QHS 08/09/23 10/13/24 Hi story pantoprazole 40 mg tablet,delayed 40 mg PO BID #90 tabs 02/16/24 Rx release dicyclomine 10 mg capsule 10 mg PO BID #30 caps 10/07/2401/28 Rx famotidine 40 mg tablet 40 mg PO QDAY #30 tabs 10/11/24 Rx linaclotide 72 mcg capsule 72 mcg PO QAM #60 caps 10/11/24 Rx (Linzess) buspirone 10 mg tablet 10 mg PO TID 10/14/24 10/14/24 His tory fluticasone propionate 50 1 spray intranasal DAILY PRN 10/14 Unknown History mcg/actuation nasal allergy symptoms spray,suspension (24 Hour Allergy Relief) ondansetron 4 mg disintegrating 4 mg PO Q6H PRN nausea and 5 Unknown Rx tablet vomiting #20 tabs Allergy/AdvReac Type Severity Reaction Status Date / Time Iodinated Contrast Media Allergy Rash Verified 10/14/24 15:37 atorvastatin (From Lipitor) AdvReac Upset Verified 10/14/24 15:37 Stomach bupropion (From Wellbutrin) AdvReac Other Verified 10/14/24 15:37 paroxetine (From Paxil) AdvReac Bahama poorly Verified 10/14/24 15:37 rosuvastatin (From Crestor) AdvReac Upset Verified 10/14/24 15:37 Stomach sertraline (From Zoloft) AdvReac Other Verified 10/14/24 15:37 simvastatin (From Zocor) AdvReac Upset Verified 10/14/24 15:37 Stomach Family History Mother Hypertension Father Hypertension [...] substance use type: does not use ROS ROS ED ROS Narrative Constitutional: Denies any fevers, chills, headaches Eyes: Denies change in vision double vision blurry vision Cardiovascular: Denies chest pain Respiratory: Denies shortness of breath, coughing Abdomen: Complains of abdominal pain and diarrhea denies nausea or vomiting : Denies any urinary symptom (more content not included)... Normal [facility] Giardia Lamblia, Stool EIAon 10-14-2024 Giardia Stool Negative Normal Negative [facility] Comment on above: Result Comment: Perf ormed at: [facility] [address] [id number] Customer Support Professional: Tomi Wilson MD, Phone: [phone] Performed at: [facility] [address] [id number] Customer Support Professional: Remi Davis PhD, Phone: [phone] Performed By: #### L 100.0100, L501.2450, L500.4050 #### [facility] [address] [place], [address] L7000.0750on 10-14-2024 P ELASTASE,FECA 258 Normal >200 [facility] Comment on above: Result Comment: Resu lt Units: ug Elast./g Severe Pancreatic Insufficiency: <100 Moderate Pancreatic Insufficiency: 100 - 200 Normal: >200 Performed By: #### L 100.0100, L501.2450, L500.4050 #### [facility] [address] [place], [address] Lipaseon 10-14-2024 Lipase [Catalytic activity/Vol] 21 U/L Normal 13-75 [facility] Comment on above: Result Comment: Yuko joseph note: LIPASE revised reference range effective 22. New Lipase methodology. Expected to produce lower values than the previous assay method. NEW Reference Range: 13 - 75 U/L Performed By: #### L 100.0100, L501.2450, L500.4050 #### [facility] [address] [place], [address] M100.677on 10-14-2024 M100.677 Negative Normal [facility] Comment on above: Performed By: #### M 100.678, M100.677 ####[facility] [address] [place], [address] M100.678on 10-14-2024 M100.678 Pending SARS-CoV-2 (COVID 19) Negative INFLUENZA A Negative INFLUENZA B Negative RSV PCR Negative Normal [facility] Comment on above: Performed By: #### M 100.678, M100.677 ####[facility] [address] [place], [address] Urinalysis, Completeon 10-14 EPI,SQUAMOUS 0-5 SEEN Normal 5-10 [facility] Comment on above: Order Comment: CLEAN CATCH Performed By: #### L 400.0001 ####[facility] [address] [place], [address] RBC 0-5 SEEN Normal 0-5 [facility] Comment on above: Order Comment: CLEAN CATCH Performed By: #### L 400.0001 ####[facility] [address] [place], [address] WBC 0-5 SEEN Normal 0-5 [facility] Comment on above: Order Comment: CLEAN CATCH Performed By: #### L 400.0001 ####[facility] [address] [place], [address] BACTERIA 0 SEEN Normal None Seen [facility] Comment on above: Order Comment: CLEAN CATCH Performed By: #### L 400.0001 ####[facility] [address] [place], [address] Mucus Ql (Urine sed) 0 SEEN Normal [facility] Comment on above: Order Comment: CLEAN CATCH Performed By: #### L 400.0001 ####[facility] [address] [place], [address] CDIFF (PCR)on 10-12-2024 CDIFF Pending 027 027 NAP1-B1 Presumptive Negative *for epidemiolologic???use C. Diff PCR Negative- No toxigenic C. Diff Detected Normal [facility] Comment on above: Performed By: #### L 100.0100, L501.2450, L500.4050 #### [facility] [address] [place], [address] CBC W/Diff, Automatedon 08-0 Absolute Lymph 0.79 X10 3/uL Low 0.83-4.51 [facility] Comment on above: Performed By: #### L 100.0100, L500.4050 #### [facility] [address] [place], [address] Absolute Neut 2.3 X10 3/uL Normal 2.0-7.7 [facility] Comment on above: Performed By: #### L 100.0100, L500.4050 #### [facility] [address] [place], [address] Basophils/100 WBC (Bld) 0.9 % Normal 0-1 [facility] Comment on above: Performed By: #### L 100.0100, L500.4050 #### [facility] [address] [place], [address] Eosinophils/100 WBC (Bld) 1.7 % Normal 0-5 [facility] Comment on above: Performed By: #### L 100.0100, L500.4050 #### [facility] [address] [place], [address] Erythrocyte distribution width (RBC) [Ratio] 11.8 % Normal 11.6-14.6 [facility] Comment on above: Performed By: #### L 100.0100, L500.4050 #### [facility] [address] [place], [address] Hematocrit (Bld) [Volume fraction] 35.2 % Low 37-47 [facility] Comment on above: Performed By: #### L 100.0100, L500.4050 #### [facility] [address] [place], [address] Hemoglobin (Bld) [Mass/Vol] 11.9 g/dL Low 12.0-15.0 [facility] Comment on above: Performed By: #### L 100.0100, L500.4050 #### [facility] [address] [place], [address] IG% 0.600 Normal 0.0-0.9 [facility] Comment on above: Result Comment: IG% - Immature Granulocytes (promyelocytes, myelocytes and metamyelocytes) > 1% indicates that a LEFT SHIFT is Present. Performed By: #### L 100.0100, L500.4050 #### [facility] [address] [place], [address] Lymphocytes/100 WBC (Bld) 22.5 % Normal 19-41 [facility] Comment on above: Performed By: #### L 100.0100, L500.4050 #### [facility] [address] [place], [address] MCH (RBC) [Entitic mass] 30.5 pg Normal 27.0-32.0 [facility] Comment on above: Performed By: #### L 100.0100, L500.4050 #### [facility] [address] [place], [address] MCHC (RBC) [Mass/Vol] 33.8 g/dL Normal 32-36 [facility] Comment on above: Performed By: #### L 100.0100, L500.4050 #### [facility] [address] [place], [address] MCV (RBC) [Entitic vol] 90.3 fL Normal 81-99 [facility] Comment on above: Performed By: #### L 100.0100, L500.4050 #### [facility] [address] [place], [address] Monocytes/100 WBC (Bld) 7.7 % Normal 0-10 [facility] Comment on above: Performed By: #### L 100.0100, L500.4050 #### [facility] [address] [place], [address] Neutrophils/100 WBC (Bld) 66.6 % Normal 47-70 [facility] Comment on above: Performed By: #### L 100.0100, L500.4050 #### [facility] [address] [place], [address] Nucleated RBC (Bld) [#/Vol] 0 10*3/uL Normal 0-5 [facility] Comment on above: Performed By: #### L 100.0100, L500.4050 #### [facility] [address] [place], [address] Platelet mean volume (Bld) [Entitic vol] 8.2 fL Normal 6.2-12.0 [facility] Comment on above: Performed By: #### L 100.0100, L500.4050 #### [facility] [address] [place], [address] Platelets (Bld) [#/Vol] 163 10*3/uL Normal 150-450 [facility] Comment on above: Performed By: #### L 100.0100, L500.4050 #### [facility] [address] [place], [address] RBC (Bld) [#/Vol] 3.90 10*6/uL Low 4.2-5.4 [facility] Comment on above: Performed By: #### L 100.0100, L500.4050 #### [facility] [address] [place], [address] RDW SD 38.6 fl Normal 35.1-43.9 [facility] Comment on above: Performed By: #### L 100.0100, L500.4050 #### [facility] [address] [place], [address] WBC (Bld) [#/Vol] 3.5 10*3/uL Low 4.4-11.0 [facility] Comment on above: Performed By: #### L 100.0100, L500.4050 #### [facility] [address] [place], [address] Comprehensive Metabolic Prof [facility] 10-11-2024 Albumin [Mass/Vol] 4.5 g/dL Normal 3.4-4.8 [facility] Comment on above: Performed By: #### L 100.0100, L500.4050 #### [facility] [address] [place], [address] Albumin/Globulin [Mass ratio] 1.8 {ratio} Normal 0.9-2.4 [facility] Comment on above: Performed By: #### L 100.0100, L500.4050 #### [facility] [address] [place], [address] ALK PHOS 66 U/L Normal 35-104 [facility] Comment on above: Performed By: #### L 100.0100, L500.4050 #### [facility] [address] [place], [address] ALT [Catalytic activity/Vol] 16 U/L Normal <=34 [facility] Comment on above: Performed By: #### L 100.0100, L500.4050 #### [facility] [address] [place], [address] AST [Catalytic activity/Vol] 22 U/L Normal <=31 [facility] Comment on above: Performed By: #### L 100.0100, L500.4050 #### [facility] [address] [place], [address] Bilirubin [Mass/Vol] 1.07 mg/dL Normal 0.00-1.30 [facility] Comment on above: Performed By: #### L 100.0100, L500.4050 #### [facility] [address] [place], [address] BUN/CRE 14.3 RATIO Normal 10-20 [facility] Comment on above: Performed By: #### L 100.0100, L500.4050 #### [facility] [address] [place], [address] Calcium [Mass/Vol] 9.3 mg/dL Normal 7.6-11.0 [facility] Comment on above: Performed By: #### L 100.0100, L500.4050 #### [facility] [address] [place], [address] Chloride [Moles/Vol] 99 mmol/L Normal 98-108 [facility] Comment on above: Performed By: #### L 100.0100, L500.4050 #### [facility] [address] [place], [address] CO2 [Moles/Vol] 24.3 mmol/L Normal 21.0-32.0 [facility] Comment on above: Performed By: #### L 100.0100, L500.4050 #### [facility] [address] [place], [address] Creatinine [Mass/Vol] 0.80 mg/dL Normal 0.70-1.20 [facility] Comment on above: Performed By: #### L 100.0100, L500.4050 #### [facility] [address] [place], [address] GAP 13 Normal 5-15 [facility] Comment on above: Performed By: #### L 100.0100, L500.4050 #### [facility] [address] [place], [address] GFR/1.73 sq M.predicted among non-blacks MDRD (S/P/Bld) [Vol rate/Area] 71 mL/min/{1.73_m2} Normal >60 [facility] Comment on above: Result Comment: mL/m in/1.73m2 CKD-EPI Creatinine Equation (2020) Performed By: #### L 100.0100, L500.4050 #### [facility] [address] [place], [address] Globulin (S) [Mass/Vol] 2.4 g/dL Normal 2.2-4.2 [facility] Comment on above: Performed By: #### L 100.0100, L500.4050 #### [facility] [address] [place], [address] Glucose [Mass/Vol] 99 mg/dL Normal 70-99 [facility] Comment on above: Performed By: #### L 100.0100, L500.4050 #### [facility] [address] [place], [address] Potassium [Moles/Vol] 4.1 mmol/L Normal 3.3-5.1 [facility] Comment on above: Performed By: #### L 100.0100, L500.4050 #### [facility] [address] [place], [address] Sodium [Moles/Vol] 136 mmol/L Normal 133-145 [facility] Comment on above: Performed By: #### L 100.0100, L500.4050 #### [facility] [address] [place], [address] T PROT 6.9 g/dL Normal 5.9-8.4 [facility] Comment on above: Performed By: #### L 100.0100, L500.4050 #### [facility] [address] [place], [address] Urea nitrogen [Mass/Vol] 12 mg/dL Normal 4-19 [facility] Comment on above: Performed By: #### L 100.0100, L500.4050 #### [facility] [address] [place], [address] Gastroenterology Visit Repor ton 10-11-[address] [facility] [address] [place] [address] OFFICE VISIT Date of Service: 10/11/24 MR#: [id number] Acct: [id number] Name: ALISON SANTACRUZ Rep #: [id number] : 1940 Provider: LIZZETTE Edwards Age/Sex: 84/F Location[place] [facility] [place] Status: Signed Intake Vital Signs 10/06/24 13:13 Height 5 ft 6 in Intake Visit Reasons: ER FU ABDOMINAL PAIN PRESSURE LOWER BACK PAIN Chief Complaint: abdominal pain Allergies Iodinated Contrast Media Allergy (Verified 10/06/24 13:15) Rash atorvastatin (From Lipitor) Adverse Reaction (Verified 10/06/24 13:15) Upset Stomach bupropion (From Wellbutrin) Adverse Reaction (Verified 10/06/24 13:15) Other paroxetine (From Paxil) Adverse Reaction (Verified 10/06/24 13:15) Bahama poorly rosuvastatin (From Crestor) Adverse Reaction (Verified 10/06/24 13:15) Upset Stomach sertraline (From Zoloft) Adverse Reaction (Verified 10/06/24 13:15) Other simvastatin (From Zocor) Adverse Reaction (Verified 10/06/24 13:15) Upset Stomach Have you fallen in the past year?: No Nurse's Note: OV 10/11/24 Pt here for a f/u and reports nausea, abdominal pain, dark stools, and heartburn. [facility] Medical History Arthritis Gastric reflux Wears hearing [...] HPI Chief Complaint: abdominal pain Details: ALISON SANTACRUZ (PAT), is a 84 F who presents to the office today for follow-up [facility] established in Nov 2023 for constipation. [...] few lbs due to lack of appetite. CT abd pelvis 06.20.24; . Bilateral basilar atelectatic pulmonary changes. 2. Unchanged [...] versus mild cystitis. 12. Moderate diffuse spondylosis. GES; not completed [facility] ED 8.25 for abd pain. WOrk up largely unremarkeble CT abd/pelvis No acute process detected. Other findings as above. OV 8.8.25 patient having abdominal pain, nausea dry heaving and general malaise over the past week. She contacted her primar (more content not included)... Normal [facility] Abdomen/Pelvis W IV Cont ONL Yon 10-06-2024 Abdomen/Pelvis W IV Cont ONLY [facility] Imaging Services [address] [address] [place] [place] [id number] Abdomen/Pelvis W IV Cont ONLY MR#: [id number] Acct: [id number] Name: ALISON SANTACRUZ Rep #: [id number] : 1940 F 84 From: Milo Holloway DO PCP: Dr. Eddie Waggoner MD Status: REG ER Study: Abdomen/Pelvis W IV Cont ONLY Date of Exam: Exam# [id number] Ordering Dr: Chris Phillips DO PROCEDURE: ABDOMEN/PELVIS [...] detected. Other findings as above. [facility] CC: Dr. Chris Phillips DO; Dr. Eddie Waggoner MD Single End Sewer: Signed Normal [facility] CBC W/Diff, Automatedon 0 Absolute Lymph 1.12 X10 3/uL Normal 0.83-4.51 [facility] Comment on above: Performed By: #### L 100.0100, L501.2450, L500.4050 #### [facility] [address] [place], [address] Absolute Neut 2.7 X10 3/uL Normal 2.0-7.7 [facility] Comment on above: Performed By: #### L 100.0100, L501.2450, L500.4050 #### [facility] [address] [place], [address] Basophils/100 WBC (Bld) 0.7 % Normal 0-1 [facility] Comment on above: Performed By: #### L 100.0100, L501.2450, L500.4050 #### [facility] [address] [place], [address] Eosinophils/100 WBC (Bld) 3.5 % Normal 0-5 [facility] Comment on above: Performed By: #### L 100.0100, L501.2450, L500.4050 #### [facility] [address] [place], [address] Erythrocyte distribution width (RBC) [Ratio] 11.9 % Normal 11.6-14.6 [facility] Comment on above: Performed By: #### L 100.0100, L501.2450, L500.4050 #### [facility] [address] [place], [address] Hematocrit (Bld) [Volume fraction] 34.6 % Low 37-47 [facility] Comment on above: Performed By: #### L 100.0100, L501.2450, L500.4050 #### [facility] [address] [place], [address] Hemoglobin (Bld) [Mass/Vol] 12.0 g/dL Normal 12.0-15.0 [facility] Comment on above: Performed By: #### L 100.0100, L501.2450, L500.4050 #### [facility] [address] [place], [address] IG% 0.500 Normal 0.0-0.9 [facility] Comment on above: Result Comment: IG% - Immature Granulocytes (promyelocytes, myelocytes and metamyelocytes) > 1% indicates that a LEFT SHIFT is Present. Performed By: #### L 100.0100, L501.2450, L500.4050 #### [facility] [address] [place], [address] Lymphocytes/100 WBC (Bld) 26.3 % Normal 19-41 [facility] Comment on above: Performed By: #### L 100.0100, L501.2450, L500.4050 #### [facility] [address] [place], [address] MCH (RBC) [Entitic mass] 30.9 pg Normal 27.0-32.0 [facility] Comment on above: Performed By: #### L 100.0100, L501.2450, L500.4050 #### [facility] [address] [place], [address] MCHC (RBC) [Mass/Vol] 34.7 g/dL Normal 32-36 [facility] Comment on above: Performed By: #### L 100.0100, L501.2450, L500.4050 #### [facility] [address] [place], [address] MCV (RBC) [Entitic vol] 89.2 fL Normal 81-99 [facility] Comment on above: Performed By: #### L 100.0100, L501.2450, L500.4050 #### [facility] [address] [place], [address] Monocytes/100 WBC (Bld) 6.3 % Normal 0-10 [facility] Comment on above: Performed By: #### L 100.0100, L501.2450, L500.4050 #### [facility] [address] [place], [address] Neutrophils/100 WBC (Bld) 62.7 % Normal 47-70 [facility] Comment on above: Performed By: #### L 100.0100, L501.2450, L500.4050 #### [facility] [address] [place], [address] Nucleated RBC (Bld) [#/Vol] 0 10*3/uL Normal 0-5 [facility] Comment on above: Performed By: #### L 100.0100, L501.2450, L500.4050 #### [facility] [address] [place], [address] Platelet mean volume (Bld) [Entitic vol] 8.3 fL Normal 6.2-12.0 [facility] Comment on above: Performed By: #### L 100.0100, L501.2450, L500.4050 #### [facility] [address] [place], [address] Platelets (Bld) [#/Vol] 170 10*3/uL Normal 150-450 [facility] Comment on above: Performed By: #### L 100.0100, L501.2450, L500.4050 #### [facility] [address] [place], [address] RBC (Bld) [#/Vol] 3.88 10*6/uL Low 4.2-5.4 [facility] Comment on above: Performed By: #### L 100.0100, L501.2450, L500.4050 #### [facility] [address] [place], [address] RDW SD 38.3 fl Normal 35.1-43.9 [facility] Comment on above: Performed By: #### L 100.0100, L501.2450, L500.4050 #### [facility] [address] [place], [address] WBC (Bld) [#/Vol] 4.3 10*3/uL Low 4.4-11.0 [facility] Comment on above: Performed By: #### L 100.0100, L501.2450, L500.4050 #### [facility] [address] [place], [address] Comprehensive Metabolic Prof mdon 10-06-2024 Albumin [Mass/Vol] 4.4 g/dL Normal 3.4-4.8 [facility] Comment on above: Performed By: #### L 100.0100, L501.2450, L500.4050 #### [facility] [address] [place], [address] Albumin/Globulin [Mass ratio] 1.9 {ratio} Normal 0.9-2.4 [facility] Comment on above: Performed By: #### L 100.0100, L501.2450, L500.4050 #### [facility] [address] [place], [address] ALK PHOS 73 U/L Normal 35-104 [facility] Comment on above: Performed By: #### L 100.0100, L501.2450, L500.4050 #### [facility] [address] [place], [address] ALT [Catalytic activity/Vol] 16 U/L Normal <=34 [facility] Comment on above: Performed By: #### L 100.0100, L501.2450, L500.4050 #### [facility] [address] [place], [address] AST [Catalytic activity/Vol] 18 U/L Normal <=31 [facility] Comment on above: Performed By: #### L 100.0100, L501.2450, L500.4050 #### [facility] [address] [place], [address] Bilirubin [Mass/Vol] 0.77 mg/dL Normal 0.00-1.30 [facility] Comment on above: Performed By: #### L 100.0100, L501.2450, L500.4050 #### [facility] [address] [place], [address] BUN/CRE 15.2 RATIO Normal 10-20 [facility] Comment on above: Performed By: #### L 100.0100, L501.2450, L500.4050 #### [facility] [address] [place], [address] Calcium [Mass/Vol] 9.1 mg/dL Normal 7.6-11.0 [facility] Comment on above: Performed By: #### L 100.0100, L501.2450, L500.4050 #### [facility] [address] [place], [address] Chloride [Moles/Vol] 100 mmol/L Normal 98-108 [facility] Comment on above: Performed By: #### L 100.0100, L501.2450, L500.4050 #### [facility] [address] [place], [address] CO2 [Moles/Vol] 25.6 mmol/L Normal 21.0-32.0 [facility] Comment on above: Performed By: #### L 100.0100, L501.2450, L500.4050 #### [facility] [address] [place], [address] Creatinine [Mass/Vol] 0.83 mg/dL Normal 0.70-1.20 [facility] Comment on above: Performed By: #### L 100.0100, L501.2450, L500.4050 #### [facility] [address] [place], [address] ECRCL 49.58 ml/min Low 50-250 [facility] Comment on above: Performed By: #### L 100.0100, L501.2450, L500.4050 #### [facility] [address] [place], [address] GAP 11 Normal 5-15 [facility] Comment on above: Performed By: #### L 100.0100, L501.2450, L500.4050 #### [facility] [address] [place], [address] GFR/1.73 sq M.predicted among non-blacks MDRD (S/P/Bld) [Vol rate/Area] 69 mL/min/{1.73_m2} Normal >60 [facility] Comment on above: Result Comment: mL/m in/1.73m2 CKD-EPI Creatinine Equation (2020) Performed By: #### L 100.0100, L501.2450, L500.4050 #### [facility] [address] [place], [address] Globulin (S) [Mass/Vol] 2.4 g/dL Normal 2.2-4.2 [facility] Comment on above: Performed By: #### L 100.0100, L501.2450, L500.4050 #### [facility] [address] [place], [address] Glucose [Mass/Vol] 121 mg/dL High 70-99 [facility] Comment on above: Performed By: #### L 100.0100, L501.2450, L500.4050 #### [facility] [address] [place], [address] Potassium [Moles/Vol] 4.0 mmol/L Normal 3.3-5.1 [facility] Comment on above: Performed By: #### L 100.0100, L501.2450, L500.4050 #### [facility] [address] [place], [address] Sodium [Moles/Vol] 137 mmol/L Normal 133-145 [facility] Comment on above: Performed By: #### L 100.0100, L501.2450, L500.4050 #### [facility] [address] [place], [address] T PROT 6.8 g/dL Normal 5.9-8.4 [facility] Comment on above: Performed By: #### L 100.0100, L501.2450, L500.4050 #### [facility] [address] [place], [address] Urea nitrogen [Mass/Vol] 13 mg/dL Normal 4-19 [facility] Comment on above: Performed By: #### L 100.0100, L501.2450, L500.4050 #### [facility] [address] [place], [address] Emergency Department Summary on 10-06-2024 Emergency Department Summary [facility] Medical Records Department [address] [place] [address] Emergency Department Summary 10/06/24 MR#: [id number] Acct: [id number] Name: ALISON SANTACRUZ Rep #: [id number] : 1940 84 From: Chris Phillips DO PCP: Dr. Eddie Waggoner MD Status:REG ER Location: ED ADDENDUM by Dr. Winston [...] is discharged home in stable condition. 10/06/24 5048 Cosigner Signature (if applicable): cc: Dr. Eddie [...] intact Psych: Cooperative, appropriate mood and affect [facility] Medical History Arthritis Gastric reflux Wears hearing [...] DAILY 07/14/22 12/15/23 Hi story glucosamine 750 kr-[id number]-bmk 1 tab PO DAILY 07/14/22 04/15/24 History [...] AdvReac Fel (more content not included)... Normal [facility] Lipaseon 10-06-2024 Lipase [Catalytic activity/Vol] 23 U/L Normal 13-75 [facility] Comment on above: Result Comment: Yuko joseph note: LIPASE revised reference range effective 22. New Lipase methodology. Expected to produce lower values than the previous assay method. NEW Reference Range: 13 - 75 U/L Performed By: #### L 3410.9992 #### [facility] [address] [place], [address] Stool Occult Blood iFOBon STOB Positive Normal [facility] Comment on above: Performed By: #### L 100.0100, L501.2450, L500.4050 #### [facility] [address] [place], [address] Urinalysis, Completeon 10-06 BACTERIA 0 SEEN Normal None Seen [facility] Comment on above: Order Comment: ONESIMO CTOR TO SPECIFY Performed By: #### L 100.0100, L501.2450, L500.4050 #### [facility] [address] [place], [address] EPI,SQUAMOUS 0 SEEN Normal 5-10 [facility] Comment on above: Order Comment: ONESIMO CTOR TO SPECIFY Performed By: #### L 100.0100, L501.2450, L500.4050 #### [facility] [address] [place], [address] Mucus Ql (Urine sed) 0 SEEN Normal [facility] Comment on above: Order Comment: ONESIMO CTOR TO SPECIFY Performed By: #### L 100.0100, L501.2450, L500.4050 #### [facility] [address] [place], [address] RBC 0 SEEN Normal 0-5 [facility] Comment on above: Order Comment: COLLE CTOR TO SPECIFY Performed By: #### L 100.0100, L501.2450, L500.4050 #### [facility] [address] [place], [address] WBC 0 SEEN Normal 0-5 [facility] Comment on above: Order Comment: COLLE CTOR TO SPECIFY Performed By: #### L 100.0100, L501.2450, L500.4050 #### [facility] [address] [place], [address] CNOVon 10-05-2024 CNOV Office Visit ([facility]) ALISON SANTACRUZ ([id number]) 1940 F Date Time Provider Department 10/05/24 2:15 PM DAVID ROCHA During your visit today, we recorded the following information about you: Temperature Pulse Respiration Blood pressure 99.4 degrees 85/minute 18/minute 122/78 Weight 72.2 kg David Rocha MD 10/05/2024 2:54 PM Signed [facility] Subjective Alison Shonna Santacruz is a 84 year old [...] As of Date: 10/05/2024 Noted Allergy Reaction EYSQLCO-KSR-[id number] REDUCTASE INHIBIT*10/05/2024 5 - Intolerance Date Reviewed: 10/05/2024 Reviewed by: Damaris Hubbard LPN - Fully Assessed Reason for Visit: Flu Like Symptoms [267] Cmt: X 3 days-diarrhea, stomach hurts, nausea, hot and feels dizzy Primary Visit Diagnosis:Influenza-lik e illness [J11.1] Other Visit Diagnosis:Nausea [R11.0] Order(s):ondansetron [...] Encounter Status:Closed by DAVID ROCHA on 10/05/[address] [facility] Shoulder min 2 Viewson 07-30 Shoulder min 2 Views [facility] Imaging Services [address] [place] [id number] Shoulder min 2 Views MR#: [id number] Acct: [id number] Name: ALISON SANTACRUZ Rep #: [id number] : 1940 F 84 From: Zbigniew Martinez MD PCP: Dr. Eddie Waggoner MD Status: REG CLI Study: Shoulder min 2 Views Date of Exam: 07/30/24 Exam# [id number] Ordering Dr: Eddie Waggoner MD PROCEDURE: SHOULDER MIN 2 VIEWS 07/30/2024 REASON FOR EXAM: SHOULDER PAIN X 1 MONTH, NO INJURY TECHNIQUE: Four views right shoulder COMPARISON: None available FINDINGS: No fracture or dislocation. Mild glenohumeral joint osteoarthrosis. Zshm-zz-pehidshq acromioclavicular joint osteoarthrosis with a downward directed osteophyte at the distal clavicle suggested. Visualized right lung appears clear. RAD/Shoulder min 2 Views IMPRESSION: Osteoarthrosis as above. Reading Location: [facility] CC: Dr. Eddie Waggoner MD Single End Sewer: Signed Normal [facility] Abdomen/Pelvis WITH Contrast on 06-20-2024 Abdomen/Pelvis WITH Contrast [facility] Services [address], [place] [id number] Abdomen/Pelvis WITH Contrast MR#: [id number] Acct: [id number] Name: ALISON SANTACRUZ Rep #: [id number] : 1940 F 83 From: Celia lance MD PCP: Dr. Eddie Waggoner MD Status: REG CLI Study: Abdomen/Pelvis WITH Contrast Date of Exam: Exam# [id number] Ordering Dr: Rajwinder Luis PROCEDURE: ABDOMEN/PELVIS WITH [...] cystitis. 12. Moderate diffuse spondylosis. Reading Location: [place] [address] CC: Dr. Eddie Waggoner MD; LIZZETTE Edwards Single End Sewer: Signed Normal [facility] CBC W/Diff, Automatedon - Absolute Lymph 0.99 X10 3/uL Normal 0.83-4.51 [facility] Comment on above: Performed By: #### L 100.0100, L501.2450, L500.4050 #### [facility] [address] [place], [place], [address] Absolute Neut 1.6 X10 3/uL Low 2.0-7.7 [facility] Comment on above: Performed By: #### L 100.0100, L501.2450, L500.4050 #### [facility] [address] [place], [address] Basophils/100 WBC (Bld) 1.6 % High 0-1 [facility] Comment on above: Performed By: #### L 100.0100, L501.2450, L500.4050 #### [facility] [address] [place], [address] Eosinophils/100 WBC (Bld) 7.2 % High 0-5 [facility] Comment on above: Performed By: #### L 100.0100, L501.2450, L500.4050 #### [facility] [address] [place], [address] Erythrocyte distribution width (RBC) [Ratio] 12.0 % Normal 11.6-14.6 [facility] Comment on above: Performed By: #### L 100.0100, L501.2450, L500.4050 #### [facility] [address] [place], [address] Hematocrit (Bld) [Volume fraction] 37.2 % Normal 37-47 [facility] Comment on above: Performed By: #### L 100.0100, L501.2450, L500.4050 #### [facility] [address] [place], [address] Hemoglobin (Bld) [Mass/Vol] 12.9 g/dL Normal 12.0-15.0 [facility] Comment on above: Performed By: #### L 100.0100, L501.2450, L500.4050 #### [facility] [address] [place], [address] IG% 0.600 Normal 0.0-0.9 [facility] Comment on above: Result Comment: IG% - Immature Granulocytes (promyelocytes, myelocytes and metamyelocytes) > 1% indicates that a LEFT SHIFT is Present. Performed By: #### L 100.0100, L501.2450, L500.4050 #### [facility] [address] [place], [address] Lymphocytes/100 WBC (Bld) 31.1 % Normal 19-41 [facility] Comment on above: Performed By: #### L 100.0100, L501.2450, L500.4050 #### [facility] [address] [place], [address] MCH (RBC) [Entitic mass] 30.6 pg Normal 27.0-32.0 [facility] Comment on above: Performed By: #### L 100.0100, L501.2450, L500.4050 #### [facility] [address] [place], [address] MCHC (RBC) [Mass/Vol] 34.7 g/dL Normal 32-36 [facility] Comment on above: Performed By: #### L 100.0100, L501.2450, L500.4050 #### [facility] [address] [place], [address] MCV (RBC) [Entitic vol] 88.4 fL Normal 81-99 [facility] Comment on above: Performed By: #### L 100.0100, L501.2450, L500.4050 #### [facility] [address] [place], [address] Monocytes/100 WBC (Bld) 10.1 % High 0-10 [facility] Comment on above: Performed By: #### L 100.0100, L501.2450, L500.4050 #### [facility] [address] [place], [address] Neutrophils/100 WBC (Bld) 49.4 % Normal 47-70 [facility] Comment on above: Performed By: #### L 100.0100, L501.2450, L500.4050 #### [facility] [address] [place], [address] Nucleated RBC (Bld) [#/Vol] 0 10*3/uL Normal 0-5 [facility] Comment on above: Performed By: #### L 100.0100, L501.2450, L500.4050 #### [facility] [address] [place], [address] Platelet mean volume (Bld) [Entitic vol] 8.7 fL Normal 6.2-12.0 [facility] Comment on above: Performed By: #### L 100.0100, L501.2450, L500.4050 #### [facility] [address] [place], [address] Platelets (Bld) [#/Vol] 178 10*3/uL Normal 150-450 [facility] Comment on above: Performed By: #### L 100.0100, L501.2450, L500.4050 #### [facility] [address] [place], [address] RBC (Bld) [#/Vol] 4.21 10*6/uL Normal 4.2-5.4 [facility] Comment on above: Performed By: #### L 100.0100, L501.2450, L500.4050 #### [facility] [address] [place], [address] RDW SD 38.6 fl Normal 35.1-43.9 [facility] Comment on above: Performed By: #### L 100.0100, L501.2450, L500.4050 #### [facility] [address] [place], [address] WBC (Bld) [#/Vol] 3.2 10*3/uL Low 4.4-11.0 [facility] Comment on above: Performed By: #### L 100.0100, L501.2450, L500.4050 #### [facility] [address] [place], [address] Comprehensive Metabolic Prof ilon 05-31-2024 Albumin [Mass/Vol] 4.6 g/dL Normal 3.4-4.8 [facility] Comment on above: Performed By: #### L 100.0100, L501.2450, L500.4050 #### [facility] [address] [place], [address] Albumin/Globulin [Mass ratio] 2.0 {ratio} Normal 0.9-2.4 [facility] Comment on above: Performed By: #### L 100.0100, L501.2450, L500.4050 #### [facility] [address] [place], [address] ALK PHOS 70 U/L Normal 35-104 [facility] Comment on above: Performed By: #### L 100.0100, L501.2450, L500.4050 #### [facility] [address] [place], [address] ALT [Catalytic activity/Vol] 15 U/L Normal <=34 [facility] Comment on above: Performed By: #### L 100.0100, L501.2450, L500.4050 #### [facility] [address] [place], [address] AST [Catalytic activity/Vol] 21 U/L Normal <=31 [facility] Comment on above: Performed By: #### L 100.0100, L501.2450, L500.4050 #### [facility] [address] [place], [address] Bilirubin [Mass/Vol] 0.94 mg/dL Normal 0.00-1.30 [facility] Comment on above: Performed By: #### L 100.0100, L501.2450, L500.4050 #### [facility] [address] [place], [address] BUN/CRE 16.8 RATIO Normal 10-20 [facility] Comment on above: Performed By: #### L 100.0100, L501.2450, L500.4050 #### [facility] [address] [place], [address] Calcium [Mass/Vol] 9.5 mg/dL Normal 7.6-11.0 [facility] Comment on above: Performed By: #### L 100.0100, L501.2450, L500.4050 #### [facility] [address] [place], [address] Chloride [Moles/Vol] 103 mmol/L Normal 98-108 [facility] Comment on above: Performed By: #### L 100.0100, L501.2450, L500.4050 #### [facility] [address] [place], [address] CO2 [Moles/Vol] 22.3 mmol/L Normal 21.0-32.0 [facility] Comment on above: Performed By: #### L 100.0100, L501.2450, L500.4050 #### [facility] [address] [place], [address] GAP 15 Normal 5-15 [facility] Comment on above: Performed By: #### L 100.0100, L501.2450, L500.4050 #### [facility] [address] [place], [address] GFR/1.73 sq M.predicted among non-blacks MDRD (S/P/Bld) [Vol rate/Area] 67 mL/min/{1.73_m2} Normal >60 [facility] Comment on above: Result Comment: mL/m in/1.73m2 CKD-EPI Creatinine Equation (2020) Performed By: #### L 100.0100, L501.2450, L500.4050 #### [facility] [address] [place], [address] Globulin (S) [Mass/Vol] 2.3 g/dL Normal 2.2-4.2 [facility] Comment on above: Performed By: #### L 100.0100, L501.2450, L500.4050 #### [facility] [address] [place], [address] Potassium [Moles/Vol] 4.1 mmol/L Normal 3.3-5.1 [facility] Comment on above: Performed By: #### L 100.0100, L501.2450, L500.4050 #### [facility] [address] [place], [address] Sodium [Moles/Vol] 140 mmol/L Normal 133-145 [facility] Comment on above: Performed By: #### L 100.0100, L501.2450, L500.4050 #### [facility] [address] [place], [address] T PROT 6.9 g/dL Normal 5.9-8.4 [facility] Comment on above: Performed By: #### L 100.0100, L501.2450, L500.4050 #### [facility] [address] [place], [address] Creatinine [Mass/Vol] 0.85 mg/dL Normal 0.70-1.20 [facility] Comment on above: Performed By: #### L 100.0100, L501.2450, L500.4050 #### [facility] [address] [place], [address] Glucose [Mass/Vol] 97 mg/dL Normal 70-99 [facility] Comment on above: Performed By: #### L 100.0100, L501.2450, L500.4050 #### [facility] [address] [place], [address] Urea nitrogen [Mass/Vol] 14 mg/dL Normal 4-19 [facility] Comment on above: Performed By: #### L 100.0100, L501.2450, L500.4050 #### [facility] [address] [place], [address] Gastroenterology Visit Repor ton 05-31-[address] [facility] [address] [place] [address] OFFICE VISIT Date of Service: 05/31/24 MR#: [id number] Acct: [id number] Name: ALISON SANTACRUZ Lulu Rep #: [id number] : 1940 Provider: LIZZETTE Edwards Age/Sex: 83/F Location: [email or web address] Status: Signed Intake Vital Signs 04/16/24 13:36 Height 5 ft 6 in Intake Visit Reasons: Ongoing issues Chief Complaint: abdominal pain Allergies Iodinated Contrast Media Allergy (Verified 04/16/24 13:29) Rash atorvastatin (From Lipitor) Adverse Reaction (Verified 04/16/24 13:29) Upset Stomach bupropion (From Wellbutrin) Adverse Reaction (Verified 04/16/24 13:29) Other paroxetine (From Paxil) Adverse Reaction (Verified 04/16/24 13:29) Bahama poorly rosuvastatin (From Crestor) Adverse Reaction (Verified [...] gallbladder. Continues taking pantoprazole and dicyclomine daily. [facility] Medical History Arthritis Gastric reflux Wears hearing [...] first portion of the duodenum. Biopsied. OV 3.28.25; Pt continues with daily nausea, back pain, [...] for itchy (more content not included)... Normal [facility] Lipaseon 05-31-2024 Lipase [Catalytic activity/Vol] 26 U/L Normal 13-75 [facility] Comment on above: Result Comment: Yuko joseph note: LIPASE revised reference range effective 22. New Lipase methodology. Expected to produce lower values than the previous assay method. NEW Reference Range: 13 - 75 U/L Performed By: #### L 100.0100, L501.2450, L500.4050 #### [facility] [address] [place], [address] Stool Occult Blood iFOBon STOB Negative Normal [facility] Comment on above: Performed By: #### L 100.0100, L501.2450, L500.4050 #### [facility] [address] [place], [place], [address] Abd Inc Decub and/or Erecton 05-30-2024 Abd Inc Decub and/or Erect [facility] Imaging Services [address] [place] [address] Abd Inc Decub and/or Erect MR#: [id number] Acct: [id number] Name: ALISON SANTACRUZ Rep #: [id number] : 1940 F 83 From: Karel Mortensen MD PCP: Dr. Eddie Waggoner MD Status: REG CL Study: Abd Inc Decub and/or Erect Date of Exam: 05/30 Exam# [id number] Ordering Dr: Eddie Waggoner MD EXAM: XR [...] the colon consistent with constipation. [facility] CC: Dr. Eddie Waggoner MD Single End Sewer: Signed Normal [facility] Thyroid Stim Hormone (TSH)on 04-22-2024 TSH 2.120 uIU/mL Normal 0.358-3.740 [facility] Comment on above: Performed By: #### L 501.9520 #### [facility] [address] [place], [place], [address] EGD Reporton 04-16-2024 EGD Report [facility] Medical Records Department [address] [place] [address] EGD Report MR#: [id number] Acct: [id number] Name: ALISON SANTACRUZ Rep #: [id number] : 1940 83 From: Willie Shook DO PCP: Dr. Eddie Waggoner MD Status:REG [facility] Patient Name: Alison Santacruz Procedure Date: 04/16/2024 [...] pathology results. Procedure Code(s): --- Professional --- 06693, Esophagogastroduodenosc opy, flexible, transoral; with biopsy, single or multiple CPT copyright 2021 [employer]. All rights reserved. The codes documented in this report are preliminary and upon big data platform architect review may be revised to meet current compliance requirements. Willie Shook DO 04/16/2024 3:20:24 PM This report has been signed electronically. Number of Addenda: 0 Note Initiated On: 04/16/2024 2:52 PM 04/16/24 1520 Date Willie Shook DO Cosigner Signature: Date (if indicated) CC: Dr. Eddie Waggoner MD; Willie Shook DO Date Dictated: 04/16/24 7892 Date Transcribed: Single End Sewer: ES Signed [facility] H Pylori (initial)on 025 H Pylori (initial) --- Patient Age/Sex Location Account Attending Physician ALISON SANTACRUZ 83/F EN [id number] Willie Shook DO Specimen: [id number] Received: 04/17/24 Status: AKIRA Kelly Num: [id number] Spec Type: IMMUNO Subm Dr: Willie Shook DO PHYSICIAN INSTITUTION [place] [address] SPECIMEN INFORMATION: Tissue Source: B- Gastric cardia biopsy, C- Distal esophagus biopsy Clinical Info: Heartburn, GERD Specimen Number: [id number] B,C CPT code: 43278d5,18870 METHODOLOGY: Deparaffinized sections of prefer/formalin-fixed tissue or PAP/DQ stained slides are incubated with monoclonal/polyclonal antibodies/oligonucleot kevin probes. Localization is made via biotin free immunoperoxidase method. Appropriate controls are performed and reacted as expected. Results on target cell population are indicated in the following table: RESULTS: ANTIBODY / CLONE RESULT Block B H Pylori (polyclonal) negative Block C P53 (DO-7) negative (null pattern) Ki-67 (30-9) positive, low These tests were developed and their performance characteristics determined by [facility]. They may not have been cleared or approved by the U.S. Food and Drug Administration. The FDA has determined that such clearance or approval is not necessary. The above immunohistochemical/mariama Kwame markers are ordered and reviewed by the Pathologist. INTERPRETATION: B. Gastric cardia, biopsy: Negative for Helicobacter pylori organisms. C. Distal esophagus, biopsy: Negative for dysplasia. 04/19/2024 Signed (signature on file) Dr. Alejandro Rashid MD 04/19/24 1151 Normal [facility] Comment on above: Performed By: #### L 100.0100, L501.2450, L500.4050 #### [facility] [address] [facility] [place], [address] MR/POSTOP.[facility] 04-16-2024 MR/POSTOP.[facility] Medical Records Department [address] [place] [address] Anesthesia Postop Eval I 04/16/24 1518 MR#: [id number] Acct: [id number] Name: ALISON SANTACRUZ Rep #: [id number] : 1940 83 From: Jim Middleton PCP: Dr. Eddie Waggoner MD Status:REG SD Y Race: C Location: [place] [address] Anesthesia: Postop Eval I Current Vital Signs [...] Jim Gregg Signature: Date CC: Signed Normal [facility] MR/[id number] 04-16-2024 MR/POSTOPAN2 [facility] Medical Records Department [address] [place] [address] Anesthesia Postop Eval II 04/16/24 183 MR#: [id number] Acct: [id number] Name: ALISON SANTACRUZ Rep #: [id number] : 1940 83 From: Oliver Kapoor MD PCP: Dr. Eddie Waggoner MD Status:[facility] Y Race: C Location: EN Anesthesia Postop [...] Oliver Gregg Signature: Date CC: Signed Normal [facility] Special Stain Group Ion 04-06 Special Stain Group I ----- Patient Age/Sex Location Account Attending Physician ALISON SANTACRUZ 83/F EN [id number] Willie Shook DO Specimen: [id number] Received: 04/17/24 Status: AKIRA Kelly Num: [id number] Spec Type: EGD BIOPSY Jana Dr: iWllie Friend, DO HEADER OPERATION: EGD PRE-OP DIAGNOSIS: Heartburn, [...] Chronic inflammation. Negative for dysplasia. See comment. ARAEBLLA. 04/18/2024 COMMENT B. The results of immunohistochemistry for Helicobacter pylori will be reported separately ([id number]). C. Alcian blue/PAS stain with matched control is used in the evaluation of the specimen. Immunohistochemistry ([id number]) for P53 and Ki-67 will be performed, [...] Age/Sex Location Account Attending Physician ALISON SANTACRUZ / EN [id number] Willie Shook tissue that in aggregate measure 1 x [...] totally submitted in one cassette. 04/17/2024 TC:3 [facility]:[id number] Patient Age/Sex Location Account Attending Physician ALISON SANTACRUZ 83/F EN [id number] Willie Bouchra, DO Signed (signature on file) Dr. Alejandro Rashid MD 04/19/24 0934 Normal [facility] Comment on above: Performed By: #### P SSI ####[facility] [id number] [place], [place], [id number] /Monalisa 04-15-2024 /ESTHER [facility] Medical Records Department [address] [place] [address] PAT - Anesthesia 04/15/24 1032 MR#: [id number] Acct: [id number] Name: ALISON SANTACRUZ Rep #: [id number] : 1940 83 From: Casey Staley MD PCP: Dr. Eddie Waggoner MD Status:PRE [facility] Y Race: C Location: EN Pre-Assessment Diagnosis/Proposed Procedure Planned Operative Procedure(s): EGD Anesthesia History Anesthesia History - emergency room technician: Anesthesia History - emergency room technician Hx Hospitalization No 04/11/24 15:16 Any Problems [...] take am of surgery PONV PONV - emergency room technician: PONV - emergency room technician Female Yes 04/11/24 15:16 HX of Motion [...] 12/19/23 13:28 Respiratory Assessment Respiratory Assessment - emergency room technician: Respiratory Tract Infection Hx - emergency room technician Hx Respiratory Tract Infection No 04/11/24 15:16 STOP Sleep Apnea STOP Sleep Apnea - emergency room technician: STOP Sleep Apnea - emergency room technician Hx Hypertension Yes: CONTROLLED ON MEDS 04/11/24 [...] 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 Use History - emergency room technician: Tobacco Use History - emergency room technician Tobacco Use Smoking Status Never smoker 04/11/24 15:16 Hx Tobacco Use No 04/11/24 15:16 Years Smoking Packs Smoked per Day Smoking Cessation Date was within the last 15 years Hx Smoking Cessation Date Hx Smoking Cessation Counseling Hematologic Medial History Hematologic Hx - emergency room technician: 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 Normal [facility] CBC W/Diff, Automatedon 02-03 Absolute Lymph 1.41 X10 3/uL Normal 0.83-4.51 [facility] Comment on above: Performed By: #### L 3410.9992 #### [facility] [address] [place], [address] Absolute Neut 2.6 X10 3/uL Normal 2.0-7.7 [facility] Comment on above: Performed By: #### L 3410.9992 #### [facility] [address] [place], [address] Basophils/100 WBC (Bld) 1.0 % Normal 0-1 [facility] Comment on above: Performed By: #### L 3410.9992 #### [facility] [address] [place], [address] Eosinophils/100 WBC (Bld) 4.4 % Normal 0-5 [facility] Comment on above: Performed By: #### L 3410.9992 #### [facility] [address] [place], [address] Erythrocyte distribution width (RBC) [Ratio] 11.9 % Normal 11.6-14.6 [facility] Comment on above: Performed By: #### L 3410.9992 #### [facility] [address] [place], [address] Hematocrit (Bld) [Volume fraction] 38.2 % Normal 37-47 [facility] Comment on above: Performed By: #### L 3410.9992 #### [facility] [address] [place], [address] Hemoglobin (Bld) [Mass/Vol] 12.9 g/dL Normal 12.0-15.0 [facility] Comment on above: Performed By: #### L 3410.9992 #### [facility] [address] [place], [address] IG% 1.000 High 0.0-0.9 [facility] Comment on above: Result Comment: IG% - Immature Granulocytes (promyelocytes, myelocytes and metamyelocytes) > 1% indicates that a LEFT SHIFT is Present. Performed By: #### L 3410.9992 #### [facility] [address] [place], [address] Lymphocytes/100 WBC (Bld) 29.5 % Normal 19-41 [facility] Comment on above: Performed By: #### L 3410.9992 #### [facility] [address] [place], [address] MCH (RBC) [Entitic mass] 30.1 pg Normal 27.0-32.0 [facility] Comment on above: Performed By: #### L 3410.9992 #### [facility] [address] [place], [address] MCHC (RBC) [Mass/Vol] 33.8 g/dL Normal 32-36 [facility] Comment on above: Performed By: #### L 3410.9992 #### [facility] [address] [place], [address] MCV (RBC) [Entitic vol] 89.0 fL Normal 81-99 [facility] Comment on above: Performed By: #### L 3410.9992 #### [facility] [address] [place], [address] Monocytes/100 WBC (Bld) 8.8 % Normal 0-10 [facility] Comment on above: Performed By: #### L 3410.9992 #### [facility] [address] [place], [address] Neutrophils/100 WBC (Bld) 55.3 % Normal 47-70 [facility] Comment on above: Performed By: #### L 3410.9992 #### [facility] [address] [place], [address] Nucleated RBC (Bld) [#/Vol] 0 10*3/uL Normal 0-5 [facility] Comment on above: Performed By: #### L 3410.9992 #### [facility] [address] [place], [address] Platelet mean volume (Bld) [Entitic vol] 8.6 fL Normal 6.2-12.0 [facility] Comment on above: Performed By: #### L 3410.9992 #### [facility] [address] [place], [address] Platelets (Bld) [#/Vol] 193 10*3/uL Normal 150-450 [facility] Comment on above: Performed By: #### L 3410.9992 #### [facility] [address] [place], [address] RBC (Bld) [#/Vol] 4.29 10*6/uL Normal 4.2-5.4 [facility] Comment on above: Performed By: #### L 3410.9992 #### [facility] [address] [place], [address] RDW SD 38.3 fl Normal 35.1-43.9 [facility] Comment on above: Performed By: #### L 3410.9992 #### [facility] [address] [place], [address] WBC (Bld) [#/Vol] 4.8 10*3/uL Normal 4.4-11.0 [facility] Comment on above: Performed By: #### L 3410.9992 #### [facility] [address] [place], [address] Comprehensive Metabolic Prof [facility] 02-16-2024 Albumin [Mass/Vol] 3.9 g/dL Normal 3.2-5.0 [facility] Comment on above: Performed By: #### L 3410.9992 #### [facility] [address] [place], [address] Albumin/Globulin [Mass ratio] 1.3 {ratio} Normal 0.9-2.4 [facility] Comment on above: Performed By: #### L 3410.9992 #### [facility] [address] [place], [address] ALK P 63 U/L Normal 45-117 [facility] Comment on above: Performed By: #### L 3410.9992 #### [facility] [address] [place], [address] ALT [Catalytic activity/Vol] 23 U/L Normal 13-56 [facility] Comment on above: Performed By: #### L 3410.9992 #### [facility] [address] [place], [address] AST [Catalytic activity/Vol] 12 U/L Low 15-37 [facility] Comment on above: Performed By: #### L 3410.9992 #### [facility] [address] [place], [address] Bilirubin [Mass/Vol] 1.00 mg/dL Normal 0.20-1.00 [facility] Comment on above: Result Comment: For patients on eltrombopag therapy, use of Dimension [place] TBIL is not recommended. Performed By: #### L 3410.9992 #### [facility] [address] [place], [address] BUN/CRE 16.3 RATIO Normal 10-20 [facility] Comment on above: Performed By: #### L 3410.9992 #### [facility] [address] [place], [address] CA,Total 9.4 mg/dL Normal 8.5-10.1 [facility] Comment on above: Performed By: #### L 3410.9992 #### [facility] [address] [place], [address] Chloride [Moles/Vol] 103 mmol/L Normal 98-107 [facility] Comment on above: Performed By: #### L 3410.9992 #### [facility] [address] [place], [address] CO2 [Moles/Vol] 30.0 mmol/L Normal 21.0-32.0 [facility] Comment on above: Performed By: #### L 3410.9992 #### [facility] [address] [place], [address] Creatinine [Mass/Vol] 0.86 mg/dL Normal 0.55-1.02 [facility] Comment on above: Result Comment: The validity of the calculated GFR GFRAA in patients over 70 years has not been determined. Clinical correlation is essential. Performed By: #### L 3410.9992 #### [facility] [address] [place], [address] EST GFR - AA 81 mL/min Normal >60 [facility] Comment on above: Result Comment: Afri can [place] GFR Calc Performed By: #### L 3410.9992 #### [facility] [address] [place], [address] GAP 4 Low 5-15 [facility] Comment on above: Performed By: #### L 3410.9992 #### [facility] [address] [place], [address] GFR/1.73 sq M.predicted among non-blacks MDRD (S/P/Bld) [Vol rate/Area] 67 mL/min/{1.73_m2} Normal >60 [facility] Comment on above: Result Comment: Non- GFR Calc Performed By: #### L 3410.9992 #### [facility] [address] [place], [address] Globulin (S) [Mass/Vol] 2.9 g/dL Normal 2.2-4.2 [facility] Comment on above: Performed By: #### L 3410.9992 #### [facility] [address] [place], [address] Glucose [Mass/Vol] 94 mg/dL Normal 74-106 [facility] Comment on above: Performed By: #### L 3410.9992 #### [facility] [address] [place], [address] Potassium [Moles/Vol] 4.4 mmol/L Normal 3.5-5.1 [facility] Comment on above: Performed By: #### L 3410.9992 #### [facility] [address] [place], [address] Sodium [Moles/Vol] 137 mmol/L Normal 136-145 [facility] Comment on above: Performed By: #### L 3410.9992 #### [facility] [address] [place], [address] T PROT 6.8 g/dL Normal 6.4-8.2 [facility] Comment on above: Performed By: #### L 3410.9992 #### [facility] [address] [place], [address] Urea nitrogen [Mass/Vol] 14 mg/dL Normal 7-18 [facility] Comment on above: Performed By: #### L 3410.9992 #### [facility] [address] [place], [address] Gastroenterology Visit Repor ton 02-16-[address] [facility] [address] [place] [address] OFFICE VISIT Date of Service: 02/16/24 MR#: [id number] Acct: [id number] Name: SILVIA SANTACRUZBHAVIK Lawson Rep #: [id number] : 1940 Provider: LIZZETTE Edwards Age/Sex: 83/F Location[place] [facility] Status: Signed Intake Vital Signs 12/19/23 13:28 Height 5 ft 6 in Intake Visit Reasons: Diarrhea Chief Complaint: black tarry stools Allergies Iodinated Contrast Media Allergy (Verified 12/19/23 13:25) Rash atorvastatin (From Lipitor) Adverse Reaction (Verified 12/19/23 13:25) Upset Stomach bupropion (From Wellbutrin) Adverse Reaction (Verified 12/19/23 13:25) Other paroxetine (From Paxil) Adverse Reaction (Verified 12/19/23 13:25) Bahama poorly rosuvastatin (From Crestor) Adverse Reaction (Verified [...] BM. Reports poor appetite due to nausea. [facility] Medical History (Updated 02/16/24 @ 09:31 by [...] Appearance: average body habitus and well nourished [facility] Head: normal to inspection Ears: hearing grossly normal bilaterally Nose: external nose normal Eyes General: appearance normal, osmany (more content not included)... Normal [facility] Lipaseon 02-16-2024 Lipase [Catalytic activity/Vol] 37 U/L Normal 13-75 [facility] Comment on above: Result Comment: Yuko joseph note: LIPASE revised reference range effective 22. New Lipase methodology. Expected to produce lower values than the previous assay method. NEW Reference Range: 13 - 75 U/L Performed By: #### L 3410.9992 #### [facility] [address] [place], [address] Absolute lymphocyte countOrd ered By: Tila Bailey on 01-17-2023 Lymphocytes Auto (Unsp spec) [#/Vol] 0.50 10*3/uL 0.83-4.51 [facility] Basophil percentageOrdered B y: Tila Bailey on 01-17-2023 Creatinine [Mass/Vol] 1.0 mg/dL 0.55-1.02 [facility] Basophils/100 WBC (Bld) 0.3 % 0-1 [facility] Bilirubin [Mass/Vol] 0.70 mg/dL 0.20-1.00 [facility] Comment on above: For patients on eltr ombopag therapy, use of Dimension [place] TBIL is not recommended. Chloride [Moles/Vol] 105 mmol/L 98-107 [facility] Cholesterol [Mass/Vol] 264 mg/dL <200 [facility] Comment on above: <200 mg/dL Desirable 200-240 mg/dL Borderline >240 mg/dL High Risk Eosinophils/100 WBC (Bld) 2.5 % 0-5 [facility] Glucose [Mass/Vol] 150 mg/dL 74-106 [facility] Comment on above: Fasting Glucose resu lt greater than or equal to 126 mg/dL suggests DIABETES MELLITUS per A.D.A. criteria. Neutrophils (Bld) [#/Vol] 5.4 10*3/uL 2.0-7.7 [facility] Neutrophils/100 WBC (Bld) 84.7 % 47-70 [facility] Potassium [Moles/Vol] 4.1 mmol/L 3.5-5.1 [facility] Protein [Mass/Vol] 7.9 g/dL 6.4-8.2 [facility] Sodium [Moles/Vol] 139 mmol/L 136-145 [facility] Triglyceride [Mass/Vol] 60 mg/dL <199 [facility] Comment on above: The drugs N-Acetylcy steine and Metamizole may falsely depress this assay.Serum Triglycerides Reference Interval Normal <150 mg/dL Borderline high 150 - 199 mg/dL High 200 - 499 mg/dL Very High > or = 500 mg/dL WBC (Bld) [#/Vol] 6.4 10*3/uL 4.4-11.0 [facility] Blood erythrocytes count (nu mber/volume)Ordered By: Tila Bailey on 01-17-2023 RBC (Bld) [#/Vol] 4.36 10*6/uL 4.2-5.4 [facility] Blood hemoglobin measurement (mass/volume)Ordered By: Tila Bailey on 01-17-2023 Hemoglobin (Bld) [Mass/Vol] 12.7 g/dL 12.0-15.0 [facility] Blood lymphocytes/100 leukoc ytesOrdered By: Tila Bailey on 01-17-2023 Lymphocytes/100 WBC (Bld) 7.9 % 19-41 [facility] Blood manual differential co mment interpretation (narrative result)Ordered By: Tila Bailey on 01-17-2023 Manual differential comment Mehdi (Bld) [Interp] SCANNED [facility] Blood monocytes/100 leukocyt esOrdered By: Tila Bailey on 01-17-2023 Monocytes/100 WBC (Bld) 4.1 % 0-10 [facility] Blood platelet mean volumeOr dered By: Tila Bailey on 01-17-2023 Platelet mean volume (Bld) [Entitic vol] 8.7 fL 6.2-12.0 [facility] Determination of erythrocyte mean corpuscular volume (MCV)Ordered By: Tila Bailey on 01-17-2023 MCV (RBC) [Entitic vol] 89.0 fL 81-99 [facility] Hematocrit Auto (Bld) [Volum e fraction]Ordered By: Tila Bailey on 01-17-2023 Hematocrit (Bld) [Volume fraction] 38.8 % 37-47 [facility] - Chemistry and C hemistry - challengeOrdered By: Tila Bailey on 01-17-2023 GFR/1.73 sq M.predicted among non-blacks MDRD (S/P/Bld) [Vol rate/Area] 54.0000 mL/min/{1.73_m2} >60 [facility] ALP [Catalytic activity/Vol] 70 U/L 45-117 [facility] ALT [Catalytic activity/Vol] 27 U/L 13-56 [facility] CO2 [Moles/Vol] 27.0 mmol/L 21.0-32.0 [facility] Globulin (S) [Mass/Vol] 3.9 g/dL 2.2-4.2 [facility] Urea nitrogen/Creatinine [Mass ratio] 18.3 mg/mg 10-20 [facility] - Hematology and Cell countsOrdered By: Tila Bailey on 01-17-2023 Erythrocyte distribution width (RBC) [Entitic vol] 39.1 fL 35.1-43.9 [facility] Erythrocyte distribution width (RBC) [Ratio] 12.0 % 11.6-14.6 [facility] Immature granulocytes/100 WBC (Bld) 0.500 % 0.0-0.9 [facility] Comment on above: IG% - Immature Granu locytes (promyelocytes, myelocytes and metamyelocytes) > 1% indicates that a LEFT SHIFT is Present. MCH (RBC) [Entitic mass] 29.1 pg 27.0-32.0 [facility] Nucleated RBC/100 WBC (Bld) [Ratio] 0 % 0-5 [facility] MCHC Auto (RBC) [Mass/Vol]Or dered By: Tila Bailey on 01-17-2023 MCHC (RBC) [Mass/Vol] 32.7 g/dL 32-36 [facility] No Panel InformationOrdered By: Tila Bailey on 01-17-2023 Estimated GFR (MDRD) Amer 74 mL/min >60 [facility] Comment on above: GFR Calc Estimated GFR (MDRD) Non-Af Amer 61 mL/min >60 [facility] Comment on above: Non- GFR Calc Thyroid Stimulating Hormone (TSH) 0.86 uIU/mL 0.358-3.74 [facility] Vitamin D 25-Hydroxy 102.0 ng/mL [facility] Comment on above: Vitamin D 25(OH) Sta [...] 01-17-2023 Platelets (Bld) [#/Vol] 207 10*3/uL 150-450 [facility] Serum or plasma albumin jose martin urement (mass/volume)Ordered By: Tila Bailey on 01-17-2023 Albumin [Mass/Vol] 4.0 g/dL 3.2-5.0 [facility] Serum or plasma albumin/glob ulin mass ratioOrdered By: Tila Bailey on 01-17-2023 Albumin/Globulin [Mass ratio] 1.0 {ratio} 0.9-2.4 [facility] Serum or plasma calcium jose martin urement (mass/volume)Ordered By: Tila Bailey on 01-17-2023 Calcium [Mass/Vol] 9.3 mg/dL 8.5-10.1 [facility] Serum or plasma cholesterol in HDL measurement (mass/volume)Ordered By: Tila Bailey on 01-17-2023 Cholesterol in HDL [Mass/Vol] 81 mg/dL >40 [facility] Comment on above: The drugs N-Acetylcy steine and Metamizole may falsely depress this assay. Reference Range HDL <40 mg/dL Low HDL Cholesterol HDL >or= 60 mg/dL High HDL Cholesterol Serum or plasma cholesterol in VLDL measurement (mass/volume)Ordered By: Tila Bailey on 01-17-2023 Cholesterol in VLDL [Mass/Vol] 12 mg/dL 5-40 [facility] Serum or plasma creatinine m easurement (mass/volume)Ordered By: Tila Bailey on 01-17-2023 Creatinine [Mass/Vol] 0.93 mg/dL 0.55-1.02 [facility] Comment on above: The validity of the calculated GFR & GFRAA in patients over 70 years has not been determined. Clinical correlation is essential. Serum or plasma low density lipoprotein (LDL) cholesterol measurement (mass/volume)Ordered By: Tila Bailey on 01-17-2023 Cholesterol in LDL [Mass/Vol] 171 mg/dL 0-130 [facility] Serum or plasma urea nitroge n measurement (mass/volume)Ordered By: Tila Bailey on 01-17-2023 Urea nitrogen [Mass/Vol] 17 mg/dL 7-18 [facility] Thin prep Papanicolaou smear with manual screeningOrdered By: Tila Bailey on 01-17-2023 Thin prep Papanicolaou smear with manual screening 16 U/L 15-37 [facility] Thin prep Papanicolaou smear with manual screening 7 5-15 [facility] Laboratory - Chemistry and C hemistry - challengeOrdered By: Roxanna Lemus on 09-15-2022 Free T4 [Mass/Vol] 1.19 ng/dL 0.76-1.46 [facility] No Panel InformationOrdered By: Roxanna Lemus on 09-15-2022 Thyroid Stimulating Hormone (TSH) 2.38 uIU/mL 0.358-3.74 [facility] Absolute lymphocyte countOrd ered By: Vernon Garrett on 07-19-2022 Lymphocytes Auto (Unsp spec) [#/Vol] 1.39 10*3/uL 0.83-4.51 [facility] Basophil percentageOrdered B y: Vernon Garrett on 07-19-2022 Basophils/100 WBC (Bld) 0.6 % 0-1 [facility] Bilirubin [Mass/Vol] 0.50 mg/dL 0.20-1.00 [facility] Comment on above: For patients on eltr ombopag therapy, use of Dimension [place] TBIL is not recommended. Chloride [Moles/Vol] 106 mmol/L 98-107 [facility] Eosinophils/100 WBC (Bld) 8.1 % 0-5 [facility] Glucose [Mass/Vol] 119 mg/dL 74-106 [facility] Comment on above: Fasting Glucose resu lt from 100 to 125 mg/dL suggests IMPAIRED HOMEOSTASIS per A.D.A. criteria. LDH [Catalytic activity/Vol] 188 U/L 84-246 [facility] Neutrophils (Bld) [#/Vol] 2.6 10*3/uL 2.0-7.7 [facility] Neutrophils/100 WBC (Bld) 53.9 % 47-70 [facility] Potassium [Moles/Vol] 4.1 mmol/L 3.5-5.1 [facility] Protein [Mass/Vol] 7.5 g/dL 6.4-8.2 [facility] Sodium [Moles/Vol] 139 mmol/L 136-145 [facility] WBC (Bld) [#/Vol] 4.8 10*3/uL 4.4-11.0 [facility] Blood erythrocytes count (nu mber/volume)Ordered By: Vernon Garrett on 07-19-2022 RBC (Bld) [#/Vol] 4.23 10*6/uL 4.2-5.4 [facility] Blood hemoglobin measurement (mass/volume)Ordered By: Vernon Garrett on 07-19-2022 Hemoglobin (Bld) [Mass/Vol] 12.7 g/dL 12.0-15.0 [facility] Blood lymphocytes/100 leukoc ytesOrdered By: Vernon Garrett on 07-19-2022 Lymphocytes/100 WBC (Bld) 28.9 % 19-41 [facility] Blood monocytes/100 leukocyt esOrdered By: Vernon Garrett on 07-19-2022 Monocytes/100 WBC (Bld) 8.3 % 0-10 [facility] Blood platelet mean volumeOr dered By: Vernon Garrett on 07-19-2022 Platelet mean volume (Bld) [Entitic vol] 8.4 fL 6.2-12.0 [facility] Determination of erythrocyte mean corpuscular volume (MCV)Ordered By: Vernon Garrett on 07-19-2022 MCV (RBC) [Entitic vol] 89.6 fL 81-99 [facility] Erythrocyte sedimentation ra teOrdered By: Vernon Garrett on 07-19-2022 ESR (Bld) [Velocity] 12 mm/h 0-30 [facility] Hematocrit Auto (Bld) [Volum e fraction]Ordered By: Vernon Garrett on 07-19-2022 Hematocrit (Bld) [Volume fraction] 37.9 % 37-47 [facility] Hemoglobin in reticulocytes (mass per reticulocyte)Ordered By: Vernon Garrett on 07-19-2022 Hemoglobin (Reticulocytes) [Entitic mass] 32.7 pg 30-35 [facility] Iron measurement (mass/mass) Ordered By: Vernon Garrett on 07-19-2022 Iron (Unsp spec) [Mass/Mass] 55 ug/dL 50-170 [facility] Laboratory - Chemistry and C hemistry - challengeOrdered By: Vernon Garrett on 07-19-2022 ALP [Catalytic activity/Vol] 106 U/L 45-117 [facility] ALT [Catalytic activity/Vol] 30 U/L 13-56 [facility] CO2 [Moles/Vol] 27.0 mmol/L 21.0-32.0 [facility] Cobalamin (Vitamin B12) [Mass/Vol] 428 pg/mL 211-911 [facility] Globulin (S) [Mass/Vol] 3.6 g/dL 2.2-4.2 [facility] Urea nitrogen/Creatinine [Mass ratio] 21.3 mg/mg 10-20 [facility] Laboratory - Hematology and Cell countsOrdered By: Vernon Tami on 07-19-2022 Erythrocyte distribution width (RBC) [Entitic vol] 41.0 fL 35.1-43.9 [facility] Erythrocyte distribution width (RBC) [Ratio] 12.4 % 11.6-14.6 [facility] Immature granulocytes/100 WBC (Bld) 0.200 % 0.0-0.9 [facility] Comment on above: IG% - Immature Granu locytes (promyelocytes, myelocytes and metamyelocytes) > 1% indicates that a LEFT SHIFT is Present. MCH (RBC) [Entitic mass] 30.0 pg 27.0-32.0 [facility] Nucleated RBC/100 WBC (Bld) [Ratio] 0 % 0-5 [facility] MCHC Auto (RBC) [Mass/Vol]Or dered By: Vernon Garrett on 07-19-2022 MCHC (RBC) [Mass/Vol] 33.5 g/dL 32-36 [facility] No Panel InformationOrdered By: Vernon aGrrett on 07-19-2022 Estimated GFR (MDRD) Amer 78 mL/min >60 [facility] Comment on above: GFR Calc Estimated GFR (MDRD) Non-Af Amer 64 mL/min >60 [facility] Comment on above: Non- GFR Calc Immature Reticulocyte Fraction 5.80 % 3.00-15.90 [facility] Reticulocyte Count 1.11 % 0.5-1.5 [facility] Total Iron Binding Capacity 319 ug/dL 250-450 [facility] Platelets bldOrdered By: David Garrett on 07-19-2022 Platelets (Bld) [#/Vol] 182 10*3/uL 150-450 [facility] Serum or plasma C reactive p rotein measurement (mass/volume)Ordered By: Vernon Garrett on 07-19-2022 CRP [Mass/Vol] mg/L 0.0-3.0 [facility] Comment on above: C-Reactive Protein ( CRP) provides useful information for thediagnosis, therapy and monitoring of inflammatory processesand associated diseases. For the evaluation of Relative Riskfor Cardiovascular Disease, a High Sensitivity CRP (HSCRP)should be ordered. Serum or plasma albumin jose martin urement (mass/volume)Ordered By: Vernon Garrett on 07-19-2022 Albumin [Mass/Vol] 3.9 g/dL 3.2-5.0 [facility] Serum or plasma albumin/glob ulin mass ratioOrdered By: Vernon Garrett on 07-19-2022 Albumin/Globulin [Mass ratio] 1.1 {ratio} 0.9-2.4 [facility] Serum or plasma calcium jose martin urement (mass/volume)Ordered By: Vernon Garrett on 07-19-2022 Calcium [Mass/Vol] 9.1 mg/dL 8.5-10.1 [facility] Serum or plasma creatinine m easurement (mass/volume)Ordered By: Vernon Garrett on 07-19-2022 Creatinine [Mass/Vol] 0.89 mg/dL 0.55-1.02 [facility] Comment on above: The validity of the calculated GFR & GFRAA in patients over 70 years has not been determined. Clinical correlation is essential. Serum or plasma ferritin manuela surement (mass/volume)Ordered By: Vernon Garrett on 07-19-2022 Ferritin [Mass/Vol] 55 ng/mL 8-252 [facility] Serum or plasma folate measu rement (mass/volume)Ordered By: Vernon Garrett on 07-19-2022 Folate [Mass/Vol] 49.60 ng/mL 3.1-55.4 [facility] Serum or plasma iron saturat ion measurement (mass fraction)Ordered By: Vernon Garrett on 07-19-2022 Iron saturation [Mass fraction] 17.2 % 15.0-55.0 [facility] Serum or plasma urea nitroge n measurement (mass/volume)Ordered By: Vernon Garrett on 07-19-2022 Urea nitrogen [Mass/Vol] 19 mg/dL 7-18 [facility] Thin prep Papanicolaou smear with manual screeningOrdered By: Vernon Garrett on 07-19-2022 Thin prep Papanicolaou smear with manual screening 20 U/L 15-37 [facility] Thin prep Papanicolaou smear with manual screening 6 5-15 [facility] Absolute lymphocyte countOrd ered By: Roxanna Lemus on 07-05-2022 Lymphocytes Auto (Unsp spec) [#/Vol] 1.06 10*3/uL 0.83-4.51 [facility] Basophil percentageOrdered B y: Roxanna Lemus on 07-05-2022 Basophils/100 WBC (Bld) 0.7 % 0-1 [facility] Eosinophils/100 WBC (Bld) 9.7 % 0-5 [facility] Neutrophils (Bld) [#/Vol] 1.2 10*3/uL 2.0-7.7 [facility] Neutrophils/100 WBC (Bld) 41.5 % 47-70 [facility] WBC (Bld) [#/Vol] 2.8 10*3/uL 4.4-11.0 [facility] Blood erythrocytes count (nu mber/volume)Ordered By: Roxanna Lemus on 07-05-2022 RBC (Bld) [#/Vol] 4.23 10*6/uL 4.2-5.4 [facility] Blood hemoglobin measurement (mass/volume)Ordered By: Roxanna Lemus on 07-05-2022 Hemoglobin (Bld) [Mass/Vol] 12.6 g/dL 12.0-15.0 [facility] Blood lymphocytes/100 leukoc ytesOrdered By: Roxanna Lemus on 07-05-2022 Lymphocytes/100 WBC (Bld) 38.0 % 19-41 [facility] Blood monocytes/100 leukocyt esOrdered By: Roxanna Lemus on 07-05-2022 Monocytes/100 WBC (Bld) 9.7 % 0-10 [facility] Blood platelet mean volumeOr dered By: Roxanna Lemus on 07-05-2022 Platelet mean volume (Bld) [Entitic vol] 8.9 fL 6.2-12.0 [facility] Determination of erythrocyte mean corpuscular volume (MCV)Ordered By: Roxanna Lemus on 07-05-2022 MCV (RBC) [Entitic vol] 90.5 fL 81-99 [facility] Hematocrit Auto (Bld) [Volum e fraction]Ordered By: Roxanna Lemus on 07-05-2022 Hematocrit (Bld) [Volume fraction] 38.3 % 37-47 [facility] Laboratory - Hematology and Cell countsOrdered By: Roxanna Lemus on 07-05-2022 Erythrocyte distribution width (RBC) [Entitic vol] 41.6 fL 35.1-43.9 [facility] Erythrocyte distribution width (RBC) [Ratio] 12.6 % 11.6-14.6 [facility] Immature granulocytes/100 WBC (Bld) 0.400 % 0.0-0.9 [facility] Comment on above: IG% - Immature Granu locytes (promyelocytes, myelocytes and metamyelocytes) > 1% indicates that a LEFT SHIFT is Present. MCH (RBC) [Entitic mass] 29.8 pg 27.0-32.0 [facility] Nucleated RBC/100 WBC (Bld) [Ratio] 0 % 0-5 [facility] MCHC Auto (RBC) [Mass/Vol]Or dered By: Roxanna Lemus on 07-05-2022 MCHC (RBC) [Mass/Vol] 32.9 g/dL 32-36 [facility] No Panel InformationOrdered By: Sandra Sheppard on 07-05-2022 Thyroid Stimulating Hormone (TSH) 4.94 uIU/mL 0.358-3.74 [facility] Platelets bldOrdered By: Abhijit Lemus on 07-05-2022 Platelets (Bld) [#/Vol] 198 10*3/uL 150-450 [facility] Absolute lymphocyte countOrd ered By: Roxanna Lemus on 06-07-2022 Lymphocytes Auto (Unsp spec) [#/Vol] 1.09 10*3/uL 0.83-4.51 [facility] Basophil percentageOrdered B y: Roxanna Lemus on 06-07-2022 Basophils/100 WBC (Bld) 1.1 % 0-1 [facility] Bilirubin [Mass/Vol] 1.10 mg/dL 0.20-1.00 [facility] Comment on above: For patients on eltr ombopag therapy, use of Dimension [place] TBIL is not recommended. Chloride [Moles/Vol] 107 mmol/L 98-107 [facility] Cholesterol [Mass/Vol] 252 mg/dL <200 [facility] Comment on above: <200 mg/dL Desirable 200-240 mg/dL Borderline >240 mg/dL High Risk Eosinophils/100 WBC (Bld) 10.7 % 0-5 [facility] Glucose [Mass/Vol] 94 mg/dL 74-106 [facility] Neutrophils (Bld) [#/Vol] 1.1 10*3/uL 2.0-7.7 [facility] Neutrophils/100 WBC (Bld) 39.6 % 47-70 [facility] Potassium [Moles/Vol] 3.9 mmol/L 3.5-5.1 [facility] Protein [Mass/Vol] 7.4 g/dL 6.4-8.2 [facility] Sodium [Moles/Vol] 139 mmol/L 136-145 [facility] Triglyceride [Mass/Vol] 94 mg/dL <199 [facility] Comment on above: The drugs N-Acetylcy steine and Metamizole may falsely depress this assay.Serum Triglycerides Reference Interval Normal <150 mg/dL Borderline high 150 - 199 mg/dL High 200 - 499 mg/dL Very High > or = 500 mg/dL WBC (Bld) [#/Vol] 2.7 10*3/uL 4.4-11.0 [facility] Blood erythrocytes count (nu mber/volume)Ordered By: Roxanna Lemus on 06-07-2022 RBC (Bld) [#/Vol] 4.13 10*6/uL 4.2-5.4 [facility] Blood hemoglobin measurement (mass/volume)Ordered By: Roxanna Lemus on 06-07-2022 Hemoglobin (Bld) [Mass/Vol] 12.1 g/dL 12.0-15.0 [facility] Blood lymphocytes/100 leukoc ytesOrdered By: Roxanna Lemus on 06-07-2022 Lymphocytes/100 WBC (Bld) 40.1 % 19-41 [facility] Blood monocytes/100 leukocyt esOrdered By: Roxanna Lemus on 06-07-2022 Monocytes/100 WBC (Bld) 8.1 % 0-10 [facility] Blood platelet mean volumeOr dered By: Roxanna Lemus on 06-07-2022 Platelet mean volume (Bld) [Entitic vol] 8.8 fL 6.2-12.0 [facility] Determination of erythrocyte mean corpuscular volume (MCV)Ordered By: Roxanna Lemus on 06-07-2022 MCV (RBC) [Entitic vol] 88.6 fL 81-99 [facility] Hematocrit Auto (Bld) [Volum e fraction]Ordered By: Roxanna Lemus on 06-07-2022 Hematocrit (Bld) [Volume fraction] 36.6 % 37-47 [facility] Laboratory - Chemistry and C hemistry - challengeOrdered By: Roxanna Lemus on 06-07-2022 ALP [Catalytic activity/Vol] 84 U/L 45-117 [facility] ALT [Catalytic activity/Vol] 26 U/L 13-56 [facility] CO2 [Moles/Vol] 27.0 mmol/L 21.0-32.0 [facility] Globulin (S) [Mass/Vol] 3.6 g/dL 2.2-4.2 [facility] Urea nitrogen/Creatinine [Mass ratio] 19.4 mg/mg 10-20 [facility] Laboratory - Hematology and Cell countsOrdered By: Roxanna Lemus on 06-07-2022 Erythrocyte distribution width (RBC) [Entitic vol] 41.2 fL 35.1-43.9 [facility] Erythrocyte distribution width (RBC) [Ratio] 12.8 % 11.6-14.6 [facility] Immature granulocytes/100 WBC (Bld) 0.400 % 0.0-0.9 [facility] Comment on above: IG% - Immature Granu locytes (promyelocytes, myelocytes and metamyelocytes) > 1% indicates that a LEFT SHIFT is Present. MCH (RBC) [Entitic mass] 29.3 pg 27.0-32.0 [facility] Nucleated RBC/100 WBC (Bld) [Ratio] 0 % 0-5 [facility] MCHC Auto (RBC) [Mass/Vol]Or dered By: Roxanna Lemus on 06-07-2022 MCHC (RBC) [Mass/Vol] 33.1 g/dL 32-36 [facility] No Panel InformationOrdered By: Roxanna Lemus on 06-07-2022 Estimated GFR (MDRD) Amer 79 mL/min >60 [facility] Comment on above: GFR Calc Estimated GFR (MDRD) Non-Af Amer 65 mL/min >60 [facility] Comment on above: Non- GFR Calc Thyroid Stimulating Hormone (TSH) 32.30 uIU/mL 0.358-3.74 [facility] Platelets bldOrdered By: Abhijit Lemus on 06-07-2022 Platelets (Bld) [#/Vol] 188 10*3/uL 150-450 [facility] Serum or plasma albumin jose martin urement (mass/volume)Ordered By: Roxanna Lemus on 06-07-2022 Albumin [Mass/Vol] 3.8 g/dL 3.2-5.0 [facility] Serum or plasma albumin/glob ulin mass ratioOrdered By: Roxanna Lemus on 06-07-2022 Albumin/Globulin [Mass ratio] 1.1 {ratio} 0.9-2.4 [facility] Serum or plasma calcium jose martin urement (mass/volume)Ordered By: Roxanna eLmus on 06-07-2022 Calcium [Mass/Vol] 8.9 mg/dL 8.5-10.1 [facility] Serum or plasma cholesterol in HDL measurement (mass/volume)Ordered By: Roxanna Lemus on 06-07-2022 Cholesterol in HDL [Mass/Vol] 66 mg/dL >40 [facility] Comment on above: The drugs N-Acetylcy steine and Metamizole may falsely depress this assay. Reference Range HDL <40 mg/dL Low HDL Cholesterol HDL >or= 60 mg/dL High HDL Cholesterol Serum or plasma cholesterol in VLDL measurement (mass/volume)Ordered By: Roxanna Lemus on 06-07-2022 Cholesterol in VLDL [Mass/Vol] 19 mg/dL 5-40 [facility] Serum or plasma creatinine m easurement (mass/volume)Ordered By: Roxanna Lemus on 06-07-2022 Creatinine [Mass/Vol] 0.88 mg/dL 0.55-1.02 [facility] Comment on above: The validity of the calculated GFR & GFRAA in patients over 70 years has not been determined. Clinical correlation is essential. Serum or plasma low density lipoprotein (LDL) cholesterol measurement (mass/volume)Ordered By: Roxanna Lemus on 06-07-2022 Cholesterol in LDL [Mass/Vol] 167 mg/dL 0-130 [facility] Serum or plasma urea nitroge n measurement (mass/volume)Ordered By: Roxanna Lemus on 06-07-2022 Urea nitrogen [Mass/Vol] 17 mg/dL 7-18 [facility] Thin prep Papanicolaou smear with manual screeningOrdered By: Roxanna Lemus on 06-07-2022 Thin prep Papanicolaou smear with manual screening 19 U/L 15-37 [facility] Thin prep Papanicolaou smear with manual screening 5 5-15 [facility] Thin prep Papanicolaou smear with manual screening 21.3 mg/L NO RANGE EST. [facility] Vital Signs Date Time Vital Sign Value Performing Clinician Facility 10-05-2024 14:26-0400 Body temperature 99.39 [degF] David Rocha MD Work Phone: [facility] 10-05-2024 14:26-040 Body weight 72.2 kg David Rocha MD Work Phone: [facility] 10-05-2024 14:26-0400 Diastolic blood pressure 78 mm[Hg] David Rocha MD Work Phone: [facility] 10-05-2024 [id number] Heart rate 85 /min David Rocha MD Work Phone: [facility] 10-05-2024 [id number] Respiratory rate 18 /min David Rocha MD Work Phone: [facility] 10-05-2024 [id number] SaO2% (BldA) [Mass fraction] 98 % David Rocha MD Work Phone: [facility] 10-05-2024 14:[id number] Systolic blood pressure 122 mm[Hg] David Rocha MD Work Phone: [facility] 07-25-2022 13:15-0400 Body height 165.1 cm DO Roxanna Allan Work Phone: [facility] 07-25-2022 13:14-0400 Body mass index (BMI) [Ratio] 26.8 kg/m2 DO Roxanna Allan Work Phone: [facility] 07-25-2022 13:14-0400 Body temperature 97.9 [degF] DO Roxanna Allan Work Phone: [facility] 07-25-2022 13:14-0400 Body weight 73.17 kg DO Roxanna Allan Work Phone: [facility] 07-25-2022 13:14-0400 Diastolic blood pressure 68 mm[Hg] DO Roxanna Allan Work Phone: [facility] 07-25-2022 13:14-0400 Heart rate 96 /min DO Roxanna Allan Work Phone: [facility] 07-25-2022 13:14-0400 Respiratory rate 16 /min DO Roxanna Allan Work Phone: [facility] 07-25-2022 13:14-0400 SaO2% (BldA) [Mass fraction] 96 % DO Roxanna Allan Work Phone: [facility] 07-25-2022 13:14-0400 Systolic blood pressure 112 mm[Hg] DO Roxanna Allan Work Phone: [facility] 07-19-2022 14:30-0400 Body mass index (BMI) [Ratio] 26.6 kg/m2 DO Roxannafelice Curtisnger Work Phone: [facility] 07-19-2022 14:30-0400 Body temperature 97.1 [degF] DO Roxannafelice Curtisnger Work Phone: [facility] 07-19-2022 14:30-0400 Body weight 72.77 kg DO Roxannafelice Curtisnger Work Phone: [facility] 07-19-2022 14:30-0400 Diastolic blood pressure 73 mm[Hg] DO Roxanna Curtisnger Work Phone: [facility] 07-19-2022 14:30-0400 Heart rate 96 /min DO Roxanna Curtisnger Work Phone: [facility] 07-19-2022 14:30-0400 Respiratory rate 16 /min DO Roxanna Curtisnger Work Phone: [facility] 07-19-2022 14:30-0400 SaO2% (BldA) [Mass fraction] 97 % DO Roxanna Curtisnger Work Phone: [facility] 07-19-2022 14:30-0400 Systolic blood pressure 118 mm[Hg] DO Roxanna Curtisnger Work Phone: [facility] Encounters Encounter Date Encounter Type Care Provider Facility Start: 12-03-2024 ambulatory Rudi Chi Rajan Facility:[facility] Start: 11-29-2024 End: 11-29-2024 ambulatory Rudi Chi [facility] Facility:[facility] Start: 11-28-2024 End: 11-28-2024 ambulatory Rudi Chi Rajan Facility:[facility] Start: 10-29-2024 End: 10-29-2024 ambulatory Rudi Chi Rajan Facility:[facility] Start: 10-25-2024 End: 10-25-2024 ambulatory Rudi Chi Rajan Facility:[facility] Start: 10-23-2024 End: 10-23-2024 ambulatory Rudi [facility] Rajan Facility:[facility] Start: 10-16-2024 End: 10-16-2024 ambulatory [facility] Chi Rajan Facility:[facility] Start: 10-14-2024 End: 10-14-2024 Emergency department patient visit Chalon Rosaline Facility:[facility] Start: 10-11-2024 End: 10-12-2024 ambulatory Chalon Rosaline Facility:[facility] Start: 10-11-2024 End: 10-11-2024 ambulatory Chalon Rosaline Facility:[facility] Start: 10-06-2024 End: 10-06-2024 Emergency department patient visit Chris Phillips Facility:[facility] Start: 10-05-2024 End: 10-05-2024 ambulatory DAVID ROCHA Facility:[facility] Start: 10-05-2024 End: 10-05-2024 Patient encounter procedure David Rocha MD Work Phone: [facility] Comment on above: Influenza-like illne ss (Primary Dx); Nausea Start: 10-04-2024 ambulatory Chalon Rosaline Facility:[facility] Start: 07-30-2024 End: 07-30-2024 ambulatory Chalon Rosaline Facility:[facility] Start: 06-20-2024 End: 06-20-2024 ambulatory Chalon Rosaline Facility:[facility] Start: 05-31-2024 End: 05-31-2024 ambulatory Chalon Rosaline Facility:[facility] Start: 05-31-2024 End: 05-31-2024 ambulatory Chalon Rosaline Facility:[facility] Start: 05-30-2024 End: 05-30-2024 ambulatory Chalon Rosaline Facility:[facility] Start: 05-17-2024 ambulatory Chalon Rosaline Facility:[facility] Start: 04-22-2024 End: 04-22-2024 ambulatory Chalon Rosaline Facility:[facility] Start: 04-16-2024 ambulatory Chalon Rosaline Facility:[facility] Start: 04-16-2024 End: 04-16-2024 ambulatory Chalon Rosaline Facility:[facility] Start: 02-16-2024 End: 02-16-2024 ambulatory Chalon Rosaline Facility:[facility] Start: 02-16-2024 End: 02-16-2024 ambulatory Chalon Rosaline Facility:[facility] Start: 01-17-2023 End: 01-17-2023 ambulatory [facility] Work Phone: Start: 01-17-2023 End: 01-17-2023 Patient encounter procedure [facility] Work Phone: Start: 09-15-2022 End: 09-15-2022 ambulatory DO Roxanna Lemus Work Phone: [facility] Work Phone: Start: 09-15-2022 End: 09-15-2022 Patient encounter procedure DO Roxanna Lemus Work Phone: [facility] Work Phone: Start: 07-25-2022 End: 07-25-2022 Patient encounter procedure DO Roxanna Lemus Work Phone: [facility] Work Phone: Start: 07-19-2022 Registered Recurring DO Mavis Lemus Work Phone: [facility] Start: 07-19-2022 End: 07-19-2022 Patient encounter procedure DO Roxanna Lemus Work Phone: [facility] Work Phone: Start: 07-14-2022 Non-patient / Non-visit DO Abhijit Lemus Work Phone: [facility] Start: 07-05-2022 End: 07-05-2022 ambulatory [facility] Work Phone: Start: 07-05-2022 End: 07-05-2022 Patient encounter [facility] Start: 06-21-2022 End: 06-21-2022 ambulatory [facility] Work Phone: Start: 06-21-2022 End: 06-21-2022 Patient encounter procedure [facility] Start: 06-07-2022 End: 06-07-2022 [facility] [facility] Start: 06-29-2021 End: 06-29-2021 Patient encounter procedure [facility] [place] Procedures Date Procedure Procedure Detail Performing Clinician Start: 01-17-2023 Computed tomography of abdomen and pelvis with contrast Start: 06-21-2022 Dual energy X-ray absorptiometry Start: 06-29-2021 Radiography of ankle Plan of Treatment Date Care Activity Detail Author Start: 11-27-2024 Urine microalbumin profile DTaP,Tdap,Td Vaccine (2 - Td or Tdap) [facility] Start: 11-04-2024 Influenza vaccination Influenza Vacc ine (#1) [facility] Start: 03-06-2024 Advance Directive Discussion Advance Directive Discussion [facility] Start: 02-09-2022 Shingrix Vaccine (2 of 2) Salguero grix Vaccine (2 of 2) [facility] Start: 07-28-2003 Screening for osteoporosis Bone Density Screening [facility] Start: 07-28-1983 Diabetes Screening Diabetes Screenin g [facility] Start: 1958 Anxiety Screening Anxiety Screening [facility] Start: 1958 Depression Screening Depression Scre ening [facility] CBC W Auto Different ial panel - Blood [facility] Ferritin [Mass/volum e] in Serum or Plasma [facility] Folate [Mass/volume] in Serum or Plasma [facility] Iron and Iron bindin g capacity panel - Serum or Plasma [facility] Lactate dehydrogenas e measurement [facility] Vitamin B12 measurement [facility] Immunizations Immunization Date Immunization Notes Care Provider Marilia stephenson 11-28-2023 influenza virus vaccine, unspecified formulation David Rohca MD Work Phone: [facility] 05-08-2020 Covid (Moderna) [facility] 04-10-2020 Covid (Moderna) [facility] 11-05-2015 Influenza virus vaccine [facility] Payers Date Payer Category Payer Private Health Insurance [facility] [id number] 2024 Self-pay [id number] 2024 Unknown [id number] 2003 Medicare [id number] Unknown [id number] 2..1.188971.3.579.2 .462 Unknown [id number] 2..1.079943.3.579.2 .462 Unknown [id number] 2..1.454548.3.579.2 .462 Unknown [id number] 2.0.1.482786.3.579.2 .462 Unknown [id number] 2.0.1.973545.3.579.2 .462 Unknown [id number] 2.0.1.280146.3.579.2 .462 Unknown [id number] 2.840.1.828809.3.579.2 .462 Unknown [id number] 2.0.1.802434.3.579.2 .462 Unknown [id number] 2.16.840.1.493982.3.579.2 .462 Unknown [id number] 2.16.840.1.907696.3.579.2 .462 Unknown [id number] 2.16.840.1.489408.3.579.2 .462 Unknown [id number] 2.16.840.1.738883.3.579.2 .462 Unknown [id number] 2.16.840.1.761412.3.579.2 .462 Unknown [id number] 2.16.840.1.117030.3.579.2 .462 Unknown [id number] 2.16.840.1.118004.3.579.2 .462 Unknown [id number] 2.16.840.1.103013.3.579.2 .462 Unknown [id number] 2.16.840.1.194975.3.579.2 .462 Unknown [id number] 2.16.840.1.604304.3.579.2 .462 Unknown [id number] 2.16.840.1.416953.3.579.2 .462 Unknown [id number] 2.16.840.1.725701.3.579.2 .462 Unknown [id number] 2.16.840.1.709351.3.579.2 .462 Unknown [id number] 2.16840.1.379463.3.579.2 .462 Unknown [id number] 2.16840.1.792600.3.579.2 .462 Unknown [id number] 2.16840.1.542561.3.579.2 .462 Social History Date Type Detail Facility Start: 07-04-2016 End: 07-19-2022 Tobacco smoking status NHIS Unknown if ever smoked [facility] Start: 1940 Sex Assigned At Female [facility] Start: 1940 Sex assigned at Not on file [facility] Gender identity Not on file [facility] in Progress note 10-05-2024 Note Date & Type Note Facility 10-05-2024 Note HNO ID: [id number] Author: DAVID ROCHA MD Service: ? Author [...] for the following reason(s): Benign exam Procedures [facility] History of Present illness Narrative 10-05-2024 [...] Benign exam Procedures documented in this encounter [facility] Clinical Note 04-16-2024 Note Date & Type Note Facility 04-16-2024 Note [facility] Medical Records Department [address] [place] [address] History Physical Exam 04/16/24 1511 MR#: [id number] Acct: [id number] Name: ALISON SANTACRUZ Rep #: [id number] : 1940 83 From: Willie Friend DO PCP: Dr. Eddie Waggoner MD Status:[facility] [facility]: [facility] HPI - General General Date of Admission: 04/16/24 Date of Service: 04/16/24 Chief Complaint: abdominal pain HPI Narrative ALISON SANTACRUZ, is a 83 F who presents for endoscopic evaluation of abdominal pain and black stools Chief Complaint: black tarry stools [facility] established 11.26.24 w/ constipation and complaints of hemorrhoids. Takes [...] stop this. She feels weak and fatigued. [facility] Medical History Arthritis Gastric reflux Wears hearing [...] DAILY 07/14/22 12/15/23 Hi story glucosamine 750 ie-[id number]-gav 1 tab PO DAILY 07/14/22 04/15/24 History [...] Verified 04/16/24 13:29 paroxetine (From Paxil) AdvReac [place] poorly Verified 04/16/24 13:29 rosuvastatin (From Crestor) [...] rectal bleeding, tenes (more content not included)... [facility] Evaluation note Note Date & Type Note Facility Evaluation note No assessment information availa ble [facility] Work Phone: Evaluation note Note Date & Type Note Facility Evaluation note Diagnosis Onset Date Leukopenia resolved Leukopenia resolved [facility] Work Phone: Evaluation note Note Date & Type Note Facility Evaluation note Diagnosis Influenza-like illness- Primary Influenza with other respiratory manifestations Nausea Nausea alone documented in this encounter [facility] Chief Complaint and Reason for Visit Chief Complaint RIGHT ANKLE Chief Complaint OSTEO Chief Complaint OSTEO Amb Documentation NEW PT - LEUKOPENIA lab 1WK REVIEW LABS E ORDER Reason for Visit Leukopenia Leukopenia Chief Complaint RLQ ABD PAIN/ ADD LA BWORK FOR @[facility] Advance Directives No Advanced Directives Records Found Advance Directive Response Recorded Date/ Time Living Will Yes July 20, 2016 1 0:50am Power of Assistant Finance Manager Yes July 20, 2016 10:50am Advance Directive Response Recorded Date/ Time Living Will Yes July 20, 2016 9 :50am Power of Assistant Finance Manager Yes July 20, 2016 9:50am Family [...] Joseph MD Family Provider Active Roxanna Lemus , Primary Care Provider Active Team Status: Inactive Member Role Status Dates Roxanna Lemus , Primary Care Provi oscar, Attending Provider, Referring [...] , DO Primary Care Provider Active Radha Vaughanler Attending Provider Active Team Status: Active Member Role Status Dates Roxanna Hemphill Allan , DO Primary Care Provider Active Dr. [...] or prosecute any alcohol or drug abuse patient.[facility] Reason for Visit (unrecogniz ed section and content) Reason Comments Flu Like Symptoms X 3 days-diarrhea, s tomach hurts, nausea, hot and feels dizzy INFORMATION SOURCE (unrecogn ized section and content) DATE CREATED AUTHOR 10/07/2024 [facility] DATE CREATED AUTHOR AUTHOR'S ORGANIZ ATION 12/29/2024 [facility] FOR RECORDS PERTAINING TO PATIENTS WHO [...] BE BASED ON THE PRIMARY CLINICAL RECORDS. [employer] [facility]. provides no warranty or guarantee of the accuracy or completeness of information in this document.
== END | disposition home or self-care (01) ==
LOC: CT 16:20
PROVIDERS: PCP Family Medicine Geriatric Medicine; Referring Provider Family Medicine Geriatric Medicine; Visit Provider Family Medicine Geriatric Medicine
DX: R42 Dizziness and giddiness (principal); R27.0 Ataxia, unspecified
CPT/HCPCS: 70450

== ENCOUNTER → 2025-01-23 | Outpatient (CLI) | payer MEDICARE, OTHER, SELFPAY ==
[2025-01-23 17:58] LABS: Hematocrit 37.2 % (37-47); Hemoglobin 12.5 g/dL (12.0-15.0); Immature Granulocytes Count 0.030 X10^3/uL (0.0-0.0); Mean Corp Hgb Conc 33.6 g/dL (32-36); Mean Corpuscular Volume 89.9 fL (81-99); Mean Platelet Vol. 8.6 fl (6.2-12.0); NRBC Flagged by Analyzer 0 % (0-5); Platelet Count 164 K/mm3 (150-450); RBC Distribution Width CV 12.6 % (11.6-14.6); RBC Distribution Width SD 41.5 fl (35.1-43.9); Red Blood Count 4.14 M/mm3 (4.2-5.4); White Blood Count 5.2 K/mm3 (4.4-11.0)
[2025-01-23 19:18] LABS: AST(SGOT) 24 U/L (<=31); Alanine Aminotransfer ALT/SGPT 22 U/L (<=34); Albumin, Serum 4.5 g/dL (3.4-4.8); Alkaline Phosphatase 73 U/L (35-104); Anion Gap 10 (5-15); BUN 10 mg/dL (4-19); BUN/Creat Ratio 13.4 RATIO (10-20); Calcium,Total 9.1 mg/dL (7.6-11.0); Carbon Dioxide 26.0 mmol/L (21.0-32.0); Chloride 101 mmol/L (98-108); Globulin 2.6 g/dL (2.2-4.2); Glucose 87 mg/dL (70-99); Potassium 3.7 mmol/L (3.3-5.1)
[2025-01-24 01:42] LABS: Xtra Tube Kwok EXTRA TUBE
== END | disposition home or self-care (01) ==
LOC: POLAB3 17:41
PROVIDERS: PCP Family Medicine Geriatric Medicine; Visit Provider Family Medicine Geriatric Medicine
DX: I10 Essential (primary) hypertension (principal); E03.9 Hypothyroidism, unspecified
CPT/HCPCS: 36415; 80053; 84443; 85025

== ENCOUNTER → 2025-02-03 | Outpatient (CLI) | payer MEDICARE, OTHER, SELFPAY ==
--- OUTSIDE RECORDS SUMMARY | 2025-02-03 12:14 | XMS RPT_ITS | CCD ---
Author Organization [facility] Care Team Providers Care Black Powder Glazing Operator Name Role Phone DO Roxanna Lemus Primary Care Provider [phone] Radha Ascencio Attending Provider UnavailDO Roxanna Holguin Referring Provider Dr. Vernon Garrett Attending Provider [phone] Unavailable Primary Care Provider UnavailDAVID Griffin Attending Unavailable Rosaline, Chalon Attending Unavailable Rosaline, Chalon Primary Care Unavailable Rosaline, Chalon Referring Unavailable Rosaline, Chalon Primary Care Unavailable Rajwinder Luis Attending Unavailable Toby, Rajwinder Referring Unavailable Chris Phillips Attending Unavailabl e Rosaline, Chalon Primary Care Unavailable Rajan, Rudi Chi Attending Unavailable Rajan, Rudi Chi Primary Care Unavailable Rajan, Rudi Chi Referring Unavailable Rosaline, Chalon Primary Care Unavailable MaryjaneovRajwinder Attending Unavailable Bladimirnasov, Rajwinder Referring Unavailable Rosaline, Chalon Attending Unavailable Rosaline, Chalon Primary Care Unavailable Roslaine, Chalon Referring Unavailable Rajan, Rudi Chi Attending Unavailable Rajan, Rudi Chi Primary Care Unavailable Rajan, Rudi Chi Referring Unavailable Rosaline, Chalon Attending Unavailable Rosaline, Chalon Primary Care Unavailable Rosaline, Chalon Referring Unavailable Rosaline, Chalon Primary Care Unavailable Rosaline, Chalon Referring Unavailable Friend, Willie Attending Unavailable Rajan, Rudi Chi Attending Unavailable Rajan, Rudi Chi Primary Care Unavailable Rajan, Rudi Chi Attending Unavailable Rajan, Rudi Chi Primary Care Unavailable Rajan, Rudi Chi Referring Unavailable Rajan, Rudi Chi Referring Unavailable Rajan, Rudi Chi Attending Unavailable Rajan, Rudi Chi Primary Care Unavailable Rosaline, Chalon Primary Care Unavailable Vasyl Middleton Attending Unavailable Rajan, Rudi Chi Attending Unavailable Rajan, Rudi Chi Primary Care Unavailable Rajan, Rudi Chi Referring Unavailable Atanasov, Rajwinder Consulting Unavailable Rajwinder Luis Attending Unavailable Rajwinder Luis Referring Unavailable Rosaline, Chalon Primary Care Unavailable Rosaline, Chalon Primary Care Unavailable Rajwinder Luis Referring Unavailable Rajwinder Luis Attending Unavailable Rosaline, Chalon Primary Care Unavailable Rosaline, Chalon Referring Unavailable Friend, Willie Attending Unavailable Friend, Willie Consulting Unavailable Rosaline, Chalon Referring Unavailable AtanasRajwinder calderon Attending Unavailable Rosaline, Chalon Primary Care Unavailable Rosaline, Chalon Primary Care Unavailable Rajwinder Luis Referring Unavailable Rajwinder Luis Attending Unavailable Rajan, Rudi Chi Attending Unavailable Rajan, Rudi Chi Primary Care Unavailable Rajan, Rudi Chi Referring Unavailable Rosaline, Chalon Primary Care Unavailable Rosaline, Chalon Referring Unavailable BladimirnasovRajwinder Attending Unavailable Rajan, Rudi Chi Primary Care Unavailable Rajan, Rudi Chi Referring Unavailable Marii Perales Attending Unavailable Rajan, Rudi Chi Primary Care Unavailable Rajan, Rudi Chi Referring Unavailable Donna Madsen Attending Unavailable Rosaline, Chalon Primary Care Unavailable Rosaline, Chalon Referring Unavailable AtanasovRajwinder Attending Unavailable Rosaline, Chalon Primary Care Unavailable Rosaline, Chalon Referring Unavailable AtanasRajwinder calderon Attending Unavailable Rosaline, Chalon Referring Unavailable Rosaline, Chalon Primary Care Unavailable Marii Perales Attending Unavailable Allergies Allergy Classification Reported Allergen(s) Allergy Type Date of Onset Reaction(s) Facility (3 sources) Triiodobenzoic Acids Allergy to substance 06-30-19 Rash [facility] (2 sources) atorvastatin Drug Allergy 07-26-19 Upset Stomach [facility] (2 sources) PARoxetine Drug Allergy 07-26-19 Qulin poorly [facility] (2 sources) rosuvastatin Drug Allergy 07-26-19 Upset Stomach [facility] (2 sources) Simvastatin Drug Allergy 07-26-19 Upset Stomach [facility] (2 sources) HMG-CoA reductase inhibitor; Translations: [[id number] REDUCTASE INHIBITORS] Drug Intolerance 10-06-19 Intolerance [facility] (1 source) atorvastatin Drug Allergy 01-09-20 [facility] (1 source) buPROPion Drug Allergy 01-09-20 [facility] (1 source) PARoxetine Drug Allergy 01-09-20 [facility] (1 source) rosuvastatin Drug Allergy 01-09-20 [facility] (1 source) Sertraline Drug Allergy 01-09-20 [facility] (1 source) Simvastatin Drug Allergy 01-09-20 [facility] (1 source) Iodinated Contrast Media Drug allergy (disorder) 01-09-20 [facility] Repository Medications Current Medications Medication Drug [...] MG PO DAILY July 13, 2022 11:00pm Aicdusxh-Dqdo-Qxo3-C- Liset-Bosw (Osteo Bi-Flex Triple Strength) 1 EACH tablet (5 sources) Start: 07-04-2016 take 1 tablet by mouth once daily Wmvshzah-Rlfs-Cbx4-C- Liset-Bosw (Osteo Bi-Flex Triple Strength) 1 EACH tablet Active 2 EACH PO DAILY July 04, 2016 10:20am Start: 07-04-2016 End: 07-14-2022 take 1 tablet by mouth once daily Qpbzcyyx-Gslo-Qcw5-C-Liset-Bosw (Osteo Bi -Flex Triple Strength) 1 EACH tablet Discontinued 2 EACH PO DAILY July 03, 2016 11:00pm July 14, 2022 7:42am Start: 07-04-2016 End: 07-14-2022 take 1 tablet by mouth once daily Ammlyokl-Zpud-Dss1-C-Liset-Bosw (Osteo Bi -Flex Triple Strength) 1 EACH tablet Discontinued 2 EACH PO DAILY July 04, 2016 12:00am July 14, 2022 8:42am Start: 07-04-2016 take 1 tablet by edna th once daily Sttymbyl-Ouoo-Vpq9-C-Liset-Bosw (Osteo Bi -Flex Triple Strength) 1 EACH tablet Active 2 EACH PO DAILY July 04, 2016 12:00am Lmsynecx-Kuou-Inq5-C-Liset-Osmany sw (Osteo Bi-Flex Triple Strength) 750 mg-644 mg- 30 mg-1 mg tablet (2 sources) Start: 07-14-2022 take 1 tablet by mouth once daily Rmjdhort-Piar-Otx3-C-Liset-Bosw (Osteo Bi-Flex Triple Strength) 750 mg-644 mg- 30 mg-1 mg tablet Active 1 TABLET PO DAILY July 14, 2022 7:40am Start: 07-14-2022 take 1 tablet by edna th once daily Huavwrha-Zteo-Pty2-C-Liset-Bosw (Osteo Bi -Flex Triple Strength) 750 mg-644 [...] TABLET PO DAILY July 14, 2022 12:00am [place] 1-Gvy-Ltf-Fish Oil (Fish Oil) 60-90-500 mg capsule (2 sources) Start: 07-14-2022 take 1 capsule by mouth once daily [place] 0-Kiw-Tby-Fish Oil (Fish Oil) 60-90-500 mg capsule Active 1 CAP PO DAILY July 13, 2022 11:00pm Start: 07-14-2022 take 1 capsule by mo [facility] once daily [place] 5-Cfo-Tnu-Fish Oil (Fish Oil) 60-90-500 mg capsule Active [...] 7:42am docusate sodium 50 mg / sennosides, halfway 8.6 mg oral tablet (10 sources) Start: [...] pain; Translations: [Epigastric pain] Onset: 05-01-2024 Episodic Conditions associated with dizziness or vertigo (1 source) Dizziness and giddiness; Translations: [Dizziness and giddiness] Onset: 01-08-2025 Episodic Diseases of white blood cells (4 [...] impaction; Translations: [Fecal impaction] Onset: 11-25-2024 Episodic Other gastrointestinal disorders (1 source) Other irritable bowel syndrome; Translations: [Other irritable bowel syndrome] Onset: 12-01-2024 Chronic Other gastrointestinal disorders (1 source) Diarrhea, unspecified; Translations: [Diarrhea, unspecified] Onset: 10-18-2024 Episodic Other gastrointestinal disorders (1 source) Other fecal abnormalities; Translations: [Other fecal abnormalities] Onset: 10-18-2024 Episodic Other nervous system disorders (1 source) Ataxia, unspecified; Translations: [Ataxia, unspecified] Onset: 01-08-2025 Episodic Thyroid disorders (1 source) Hypothyroidism, unspecified; Translations: [Hypothyroidism, unspecified] Onset: 06-11-2024 Chronic Unclassified (1 source) Low back pain, unspecified; Translations: [Low back pain, unspecified] Onset: 10-30-2024 Past or Other Problems Problem Classification Problem Date Documented Da te Episodic/Chronic Gastrointestinal hemorrhage (2 sources) Melena; Translations: [Melena] Onset: 03-21-2024 Episodic Nausea and vomiting (4 sources) Nausea; Translations: [Nausea] Onset: 10-05-2024 10-05-2024 Episodic Other gastrointestinal disorders (1 source) Constipation, unspecified; Translations: [Constipation, unspecified] Onset: 06-04-2024 Episodic Other non-traumatic joint disorders (1 source) Pain in right shoulder; Translations: [Pain in right shoulder] Onset: 08-06-2024 Episodic Results Test Name Value Interpretation Reference Range Facility Brain/Head without Contrasto n 01-08-2025 Brain/Head without Contrast [facility] Imaging Services [address] [place] [address] [id number] Brain/Head without Contrast MR#: [id number] Acct: [id number] Name: ALISON SANTACRUZ Rep #: [id number] : 1940 F 84 From: Bowen Cole MD PCP: Dr. Rudi Tolentino MD Status: REG CLI Study: Brain/Head without Contrast Date of Exam: 07/28 Exam# [id number] Ordering Dr: Rudi Tolentino MD PROCEDURE: CT BRAIN/HEAD WITHOUT CONTRAST 01/08/2025 REASON FOR EXAM: DIZZINESS/ATAXIA TECHNIQUE: Procedure Code: CTBR Modality: CT Procedure: BRAIN/HEAD WITHOUT CONTRAST Coronal and Sagittal reconstruction series were provided. One or more dose reduction techniques were used (e.g., Automated exposure control, adjustment of the mA and/or kV according to patient size, use of iterative reconstruction technique. RADIATION DOSE SUMMARY: CTDlvol: 44.99 mGy DLP: 846.73 mGycm COMPARISON: Maxillofacial CT 10/27/2023. FINDINGS: No acute intracranial hemorrhage, extra-axial collection, mass effect or evidence of acute infarct. Mild generalized brain parenchymal volume loss and chronic microangiopathic changes, subjectively age-appropriate. Atherosclerotic vascular calcifications and nonspecific age-related mineralization in the bilateral basal ganglia. Absent [place] ocular lenses. Intact skull base and calvarium. Well-aerated paranasal sinuses and mastoid air cells. CT/Brain/Head without Contrast IMPRESSION: No acute intracranial abnormality. Reading Location: [id number] CC: Dr. Rudi Tolentino MD Barrel Drum Cutter: Signed Normal [facility] MR/BMS.BPon 01-08-2025 MR/BMS.BP [address], [address] [place] [address] OFFICE VISIT Date of Service: 01/08/25 MR#: [id number] Acct: [id number] Name: ALISON SANTACRUZ Rep #: [id number] : 1940 Provider: REESE middleton Age/Sex: 84/F Location: [facility].BP Status: Signed Intake Vital Signs 10/25/24 09:50 01/08/25 08:53 Height 5 ft 6 in 5 ft 6 in Weight: 151 lb BMI 24.3 BP 125/73 H Blood Pressure Location Lt brachial Position Sitting Respiration 16 Pulse 86 Pulse Source Monitor BP Intake Visit Reasons: Anxiety Accompanied by: Daughter Allergies Iodinated Contrast Media Allergy (Verified 01/08/25 08:56) Rash atorvastatin (From Lipitor) Adverse Reaction (Verified 01/08/25 08:56) Upset Stomach bupropion (From Wellbutrin) Adverse Reaction (Verified 01/08/25 08:56) Other paroxetine (From Paxil) Adverse Reaction (Verified 01/08/25 08:56) Qulin poorly rosuvastatin (From Crestor) Adverse Reaction (Verified 01/08/25 08:56) Upset Stomach sertraline (From Zoloft) Adverse Reaction (Verified 01/08/25 08:56) Other simvastatin (From Zocor) Adverse Reaction (Verified 01/08/25 08:56) Upset Stomach Medications ???Medication ???Instructions ???Recorded ???Confirmed ???Type amlodipine 5 mg tablet 5 mg PO DAILY 07/14/22 01/08/25 Hi story levothyroxine 137 mcg tablet 137 mcg PO DAILY 07/14/22 01/08/25 History citalopram 40 mg tablet (Celexa) 40 mg PO DAILY 30 days #30 tabs 01/08/25 Rx pantoprazole 40 mg tablet,delayed 40 mg PO BID #90 tabs 02/16/24 Rx release dicyclomine 10 mg capsule 10 mg PO BID #30 caps 10/07/2407/28 Rx linaclotide 72 mcg capsule 72 mcg PO QAM #60 caps 10/11/24 Rx (Linzess) buspirone 10 mg tablet 10 mg PO TID 10/14/24 01/08/25 His tory fluticasone propionate 50 1 spray intranasal DAILY PRN 10/1401/08/25 History mcg/actuation nasal allergy symptoms spray,suspension (24 Hour Allergy Relief) mirtazapine 7.5 mg tablet 7.5 mg PO QHS #30 tabs 01/08/25 Rx Have you fallen in the past year?: Yes (Within this month and hit head; c/o dizzy) [facility] Medical History (Updated 01/09/25 @ 07:12 by REESE Damian) Spinal stenosis Arthritis Gastric reflux Wears hearing aid Loss [...] features Hypothyroid Hypertension Leukopenia Surgical History (Updated 01/08/25 @ 09:05 by Georgie Mdidleton) History of cataract surgery Hx of colonoscopy Trigger finger of left thumb History of reverse total replacement of left shoulder joint H/O varicose vein ligation History of tonsillectomy and adenoidectomy History of hysterectomy Family History (Updated 01/08/25 @ 09:06 by Georgie Middleton) Mother Hypertension Father Hypertension Depression CVA (cerebral vascular accident) Bladder cancer Brother Cancer Social History Smoking Status: Never smoker alcohol intake: current alcohol intake frequency: holidays/special occasions only substance use type: does not use HPI History of Present Illness History provided by: patient and family (daughter Юлия) Chief complaint: Anxiety, Insomnia, Depression HPI: Alison Santacruz is an 84 year old female patient presenting today for an intake evaluation. Presents today due to anxiety and depression not being well managed. Does feel symptoms are worsened since her brother in 2022. Sleep: Does not sleep well since moving. Has been taking trazodone and would sleep 8 hours but has not been recently. Interest: Admits to feelings of depression frequently. Reports she has been struggling to get herself to cry. In the past has enjoyed painting but has given up on this recently. Energy: Reports lack of energy. Guilt: Admits to feelings of worthlessness at times due to not working any more. Denies feelings of guilt or hopelessness. Concentration: Admits to large concerns with focus, concentration, and inattention. Is easily distracted. Appetite: Appetite is getting better. Reports with anxiety does feel nauseous. Psychomotor: WNL Suicide: Denies SI/HI. Memory: Some concerns with memory. Is forgetful. Anxiety: Reports feeling anxious about changes. Admits to frequent (more content not included)... Normal [facility] Stool Occult Blood iFOBon STOB Negative Normal [facility] Comment on above: Performed By: #### L 100.0100, L500.4050 #### [facility] Laboratory [address] [place], [address] CBC W/Diff, Automatedon 11-05 Absolute Lymph 1.58 X10 3/uL Normal 0.83-4.51 [facility] Comment on above: Performed By: #### L 100.0100, M100.678, L500.4050 ####[facility] [address] [place], [address] Absolute Neut 3.2 X10 3/uL Normal 2.0-7.7 [facility] Comment on above: Performed By: #### L 100.0100, M100.678, L500.4050 ####[facility] [address] [place], [address] Basophils/100 WBC (Bld) 0.9 % Normal 0-1 [facility] Comment on above: Performed By: #### L 100.0100, M100.678, L500.4050 ####[facility] [address] [place], [address] Eosinophils/100 WBC (Bld) 3.7 % Normal 0-5 [facility] Comment on above: Performed By: #### L 100.0100, M100.678, L500.4050 ####[facility] [address] [place], [address] Erythrocyte distribution width (RBC) [Ratio] 11.9 % Normal 11.6-14.6 [facility] Comment on above: Performed By: #### L 100.0100, M100.678, L500.4050 ####[facility] [address] [place], [address] Hematocrit (Bld) [Volume fraction] 35.0 % Low 37-47 [facility] Comment on above: Performed By: #### L 100.0100, M100.678, L500.4050 ####[facility] [address] [place], [address] Hemoglobin (Bld) [Mass/Vol] 12.3 g/dL Normal 12.0-15.0 [facility] Comment on above: Performed By: #### L 100.0100, M100.678, L500.4050 ####[facility] [address] [place], [address] IG% 0.500 Normal 0.0-0.9 [facility] Comment on above: Result Comment: IG% - Immature Granulocytes (promyelocytes, myelocytes and metamyelocytes) > 1% indicates that a LEFT SHIFT is Present. Performed By: #### L 100.0100, M100.678, L500.4050 ####[facility] [address] [place], [address] Lymphocytes/100 WBC (Bld) 28.9 % Normal 19-41 [facility] Comment on above: Performed By: #### L 100.0100, M100.678, L500.4050 ####[facility] [address] [place], [address] MCH (RBC) [Entitic mass] 30.9 pg Normal 27.0-32.0 [facility] Comment on above: Performed By: #### L 100.0100, M100.678, L500.4050 ####[facility] [address] [place], [address] MCHC (RBC) [Mass/Vol] 35.1 g/dL Normal 32-36 [facility] Comment on above: Performed By: #### L 100.0100, M100.678, L500.4050 ####[facility] [address] [place], [address] MCV (RBC) [Entitic vol] 87.9 fL Normal 81-99 [facility] Comment on above: Performed By: #### L 100.0100, M100.678, L500.4050 ####[facility] [address] [place], [address] Monocytes/100 WBC (Bld) 6.8 % Normal 0-10 [facility] Comment on above: Performed By: #### L 100.0100, M100.678, L500.4050 ####[facility] [address] [place], [address] Neutrophils/100 WBC (Bld) 59.2 % Normal 47-70 [facility] Comment on above: Performed By: #### L 100.0100, M100.678, L500.4050 ####[facility] [address] [place], [address] Nucleated RBC (Bld) [#/Vol] 0 10*3/uL Normal 0-5 [facility] Comment on above: Performed By: #### L 100.0100, M100.678, L500.4050 ####[facility] [address] [place], [address] Platelet mean volume (Bld) [Entitic vol] 8.2 fL Normal 6.2-12.0 [facility] Comment on above: Performed By: #### L 100.0100, M100.678, L500.4050 ####[facility] [address] [place], [address] Platelets (Bld) [#/Vol] 189 10*3/uL Normal 150-450 [facility] Comment on above: Performed By: #### L 100.0100, M100.678, L500.4050 ####[facility] [address] [place], [address] RBC (Bld) [#/Vol] 3.98 10*6/uL Low 4.2-5.4 [facility] Comment on above: Performed By: #### L 100.0100, M100.678, L500.4050 ####[facility] [address] [place], [address] RDW SD 38.0 fl Normal 35.1-43.9 [facility] Comment on above: Performed By: #### L 100.0100, M100.678, L500.4050 ####[facility] [address] [place], [address] WBC (Bld) [#/Vol] 5.5 10*3/uL Normal 4.4-11.0 [facility] Comment on above: Performed By: #### L 100.0100, M100.678, L500.4050 ####[facility] [address] [place], [address] Comprehensive Metabolic Prof ilon 11-28-2024 Albumin [Mass/Vol] 4.4 g/dL Normal 3.4-4.8 [facility] Comment on above: Performed By: #### L 100.0100, M100.678, L500.4050 ####[facility] [address] [place], [address] Albumin/Globulin [Mass ratio] 2.0 {ratio} Normal 0.9-2.4 [facility] Comment on above: Performed By: #### L 100.0100, M100.678, L500.4050 ####[facility] [address] [place], [address] ALK PHOS 73 U/L Normal 35-104 [facility] Comment on above: Performed By: #### L 100.0100, M100.678, L500.4050 ####[facility] [address] [place], [address] ALT [Catalytic activity/Vol] 17 U/L Normal <=34 [facility] Comment on above: Performed By: #### L 100.0100, M100.678, L500.4050 ####[facility] [address] [place], [address] AST [Catalytic activity/Vol] 22 U/L Normal <=31 [facility] Comment on above: Performed By: #### L 100.0100, M100.678, L500.4050 ####[facility] [address] [place], [address] Bilirubin [Mass/Vol] 0.49 mg/dL Normal 0.00-1.30 [facility] Comment on above: Performed By: #### L 100.0100, M100.678, L500.4050 ####[facility] [address] [place], [address] BUN/CRE 18.9 RATIO Normal 10-20 [facility] Comment on above: Performed By: #### L 100.0100, M100.678, L500.4050 ####[facility] [address] [place], [address] Calcium [Mass/Vol] 9.0 mg/dL Normal 7.6-11.0 [facility] Comment on above: Performed By: #### L 100.0100, M100.678, L500.4050 ####[facility] [address] [place], [address] Chloride [Moles/Vol] 103 mmol/L Normal 98-108 [facility] Comment on above: Performed By: #### L 100.0100, M100.678, L500.4050 ####[facility] [address] [place], [address] CO2 [Moles/Vol] 26.7 mmol/L Normal 21.0-32.0 [facility] Comment on above: Performed By: #### L 100.0100, M100.678, L500.4050 ####[facility] [address] [place], [address] Creatinine [Mass/Vol] 0.79 mg/dL Normal 0.70-1.20 [facility] Comment on above: Performed By: #### L 100.0100, M100.678, L500.4050 ####[facility] [address] [place], [address] GAP 10 Normal 5-15 [facility] Comment on above: Performed By: #### L 100.0100, M100.678, L500.4050 ####[facility] [address] [place], [address] GFR/1.73 sq M.predicted among non-blacks MDRD (S/P/Bld) [Vol rate/Area] 73 mL/min/{1.73_m2} Normal >60 [facility] Comment on above: Result Comment: mL/m in/1.73m2 CKD-EPI Creatinine Equation (2020) Performed By: #### L 100.0100, M100.678, L500.4050 ####[facility] [address] [place], [address] Globulin (S) [Mass/Vol] 2.2 g/dL Normal 2.2-4.2 [facility] Comment on above: Performed By: #### L 100.0100, M100.678, L500.4050 ####[facility] [address] [place], [address] Glucose [Mass/Vol] 117 mg/dL High 70-99 [facility] Comment on above: Performed By: #### L 100.0100, M100.678, L500.4050 ####[facility] [address] [place], [address] Potassium [Moles/Vol] 3.8 mmol/L Normal 3.3-5.1 [facility] Comment on above: Performed By: #### L 100.0100, M100.678, L500.4050 ####[facility] [address] [place], [address] Sodium [Moles/Vol] 140 mmol/L Normal 133-145 [facility] Comment on above: Performed By: #### L 100.0100, M100.678, L500.4050 ####[facility] [address] [place], [address] T PROT 6.6 g/dL Normal 5.9-8.4 [facility] Comment on above: Performed By: #### L 100.0100, M100.678, L500.4050 ####[facility] [address] [place], [address] Urea nitrogen [Mass/Vol] 15 mg/dL Normal 4-19 [facility] Comment on above: Performed By: #### L 100.0100, M100.678, L500.4050 ####[facility] [address] [place], [address] M100.678on 11-28-2024 M100.678 Pending SARS-CoV-2 (COVID 19) Negative INFLUENZA A Negative INFLUENZA B Negative RSV PCR Negative Normal [facility] Comment on above: Performed By: #### L 100.0100, M100.678, L500.4050 ####[facility] [address] [place], [address] Inital Evaluation (1) - PTon 10-29-2024 Inital Evaluation (1) - PT [facility] Physical Therapy Health[address] [place] [address] / REHABILITATION SERVICES INITIAL EVALUATION MR#: [id number] Acct: [id number] Name: [place] SANTACRUZ Rep #: [id number] : 1940 84 From: Brice Walter DPT, OCS, CSCS Referring Dr.: Dr. Rudi Tolentino MD Status: REG RCR Insurance: MEDICARE PART A B [facility] Patient's Visit Information Visit Information Visit Information: [...] sick. No longer doing that. Lives at [facility] for assisted living. now n allergies. back [...] 4-6 Weeks Goal 2:: Pain in am 1/10 at worst adn 75% better Goal Time [...] to be FAXED BACK to us at [phone] for Medicare purposes. For Medicare only, by signing this I certify the plan of care. Please let me know if there are questions or concerns regarding this plan of care. Physician Signature: Date: 10/29/24 1214 CC: Dr. Rudi Tolentino MD EBG Signed Normal [facility] Cardiology Visit Reporton Cardiology Visit Report [facility] Heart [address] [place] [address] OFFICE VISIT Date of Service: 10/25/24 MR#: [id number] Acct: [id number] Name: [place] SANTACRUZ Rep #: [id number] : 1940 Provider: REESE landon Age/Sex: 84/F Location: [facility] Status: Signed HPI HPI History of Present [...] air Intake Visit Reasons: 1 Y FU Conductor/Engineer Required: No Accompanied by: Is patient in pain?: No Allergies Iodinated Contrast Media Allergy (Verified 10/25/24 10:00) Rash atorvastatin (From Lipitor) Adverse Reaction (Verified 10/25/24 10:00) Upset Stomach bupropion (From Wellbutrin) Adverse Reaction (Verified 10/25/24 10:00) Other paroxetine (From Paxil) Adverse Reaction (Verified 10/25/24 10:00) Qulin poorly rosuvastatin (From Crestor) Adverse Reaction (Verified [...] mg PO DAILY 30 days #30 tabs 10/25/24 Rx trazodone 100 mg tablet 100 mg [...] the past year?: No PFSH Medical History Arthritis Gastric reflux Wears hearing aid Loss of hearing Wears glasses Depression Alcohol use Thyroid disease High cholesterol Easy bruising History of IBS Bleeding hemorrhoids Heartburn Non-smoker History of stress test History of echocardiogram Cardiology follow-up encounter Abnormal EKG Varicose veins of both lower extremities Thrombocytopenia Polyp of colon Hyperlipidemia Adjustment disorder Insomnia IB (more content not included)... Normal [facility] L/S Spine Min 4 Viewson 10-05 L/S Spine Min 4 Views [facility] Imaging Services [address] [place], [place] [address] L/S Spine Min 4 Views MR#: [id number] Acct: [id number] Name: [place]ISON SANTACRUZ Rep #: [id number] : 1940 F 84 From: Steve Wolff MD PCP: Dr. Rudi Tolentino MD Status: REG CLI Study: L/S Spine Min 4 Views Date of Exam: 10/23/24 Exam# [id number] Ordering Dr: Rudi Tolentino MD PROCEDURE: L/S [...] Location: YFN CC: Dr. Rudi Tolentino MD Barrel Drum Cutter: Signed Normal [facility] Ova and Parasites 8623on OP OVA AND PARASITES EX AM, ROUTINE These results were obtained using wet preparation(s) and trichrome stained smear. This test does not include testing for Crytosporidium parvum, Cyclospora, or Microsporidia. One negative specimen does not rule out the possibility of a parasitic infection. TESTING PERFORMED AT [facility]. ORIGINAL REPORT ON FILE IN LAB CONTAINS ADDITIONAL TEST SITE INFORMATION. Ova/Parasite Exam NO OVA, CYSTS, OR PARASITES FOUND. Normal [facility] Comment on above: Performed By: #### L 100.0100, L500.4050 #### [facility] Laboratory [address] [place] [address] [id number] L3410.9992on 10-21-2024 [facility]. COMMENT Normal . [facility] Comment on above: Order Comment: [id number] STOOL CULTURE Result Comment: Test Ordered: [id number] Stool Culture Salmonella/Shigella Screen Note: Final report Reference Range: . Result 1 Comment CB Reference Range: . No Salmonella or Shigella recovered. Campylobacter Culture Note: Final report Reference Range: . Result 1 Comment CB Reference Range: . No Campylobacter species isolated. E coli Shiga Toxin EIA Negative Reference Range: Negative Performed at: [address] [id number] [employer] Log: Remi Davis PhD, Phone: [phone] Performed By: #### L 5098.9992 #### [facility] Laboratory [address] [place] [address]. [place], [place], [id number] L3410.9992on 10-17-2024 [facility]. Normal [facility] Comment on above: Order Comment: [id number] STOOL CX Result [facility]: [facility] Salmonella/Shigella Screen Final Report Result 1 NO Salmonella or Shigella recovered. Campylobacter Culture Final Report Result 1 NO Campylobacter species isolated. E. coli Shiga Toxin EIA NEGATIVE TESTING [facility]FOR[facility] AT [facility]. ORIGINAL REPORT ON FILE IN LAB CONTAINS ADDITIONAL TEST SITE INFORMATION. Performed By: #### L 100.0100, L500.4050 #### [facility] Laboratory [address] [place], [address] Abd Inc Decub and/or Erecton 10-16-2024 Abd Inc Decub and/or Erect [facility] Imaging Services [address] [place] [address] Abd Inc Decub and/or Erect MR#: [id number] Acct: [id number] Name: ALISON SANTACRUZ Rep #: [id number] : 1940 F 84 From: Barbara Huerta MD PCP: Dr. Rudi Tolentino MD Status: REG CLI Study: Abd Inc Decub and/or Erect Date of Exam: 10/16 Exam# [id number] Ordering Dr: Rudi Tolentino MD PROCEDURE: ABD [...] levoscoliosis. IMPRESSION: No acute findings. Reading Location: [facility] CC: Dr. Rudi Tolentino MD Barrel Drum Cutter: Signed Normal [facility] CBC W/Diff, Automatedon 10-04 Absolute Lymph 1.36 X10 3/uL Normal 0.83-4.51 [facility] Comment on above: Performed By: #### L 500.4100, L3890.6301, L501.9520, L506.1001, L500.4050, L100.0100 ####[facility] [address] [place], [address] Absolute Neut 4.4 X10 3/uL Normal 2.0-7.7 [facility] Comment on above: Performed By: #### L 500.4100, L3890.6301, L501.9520, L506.1001, L500.4050, L100.0100 ####[facility] [address] [place], [address] Basophils/100 WBC (Bld) 0.8 % Normal 0-1 [facility] Comment on above: Performed By: #### L 500.4100, L3890.6301, L501.9520, L506.1001, L500.4050, L100.0100 ####[facility] [address] [place], [address] Eosinophils/100 WBC (Bld) 1.4 % Normal 0-5 [facility] Comment on above: Performed By: #### L 500.4100, L3890.6301, L501.9520, L506.1001, L500.4050, L100.0100 ####[facility] [address] [place], [address] Erythrocyte distribution width (RBC) [Ratio] 12.0 % Normal 11.6-14.6 [facility] Comment on above: Performed By: #### L 500.4100, L3890.6301, L501.9520, L506.1001, L500.4050, L100.0100 ####[facility] [address] [place], [address] Hematocrit (Bld) [Volume fraction] 36.4 % Low 37-47 [facility] Comment on above: Performed By: #### L 500.4100, L3890.6301, L501.9520, L506.1001, L500.4050, L100.0100 ####[facility] [address] [place], [address] Hemoglobin (Bld) [Mass/Vol] 12.6 g/dL Normal 12.0-15.0 [facility] Comment on above: Performed By: #### L 500.4100, L3890.6301, L501.9520, L506.1001, L500.4050, L100.0100 ####[facility] [address] [place], [address] IG% 0.300 Normal 0.0-0.9 [facility] Comment on above: Result Comment: IG% - Immature Granulocytes (promyelocytes, myelocytes and metamyelocytes) > 1% indicates that a LEFT SHIFT is Present. Performed By: #### L 500.4100, L3890.6301, L501.9520, L506.1001, L500.4050, L100.0100 ####[facility] [address] [place], [address] Lymphocytes/100 WBC (Bld) 21.4 % Normal 19-41 [facility] Comment on above: Performed By: #### L 500.4100, L3890.6301, L501.9520, L506.1001, L500.4050, L100.0100 ####[facility] [address] [place], [address] MCH (RBC) [Entitic mass] 30.9 pg Normal 27.0-32.0 [facility] Comment on above: Performed By: #### L 500.4100, L3890.6301, L501.9520, L506.1001, L500.4050, L100.0100 ####[facility] [address] [place], [address] MCHC (RBC) [Mass/Vol] 34.6 g/dL Normal 32-36 [facility] Comment on above: Performed By: #### L 500.4100, L3890.6301, L501.9520, L506.1001, L500.4050, L100.0100 ####[facility] [address] [place], [address] MCV (RBC) [Entitic vol] 89.2 fL Normal 81-99 [facility] Comment on above: Performed By: #### L 500.4100, L3890.6301, L501.9520, L506.1001, L500.4050, L100.0100 ####[facility] [address] [place], [address] Monocytes/100 WBC (Bld) 6.3 % Normal 0-10 [facility] Comment on above: Performed By: #### L 500.4100, L3890.6301, L501.9520, L506.1001, L500.4050, L100.0100 ####[facility] [address] [place], [address] Neutrophils/100 WBC (Bld) 69.8 % Normal 47-70 [facility] Comment on above: Performed By: #### L 500.4100, L3890.6301, L501.9520, L506.1001, L500.4050, L100.0100 ####[facility] [address] [place], [address] Nucleated RBC (Bld) [#/Vol] 0 10*3/uL Normal 0-5 [facility] Comment on above: Performed By: #### L 500.4100, L3890.6301, L501.9520, L506.1001, L500.4050, L100.0100 ####[facility] [address] [place], [address] Platelet mean volume (Bld) [Entitic vol] 8.4 fL Normal 6.2-12.0 [facility] Comment on above: Performed By: #### L 500.4100, L3890.6301, L501.9520, L506.1001, L500.4050, L100.0100 ####[facility] [address] [place], [address] Platelets (Bld) [#/Vol] 205 10*3/uL Normal 150-450 [facility] Comment on above: Performed By: #### L 500.4100, L3890.6301, L501.9520, L506.1001, L500.4050, L100.0100 ####[facility] [address] [place], [address] RBC (Bld) [#/Vol] 4.08 10*6/uL Low 4.2-5.4 [facility] Comment on above: Performed By: #### L 500.4100, L3890.6301, L501.9520, L506.1001, L500.4050, L100.0100 ####[facility] [address] [place], [address] RDW SD 39.3 fl Normal 35.1-43.9 [facility] Comment on above: Performed By: #### L 500.4100, L3890.6301, L501.9520, L506.1001, L500.4050, L100.0100 ####[facility] [address] [place], [address] WBC (Bld) [#/Vol] 6.4 10*3/uL Normal 4.4-11.0 [facility] Comment on above: Performed By: #### L 500.4100, L3890.6301, L501.9520, L506.1001, L500.4050, L100.0100 ####[facility] [address] [place], [address] Comprehensive Metabolic Prof ilon 10-16-2024 Albumin [Mass/Vol] 4.7 g/dL Normal 3.4-4.8 [facility] Comment on above: Performed By: #### L 500.4100, L3890.6301, L501.9520, L506.1001, L500.4050, L100.0100 ####[facility] [address] [place], [address] Albumin/Globulin [Mass ratio] 1.9 {ratio} Normal 0.9-2.4 [facility] Comment on above: Performed By: #### L 500.4100, L3890.6301, L501.9520, L506.1001, L500.4050, L100.0100 ####[facility] [address] [place], [address] ALK PHOS 64 U/L Normal 35-104 [facility] Comment on above: Performed By: #### L 500.4100, L3890.6301, L501.9520, L506.1001, L500.4050, L100.0100 ####[facility] [address] [place], [address] ALT [Catalytic activity/Vol] 18 U/L Normal <=34 [facility] Comment on above: Performed By: #### L 500.4100, L3890.6301, L501.9520, L506.1001, L500.4050, L100.0100 ####[facility] [address] [place], [address] AST [Catalytic activity/Vol] 19 U/L Normal <=31 [facility] Comment on above: Performed By: #### L 500.4100, L3890.6301, L501.9520, L506.1001, L500.4050, L100.0100 ####[facility] [address] [place], [address] Bilirubin [Mass/Vol] 0.82 mg/dL Normal 0.00-1.30 [facility] Comment on above: Performed By: #### L 500.4100, L3890.6301, L501.9520, L506.1001, L500.4050, L100.0100 ####[facility] [address] [place], [address] BUN/CRE 15.0 RATIO Normal 10-20 [facility] Comment on above: Performed By: #### L 500.4100, L3890.6301, L501.9520, L506.1001, L500.4050, L100.0100 ####[facility] [address] [place], [address] Calcium [Mass/Vol] 9.4 mg/dL Normal 7.6-11.0 [facility] Comment on above: Performed By: #### L 500.4100, L3890.6301, L501.9520, L506.1001, L500.4050, L100.0100 ####[facility] [address] [place], [address] Chloride [Moles/Vol] 101 mmol/L Normal 98-108 [facility] Comment on above: Performed By: #### L 500.4100, L3890.6301, L501.9520, L506.1001, L500.4050, L100.0100 ####[facility] [address] [place], [address] CO2 [Moles/Vol] 25.9 mmol/L Normal 21.0-32.0 [facility] Comment on above: Performed By: #### L 500.4100, L3890.6301, L501.9520, L506.1001, L500.4050, L100.0100 ####[facility] [address] [place], [address] Creatinine [Mass/Vol] 0.87 mg/dL Normal 0.70-1.20 [facility] Comment on above: Performed By: #### L 500.4100, L3890.6301, L501.9520, L506.1001, L500.4050, L100.0100 ####[facility] [address] [place], [address] GAP 14 Normal 5-15 [facility] Comment on above: Performed By: #### L 500.4100, L3890.6301, L501.9520, L506.1001, L500.4050, L100.0100 ####[facility] [address] [place], [address] GFR/1.73 sq M.predicted among non-blacks MDRD (S/P/Bld) [Vol rate/Area] 65 mL/min/{1.73_m2} Normal >60 [facility] Comment on above: Result Comment: mL/m in/1.73m2 CKD-EPI Creatinine Equation (2020) Performed By: #### L 500.4100, L3890.6301, L501.9520, L506.1001, L500.4050, L100.0100 ####[facility] [address] [place], [address] Globulin (S) [Mass/Vol] 2.5 g/dL Normal 2.2-4.2 [facility] Comment on above: Performed By: #### L 500.4100, L3890.6301, L501.9520, L506.1001, L500.4050, L100.0100 ####[facility] [address] [place], [address] Glucose [Mass/Vol] 93 mg/dL Normal 70-99 [facility] Comment on above: Performed By: #### L 500.4100, L3890.6301, L501.9520, L506.1001, L500.4050, L100.0100 ####[facility] [address] [place], [address] Potassium [Moles/Vol] 3.7 mmol/L Normal 3.3-5.1 [facility] Comment on above: Performed By: #### L 500.4100, L3890.6301, L501.9520, L506.1001, L500.4050, L100.0100 ####[facility] [address] [place], [address] Sodium [Moles/Vol] 141 mmol/L Normal 133-145 [facility] Comment on above: Performed By: #### L 500.4100, L3890.6301, L501.9520, L506.1001, L500.4050, L100.0100 ####[facility] [address] [place], [address] T PROT 7.2 g/dL Normal 5.9-8.4 [facility] Comment on above: Performed By: #### L 500.4100, L3890.6301, L501.9520, L506.1001, L500.4050, L100.0100 ####[facility] [address] [place], [address] Urea nitrogen [Mass/Vol] 13 mg/dL Normal 4-19 [facility] Comment on above: Performed By: #### L 500.4100, L3890.6301, L501.9520, L506.1001, L500.4050, L100.0100 ####[facility] [address] [place], [address] Hepatitis C Antibodyon 10-16 Hepatitis C Ab Non-Reactive Normal Nonreactive [facility] Comment on above: Result Comment: Reac tive: Presumptive evidence of antibodies to HCV. Follow CDC recommendations for supplemental testing. Non-Reactive: Antibodies to HCV were not detected; does not exclude the possibility of exposure to HCV Reactive Results are presumptive evidence of antibodies to HCV. Follow CDC recommendations for supplemental testing. Order confirmation testing: HCV Quant by PCR testing - HCVPCR #[id number] Non Reactive: < 0.8 Equivocal: >/= 0.8 to < 1.0 Reactive: >/= 1.0 The [facility] requires that a reactive/equivocal HCV antibody result be sent out for confirmation. HCV Quant by PCR testing. Performed By: #### L 500.4100, L3890.6301, L501.9520, L506.1001, L500.4050, L100.0100 ####[facility] [address] [place], [address] Lipid Profileon 10-16-2024 CHOL:HDL 3.08 Normal [facility] Comment on above: Performed By: #### L 500.4100, L3890.6301, L501.9520, L506.1001, L500.4050, L100.0100 ####[facility] [address] [place], [place], [address]) Cholesterol [Mass/Vol] 249 mg/dL High <=200 [facility] Comment on above: Result Comment: Chol esterol level, Desirable <200 mg/dL Borderline high cholesterol 200-239 mg/dL High cholesterol >=240 mg/dL Recommendations of the NCEP Adult Treatment Panel for the following risk-cutoff thresholds for the [place] population. Performed By: #### L 500.4100, L3890.6301, L501.9520, L506.1001, L500.4050, L100.0100 ####[facility] [address] [place], [address] Cholesterol in HDL [Mass/Vol] 81 mg/dL Normal [facility] Comment on above: Result Comment: Cassie onal Cholesterol Education Program (NCEP) guidelines: <40 mg/dL: Low HDL-cholesterol (major risk factor for CHD) >= 60 mg/dL: High HDL-cholesterol (negative risk factor for CHD) HDL-cholesterol is affected by a number of factors, e.g. smoking, exercise, hormones, sex and age. Performed By: #### L 500.4100, L3890.6301, L501.9520, L506.1001, L500.4050, L100.0100 ####[facility] [address] [place], [address] Cholesterol in LDL [Mass/Vol] 146 mg/dL Normal [facility] Comment on above: Result Comment: Bord axyeyo=570-598 mg/dL Higher Ofwm=065 mg/dL or greater Friedwald Equation for LDL-C Performed By: #### L 500.4100, L3890.6301, L501.9520, L506.1001, L500.4050, L100.0100 ####[facility] [address] [place], [address] Cholesterol in VLDL [Mass/Vol] 22 mg/dL Normal 5-40 [facility] Comment on above: Performed By: #### L 500.4100, L3890.6301, L501.9520, L506.1001, L500.4050, L100.0100 ####[facility] [address] [place], [address] Triglyceride [Mass/Vol] 111 mg/dL Normal [facility] Comment on above: Result Comment: The drugs N-Acetylcysteine and Metamizole may falsely depress this assay. Normal range: <150 mg/dL Borderline High: 150-199 mg/dL High: 200-499 mg/dL Very High: >500 mg/dL Performed By: #### L 500.4100, L3890.6301, L501.9520, L506.1001, L500.4050, L100.0100 ####[facility] [address] [place], [address] Thyroid Stim Hormone (TSH)on 10-16-2024 TSH 1.190 uIU/mL Normal 0.300-4.200 [facility] Comment on above: Performed By: #### L 500.4100, L3890.6301, L501.9520, L506.1001, L500.4050, L100.0100 ####[facility] [address] [place], [address] Vitamin D,25 Hydroxyon 10-16 Vitamin D 25-OH 41.9 ng/mL Normal 30-100 [facility] Comment on above: Result Comment: Adina min D Status Deficiency: <20 ng/mL (50nmol/L) Insufficiency: 20-30 ng/mL (50-75 nmol/L) Sufficiency: 30-100 ng/mL (75-250 nmol/L) Toxicity: >100 ng/mL (>250 nmol/L) Performed By: #### L 500.4100, L3890.6301, L501.9520, L506.1001, L500.4050, L100.0100 ####[facility] [address] [place], [address] Calprotectin, Stoolon [address] 67 ug/g Normal 0-120 [facility] Comment on above: Result Comment: Conc entration Interpretation Follow-Up < 5 - 50 ug/g Normal None >50 -120 ug/g Borderline Re-evaluate in 4-6 weeks >120 ug/g Abnormal Repeat as clinically indicated Performed at: - [address] [id number] [employer] Log: Tomi Wilson MD, Phone: [phone] Performed By: #### L 100.0100, L500.4050 #### [facility] Laboratory [address] [place], [address] 12 Lead EKGon 10-14-2024 12 Lead EKG [facility] Cardiovascular Services [address] [place] [address] 12 Lead EKG 10/14/24 1614 MR#: [id number] Acct: [id number] Name: ALISON SANTACRUZ Rep #: [id number] : 1940 84 From: Alexis Stovall MD [...] Otherwise normal ECG Confirmed by Alexis Stovall ([id number]), editor dictionary MELITA WILLOUGHBY ([id number]) on 10/15/2024 11:42:39 AM Referred By: Confirmed By: Alexis Stovall 10/15/24 1142 Date Alexis Stovall MD CC: Dr. Eddie Waggoner MD; Dr. Vasyl Middleton DO Signed Normal [facility] Abdomen/Pelvis W IV Cont ONL Yon 10-14-2024 Abdomen/Pelvis W IV Cont ONLY [facility] Imaging Services [address] [place] [id number] Abdomen/Pelvis W IV Cont ONLY MR#: [id number] Acct: [id number] Name: ALISON SANTACRUZ Rep #: [id number] : 1940 F 84 From: José Osborne MD PCP: Dr. Eddie Waggoner MD Status: REG ER Study: Abdomen/Pelvis W IV Cont ONLY Date of Exam: Exam# [id number] Ordering Dr: Vasyl Middleton DO PROCEDURE: ABDOMEN/PELVIS [...] of the abdomen or pelvis. Reading Location: [facility] CC: Dr. Eddie Waggoner MD; Dr. Vasyl Middleton DO Barrel Drum Cutter: Signed Normal [facility] CBC W/Diff, Automatedon 10-04 Absolute Lymph 0.96 X10 3/uL Normal 0.83-4.51 [facility] Comment on above: Performed By: #### L 100.0100, L500.4050 #### [facility] [address] [place], [address] Absolute Neut 2.0 X10 3/uL Normal 2.0-7.7 [facility] Comment on above: Performed By: #### L 100.0100, L500.4050 #### [facility] [address] [place], [address] Basophils/100 WBC (Bld) 0.9 % Normal 0-1 [facility] Comment on above: Performed By: #### L 100.0100, L500.4050 #### [facility] [address] [place], [address] Eosinophils/100 WBC (Bld) 1.8 % Normal 0-5 [facility] Comment on above: Performed By: #### L 100.0100, L500.4050 #### [facility] [address] [place], [address] Erythrocyte distribution width (RBC) [Ratio] 11.9 % Normal 11.6-14.6 [facility] Comment on above: Performed By: #### L 100.0100, L500.4050 #### [facility] [address] [place], [address] Hematocrit (Bld) [Volume fraction] 35.0 % Low 37-47 [facility] Comment on above: Performed By: #### L 100.0100, L500.4050 #### [facility] [address] [place], [address] Hemoglobin (Bld) [Mass/Vol] 12.0 g/dL Normal 12.0-15.0 [facility] Comment on above: Performed By: #### L 100.0100, L500.4050 #### [facility] [address] [place], [address] IG% 0.600 Normal 0.0-0.9 [facility] Comment on above: Result Comment: IG% - Immature Granulocytes (promyelocytes, myelocytes and metamyelocytes) > 1% indicates that a LEFT SHIFT is Present. Performed By: #### L 100.0100, L500.4050 #### [facility] [address] [place], [address] Lymphocytes/100 WBC (Bld) 28.4 % Normal 19-41 [facility] Comment on above: Performed By: #### L 100.0100, L500.4050 #### [facility] [address] [place], [address] MCH (RBC) [Entitic mass] 30.5 pg Normal 27.0-32.0 [facility] Comment on above: Performed By: #### L 100.0100, L500.4050 #### [facility] [address] [place], [address] MCHC (RBC) [Mass/Vol] 34.3 g/dL Normal 32-36 [facility] Comment on above: Performed By: #### L 100.0100, L500.4050 #### [facility] [address] [place], [address] MCV (RBC) [Entitic vol] 88.8 fL Normal 81-99 [facility] Comment on above: Performed By: #### L 100.0100, L500.4050 #### [facility] [address] [place], [address] Monocytes/100 WBC (Bld) 8.6 % Normal 0-10 [facility] Comment on above: Performed By: #### L 100.0100, L500.4050 #### [facility] [address] [place], [address] Neutrophils/100 WBC (Bld) 59.7 % Normal 47-70 [facility] Comment on above: Performed By: #### L 100.0100, L500.4050 #### [facility] [address] [place], [address] Nucleated RBC (Bld) [#/Vol] 0 10*3/uL Normal 0-5 [facility] Comment on above: Performed By: #### L 100.0100, L500.4050 #### [facility] [address] [place], [address] Platelet mean volume (Bld) [Entitic vol] 8.4 fL Normal 6.2-12.0 [facility] Comment on above: Performed By: #### L 100.0100, L500.4050 #### [facility] [address] [place], [address] Platelets (Bld) [#/Vol] 170 10*3/uL Normal 150-450 [facility] Comment on above: Performed By: #### L 100.0100, L500.4050 #### [facility] [address] [place], [address] RBC (Bld) [#/Vol] 3.94 10*6/uL Low 4.2-5.4 [facility] Comment on above: Performed By: #### L 100.0100, L500.4050 #### [facility] [address] [place], [address] RDW SD 38.3 fl Normal 35.1-43.9 [facility] Comment on above: Performed By: #### L 100.0100, L500.4050 #### [facility] [address] [place], [address] WBC (Bld) [#/Vol] 3.4 10*3/uL Low 4.4-11.0 [facility] Comment on above: Performed By: #### L 100.0100, L500.4050 #### [facility] [address] [place], [address] [facility] 10-14-2024 Albumin [Mass/Vol] 4.5 g/dL Normal 3.4-4.8 [facility] Comment on above: Performed By: #### L 100.0100, L500.4050 #### [facility] [address] [place], [address] Albumin/Globulin [Mass ratio] 1.9 {ratio} Normal 0.9-2.4 [facility] Comment on above: Performed By: #### L 100.0100, L500.4050 #### [facility] [address] [place], [address] ALK PHOS 64 U/L Normal 35-104 [facility] Comment on above: Performed By: #### L 100.0100, L500.4050 #### [facility] [address] [place], [address] ALT [Catalytic activity/Vol] 16 U/L Normal <=34 [facility] Comment on above: Performed By: #### L 100.0100, L500.4050 #### [facility] [address] [place], [address] AST [Catalytic activity/Vol] 20 U/L Normal <=31 [facility] Comment on above: Performed By: #### L 100.0100, L500.4050 #### [facility] [address] [place], [address] Bilirubin [Mass/Vol] 0.85 mg/dL Normal 0.00-1.30 [facility] Comment on above: Performed By: #### L 100.0100, L500.4050 #### [facility] [address] [place], [address] BUN/CRE 12.4 RATIO Normal 10-20 [facility] Comment on above: Performed By: #### L 100.0100, L500.4050 #### [facility] [address] [place], [address] Calcium [Mass/Vol] 9.3 mg/dL Normal 7.6-11.0 [facility] Comment on above: Performed By: #### L 100.0100, L500.4050 #### [facility] [address] [place], [address] Chloride [Moles/Vol] 102 mmol/L Normal 98-108 [facility] Comment on above: Performed By: #### L 100.0100, L500.4050 #### [facility] [address] [place], [address] CO2 [Moles/Vol] 23.2 mmol/L Normal 21.0-32.0 [facility] Comment on above: Performed By: #### L 100.0100, L500.4050 #### [facility] [address] [place], [address] Creatinine [Mass/Vol] 0.82 mg/dL Normal 0.70-1.20 [facility] Comment on above: Performed By: #### L 100.0100, L500.4050 #### [facility] [address] [place], [address] ECRCL 49.95 ml/min Low 50-250 [facility] Comment on above: Performed By: #### L 100.0100, L500.4050 #### [facility] [address] [place], [address] GAP 14 Normal 5-15 [facility] Comment on above: Performed By: #### L 100.0100, L500.4050 #### [facility] [address] [place], [address] GFR/1.73 sq M.predicted among non-blacks MDRD (S/P/Bld) [Vol rate/Area] 70 mL/min/{1.73_m2} Normal >60 [facility] Comment on above: Result Comment: mL/m in/1.73m2 CKD-EPI Creatinine Equation (2020) Performed By: #### L 100.0100, L500.4050 #### [facility] [address] [place], [address] Globulin (S) [Mass/Vol] 2.4 g/dL Normal 2.2-4.2 [facility] Comment on above: Performed By: #### L 100.0100, L500.4050 #### [facility] [address] [place], [address] Glucose [Mass/Vol] 88 mg/dL Normal 70-99 [facility] Comment on above: Performed By: #### L 100.0100, L500.4050 #### [facility] [address] [place], [address] Potassium [Moles/Vol] 4.0 mmol/L Normal 3.3-5.1 [facility] Comment on above: Performed By: #### L 100.0100, L500.4050 #### [facility] [address] [place], [address] Sodium [Moles/Vol] 139 mmol/L Normal 133-145 [facility] Comment on above: Performed By: #### L 100.0100, L500.4050 #### [facility] [address] [place], [address] T PROT 6.9 g/dL Normal 5.9-8.4 [facility] Comment on above: Performed By: #### L 100.0100, L500.4050 #### [facility] [address] [place], [address] Urea nitrogen [Mass/Vol] 10 mg/dL Normal 4-19 [facility] Comment on above: Performed By: #### L 100.0100, L500.4050 #### [facility] [address] [place], [address] Emergency Department Summary on 10-14-2024 Emergency Department Summary [facility] Medical Records Department [address] [place] [address] Emergency Department Summary 10/14/24 MR#: [id number] Acct: [id number] Name: ALISON SANTACRUZ Rep #: [id number] : 1940 84 From: Vasyl Middleton DO [...] she followed up with Dr. Shook's physician assistant manager bilingual and they prescribed her some medications which do not appear to be helping. [facility] Medical History Arthritis Gastric reflux Wears hearing [...] Verified 10/14/24 15:37 paroxetine (From Paxil) AdvReac Qulin poorly Verified 10/14/24 15:37 rosuvastatin (From Crestor) [...] urinary symptom (more content not included)... Normal [facility] Giardia Lamblia, Stool EIAon 10-14-2024 Giardia Stool Negative Normal Negative [facility] Comment on above: Result Comment: Perf ormed at: [facility] [id number] [place] Log: Tomi Wilson MD, Phone: [phone] Performed at: [facility] [id number] [place] Log: Remi Davis PhD, Phone: [phone] Performed By: #### L 100.0100, L500.4050 #### [facility] [address] [place], [address] L7000.0750on 10-14-2024 P ELASTASE,FECA 258 Normal >200 [facility] Comment on above: Result Comment: Resu lt Units: ug Elast./g Severe Pancreatic Insufficiency: <100 Moderate Pancreatic Insufficiency: 100 - 200 Normal: >200 Performed By: #### L 100.0100, L500.4050 #### [facility] [address] [place], [address] Lipaseon 10-14-2024 Lipase [Catalytic activity/Vol] 21 U/L Normal 13-75 [facility] Comment on above: Result Comment: Plea se note: LIPASE revised reference range effective 22. New Lipase methodology. Expected to produce lower values than the previous assay method. NEW Reference Range: 13 - 75 U/L Performed By: #### L 100.0100, L500.4050 #### [facility] [address] [place], [address] M100.677on 10-14-2024 M100.677 Negative Normal [facility] Comment on above: Performed By: #### M 100.678, M100.677 ####[facility] [address] [place], [address] M100.678on 10-14-2024 M100.678 Pending SARS-CoV-2 (COVID 19) Negative INFLUENZA A Negative INFLUENZA B Negative RSV PCR Negative Normal [facility] Comment on above: Performed By: #### M 100.678, M100.677 ####[facility] [address] [place], [address] Urinalysis, Completeon 10-14 EPI,SQUAMOUS 0-5 SEEN Normal 5-10 [facility] Comment on above: Order Comment: CLEAN CATCH Performed By: #### L 100.0100, L500.4050 #### [facility] [address] [place], [address] RBC 0-5 SEEN Normal 0-5 [facility] Comment on above: Order Comment: CLEAN CATCH Performed By: #### L 100.0100, L500.4050 #### [facility] [address] [place], [address] WBC 0-5 SEEN Normal 0-5 [facility] Comment on above: Order Comment: CLEAN CATCH Performed By: #### L 100.0100, L500.4050 #### [facility] [address] [place], [address] BACTERIA 0 SEEN Normal None Seen [facility] Comment on above: Order Comment: CLEAN CATCH Performed By: #### L 100.0100, L500.4050 #### [facility] [address] [place], [address] Mucus Ql (Urine sed) 0 SEEN Normal [facility] Comment on above: Order Comment: CLEAN CATCH Performed By: #### L 100.0100, L500.4050 #### [facility] [address] [place], [address] CDIFF (PCR)on 10-12-2024 CDIFF Pending 027 027 NAP1-B1 Presumptive Negative *for epidemiolologic???use C. Diff PCR Negative- No toxigenic C. Diff Detected Normal [facility] Comment on above: Performed By: #### L 100.0100, L500.4050 #### [facility] [address] [place], [address] CBC W/Diff, Automatedon 08-0 8-2024 Absolute Lymph 0.79 X10 3/uL Low 0.83-4.51 [facility] Comment on above: Performed By: #### L 100.0100, L500.4050 #### [facility] [address] [place], [address] Absolute Neut 2.3 X10 3/uL Normal 2.0-7.7 [facility] Comment on above: Performed By: #### L 100.0100, L500.4050 #### [facility] [address] [place], [address] Basophils/100 WBC (Bld) 0.9 % Normal 0-1 [facility] Comment on above: Performed By: #### L 100.0100, L500.4050 #### [facility] [address] [place], [address] Eosinophils/100 WBC (Bld) 1.7 % Normal 0-5 [facility] Comment on above: Performed By: #### L 100.0100, L500.4050 #### [facility] [address] [place], [address] Erythrocyte distribution width (RBC) [Ratio] 11.8 % Normal 11.6-14.6 [facility] Comment on above: Performed By: #### L 100.0100, L500.4050 #### [facility] [address] [place], [address] Hematocrit (Bld) [Volume fraction] 35.2 % Low 37-47 [facility] Comment on above: Performed By: #### L 100.0100, L500.4050 #### [facility] [address] [place], [address] Hemoglobin (Bld) [Mass/Vol] 11.9 g/dL Low 12.0-15.0 [facility] Comment on above: Performed By: #### L 100.0100, L500.4050 #### [facility] [address] [place], [address] IG% 0.600 Normal 0.0-0.9 [facility] Comment on above: Result Comment: IG% - Immature Granulocytes (promyelocytes, myelocytes and metamyelocytes) > 1% indicates that a LEFT SHIFT is Present. Performed By: #### L 100.0100, L500.4050 #### [facility] [address] [place], [address] Lymphocytes/100 WBC (Bld) 22.5 % Normal 19-41 [facility] Comment on above: Performed By: #### L 100.0100, L500.4050 #### [facility] [address] [place], [address] MCH (RBC) [Entitic mass] 30.5 pg Normal 27.0-32.0 [facility] Comment on above: Performed By: #### L 100.0100, L500.4050 #### [facility] [address] [place], [address] MCHC (RBC) [Mass/Vol] 33.8 g/dL Normal 32-36 [facility] Comment on above: Performed By: #### L 100.0100, L500.4050 #### [facility] [address] [place], [address] MCV (RBC) [Entitic vol] 90.3 fL Normal 81-99 [facility] Comment on above: Performed By: #### L 100.0100, L500.4050 #### [facility] [address] [place], [address] Monocytes/100 WBC (Bld) 7.7 % Normal 0-10 [facility] Comment on above: Performed By: #### L 100.0100, L500.4050 #### [facility] [address] [place], [address] Neutrophils/100 WBC (Bld) 66.6 % Normal 47-70 [facility] Comment on above: Performed By: #### L 100.0100, L500.4050 #### [facility] [address] [place], [address] Nucleated RBC (Bld) [#/Vol] 0 10*3/uL Normal 0-5 [facility] Comment on above: Performed By: #### L 100.0100, L500.4050 #### [facility] [address] [place], [address] Platelet mean volume (Bld) [Entitic vol] 8.2 fL Normal 6.2-12.0 [facility] Comment on above: Performed By: #### L 100.0100, L500.4050 #### [facility] [address] [place], [address] Platelets (Bld) [#/Vol] 163 10*3/uL Normal 150-450 [facility] Comment on above: Performed By: #### L 100.0100, L500.4050 #### [facility] [address] [place], [address] RBC (Bld) [#/Vol] 3.90 10*6/uL Low 4.2-5.4 [facility] Comment on above: Performed By: #### L 100.0100, L500.4050 #### [facility] [address] [place], [address] RDW SD 38.6 fl Normal 35.1-43.9 [facility] Comment on above: Performed By: #### L 100.0100, L500.4050 #### [facility] [address] [place], [address] WBC (Bld) [#/Vol] 3.5 10*3/uL Low 4.4-11.0 [facility] Comment on above: Performed By: #### L 100.0100, L500.4050 #### [facility] [address] [place], [address] Comprehensive Metabolic Prof ilon 10-11-2024 Albumin [Mass/Vol] 4.5 g/dL Normal 3.4-4.8 [facility] Comment on above: Performed By: #### L 100.0100, L500.4050 #### [facility] [address] [place], [address] Albumin/Globulin [Mass ratio] 1.8 {ratio} Normal 0.9-2.4 [facility] Comment on above: Performed By: #### L 100.0100, L500.4050 #### [facility] [address] [place], [address] ALK PHOS 66 U/L Normal 35-104 [facility] Comment on above: Performed By: #### L 100.0100, L500.4050 #### [facility] [address] [place], [address] ALT [Catalytic activity/Vol] 16 U/L Normal <=34 [facility] Comment on above: Performed By: #### L 100.0100, L500.4050 #### [facility] [address] [place], [address] AST [Catalytic activity/Vol] 22 U/L Normal <=31 [facility] Comment on above: Performed By: #### L 100.0100, L500.4050 #### [facility] [address] [place], [address] Bilirubin [Mass/Vol] 1.07 mg/dL Normal 0.00-1.30 [facility] Comment on above: Performed By: #### L 100.0100, L500.4050 #### [facility] [address] [place], [address] BUN/CRE 14.3 RATIO Normal 10-20 [facility] Comment on above: Performed By: #### L 100.0100, L500.4050 #### [facility] [address] [place], [address] Calcium [Mass/Vol] 9.3 mg/dL Normal 7.6-11.0 [facility] Comment on above: Performed By: #### L 100.0100, L500.4050 #### [facility] [address] [place], [address] Chloride [Moles/Vol] 99 mmol/L Normal 98-108 [facility] Comment on above: Performed By: #### L 100.0100, L500.4050 #### [facility] [address] [place], [address] CO2 [Moles/Vol] 24.3 mmol/L Normal 21.0-32.0 [facility] Comment on above: Performed By: #### L 100.0100, L500.4050 #### [facility] [address] [place], [address] Creatinine [Mass/Vol] 0.80 mg/dL Normal 0.70-1.20 [facility] Comment on above: Performed By: #### L 100.0100, L500.4050 #### [facility] [address] [place], [address] GAP 13 Normal 5-15 [facility] Comment on above: Performed By: #### L 100.0100, L500.4050 #### [facility] [address] [place], [address] GFR/1.73 sq M.predicted among non-blacks MDRD (S/P/Bld) [Vol rate/Area] 71 mL/min/{1.73_m2} Normal >60 [facility] Comment on above: Result Comment: mL/m in/1.73m2 CKD-EPI Creatinine Equation (2020) Performed By: #### L 100.0100, L500.4050 #### [facility] [address] [place], [address] Globulin (S) [Mass/Vol] 2.4 g/dL Normal 2.2-4.2 [facility] Comment on above: Performed By: #### L 100.0100, L500.4050 #### [facility] [address] [place], [address] Glucose [Mass/Vol] 99 mg/dL Normal 70-99 [facility] Comment on above: Performed By: #### L 100.0100, L500.4050 #### [facility] [address] [place], [address] Potassium [Moles/Vol] 4.1 mmol/L Normal 3.3-5.1 [facility] Comment on above: Performed By: #### L 100.0100, L500.4050 #### [facility] [address] [place], [address] Sodium [Moles/Vol] 136 mmol/L Normal 133-145 [facility] Comment on above: Performed By: #### L 100.0100, L500.4050 #### [facility] [address] [place], [address] T PROT 6.9 g/dL Normal 5.9-8.4 [facility] Comment on above: Performed By: #### L 100.0100, L500.4050 #### [facility] [address] [place], [address] Urea nitrogen [Mass/Vol] 12 mg/dL Normal 4-19 [facility] Comment on above: Performed By: #### L 100.0100, L500.4050 #### [facility] [address] [place], [address] Gastroenterology Visit Repor ton 10-11-2024 Gastroenterology Visit Report [facility] Gastroenterology [address] [place] [address] OFFICE VISIT Date of Service: 10/11/24 MR#: [id number] Acct: [id number] Name: ALISON SANTACRUZ Rep #: [id number] : 1940 Provider: LIZZETTE Edwards Age/Sex: 84/F Location: [facility] Status: Signed Intake Vital Signs 10/06/24 13:13 Height 5 ft 6 in Intake Visit Reasons: ER FU ABDOMINAL PAIN PRESSURE LOWER BACK PAIN Chief Complaint: abdominal pain Allergies Iodinated Contrast Media Allergy (Verified 10/06/24 13:15) Rash atorvastatin (From Lipitor) Adverse Reaction (Verified 10/06/24 13:15) Upset Stomach bupropion (From Wellbutrin) Adverse Reaction (Verified 10/06/24 13:15) Other paroxetine (From Paxil) Adverse Reaction (Verified 10/06/24 13:15) Qulin poorly rosuvastatin (From Crestor) Adverse Reaction (Verified 10/06/24 13:15) Upset Stomach sertraline (From Zoloft) Adverse Reaction (Verified 10/06/24 13:15) Other simvastatin (From Zocor) Adverse Reaction (Verified 10/06/24 13:15) Upset Stomach Have you fallen in the past year?: No Nurse's Note: OV 10/11/24 Pt here for a f/u and reports nausea, abdominal pain, dark stools, and heartburn. [facility] Medical History Arthritis Gastric reflux Wears hearing [...] first portion of the duodenum. Biopsied. OV 3.25; Pt continues with daily nausea, back pain, [...] to lack of appetite. CT abd pelvis 425; . Bilateral basilar atelectatic pulmonary changes. 2. [...] 12. Moderate diffuse spondylosis. GES; not completed [facility] ED 8.3.25 for abd pain. WOrk up largely unremarkeble CT abd/pelvis No acute process detected. Other findings as above. OV 8.8.25 patient having abdominal pain, nausea dry heaving and general malaise over the past week. She contacted her primar (more content not included)... Normal [facility] Abdomen/Pelvis W IV Cont ONL Yon 10-06-2024 Abdomen/Pelvis W IV Cont ONLY [facility] Imaging Services [address] [place] [address] [id number] Abdomen/Pelvis W IV Cont ONLY MR#: [id number] Acct: [id number] Name: ALISON SANTACRUZ Rep #: [id number] : 1940 F 84 From: Milo Holloway DO PCP: Dr. Eddie Waggoner MD Status: REG ER Study: Abdomen/Pelvis W IV Cont ONLY Date of Exam: Exam# [id number] Ordering Dr: Chris Phillips DO PROCEDURE: ABDOMEN/PELVIS [...] detected. Other findings as above. Reading [facility] CC: Dr. Chris Phillips, DO; Dr. Eddie Waggoner MD Barrel Drum Cutter: Signed Normal [facility] CBC W/Diff, Automatedon 08-0 Absolute Lymph 1.12 X10 3/uL Normal 0.83-4.51 [facility] Comment on above: Performed By: #### L 100.0100, L501.2450, L500.4050 #### [facility] Laboratory [address] [place], [address] Absolute Neut 2.7 X10 3/uL Normal 2.0-7.7 [facility] Comment on above: Performed By: #### L 100.0100, L501.2450, L500.4050 #### [facility] Laboratory [address] [place], [address] Basophils/100 WBC (Bld) 0.7 % Normal 0-1 [facility] Comment on above: Performed By: #### L 100.0100, L501.2450, L500.4050 #### [facility] Laboratory [address] [place], [address] Eosinophils/100 WBC (Bld) 3.5 % Normal 0-5 [facility] Comment on above: Performed By: #### L 100.0100, L501.2450, L500.4050 #### [facility] Laboratory [address] [place], [address] Erythrocyte distribution width (RBC) [Ratio] 11.9 % Normal 11.6-14.6 [facility] Comment on above: Performed By: #### L 100.0100, L501.2450, L500.4050 #### [facility] Laboratory [address] [place], [address] Hematocrit (Bld) [Volume fraction] 34.6 % Low 37-47 [facility] Comment on above: Performed By: #### L 100.0100, L501.2450, L500.4050 #### [facility] Laboratory [address] [place], [address] Hemoglobin (Bld) [Mass/Vol] 12.0 g/dL Normal 12.0-15.0 [facility] Comment on above: Performed By: #### L 100.0100, L501.2450, L500.4050 #### [facility] Laboratory [address] [place], [address] IG% 0.500 Normal 0.0-0.9 [facility] Comment on above: Result Comment: IG% - Immature Granulocytes (promyelocytes, myelocytes and metamyelocytes) > 1% indicates that a LEFT SHIFT is Present. Performed By: #### L 100.0100, L501.2450, L500.4050 #### [facility] Laboratory [address] [place], [address] Lymphocytes/100 WBC (Bld) 26.3 % Normal 19-41 [facility] Comment on above: Performed By: #### L 100.0100, L501.2450, L500.4050 #### [facility] Laboratory [address] [place], [address] MCH (RBC) [Entitic mass] 30.9 pg Normal 27.0-32.0 [facility] Comment on above: Performed By: #### L 100.0100, L501.2450, L500.4050 #### [facility] Laboratory [address] [place], [address] MCHC (RBC) [Mass/Vol] 34.7 g/dL Normal 32-36 [facility] Comment on above: Performed By: #### L 100.0100, L501.2450, L500.4050 #### [facility] Laboratory [address] [place], [address] MCV (RBC) [Entitic vol] 89.2 fL Normal 81-99 [facility] Comment on above: Performed By: #### L 100.0100, L501.2450, L500.4050 #### [facility] Laboratory [address] [place], [address] Monocytes/100 WBC (Bld) 6.3 % Normal 0-10 [facility] Comment on above: Performed By: #### L 100.0100, L501.2450, L500.4050 #### [facility] Laboratory [address] [place], [address] Neutrophils/100 WBC (Bld) 62.7 % Normal 47-70 [facility] Comment on above: Performed By: #### L 100.0100, L501.2450, L500.4050 #### [facility] Laboratory [address] [place], [address] Nucleated RBC (Bld) [#/Vol] 0 10*3/uL Normal 0-5 [facility] Comment on above: Performed By: #### L 100.0100, L501.2450, L500.4050 #### [facility] Laboratory [address] [place], [address] Platelet mean volume (Bld) [Entitic vol] 8.3 fL Normal 6.2-12.0 [facility] Comment on above: Performed By: #### L 100.0100, L501.2450, L500.4050 #### [facility] Laboratory [address] [place], [address] Platelets (Bld) [#/Vol] 170 10*3/uL Normal 150-450 [facility] Comment on above: Performed By: #### L 100.0100, L501.2450, L500.4050 #### [facility] Laboratory [address] [place], [address] RBC (Bld) [#/Vol] 3.88 10*6/uL Low 4.2-5.4 [facility] Comment on above: Performed By: #### L 100.0100, L501.2450, L500.4050 #### [facility] Laboratory [address] [place], [address] RDW SD 38.3 fl Normal 35.1-43.9 [facility] Comment on above: Performed By: #### L 100.0100, L501.2450, L500.4050 #### [facility] Laboratory [address] [place], [address] WBC (Bld) [#/Vol] 4.3 10*3/uL Low 4.4-11.0 [facility] Comment on above: Performed By: #### L 100.0100, L501.2450, L500.4050 #### [facility] Laboratory [address] [place], [address] [facility] 10-06-2024 Albumin [Mass/Vol] 4.4 g/dL Normal 3.4-4.8 [facility] Comment on above: Performed By: #### L 100.0100, L501.2450, L500.4050 #### [facility] Laboratory [address] [place], [address] Albumin/Globulin [Mass ratio] 1.9 {ratio} Normal 0.9-2.4 [facility] Comment on above: Performed By: #### L 100.0100, L501.2450, L500.4050 #### [facility] Laboratory [address] [place], [address] ALK PHOS 73 U/L Normal 35-104 [facility] Comment on above: Performed By: #### L 100.0100, L501.2450, L500.4050 #### [facility] [address] [place], [address] ALT [Catalytic activity/Vol] 16 U/L Normal <=34 [facility] Comment on above: Performed By: #### L 100.0100, L501.2450, L500.4050 #### [facility] Laboratory [address] [place], [address] AST [Catalytic activity/Vol] 18 U/L Normal <=31 [facility] Comment on above: Performed By: #### L 100.0100, L501.2450, L500.4050 #### [facility] Laboratory [address] [place], [address] Bilirubin [Mass/Vol] 0.77 mg/dL Normal 0.00-1.30 [facility] Comment on above: Performed By: #### L 100.0100, L501.2450, L500.4050 #### [facility] [address] [place], [address] BUN/CRE 15.2 RATIO Normal 10-20 [facility] Comment on above: Performed By: #### L 100.0100, L501.2450, L500.4050 #### [facility] Laboratory [address] [place], [address] Calcium [Mass/Vol] 9.1 mg/dL Normal 7.6-11.0 [facility] Comment on above: Performed By: #### L 100.0100, L501.2450, L500.4050 #### [facility] [address] [place], [address] Chloride [Moles/Vol] 100 mmol/L Normal 98-108 [facility] Comment on above: Performed By: #### L 100.0100, L501.2450, L500.4050 #### [facility] Laboratory [address] [place], [address] CO2 [Moles/Vol] 25.6 mmol/L Normal 21.0-32.0 [facility] Comment on above: Performed By: #### L 100.0100, L501.2450, L500.4050 #### [facility] Laboratory [address] [place], [address] Creatinine [Mass/Vol] 0.83 mg/dL Normal 0.70-1.20 [facility] Comment on above: Performed By: #### L 100.0100, L501.2450, L500.4050 #### [facility] Laboratory [address] [place], [address] ECRCL 49.58 ml/min Low 50-250 [facility] Comment on above: Performed By: #### L 100.0100, L501.2450, L500.4050 #### [facility] Laboratory [address] [place], [address] GAP 11 Normal 5-15 [facility] Comment on above: Performed By: #### L 100.0100, L501.2450, L500.4050 #### [facility] Laboratory [address] [place], [address] GFR/1.73 sq M.predicted among non-blacks MDRD (S/P/Bld) [Vol rate/Area] 69 mL/min/{1.73_m2} Normal >60 [facility] Comment on above: Result Comment: mL/m in/1.73m2 CKD-EPI Creatinine Equation (2020) Performed By: #### L 100.0100, L501.2450, L500.4050 #### [facility] Laboratory [address] [place], [address] Globulin (S) [Mass/Vol] 2.4 g/dL Normal 2.2-4.2 [facility] Comment on above: Performed By: #### L 100.0100, L501.2450, L500.4050 #### [facility] Laboratory [address] [place], [address] Glucose [Mass/Vol] 121 mg/dL High 70-99 [facility] Comment on above: Performed By: #### L 100.0100, L501.2450, L500.4050 #### [facility] Laboratory [address] [place], [address] Potassium [Moles/Vol] 4.0 mmol/L Normal 3.3-5.1 [facility] Comment on above: Performed By: #### L 100.0100, L501.2450, L500.4050 #### [facility] [address] [place], [address] Sodium [Moles/Vol] 137 mmol/L Normal 133-145 [facility] Comment on above: Performed By: #### L 100.0100, L501.2450, L500.4050 #### [facility] [address] [place], [address] T PROT 6.8 g/dL Normal 5.9-8.4 [facility] Comment on above: Performed By: #### L 100.0100, L501.2450, L500.4050 #### [facility] Laboratory [address] [place], [address] Urea nitrogen [Mass/Vol] 13 mg/dL Normal 4-19 [facility] Comment on above: Performed By: #### L 100.0100, L501.2450, L500.4050 #### [facility] Laboratory [address] [place], [address] Emergency Department Summary on 10-06-2024 Emergency Department Summary [facility] Medical Records Department [address] [place] [address] Emergency Department Summary 10/06/24 MR#: [id number] Acct: [id number] Name: ALISON SANTACRUZ Rep #: [id number] : 1940 84 From: Chris Phillips DO [...] intact Psych: Cooperative, appropriate mood and affect [facility] Medical History Arthritis Gastric reflux Wears hearing [...] DAILY 07/14/22 12/15/23 Hi story glucosamine 750 eh-osakaoakhjt-tuf 1 tab PO DAILY 07/14/22 04/15/24 History [...] AdvReac Fel (more content not included)... Normal [facility] Lipaseon 10-06-2024 Lipase [Catalytic activity/Vol] 23 U/L Normal 13-75 [facility] Comment on above: Result Comment: Yuko joseph note: LIPASE revised reference range effective 22. New Lipase methodology. Expected to produce lower values than the previous assay method. NEW Reference Range: 13 - 75 U/L Performed By: #### L 100.0100, L501.2450, L500.4050 #### [facility] Laboratory [address] [place], [address] Stool Occult Blood iFOBon STOB Positive Normal [facility] Comment on above: Performed By: #### L 100.0100, L500.4050 #### [facility] Laboratory [address] [place], [address] Urinalysis, Completeon 10-06 BACTERIA 0 SEEN Normal None Seen [facility] Comment on above: Order Comment: COLLE CTOR TO SPECIFY Performed By: #### L 100.0100, L501.2450, L500.4050 #### [facility] Laboratory [address] [place], [address] EPI,SQUAMOUS 0 SEEN Normal 5-10 [facility] Comment on above: Order Comment: COLLE CTOR TO SPECIFY Performed By: #### L 100.0100, L501.2450, L500.4050 #### [facility] Laboratory [address] [place], [address] Mucus Ql (Urine sed) 0 SEEN Normal [facility] Comment on above: Order Comment: COLLE CTOR TO SPECIFY Performed By: #### L 100.0100, L501.2450, L500.4050 #### [facility] Laboratory [address] [place], [address] RBC 0 SEEN Normal 0-5 [facility] Comment on above: Order Comment: COLLE CTOR TO SPECIFY Performed By: #### L 100.0100, L501.2450, L500.4050 #### [facility] Laboratory [address] [place], [address] WBC 0 SEEN Normal 0-5 [facility] Comment on above: Order Comment: COLLE CTOR TO SPECIFY Performed By: #### L 100.0100, L501.2450, L500.4050 #### [facility] Laboratory [address] [place], [address] CNOVon 10-05-2024 CNOV Office Visit ([facility]) ALISON SANTACRUZ ([id number]) 1940 F Date Time Provider Department 10/05/24 2:15 PM DAVID ROCHA During your visit today, we recorded the following information about you: Temperature Pulse Respiration Blood pressure 99.4 degrees 85/minute 18/minute 122/78 Weight 72.2 kg David Rocha MD 10/05/2024 2:54 PM Signed [facility] Zeynep Quintanilla Shonna Santacruz is a 84 year [...] As of Date: 10/05/2024 Noted Allergy Reaction [id number] REDUCTASE INHIBIT*10/05/2024 5 - Intolerance Date Reviewed: [...] Status:Closed by DAVID ROCHA on 10/05/24 Normal [facility] Shoulder min 2 Viewson 07-30 Shoulder min 2 Views [facility] Imaging Services [address] [place], [place] [id number] Shoulder min 2 Views MR#: [id number] Acct: [id number] Name: ALISON SANTACRUZ Rep #: [id number] : 1940 F 84 From: Zbigniew Martinez MD PCP: Dr. Eddie Waggoner MD Status: REG CLI Study: Shoulder min 2 Views Date of Exam: 07/30/24 Exam# [id number] Ordering Dr: Eddie Waggoner MD PROCEDURE: SHOULDER MIN 2 VIEWS 07/30/2024 REASON FOR EXAM: SHOULDER PAIN X 1 MONTH, NO INJURY TECHNIQUE: Four views right shoulder COMPARISON: None available FINDINGS: No fracture or dislocation. Mild glenohumeral joint osteoarthrosis. Cznr-gj-jhfmwibo acromioclavicular joint osteoarthrosis with a downward directed osteophyte at the distal clavicle suggested. Visualized right lung appears clear. RAD/Shoulder min 2 Views IMPRESSION: Osteoarthrosis as above. Reading Location: [facility] CC: Dr. Eddie Waggoner MD Barrel Drum Cutter: Signed Normal [facility] Abdomen/Pelvis WITH Contrast on 06-20-2024 Abdomen/Pelvis WITH Contrast [facility] Imaging Services [address] [place], [place] [id number] Abdomen/Pelvis WITH Contrast MR#: [id number] Acct: [id number] Name: ALISON SANTACRUZ Rep #: [id number] : 1940 F 83 From: Celia lance MD PCP: Dr. Eddie Waggoner MD Status: REG CLI Study: Abdomen/Pelvis WITH Contrast Date of Exam: Exam# [id number] Ordering Dr: Rajwinder Luis PROCEDURE: ABDOMEN/PELVIS WITH [...] cystitis. 12. Moderate diffuse spondylosis. Reading [facility] CC: Dr. Eddie Waggoner MD; LIZZETTE Edwards Barrel Drum Cutter: Signed Normal [facility] CBC W/Diff, Automatedon 05-05 Absolute Lymph 0.99 X10 3/uL Normal 0.83-4.51 [facility] Comment on above: Performed By: #### L 501.2450, L500.4050, L100.0100 ####[facility] [address] [place], [address] Absolute Neut 1.6 X10 3/uL Low 2.0-7.7 [facility] Comment on above: Performed By: #### L 501.2450, L500.4050, L100.0100 ####[facility] [address] [place], [address] Basophils/100 WBC (Bld) 1.6 % High 0-1 [facility] Comment on above: Performed By: #### L 501.2450, L500.4050, L100.0100 ####[facility] [address] [place], [address] Eosinophils/100 WBC (Bld) 7.2 % High 0-5 [facility] Comment on above: Performed By: #### L 501.2450, L500.4050, L100.0100 ####[facility] [address] [place], [address] Erythrocyte distribution width (RBC) [Ratio] 12.0 % Normal 11.6-14.6 [facility] Comment on above: Performed By: #### L 501.2450, L500.4050, L100.0100 ####[facility] [address] [place], [address] Hematocrit (Bld) [Volume fraction] 37.2 % Normal 37-47 [facility] Comment on above: Performed By: #### L 501.2450, L500.4050, L100.0100 ####[facility] [address] [place], [address] Hemoglobin (Bld) [Mass/Vol] 12.9 g/dL Normal 12.0-15.0 [facility] Comment on above: Performed By: #### L 501.2450, L500.4050, L100.0100 ####[facility] [address] [place], [address] IG% 0.600 Normal 0.0-0.9 [facility] Comment on above: Result Comment: IG% - Immature Granulocytes (promyelocytes, myelocytes and metamyelocytes) > 1% indicates that a LEFT SHIFT is Present. Performed By: #### L 501.2450, L500.4050, L100.0100 ####[facility] [address] [place], [address] Lymphocytes/100 WBC (Bld) 31.1 % Normal 19-41 [facility] Comment on above: Performed By: #### L 501.2450, L500.4050, L100.0100 ####[facility] [address] [place], [address] MCH (RBC) [Entitic mass] 30.6 pg Normal 27.0-32.0 [facility] Comment on above: Performed By: #### L 501.2450, L500.4050, L100.0100 ####[facility] [address] [place], [address] MCHC (RBC) [Mass/Vol] 34.7 g/dL Normal 32-36 [facility] Comment on above: Performed By: #### L 501.2450, L500.4050, L100.0100 ####[facility] [address] [place], [address] MCV (RBC) [Entitic vol] 88.4 fL Normal 81-99 [facility] Comment on above: Performed By: #### L 501.2450, L500.4050, L100.0100 ####[facility] [address] [place], [address] Monocytes/100 WBC (Bld) 10.1 % High 0-10 [facility] Comment on above: Performed By: #### L 501.2450, L500.4050, L100.0100 ####[facility] [address] [place], [address] Neutrophils/100 WBC (Bld) 49.4 % Normal 47-70 [facility] Comment on above: Performed By: #### L 501.2450, L500.4050, L100.0100 ####[facility] [address] [place], [address] Nucleated RBC (Bld) [#/Vol] 0 10*3/uL Normal 0-5 [facility] Comment on above: Performed By: #### L 501.2450, L500.4050, L100.0100 ####[facility] [address] [place], [address] Platelet mean volume (Bld) [Entitic vol] 8.7 fL Normal 6.2-12.0 [facility] Comment on above: Performed By: #### L 501.2450, L500.4050, L100.0100 ####[facility] [address] [place], [address] Platelets (Bld) [#/Vol] 178 10*3/uL Normal 150-450 [facility] Comment on above: Performed By: #### L 501.2450, L500.4050, L100.0100 ####[facility] [address] [place], [address] RBC (Bld) [#/Vol] 4.21 10*6/uL Normal 4.2-5.4 [facility] Comment on above: Performed By: #### L 501.2450, L500.4050, L100.0100 ####[facility] [address] [place], [address] RDW SD 38.6 fl Normal 35.1-43.9 [facility] Comment on above: Performed By: #### L 501.2450, L500.4050, L100.0100 ####[facility] [address] [place], [address] WBC (Bld) [#/Vol] 3.2 10*3/uL Low 4.4-11.0 [facility] Comment on above: Performed By: #### L 501.2450, L500.4050, L100.0100 ####[facility] [address] [place], [address] Comprehensive Metabolic [facility] 05-31-2024 Albumin [Mass/Vol] 4.6 g/dL Normal 3.4-4.8 [facility] Comment on above: Performed By: #### L 501.2450, L500.4050, L100.0100 ####[facility] [address] [place], [address] Albumin/Globulin [Mass ratio] 2.0 {ratio} Normal 0.9-2.4 [facility] Comment on above: Performed By: #### L 501.2450, L500.4050, L100.0100 ####[facility] [address] [place], [address] ALK PHOS 70 U/L Normal 35-104 [facility] Comment on above: Performed By: #### L 501.2450, L500.4050, L100.0100 ####[facility] [address] [place], [address] ALT [Catalytic activity/Vol] 15 U/L Normal <=34 [facility] Comment on above: Performed By: #### L 501.2450, L500.4050, L100.0100 ####[facility] [address] [place], [address] AST [Catalytic activity/Vol] 21 U/L Normal <=31 [facility] Comment on above: Performed By: #### L 501.2450, L500.4050, L100.0100 ####[facility] [address] [place], [address] Bilirubin [Mass/Vol] 0.94 mg/dL Normal 0.00-1.30 [facility] Comment on above: Performed By: #### L 501.2450, L500.4050, L100.0100 ####[facility] [address] [place], [address] BUN/CRE 16.8 RATIO Normal 10-20 [facility] Comment on above: Performed By: #### L 501.2450, L500.4050, L100.0100 ####[facility] [address] [place], [address] Calcium [Mass/Vol] 9.5 mg/dL Normal 7.6-11.0 [facility] Comment on above: Performed By: #### L 501.2450, L500.4050, L100.0100 ####[facility] [address] [place], [address] Chloride [Moles/Vol] 103 mmol/L Normal 98-108 [facility] Comment on above: Performed By: #### L 501.2450, L500.4050, L100.0100 ####[facility] [address] [place], [address] CO2 [Moles/Vol] 22.3 mmol/L Normal 21.0-32.0 [facility] Comment on above: Performed By: #### L 501.2450, L500.4050, L100.0100 ####[facility] [address] [place], [address] GAP 15 Normal 5-15 [facility] Comment on above: Performed By: #### L 501.2450, L500.4050, L100.0100 ####[facility] [address] [place], [address] GFR/1.73 sq M.predicted among non-blacks MDRD (S/P/Bld) [Vol rate/Area] 67 mL/min/{1.73_m2} Normal >60 [facility] Comment on above: Result Comment: mL/m in/1.73m2 CKD-EPI Creatinine Equation (2020) Performed By: #### L 501.2450, L500.4050, L100.0100 ####[facility] [address] [place], [address] Globulin (S) [Mass/Vol] 2.3 g/dL Normal 2.2-4.2 [facility] Comment on above: Performed By: #### L 501.2450, L500.4050, L100.0100 ####[facility] [address] [place], [address] Potassium [Moles/Vol] 4.1 mmol/L Normal 3.3-5.1 [facility] Comment on above: Performed By: #### L 501.2450, L500.4050, L100.0100 ####[facility] [address] [place], [address] Sodium [Moles/Vol] 140 mmol/L Normal 133-145 [facility] Comment on above: Performed By: #### L 501.2450, L500.4050, L100.0100 ####[facility] [address] [place], [address] T PROT 6.9 g/dL Normal 5.9-8.4 [facility] Comment on above: Performed By: #### L 501.2450, L500.4050, L100.0100 ####[facility] [address] [place], [address] Creatinine [Mass/Vol] 0.85 mg/dL Normal 0.70-1.20 [facility] Comment on above: Performed By: #### L 501.2450, L500.4050, L100.0100 ####[facility] [address] [place], [address] Glucose [Mass/Vol] 97 mg/dL Normal 70-99 [facility] Comment on above: Performed By: #### L 501.2450, L500.4050, L100.0100 ####[facility] [address] [place], [address] Urea nitrogen [Mass/Vol] 14 mg/dL Normal 4-19 [facility] Comment on above: Performed By: #### L 501.2450, L500.4050, L100.0100 ####[facility] [address] [place], [address] Gastroenterology Visit Repor ton 05-31-2024 Gastroenterology Visit Report [facility] Gastroenterology [address] [place] [address] OFFICE VISIT Date of Service: 05/31/24 MR#: [id number] Acct: [id number] Name: ALISON SANTACRUZ Rep #: [id number] : 1940 Provider: LIZZETTE Edwards Age/Sex: 83/F Location: [facility] Status: Signed Intake Vital Signs 04/16/24 13:36 Height 5 ft 6 in Intake Visit Reasons: Ongoing issues Chief Complaint: abdominal pain Allergies Iodinated Contrast Media Allergy (Verified 04/16/24 13:29) Rash atorvastatin (From Lipitor) Adverse Reaction (Verified 04/16/24 13:29) Upset Stomach bupropion (From Wellbutrin) Adverse Reaction (Verified 04/16/24 13:29) Other paroxetine (From Paxil) Adverse Reaction (Verified 04/16/24 13:29) Qulin poorly rosuvastatin (From Crestor) Adverse Reaction (Verified [...] taking pantoprazole and dicyclomine daily. [facility] Medical History Arthritis Gastric reflux Wears hearing [...] for itchy (more content not included)... Normal [facility] Lipaseon 05-31-2024 Lipase [Catalytic activity/Vol] 26 U/L Normal 13-75 [facility] Comment on above: Result Comment: Yuko joseph note: LIPASE revised reference range effective 22. New Lipase methodology. Expected to produce lower values than the previous assay method. NEW Reference Range: 13 - 75 U/L Performed By: #### L 501.2450, L500.4050, L100.0100 ####[facility] [address] [place], [address] Stool Occult Blood iFOBon STOB Negative Normal [facility] Comment on above: Performed By: #### L 100.0100, L500.4050 #### [facility] Laboratory [address] [place], [address] Abd Inc Decub and/or Erecton 05-30-2024 Abd Inc Decub and/or Erect [facility] Imaging Services [address] [place] [address] Abd Inc Decub and/or Erect MR#: [id number] Acct: [id number] Name: ALISON SANTACRUZ Rep #: [id number] : 1940 F 83 From: Karel Mortensen MD PCP: Dr. Eddie Waggoner MD Status: REG CLI Study: Abd Inc Decub and/or Erect Date of Exam: 05/30 Exam# [id number] Ordering Dr: Eddie Waggoner MD EXAM: XR [...] the colon consistent with constipation. Reading Location: [facility] CC: Dr. Eddie Waggoner MD Barrel Drum Cutter: Signed Normal [facility] Thyroid Stim Hormone (TSH)on 04-22-2024 TSH 2.120 uIU/mL Normal 0.358-3.740 [facility] Comment on above: Performed By: #### L 100.0100, L501.2450, L500.4050 #### [facility] [address] [facility] [place], [address] EGD Reporton 04-16-2024 EGD Report [facility] Medical Records Department [address] [place] [address] EGD Report MR#: [id number] Acct: [id number] Name: ALISON SANTACRUZ Rep #: [id number] : 1940 83 From: Willie Shook DO PCP: Dr. Eddie Waggoner MD Status:[facility] Patient Name: Alison Santacruz Procedure Date: 04/16/2024 [...] pathology results. Procedure Code(s): --- Professional --- 63475, Esophagogastroduodenosc opy, flexible, transoral; with biopsy, single or multiple CPT copyright 2021 [employer]. All rights reserved. The codes documented in this report are preliminary and upon software quality automation engineer review may be revised to meet current compliance requirements. Willie Shook DO 04/16/2024 3:20:24 PM This report has been signed electronically. Number of Addenda: 0 Note Initiated On: 04/16/2024 2:52 PM 04/16/24 1520 Date Willie Shook DO [facility] Signature: Date (if indicated) CC: Dr. Eddie Waggoner MD; Willie Shook, Date Dictated: 04/16/24 5596 Date Transcribed: Barrel Drum Cutter: ES Signed Normal [facility] H Pylori (initial)on 025 H Pylori (initial) --- Patient Age/Sex Location Account Attending Physician ALISON SANTACRUZ 83/F EN [id number] Willie Shook DO Specimen: [id number] Received: 04/17/24 Status: AKIRA Kelly Num: [id number] Spec Type: IMMUNO Subm Dr: Willie Shook DO PHYSICIAN INSTITUTION [place] [address] SPECIMEN INFORMATION: Tissue Source: B- Gastric cardia biopsy, C- Distal esophagus biopsy Clinical Info: Heartburn, GERD Specimen Number: [id number] B,C CPT code: 79229l7,84623 METHODOLOGY: Deparaffinized sections of prefer/formalin-fixed tissue or [...] developed and their performance characteristics determined by [facility]. They may not have been cleared or approved by the U.S. Food and Drug Administration. The FDA has determined that such clearance or approval is not necessary. The above immunohistochemical/mariama Kwame markers are ordered and reviewed by the Pathologist. INTERPRETATION: B. Gastric cardia, biopsy: Negative for Helicobacter pylori organisms. C. Distal esophagus, biopsy: Negative for dysplasia. SJ 04/19/2024 Signed (signature on file) Dr. Alejandro Rashid MD 04/19/24 1151 Normal [facility] Comment on above: Performed By: #### L 100.0100, L500.4050 #### [facility] Laboratory [address] [place], [address] MR/POSTOP.ANEon 04-16-2024 MR/POSTOP.[facility] Medical Records Department [address] [place] [address] Anesthesia Postop Eval I 04/16/24 1518 MR#: [id number] Acct: [id number] Name: ALISON SANTACRUZ Rep #: [id number] : 1940 83 From: Jim Middleton PCP: Dr. Eddie Waggoner MD Status:[facility] Y Race: C Location: [place] [address] Anesthesia: Postop Eval I Current Vital Signs [...] Jim Gregg Signature: Date CC: Signed Normal [facility] MR/RWXDLHAE8yl 04-16-2024 MR/POSTOPAN2 [facility] Medical Records Department [address] [place] [address] Anesthesia Postop Eval II 04/16/24 1831 MR#: [id number] Acct: [id number] Name: ALISON SANTACRUZ Rep #: [id number] : 1940 83 From: Oliver Kapoor MD PCP: Dr. Eddie Waggoner MD Status:[facility] Y Race: C Location: EN [...] No Vomiting: No Complications Anesthesia Complication: No 04/16/24 183 Date Oliver Kapoor MD Cosigner Signature: Date CC: Signed Normal [facility] Special Stain Group Ion 04-06 Special Stain Group I ----- Patient Age/Sex Location Account Attending Physician ALISON SANTACRUZ 83/F EN [id number] Willie Shook DO Specimen: [id number] Received: 04/17/24 Status: AKIRA Kelly Num: [id number] Spec Type: EGD BIOPSY Subm Dr: Willie Shook DO HEADAGNIESZKA OPERATION: EGD PRE-OP DIAGNOSIS: Heartburn, GERD TISSUE [...] Chronic inflammation. Negative for dysplasia. See comment. SJ.mr 04/18/2024 COMMENT B. The results of immunohistochemistry for Helicobacter pylori will be reported separately ([id number]). C. Alcian blue/PAS stain with matched control is used in the evaluation of the specimen. Immunohistochemistry ([id number]) for P53 and Ki-67 will be performed, [...] Account Attending Physician ALISON SANTACRUZ 83/F EN [id number] Willie Shook DO tissue that in aggregate [...] in one cassette. 04/17/2024 TC:3 [facility]:[id number] Patient Age/Sex Location Account Attending Physician ALISON SANTACRUZ 83/F EN [id number] Willie Shook, DO Signed (signature on file) Dr. Alejandro Rashid MD 04/19/24 0934 [facility] Comment on above: Performed By: #### P SSI ####[facility] [address] [place], [place], [address] MR/RONNIPrernaPrisca 04-15-2024 MR/ESTHER [facility] Medical Records Department [address] [place] [address] PAT - Anesthesia 04/15/24 1032 MR#: [id number] Acct: [id number] Name: ALISON SANTACRUZ Rep #: [id number] : 1940 83 From: Casey Staley MD PCP: Dr. 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 Hx Hospitalization No 04/11/24 15:16 Any Problems [...] take am of surgery PONV PONV - hobbing machine operator: PONV - hobbing machine operator Female Yes 04/11/24 15:16 HX of Motion [...] 12/19/23 13:28 Respiratory Assessment Respiratory Assessment - hobbing machine operator: Respiratory Tract Infection Hx - hobbing machine operator Hx Respiratory Tract Infection No 04/11/24 15:16 STOP Sleep Apnea STOP Sleep Apnea - hobbing machine operator: STOP Sleep Apnea - hobbing machine operator Hx Hypertension Yes: CONTROLLED ON MEDS 04/11/24 [...] 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 Use History - hobbing machine operator: Tobacco Use History - hobbing machine operator Tobacco Use Smoking Status Never smoker 04/11/24 15:16 Hx Tobacco Use No 04/11/24 15:16 Years Smoking Packs Smoked per Day Smoking Cessation Date was within the last 15 years Hx Smoking Cessation Date Hx Smoking Cessation Counseling Hematologic Medial History Hematologic Hx - hobbing machine operator: 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 Normal [facility] CBC W/Diff, Automatedon 12 Absolute Lymph 1.41 X10 3/uL Normal 0.83-4.51 [facility] Comment on above: Performed By: #### L 100.0100, L500.4050, L501.2450 #### [facility] [address] [place], [address] Absolute Neut 2.6 X10 3/uL Normal 2.0-7.7 [facility] Comment on above: Performed By: #### L 100.0100, L500.4050, L501.2450 #### [facility] [address] [place], [address] Basophils/100 WBC (Bld) 1.0 % Normal 0-1 [facility] Comment on above: Performed By: #### L 100.0100, L500.4050, L501.2450 #### [facility] [address] [place], [address] Eosinophils/100 WBC (Bld) 4.4 % Normal 0-5 [facility] Comment on above: Performed By: #### L 100.0100, L500.4050, L501.2450 #### [facility] [address] [place], [address] Erythrocyte distribution width (RBC) [Ratio] 11.9 % Normal 11.6-14.6 [facility] Comment on above: Performed By: #### L 100.0100, L500.4050, L501.2450 #### [facility] [address] [place], [address] Hematocrit (Bld) [Volume fraction] 38.2 % Normal 37-47 [facility] Comment on above: Performed By: #### L 100.0100, L500.4050, L501.2450 #### [facility] [address] [place], [address] Hemoglobin (Bld) [Mass/Vol] 12.9 g/dL Normal 12.0-15.0 [facility] Comment on above: Performed By: #### L 100.0100, L500.4050, L501.2450 #### [facility] [address] [place], [address] IG% 1.000 High 0.0-0.9 [facility] Comment on above: Result Comment: IG% - Immature Granulocytes (promyelocytes, myelocytes and metamyelocytes) > 1% indicates that a LEFT SHIFT is Present. Performed By: #### L 100.0100, L500.4050, L501.2450 #### [facility] [address] [place], [address] Lymphocytes/100 WBC (Bld) 29.5 % Normal 19-41 [facility] Comment on above: Performed By: #### L 100.0100, L500.4050, L501.2450 #### [facility] [address] [place], [address] MCH (RBC) [Entitic mass] 30.1 pg Normal 27.0-32.0 [facility] Comment on above: Performed By: #### L 100.0100, L500.4050, L501.2450 #### [facility] [address] [place], [address] MCHC (RBC) [Mass/Vol] 33.8 g/dL Normal 32-36 [facility] Comment on above: Performed By: #### L 100.0100, L500.4050, L501.2450 #### [facility] [address] [place], [address] MCV (RBC) [Entitic vol] 89.0 fL Normal 81-99 [facility] Comment on above: Performed By: #### L 100.0100, L500.4050, L501.2450 #### [facility] [address] [place], [address] Monocytes/100 WBC (Bld) 8.8 % Normal 0-10 [facility] Comment on above: Performed By: #### L 100.0100, L500.4050, L501.2450 #### [facility] [address] [place], [address] Neutrophils/100 WBC (Bld) 55.3 % Normal 47-70 [facility] Comment on above: Performed By: #### L 100.0100, L500.4050, L501.2450 #### [facility] [address] [place], [address] Nucleated RBC (Bld) [#/Vol] 0 10*3/uL Normal 0-5 [facility] Comment on above: Performed By: #### L 100.0100, L500.4050, L501.2450 #### [facility] [address] [place], [address] Platelet mean volume (Bld) [Entitic vol] 8.6 fL Normal 6.2-12.0 [facility] Comment on above: Performed By: #### L 100.0100, L500.4050, L501.2450 #### [facility] [address] [place], [address] Platelets (Bld) [#/Vol] 193 10*3/uL Normal 150-450 [facility] Comment on above: Performed By: #### L 100.0100, L500.4050, L501.2450 #### [facility] [address] [place], [address] RBC (Bld) [#/Vol] 4.29 10*6/uL Normal 4.2-5.4 [facility] Comment on above: Performed By: #### L 100.0100, L500.4050, L501.2450 #### [facility] [address] [place], [address] RDW SD 38.3 fl Normal 35.1-43.9 [facility] Comment on above: Performed By: #### L 100.0100, L500.4050, L501.2450 #### [facility] [address] [place], [address] WBC (Bld) [#/Vol] 4.8 10*3/uL Normal 4.4-11.0 [facility] Comment on above: Performed By: #### L 100.0100, L500.4050, L501.2450 #### [facility] [address] [place], [address] Comprehensive Metabolic [facility] 02-16-2024 Albumin [Mass/Vol] 3.9 g/dL Normal 3.2-5.0 [facility] Comment on above: Performed By: #### L 100.0100, L500.4050, L501.2450 ####[facility] [address] [place], [address] Albumin/Globulin [Mass ratio] 1.3 {ratio} Normal 0.9-2.4 [facility] Comment on above: Performed By: #### L 100.0100, L500.4050, L501.2450 ####[facility] [address] [place], [address] ALK P 63 U/L Normal 45-117 [facility] Comment on above: Performed By: #### L 100.0100, L500.4050, L501.2450 ####[facility] [address] [place], [address] ALT [Catalytic activity/Vol] 23 U/L Normal 13-56 [facility] Comment on above: Performed By: #### L 100.0100, L500.4050, L501.2450 ####[facility] [address] [place], [address] AST [Catalytic activity/Vol] 12 U/L Low 15-37 [facility] Comment on above: Performed By: #### L 100.0100, L500.4050, L501.2450 ####[facility] [address] [place], [address] Bilirubin [Mass/Vol] 1.00 mg/dL Normal 0.20-1.00 [facility] Comment on above: Result Comment: For patients on eltrombopag therapy, use of Dimension [place] TBIL is not recommended. Performed By: #### L 100.0100, L500.4050, L501.2450 ####[facility] [address] [place], [address] BUN/CRE 16.3 RATIO Normal 10-20 [facility] Comment on above: Performed By: #### L 100.0100, L500.4050, L501.2450 ####[facility] [address] [place], [address] CA,Total 9.4 mg/dL Normal 8.5-10.1 [facility] Comment on above: Performed By: #### L 100.0100, L500.4050, L501.2450 ####[facility] [address] [place], [address] Chloride [Moles/Vol] 103 mmol/L Normal 98-107 [facility] Comment on above: Performed By: #### L 100.0100, L500.4050, L501.2450 ####[facility] [address] [place], [address] CO2 [Moles/Vol] 30.0 mmol/L Normal 21.0-32.0 [facility] Comment on above: Performed By: #### L 100.0100, L500.4050, L501.2450 ####[facility] [address] [place], [address] Creatinine [Mass/Vol] 0.86 mg/dL Normal 0.55-1.02 [facility] Comment on above: Result Comment: The validity of the calculated GFR GFRAA in patients over 70 years has not been determined. Clinical correlation is essential. Performed By: #### L 100.0100, L500.4050, L501.2450 ####[facility] [address] [place], [address] EST GFR - AA 81 mL/min Normal >60 [facility] Comment on above: Result Comment: Afri can [place] GFR Calc Performed By: #### L 100.0100, L500.4050, L501.2450 ####[facility] [address] [place], [address] GAP 4 Low 5-15 [facility] Comment on above: Performed By: #### L 100.0100, L500.4050, L501.2450 ####[facility] [address] [place], [address] GFR/1.73 sq M.predicted among non-blacks MDRD (S/P/Bld) [Vol rate/Area] 67 mL/min/{1.73_m2} Normal >60 [facility] Comment on above: Result Comment: Non- GFR Calc Performed By: #### L 100.0100, L500.4050, L501.2450 ####[facility] [address] [place], [address] Globulin (S) [Mass/Vol] 2.9 g/dL Normal 2.2-4.2 [facility] Comment on above: Performed By: #### L 100.0100, L500.4050, L501.2450 ####[facility] [address] [place], [address] Glucose [Mass/Vol] 94 mg/dL Normal 74-106 [facility] Comment on above: Performed By: #### L 100.0100, L500.4050, L501.2450 ####[facility] [address] [place], [address] Potassium [Moles/Vol] 4.4 mmol/L Normal 3.5-5.1 [facility] Comment on above: Performed By: #### L 100.0100, L500.4050, L501.2450 ####[facility] [address] [place], [address] Sodium [Moles/Vol] 137 mmol/L Normal 136-145 [facility] Comment on above: Performed By: #### L 100.0100, L500.4050, L501.2450 ####[facility] [address] [place] [place], [address] T PROT 6.8 g/dL Normal 6.4-8.2 [facility] Comment on above: Performed By: #### L 100.0100, L500.4050, L501.2450 ####[facility] [id number], [address] Urea nitrogen [Mass/Vol] 14 mg/dL Normal 7-18 [facility] Comment on above: Performed By: #### L 100.0100, L500.4050, L501.2450 ####[facility] [id number] [place], [address] Gastroenterology Visit Repor ton 02-16-2024 Gastroenterology Visit Report [facility] Gastroenterology [address] [address] OFFICE VISIT Date of Service: 02/16/24 MR#: [id number] Acct: [id number] Name: ALISON SANTACRUZ Rep #: [id number] : 1940 Provider: LIZZETTE Edwards Age/Sex: 83/F Location: [facility] Status: Signed Intake Vital Signs 12/19/23 13:28 Height 5 ft 6 in Intake Visit Reasons: Diarrhea Chief Complaint: black tarry stools Allergies Iodinated Contrast Media Allergy (Verified 12/19/23 13:25) Rash atorvastatin (From Lipitor) Adverse Reaction (Verified 12/19/23 13:25) Upset Stomach bupropion (From Wellbutrin) Adverse Reaction (Verified 12/19/23 13:25) Other paroxetine (From Paxil) Adverse Reaction (Verified 12/19/23 13:25) Qulin poorly rosuvastatin (From Crestor) Adverse Reaction (Verified [...] poor appetite due to nausea. [facility] Medical History (Updated 02/16/24 @ 09:31 by [...] presents to the office today for f/u. [facility] established 11.27.23 w/ constipation and complaints of [...] Appearance: average body habitus and well nourished [facility] Head: normal to inspection Ears: hearing grossly normal bilaterally Nose: external nose normal Eyes General: appearance normal, osmany (more content not included)... Normal [facility] Lipaseon 02-16-2024 Lipase [Catalytic activity/Vol] 37 U/L Normal 13-75 [facility] Comment on above: Result Comment: Yuko joseph note: LIPASE revised reference range effective 22. New Lipase methodology. Expected to produce lower values than the previous assay method. NEW Reference Range: 13 - 75 U/L Performed By: #### L 100.0100, L500.4050, L501.2450 ####[facility] [id number] [place], [address] Absolute lymphocyte countOrd ered By: Tila Bailey on 01-17-2023 Lymphocytes Auto (Unsp spec) [#/Vol] 0.50 10*3/uL 0.83-4.51 [facility] Basophil percentageOrdered B y: Tila Bailey on 01-17-2023 Creatinine [Mass/Vol] 1.0 mg/dL 0.55-1.02 [facility] Basophils/100 WBC (Bld) 0.3 % 0-1 [facility] Bilirubin [Mass/Vol] 0.70 mg/dL 0.20-1.00 [facility] Comment on above: For patients on eltr ombopag therapy, use of Dimension [place] TBIL is not recommended. Chloride [Moles/Vol] 105 mmol/L 98-107 [facility] Cholesterol [Mass/Vol] 264 mg/dL <200 [facility] Comment on above: <200 mg/dL Desirable 200-240 mg/dL Borderline >240 mg/dL High Risk Eosinophils/100 WBC (Bld) 2.5 % 0-5 [facility] Glucose [Mass/Vol] 150 mg/dL 74-106 [facility] Comment on above: Fasting Glucose resu lt greater than or equal to 126 mg/dL suggests DIABETES MELLITUS per A.D.A. criteria. Neutrophils (Bld) [#/Vol] 5.4 10*3/uL 2.0-7.7 [facility] Neutrophils/100 WBC (Bld) 84.7 % 47-70 [facility] Potassium [Moles/Vol] 4.1 mmol/L 3.5-5.1 [facility] Protein [Mass/Vol] 7.9 g/dL 6.4-8.2 [facility] Sodium [Moles/Vol] 139 mmol/L 136-145 [facility] Triglyceride [Mass/Vol] 60 mg/dL <199 [facility] Comment on above: The drugs N-Acetylcy steine and Metamizole may falsely depress this assay.Serum Triglycerides Reference Interval Normal <150 mg/dL Borderline high 150 - 199 mg/dL High 200 - 499 mg/dL Very High > or = 500 mg/dL WBC (Bld) [#/Vol] 6.4 10*3/uL 4.4-11.0 [facility] Blood erythrocytes count (nu mber/volume)Ordered By: Tila Bailey on 01-17-2023 RBC (Bld) [#/Vol] 4.36 10*6/uL 4.2-5.4 [facility] Blood hemoglobin measurement (mass/volume)Ordered By: Tila Bailey on 01-17-2023 Hemoglobin (Bld) [Mass/Vol] 12.7 g/dL 12.0-15.0 [facility] Blood lymphocytes/100 leukoc ytesOrdered By: Tila Bailey on 01-17-2023 Lymphocytes/100 WBC (Bld) 7.9 % 19-41 [facility] Blood manual differential co mment interpretation (narrative result)Ordered By: Tila Bailey on 01-17-2023 Manual differential comment Mehdi (Bld) [Interp] SCANNED [facility] Blood monocytes/100 leukocyt esOrdered By: Tila Bailey on 01-17-2023 Monocytes/100 WBC (Bld) 4.1 % 0-10 [facility] Blood platelet mean volumeOr dered By: Tila Bailey on 01-17-2023 Platelet mean volume (Bld) [Entitic vol] 8.7 fL 6.2-12.0 [facility] Determination of erythrocyte mean corpuscular volume (MCV)Ordered By: Tila Bailey on 01-17-2023 MCV (RBC) [Entitic vol] 89.0 fL 81-99 [facility] Hematocrit Auto (Bld) [Volum e fraction]Ordered By: Tila Bailey on 01-17-2023 Hematocrit (Bld) [Volume fraction] 38.8 % 37-47 [facility] Laboratory - Chemistry and C hemistry - challengeOrdered By: Tila Bailey on 01-17-2023 GFR/1.73 sq M.predicted among non-blacks MDRD (S/P/Bld) [Vol rate/Area] 54.0000 mL/min/{1.73_m2} >60 [facility] ALP [Catalytic activity/Vol] 70 U/L 45-117 [facility] ALT [Catalytic activity/Vol] 27 U/L 13-56 [facility] CO2 [Moles/Vol] 27.0 mmol/L 21.0-32.0 [facility] Globulin (S) [Mass/Vol] 3.9 g/dL 2.2-4.2 [facility] Urea nitrogen/Creatinine [Mass ratio] 18.3 mg/mg 10-20 [facility] Laboratory - Hematology and Cell countsOrdered By: Tila Bailey on 01-17-2023 Erythrocyte distribution width (RBC) [Entitic vol] 39.1 fL 35.1-43.9 [facility] Erythrocyte distribution width (RBC) [Ratio] 12.0 % 11.6-14.6 [facility] Immature granulocytes/100 WBC (Bld) 0.500 % 0.0-0.9 [facility] Comment on above: IG% - Immature Granu locytes (promyelocytes, myelocytes and metamyelocytes) > 1% indicates that a LEFT SHIFT is Present. MCH (RBC) [Entitic mass] 29.1 pg 27.0-32.0 [facility] Nucleated RBC/100 WBC (Bld) [Ratio] 0 % 0-5 [facility] MCHC Auto (RBC) [Mass/Vol]Or dered By: Tila Bailey on 01-17-2023 MCHC (RBC) [Mass/Vol] 32.7 g/dL 32-36 [facility] No Panel InformationOrdered By: Tila Bailey on 01-17-2023 Estimated GFR (MDRD) Amer 74 mL/min >60 [facility] Comment on above: GFR Calc Estimated GFR (MDRD) Non-Af Amer 61 mL/min >60 [facility] Comment on above: Non- GFR Calc Thyroid Stimulating Hormone (TSH) 0.86 uIU/mL 0.358-3.74 [facility] Vitamin D 25-Hydroxy 102.0 ng/mL [facility] Comment on above: Vitamin D [...] 01-17-2023 Platelets (Bld) [#/Vol] 207 10*3/uL 150-450 [facility] Serum or plasma albumin jose martin urement (mass/volume)Ordered By: Tila Bailey on 01-17-2023 Albumin [Mass/Vol] 4.0 g/dL 3.2-5.0 [facility] Serum or plasma albumin/glob ulin mass ratioOrdered By: Tila Bailey on 01-17-2023 Albumin/Globulin [Mass ratio] 1.0 {ratio} 0.9-2.4 [facility] Serum or plasma calcium jose martin urement (mass/volume)Ordered By: Tila Bailey on 01-17-2023 Calcium [Mass/Vol] 9.3 mg/dL 8.5-10.1 [facility] Serum or plasma cholesterol in HDL measurement (mass/volume)Ordered By: Tila Bailey on 01-17-2023 Cholesterol in HDL [Mass/Vol] 81 mg/dL >40 [facility] Comment on above: The drugs N-Acetylcy steine and Metamizole may falsely depress this assay. Reference Range HDL <40 mg/dL Low HDL Cholesterol HDL >or= 60 mg/dL High HDL Cholesterol Serum or plasma cholesterol in VLDL measurement (mass/volume)Ordered By: Tila Bailey on 01-17-2023 Cholesterol in VLDL [Mass/Vol] 12 mg/dL 5-40 [facility] Serum or plasma creatinine m easurement (mass/volume)Ordered By: Tila Bailey on 01-17-2023 Creatinine [Mass/Vol] 0.93 mg/dL 0.55-1.02 [facility] Comment on above: The validity of the calculated GFR & GFRAA in patients over 70 years has not been determined. Clinical correlation is essential. Serum or plasma low density lipoprotein (LDL) cholesterol measurement (mass/volume)Ordered By: Tila Bailey on 01-17-2023 Cholesterol in LDL [Mass/Vol] 171 mg/dL 0-130 [facility] Serum or plasma urea nitroge n measurement (mass/volume)Ordered By: Tila Bailey on 01-17-2023 Urea nitrogen [Mass/Vol] 17 mg/dL 7-18 [facility] Thin prep Papanicolaou smear with manual screeningOrdered By: Tila Bailey on 01-17-2023 Thin prep Papanicolaou smear with manual screening 16 U/L 15-37 [facility] Thin prep Papanicolaou smear with manual screening 7 5-15 [facility] Laboratory - Chemistry and C hemistry - challengeOrdered By: Roxanna Lemus on 09-15-2022 Free T4 [Mass/Vol] 1.19 ng/dL 0.76-1.46 [facility] No Panel InformationOrdered By: Roxanna Lemus on 09-15-2022 Thyroid Stimulating Hormone (TSH) 2.38 uIU/mL 0.358-3.74 [facility] Absolute lymphocyte countOrd ered By: Vernon Garrett on 07-19-2022 Lymphocytes Auto (Unsp spec) [#/Vol] 1.39 10*3/uL 0.83-4.51 [facility] Basophil percentageOrdered B y: Vernon Simentaloctavio on 07-19-2022 Basophils/100 WBC (Bld) 0.6 % 0-1 [facility] Bilirubin [Mass/Vol] 0.50 mg/dL 0.20-1.00 [facility] Comment on above: For patients on eltr ombopag therapy, use of Dimension [place] TBIL is not recommended. Chloride [Moles/Vol] 106 mmol/L 98-107 [facility] Eosinophils/100 WBC (Bld) 8.1 % 0-5 [facility] Glucose [Mass/Vol] 119 mg/dL 74-106 [facility] Comment on above: Fasting Glucose resu lt from 100 to 125 mg/dL suggests IMPAIRED HOMEOSTASIS per A.D.A. criteria. LDH [Catalytic activity/Vol] 188 U/L 84-246 [facility] Neutrophils (Bld) [#/Vol] 2.6 10*3/uL 2.0-7.7 [facility] Neutrophils/100 WBC (Bld) 53.9 % 47-70 [facility] Potassium [Moles/Vol] 4.1 mmol/L 3.5-5.1 [facility] Protein [Mass/Vol] 7.5 g/dL 6.4-8.2 [facility] Sodium [Moles/Vol] 139 mmol/L 136-145 [facility] WBC (Bld) [#/Vol] 4.8 10*3/uL 4.4-11.0 [facility] Blood erythrocytes count (nu mber/volume)Ordered By: Vernon Garrett on 07-19-2022 RBC (Bld) [#/Vol] 4.23 10*6/uL 4.2-5.4 [facility] Blood hemoglobin measurement (mass/volume)Ordered By: Vernon Garrett on 07-19-2022 Hemoglobin (Bld) [Mass/Vol] 12.7 g/dL 12.0-15.0 [facility] Blood lymphocytes/100 leukoc ytesOrdered By: Vernon Garrett on 07-19-2022 Lymphocytes/100 WBC (Bld) 28.9 % 19-41 [facility] Blood monocytes/100 leukocyt esOrdered By: Vernon Garrett on 07-19-2022 Monocytes/100 WBC (Bld) 8.3 % 0-10 [facility] Blood platelet mean volumeOr dered By: Vernon Garrett on 07-19-2022 Platelet mean volume (Bld) [Entitic vol] 8.4 fL 6.2-12.0 [facility] Determination of erythrocyte mean corpuscular volume (MCV)Ordered By: Vernon Garrett on 07-19-2022 MCV (RBC) [Entitic vol] 89.6 fL 81-99 [facility] Erythrocyte sedimentation ra teOrdered By: Vernon Garrett on 07-19-2022 ESR (Bld) [Velocity] 12 mm/h 0-30 [facility] Hematocrit Auto (Bld) [Volum e fraction]Ordered By: Vernon Garrett on 07-19-2022 Hematocrit (Bld) [Volume fraction] 37.9 % 37-47 [facility] Hemoglobin in reticulocytes (mass per reticulocyte)Ordered By: Vernon Garrett on 07-19-2022 Hemoglobin (Reticulocytes) [Entitic mass] 32.7 pg 30-35 [facility] Iron measurement (mass/mass) Ordered By: Vernon Tami on 07-19-2022 Iron (Unsp spec) [Mass/Mass] 55 ug/dL 50-170 [facility] Laboratory - Chemistry and C hemistry - challengeOrdered By: [place] Tami on 07-19-2022 ALP [Catalytic activity/Vol] 106 U/L 45-117 [facility] ALT [Catalytic activity/Vol] 30 U/L 13-56 [facility] CO2 [Moles/Vol] 27.0 mmol/L 21.0-32.0 [facility] Cobalamin (Vitamin B12) [Mass/Vol] 428 pg/mL 211-911 [facility] Globulin (S) [Mass/Vol] 3.6 g/dL 2.2-4.2 [facility] Urea nitrogen/Creatinine [Mass ratio] 21.3 mg/mg 10-20 [facility] Laboratory - Hematology and Cell countsOrdered By: Vernon Garrett on 07-19-2022 Erythrocyte distribution width (RBC) [Entitic vol] 41.0 fL 35.1-43.9 [facility] Erythrocyte distribution width (RBC) [Ratio] 12.4 % 11.6-14.6 [facility] Immature granulocytes/100 WBC (Bld) 0.200 % 0.0-0.9 [facility] Comment on above: IG% - Immature Granu locytes (promyelocytes, myelocytes and metamyelocytes) > 1% indicates that a LEFT SHIFT is Present. MCH (RBC) [Entitic mass] 30.0 pg 27.0-32.0 [facility] Nucleated RBC/100 WBC (Bld) [Ratio] 0 % 0-5 [facility] MCHC Auto (RBC) [Mass/Vol]Or dered By: Vernon Garrett on 07-19-2022 MCHC (RBC) [Mass/Vol] 33.5 g/dL 32-36 [facility] No Panel InformationOrdered By: Vernon Garrett on 07-19-2022 Estimated GFR (MDRD) Amer 78 mL/min >60 [facility] Comment on above: GFR Calc Estimated GFR (MDRD) Non-Af Amer 64 mL/min >60 [facility] Comment on above: Non- GFR Calc Immature Reticulocyte Fraction 5.80 % 3.00-15.90 [facility] Reticulocyte Count 1.11 % 0.5-1.5 [facility] Total Iron Binding Capacity 319 ug/dL 250-450 [facility] Platelets bldOrdered By: David Garrett on 07-19-2022 Platelets (Bld) [#/Vol] 182 10*3/uL 150-450 [facility] Serum or plasma C reactive p rotein measurement (mass/volume)Ordered By: Vernon Garrett on 07-19-2022 CRP [Mass/Vol] mg/L 0.0-3.0 [facility] Comment on above: C-Reactive Protein ( CRP) provides useful information for thediagnosis, therapy and monitoring of inflammatory processesand associated diseases. For the evaluation of Relative Riskfor Cardiovascular Disease, a High Sensitivity CRP (HSCRP)should be ordered. Serum or plasma albumin jose martin urement (mass/volume)Ordered By: Vernon Garrett on 07-19-2022 Albumin [Mass/Vol] 3.9 g/dL 3.2-5.0 [facility] Serum or plasma albumin/glob ulin mass ratioOrdered By: [facility] on 07-19-2022 Albumin/Globulin [Mass ratio] 1.1 {ratio} 0.9-2.4 [facility] Serum or plasma calcium jose martin urement (mass/volume)Ordered By: Vernon Garrett on 07-19-2022 Calcium [Mass/Vol] 9.1 mg/dL 8.5-10.1 [facility] Serum or plasma creatinine m easurement (mass/volume)Ordered By: Vernon Garrett on 07-19-2022 Creatinine [Mass/Vol] 0.89 mg/dL 0.55-1.02 [facility] Comment on above: The validity of the calculated GFR & GFRAA in patients over 70 years has not been determined. Clinical correlation is essential. Serum or plasma ferritin manuela surement (mass/volume)Ordered By: Vernon Garrett on 07-19-2022 Ferritin [Mass/Vol] 55 ng/mL 8-252 [facility] Serum or plasma folate measu rement (mass/volume)Ordered By: Vernon Garrett on 07-19-2022 Folate [Mass/Vol] 49.60 ng/mL 3.1-55.4 [facility] Serum or plasma iron saturat ion measurement (mass fraction)Ordered By: Vernon [facility] on 07-19-2022 Iron saturation [Mass fraction] 17.2 % 15.0-55.0 [facility] Serum or plasma urea nitroge n measurement (mass/volume)Ordered By: Venron Garrett on 07-19-2022 Urea nitrogen [Mass/Vol] 19 mg/dL 7-18 [facility] Thin prep Papanicolaou smear with manual screeningOrdered By: Vernon Garrett on 07-19-2022 Thin prep Papanicolaou smear with manual screening 20 U/L 15-37 [facility] Thin prep Papanicolaou smear with manual screening 6 5-15 [facility] Absolute lymphocyte countOrd ered By: Roxanna Lemus on 07-05-2022 Lymphocytes Auto (Unsp spec) [#/Vol] 1.06 10*3/uL 0.83-4.51 [facility] Basophil percentageOrdered B y: Roxanna Lemus on 07-05-2022 Basophils/100 WBC (Bld) 0.7 % 0-1 [facility] Eosinophils/100 WBC (Bld) 9.7 % 0-5 [facility] Neutrophils (Bld) [#/Vol] 1.2 10*3/uL 2.0-7.7 [facility] Neutrophils/100 WBC (Bld) 41.5 % 47-70 [facility] WBC (Bld) [#/Vol] 2.8 10*3/uL 4.4-11.0 [facility] Blood erythrocytes count (nu mber/volume)Ordered By: Roxanna Lemus on 07-05-2022 RBC (Bld) [#/Vol] 4.23 10*6/uL 4.2-5.4 [facility] Blood hemoglobin measurement (mass/volume)Ordered By: Roxanna Lemus on 07-05-2022 Hemoglobin (Bld) [Mass/Vol] 12.6 g/dL 12.0-15.0 [facility] Blood lymphocytes/100 leukoc ytesOrdered By: Roxanna Lemus on 07-05-2022 Lymphocytes/100 WBC (Bld) 38.0 % 19-41 [facility] Blood monocytes/100 leukocyt esOrdered By: Roxanna Lemus on 07-05-2022 Monocytes/100 WBC (Bld) 9.7 % 0-10 [facility] Blood platelet mean volumeOr dered By: Roxanna Lemus on 07-05-2022 Platelet mean volume (Bld) [Entitic vol] 8.9 fL 6.2-12.0 [facility] Determination of erythrocyte mean corpuscular volume (MCV)Ordered By: Roxanna Lemus on 07-05-2022 MCV (RBC) [Entitic vol] 90.5 fL 81-99 [facility] Hematocrit Auto (Bld) [Volum e fraction]Ordered By: Roxanna Lemus on 07-05-2022 Hematocrit (Bld) [Volume fraction] 38.3 % 37-47 [facility] Laboratory - Hematology and Cell countsOrdered By: Roxanna Lemus on 07-05-2022 Erythrocyte distribution width (RBC) [Entitic vol] 41.6 fL 35.1-43.9 [facility] Erythrocyte distribution width (RBC) [Ratio] 12.6 % 11.6-14.6 [facility] Immature granulocytes/100 WBC (Bld) 0.400 % 0.0-0.9 [facility] Comment on above: IG% - Immature Granu locytes (promyelocytes, myelocytes and metamyelocytes) > 1% indicates that a LEFT SHIFT is Present. MCH (RBC) [Entitic mass] 29.8 pg 27.0-32.0 [facility] Nucleated RBC/100 WBC (Bld) [Ratio] 0 % 0-5 [facility] MCHC Auto (RBC) [Mass/Vol]Or dered By: Roxanna Lemus on 07-05-2022 MCHC (RBC) [Mass/Vol] 32.9 g/dL 32-36 [facility] No Panel InformationOrdered By: Sandra Sheppard on 07-05-2022 Thyroid Stimulating Hormone (TSH) 4.94 uIU/mL 0.358-3.74 [facility] Platelets bldOrdered By: Abhijit Lemus on 07-05-2022 Platelets (Bld) [#/Vol] 198 10*3/uL 150-450 [facility] Absolute lymphocyte countOrd ered By: Roxanna Lemus on 06-07-2022 Lymphocytes Auto (Unsp spec) [#/Vol] 1.09 10*3/uL 0.83-4.51 [facility] Basophil percentageOrdered B y: Roxanna Lemus on 06-07-2022 Basophils/100 WBC (Bld) 1.1 % 0-1 [facility] Bilirubin [Mass/Vol] 1.10 mg/dL 0.20-1.00 [facility] Comment on above: For patients on eltr ombopag therapy, use of Dimension [place] TBIL is not recommended. Chloride [Moles/Vol] 107 mmol/L 98-107 [facility] Cholesterol [Mass/Vol] 252 mg/dL <200 [facility] Comment on above: <200 mg/dL Desirable 200-240 mg/dL Borderline >240 mg/dL High Risk Eosinophils/100 WBC (Bld) 10.7 % 0-5 [facility] Glucose [Mass/Vol] 94 mg/dL 74-106 [facility] Neutrophils (Bld) [#/Vol] 1.1 10*3/uL 2.0-7.7 [facility] Neutrophils/100 WBC (Bld) 39.6 % 47-70 [facility] Potassium [Moles/Vol] 3.9 mmol/L 3.5-5.1 [facility] Protein [Mass/Vol] 7.4 g/dL 6.4-8.2 [facility] Sodium [Moles/Vol] 139 mmol/L 136-145 [facility] Triglyceride [Mass/Vol] 94 mg/dL <199 [facility] Comment on above: The drugs N-Acetylcy steine and Metamizole may falsely depress this assay.Serum Triglycerides Reference Interval Normal <150 mg/dL Borderline high 150 - 199 mg/dL High 200 - 499 mg/dL Very High > or = 500 mg/dL WBC (Bld) [#/Vol] 2.7 10*3/uL 4.4-11.0 [facility] Blood erythrocytes count (nu mber/volume)Ordered By: Roxanna Lemus on 06-07-2022 RBC (Bld) [#/Vol] 4.13 10*6/uL 4.2-5.4 [facility] Blood hemoglobin measurement (mass/volume)Ordered By: Roxanna Lemus on 06-07-2022 Hemoglobin (Bld) [Mass/Vol] 12.1 g/dL 12.0-15.0 [facility] Blood lymphocytes/100 leukoc ytesOrdered By: Roxanna Lemus on 06-07-2022 Lymphocytes/100 WBC (Bld) 40.1 % 19-41 [facility] Blood monocytes/100 leukocyt esOrdered By: Roxanna Lemus on 06-07-2022 Monocytes/100 WBC (Bld) 8.1 % 0-10 [facility] Blood platelet mean volumeOr dered By: Roxanna Lemus on 06-07-2022 Platelet mean volume (Bld) [Entitic vol] 8.8 fL 6.2-12.0 [facility] Determination of erythrocyte mean corpuscular volume (MCV)Ordered By: Roxanna Lemus on 06-07-2022 MCV (RBC) [Entitic vol] 88.6 fL 81-99 [facility] Hematocrit Auto (Bld) [Volum e fraction]Ordered By: Roxanna Lemus on 06-07-2022 Hematocrit (Bld) [Volume fraction] 36.6 % 37-47 [facility] Laboratory - Chemistry and C hemistry - challengeOrdered By: Roxanna Lemus on 06-07-2022 ALP [Catalytic activity/Vol] 84 U/L 45-117 [facility] ALT [Catalytic activity/Vol] 26 U/L 13-56 [facility] CO2 [Moles/Vol] 27.0 mmol/L 21.0-32.0 [facility] Globulin (S) [Mass/Vol] 3.6 g/dL 2.2-4.2 [facility] Urea nitrogen/Creatinine [Mass ratio] 19.4 mg/mg 10-20 [facility] Laboratory - Hematology and Cell countsOrdered By: Roxanna Lemus on 06-07-2022 Erythrocyte distribution width (RBC) [Entitic vol] 41.2 fL 35.1-43.9 [facility] Erythrocyte distribution width (RBC) [Ratio] 12.8 % 11.6-14.6 [facility] Immature granulocytes/100 WBC (Bld) 0.400 % 0.0-0.9 [facility] Comment on above: IG% - Immature Granu locytes (promyelocytes, myelocytes and metamyelocytes) > 1% indicates that a LEFT SHIFT is Present. MCH (RBC) [Entitic mass] 29.3 pg 27.0-32.0 [facility] Nucleated RBC/100 WBC (Bld) [Ratio] 0 % 0-5 [facility] [facility] Auto (RBC) [Mass/Vol]Or dered By: Roxanna Lemus on 06-07-2022 MCHC (RBC) [Mass/Vol] 33.1 g/dL 32-36 [facility] No Panel InformationOrdered By: Roxanna Lemus on 06-07-2022 Estimated GFR (MDRD) Amer 79 mL/min >60 [facility] Comment on above: GFR Calc Estimated GFR (MDRD) Non-Af Amer 65 mL/min >60 [facility] Comment on above: Non- GFR Calc Thyroid Stimulating Hormone (TSH) 32.30 uIU/mL 0.358-3.74 [facility] Platelets bldOrdered By: Abhijit Lemus on 06-07-2022 Platelets (Bld) [#/Vol] 188 10*3/uL 150-450 [facility] Serum or plasma albumin jose martin urement (mass/volume)Ordered By: Roxanna Lemus on 06-07-2022 Albumin [Mass/Vol] 3.8 g/dL 3.2-5.0 [facility] Serum or plasma albumin/glob ulin mass ratioOrdered By: Roxanna Lemus on 06-07-2022 Albumin/Globulin [Mass ratio] 1.1 {ratio} 0.9-2.4 [facility] Serum or plasma calcium jose martin urement (mass/volume)Ordered By: Roxanna Lemus on 06-07-2022 Calcium [Mass/Vol] 8.9 mg/dL 8.5-10.1 [facility] Serum or plasma cholesterol in HDL measurement (mass/volume)Ordered By: Roxanna Lemus on 06-07-2022 Cholesterol in HDL [Mass/Vol] 66 mg/dL >40 [facility] Comment on above: The drugs N-Acetylcy steine and Metamizole may falsely depress this assay. Reference Range HDL <40 mg/dL Low HDL Cholesterol HDL >or= 60 mg/dL High HDL Cholesterol Serum or plasma cholesterol in VLDL measurement (mass/volume)Ordered By: Roxanna Lemus on 06-07-2022 Cholesterol in VLDL [Mass/Vol] 19 mg/dL 5-40 [facility] Serum or plasma creatinine m easurement (mass/volume)Ordered By: Roxanna Lemus on 06-07-2022 Creatinine [Mass/Vol] 0.88 mg/dL 0.55-1.02 [facility] Comment on above: The validity of the calculated GFR & GFRAA in patients over 70 years has not been determined. Clinical correlation is essential. Serum or plasma low density lipoprotein (LDL) cholesterol measurement (mass/volume)Ordered By: Roxanna Lemus on 06-07-2022 Cholesterol in LDL [Mass/Vol] 167 mg/dL 0-130 [facility] Serum or plasma urea nitroge n measurement (mass/volume)Ordered By: Roxanna Lemus on 06-07-2022 Urea nitrogen [Mass/Vol] 17 mg/dL 7-18 [facility] Thin prep Papanicolaou smear with manual screeningOrdered By: Roxanna Lemus on 06-07-2022 Thin prep Papanicolaou smear with manual screening 19 U/L 15-37 [facility] Thin prep Papanicolaou smear with manual screening 5 5-15 [facility] Thin prep Papanicolaou smear with manual screening 21.3 mg/L NO RANGE EST. [facility] Vital Signs Date Time Vital Sign Value Performing Clinician Facility 10-05-2024 14:26-040 Body temperature 99.39 [degF] David Rocha MD Work Phone: [facility] 10-05-2024 [id number] Body weight 72.2 kg David Rocha MD Work Phone: [facility] 10-05-2024 14:26-0400 Diastolic blood pressure 78 mm[Hg] David Rocha MD Work Phone: [facility] 10-05-2024 14:26-0400 Heart rate 85 /min David Rocha MD Work Phone: [facility] 10-05-2024 [id number] Respiratory rate 18 /min David Rocha MD Work Phone: [facility] 10-05-2024 14:26-0400 SaO2% (BldA) [Mass fraction] 98 % David Rocha MD Work Phone: [facility] 10-05-2024 14:26-0400 Systolic blood pressure 122 mm[Hg] David Rocha MD Work Phone: [facility] 07-25-2022 13:15-0400 Body height 165.1 cm DO Roxanna Lemus Work Phone: [facility] 07-25-2022 13:14-0400 Body mass index (BMI) [Ratio] 26.8 kg/m2 DO Roxanna Lemus Work Phone: [facility] 07-25-2022 13:14-0400 Body temperature 97.9 [degF] DO Roxanna Allan Work Phone: [facility] 07-25-2022 13:14-0400 Body weight 73.17 kg DO Roxanna Allan Work Phone: [facility] 07-25-2022 13:14-0400 Diastolic blood pressure 68 mm[Hg] DO Roxanna Allan Work Phone: [facility] 07-25-2022 13:14-0400 Heart rate 96 /min DO Roxanna Allan Work Phone: [facility] 07-25-2022 13:14-0400 Respiratory rate 16 /min DO Roxanna Allan Work Phone: [facility] 07-25-2022 13:14-0400 SaO2% (BldA) [Mass fraction] 96 % DO Roxanna Allan Work Phone: [facility] 07-25-2022 13:14-0400 Systolic blood pressure 112 mm[Hg] DO Roxanna Allan Work Phone: [facility] 07-19-2022 14:30-0400 Body mass index (BMI) [Ratio] 26.6 kg/m2 DO Roxanna Allan Work Phone: [facility] 07-19-2022 14:30-0400 Body temperature 97.1 [degF] DO Roxanna Allan Work Phone: [facility] 07-19-2022 14:30-0400 Body weight 72.77 kg DO Roxanna Allan Work Phone: [facility] 07-19-2022 14:30-0400 Diastolic blood pressure 73 mm[Hg] DO Roxanna Allan Work Phone: [facility] 07-19-2022 14:30-0400 Heart rate 96 /min DO Roxanna Allan Work Phone: [facility] 07-19-2022 14:30-0400 Respiratory rate 16 /min DO Roxanna Allan Work Phone: [address]16-2023 14:30-0400 SaO2% (BldA) [Mass fraction] 97 % DO Roxanna Lemus Work Phone: [facility] 07-19-2022 14:30-0400 Systolic blood pressure 118 mm[Hg] DO Roxanna Lemus Work Phone: [facility] Encounters Encounter Date Encounter Type Care Provider Facility Start: 01-08-2025 ambulatory Rudi Chi Rajan Facility:[facility] Start: 01-08-2025 End: 01-08-2025 ambulatory Rudi Chi Rajan Facility:[facility] Start: 12-03-2024 ambulatory Rudi Chi Rajan Facility:[facility] Start: 11-29-2024 End: 11-29-2024 ambulatory Rudi Chi Rajan Facility:[facility] Start: 11-28-2024 End: 11-28-2024 ambulatory Rudi Chi Rajan Facility:[facility] Start: 10-29-2024 End: 10-29-2024 ambulatory Rudi Chi Rajan Facility:[facility] Start: 10-25-2024 End: 10-25-2024 ambulatory Rudi Chi Rajan Facility:[facility] Start: 10-23-2024 End: 10-23-2024 ambulatory Rudi Chi Rajan Facility:[facility] Start: 10-16-2024 End: 10-16-2024 ambulatory Rudi Chi Rajan Facility:[facility] Start: 10-14-2024 End: 10-14-2024 Emergency department patient visit Chalon Rosaline Facility:[facility] Start: 10-11-2024 End: 10-12-2024 ambulatory Chalon Rosaline Facility:[facility] Start: 10-11-2024 End: 10-11-2024 ambulatory Rajwinder Luis Facility:[facility] Start: 10-06-2024 End: 10-06-2024 Emergency department patient visit Chris Phillips Facility:[facility] Start: 10-05-2024 End: 10-05-2024 ambulatory DAVID ROCHA Facility:[facility] Start: 10-05-2024 End: 10-05-2024 Patient encounter procedure David Rocha MD Work Phone: [facility] Comment on above: Influenza-like illne ss (Primary Dx); Nausea Start: 10-04-2024 ambulatory Chalon Rosaline Facility:[facility] Start: 07-30-2024 End: 07-30-2024 ambulatory Chalon Rosaline Facility:[facility] Start: 06-20-2024 End: 06-20-2024 ambulatory Chalon Rosaline Facility:[facility] Start: 05-31-2024 End: 05-31-2024 ambulatory Chalon Rosaline Facility:[facility] Start: 05-31-2024 End: 05-31-2024 ambulatory Chalon Rosaline Facility:[facility] Start: 05-30-2024 End: 05-30-2024 ambulatory Chalon Rosaline Facility:[facility] Start: 05-17-2024 ambulatory Chalon Rosaline Facility:[facility] Start: 04-22-2024 End: 04-22-2024 ambulatory Chalon Rosaline Facility:[facility] Start: 04-16-2024 ambulatory Chalon Rosaline Facility:[facility] Start: 04-16-2024 End: 04-16-2024 ambulatory Chalon Rosaline Facility:[facility] Start: 02-16-2024 End: 02-16-2024 ambulatory Chalon Rosaline Facility:[facility] Start: 02-16-2024 End: 02-16-2024 ambulatory Chalon Rosaline Facility:[facility] Start: 01-17-2023 End: 01-17-2023 ambulatory [facility] Work Phone: Start: 01-17-2023 End: 01-17-2023 Patient encounter procedure [facility], [facility] Work Phone: Start: 09-15-2022 End: 09-15-2022 ambulatory DO Roxanna Lemus Work Phone: [facility] Work Phone: Start: 09-15-2022 End: 09-15-2022 Patient encounter procedure DO Roxanna Lemus Work Phone: [facility] Work Phone: Start: 07-25-2022 End: 07-25-2022 Patient encounter procedure DO Roxanna Lemus Work Phone: [facility] Work Phone: Start: 07-19-2022 Registered Recurring DO Mavis Lemus Work Phone: [facility] Start: 07-19-2022 End: 07-19-2022 Patient encounter procedure DO Roxanna Lemus Work Phone: [facility] Work Phone: Start: 07-14-2022 Non-patient / Non-visit DO Abhijit Lemus Work Phone: [facility] Start: 07-05-2022 End: 07-05-2022 ambulatory [facility] Work Phone: Start: 07-05-2022 End: 07-05-2022 Patient encounter procedure [facility] Start: 06-21-2022 End: 06-21-2022 ambulatory [facility] Work Phone: Start: 06-21-2022 End: 06-21-2022 Patient encounter procedure [facility]-Outpatient Bone Densitometry Start: 06-07-2022 End: 06-07-2022 Patient encounter procedure [facility] Start: 06-29-2021 End: 06-29-2021 [facility] Procedures Date Procedure Procedure Detail Performing Clinician Start: 01-17-2023 Computed tomography of abdomen and pelvis with contrast Start: 06-21-2022 Dual energy X-ray absorptiometry Start: 06-29-2021 Radiography of ankle Plan of Treatment Date Care Activity Detail Author Start: 11-27-2024 Urine microalbumin profile DTaP,Tdap,Td Vaccine (2 - Td or Tdap) [facility] Start: 11-04-2024 Influenza vaccination Influenza Vacc ine (#1) [facility] Start: 03-06-2024 Advance Directive Discussion Advance Directive Discussion [facility] Start: 02-09-2022 Shingrix Vaccine (2 of 2) Salguero grix Vaccine (2 of 2) [facility] Start: 07-28-2003 Screening for osteoporosis Bone Density Screening [facility] Start: 07-28-1983 Diabetes Screening Diabetes Screenin g [facility] Start: 1958 Anxiety Screening Anxiety Screening [facility] Start: 1958 Depression Screening Depression Scre ening [facility] CBC W Auto Different ial panel - Blood [facility] Ferritin [Mass/volum e] in Serum or Plasma [facility] Folate [Mass/volume] in Serum or Plasma [facility] Iron and Iron bindin g capacity panel - Serum or Plasma [facility] Lactate dehydrogenas e measurement [facility] Vitamin B12 measurement [facility] Immunizations Immunization Date Immunization Notes Care Provider Marilia stephenson 11-28-2023 influenza virus vaccine, unspecified formulation David Rocha MD Work Phone: [facility] 05-08-2020 Covid (Moderna) [facility] 04-10-2020 Covid ([facility]) [facility] 11-05-2015 Influenza virus vaccine [facility] Payers Date Payer Category Payer Private Health Insurance [facility] [id number] 2024 Self-pay [id number] 2024 Unknown [id number] 2003 Medicare [id number] Unknown [id number] 2.840.1.311927.3.579.2 .462 Unknown [id number] 2.840.1.368656.3.579.2 .462 Unknown [id number] 2.840.1.042817.3.579.2 .462 Unknown [id number] .840.1.147842.3.579.2 .462 Unknown [id number] .840.1.516155.3.579.2 .462 Unknown [id number] 2.840.1.533776.3.579.2 .462 Unknown [id number] 2.840.1.535311.3.579.2 .462 Unknown [id number] 2.840.1.657125.3.579.2 .462 Unknown [id number] .840.1.017196.3.579.2 .462 Unknown [id number] .840.1.277797.3.579.2 .462 Unknown [id number] 2.840.1.303323.3.579.2 .462 Unknown [id number] 2.840.1.037807.3.579.2 .462 Unknown [id number] .840.1.115735.3.579.2 .462 Unknown [id number] .840.1.065583.3.579.2 .462 Unknown [id number] .840.1.425106.3.579.2 .462 Unknown [id number] 2.840.1.315483.3.579.2 .462 Unknown [id number] 2.840.1.930172.3.579.2 .462 Unknown [id number] 2.16.840.1.403310.3.579.2 .462 Unknown [id number] 2.16.840.1.598965.3.579.2 .462 Unknown [id number] 2.16.840.1.772041.3.579.2 .462 Unknown [id number] 2.16.840.1.023531.3.579.2 .462 Unknown [id number] 2.16.840.1.466474.3.579.2 .462 Unknown [id number] 2.16.840.1.469835.3.579.2 .462 Unknown [id number] 2.16.840.1.997525.3.579.2 .462 Unknown [id number] 2.16.840.1.895258.3.579.2 .462 Unknown [id number] 2.16.840.1.494872.3.579.2 .462 Social History Date Type Detail Facility Start: 07-04-2016 End: 07-19-2022 Tobacco smoking status NHIS Unknown if ever smoked [facility] Start: 1940 Sex Assigned At Female [facility] Start: 1940 Sex assigned at Not on file [facility] Gender identity Not on file [facility] Progress note 10-05-2024 Note Date & Type Note Facility 10-05-2024 Note HNO ID: [id number] Author: DAVID ROCHA MD Service: ? Author Type: Physician Type: Progress Notes Filed: 10/05/2024 14:54 Note Text: URGENT CARE [facility] Alison Santacruz is a 84 year old [...] for the following reason(s): Benign exam Procedures [facility] History of Present illness Narrative 10-05-2024 [...] Benign exam Procedures documented in this encounter [facility] Clinical Note 04-16-2024 Note Date & Type Note Facility 04-16-2024 [facility] Medical Records Department [address] [place] [address] History Physical Exam 04/16/24 1511 MR#: [id number] Acct: [id number] Name: ALISON SANTACRUZ Rep #: [id number] : 1940 83 From: Willie Shook DO PCP: Dr. Eddie Waggoner MD Status:[facility] Location: [place] [address] HPI - General General Date of Admission: [...] She feels weak and fatigued. [facility] Medical History Arthritis Gastric reflux Wears hearing [...] DAILY 07/14/22 12/15/23 Hi story glucosamine 750 [id number] 1 tab PO DAILY 07/14/22 04/15/24 History [...] Verified 04/16/24 13:29 paroxetine (From Paxil) AdvReac Qulin poorly Verified 04/16/24 13:29 rosuvastatin (From Crestor) [...] rectal bleeding, tenes (more content not included)... [facility] Evaluation note Note Date & Type Note Facility Evaluation note No assessment information availa ble [facility] Work Phone: Evaluation note Note Date & Type Note Facility Evaluation note Diagnosis Onset Date Leukopenia resolved Leukopenia resolved [facility] Work Phone: Evaluation note Note Date & Type Note Facility Evaluation note Diagnosis Influenza-like illness- Primary Influenza with other respiratory manifestations Nausea Nausea alone documented in this encounter [facility] Chief Complaint and Reason for Visit Chief Complaint RIGHT ANKLE Chief Complaint OSTEO Chief Complaint OSTEO Amb Documentation NEW PT - LEUKOPENIA lab 1WK REVIEW LABS E ORDER Reason for Visit Leukopenia Leukopenia Chief Complaint RLQ ABD PAIN/ ADD LA BWORK FOR @[facility] Advance Directives No Advanced Directives Records Found Advance Directive Response Recorded Date/ Time Living Will Yes July 20, 2016 1 0:50am Power of Airline Reservation Agent Yes July 20, 2016 10:50am Advance Directive Response Recorded Date/ Time Living Will Yes July 20, 2016 9 :50am Power of Airline Reservation Agent Yes July 20, 2016 9:50am Family History [...] MD Family Provider Active Roxanna Lemus , DO Primary Care Provider Active Team [...] or prosecute any alcohol or drug abuse patient.[facility] Reason for Visit (unrecogniz ed section and content) Reason Comments Flu Like Symptoms X 3 days-diarrhea, s tomach hurts, nausea, hot and feels dizzy INFORMATION SOURCE (unrecogn ized section and content) DATE CREATED AUTHOR 10/07/2024 [facility] DATE CREATED AUTHOR AUTHOR'S ORGANIZ ATION 01/10/2025 [facility] FOR RECORDS PERTAINING TO PATIENTS WHO [...] BE BASED ON THE PRIMARY CLINICAL RECORDS. [employer] provides no warranty or guarantee of the accuracy or completeness of information in this document.
== END | disposition home or self-care (01) ==
LOC: POLAB3 10:06
PROVIDERS: PCP Family Medicine Geriatric Medicine; Visit Provider Family Medicine Geriatric Medicine
DX: R06.2 Wheezing (principal)
CPT/HCPCS: 87631

== ENCOUNTER → 2025-03-04 | Outpatient (CLI) | payer MEDICARE, OTHER, SELFPAY ==
[2025-03-04 17:23] LABS: Mucous, Urine 0 SEEN /hpf (<or=2+)
[2025-03-04 17:54] LABS: Hematocrit 38.0 % (37-47); Hemoglobin 12.9 g/dL (12.0-15.0); Immature Granulocytes Count 0.020 X10^3/uL (0.0-0.0); Mean Corp Hgb Conc 33.9 g/dL (32-36); Mean Corpuscular Volume 90.3 fL (81-99); Mean Platelet Vol. 8.4 fl (6.2-12.0); NRBC Flagged by Analyzer 0 % (0-5); Platelet Count 203 K/mm3 (150-450); RBC Distribution Width CV 12.0 % (11.6-14.6); RBC Distribution Width SD 39.7 fl (35.1-43.9); Red Blood Count 4.21 M/mm3 (4.2-5.4); White Blood Count 4.0 K/mm3 (4.4-11.0)
[2025-03-04 17:55] LABS: Color, Urine Straw (Yellow); Glucose, Dipstick Normal (Normal); Ketone-Dipstick Negative (Negative); Leukocyte Esterase-Dipstick Negative /ul (Negative); Nitrite-Dipstick Negative (Negative); Occult Blood-Urine Negative /ul (Negative); Protein-Dipstick Negative (Negative); Specific Gravity, Urine 1.010 (1.002-1.030); Urine Bilirubin Dipstick Negative (Negative)
[2025-03-04 18:27] LABS: Red Blood Cells-Urine 0-5 SEEN /hpf (0-5); Squamous Epithelial Cells - UA 0-5 SEEN /hpf (5-10)
[2025-03-04 19:05] LABS: AST(SGOT) 25 U/L (<=31); Alanine Aminotransfer ALT/SGPT 18 U/L (<=34); Albumin, Serum 4.4 g/dL (3.4-4.8); Alkaline Phosphatase 80 U/L (35-104); Anion Gap 10 (7-18); BUN 16 mg/dL (4-19); BUN/Creat Ratio 20.7 RATIO (10-20); Calcium,Total 9.4 mg/dL (7.6-11.0); Carbon Dioxide 26.4 mmol/L (20.0-29.0); Chloride 105 mmol/L (96-106); Globulin 2.5 g/dL (2.2-4.2); Glucose 87 mg/dL (70-99); Potassium 3.9 mmol/L (3.5-5.1)
[2025-03-04 19:30] LABS: Amylase 63 U/L (28-100); Lipase 40 U/L (13-75)
[2025-03-05 01:21] LABS: Xtra Tube Kwok EXTRA TUBE
== END | disposition home or self-care (01) ==
LOC: POLAB3 17:21
PROVIDERS: PCP Family Medicine Geriatric Medicine; Visit Provider Family Medicine Geriatric Medicine
DX: R10.9 Unspecified abdominal pain (principal); N39.0 Urinary tract infection, site not specified
CPT/HCPCS: 36415; 80053; 81001; 82150; 83690; 85025; 87086; 87088

== ENCOUNTER → 2025-03-05 | Outpatient (CLI) | payer MEDICARE, OTHER, SELFPAY ==
--- OUTSIDE RECORDS SUMMARY | 2025-03-05 09:01 | XMS RPT_ITS | CCD ---
Author Organization [facility] Care Team Providers Care Physician Credentialing Specialist Name Role Phone DO Roxanna Lemus Primary Care Provider [phone] Radha Ascencio Attending Provider UnavailDO Roxanna Holguin Referring Provider Dr. Vernon Garrett Attending Provider [phone] Unavailable Primary Care Provider UnavailDAVID Griffin Attending Unavailable Rosaline, Chalon Attending Unavailable Rosaline, Chalon Primary Care Unavailable Rosaline, Chalon Referring Unavailable Rosaline, Chalon Primary Care Unavailable Rajwinder Luis Attending Unavailable Toby, Rajwinder Referring Unavailable Chris Phillips Attending Unavailabl e Rosaline, Chalon Primary Care Unavailable Rajan, Rudi Chi Attending Unavailable Arjan, Rudi Chi Primary Care Unavailable Rajan, Rudi Chi Referring Unavailable Rosaline, Chalon Primary Care Unavailable Rajwinder Luis Attending Unavailable BladimirnasovRajwinder Referring Unavailable Rosaline, Chalon Attending Unavailable Rosaline, Chalon Primary Care Unavailable Rosaline, Chalon Referring Unavailable Rajan, Rudi Chi Attending [...] Referring Unavailable Marii Perales Attending Unavailable Rajan, Urdi Chi Primary Care Unavailable Rajan, Rudi Chi [...] Triiodobenzoic Acids Allergy to substance 06-30-19 Rash [facility] (2 sources) atorvastatin Drug Allergy 07-26-19 Upset Stomach [facility] (2 sources) PARoxetine Drug Allergy 07-26-19 Rousseau poorly [facility] (2 sources) rosuvastatin Drug Allergy 07-26-19 Upset Stomach [facility] (2 sources) Simvastatin Drug Allergy 07-26-19 Upset Stomach [facility] (2 sources) HMG-CoA reductase inhibitor; Translations: [IKINQPY-LAX-OGQ REDUCTASE INHIBITORS] Drug Intolerance 10-06-19 Intolerance [facility] (1 source) atorvastatin Drug Allergy 01-09-20 [facility] Repository (1 source) buPROPion Drug Allergy 01-09-20 [facility] (1 source) PARoxetine Drug Allergy 01-09-20 [facility] (1 source) rosuvastatin Drug Allergy 01-09-20 [facility] (1 source) Sertraline Drug Allergy 01-09-20 [facility] (1 source) Simvastatin Drug Allergy 01-09-20 [facility] (1 source) Iodinated Contrast Media Drug allergy (disorder) 01-09-20 [facility] Medications Current Medications Medication [...] MG PO DAILY July 13, 2022 11:00pm Sxbsarhk-Vqca-Vvm0-C- Liset-Bosw (Osteo Bi-Flex Triple Strength) 1 EACH tablet (5 sources) Start: 07-04-2016 take 1 tablet by mouth once daily Dhvxrxfz-Nzcg-Ilr5-C- Liset-Bosw (Osteo Bi-Flex Triple Strength) 1 EACH tablet Active 2 EACH PO DAILY July 04, 2016 10:20am Start: 07-04-2016 End: 07-14-2022 take 1 tablet by mouth once daily Ofmfrjdq-Njfd-Dyp5-C-Liset-Bosw (Osteo Bi -Flex Triple Strength) 1 EACH tablet Discontinued 2 EACH PO DAILY July 03, 2016 11:00pm July 14, 2022 7:42am Start: 07-04-2016 End: 07-14-2022 take 1 tablet by mouth once daily Hbyqxdor-Sikd-Ihp5-C-Liset-Bosw (Osteo Bi -Flex Triple Strength) 1 EACH tablet Discontinued 2 EACH PO DAILY July 04, 2016 12:00am July 14, 2022 8:42am Start: 07-04-2016 take 1 tablet by edna th once daily Alusdtew-Skuu-Ihw3-C-Liset-Bosw (Osteo Bi -Flex Triple Strength) 1 EACH tablet Active 2 EACH PO DAILY July 04, 2016 12:00am Lrvlatfo-Jmqw-Lwc2-C-Liset-Osmany sw (Osteo Bi-Flex Triple Strength) 750 mg-644 mg- 30 mg-1 mg tablet (2 sources) Start: 07-14-2022 take 1 tablet by mouth once daily Bqxhfwyq-Dpbu-Hml9-C-Liset-Bosw (Osteo Bi-Flex Triple Strength) 750 mg-644 mg- 30 mg-1 mg tablet Active 1 TABLET PO DAILY July 14, 2022 7:40am Start: 07-14-2022 take 1 tablet by edna th once daily Dnbbjqbw-Qhxu-Irf9-C-Liset-Bosw (Osteo Bi -Flex Triple Strength) 750 mg-644 [...] TABLET PO DAILY July 14, 2022 12:00am [place] 6-Wlc-Xhc-Fish Oil (Fish Oil) 60-90-500 mg capsule (2 sources) Start: 07-14-2022 take 1 capsule by mouth once daily [place] 2-Ehe-Uwx-Fish Oil (Fish Oil) 60-90-500 mg capsule Active 1 CAP PO DAILY July 13, 2022 11:00pm Start: 07-14-2022 take 1 capsule by mo [facility] once daily [place] 1-Lpc-Dxg-Fish Oil (Fish Oil) 60-90-500 mg capsule Active [...] 7:42am docusate sodium 50 mg / sennosides, skilled nursing 8.6 mg oral tablet (10 sources) Start: [...] without Contrasto n 01-08-2025 Brain/Head without Contrast [facility] Imaging Services [address] [place] [address] [id number] Brain/Head without Contrast MR#: [id number] Acct: [id number] Name: ALISON SANTACRUZ Rep #: [id number] : 1940 F 84 From: Bowen Cole MD PCP: Dr. Rudi Tolentino MD Status: REG CLI Study: Brain/Head without Contrast Date of Exam: 07/28 Exam# [id number] Ordering Dr: Rudi Tolentino MD PROCEDURE: CT [...] mineralization in the bilateral basal ganglia. Absent [place] ocular lenses. Intact skull base and calvarium. Well-aerated paranasal sinuses and mastoid air cells. CT/Brain/Head without Contrast IMPRESSION: No acute intracranial abnormality. Reading Location: [facility]UZ[facility]-BM CC: Dr. Rudi Tolentino MD Manager Part: Signed Normal [facility] MR/BMS.BPon 01-08-2025 MR/BMS.BP [address], [address] [place] [address] OFFICE VISIT Date of Service: 01/08/25 MR#: [id number] Acct: [id number] Name: ALISON SANTACRUZ Rep #: [id number] : 1940 Provider: REESE middleton Age/Sex: 84/F [place] [facility] Status: Signed Intake Vital Signs 10/25/24 09:50 [...] (From Paxil) Adverse Reaction (Verified 01/08/25 08:56) Rousseau poorly rosuvastatin (From Crestor) Adverse Reaction (Verified [...] this month and hit head; c/o dizzy) [facility] Medical History (Updated 01/09/25 @ 07:12 by [...] History (Updated 01/08/25 @ 09:05 by Georgie Middleton) History of cataract surgery Hx of colonoscopy [...] to frequent (more content not included)... Normal [facility] Stool Occult Blood iFOBon STOB Negative Normal [facility] Comment on above: Performed By: #### L 100.0100, L500.4050 #### [facility] Laboratory [address] [place], [address] CBC W/Diff, Automatedon 11-05 Absolute Lymph 1.58 X10 3/uL Normal 0.83-4.51 [facility] Comment on above: Performed By: #### L 100.0100, M100.678, L500.4050 ####[facility] [address] [place], [address] Absolute Neut 3.2 X10 3/uL Normal 2.0-7.7 [facility] Comment on above: Performed By: #### L 100.0100, M100.678, L500.4050 ####[facility] [address] [place], [address] Basophils/100 WBC (Bld) 0.9 % Normal 0-1 [facility] Comment on above: Performed By: #### L 100.0100, M100.678, L500.4050 ####[facility] [address], [address] Eosinophils/100 WBC (Bld) 3.7 % Normal 0-5 [facility] Comment on above: Performed By: #### L 100.0100, M100.678, L500.4050 ####[facility] [address] [place], [address] Erythrocyte distribution width (RBC) [Ratio] 11.9 % Normal 11.6-14.6 [facility] Comment on above: Performed By: #### L 100.0100, M100.678, L500.4050 ####[facility] [address], [address] Hematocrit (Bld) [Volume fraction] 35.0 % Low 37-47 [facility] Comment on above: Performed By: #### L 100.0100, M100.678, L500.4050 ####[facility] [address] [place], [address] Hemoglobin (Bld) [Mass/Vol] 12.3 g/dL Normal 12.0-15.0 [facility] Comment on above: Performed By: #### L 100.0100, M100.678, L500.4050 ####[facility] [address] [place], [address] IG% 0.500 Normal 0.0-0.9 [facility] Comment on above: Result Comment: IG% - Immature Granulocytes (promyelocytes, myelocytes and metamyelocytes) > 1% indicates that a LEFT SHIFT is Present. Performed By: #### L 100.0100, M100.678, L500.4050 ####[facility] [address] [place], [address] Lymphocytes/100 WBC (Bld) 28.9 % Normal 19-41 [facility] Comment on above: Performed By: #### L 100.0100, M100.678, L500.4050 ####[facility] [address] [place], [address] MCH (RBC) [Entitic mass] 30.9 pg Normal 27.0-32.0 [facility] Comment on above: Performed By: #### L 100.0100, M100.678, L500.4050 ####[facility] [address] [place], [address] MCHC (RBC) [Mass/Vol] 35.1 g/dL Normal 32-36 [facility] Comment on above: Performed By: #### L 100.0100, M100.678, L500.4050 ####[facility] [address] [place], [address] MCV (RBC) [Entitic vol] 87.9 fL Normal 81-99 [facility] Comment on above: Performed By: #### L 100.0100, M100.678, L500.4050 ####[facility] [address] [place], [address] Monocytes/100 WBC (Bld) 6.8 % Normal 0-10 [facility] Comment on above: Performed By: #### L 100.0100, M100.678, L500.4050 ####[facility] [address] [place], [address] Neutrophils/100 WBC (Bld) 59.2 % Normal 47-70 [facility] Comment on above: Performed By: #### L 100.0100, M100.678, L500.4050 ####[facility] [address] [place], [address] Nucleated RBC (Bld) [#/Vol] 0 10*3/uL Normal 0-5 [facility] Comment on above: Performed By: #### L 100.0100, M100.678, L500.4050 ####[facility] [address] [place], [address] Platelet mean volume (Bld) [Entitic vol] 8.2 fL Normal 6.2-12.0 [facility] Comment on above: Performed By: #### L 100.0100, M100.678, L500.4050 ####[facility] [address] [place], [address] Platelets (Bld) [#/Vol] 189 10*3/uL Normal 150-450 [facility] Comment on above: Performed By: #### L 100.0100, M100.678, L500.4050 ####[facility] [address] [place], [address] RBC (Bld) [#/Vol] 3.98 10*6/uL Low 4.2-5.4 [facility] Comment on above: Performed By: #### L 100.0100, M100.678, L500.4050 ####[facility] [address] [place], [address] RDW SD 38.0 fl Normal 35.1-43.9 [facility] Comment on above: Performed By: #### L 100.0100, M100.678, L500.4050 ####[facility] [address] [place], [address] WBC (Bld) [#/Vol] 5.5 10*3/uL Normal 4.4-11.0 [facility] Comment on above: Performed By: #### L 100.0100, M100.678, L500.4050 ####[facility] [address] [place], [address] Comprehensive Metabolic Prof ilon 11-28-2024 Albumin [Mass/Vol] 4.4 g/dL Normal 3.4-4.8 [facility] Comment on above: Performed By: #### L 100.0100, M100.678, L500.4050 ####[facility] [address] [place], [address] Albumin/Globulin [Mass ratio] 2.0 {ratio} Normal 0.9-2.4 [facility] Comment on above: Performed By: #### L 100.0100, M100.678, L500.4050 ####[facility] [address] [place], [address] ALK PHOS 73 U/L Normal 35-104 [facility] Comment on above: Performed By: #### L 100.0100, M100.678, L500.4050 ####[facility] [address] [place], [address] ALT [Catalytic activity/Vol] 17 U/L Normal <=34 [facility] Comment on above: Performed By: #### L 100.0100, M100.678, L500.4050 ####[facility] [address] [place], [address] AST [Catalytic activity/Vol] 22 U/L Normal <=31 [facility] Comment on above: Performed By: #### L 100.0100, M100.678, L500.4050 ####[facility] [address] [place], [address] Bilirubin [Mass/Vol] 0.49 mg/dL Normal 0.00-1.30 [facility] Comment on above: Performed By: #### L 100.0100, M100.678, L500.4050 ####[facility] [address] [place], [address] BUN/CRE 18.9 RATIO Normal 10-20 [facility] Comment on above: Performed By: #### L 100.0100, M100.678, L500.4050 ####[facility] [address] [place], [address] Calcium [Mass/Vol] 9.0 mg/dL Normal 7.6-11.0 [facility] Comment on above: Performed By: #### L 100.0100, M100.678, L500.4050 ####[facility] [address] [place], [address] Chloride [Moles/Vol] 103 mmol/L Normal 98-108 [facility] Comment on above: Performed By: #### L 100.0100, M100.678, L500.4050 ####[facility] [address] [place], [address] CO2 [Moles/Vol] 26.7 mmol/L Normal 21.0-32.0 [facility] Comment on above: Performed By: #### L 100.0100, M100.678, L500.4050 ####[facility] [address] [place], [address] Creatinine [Mass/Vol] 0.79 mg/dL Normal 0.70-1.20 [facility] Comment on above: Performed By: #### L 100.0100, M100.678, L500.4050 ####[facility] [address] [place], [address] GAP 10 Normal 5-15 [facility] Comment on above: Performed By: #### L 100.0100, M100.678, L500.4050 ####[facility] [address] [place], [address] GFR/1.73 sq M.predicted among non-blacks MDRD (S/P/Bld) [Vol rate/Area] 73 mL/min/{1.73_m2} Normal >60 [facility] Comment on above: Result Comment: mL/m in/1.73m2 CKD-EPI Creatinine Equation (2020) Performed By: #### L 100.0100, M100.678, L500.4050 ####[facility] [address] [place], [address] Globulin (S) [Mass/Vol] 2.2 g/dL Normal 2.2-4.2 [facility] Comment on above: Performed By: #### L 100.0100, M100.678, L500.4050 ####[facility] [address] [place], [address] Glucose [Mass/Vol] 117 mg/dL High 70-99 [facility] Comment on above: Performed By: #### L 100.0100, M100.678, L500.4050 ####[facility] [address] [place], [address] Potassium [Moles/Vol] 3.8 mmol/L Normal 3.3-5.1 [facility] Comment on above: Performed By: #### L 100.0100, M100.678, L500.4050 ####[facility] [address] [place], [address] Sodium [Moles/Vol] 140 mmol/L Normal 133-145 [facility] Comment on above: Performed By: #### L 100.0100, M100.678, L500.4050 ####[facility] [address] [place], [address] T PROT 6.6 g/dL Normal 5.9-8.4 [facility] Comment on above: Performed By: #### L 100.0100, M100.678, L500.4050 ####[facility] [address] [place], [address] Urea nitrogen [Mass/Vol] 15 mg/dL Normal 4-19 [facility] Comment on above: Performed By: #### L 100.0100, M100.678, L500.4050 ####[facility] [address] [place], [address] M100.678on 11-28-2024 M100.678 Pending SARS-CoV-2 (COVID 19) Negative INFLUENZA A Negative INFLUENZA B Negative RSV PCR Negative Normal [facility] Comment on above: Performed By: #### L 100.0100, M100.678, L500.4050 ####[facility] [address] [place], [address] Inital Evaluation (1) - PTon 10-29-2024 Inital Evaluation (1) - PT [facility] Physical Therapy Health[address] [place] [address] / REHABILITATION SERVICES INITIAL EVALUATION MR#: [id number] Acct: [id number] Name: ALISON SANTACRUZ Rep #: [id number] : 1940 84 From: Brice Walter DPT, OCS, CSCS Referring Dr.: Dr. Rudi Tolentino MD Status: REG RCR Insurance: MEDICARE PART A B [facility] Patient's Visit Information Visit Information [...] sick. No longer doing that. Lives at [facility] for assisted living. now n allergies. back [...] to be FAXED BACK to us at [phone] for Medicare purposes. For Medicare only, by signing this I certify the plan of care. Please let me know if there are questions or concerns regarding this plan of care. Physician Signature: Date: 10/29/24 1214 CC: Dr. Rudi Tolentino MD EBG Signed Normal [facility] Cardiology Visit Reporton Cardiology Visit Report [facility] [address] [place] [address] OFFICE VISIT Date of Service: 10/25/24 MR#: [id number] Acct: [id number] Name: ALISON SANTACRUZ Rep #: [id number] : 1940 Provider: REESE landon Age/Sex: 84/F [place] [facility] Status: Signed HPI HPI History of [...] air Intake Visit Reasons: 1 Y FU Palliative Care Specialist Required: No Accompanied by: Is patient in pain?: No Allergies Iodinated Contrast Media Allergy (Verified 10/25/24 10:00) Rash atorvastatin (From Lipitor) Adverse Reaction (Verified 10/25/24 10:00) Upset Stomach bupropion (From Wellbutrin) Adverse Reaction (Verified 10/25/24 10:00) Other paroxetine (From Paxil) Adverse Reaction (Verified 10/25/24 10:00) Rousseau poorly rosuvastatin (From Crestor) Adverse Reaction (Verified [...] Insomnia IB (more content not included)... Normal [facility] L/S Spine Min 4 Viewson 10-05 L/S Spine Min 4 Views [facility] Imaging Services [address] [place], [place] [address] L/S Spine Min 4 Views MR#: [id number] Acct: [id number] Name: ALISON SANTACRUZ Rep #: [id number] : 1940 F 84 From: Steve Wolff MD PCP: Dr. Rudi Tolentino MD Status: REG CLI Study: L/S Spine Min 4 Views Date of Exam: 10/23/24 Exam# [id number] Ordering Dr: Rudi Tolentino MD PROCEDURE: L/S [...] Location: YFN CC: Dr. Rudi Tolentino MD Manager Part: Signed Normal [facility] Ova and Parasites 8623on OP OVA [...] NO OVA, CYSTS, OR PARASITES FOUND. Normal [facility] Comment on above: Performed By: #### L 100.0100, L500.4050 #### [facility] Laboratory [address] [place] [address] 264011 L3410.9992on 10-21-2024 [facility]. COMMENT Normal . [facility] Comment on above: Order Comment: [id number] STOOL CULTURE Result Comment: Test Ordered: [id number] Stool Culture Salmonella/Shigella Screen Note: Final report Reference Range: . Result 1 Comment CB Reference Range: . No Salmonella or Shigella recovered. Campylobacter Culture Note: Final report Reference Range: . Result 1 Comment CB Reference Range: . No Campylobacter species isolated. E coli Shiga Toxin EIA Negative Reference Range: Negative Performed at: [address] [id number] [facility] Care Management: Remi Davis PhD, Phone: [phone] Performed By: #### L 2869.9992 #### [facility] [address] [place] [address]. [place], [place], [id number] L3410.9992on 10-17-2024 [facility]. Normal [facility] Comment on above: Order Comment: [id number] STOOL CX Result Comment: RUSTO L CULTURE Salmonella/Shigella Screen Final Report Result 1 NO Salmonella or Shigella recovered. Campylobacter Culture Final Report Result 1 NO Campylobacter species isolated. E. coli Shiga Toxin EIA [facility] ORIGINAL REPORT ON FILE IN LAB CONTAINS ADDITIONAL TEST SITE INFORMATION. Performed By: #### L 100.0100, L500.4050 #### [facility] [address] [place], [address] [employer] Decub and/or Erecton 10-16-2024 [employer] Decub and/or Erect [facility] Imaging Services [address] [place] [address] [employer] Decub and/or Erect MR#: [id number] Acct: [id number] Name: ALISON SANTACRUZ Rep #: [id number] : 1940 F 84 From: Barbara Huerta MD PCP: Dr. Rudi Tolentino MD Status: REG CLI Study: Abd Inc Decub and/or Erect Date of Exam: 10/16 Exam# [id number] Ordering Dr: Rudi Tolentino MD PROCEDURE: ABD [...] levoscoliosis. IMPRESSION: No acute findings. Reading Location: [id number]ARYTGX-XD CC: Dr. Rudi Tolentino MD Manager Part: Signed Normal [facility] CBC W/Diff, Automatedon 10-04 Absolute Lymph 1.36 X10 3/uL Normal 0.83-4.51 [facility] Comment on above: Performed By: #### L 500.4100, L3890.6301, L501.9520, L506.1001, L500.4050, L100.0100 ####[facility] [address] [place], [address] Absolute Neut 4.4 X10 3/uL Normal 2.0-7.7 [facility] Comment on above: Performed By: #### L 500.4100, L3890.6301, L501.9520, L506.1001, L500.4050, L100.0100 ####[facility] [address] [place], [address] Basophils/100 WBC (Bld) 0.8 % Normal 0-1 [facility] Comment on above: Performed By: #### L 500.4100, L3890.6301, L501.9520, L506.1001, L500.4050, L100.0100 ####[facility] [address] [place], [address] Eosinophils/100 WBC (Bld) 1.4 % Normal 0-5 [facility] Comment on above: Performed By: #### L 500.4100, L3890.6301, L501.9520, L506.1001, L500.4050, L100.0100 ####[facility] [address] [place], [address] Erythrocyte distribution width (RBC) [Ratio] 12.0 % Normal 11.6-14.6 [facility] Comment on above: Performed By: #### L 500.4100, L3890.6301, L501.9520, L506.1001, L500.4050, L100.0100 ####[facility] [address] [place], [address] Hematocrit (Bld) [Volume fraction] 36.4 % Low 37-47 [facility] Comment on above: Performed By: #### L 500.4100, L3890.6301, L501.9520, L506.1001, L500.4050, L100.0100 ####[facility] [address] [place], [address] Hemoglobin (Bld) [Mass/Vol] 12.6 g/dL Normal 12.0-15.0 [facility] Comment on above: Performed By: #### L 500.4100, L3890.6301, L501.9520, L506.1001, L500.4050, L100.0100 ####[facility] [address] [place], [address] IG% 0.300 Normal 0.0-0.9 [facility] Comment on above: Result Comment: IG% - Immature Granulocytes (promyelocytes, myelocytes and metamyelocytes) > 1% indicates that a LEFT SHIFT is Present. Performed By: #### L 500.4100, L3890.6301, L501.9520, L506.1001, L500.4050, L100.0100 ####[facility] [address] [place], [address] Lymphocytes/100 WBC (Bld) 21.4 % Normal 19-41 [facility] Comment on above: Performed By: #### L 500.4100, L3890.6301, L501.9520, L506.1001, L500.4050, L100.0100 ####[facility] [address] [place], [address] MCH (RBC) [Entitic mass] 30.9 pg Normal 27.0-32.0 [facility] Comment on above: Performed By: #### L 500.4100, L3890.6301, L501.9520, L506.1001, L500.4050, L100.0100 ####[facility] [address] [place], [address] MCHC (RBC) [Mass/Vol] 34.6 g/dL Normal 32-36 [facility] Comment on above: Performed By: #### L 500.4100, L3890.6301, L501.9520, L506.1001, L500.4050, L100.0100 ####[facility] [address] [place], [address] MCV (RBC) [Entitic vol] 89.2 fL Normal 81-99 [facility] Comment on above: Performed By: #### L 500.4100, L3890.6301, L501.9520, L506.1001, L500.4050, L100.0100 ####[facility] [address] [place], [address] Monocytes/100 WBC (Bld) 6.3 % Normal 0-10 [facility] Comment on above: Performed By: #### L 500.4100, L3890.6301, L501.9520, L506.1001, L500.4050, L100.0100 ####[facility] [address] [place], [address] Neutrophils/100 WBC (Bld) 69.8 % Normal 47-70 [facility] Comment on above: Performed By: #### L 500.4100, L3890.6301, L501.9520, L506.1001, L500.4050, L100.0100 ####[facility] [address] [place], [address] Nucleated RBC (Bld) [#/Vol] 0 10*3/uL Normal 0-5 [facility] Comment on above: Performed By: #### L 500.4100, L3890.6301, L501.9520, L506.1001, L500.4050, L100.0100 ####[facility] [address] [place], [address] Platelet mean volume (Bld) [Entitic vol] 8.4 fL Normal 6.2-12.0 [facility] Comment on above: Performed By: #### L 500.4100, L3890.6301, L501.9520, L506.1001, L500.4050, L100.0100 ####[facility] [address] [place], [address] Platelets (Bld) [#/Vol] 205 10*3/uL Normal 150-450 [facility] Comment on above: Performed By: #### L 500.4100, L3890.6301, L501.9520, L506.1001, L500.4050, L100.0100 ####[facility] [address] [place], [address] RBC (Bld) [#/Vol] 4.08 10*6/uL Low 4.2-5.4 [facility] Comment on above: Performed By: #### L 500.4100, L3890.6301, L501.9520, L506.1001, L500.4050, L100.0100 ####[facility] [address] [place], [address] RDW SD 39.3 fl Normal 35.1-43.9 [facility] Comment on above: Performed By: #### L 500.4100, L3890.6301, L501.9520, L506.1001, L500.4050, L100.0100 ####[facility] [address] [place], [address] WBC (Bld) [#/Vol] 6.4 10*3/uL Normal 4.4-11.0 [facility] Comment on above: Performed By: #### L 500.4100, L3890.6301, L501.9520, L506.1001, L500.4050, L100.0100 ####[facility] [address] [place], [address] Comprehensive Metabolic Prof ilon 10-16-2024 Albumin [Mass/Vol] 4.7 g/dL Normal 3.4-4.8 [facility] Comment on above: Performed By: #### L 500.4100, L3890.6301, L501.9520, L506.1001, L500.4050, L100.0100 ####[facility] [address] [place], [address] Albumin/Globulin [Mass ratio] 1.9 {ratio} Normal 0.9-2.4 [facility] Comment on above: Performed By: #### L 500.4100, L3890.6301, L501.9520, L506.1001, L500.4050, L100.0100 ####[facility] [address] [place], [address] ALK PHOS 64 U/L Normal 35-104 [facility] Comment on above: Performed By: #### L 500.4100, L3890.6301, L501.9520, L506.1001, L500.4050, L100.0100 ####[facility] [address] [place], [address] ALT [Catalytic activity/Vol] 18 U/L Normal <=34 [facility] Comment on above: Performed By: #### L 500.4100, L3890.6301, L501.9520, L506.1001, L500.4050, L100.0100 ####[facility] [address] [place], [address] AST [Catalytic activity/Vol] 19 U/L Normal <=31 [facility] Comment on above: Performed By: #### L 500.4100, L3890.6301, L501.9520, L506.1001, L500.4050, L100.0100 ####[facility] [address] [place], [address] Bilirubin [Mass/Vol] 0.82 mg/dL Normal 0.00-1.30 [facility] Comment on above: Performed By: #### L 500.4100, L3890.6301, L501.9520, L506.1001, L500.4050, L100.0100 ####[facility] [address] [place], [address] BUN/CRE 15.0 RATIO Normal 10-20 [facility] Comment on above: Performed By: #### L 500.4100, L3890.6301, L501.9520, L506.1001, L500.4050, L100.0100 ####[facility] [address] [place], [address] Calcium [Mass/Vol] 9.4 mg/dL Normal 7.6-11.0 [facility] Comment on above: Performed By: #### L 500.4100, L3890.6301, L501.9520, L506.1001, L500.4050, L100.0100 ####[facility] [address] [place], [address] Chloride [Moles/Vol] 101 mmol/L Normal 98-108 [facility] Comment on above: Performed By: #### L 500.4100, L3890.6301, L501.9520, L506.1001, L500.4050, L100.0100 ####[facility] [address] [place], [address] CO2 [Moles/Vol] 25.9 mmol/L Normal 21.0-32.0 [facility] Comment on above: Performed By: #### L 500.4100, L3890.6301, L501.9520, L506.1001, L500.4050, L100.0100 ####[facility] [address] [place], [address] Creatinine [Mass/Vol] 0.87 mg/dL Normal 0.70-1.20 [facility] Comment on above: Performed By: #### L 500.4100, L3890.6301, L501.9520, L506.1001, L500.4050, L100.0100 ####[facility] [address] [place], [address] GAP 14 Normal 5-15 [facility] Comment on above: Performed By: #### L 500.4100, L3890.6301, L501.9520, L506.1001, L500.4050, L100.0100 ####[facility] [address] [place], [address] GFR/1.73 sq M.predicted among non-blacks MDRD (S/P/Bld) [Vol rate/Area] 65 mL/min/{1.73_m2} Normal >60 [facility] Comment on above: Result Comment: mL/m in/1.73m2 CKD-EPI Creatinine Equation (2020) Performed By: #### L 500.4100, L3890.6301, L501.9520, L506.1001, L500.4050, L100.0100 ####[facility] [address] [place], [address] Globulin (S) [Mass/Vol] 2.5 g/dL Normal 2.2-4.2 [facility] Comment on above: Performed By: #### L 500.4100, L3890.6301, L501.9520, L506.1001, L500.4050, L100.0100 ####[facility] [address] [place], [address] Glucose [Mass/Vol] 93 mg/dL Normal 70-99 [facility] Comment on above: Performed By: #### L 500.4100, L3890.6301, L501.9520, L506.1001, L500.4050, L100.0100 ####[facility] [address] [place], [address] Potassium [Moles/Vol] 3.7 mmol/L Normal 3.3-5.1 [facility] Comment on above: Performed By: #### L 500.4100, L3890.6301, L501.9520, L506.1001, L500.4050, L100.0100 ####[facility] [address] [place], [address] Sodium [Moles/Vol] 141 mmol/L Normal 133-145 [facility] Comment on above: Performed By: #### L 500.4100, L3890.6301, L501.9520, L506.1001, L500.4050, L100.0100 ####[facility] [address] [place], [address] T PROT 7.2 g/dL Normal 5.9-8.4 [facility] Comment on above: Performed By: #### L 500.4100, L3890.6301, L501.9520, L506.1001, L500.4050, L100.0100 ####[facility] [address] [place], [address] Urea nitrogen [Mass/Vol] 13 mg/dL Normal 4-19 [facility] Comment on above: Performed By: #### L 500.4100, L3890.6301, L501.9520, L506.1001, L500.4050, L100.0100 ####[facility] [address] [place], [address] Hepatitis C Antibodyon 10-16 Hepatitis C Ab Non-Reactive Normal Nonreactive [facility] Comment on above: Result Comment: Reac tive: Presumptive evidence of antibodies to HCV. Follow CDC recommendations for supplemental testing. Non-Reactive: Antibodies to HCV were not detected; does not exclude the possibility of exposure to HCV Reactive Results are presumptive evidence of antibodies to HCV. Follow CDC recommendations for supplemental testing. Order confirmation testing: HCV Quant by PCR testing - HCVPCR #[id number] Non Reactive: < 0.8 Equivocal: >/= 0.8 to < 1.0 Reactive: >/= 1.[address] [facility] requires that a reactive/equivocal HCV antibody result be sent out for confirmation. HCV Quant by PCR testing. Performed By: #### L 500.4100, L3890.6301, L501.9520, L506.1001, L500.4050, L100.0100 ####[facility] [address] [place], [address] Lipid Profileon 10-16-2024 CHOL:HDL 3.08 Normal [facility] Comment on above: Performed By: #### L 500.4100, L3890.6301, L501.9520, L506.1001, L500.4050, L100.0100 ####[facility] [address] [place], [place], [address]) Cholesterol [Mass/Vol] 249 mg/dL High <=200 [facility] Comment on above: Result Comment: Chol esterol level, Desirable <200 mg/dL Borderline high cholesterol 200-239 mg/dL High cholesterol >=240 mg/dL Recommendations of the NCEP Adult Treatment Panel for the following risk-cutoff thresholds for the [place] population. Performed By: #### L 500.4100, L3890.6301, L501.9520, L506.1001, L500.4050, L100.0100 ####[facility] [address] [place], [address] Cholesterol in HDL [Mass/Vol] 81 mg/dL Normal [facility] Comment on above: Result Comment: Cassie onal Cholesterol Education Program (NCEP) guidelines: <40 mg/dL: Low HDL-cholesterol (major risk factor for CHD) >= 60 mg/dL: High HDL-cholesterol (negative risk factor for CHD) HDL-cholesterol is affected by a number of factors, e.g. smoking, exercise, hormones, sex and age. Performed By: #### L 500.4100, L3890.6301, L501.9520, L506.1001, L500.4050, L100.0100 ####[facility] [address] [place], [address] Cholesterol in LDL [Mass/Vol] 146 mg/dL Normal [facility] Comment on above: Result Comment: Bord ibfqwl=367-707 mg/dL Higher Kznw=079 mg/dL or greater Friedwald Equation for LDL-C Performed By: #### L 500.4100, L3890.6301, L501.9520, L506.1001, L500.4050, L100.0100 ####[facility] [address] [place], [address] Cholesterol in VLDL [Mass/Vol] 22 mg/dL Normal 5-40 [facility] Comment on above: Performed By: #### L 500.4100, L3890.6301, L501.9520, L506.1001, L500.4050, L100.0100 ####[facility] [address] [place], [address] Triglyceride [Mass/Vol] 111 mg/dL Normal [facility] Comment on above: Result Comment: The drugs N-Acetylcysteine and Metamizole may falsely depress this assay. Normal range: <150 mg/dL Borderline High: 150-199 mg/dL High: 200-499 mg/dL Very High: >500 mg/dL Performed By: #### L 500.4100, L3890.6301, L501.9520, L506.1001, L500.4050, L100.0100 ####[facility] [address] [place], [address] Thyroid Stim Hormone (TSH)on 10-16-2024 TSH 1.190 uIU/mL Normal 0.300-4.200 [facility] Comment on above: Performed By: #### L 500.4100, L3890.6301, L501.9520, L506.1001, L500.4050, L100.0100 ####[facility] [address] [place], [address] Vitamin D,25 Hydroxyon 10-16 Vitamin D 25-OH 41.9 ng/mL Normal 30-100 [facility] Comment on above: Result Comment: Adina min D Status Deficiency: <20 ng/mL (50nmol/L) Insufficiency: 20-30 ng/mL (50-75 nmol/L) Sufficiency: 30-100 ng/mL (75-250 nmol/L) Toxicity: >100 ng/mL (>250 nmol/L) Performed By: #### L 500.4100, L3890.6301, L501.9520, L506.1001, L500.4050, L100.0100 ####[facility] [address] [place], [address] Calprotectin, Stoolon [address] 67 ug/g Normal 0-120 [facility] Comment on above: Result Comment: Conc entration Interpretation Follow-Up < 5 - 50 ug/g Normal None >50 -120 ug/g Borderline Re-evaluate in 4-6 weeks >120 ug/g Abnormal Repeat as clinically indicated Performed at: - [address] [id number] [facility] Care Management: Tomi Wilson MD, Phone: [phone] Performed By: #### L 100.0100, L500.4050 #### [facility] [address] [place], [address] 12 Lead EKGon 10-14-2024 12 Lead EKG [facility] Cardiovascular Services [address] [place] [address] 12 Lead EKG 10/14/24 1614 MR#: [id number] Acct: [id number] Name: ALISON SANTACRUZ Rep #: [id number] : 1940 84 From: Alexis Stovall MD [...] Otherwise normal ECG Confirmed by Alexis Stovall ([id number]), purchasing expeditor MELITA WILLOUGHBY ([id number]) on 10/15/2024 11:42:39 AM Referred By: Confirmed By: Alexis Stovall 10/15/24 1142 Date Alexis Stovall MD CC: Dr. Eddie Waggoner MD; Dr. Vasyl Middleton DO Signed Normal [facility] Abdomen/Pelvis W IV Cont ONL Yon 10-14-2024 Abdomen/Pelvis W IV Cont ONLY [facility] Imaging Services [address] [place] [id number] Abdomen/Pelvis W IV Cont ONLY MR#: [id number] Acct: [id number] Name: ALISON SANTACRUZ Rep #: [id number] : 1940 F 84 From: José Osborne MD PCP: Dr. Eddie Waggoner MD Status: REG ER Study: Abdomen/Pelvis W IV Cont ONLY Date of Exam: Exam# [id number] Ordering Dr: Vasyl Middleton DO PROCEDURE: ABDOMEN/PELVIS [...] of the abdomen or pelvis. Reading Location: [id number] CC: Dr. Eddie Waggoner MD; Dr. Vasyl Middleton DO Manager Part: Signed Normal [facility] CBC W/Diff, Automatedon 10-04 Absolute Lymph 0.96 X10 3/uL Normal 0.83-4.51 [facility] Comment on above: Performed By: #### L 100.0100, L500.4050 #### [facility] [address] [place], [address] Absolute Neut 2.0 X10 3/uL Normal 2.0-7.7 [facility] Comment on above: Performed By: #### L 100.0100, L500.4050 #### [facility] [address] [place], [address] Basophils/100 WBC (Bld) 0.9 % Normal 0-1 [facility] Comment on above: Performed By: #### L 100.0100, L500.4050 #### [facility] [address] [place], [address] Eosinophils/100 WBC (Bld) 1.8 % Normal 0-5 [facility] Comment on above: Performed By: #### L 100.0100, L500.4050 #### [facility] [address] [place], [address] Erythrocyte distribution width (RBC) [Ratio] 11.9 % Normal 11.6-14.6 [facility] Comment on above: Performed By: #### L 100.0100, L500.4050 #### [facility] [address] [place], [address] Hematocrit (Bld) [Volume fraction] 35.0 % Low 37-47 [facility] Comment on above: Performed By: #### L 100.0100, L500.4050 #### [facility] [address] [place], [address] Hemoglobin (Bld) [Mass/Vol] 12.0 g/dL Normal 12.0-15.0 [facility] Comment on above: Performed By: #### L 100.0100, L500.4050 #### [facility] [address] [place], [address] IG% 0.600 Normal 0.0-0.9 [facility] Comment on above: Result Comment: IG% - Immature Granulocytes (promyelocytes, myelocytes and metamyelocytes) > 1% indicates that a LEFT SHIFT is Present. Performed By: #### L 100.0100, L500.4050 #### [facility] [address] [place], [address] Lymphocytes/100 WBC (Bld) 28.4 % Normal 19-41 [facility] Comment on above: Performed By: #### L 100.0100, L500.4050 #### [facility] [address] [place], [address] MCH (RBC) [Entitic mass] 30.5 pg Normal 27.0-32.0 [facility] Comment on above: Performed By: #### L 100.0100, L500.4050 #### [facility] [address] [place], [address] MCHC (RBC) [Mass/Vol] 34.3 g/dL Normal 32-36 [facility] Comment on above: Performed By: #### L 100.0100, L500.4050 #### [facility] [address] [place], [address] MCV (RBC) [Entitic vol] 88.8 fL Normal 81-99 [facility] Comment on above: Performed By: #### L 100.0100, L500.4050 #### [facility] [address] [place], [address] Monocytes/100 WBC (Bld) 8.6 % Normal 0-10 [facility] Comment on above: Performed By: #### L 100.0100, L500.4050 #### [facility] [address] [place], [address] Neutrophils/100 WBC (Bld) 59.7 % Normal 47-70 [facility] Comment on above: Performed By: #### L 100.0100, L500.4050 #### [facility] [address] [place], [address] Nucleated RBC (Bld) [#/Vol] 0 10*3/uL Normal 0-5 [facility] Comment on above: Performed By: #### L 100.0100, L500.4050 #### [facility] [address] [place], [address] Platelet mean volume (Bld) [Entitic vol] 8.4 fL Normal 6.2-12.0 [facility] Comment on above: Performed By: #### L 100.0100, L500.4050 #### [facility] [address] [place], [address] Platelets (Bld) [#/Vol] 170 10*3/uL Normal 150-450 [facility] Comment on above: Performed By: #### L 100.0100, L500.4050 #### [facility] [address] [place], [address] RBC (Bld) [#/Vol] 3.94 10*6/uL Low 4.2-5.4 [facility] Comment on above: Performed By: #### L 100.0100, L500.4050 #### [facility] [address] [place], [address] RDW SD 38.3 fl Normal 35.1-43.9 [facility] Comment on above: Performed By: #### L 100.0100, L500.4050 #### [facility] [address] [place], [address] WBC (Bld) [#/Vol] 3.4 10*3/uL Low 4.4-11.0 [facility] Comment on above: Performed By: #### L 100.0100, L500.4050 #### [facility] [address] [place], [address] Comprehensive Metabolic Prof [facility] 10-14-2024 Albumin [Mass/Vol] 4.5 g/dL Normal 3.4-4.8 [facility] Comment on above: Performed By: #### L 100.0100, L500.4050 #### [facility] [address] [place], [address] Albumin/Globulin [Mass ratio] 1.9 {ratio} Normal 0.9-2.4 [facility] Comment on above: Performed By: #### L 100.0100, L500.4050 #### [facility] [address] [place], [address] ALK PHOS 64 U/L Normal 35-104 [facility] Comment on above: Performed By: #### L 100.0100, L500.4050 #### [facility] [address] [place], [address] ALT [Catalytic activity/Vol] 16 U/L Normal <=34 [facility] Comment on above: Performed By: #### L 100.0100, L500.4050 #### [facility] [address] [place], [address] AST [Catalytic activity/Vol] 20 U/L Normal <=31 [facility] Comment on above: Performed By: #### L 100.0100, L500.4050 #### [facility] [address] [place], [address] Bilirubin [Mass/Vol] 0.85 mg/dL Normal 0.00-1.30 [facility] Comment on above: Performed By: #### L 100.0100, L500.4050 #### [facility] [address] [place], [address] BUN/CRE 12.4 RATIO Normal 10-20 [facility] Comment on above: Performed By: #### L 100.0100, L500.4050 #### [facility] [address] [place], [address] Calcium [Mass/Vol] 9.3 mg/dL Normal 7.6-11.0 [facility] Comment on above: Performed By: #### L 100.0100, L500.4050 #### [facility] [address] [place], [address] Chloride [Moles/Vol] 102 mmol/L Normal 98-108 [facility] Comment on above: Performed By: #### L 100.0100, L500.4050 #### [facility] [address] [place], [address] CO2 [Moles/Vol] 23.2 mmol/L Normal 21.0-32.0 [facility] Comment on above: Performed By: #### L 100.0100, L500.4050 #### [facility] [address] [place], [address] Creatinine [Mass/Vol] 0.82 mg/dL Normal 0.70-1.20 [facility] Comment on above: Performed By: #### L 100.0100, L500.4050 #### [facility] [address] [place], [address] ECRCL 49.95 ml/min Low 50-250 [facility] Comment on above: Performed By: #### L 100.0100, L500.4050 #### [facility] [address] [place], [address] GAP 14 Normal 5-15 [facility] Comment on above: Performed By: #### L 100.0100, L500.4050 #### [facility] [address] [place], [address] GFR/1.73 sq M.predicted among non-blacks MDRD (S/P/Bld) [Vol rate/Area] 70 mL/min/{1.73_m2} Normal >60 [facility] Comment on above: Result Comment: mL/m in/1.73m2 CKD-EPI Creatinine Equation (2020) Performed By: #### L 100.0100, L500.4050 #### [facility] [address] [place], [address] Globulin (S) [Mass/Vol] 2.4 g/dL Normal 2.2-4.2 [facility] [facility] Comment on above: Performed By: #### L 100.0100, L500.4050 #### [facility] [address] [place], [address] Glucose [Mass/Vol] 88 mg/dL Normal 70-99 [facility] Comment on above: Performed By: #### L 100.0100, L500.4050 #### [facility] [address] [place], [address] Potassium [Moles/Vol] 4.0 mmol/L Normal 3.3-5.1 [facility] Comment on above: Performed By: #### L 100.0100, L500.4050 #### [facility] [address] [place], [address] Sodium [Moles/Vol] 139 mmol/L Normal 133-145 [facility] Comment on above: Performed By: #### L 100.0100, L500.4050 #### [facility] [address], [address] T PROT 6.9 g/dL Normal 5.9-8.4 [facility] Comment on above: Performed By: #### L 100.0100, L500.4050 #### [facility] [address] [place], [address] Urea nitrogen [Mass/Vol] 10 mg/dL Normal 4-19 [facility] Comment on above: Performed By: #### L 100.0100, L500.4050 #### [facility] [address] [place], [address] Emergency Department Summary on 10-14-2024 Emergency Department Summary [facility] Medical Records Department [address] [place] [address] Emergency Department Summary 10/14/24 MR#: [id number] Acct: [id number] Name: ALISON SANTACRUZ Rep #: [id number] : 1940 84 From: Vasyl Middleton DO [...] she followed up with Dr. Shook's physician technical assistant and they prescribed her some medications which do not appear to be helping. [facility] Medical History Arthritis Gastric reflux Wears hearing [...] Verified 10/14/24 15:37 paroxetine (From Paxil) AdvReac Rousseau poorly Verified 10/14/24 15:37 rosuvastatin (From Crestor) [...] urinary symptom (more content not included)... Normal [facility] Giardia Lamblia, Stool EIAon 10-14-2024 Giardia Stool Negative Normal Negative [facility] Comment on above: Result Comment: Perf ormed at: [facility] [id number] [facility] Care Management: Tomi Wilson MD, Phone: [phone] Performed at: [place] [facility] [id number] Vp Care Management: Remi Davis PhD, Phone: [phone] Performed By: #### L 100.0100, L500.4050 #### [facility] [address] [place], [address] L7000.0750on 10-14-2024 P ELASTASE,FECA 258 Normal >200 [facility] Comment on above: Result Comment: Resu lt Units: ug Elast./g Severe Pancreatic Insufficiency: <100 Moderate Pancreatic Insufficiency: 100 - 200 Normal: >200 Performed By: #### L 100.0100, L500.4050 #### [facility] [address] [place], [address] Lipaseon 10-14-2024 Lipase [Catalytic activity/Vol] 21 U/L Normal 13-75 [facility] Comment on above: Result Comment: Plea se note: LIPASE revised reference range effective 22. New Lipase methodology. Expected to produce lower values than the previous assay method. NEW Reference Range: 13 - 75 U/L Performed By: #### L 100.0100, L500.4050 #### [facility] [address] [place], [address] M100.677on 10-14-2024 M100.677 Negative Normal [facility] Comment on above: Performed By: #### M 100.678, M100.677 ####[facility] [address] [place], [address] M100.678on 10-14-2024 M100.678 Pending SARS-CoV-2 (COVID 19) Negative INFLUENZA A Negative INFLUENZA B Negative RSV PCR Negative Normal [facility] Comment on above: Performed By: #### M 100.678, M100.677 ####[facility] [address] [place], [address] Urinalysis, Completeon 10-14 EPI,SQUAMOUS 0-5 SEEN Normal 5-10 [facility] Comment on above: Order Comment: CLEAN CATCH Performed By: #### L 100.0100, L500.4050 #### [facility] [address] [place], [address] RBC 0-5 SEEN Normal 0-5 [facility] Comment on above: Order Comment: CLEAN CATCH Performed By: #### L 100.0100, L500.4050 #### [facility] [address] [place], [address] WBC 0-5 SEEN Normal 0-5 [facility] Comment on above: Order Comment: CLEAN CATCH Performed By: #### L 100.0100, L500.4050 #### [facility] [address] [place], [address] BACTERIA 0 SEEN Normal None Seen [facility] Comment on above: Order Comment: CLEAN CATCH Performed By: #### L 100.0100, L500.4050 #### [facility] [address] [place], [address] Mucus Ql (Urine sed) 0 SEEN Normal [facility] Comment on above: Order Comment: CLEAN CATCH Performed By: #### L 100.0100, L500.4050 #### [facility] [address] [place], [address] CDIFF (PCR)on 10-12-2024 CDIFF Pending 027 027 NAP1-B1 Presumptive Negative *for epidemiolologic???use C. Diff PCR Negative- No toxigenic C. Diff Detected Normal [facility] Comment on above: Performed By: #### L 100.0100, L500.4050 #### [facility] [address] [place], [address] CBC W/Diff, Automatedon 08-0 8-2024 Absolute Lymph 0.79 X10 3/uL Low 0.83-4.51 [facility] Comment on above: Performed By: #### L 100.0100, L500.4050 #### [facility] [address] [place], [address] Absolute Neut 2.3 X10 3/uL Normal 2.0-7.7 [facility] Comment on above: Performed By: #### L 100.0100, L500.4050 #### [facility] [address] [place], [address] Basophils/100 WBC (Bld) 0.9 % Normal 0-1 [facility] Comment on above: Performed By: #### L 100.0100, L500.4050 #### [facility] [address] [place], [address] Eosinophils/100 WBC (Bld) 1.7 % Normal 0-5 [facility] Comment on above: Performed By: #### L 100.0100, L500.4050 #### [facility] [address] [place], [address] Erythrocyte distribution width (RBC) [Ratio] 11.8 % Normal 11.6-14.6 [facility] Comment on above: Performed By: #### L 100.0100, L500.4050 #### [facility] [address] [place], [address] Hematocrit (Bld) [Volume fraction] 35.2 % Low 37-47 [facility] Comment on above: Performed By: #### L 100.0100, L500.4050 #### [facility] [address] [place], [address] Hemoglobin (Bld) [Mass/Vol] 11.9 g/dL Low 12.0-15.0 [facility] Comment on above: Performed By: #### L 100.0100, L500.4050 #### [facility] [address] [place], [address] IG% 0.600 Normal 0.0-0.9 [facility] Comment on above: Result Comment: IG% - Immature Granulocytes (promyelocytes, myelocytes and metamyelocytes) > 1% indicates that a LEFT SHIFT is Present. Performed By: #### L 100.0100, L500.4050 #### [facility] [address] [place], [address] Lymphocytes/100 WBC (Bld) 22.5 % Normal 19-41 [facility] Comment on above: Performed By: #### L 100.0100, L500.4050 #### [facility] [address] [place], [address] MCH (RBC) [Entitic mass] 30.5 pg Normal 27.0-32.0 [facility] Comment on above: Performed By: #### L 100.0100, L500.4050 #### [facility] [address] [place], [address] MCHC (RBC) [Mass/Vol] 33.8 g/dL Normal 32-36 [facility] Comment on above: Performed By: #### L 100.0100, L500.4050 #### [facility] [address] [place], [address] MCV (RBC) [Entitic vol] 90.3 fL Normal 81-99 [facility] Comment on above: Performed By: #### L 100.0100, L500.4050 #### [facility] [address] [place], [address] Monocytes/100 WBC (Bld) 7.7 % Normal 0-10 [facility] Comment on above: Performed By: #### L 100.0100, L500.4050 #### [facility] [address] [place], [address] Neutrophils/100 WBC (Bld) 66.6 % Normal 47-70 [facility] Comment on above: Performed By: #### L 100.0100, L500.4050 #### [facility] [address] [place], [address] Nucleated RBC (Bld) [#/Vol] 0 10*3/uL Normal 0-5 [facility] Comment on above: Performed By: #### L 100.0100, L500.4050 #### [facility] [address] [place], [address] Platelet mean volume (Bld) [Entitic vol] 8.2 fL Normal 6.2-12.0 [facility] Comment on above: Performed By: #### L 100.0100, L500.4050 #### [facility] [address] [place], [address] Platelets (Bld) [#/Vol] 163 10*3/uL Normal 150-450 [facility] Comment on above: Performed By: #### L 100.0100, L500.4050 #### [facility] [address] [place], [address] RBC (Bld) [#/Vol] 3.90 10*6/uL Low 4.2-5.4 [facility] Comment on above: Performed By: #### L 100.0100, L500.4050 #### [facility] [address] [place], [address] RDW SD 38.6 fl Normal 35.1-43.9 [facility] Comment on above: Performed By: #### L 100.0100, L500.4050 #### [facility] [address] [place], [address] WBC (Bld) [#/Vol] 3.5 10*3/uL Low 4.4-11.0 [facility] Comment on above: Performed By: #### L 100.0100, L500.4050 #### [facility] [address] [place], [address] Comprehensive Metabolic Prof ilon 10-11-2024 Albumin [Mass/Vol] 4.5 g/dL Normal 3.4-4.8 [facility] Comment on above: Performed By: #### L 100.0100, L500.4050 #### [facility] [address] [place], [address] Albumin/Globulin [Mass ratio] 1.8 {ratio} Normal 0.9-2.4 [facility] Comment on above: Performed By: #### L 100.0100, L500.4050 #### [facility] [address] [place], [address] ALK PHOS 66 U/L Normal 35-104 [facility] Comment on above: Performed By: #### L 100.0100, L500.4050 #### [facility] [address] [place], [address] ALT [Catalytic activity/Vol] 16 U/L Normal <=34 [facility] Comment on above: Performed By: #### L 100.0100, L500.4050 #### [facility] [address] [place], [address] AST [Catalytic activity/Vol] 22 U/L Normal <=31 [facility] Comment on above: Performed By: #### L 100.0100, L500.4050 #### [facility] [address] [place], [address] Bilirubin [Mass/Vol] 1.07 mg/dL Normal 0.00-1.30 [facility] Comment on above: Performed By: #### L 100.0100, L500.4050 #### [facility] [address] [place], [address] BUN/CRE 14.3 RATIO Normal 10-20 [facility] Comment on above: Performed By: #### L 100.0100, L500.4050 #### [facility] [address] [place], [address] Calcium [Mass/Vol] 9.3 mg/dL Normal 7.6-11.0 [facility] Comment on above: Performed By: #### L 100.0100, L500.4050 #### [facility] [address] [place], [address] Chloride [Moles/Vol] 99 mmol/L Normal 98-108 [facility] Comment on above: Performed By: #### L 100.0100, L500.4050 #### [facility] [address] [place], [address] CO2 [Moles/Vol] 24.3 mmol/L Normal 21.0-32.0 [facility] Comment on above: Performed By: #### L 100.0100, L500.4050 #### [facility] [address] [place], [address] Creatinine [Mass/Vol] 0.80 mg/dL Normal 0.70-1.20 [facility] Comment on above: Performed By: #### L 100.0100, L500.4050 #### [facility] [address] [place], [address] GAP 13 Normal 5-15 [facility] Comment on above: Performed By: #### L 100.0100, L500.4050 #### [facility] [address] [place], [address] GFR/1.73 sq M.predicted among non-blacks MDRD (S/P/Bld) [Vol rate/Area] 71 mL/min/{1.73_m2} Normal >60 [facility] Comment on above: Result Comment: mL/m in/1.73m2 CKD-EPI Creatinine Equation (2020) Performed By: #### L 100.0100, L500.4050 #### [facility] [address] [place], [address] Globulin (S) [Mass/Vol] 2.4 g/dL Normal 2.2-4.2 [facility] Comment on above: Performed By: #### L 100.0100, L500.4050 #### [facility] [address] [place], [address] Glucose [Mass/Vol] 99 mg/dL Normal 70-99 [facility] Comment on above: Performed By: #### L 100.0100, L500.4050 #### [facility] [address] [place], [address] Potassium [Moles/Vol] 4.1 mmol/L Normal 3.3-5.1 [facility] Comment on above: Performed By: #### L 100.0100, L500.4050 #### [facility] [address] [place], [address] Sodium [Moles/Vol] 136 mmol/L Normal 133-145 [facility] Comment on above: Performed By: #### L 100.0100, L500.4050 #### [facility] [address] [place], [address] T PROT 6.9 g/dL Normal 5.9-8.4 [facility] Comment on above: Performed By: #### L 100.0100, L500.4050 #### [facility] [address] [place], [address] Urea nitrogen [Mass/Vol] 12 mg/dL Normal 4-19 [facility] Comment on above: Performed By: #### L 100.0100, L500.4050 #### [facility] [address] [place], [address] Gastroenterology Visit Repor ton 10-11-2024 Gastroenterology Visit Report [facility] [address] [place] [address] OFFICE VISIT Date of Service: 10/11/24 MR#: [id number] Acct: [id number] Name: ALISON SANTACRUZ Rep #: [id number] : 1940 Provider: LIZZETTE Edwards Age/Sex: 84/F Location[place] [facility] Status: Signed Intake Vital Signs 10/06/24 13:13 Height 5 ft 6 in Intake Visit Reasons: ER FU ABDOMINAL PAIN PRESSURE LOWER BACK PAIN Chief Complaint: abdominal pain Allergies Iodinated Contrast Media Allergy (Verified 10/06/24 13:15) Rash atorvastatin (From Lipitor) Adverse Reaction (Verified 10/06/24 13:15) Upset Stomach bupropion (From Wellbutrin) Adverse Reaction (Verified 10/06/24 13:15) Other paroxetine (From Paxil) Adverse Reaction (Verified 10/06/24 13:15) Rousseau poorly rosuvastatin (From Crestor) Adverse Reaction (Verified 10/06/24 13:15) Upset Stomach sertraline (From Zoloft) Adverse Reaction (Verified 10/06/24 13:15) Other simvastatin (From Zocor) Adverse Reaction (Verified 10/06/24 13:15) Upset Stomach Have you fallen in the past year?: No Nurse's Note: OV 10/11/24 Pt here for a f/u and reports nausea, abdominal pain, dark stools, and heartburn. [facility] Medical History Arthritis Gastric reflux Wears [...] 12. Moderate diffuse spondylosis. GES; not completed [facility] ED 8.3.25 for abd pain. WOrk up largely unremarkeble CT abd/pelvis No acute process detected. Other findings as above. OV 8.8.25 patient having abdominal pain, nausea dry heaving and general malaise over the past week. She contacted her primar (more content not included)... Normal [facility] Abdomen/Pelvis W IV Cont ONL Yon 10-06-2024 Abdomen/Pelvis W IV Cont ONLY [facility] Imaging Services [address] [place] [id number] Abdomen/Pelvis W IV Cont ONLY MR#: [id number] Acct: [id number] Name: ALISON SANTACRUZ Rep #: [id number] : 1940 F 84 From: Milo Holloway DO PCP: Dr. Eddie Waggoner MD Status: REG ER Study: Abdomen/Pelvis W IV Cont ONLY Date of Exam: Exam# [id number] Ordering Dr: Chris Phillips DO PROCEDURE: ABDOMEN/PELVIS [...] Other findings as above. Reading [facility] CC: Dr. Chris Phillips, DO; Dr. Eddie Waggoner MD Manager Part: Signed Normal [facility] CBC W/Diff, Automatedon 08-0 Absolute Lymph 1.12 X10 3/uL Normal 0.83-4.51 [facility] Comment on above: Performed By: #### L 100.0100, L501.2450, L500.4050 #### [facility] [address] [place], [address] Absolute Neut 2.7 X10 3/uL Normal 2.0-7.7 [facility] Comment on above: Performed By: #### L 100.0100, L501.2450, L500.4050 #### [facility] [address] [place], [address] Basophils/100 WBC (Bld) 0.7 % Normal 0-1 [facility] Comment on above: Performed By: #### L 100.0100, L501.2450, L500.4050 #### [facility] [address] [place], [address] Eosinophils/100 WBC (Bld) 3.5 % Normal 0-5 [facility] Comment on above: Performed By: #### L 100.0100, L501.2450, L500.4050 #### [facility] [address] [place], [address] Erythrocyte distribution width (RBC) [Ratio] 11.9 % Normal 11.6-14.6 [facility] Comment on above: Performed By: #### L 100.0100, L501.2450, L500.4050 #### [facility] [address] [place], [address] Hematocrit (Bld) [Volume fraction] 34.6 % Low 37-47 [facility] Comment on above: Performed By: #### L 100.0100, L501.2450, L500.4050 #### [facility] [address] [place], [address] Hemoglobin (Bld) [Mass/Vol] 12.0 g/dL Normal 12.0-15.0 [facility] Comment on above: Performed By: #### L 100.0100, L501.2450, L500.4050 #### [facility] [address] [place], [address] IG% 0.500 Normal 0.0-0.9 [facility] Comment on above: Result Comment: IG% - Immature Granulocytes (promyelocytes, myelocytes and metamyelocytes) > 1% indicates that a LEFT SHIFT is Present. Performed By: #### L 100.0100, L501.2450, L500.4050 #### [facility] [address] [place], [address] Lymphocytes/100 WBC (Bld) 26.3 % Normal 19-41 [facility] Comment on above: Performed By: #### L 100.0100, L501.2450, L500.4050 #### [facility] [address] [place], [address] MCH (RBC) [Entitic mass] 30.9 pg Normal 27.0-32.0 [facility] Comment on above: Performed By: #### L 100.0100, L501.2450, L500.4050 #### [facility] [address] [place], [address] MCHC (RBC) [Mass/Vol] 34.7 g/dL Normal 32-36 [facility] Comment on above: Performed By: #### L 100.0100, L501.2450, L500.4050 #### [facility] [address] [place], [address] MCV (RBC) [Entitic vol] 89.2 fL Normal 81-99 [facility] Comment on above: Performed By: #### L 100.0100, L501.2450, L500.4050 #### [facility] [address] [place], [address] Monocytes/100 WBC (Bld) 6.3 % Normal 0-10 [facility] Comment on above: Performed By: #### L 100.0100, L501.2450, L500.4050 #### [facility] [address] [place], [address] Neutrophils/100 WBC (Bld) 62.7 % Normal 47-70 [facility] Comment on above: Performed By: #### L 100.0100, L501.2450, L500.4050 #### [facility] [address] [place], [address] Nucleated RBC (Bld) [#/Vol] 0 10*3/uL Normal 0-5 [facility] Comment on above: Performed By: #### L 100.0100, L501.2450, L500.4050 #### [facility] [address] [place], [address] Platelet mean volume (Bld) [Entitic vol] 8.3 fL Normal 6.2-12.0 [facility] Comment on above: Performed By: #### L 100.0100, L501.2450, L500.4050 #### [facility] [address] [place], [address] Platelets (Bld) [#/Vol] 170 10*3/uL Normal 150-450 [facility] Comment on above: Performed By: #### L 100.0100, L501.2450, L500.4050 #### [facility] [address] [place], [address] RBC (Bld) [#/Vol] 3.88 10*6/uL Low 4.2-5.4 [facility] Comment on above: Performed By: #### L 100.0100, L501.2450, L500.4050 #### [facility] [address] [place], [address] RDW SD 38.3 fl Normal 35.1-43.9 [facility] Comment on above: Performed By: #### L 100.0100, L501.2450, L500.4050 #### [facility] [address] [place], [address] WBC (Bld) [#/Vol] 4.3 10*3/uL Low 4.4-11.0 [facility] Comment on above: Performed By: #### L 100.0100, L501.2450, L500.4050 #### [facility] [address] [place], [address] Comprehensive Metabolic Prof [facility] 10-06-2024 Albumin [Mass/Vol] 4.4 g/dL Normal 3.4-4.8 [facility] Comment on above: Performed By: #### L 100.0100, L501.2450, L500.4050 #### [facility] [address] [place], [address] Albumin/Globulin [Mass ratio] 1.9 {ratio} Normal 0.9-2.4 [facility] Comment on above: Performed By: #### L 100.0100, L501.2450, L500.4050 #### [facility] [address] [place], [address] ALK PHOS 73 U/L Normal 35-104 [facility] Comment on above: Performed By: #### L 100.0100, L501.2450, L500.4050 #### [facility] [address] [place], [address] ALT [Catalytic activity/Vol] 16 U/L Normal <=34 [facility] Comment on above: Performed By: #### L 100.0100, L501.2450, L500.4050 #### [facility] [address] [place], [address] AST [Catalytic activity/Vol] 18 U/L Normal <=31 [facility] Comment on above: Performed By: #### L 100.0100, L501.2450, L500.4050 #### [facility] [address] [place], [address] Bilirubin [Mass/Vol] 0.77 mg/dL Normal 0.00-1.30 [facility] Comment on above: Performed By: #### L 100.0100, L501.2450, L500.4050 #### [facility] [address] [place], [address] BUN/CRE 15.2 RATIO Normal 10-20 [facility] Comment on above: Performed By: #### L 100.0100, L501.2450, L500.4050 #### [facility] [address] [place], [address] Calcium [Mass/Vol] 9.1 mg/dL Normal 7.6-11.0 [facility] Comment on above: Performed By: #### L 100.0100, L501.2450, L500.4050 #### [facility] [address] [place], [address] Chloride [Moles/Vol] 100 mmol/L Normal 98-108 [facility] Comment on above: Performed By: #### L 100.0100, L501.2450, L500.4050 #### [facility] [address] [place], [address] CO2 [Moles/Vol] 25.6 mmol/L Normal 21.0-32.0 [facility] Comment on above: Performed By: #### L 100.0100, L501.2450, L500.4050 #### [facility] [address] [place], [address] Creatinine [Mass/Vol] 0.83 mg/dL Normal 0.70-1.20 [facility] Comment on above: Performed By: #### L 100.0100, L501.2450, L500.4050 #### [facility] [address] [place], [address] ECRCL 49.58 ml/min Low 50-250 [facility] Comment on above: Performed By: #### L 100.0100, L501.2450, L500.4050 #### [facility] [address] [place], [address] GAP 11 Normal 5-15 [facility] Comment on above: Performed By: #### L 100.0100, L501.2450, L500.4050 #### [facility] [address] [place], [address] GFR/1.73 sq M.predicted among non-blacks MDRD (S/P/Bld) [Vol rate/Area] 69 mL/min/{1.73_m2} Normal >60 [facility] Comment on above: Result Comment: mL/m in/1.73m2 CKD-EPI Creatinine Equation (2020) Performed By: #### L 100.0100, L501.2450, L500.4050 #### [facility] [address] [place], [address] Globulin (S) [Mass/Vol] 2.4 g/dL Normal 2.2-4.2 [facility] Comment on above: Performed By: #### L 100.0100, L501.2450, L500.4050 #### [facility] [address] [place], [address] Glucose [Mass/Vol] 121 mg/dL High 70-99 [facility] Comment on above: Performed By: #### L 100.0100, L501.2450, L500.4050 #### [facility] [address] [place], [address] Potassium [Moles/Vol] 4.0 mmol/L Normal 3.3-5.1 [facility] Comment on above: Performed By: #### L 100.0100, L501.2450, L500.4050 #### [facility] [address] [place], [address] Sodium [Moles/Vol] 137 mmol/L Normal 133-145 [facility] Comment on above: Performed By: #### L 100.0100, L501.2450, L500.4050 #### [facility] [address] [place], [address] T PROT 6.8 g/dL Normal 5.9-8.4 [facility] Comment on above: Performed By: #### L 100.0100, L501.2450, L500.4050 #### [facility] [address] [place], [address] Urea nitrogen [Mass/Vol] 13 mg/dL Normal 4-19 [facility] Comment on above: Performed By: #### L 100.0100, L501.2450, L500.4050 #### [facility] [address] [place], [address] Emergency Department Summary on 10-06-2024 Emergency Department Summary [facility] Medical Records Department [address] [place] [address] Emergency Department Summary 10/06/24 MR#: [id number] Acct: [id number] Name: ALISON SANTACRUZ Rep #: [id number] : 1940 84 From: Chris Phillips DO [...] Psych: Cooperative, appropriate mood and affect [facility] Medical History Arthritis Gastric reflux Wears hearing [...] DAILY 07/14/22 12/15/23 Hi story glucosamine 750 oc-mvgfmwbodnd-qyf 1 tab PO DAILY 07/14/22 04/15/24 History [...] AdvReac Fel (more content not included)... Normal [facility] Lipaseon 10-06-2024 Lipase [Catalytic activity/Vol] 23 U/L Normal 13-75 [facility] Comment on above: Result Comment: Yuko joseph note: LIPASE revised reference range effective 22. New Lipase methodology. Expected to produce lower values than the previous assay method. NEW Reference Range: 13 - 75 U/L Performed By: #### L 100.0100, L501.2450, L500.4050 #### [facility] [address] [place], [address] Stool Occult Blood iFOBon STOB Positive Normal [facility] Comment on above: Performed By: #### L 100.0100, L500.4050 #### [facility] [address] [place], [address] Urinalysis, Completeon 10-06 BACTERIA 0 SEEN Normal None Seen [facility] Comment on above: Order Comment: COLLE CTOR TO SPECIFY Performed By: #### L 100.0100, L501.2450, L500.4050 #### [facility] [address] [place], [address] EPI,SQUAMOUS 0 SEEN Normal 5-10 [facility] Comment on above: Order Comment: COLLE CTOR TO SPECIFY Performed By: #### L 100.0100, L501.2450, L500.4050 #### [facility] [address] [place], [address] Mucus Ql (Urine sed) 0 SEEN Normal [facility] Comment on above: Order Comment: COLLE CTOR TO SPECIFY Performed By: #### L 100.0100, L501.2450, L500.4050 #### [facility] [address] [place], [address] RBC 0 SEEN Normal 0-5 [facility] Comment on above: Order Comment: COLLE CTOR TO SPECIFY Performed By: #### L 100.0100, L501.2450, L500.4050 #### [facility] [address] [place], [address] WBC 0 SEEN Normal 0-5 [facility] Comment on above: Order Comment: COLLE CTOR TO SPECIFY Performed By: #### L 100.0100, L501.2450, L500.4050 #### [facility] [address] [place], [address] CNOVon 10-05-2024 CNOV Office Visit ([facility]) ALISON SANTACRUZ ([id number]) 1940 F Date Time Provider Department 10/05/24 2:15 PM DAVID ROCHA During your visit today, we recorded the following information about you: Temperature Pulse Respiration Blood pressure 99.4 degrees 85/minute 18/minute 122/78 Weight 72.2 kg David Rohca MD 10/05/2024 2:54 PM Signed URGENT CARE [...] As of Date: 10/05/2024 Noted Allergy Reaction NDBXGTA-GQO-IEN REDUCTASE INHIBIT*10/05/2024 5 - Intolerance Date Reviewed: [...] Status:Closed by DAVID ROCHA on 10/05/24 Normal [facility] Shoulder min 2 Viewson 07-30 Shoulder min 2 Views [facility] Imaging Services [address] [place], [place] [id number] Shoulder min 2 Views MR#: [id number] Acct: [id number] Name: ALISON SANTACRUZ Rep #: [id number] : 1940 F 84 From: Zbigniew Martinez MD PCP: Dr. Eddie Waggoner MD Status: REG CLI Study: Shoulder min 2 Views Date of Exam: 07/30/24 Exam# [id number] Ordering Dr: Eddie Waggoner MD PROCEDURE: SHOULDER MIN 2 VIEWS 07/30/2024 REASON FOR EXAM: SHOULDER PAIN X 1 MONTH, NO INJURY TECHNIQUE: Four views right shoulder COMPARISON: None available FINDINGS: No fracture or dislocation. Mild glenohumeral joint osteoarthrosis. Qnov-yr-britwybd acromioclavicular joint osteoarthrosis with a downward directed osteophyte at the distal clavicle suggested. Visualized right lung appears clear. RAD/Shoulder min 2 Views IMPRESSION: Osteoarthrosis as above. Reading Location: [facility] CC: Dr. Eddie Waggoner MD Manager Part: Signed Normal [facility] Abdomen/Pelvis WITH Contrast on 06-20-2024 Abdomen/Pelvis WITH Contrast [facility] Imaging Services [address] [place], [place] [address] Abdomen/Pelvis WITH Contrast MR#: [id number] Acct: [id number] Name: ALISON SANTACRUZ Rep #: [id number] : 1940 F 83 From: Celia lance MD PCP: Dr. Eddie Waggoner MD Status: REG CLI Study: Abdomen/Pelvis WITH Contrast Date of Exam: Exam# [id number] Ordering Dr: Rajwinder Luis PROCEDURE: ABDOMEN/PELVIS WITH [...] 12. Moderate diffuse spondylosis. [facility] CC: Dr. Eddie Waggoner MD; LIZZETTE Edwards Manager Part: Signed Normal [facility] CBC W/Diff, Automatedon 05-05 Absolute Lymph 0.99 X10 3/uL Normal 0.83-4.51 [facility] Comment on above: Performed By: #### L 501.2450, L500.4050, L100.0100 ####[facility] [address] [place], [address] Absolute Neut 1.6 X10 3/uL Low 2.0-7.7 [facility] Comment on above: Performed By: #### L 501.2450, L500.4050, L100.0100 ####[facility] [address] [place], [address] Basophils/100 WBC (Bld) 1.6 % High 0-1 [facility] Comment on above: Performed By: #### L 501.2450, L500.4050, L100.0100 ####[facility] [address] [place], [address] Eosinophils/100 WBC (Bld) 7.2 % High 0-5 [facility] Comment on above: Performed By: #### L 501.2450, L500.4050, L100.0100 ####[facility] [address] [place], [address] Erythrocyte distribution width (RBC) [Ratio] 12.0 % Normal 11.6-14.6 [facility] Comment on above: Performed By: #### L 501.2450, L500.4050, L100.0100 ####[facility] [address] [place], [address] Hematocrit (Bld) [Volume fraction] 37.2 % Normal 37-47 [facility] Comment on above: Performed By: #### L 501.2450, L500.4050, L100.0100 ####[facility] [address] [place], [address] Hemoglobin (Bld) [Mass/Vol] 12.9 g/dL Normal 12.0-15.0 [facility] Comment on above: Performed By: #### L 501.2450, L500.4050, L100.0100 ####[facility] [address] [place], [address] IG% 0.600 Normal 0.0-0.9 [facility] Comment on above: Result Comment: IG% - Immature Granulocytes (promyelocytes, myelocytes and metamyelocytes) > 1% indicates that a LEFT SHIFT is Present. Performed By: #### L 501.2450, L500.4050, L100.0100 ####[facility] [address] [place], [address] Lymphocytes/100 WBC (Bld) 31.1 % Normal 19-41 [facility] Comment on above: Performed By: #### L 501.2450, L500.4050, L100.0100 ####[facility] [address] [place], [address] MCH (RBC) [Entitic mass] 30.6 pg Normal 27.0-32.0 [facility] Comment on above: Performed By: #### L 501.2450, L500.4050, L100.0100 ####[facility] [address] [place], [address] MCHC (RBC) [Mass/Vol] 34.7 g/dL Normal 32-36 [facility] Comment on above: Performed By: #### L 501.2450, L500.4050, L100.0100 ####[facility] [address] [place], [address] MCV (RBC) [Entitic vol] 88.4 fL Normal 81-99 [facility] Comment on above: Performed By: #### L 501.2450, L500.4050, L100.0100 ####[facility] [address] [place], [address] Monocytes/100 WBC (Bld) 10.1 % High 0-10 [facility] Comment on above: Performed By: #### L 501.2450, L500.4050, L100.0100 ####[facility] [address] [place], [address] Neutrophils/100 WBC (Bld) 49.4 % Normal 47-70 [facility] Comment on above: Performed By: #### L 501.2450, L500.4050, L100.0100 ####[facility] [address] [place], [address] Nucleated RBC (Bld) [#/Vol] 0 10*3/uL Normal 0-5 [facility] Comment on above: Performed By: #### L 501.2450, L500.4050, L100.0100 ####[facility] [address] [place], [address] Platelet mean volume (Bld) [Entitic vol] 8.7 fL Normal 6.2-12.0 [facility] Comment on above: Performed By: #### L 501.2450, L500.4050, L100.0100 ####[facility] [address] [place], [address] Platelets (Bld) [#/Vol] 178 10*3/uL Normal 150-450 [facility] Comment on above: Performed By: #### L 501.2450, L500.4050, L100.0100 ####[facility] [address] [place], [address] RBC (Bld) [#/Vol] 4.21 10*6/uL Normal 4.2-5.4 [facility] Comment on above: Performed By: #### L 501.2450, L500.4050, L100.0100 ####[facility] [address] [place], [address] RDW SD 38.6 fl Normal 35.1-43.9 [facility] Comment on above: Performed By: #### L 501.2450, L500.4050, L100.0100 ####[facility] [address] [place], [address] WBC (Bld) [#/Vol] 3.2 10*3/uL Low 4.4-11.0 [facility] Comment on above: Performed By: #### L 501.2450, L500.4050, L100.0100 ####[facility] [address] [place], [address] [facility] 05-31-2024 Albumin [Mass/Vol] 4.6 g/dL Normal 3.4-4.8 [facility] Comment on above: Performed By: #### L 501.2450, L500.4050, L100.0100 ####[facility] [address] [place], [address] Albumin/Globulin [Mass ratio] 2.0 {ratio} Normal 0.9-2.4 [facility] Comment on above: Performed By: #### L 501.2450, L500.4050, L100.0100 ####[facility] [address] [place], [address] ALK PHOS 70 U/L Normal 35-104 [facility] Comment on above: Performed By: #### L 501.2450, L500.4050, L100.0100 ####[facility] [address] [place], [address] ALT [Catalytic activity/Vol] 15 U/L Normal <=34 [facility] Comment on above: Performed By: #### L 501.2450, L500.4050, L100.0100 ####[facility] [address] [place], [address] AST [Catalytic activity/Vol] 21 U/L Normal <=31 [facility] Comment on above: Performed By: #### L 501.2450, L500.4050, L100.0100 ####[facility] [address] [place], [address] Bilirubin [Mass/Vol] 0.94 mg/dL Normal 0.00-1.30 [facility] Comment on above: Performed By: #### L 501.2450, L500.4050, L100.0100 ####[facility] [address] [place], [address] BUN/CRE 16.8 RATIO Normal 10-20 [facility] Comment on above: Performed By: #### L 501.2450, L500.4050, L100.0100 ####[facility] [address] [place], [address] Calcium [Mass/Vol] 9.5 mg/dL Normal 7.6-11.0 [facility] Comment on above: Performed By: #### L 501.2450, L500.4050, L100.0100 ####[facility] [address] [place], [address] Chloride [Moles/Vol] 103 mmol/L Normal 98-108 [facility] Comment on above: Performed By: #### L 501.2450, L500.4050, L100.0100 ####[facility] [address] [place], [address] CO2 [Moles/Vol] 22.3 mmol/L Normal 21.0-32.0 [facility] Comment on above: Performed By: #### L 501.2450, L500.4050, L100.0100 ####[facility] [address] [place], [address] GAP 15 Normal 5-15 [facility] Comment on above: Performed By: #### L 501.2450, L500.4050, L100.0100 ####[facility] [address] [place], [address] GFR/1.73 sq M.predicted among non-blacks MDRD (S/P/Bld) [Vol rate/Area] 67 mL/min/{1.73_m2} Normal >60 [facility] Comment on above: Result Comment: mL/m in/1.73m2 CKD-EPI Creatinine Equation (2020) Performed By: #### L 501.2450, L500.4050, L100.0100 ####[facility] [address] [place], [address] Globulin (S) [Mass/Vol] 2.3 g/dL Normal 2.2-4.2 [facility] Comment on above: Performed By: #### L 501.2450, L500.4050, L100.0100 ####[facility] [address] [place], [address] Potassium [Moles/Vol] 4.1 mmol/L Normal 3.3-5.1 [facility] Comment on above: Performed By: #### L 501.2450, L500.4050, L100.0100 ####[facility] [address] [place], [address] Sodium [Moles/Vol] 140 mmol/L Normal 133-145 [facility] Comment on above: Performed By: #### L 501.2450, L500.4050, L100.0100 ####[facility] [address] [place], [address] T PROT 6.9 g/dL Normal 5.9-8.4 [facility] Comment on above: Performed By: #### L 501.2450, L500.4050, L100.0100 ####[facility] [address] [place], [address] Creatinine [Mass/Vol] 0.85 mg/dL Normal 0.70-1.20 [facility] Comment on above: Performed By: #### L 501.2450, L500.4050, L100.0100 ####[facility] [address] [place], [address] Glucose [Mass/Vol] 97 mg/dL Normal 70-99 [facility] Comment on above: Performed By: #### L 501.2450, L500.4050, L100.0100 ####[facility] [address] [place], [address] Urea nitrogen [Mass/Vol] 14 mg/dL Normal 4-19 [facility] Comment on above: Performed By: #### L 501.2450, L500.4050, L100.0100 ####[facility] [address] [place], [address] Gastroenterology Visit Repor ton 05-31-2024 Gastroenterology Visit Report [facility] Gastroenterology [address] [place] [address] OFFICE VISIT Date of Service: 05/31/24 MR#: [id number] Acct: [id number] Name: ALISON SANTACRUZ Rep #: [id number] : 1940 Provider: LIZZETTE Edwards Age/Sex: 83/F [place] [facility] Status: Signed Intake Vital Signs 04/16/24 13:36 Height 5 ft 6 in Intake Visit Reasons: Ongoing issues Chief Complaint: abdominal pain Allergies Iodinated Contrast Media Allergy (Verified 04/16/24 13:29) Rash atorvastatin (From Lipitor) Adverse Reaction (Verified 04/16/24 13:29) Upset Stomach bupropion (From Wellbutrin) Adverse Reaction (Verified 04/16/24 13:29) Other paroxetine (From Paxil) Adverse Reaction (Verified 04/16/24 13:29) Rousseau poorly rosuvastatin (From Crestor) Adverse Reaction (Verified [...] gallbladder. Continues taking pantoprazole and dicyclomine daily. [facility] Medical History Arthritis Gastric reflux Wears [...] for itchy (more content not included)... Normal [facility] Lipaseon 05-31-2024 Lipase [Catalytic activity/Vol] 26 U/L Normal 13-75 [facility] Comment on above: Result Comment: Yuko joseph note: LIPASE revised reference range effective 22. New Lipase methodology. Expected to produce lower values than the previous assay method. NEW Reference Range: 13 - 75 U/L Performed By: #### L 501.2450, L500.4050, L100.0100 ####[facility] [address] [place], [address] Stool Occult Blood iFOBon STOB Negative Normal [facility] Comment on above: Performed By: #### L 100.0100, L500.4050 #### [facility] [address] [place], [address] [employer] Decub and/or Erecton 05-30-2024 Abd Inc Decub and/or Erect [facility] Imaging Services [address] [place] [address] [employer] Decub and/or Erect MR#: [id number] Acct: [id number] Name: ALISON SANTACRUZ Rep #: [id number] : 1940 F 83 From: Karel Mortensen MD PCP: Dr. Eddie Waggoner MD Status: REG CLI Study: Abd Inc Decub and/or Erect Date of Exam: 05/30 Exam# [id number] Ordering Dr: Eddie Waggoner MD EXAM: XR [...] the colon consistent with constipation. Reading Location: [facility] CC: Dr. Eddie Waggoner MD Manager Part: Signed Normal [facility] Thyroid Stim Hormone (TSH)on 04-22-2024 TSH 2.120 uIU/mL Normal 0.358-3.740 [facility] Comment on above: Performed By: #### L 100.0100, L501.2450, L500.4050 #### [facility] [address] [facility] [place], [address] EGD Reporton 04-16-2024 EGD Report [facility] Medical Records Department [address] [place] [address] EGD Report MR#: [id number] Acct: [id number] Name: ALISON SANTACRUZ Rep #: [id number] : 1940 83 From: Willie Shook DO PCP: Dr. Eddie Waggoner MD Status:[facility] Patient Name: Alison Santacruz Procedure Date: 04/16/2024 [...] pathology results. Procedure Code(s): --- Professional --- 93926, Esophagogastroduodenosc opy, flexible, transoral; with biopsy, single or multiple CPT copyright 2021 [employer]. All rights reserved. The codes documented in this report are preliminary and upon teller review may be revised to meet current compliance requirements. Willie Shook DO 04/16/2024 3:20:24 PM This report has been signed electronically. Number of Addenda: 0 Note Initiated On: 04/16/2024 2:52 PM 04/16/24 1520 Date Willie Shook DO [facility] Signature: Date (if indicated) CC: Dr. Eddie Waggoner MD; Willie Shook, Date Dictated: 04/16/24 9160 Date Transcribed: Manager Part: ES Signed Normal [facility] H Pylori (initial)on 025 H Pylori (initial) --- Patient Age/Sex Location Account Attending Physician ALISON SANTACRUZ 83/F EN [id number] Willie Shook DO Specimen: [id number] Received: 04/17/24 Status: AKIRA Kelly Num: [id number] Spec Type: IMMUNO Subm Dr: Willie Shook DO [facility]YS[facility] INSTITUTION [place] [address] SPECIMEN INFORMATION: Tissue Source: B- Gastric cardia biopsy, C- Distal esophagus biopsy Clinical Info: Heartburn, GERD Specimen Number: [id number] B,C CPT code: 35311o4,27366 METHODOLOGY: Deparaffinized sections of prefer/formalin-fixed tissue or [...] developed and their performance characteristics determined by [facility]. They may not have [...] Dr. Alejandro Rashid MD 04/19/24 1151 Normal [facility] Comment on above: Performed By: #### L 100.0100, L500.4050 #### [facility] [address] [place], [address] MR/POSTOP.ANEon 04-16-2024 MR/POSTOP.[facility] Medical Records Department [address] [place] [address] Anesthesia Postop Eval I 04/16/24 1518 MR#: [id number] Acct: [id number] Name: ALISON SANTACRUZ Rep #: [id number] : 1940 83 From: Jim Middleton PCP: Dr. Eddie Waggoner MD Status:[facility] Y Race: C Location: [place] [address] Anesthesia: Postop Eval I Current Vital Signs [...] Jim Gregg Signature: Date CC: Signed Normal [facility] MR/NHRXYMHS7tj 04-16-2024 MR/POSTOPAN2 [facility] Medical Records Department [address] [place] [address] Anesthesia Postop Eval II 04/16/24 1831 MR#: [id number] Acct: [id number] Name: ALISON SANTACRUZ Rep #: [id number] : 1940 83 From: Oliver Kapoor MD PCP: Dr. Eddie Waggoner MD Status:[facility] Y Race: C Location: EN [...] MD Cosigner Signature: Date CC: Signed Normal [facility] Special Stain Group Ion 04-06 Special Stain Group I ----- Patient Age/Sex Location Account Attending Physician ALISON SANTACRUZ 83/F EN [id number] Willie Shook DO Specimen: [id number] Received: 04/17/24 Status: AKIRA Kelly Num: [id number] Spec Type: EGD BIOPSY Subm Dr: Willie [...] for Helicobacter pylori will be reported separately ([id number]). C. Alcian blue/PAS stain with matched control is used in the evaluation of the specimen. Immunohistochemistry ([id number]) for P53 and Ki-67 will be performed, [...] Patient Age/Sex Location Account Attending Physician ALISON SANTARCUZ 83/F EN [id number] Willie Shook DO tissue that in aggregate [...] totally submitted in one cassette. 04/17/2024 TC:3 [facility]:[id number] Patient Age/Sex Location Account Attending Physician ALISON SANTACRUZ 83/F EN [id number] Willie Shook, DO Signed (signature on file) Dr. Alejandro Rashid MD 04/19/24 0934 [facility] Comment on above: Performed By: #### P SSI ####[facility] [address] [place], [place], [address] MR/RONNIPrernaPrisca 04-15-2024 MR/ESTHER [facility] Medical Records Department [address] [place] [address] PAT - Anesthesia 04/15/24 1032 MR#: [id number] Acct: [id number] Name: ALISON SANTACRUZ Rep #: [id number] : 1940 83 From: Casey Staley MD PCP: Dr. 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: Anesthesia History - jacquard plate maker Hx Hospitalization No 04/11/24 15:16 Any Problems [...] take am of surgery PONV PONV - jacquard plate maker: PONV - jacquard plate maker Female Yes 04/11/24 15:16 HX of Motion [...] 12/19/23 13:28 Respiratory Assessment Respiratory Assessment - jacquard plate maker: Respiratory Tract Infection Hx - jacquard plate maker Hx Respiratory Tract Infection No 04/11/24 15:16 STOP Sleep Apnea STOP Sleep Apnea - jacquard plate maker: STOP Sleep Apnea - jacquard plate maker Hx Hypertension Yes: CONTROLLED ON MEDS 04/11/24 [...] 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 Use History - jacquard plate maker: Tobacco Use History - jacquard plate maker Tobacco Use Smoking Status Never smoker 04/11/24 15:16 Hx Tobacco Use No 04/11/24 15:16 Years Smoking Packs Smoked per Day Smoking Cessation Date was within the last 15 years Hx Smoking Cessation Date Hx Smoking Cessation Counseling Hematologic Medial History Hematologic Hx - jacquard plate maker: 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 Normal [facility] CBC W/Diff, Automatedon 12 Absolute Lymph 1.41 X10 3/uL Normal 0.83-4.51 [facility] Comment on above: Performed By: #### L 100.0100, L500.4050, L501.2450 #### [facility] [address] [place], [address] Absolute Neut 2.6 X10 3/uL Normal 2.0-7.7 [facility] Comment on above: Performed By: #### L 100.0100, L500.4050, L501.2450 #### [facility] [address] [place], [address] Basophils/100 WBC (Bld) 1.0 % Normal 0-1 [facility] Comment on above: Performed By: #### L 100.0100, L500.4050, L501.2450 #### [facility] [address] [place], [address] Eosinophils/100 WBC (Bld) 4.4 % Normal 0-5 [facility] Comment on above: Performed By: #### L 100.0100, L500.4050, L501.2450 #### [facility] [address] [place], [address] Erythrocyte distribution width (RBC) [Ratio] 11.9 % Normal 11.6-14.6 [facility] Comment on above: Performed By: #### L 100.0100, L500.4050, L501.2450 #### [facility] [address] [place], [address] Hematocrit (Bld) [Volume fraction] 38.2 % Normal 37-47 [facility] Comment on above: Performed By: #### L 100.0100, L500.4050, L501.2450 #### [facility] [address] [place], [address] Hemoglobin (Bld) [Mass/Vol] 12.9 g/dL Normal 12.0-15.0 [facility] Comment on above: Performed By: #### L 100.0100, L500.4050, L501.2450 #### [facility] [address] [place], [address] IG% 1.000 High 0.0-0.9 [facility] Comment on above: Result Comment: IG% - Immature Granulocytes (promyelocytes, myelocytes and metamyelocytes) > 1% indicates that a LEFT SHIFT is Present. Performed By: #### L 100.0100, L500.4050, L501.2450 #### [facility] [address] [place], [address] Lymphocytes/100 WBC (Bld) 29.5 % Normal 19-41 [facility] Comment on above: Performed By: #### L 100.0100, L500.4050, L501.2450 #### [facility] [address] [place], [address] MCH (RBC) [Entitic mass] 30.1 pg Normal 27.0-32.0 [facility] Comment on above: Performed By: #### L 100.0100, L500.4050, L501.2450 #### [facility] [address] [place], [address] MCHC (RBC) [Mass/Vol] 33.8 g/dL Normal 32-36 [facility] Comment on above: Performed By: #### L 100.0100, L500.4050, L501.2450 #### [facility] [address] [place], [address] MCV (RBC) [Entitic vol] 89.0 fL Normal 81-99 [facility] Comment on above: Performed By: #### L 100.0100, L500.4050, L501.2450 #### [facility] [address] [place], [address] Monocytes/100 WBC (Bld) 8.8 % Normal 0-10 [facility] Comment on above: Performed By: #### L 100.0100, L500.4050, L501.2450 #### [facility] [address] [place], [address] Neutrophils/100 WBC (Bld) 55.3 % Normal 47-70 [facility] Comment on above: Performed By: #### L 100.0100, L500.4050, L501.2450 #### [facility] [address] [place], [address] Nucleated RBC (Bld) [#/Vol] 0 10*3/uL Normal 0-5 [facility] Comment on above: Performed By: #### L 100.0100, L500.4050, L501.2450 #### [facility] [address] [place], [address] Platelet mean volume (Bld) [Entitic vol] 8.6 fL Normal 6.2-12.0 [facility] Comment on above: Performed By: #### L 100.0100, L500.4050, L501.2450 #### [facility] [address] [place], [address] Platelets (Bld) [#/Vol] 193 10*3/uL Normal 150-450 [facility] Comment on above: Performed By: #### L 100.0100, L500.4050, L501.2450 #### [facility] [address] [place], [address] RBC (Bld) [#/Vol] 4.29 10*6/uL Normal 4.2-5.4 [facility] Comment on above: Performed By: #### L 100.0100, L500.4050, L501.2450 #### [facility] [address] [place], [address] RDW SD 38.3 fl Normal 35.1-43.9 [facility] Comment on above: Performed By: #### L 100.0100, L500.4050, L501.2450 #### [facility] [address] [place], [address] WBC (Bld) [#/Vol] 4.8 10*3/uL Normal 4.4-11.0 [facility] Comment on above: Performed By: #### L 100.0100, L500.4050, L501.2450 #### [facility] [address] [place], [address] Comprehensive [facility] 02-16-2024 Albumin [Mass/Vol] 3.9 g/dL Normal 3.2-5.0 [facility] Comment on above: Performed By: #### L 100.0100, L500.4050, L501.2450 ####[facility] [address] [place], [address] Albumin/Globulin [Mass ratio] 1.3 {ratio} Normal 0.9-2.4 [facility] Comment on above: Performed By: #### L 100.0100, L500.4050, L501.2450 ####[facility] [address] [place], [address] ALK P 63 U/L Normal 45-117 [facility] Comment on above: Performed By: #### L 100.0100, L500.4050, L501.2450 ####[facility] [address] [place], [address] ALT [Catalytic activity/Vol] 23 U/L Normal 13-56 [facility] Comment on above: Performed By: #### L 100.0100, L500.4050, L501.2450 ####[facility] [address] [place], [address] AST [Catalytic activity/Vol] 12 U/L Low 15-37 [facility] Comment on above: Performed By: #### L 100.0100, L500.4050, L501.2450 ####[facility] [address] [place], [address] Bilirubin [Mass/Vol] 1.00 mg/dL Normal 0.20-1.00 [facility] Comment on above: Result Comment: For patients on eltrombopag therapy, use of Dimension Lottie TBIL is not recommended. Performed By: #### L 100.0100, L500.4050, L501.2450 ####[facility] [address] [place], [address] BUN/CRE 16.3 RATIO Normal 10-20 [facility] Comment on above: Performed By: #### L 100.0100, L500.4050, L501.2450 ####[facility] [address] [place], [address] CA,Total 9.4 mg/dL Normal 8.5-10.1 [facility] Comment on above: Performed By: #### L 100.0100, L500.4050, L501.2450 ####[facility] [address] [place], [address] Chloride [Moles/Vol] 103 mmol/L Normal 98-107 [facility] Comment on above: Performed By: #### L 100.0100, L500.4050, L501.2450 ####[facility] [address] [place], [address] CO2 [Moles/Vol] 30.0 mmol/L Normal 21.0-32.0 [facility] Comment on above: Performed By: #### L 100.0100, L500.4050, L501.2450 ####[facility] [address] [place], [address] Creatinine [Mass/Vol] 0.86 mg/dL Normal 0.55-1.02 [facility] Comment on above: Result Comment: The validity of the calculated GFR GFRAA in patients over 70 years has not been determined. Clinical correlation is essential. Performed By: #### L 100.0100, L500.4050, L501.2450 ####[facility] [address] [place], [address] EST GFR - AA 81 mL/min Normal >60 [facility] Comment on above: Result Comment: Afri can Venezuelan GFR Calc Performed By: #### L 100.0100, L500.4050, L501.2450 ####[facility] [address] [place], [address] GAP 4 Low 5-15 [facility] Comment on above: Performed By: #### L 100.0100, L500.4050, L501.2450 ####[facility] [address] [place], [address] GFR/1.73 sq M.predicted among non-blacks MDRD (S/P/Bld) [Vol rate/Area] 67 mL/min/{1.73_m2} Normal >60 [facility] Comment on above: Result Comment: Non- GFR Calc Performed By: #### L 100.0100, L500.4050, L501.2450 ####[facility] [address] [place], [address] Globulin (S) [Mass/Vol] 2.9 g/dL Normal 2.2-4.2 [facility] Comment on above: Performed By: #### L 100.0100, L500.4050, L501.2450 ####[facility] [address] [place], [address] Glucose [Mass/Vol] 94 mg/dL Normal 74-106 [facility] Comment on above: Performed By: #### L 100.0100, L500.4050, L501.2450 ####[facility] [address] [place], [address] Potassium [Moles/Vol] 4.4 mmol/L Normal 3.5-5.1 [facility] Comment on above: Performed By: #### L 100.0100, L500.4050, L501.2450 ####[facility] [address] [place], [address] Sodium [Moles/Vol] 137 mmol/L Normal 136-145 [facility] Comment on above: Performed By: #### L 100.0100, L500.4050, L501.2450 ####[facility] [address] [place], [address] T PROT 6.8 g/dL Normal 6.4-8.2 [facility] Comment on above: Performed By: #### L 100.0100, L500.4050, L501.2450 ####[facility] [address] [place], [address] Urea nitrogen [Mass/Vol] 14 mg/dL Normal 7-18 [facility] Comment on above: Performed By: #### L 100.0100, L500.4050, L501.2450 ####[facility] [address] [place], [address] Gastroenterology Visit Repor ton 02-16-2024 Gastroenterology Visit Report [facility] Gastroenterology [address] [address] OFFICE VISIT Date of Service: 02/16/24 MR#: [id number] Acct: [id number] Name: ALISON SANTACRUZ Rep #: [id number] : 1940 Provider: LIZZETTE Edwards Age/Sex: 83/F [place] [facility] Status: Signed Intake Vital Signs 12/19/23 13:28 Height 5 ft 6 in Intake Visit Reasons: Diarrhea Chief Complaint: black tarry stools Allergies Iodinated Contrast Media Allergy (Verified 12/19/23 13:25) Rash atorvastatin (From Lipitor) Adverse Reaction (Verified 12/19/23 13:25) Upset Stomach bupropion (From Wellbutrin) Adverse Reaction (Verified 12/19/23 13:25) Other paroxetine (From Paxil) Adverse Reaction (Verified 12/19/23 13:25) Rousseau poorly rosuvastatin (From Crestor) Adverse Reaction (Verified [...] BM. Reports poor appetite due to nausea. [facility] Medical History (Updated 02/16/24 @ 09:31 [...] presents to the office today for f/u. [facility] established 11.27.23 w/ constipation and complaints of [...] average body habitus and well nourished [facility] Head: normal to inspection Ears: hearing grossly normal bilaterally Nose: external nose normal Eyes General: appearance normal, osmany (more content not included)... Normal [facility] Lipaseon 02-16-2024 Lipase [Catalytic activity/Vol] 37 U/L Normal 13-75 [facility] Comment on above: Result Comment: Yuko joseph note: LIPASE revised reference range effective 22. New Lipase methodology. Expected to produce lower values than the previous assay method. NEW Reference Range: 13 - 75 U/L Performed By: #### L 100.0100, L500.4050, L501.2450 ####[facility] [address] [place], [address] Absolute lymphocyte countOrd ered By: Tila Bailey on 01-17-2023 Lymphocytes Auto (Unsp spec) [#/Vol] 0.50 10*3/uL 0.83-4.51 [facility] Basophil percentageOrdered B y: Tila Bailey on 01-17-2023 Creatinine [Mass/Vol] 1.0 mg/dL 0.55-1.02 [facility] Basophils/100 WBC (Bld) 0.3 % 0-1 [facility] Bilirubin [Mass/Vol] 0.70 mg/dL 0.20-1.00 [facility] Comment on above: For patients on eltr ombopag therapy, use of Dimension Lottie TBIL is not recommended. Chloride [Moles/Vol] 105 mmol/L 98-107 [facility] Cholesterol [Mass/Vol] 264 mg/dL <200 [facility] Comment on above: <200 mg/dL Desirable 200-240 mg/dL Borderline >240 mg/dL High Risk Eosinophils/100 WBC (Bld) 2.5 % 0-5 [facility] Glucose [Mass/Vol] 150 mg/dL 74-106 [facility] Comment on above: Fasting Glucose resu lt greater than or equal to 126 mg/dL suggests DIABETES MELLITUS per A.D.A. criteria. Neutrophils (Bld) [#/Vol] 5.4 10*3/uL 2.0-7.7 [facility] Neutrophils/100 WBC (Bld) 84.7 % 47-70 [facility] Potassium [Moles/Vol] 4.1 mmol/L 3.5-5.1 [facility] Protein [Mass/Vol] 7.9 g/dL 6.4-8.2 [facility] Sodium [Moles/Vol] 139 mmol/L 136-145 [facility] Triglyceride [Mass/Vol] 60 mg/dL <199 [facility] Comment on above: The drugs N-Acetylcy steine and Metamizole may falsely depress this assay.Serum Triglycerides Reference Interval Normal <150 mg/dL Borderline high 150 - 199 mg/dL High 200 - 499 mg/dL Very High > or = 500 mg/dL WBC (Bld) [#/Vol] 6.4 10*3/uL 4.4-11.0 [facility] Blood erythrocytes count (nu mber/volume)Ordered By: Tila Bailey on 01-17-2023 RBC (Bld) [#/Vol] 4.36 10*6/uL 4.2-5.4 [facility] Blood hemoglobin measurement (mass/volume)Ordered By: Tila Bailey on 01-17-2023 Hemoglobin (Bld) [Mass/Vol] 12.7 g/dL 12.0-15.0 [facility] Blood lymphocytes/100 leukoc ytesOrdered By: Tila Bailey on 01-17-2023 Lymphocytes/100 WBC (Bld) 7.9 % 19-41 [facility] Blood manual differential co mment interpretation (narrative result)Ordered By: Tila Bailey on 01-17-2023 Manual differential comment Mehdi (Bld) [Interp] SCANNED [facility] Blood monocytes/100 leukocyt esOrdered By: Tila Bailey on 01-17-2023 Monocytes/100 WBC (Bld) 4.1 % 0-10 [facility] Blood platelet mean volumeOr dered By: Tila Bailey on 01-17-2023 Platelet mean volume (Bld) [Entitic vol] 8.7 fL 6.2-12.0 [facility] Determination of erythrocyte mean corpuscular volume (MCV)Ordered By: Tila Bailey on 01-17-2023 MCV (RBC) [Entitic vol] 89.0 fL 81-99 [facility] Hematocrit Auto (Bld) [Volum e fraction]Ordered By: Tila Bailey on 01-17-2023 Hematocrit (Bld) [Volume fraction] 38.8 % 37-47 [facility] - Chemistry and C hemistry - challengeOrdered By: Tila Bailey on 01-17-2023 GFR/1.73 sq M.predicted among non-blacks MDRD (S/P/Bld) [Vol rate/Area] 54.0000 mL/min/{1.73_m2} >60 [facility] ALP [Catalytic activity/Vol] 70 U/L 45-117 [facility] ALT [Catalytic activity/Vol] 27 U/L 13-56 [facility] CO2 [Moles/Vol] 27.0 mmol/L 21.0-32.0 [facility] Globulin (S) [Mass/Vol] 3.9 g/dL 2.2-4.2 [facility] Urea nitrogen/Creatinine [Mass ratio] 18.3 mg/mg 10-20 [facility] - Hematology and Cell countsOrdered By: Tila Bailey on 01-17-2023 Erythrocyte distribution width (RBC) [Entitic vol] 39.1 fL 35.1-43.9 [facility] Erythrocyte distribution width (RBC) [Ratio] 12.0 % 11.6-14.6 [facility] Immature granulocytes/100 WBC (Bld) 0.500 % 0.0-0.9 [facility] Comment on above: IG% - Immature Granu locytes (promyelocytes, myelocytes and metamyelocytes) > 1% indicates that a LEFT SHIFT is Present. MCH (RBC) [Entitic mass] 29.1 pg 27.0-32.0 [facility] Nucleated RBC/100 WBC (Bld) [Ratio] 0 % 0-5 [facility] MCHC Auto (RBC) [Mass/Vol]Or dered By: Tila Bailey on 01-17-2023 MCHC (RBC) [Mass/Vol] 32.7 g/dL 32-36 [facility] No Panel InformationOrdered By: Tila Bailey on 01-17-2023 Estimated GFR (MDRD) Amer 74 mL/min >60 [facility] Comment on above: GFR Calc Estimated GFR (MDRD) Non-Af Amer 61 mL/min >60 [facility] Comment on above: Non- GFR Calc Thyroid Stimulating Hormone (TSH) 0.86 uIU/mL 0.358-3.74 [facility] Vitamin D 25-Hydroxy 102.0 ng/mL [facility] Comment on above: Vitamin D 25(OH) Sta [...] 01-17-2023 Platelets (Bld) [#/Vol] 207 10*3/uL 150-450 [facility] Serum or plasma albumin jose martin urement (mass/volume)Ordered By: Tila Bailey on 01-17-2023 Albumin [Mass/Vol] 4.0 g/dL 3.2-5.0 [facility] Serum or plasma albumin/glob ulin mass ratioOrdered By: Tila Bailey on 01-17-2023 Albumin/Globulin [Mass ratio] 1.0 {ratio} 0.9-2.4 [facility] Serum or plasma calcium jose martin urement (mass/volume)Ordered By: Tila Bailey on 01-17-2023 Calcium [Mass/Vol] 9.3 mg/dL 8.5-10.1 [facility] Serum or plasma cholesterol in HDL measurement (mass/volume)Ordered By: Tila Bailey on 01-17-2023 Cholesterol in HDL [Mass/Vol] 81 mg/dL >40 [facility] Comment on above: The drugs N-Acetylcy steine and Metamizole may falsely depress this assay. Reference Range HDL <40 mg/dL Low HDL Cholesterol HDL >or= 60 mg/dL High HDL Cholesterol Serum or plasma cholesterol in VLDL measurement (mass/volume)Ordered By: Tila Bailey on 01-17-2023 Cholesterol in VLDL [Mass/Vol] 12 mg/dL 5-40 [facility] Serum or plasma creatinine m easurement (mass/volume)Ordered By: Tila Bailey on 01-17-2023 Creatinine [Mass/Vol] 0.93 mg/dL 0.55-1.02 [facility] Comment on above: The validity of the calculated GFR & GFRAA in patients over 70 years has not been determined. Clinical correlation is essential. Serum or plasma low density lipoprotein (LDL) cholesterol measurement (mass/volume)Ordered By: Tila Bailey on 01-17-2023 Cholesterol in LDL [Mass/Vol] 171 mg/dL 0-130 [facility] Serum or plasma urea nitroge n measurement (mass/volume)Ordered By: Tila Bailey on 01-17-2023 Urea nitrogen [Mass/Vol] 17 mg/dL 7-18 [facility] Thin prep Papanicolaou smear with manual screeningOrdered By: Tila Bailey on 01-17-2023 Thin prep Papanicolaou smear with manual screening 16 U/L 15-37 [facility] Thin prep Papanicolaou smear with manual screening 7 5-15 [facility] Laboratory - Chemistry and C hemistry - challengeOrdered By: Roxanna Lemus on 09-15-2022 Free T4 [Mass/Vol] 1.19 ng/dL 0.76-1.46 [facility] No Panel InformationOrdered By: Roxanna Lemus on 09-15-2022 Thyroid Stimulating Hormone (TSH) 2.38 uIU/mL 0.358-3.74 [facility] Absolute lymphocyte countOrd ered By: Vernon Garrett on 07-19-2022 Lymphocytes Auto (Unsp spec) [#/Vol] 1.39 10*3/uL 0.83-4.51 [facility] Basophil percentageOrdered B y: Vernon Simentaloctavio on 07-19-2022 Basophils/100 WBC (Bld) 0.6 % 0-1 [facility] Bilirubin [Mass/Vol] 0.50 mg/dL 0.20-1.00 [facility] Comment on above: For patients on eltr ombopag therapy, use of Dimension Lottie TBIL is not recommended. Chloride [Moles/Vol] 106 mmol/L 98-107 [facility] Eosinophils/100 WBC (Bld) 8.1 % 0-5 [facility] Glucose [Mass/Vol] 119 mg/dL 74-106 [facility] Comment on above: Fasting Glucose resu lt from 100 to 125 mg/dL suggests IMPAIRED HOMEOSTASIS per A.D.A. criteria. LDH [Catalytic activity/Vol] 188 U/L 84-246 [facility] Neutrophils (Bld) [#/Vol] 2.6 10*3/uL 2.0-7.7 [facility] Neutrophils/100 WBC (Bld) 53.9 % 47-70 [facility] Potassium [Moles/Vol] 4.1 mmol/L 3.5-5.1 [facility] Protein [Mass/Vol] 7.5 g/dL 6.4-8.2 [facility] Sodium [Moles/Vol] 139 mmol/L 136-145 [facility] WBC (Bld) [#/Vol] 4.8 10*3/uL 4.4-11.0 [facility] Blood erythrocytes count (nu mber/volume)Ordered By: Vernon Garrett on 07-19-2022 RBC (Bld) [#/Vol] 4.23 10*6/uL 4.2-5.4 [facility] Blood hemoglobin measurement (mass/volume)Ordered By: Vernon Garrett on 07-19-2022 Hemoglobin (Bld) [Mass/Vol] 12.7 g/dL 12.0-15.0 [facility] Blood lymphocytes/100 leukoc ytesOrdered By: Vernon Garrett on 07-19-2022 Lymphocytes/100 WBC (Bld) 28.9 % 19-41 [facility] Blood monocytes/100 leukocyt esOrdered By: Vernon Garrett on 07-19-2022 Monocytes/100 WBC (Bld) 8.3 % 0-10 [facility] Blood platelet mean volumeOr dered By: Vernon Garrett on 07-19-2022 Platelet mean volume (Bld) [Entitic vol] 8.4 fL 6.2-12.0 [facility] Determination of erythrocyte mean corpuscular volume (MCV)Ordered By: Vernon Garrett on 07-19-2022 MCV (RBC) [Entitic vol] 89.6 fL 81-99 [facility] Erythrocyte sedimentation ra teOrdered By: Vernon Garrett on 07-19-2022 ESR (Bld) [Velocity] 12 mm/h 0-30 [facility] Hematocrit Auto (Bld) [Volum e fraction]Ordered By: Vernon Garrett on 07-19-2022 Hematocrit (Bld) [Volume fraction] 37.9 % 37-47 [facility] Hemoglobin in reticulocytes (mass per reticulocyte)Ordered By: Vernon Garrett on 07-19-2022 Hemoglobin (Reticulocytes) [Entitic mass] 32.7 pg 30-35 [facility] Iron measurement (mass/mass) Ordered By: Vernon Tami on 07-19-2022 Iron (Unsp spec) [Mass/Mass] 55 ug/dL 50-170 [facility] Laboratory - Chemistry and C hemistry - challengeOrdered By: Bainbridge Tami on 07-19-2022 ALP [Catalytic activity/Vol] 106 U/L 45-117 [facility] ALT [Catalytic activity/Vol] 30 U/L 13-56 [facility] CO2 [Moles/Vol] 27.0 mmol/L 21.0-32.0 [facility] Cobalamin (Vitamin B12) [Mass/Vol] 428 pg/mL 211-911 [facility] Globulin (S) [Mass/Vol] 3.6 g/dL 2.2-4.2 [facility] Urea nitrogen/Creatinine [Mass ratio] 21.3 mg/mg 10-20 [facility] Laboratory - Hematology and Cell countsOrdered By: Vernon Garrett on 07-19-2022 Erythrocyte distribution width (RBC) [Entitic vol] 41.0 fL 35.1-43.9 [facility] Erythrocyte distribution width (RBC) [Ratio] 12.4 % 11.6-14.6 [facility] Immature granulocytes/100 WBC (Bld) 0.200 % 0.0-0.9 [facility] Comment on above: IG% - Immature Granu locytes (promyelocytes, myelocytes and metamyelocytes) > 1% indicates that a LEFT SHIFT is Present. MCH (RBC) [Entitic mass] 30.0 pg 27.0-32.0 [facility] Nucleated RBC/100 WBC (Bld) [Ratio] 0 % 0-5 [facility] MCHC Auto (RBC) [Mass/Vol]Or dered By: Vernon Garrett on 07-19-2022 MCHC (RBC) [Mass/Vol] 33.5 g/dL 32-36 [facility] No Panel InformationOrdered By: Vernon Garrett on 07-19-2022 Estimated GFR (MDRD) Amer 78 mL/min >60 [facility] Comment on above: GFR Calc Estimated GFR (MDRD) Non-Af Amer 64 mL/min >60 [facility] Comment on above: Non- GFR Calc Immature Reticulocyte Fraction 5.80 % 3.00-15.90 [facility] Reticulocyte Count 1.11 % 0.5-1.5 [facility] Total Iron Binding Capacity 319 ug/dL 250-450 [facility] Platelets bldOrdered By: David Garrett on 07-19-2022 Platelets (Bld) [#/Vol] 182 10*3/uL 150-450 [facility] Serum or plasma C reactive p rotein measurement (mass/volume)Ordered By: Vernon Garrett on 07-19-2022 CRP [Mass/Vol] mg/L 0.0-3.0 [facility] Comment on above: C-Reactive Protein ( CRP) provides useful information for thediagnosis, therapy and monitoring of inflammatory processesand associated diseases. For the evaluation of Relative Riskfor Cardiovascular Disease, a High Sensitivity CRP (HSCRP)should be ordered. Serum or plasma albumin jose martin urement (mass/volume)Ordered By: Vernon Garrett on 07-19-2022 Albumin [Mass/Vol] 3.9 g/dL 3.2-5.0 [facility] Serum or plasma albumin/glob ulin mass ratioOrdered By: [facility] on 07-19-2022 Albumin/Globulin [Mass ratio] 1.1 {ratio} 0.9-2.4 [facility] Serum or plasma calcium jose martin urement (mass/volume)Ordered By: Vernon Garrett on 07-19-2022 Calcium [Mass/Vol] 9.1 mg/dL 8.5-10.1 [facility] Serum or plasma creatinine m easurement (mass/volume)Ordered By: Vernon Garrett on 07-19-2022 Creatinine [Mass/Vol] 0.89 mg/dL 0.55-1.02 [facility] Comment on above: The validity of the calculated GFR & GFRAA in patients over 70 years has not been determined. Clinical correlation is essential. Serum or plasma ferritin manuela surement (mass/volume)Ordered By: Vernon Garrett on 07-19-2022 Ferritin [Mass/Vol] 55 ng/mL 8-252 [facility] Serum or plasma folate measu rement (mass/volume)Ordered By: Vernon Garrett on 07-19-2022 Folate [Mass/Vol] 49.60 ng/mL 3.1-55.4 [facility] Serum or plasma iron saturat ion measurement (mass fraction)Ordered By: Vernon [facility] on 07-19-2022 Iron saturation [Mass fraction] 17.2 % 15.0-55.0 [facility] Serum or plasma urea nitroge n measurement (mass/volume)Ordered By: Vernon Garrett on 07-19-2022 Urea nitrogen [Mass/Vol] 19 mg/dL 7-18 [facility] Thin prep Papanicolaou smear with manual screeningOrdered By: Vernon Garrett on 07-19-2022 Thin prep Papanicolaou smear with manual screening 20 U/L 15-37 [facility] Thin prep Papanicolaou smear with manual screening 6 5-15 [facility] Absolute lymphocyte countOrd ered By: Roxanna Lemus on 07-05-2022 Lymphocytes Auto (Unsp spec) [#/Vol] 1.06 10*3/uL 0.83-4.51 [facility] Basophil percentageOrdered B y: Roxanna Lemus on 07-05-2022 Basophils/100 WBC (Bld) 0.7 % 0-1 [facility] Eosinophils/100 WBC (Bld) 9.7 % 0-5 [facility] Neutrophils (Bld) [#/Vol] 1.2 10*3/uL 2.0-7.7 [facility] Neutrophils/100 WBC (Bld) 41.5 % 47-70 [facility] WBC (Bld) [#/Vol] 2.8 10*3/uL 4.4-11.0 [facility] Blood erythrocytes count (nu mber/volume)Ordered By: Roxanna Lemus on 07-05-2022 RBC (Bld) [#/Vol] 4.23 10*6/uL 4.2-5.4 [facility] Blood hemoglobin measurement (mass/volume)Ordered By: Roxanna Lemus on 07-05-2022 Hemoglobin (Bld) [Mass/Vol] 12.6 g/dL 12.0-15.0 [facility] Blood lymphocytes/100 leukoc ytesOrdered By: Roxanna Lemus on 07-05-2022 Lymphocytes/100 WBC (Bld) 38.0 % 19-41 [facility] Blood monocytes/100 leukocyt esOrdered By: Roxanna Lemus on 07-05-2022 Monocytes/100 WBC (Bld) 9.7 % 0-10 [facility] Blood platelet mean volumeOr dered By: Roxanna Lemus on 07-05-2022 Platelet mean volume (Bld) [Entitic vol] 8.9 fL 6.2-12.0 [facility] Determination of erythrocyte mean corpuscular volume (MCV)Ordered By: Roxanna Lemus on 07-05-2022 MCV (RBC) [Entitic vol] 90.5 fL 81-99 [facility] Hematocrit Auto (Bld) [Volum e fraction]Ordered By: Roxanna Lemus on 07-05-2022 Hematocrit (Bld) [Volume fraction] 38.3 % 37-47 [facility] Laboratory - Hematology and Cell countsOrdered By: Roxanna Lemus on 07-05-2022 Erythrocyte distribution width (RBC) [Entitic vol] 41.6 fL 35.1-43.9 [facility] Erythrocyte distribution width (RBC) [Ratio] 12.6 % 11.6-14.6 [facility] Immature granulocytes/100 WBC (Bld) 0.400 % 0.0-0.9 [facility] Comment on above: IG% - Immature Granu locytes (promyelocytes, myelocytes and metamyelocytes) > 1% indicates that a LEFT SHIFT is Present. MCH (RBC) [Entitic mass] 29.8 pg 27.0-32.0 [facility] Nucleated RBC/100 WBC (Bld) [Ratio] 0 % 0-5 [facility] MCHC Auto (RBC) [Mass/Vol]Or dered By: Roxanna Lemus on 07-05-2022 MCHC (RBC) [Mass/Vol] 32.9 g/dL 32-36 [facility] No Panel InformationOrdered By: Sandra Sheppard on 07-05-2022 Thyroid Stimulating Hormone (TSH) 4.94 uIU/mL 0.358-3.74 [facility] Platelets bldOrdered By: Abhijit Lemus on 07-05-2022 Platelets (Bld) [#/Vol] 198 10*3/uL 150-450 [facility] Absolute lymphocyte countOrd ered By: Roxanna Lemus on 06-07-2022 Lymphocytes Auto (Unsp spec) [#/Vol] 1.09 10*3/uL 0.83-4.51 [facility] Basophil percentageOrdered B y: Roxanna Lemus on 06-07-2022 Basophils/100 WBC (Bld) 1.1 % 0-1 [facility] Bilirubin [Mass/Vol] 1.10 mg/dL 0.20-1.00 [facility] Comment on above: For patients on eltr ombopag therapy, use of Dimension Lottie TBIL is not recommended. Chloride [Moles/Vol] 107 mmol/L 98-107 [facility] Cholesterol [Mass/Vol] 252 mg/dL <200 [facility] Comment on above: <200 mg/dL Desirable 200-240 mg/dL Borderline >240 mg/dL High Risk Eosinophils/100 WBC (Bld) 10.7 % 0-5 [facility] Glucose [Mass/Vol] 94 mg/dL 74-106 [facility] Neutrophils (Bld) [#/Vol] 1.1 10*3/uL 2.0-7.7 [facility] Neutrophils/100 WBC (Bld) 39.6 % 47-70 [facility] Potassium [Moles/Vol] 3.9 mmol/L 3.5-5.1 [facility] Protein [Mass/Vol] 7.4 g/dL 6.4-8.2 [facility] Sodium [Moles/Vol] 139 mmol/L 136-145 [facility] Triglyceride [Mass/Vol] 94 mg/dL <199 [facility] Comment on above: The drugs N-Acetylcy steine and Metamizole may falsely depress this assay.Serum Triglycerides Reference Interval Normal <150 mg/dL Borderline high 150 - 199 mg/dL High 200 - 499 mg/dL Very High > or = 500 mg/dL WBC (Bld) [#/Vol] 2.7 10*3/uL 4.4-11.0 [facility] Blood erythrocytes count (nu mber/volume)Ordered By: Roxanna Lemus on 06-07-2022 RBC (Bld) [#/Vol] 4.13 10*6/uL 4.2-5.4 [facility] Blood hemoglobin measurement (mass/volume)Ordered By: Roxanna Lemus on 06-07-2022 Hemoglobin (Bld) [Mass/Vol] 12.1 g/dL 12.0-15.0 [facility] Blood lymphocytes/100 leukoc ytesOrdered By: Roxanna Lemus on 06-07-2022 Lymphocytes/100 WBC (Bld) 40.1 % 19-41 [facility] Blood monocytes/100 leukocyt esOrdered By: Roxanna Lemus on 06-07-2022 Monocytes/100 WBC (Bld) 8.1 % 0-10 [facility] Blood platelet mean volumeOr dered By: Roxanna Lemus on 06-07-2022 Platelet mean volume (Bld) [Entitic vol] 8.8 fL 6.2-12.0 [facility] Determination of erythrocyte mean corpuscular volume (MCV)Ordered By: Roxanna Lemus on 06-07-2022 MCV (RBC) [Entitic vol] 88.6 fL 81-99 [facility] Hematocrit Auto (Bld) [Volum e fraction]Ordered By: Roxanna Lemus on 06-07-2022 Hematocrit (Bld) [Volume fraction] 36.6 % 37-47 [facility] Laboratory - Chemistry and C hemistry - challengeOrdered By: Roxanna Lemus on 06-07-2022 ALP [Catalytic activity/Vol] 84 U/L 45-117 [facility] ALT [Catalytic activity/Vol] 26 U/L 13-56 [facility] CO2 [Moles/Vol] 27.0 mmol/L 21.0-32.0 [facility] Globulin (S) [Mass/Vol] 3.6 g/dL 2.2-4.2 [facility] Urea nitrogen/Creatinine [Mass ratio] 19.4 mg/mg 10-20 [facility] Laboratory - Hematology and Cell countsOrdered By: Roxanna Lemus on 06-07-2022 Erythrocyte distribution width (RBC) [Entitic vol] 41.2 fL 35.1-43.9 [facility] Erythrocyte distribution width (RBC) [Ratio] 12.8 % 11.6-14.6 [facility] Immature granulocytes/100 WBC (Bld) 0.400 % 0.0-0.9 [facility] Comment on above: IG% - Immature Granu locytes (promyelocytes, myelocytes and metamyelocytes) > 1% indicates that a LEFT SHIFT is Present. MCH (RBC) [Entitic mass] 29.3 pg 27.0-32.0 [facility] Nucleated RBC/100 WBC (Bld) [Ratio] 0 % 0-5 [facility] MCHC Auto (RBC) [Mass/Vol]Or dered By: Roxanna Lemus on 06-07-2022 MCHC (RBC) [Mass/Vol] 33.1 g/dL 32-36 [facility] No Panel InformationOrdered By: Roxanna Lemus on 06-07-2022 Estimated GFR (MDRD) Amer 79 mL/min >60 [facility] Comment on above: GFR Calc Estimated GFR (MDRD) Non-Af Amer 65 mL/min >60 [facility] Comment on above: Non- GFR Calc Thyroid Stimulating Hormone (TSH) 32.30 uIU/mL 0.358-3.74 [facility] Platelets bldOrdered By: Abhijit Lemus on 06-07-2022 Platelets (Bld) [#/Vol] 188 10*3/uL 150-450 [facility] Serum or plasma albumin jose martin urement (mass/volume)Ordered By: Roxanna Lemus on 06-07-2022 Albumin [Mass/Vol] 3.8 g/dL 3.2-5.0 [facility] Serum or plasma albumin/glob ulin mass ratioOrdered By: Roxanna Lemus on 06-07-2022 Albumin/Globulin [Mass ratio] 1.1 {ratio} 0.9-2.4 [facility] Serum or plasma calcium jose martin urement (mass/volume)Ordered By: Roxanna Lemus on 06-07-2022 Calcium [Mass/Vol] 8.9 mg/dL 8.5-10.1 [facility] Serum or plasma cholesterol in HDL measurement (mass/volume)Ordered By: Roxanna Lemus on 06-07-2022 Cholesterol in HDL [Mass/Vol] 66 mg/dL >40 [facility] Comment on above: The drugs N-Acetylcy steine and Metamizole may falsely depress this assay. Reference Range HDL <40 mg/dL Low HDL Cholesterol HDL >or= 60 mg/dL High HDL Cholesterol Serum or plasma cholesterol in VLDL measurement (mass/volume)Ordered By: Roxanna Lemus on 06-07-2022 Cholesterol in VLDL [Mass/Vol] 19 mg/dL 5-40 [facility] Serum or plasma creatinine m easurement (mass/volume)Ordered By: Roxanna Lemus on 06-07-2022 Creatinine [Mass/Vol] 0.88 mg/dL 0.55-1.02 [facility] Comment on above: The validity of the calculated GFR & GFRAA in patients over 70 years has not been determined. Clinical correlation is essential. Serum or plasma low density lipoprotein (LDL) cholesterol measurement (mass/volume)Ordered By: Roxanna Lemus on 06-07-2022 Cholesterol in LDL [Mass/Vol] 167 mg/dL 0-130 [facility] Serum or plasma urea nitroge n measurement (mass/volume)Ordered By: Roxanna Lemus on 06-07-2022 Urea nitrogen [Mass/Vol] 17 mg/dL 7-18 [facility] Thin prep Papanicolaou smear with manual screeningOrdered By: Roxanna Lemus on 06-07-2022 Thin prep Papanicolaou smear with manual screening 19 U/L 15-37 [facility] Thin prep Papanicolaou smear with manual screening 5 5-15 [facility] Thin prep Papanicolaou smear with manual screening 21.3 mg/L NO RANGE EST. [facility] Vital Signs Date Time Vital Sign Value Performing Clinician Facility 10-05-2024 14:26-040 Body temperature 99.39 [degF] David Rocha MD Work Phone: [facility] 10-05-2024 [id number] Body weight 72.2 kg David Rocha MD Work Phone: [facility] 10-05-2024 14:26-0400 Diastolic blood pressure 78 mm[Hg] David Rocha MD Work Phone: [facility] 10-05-2024 14:26-0400 Heart rate 85 /min David Rocha MD Work Phone: [facility] 10-05-2024 [id number] Respiratory rate 18 /min David Rocha MD Work Phone: [facility] 10-05-2024 14:26-0400 SaO2% (BldA) [Mass fraction] 98 % David Rocha MD Work Phone: [facility] 10-05-2024 14:26-0400 Systolic blood pressure 122 mm[Hg] David Rocha MD Work Phone: [facility] 07-25-2022 13:15-0400 Body height 165.1 cm DO Roxanna Lemus Work Phone: [facility] 07-25-2022 13:14-0400 Body mass index (BMI) [Ratio] 26.8 kg/m2 DO Roxanna Lemus Work Phone: [facility] 07-25-2022 13:14-0400 Body temperature 97.9 [degF] DO Roxanna Allan Work Phone: [facility] 07-25-2022 13:14-0400 Body weight 73.17 kg DO Roxanna Allan Work Phone: [facility] 07-25-2022 13:14-0400 Diastolic blood pressure 68 mm[Hg] DO Roxanna Allan Work Phone: [facility] 07-25-2022 13:14-0400 Heart rate 96 /min DO Roxanna Allan Work Phone: [facility] 07-25-2022 13:14-0400 Respiratory rate 16 /min DO Roxanna Allan Work Phone: [facility] 07-25-2022 13:14-0400 SaO2% (BldA) [Mass fraction] 96 % DO Roxanna Allan Work Phone: [facility] 07-25-2022 13:14-0400 Systolic blood pressure 112 mm[Hg] DO Roxanna Allan Work Phone: [facility] 07-19-2022 14:30-0400 Body mass index (BMI) [Ratio] 26.6 kg/m2 DO Roxanna Allan Work Phone: [facility] 07-19-2022 14:30-0400 Body temperature 97.1 [degF] DO Roxanna Allan Work Phone: [facility] 07-19-2022 14:30-0400 Body weight 72.77 kg DO Roxanna Allan Work Phone: [facility] 07-19-2022 14:30-0400 Diastolic blood pressure 73 mm[Hg] DO Roxanna Allan Work Phone: [facility] 07-19-2022 14:30-0400 Heart rate 96 /min DO Roxanna Allan Work Phone: [facility] 07-19-2022 14:30-0400 Respiratory rate 16 /min DO Roxanna Allan Work Phone: [address]16-2023 14:30-0400 SaO2% (BldA) [Mass fraction] 97 % DO Roxanna Lemus Work Phone: [facility] 07-19-2022 14:30-0400 Systolic blood pressure 118 mm[Hg] DO Roxanna Lemus Work Phone: [facility] Encounters Encounter Date Encounter Type Care Provider Facility Start: 01-08-2025 ambulatory Rudi Chi Rajan Facility:[facility] Start: 01-08-2025 End: 01-08-2025 [place]i [place] Rajan [place]: 12-03-2024 ambulatory Rudi Chi Rajan Facility:[facility] Start: 11-29-2024 End: 11-29-2024 ambulatory Rudi Chi Rajan Facility:[facility] Start: 11-28-2024 End: 11-28-2024 ambulatory Rudi Chi Rajan Facility:[facility] Start: 10-29-2024 End: 10-29-2024 ambulatory Rudi Chi Rajan Facility:[facility] Start: 10-25-2024 End: 10-25-2024 ambulatory Rudi Chi Rajan [place] Start: 10-23-2024 End: 10-23-2024 ambulatory Rudi Chi Rajan Facility:[facility] Start: 10-16-2024 End: 10-16-2024 ambulatory Rudi Chi Rajan Facility:[facility] Start: 10-14-2024 End: 10-14-2024 Emergency department patient visit Chalon Rosaline Facility:[facility] Start: 10-11-2024 End: 10-12-2024 ambulatory Chalon Rosaline Facility:[facility] Start: 10-11-2024 End: 10-11-2024 ambulatory Rajwinder Luis Facility:[facility] Start: 10-06-2024 End: 10-06-2024 Emergency department patient visit Chris Phillips Facility:[facility] Start: 10-05-2024 End: 10-05-2024 ambulatory DAVID ROCHA Facility:[facility] Start: 10-05-2024 End: 10-05-2024 Patient encounter procedure David Rocha MD Work Phone: [facility] Comment on above: Influenza-like illne ss (Primary Dx); Nausea Start: 10-04-2024 ambulatory Chalon Rosaline Facility:[facility] Start: 07-30-2024 End: 07-30-2024 ambulatory Chalon Rosaline Facility:[facility] Start: 06-20-2024 End: 06-20-2024 ambulatory Chalon Rosaline Facility:[facility] Start: 05-31-2024 End: 05-31-2024 ambulatory Chalon Rosaline Facility:[facility] Start: 05-31-2024 End: 05-31-2024 ambulatory Chalon Rosaline Facility:[facility] Start: 05-30-2024 End: 05-30-2024 ambulatory Chalon Rosaline Facility:[facility] Start: 05-17-2024 ambulatory Chalon Rosaline Facility:[facility] Start: 04-22-2024 End: 04-22-2024 ambulatory Chalon Rosaline Facility:[facility] Start: 04-16-2024 ambulatory Chalon Rosaline Facility:[facility] Start: 04-16-2024 End: 04-16-2024 ambulatory Chalon Rosaline Facility:[facility] Start: 02-16-2024 End: 02-16-2024 ambulatory Chalon Rosaline Facility:[facility] Start: 02-16-2024 End: 02-16-2024 ambulatory Chalon Rosaline Facility:[facility] Start: 01-17-2023 End: 01-17-2023 ambulatory [facility] Work Phone: Start: 01-17-2023 End: 01-17-2023 Patient encounter procedure [facility], [facility] Work Phone: Start: 09-15-2022 End: 09-15-2022 ambulatory DO Roxanna Lemus Work Phone: [facility] Work Phone: Start: 09-15-2022 End: 09-15-2022 Patient encounter procedure DO Roxanna Lemus Work Phone: [facility] Work Phone: Start: 07-25-2022 End: 07-25-2022 Patient encounter procedure DO Roxanna Lemus Work Phone: [facility] Work Phone: Start: 07-19-2022 Registered Recurring DO Mavis Lemus Work Phone: [facility] Start: 07-19-2022 End: 07-19-2022 Patient encounter procedure DO Roxanna Lemus Work Phone: [facility] Work Phone: Start: 07-14-2022 Non-patient / Non-visit DO Abhijit Lemus Work Phone: [facility] Start: 07-05-2022 End: 07-05-2022 ambulatory [facility] Work Phone: Start: 07-05-2022 End: 07-05-2022 Patient encounter procedure [facility] Start: 06-21-2022 End: 06-21-2022 ambulatory [facility] Work Phone: Start: 06-21-2022 End: 06-21-2022 Patient encounter procedure [facility]-Outpatient Bone Densitometry Start: 06-07-2022 End: 06-07-2022 Patient encounter procedure [facility] Start: 06-29-2021 End: 06-29-2021 Patient encounter procedure [facility] Procedures Date Procedure Procedure Detail Performing Clinician Start: 01-17-2023 Computed tomography of abdomen and pelvis with contrast Start: 06-21-2022 Dual energy X-ray absorptiometry Start: 06-29-2021 Radiography of ankle Plan of Treatment Date Care Activity Detail Author Start: 11-27-2024 Urine microalbumin profile DTaP,Tdap,Td Vaccine (2 - Td or Tdap) [facility] Start: 11-04-2024 Influenza vaccination Influenza Vacc ine (#1) [facility] Start: 03-06-2024 Advance Directive Discussion Advance Directive Discussion [facility] Start: 02-09-2022 Shingrix Vaccine (2 of 2) Salguero grix Vaccine (2 of 2) [facility] Start: 07-28-2003 Screening for osteoporosis Bone Density Screening [facility] Start: 07-28-1983 Diabetes Screening Diabetes Screenin g [facility] Start: 1958 Anxiety Screening Anxiety Screening [facility] Start: 1958 Depression Screening Depression Scre ening [facility] CBC W Auto Different ial panel - Blood [facility] Ferritin [Mass/volum e] in Serum or Plasma [facility] Folate [Mass/volume] in Serum or Plasma [facility] Iron and Iron bindin g capacity panel - Serum or Plasma [facility] Lactate dehydrogenas e measurement [facility] Vitamin B12 measurement [facility] Immunizations Immunization Date Immunization Notes Care Provider Marilia stephenson 11-28-2023 influenza virus vaccine, unspecified formulation David Rocha MD Work Phone: [facility] 05-08-2020 Covid (Moderna) [facility] 04-10-2020 [facility] 11-05-2015 Influenza virus vaccine [facility] Payers Date Payer Category Payer Private Health Insurance [facility] [id number] 2024 Self-pay [id number] 2024 Unknown [id number] 2003 Medicare [id number] Unknown [id number] 2.840.1.422236.3.579.2 .462 Unknown [id number] 2.840.1.541374.3.579.2 .462 Unknown [id number] 2.840.1.774559.3.579.2 .462 Unknown [id number] .840.1.969935.3.579.2 .462 Unknown [id number] .840.1.999895.3.579.2 .462 Unknown [id number] 2.840.1.357566.3.579.2 .462 Unknown [id number] 2.840.1.060132.3.579.2 .462 Unknown [id number] 2.840.1.893433.3.579.2 .462 Unknown [id number] .840.1.183692.3.579.2 .462 Unknown [id number] .840.1.989568.3.579.2 .462 Unknown [id number] 2.840.1.934620.3.579.2 .462 Unknown [id number] 2.840.1.926348.3.579.2 .462 Unknown [id number] .840.1.613173.3.579.2 .462 Unknown [id number] .840.1.738077.3.579.2 .462 Unknown [id number] .840.1.745475.3.579.2 .462 Unknown [id number] 2.840.1.386738.3.579.2 .462 Unknown [id number] 2.840.1.523867.3.579.2 .462 Unknown [id number] 2.16.840.1.388724.3.579.2 .462 Unknown [id number] 2.16.840.1.966570.3.579.2 .462 Unknown [id number] 2.16.840.1.462667.3.579.2 .462 Unknown [id number] 2.16.840.1.227189.3.579.2 .462 Unknown [id number] 2.16.840.1.267451.3.579.2 .462 Unknown [id number] 2.16.840.1.693218.3.579.2 .462 Unknown [id number] 2.16.840.1.072595.3.579.2 .462 Unknown [id number] 2.16.840.1.930215.3.579.2 .462 Unknown [id number] 2.16.840.1.291094.3.579.2 .462 Social History Date Type Detail Facility Start: 07-04-2016 End: 07-19-2022 Tobacco smoking status NHIS Unknown if ever smoked [facility] Start: 1940 Sex Assigned At Female W [facility] Start: 1940 Sex assigned at Not on file [facility] Gender identity Not on file [facility] Progress note 10-05-2024 Note Date & Type Note Facility 10-05-2024 Note HNO ID: [id number] Author: DAVID ROCHA MD Service: ? Author Type: Physician Type: Progress Notes Filed: 10/05/2024 14:54 Note Text: URGENT CARE [facility] Alison Santacruz is a 84 year old [...] for the following reason(s): Benign exam Procedures [facility] History of Present illness Narrative 10-05-2024 [...] Benign exam Procedures documented in this encounter [facility] Clinical Note 04-16-2024 Note Date & Type Note Facility 04-16-2024 [facility] Medical Records Department [address] [place] [address] History Physical Exam 04/16/24 1511 MR#: [id number] Acct: [id number] Name: ALISON SANTACRUZ Rep #: [id number] : 1940 83 From: Willie Shook DO PCP: Dr. Eddie Waggoner MD Status:[facility] Location: [place] [address] HPI - General General Date of Admission: [...] stop this. She feels weak and fatigued. [facility] Medical History Arthritis Gastric reflux Wears [...] DAILY 07/14/22 12/15/23 Hi story glucosamine 750 rz-nrsqrqagskz-uba 1 tab PO DAILY 07/14/22 04/15/24 History [...] Verified 04/16/24 13:29 paroxetine (From Paxil) AdvReac Rousseau poorly Verified 04/16/24 13:29 rosuvastatin (From Crestor) [...] rectal bleeding, tenes (more content not included)... [facility] Evaluation note Note Date & Type Note Facility Evaluation note No assessment information availa ble [facility] Work Phone: Evaluation note Note Date & Type Note Facility Evaluation note Diagnosis Onset Date Leukopenia resolved Leukopenia resolved [facility] Work Phone: Evaluation note Note Date & Type Note Facility Evaluation note Diagnosis Influenza-like illness- Primary Influenza with other respiratory manifestations Nausea Nausea alone documented in this encounter [facility] Chief Complaint and Reason for Visit Chief Complaint RIGHT ANKLE Chief Complaint OSTEO Chief Complaint OSTEO Amb Documentation NEW PT - LEUKOPENIA lab 1WK REVIEW LABS E ORDER Reason for Visit Leukopenia Leukopenia Chief Complaint RLQ ABD PAIN/ ADD LA BWORK FOR @[facility] Advance Directives No Advanced Directives Records Found Advance Directive Response Recorded Date/ Time Living Will Yes July 20, 2016 1 0:50am Power of Junior Administrative Assistant Yes July 20, 2016 10:50am Advance Directive Response Recorded Date/ Time Living Will Yes July 20, 2016 9 :50am Power of Junior Administrative Assistant Yes July 20, 2016 9:50am Family History [...] or prosecute any alcohol or drug abuse patient.[facility] Reason for Visit (unrecogniz ed section and content) Reason Comments Flu Like Symptoms X 3 days-diarrhea, s tomach hurts, nausea, hot and feels dizzy INFORMATION SOURCE (unrecogn ized section and content) DATE CREATED AUTHOR 10/07/2024 [facility] DATE CREATED AUTHOR AUTHOR'S ORGANIZ ATION 01/10/[address] [facility] FOR RECORDS PERTAINING TO PATIENTS WHO [...] BE BASED ON THE PRIMARY CLINICAL RECORDS. [employer] provides no warranty or guarantee of the accuracy or completeness of information in this document.
--- NOTE | 2025-03-05 09:09 | CT_ITS ---
PROCEDURE: ABDOMEN/PEL W ORAL CONT ONLY 03/05/2025 REASON FOR EXAM: ABD PAIN TECHNIQUE: Procedure Code: [id number] Modality: CT Procedure: ABDOMEN/PEL W ORAL CONT ONLY Noncontrast technique limits evaluation of the abdominal and pelvic viscera. Coronal and Sagittal reconstruction series were provided. One or more dose reduction techniques were used (e.g., Automated exposure control, adjustment of the mA and/or kV according to patient size, use of iterative reconstruction technique). RADIATION DOSE SUMMARY: CTDlvol: 9.88 mGy DLP: 459.12 mGycm COMPARISON: CT abdomen and pelvis 10/14/2024. FINDINGS: Lung bases: Clear. Liver: Unremarkable. Gallbladder: Unremarkable. No biliary dilation. Spleen: Unremarkable. Pancreas: Unremarkable. Adrenals: Unremarkable. Kidneys: No hydronephrosis. No nephrolithiasis. Bladder: Unremarkable. Reproductive Organs: Unremarkable. Bowel: No bowel thickening. No bowel obstruction. Appendix: Normal. Lymph nodes: No lymphadenopathy. Vasculature: No aneurysm. Atherosclerotic calcifications. Peritoneum / Retroperitoneum: No free air or free fluid. Bones: No acute bony abnormalities. Multilevel degenerate changes of the lumbar spine. Limited study due to lack of IV contrast. CT/Abdomen/Pel W ORAL Cont Only IMPRESSION: No acute abdominopelvic abnormalities. Reading Location: [facility]
== END | disposition home or self-care (01) ==
PROVIDERS: PCP Family Medicine Geriatric Medicine; Referring Provider Family Medicine Geriatric Medicine; Visit Provider Family Medicine Geriatric Medicine
DX: R10.9 Unspecified abdominal pain (principal); N39.0 Urinary tract infection, site not specified
CPT/HCPCS: 74176; 82274; 83630; 87177; 87209; 87493